=== PATIENT | male | born 1935 | race Caucasian/White ===

== ENCOUNTER → 2016-08-13 | Outpatient (CLI) | payer OTHER ==
[~2016-08-13] MED LIST: ADVIN25/60 INH; APIX1TAB PO; ASPCH81X PO; ATOR-22 PO; BENZ100C7 PO; FINA5TAB4 PO; GABA-113 PO; INSU1INJ23 SQ; IPRASOL4 INH; LEVO50TA PO; LISI5TAB PO; MAGN10TA PO; METO50TA16 PO; MRLP17 PO; OMEP20CA9 PO; TAMS0.4C38 PO
--- NOTE | 2016-08-21 09:53 | CODING QUERY MEDICAL NECESSITY ---
SUPPORTING DIAGNOSIS NEEDED Dr. Comer, A supporting diagnosis is required for the test/procedure performed on this patient in order for us to be reimbursed by the patient's insurance. Please provide a supporting diagnosis for the following test/procedure listed below next to the test name along with your signature. *If there is no additional diagnosis for this patient that would support the following test/procedure please document that below next to the test/procedure. Test(s)/Procedure(s) that require a supporting diagnosis: * ([id number]) DXA BONE DENSITY, AXIAL DIAGNOSIS: DATE OF SERVICE: 08/13/16 Provider Signature: Date: Thank you Geovanni Barkley [facility] Information Management Once completed, please kindly fax back to [phone] For questions please call [phone]
== END | disposition home or self-care (01) ==
LOC: C.MAMM 09:50
PROVIDERS: ATTEND Internal Medicine
DX: M85.80 Other specified disorders of bone density and structure, unspecified site (principal); R29.890 Loss of height

== ENCOUNTER → 2016-11-20 | Outpatient (CLI) | payer OTHER ==
[2016-11-20 17:34] LABS: MEAN CORPUSCULAR HGB CONC 31.4 g/dl (32-36)
[2016-11-20 17:45] LABS: URINE APPEARANCE CLEAR (CLEAR); URINE BILIRUBIN NEG (NEG); URINE COLOR YELLOW; URINE NITRITE NEG (NEG); URINE PH 5.5 (4.5-7.5); URINE SPECIFIC GRAVITY 1.022 (1.000-1.030); UROBILINOGEN NEG (NEG); ZZUR CULT IF INDIC CLEAN CATCH NO
[2016-11-20 17:46] LABS: MANUAL MICROSCOPIC REQUIRED? NO; REVIEW REQ? NO
[2016-11-20 18:00] LABS: BLOOD UREA NITROGEN 27 mg/dl (7-18); GLUCOSE 120 mg/dl (70-99)
[2016-11-20 18:01] LABS: CALCIUM 9.2 mg/dl (8.5-10.1); CARBON DIOXIDE 25 mmol/L (21-32); CHLORIDE 110 mmol/L (98-107); PHOSPHORUS 3.5 mg/dl (2.5-4.9); POTASSIUM 4.6 mmol/L (3.5-5.1); SODIUM 142 mmol/L (136-145); TOTAL IRON BINDING CAPACITY 382 mcg/dl (250-450)
[2016-11-20 18:07] LABS: HEMATOCRIT 40.7 % (42-52); MEAN CELL VOLUME 76.9 fL (80-100); MEAN CORPUSCULAR HEMOGLOBIN 24.2 pg (25-34); PLATELET COUNT 115 K/uL (130-400); RED BLOOD COUNT 5.29 M/uL (4.7-6.1); WHITE BLOOD COUNT 5.84 K/uL (4.8-10.8)
[2016-11-20 18:08] LABS: ACANTHOCYTES 1+; BASO % 0.3 %; BASO ABS # 0.02 K/uL (0-0.2); COMPLETE YES; EOS % 2.4 %; IG% 0.2 %; LYMPH % 34.4 %; LYMPH ABS # 2.01 K/uL (1.2-3.4); MONO % 8.2 %; NEUT % 54.5 %; PLT ESTIMATE DECREASED
[2016-11-20 18:14] LABS: FERRITIN 8.4 ng/ml (8.0-388.0)
[2016-11-20 18:14] LABS: RATIO 13.4 mcg/mg (0-30.0)
[2016-11-21 07:31] LABS: ESTIMATED AVERAGE GLUCOSE 169 mg/dl; HA1C FLAG Normal (Normal)
== END | disposition home or self-care (01) ==
LOC: C.LABBFT 14:44
PROVIDERS: ATTEND Internal Medicine
DX: N18.3 Chronic kidney disease, stage 3 (moderate) (principal); D64.9 Anemia, unspecified; E03.9 Hypothyroidism, unspecified; M85.80 Other specified disorders of bone density and structure, unspecified site; E11.40 Type 2 diabetes mellitus with diabetic neuropathy, unspecified

== ENCOUNTER → 2016-12-10 | Outpatient (CLI) | payer OTHER ==
--- NOTE | 2016-12-10 11:39 | DIAGNOSTIC IMAGING REPORT ---
RIGHT ANKLE 3 VIEWS CLINICAL HISTORY: Right ankle sprain. FINDINGS: 3 views the right ankle are obtained. No prior studies are available for comparison at the time of dictation. The skeletal structures are osteopenic. No fracture is seen. The ankle mortise is intact. Large dorsal and plantar calcaneal enthesophytes are observed. There is a small joint effusion. Soft tissue swelling is present around the ankle. Surgical clips are noted in the lower calf. There is advanced atherosclerotic calcification of the regional arteries. IMPRESSION: 1. Soft tissue swelling and joint effusion. No fracture is seen. 2. Osteopenia and large heel spurs. Electronically signed by: Crow Wells M.D. 12/10/2016 11:38 AM Dictated Date/Time: 12/10/2016 11:37 AM
== END | disposition home or self-care (01) ==
LOC: C.RAD 11:14
PROVIDERS: ATTEND Physician Assistant Medical
DX: S93.401A Sprain of unspecified ligament of right ankle, initial encounter (principal); X58.XXXA Exposure to other specified factors, initial encounter

== ENCOUNTER → 2016-12-24 | Outpatient (CLI) | payer OTHER ==
--- NOTE | 2016-12-24 13:14 | DIAGNOSTIC IMAGING REPORT ---
RIGHT ANKLE MIN 3 VIEWS CLINICAL HISTORY: Right ankle pain status post trauma COMPARISON: None. DISCUSSION: Surgical clips are present within the medial soft tissues. There are vascular calcifications present. No acute fractures or dislocations are visualized. The ankle mortise appears intact on these nonstress views. There is Achilles insertional and plantar calcaneal spurring. IMPRESSION: No fractures or dislocations identified. Electronically signed by: Bruce Olvera M.D. 12/24/2016 1:12 PM Dictated Date/Time: 12/24/2016 1:12 PM
--- NOTE | 2016-12-24 13:15 | DIAGNOSTIC IMAGING REPORT ---
RIGHT FOOT MIN 3 VIEWS CLINICAL HISTORY: Right foot pain TRAUMA COMPARISON: None. DISCUSSION: The bones are osteopenic. There are vascular calcifications present. There are no acute fractures or dislocations. There are no erosive or destructive changes. There is calcaneal spurring. IMPRESSION: No acute fractures identified. Electronically signed by: Bruce Olvera M.D. 12/24/2016 1:14 PM Dictated Date/Time: 12/24/2016 1:13 PM
== END | disposition home or self-care (01) ==
LOC: C.RDSM 12:50
PROVIDERS: ATTEND Family Medicine
DX: M79.671 Pain in right foot (principal); S93.401A Sprain of unspecified ligament of right ankle, initial encounter; X58.XXXA Exposure to other specified factors, initial encounter

== ENCOUNTER → 2017-05-21 | Outpatient (CLI) | payer OTHER ==
[2017-05-21 18:15] LABS: URINE APPEARANCE CLEAR (CLEAR); URINE BILIRUBIN NEG (NEG); URINE COLOR DK YELLOW; URINE NITRITE NEG (NEG); URINE PH 5.5 (4.5-7.5); URINE SPECIFIC GRAVITY 1.021 (1.000-1.030); UROBILINOGEN NEG (NEG)
[2017-05-21 18:29] LABS: MANUAL MICROSCOPIC REQUIRED? NO; REVIEW REQ? NO
== END | disposition home or self-care (01) ==
LOC: C.LABBFT 11:54
PROVIDERS: ATTEND Physician Assistant Medical
DX: M54.5 Low back pain (principal)

== ENCOUNTER → 2017-06-05 | Outpatient (CLI) | payer OTHER ==
[2017-06-05 17:58] LABS: CHOLESTEROL/HDL RATIO 4.7; THYROID STIMULATING HORMONE 0.882 uIu/ml (0.300-4.500)
[2017-06-05 18:45] LABS: BASO % 0.5 %; BASO ABS # 0.03 K/uL (0-0.2); COMPLETE YES; EOS % 4.8 %; HEMATOCRIT 48.9 % (42-52); IG% 0.2 %; LYMPH ABS # 2.27 K/uL (1.2-3.4); MEAN CELL VOLUME 86.9 fL (80-100); MEAN CORPUSCULAR HEMOGLOBIN 29.7 pg (25-34); MEAN PLATELET VOLUME 12.3 fL (7.4-10.4); MONO % 7.1 %; NEUT % 51.4 %; PLATELET COUNT 101 K/uL (130-400); PLT ESTIMATE DECREASED; RED BLOOD COUNT 5.63 M/uL (4.7-6.1); WHITE BLOOD COUNT 6.31 K/uL (4.8-10.8)
[2017-06-06 06:25] LABS: ESTIMATED AVERAGE GLUCOSE 140 mg/dl; HA1C FLAG Normal (Normal)
== END | disposition home or self-care (01) ==
LOC: C.LABBFT 15:23
PROVIDERS: ATTEND Internal Medicine
DX: E78.5 Hyperlipidemia, unspecified (principal); E55.9 Vitamin D deficiency, unspecified; E11.21 Type 2 diabetes mellitus with diabetic nephropathy; D69.6 Thrombocytopenia, unspecified; E03.9 Hypothyroidism, unspecified

== ENCOUNTER → 2017-07-15 | Outpatient (CLI) | payer OTHER ==
--- NOTE | 2017-07-15 12:06 | DIAGNOSTIC IMAGING REPORT ---
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 Coronal reformatted images were acquired. A dose lowering technique was utilized adhering to the principles of ALARA. COMPARISON STUDY: None. FINDINGS: Both mastoids are opacified. There is soft tissue opacification of the left middle ear cavity. There is ossicular erosion. The scutum is eroded. The findings are indicative of a cholesteatoma. On the right, there is a small amount of soft tissue within the middle ear cavity abutting the lateral aspect of the ossicles and tympanic membrane. The scutum is also eroded. A right-sided cholesteatoma is also suspected. There is tympanic membrane thickening. The internal auditory canals appear symmetric in appearance. No cochlear or semicircular canal abnormalities are visualized. IMPRESSION: 1. Opacification of both mastoids 2. Soft tissue opacification of the left middle ear cavity with a singular erosion and scutum erosion. The findings are consistent with a cholesteatoma 3. Small amount of soft tissue with the right middle ear cavity with scutum erosion. A small right-sided cholesteatoma is suspected Electronically signed by: Bruce Olvera M.D. 07/15/2017 12:05 PM Dictated Date/Time: 07/15/2017 11:58 AM
== END | disposition home or self-care (01) ==
LOC: C.CTS 11:41
PROVIDERS: ATTEND Physician Assistant
DX: H90.6 Mixed conductive and sensorineural hearing loss, bilateral (principal)

== ENCOUNTER → 2017-10-06 | Outpatient (CLI) | payer OTHER ==
[~2017-10-06] MED LIST changes: -ADVIN25/60 INH; -ATOR-22 PO; +ATOR-24 PO; -BENZ100C7 PO; +DULO60CA44 PO; +FLM4 PO; -GABA-113 PO; -IPRASOL4 INH; -MAGN10TA PO; +MAGN400T6 PO; -MRLP17 PO; -OMEP20CA9 PO; +PREG100C PO; +PRLSR20 PO; +RANI150T3 PO; -TAMS0.4C38 PO; +TRAM-10 PO; +TRMCR515 TOP
[2017-10-06 17:53] LABS: ALT/SGPT 33 U/L (12-78); AST/SGOT 16 U/L (15-37)
[2017-10-06 20:53] LABS: HEMATOCRIT 49.4 % (42-52); MEAN CELL VOLUME 88.5 fL (80-100); MEAN CORPUSCULAR HEMOGLOBIN 32.3 pg (25-34); MEAN CORPUSCULAR HGB CONC 36.4 g/dl (32-36); MEAN PLATELET VOLUME 12.4 fL (7.4-10.4); PLATELET COUNT 99 K/uL (130-400); RED CELL DISTRIBUTION WIDTH CV 14.4 % (11.5-14.5); RED CELL DISTRIBUTION WIDTH SD 46.4 fL (36.4-46.3); WHITE BLOOD COUNT 6.93 K/uL (4.8-10.8)
[2017-10-07 06:12] LABS: HEMOGLOBIN A1C 6.3 % (4.5-5.6)
== END | disposition home or self-care (01) ==
LOC: C.LABBFT 15:46
PROVIDERS: ATTEND Internal Medicine
DX: D69.6 Thrombocytopenia, unspecified (principal); E55.9 Vitamin D deficiency, unspecified; E78.5 Hyperlipidemia, unspecified; E11.9 Type 2 diabetes mellitus without complications; R52 Pain, unspecified

== ENCOUNTER → 2017-10-08 | Day surgery (SDC) | payer OTHER ==
[2017-09-24 11:20] VITALS: Ht 172.7 cm; Wt 96.4 kg
[~2017-10-08] VITALS: Ht 172.7 cm; Wt 96.4 kg
[~2017-10-08] MED LIST changes: +500ML BSS 0.3ML EPI 1:1000PF IRRIG ONE; +ACETAMINOPHEN 325 MG TAB PO PRN; +AMVISC PLUS 0.8ML SYRINGE INT OCU ONE; +ATROPINE SULFATE 0.1 MG/ML 5ML SYR IV PRN; +AcetaZOLAMIDE 250 MG TAB PO SCH; +BETAXOLOL HCL 0.25% OP SUSP PER DROP CHARGE OPL SCH; +BRIMONIDINE TART 0.2% OP SOLN PER DROP CHARGE ONE; +BSS FLUSH ONE; +ENDOCOAT 0.85ML SYRINGE INT OCU ONE; +EpHEDrine SULFATE INJ 50 MG/ML AMP IV PRN; +EpINEphrine INJ 1MG/ML AMP 1 MG/ML AMP ONE; +FENTANYL CITRATE INJ 50 MCG/1 ML 2 ML VIAL IV PRN; +FLUMAZENIL 0.1 MG/1 ML 10 ML VIAL IV PRN; +HYDROmorphone INJ 2 MG/ML SYR/VIAL IV PRN; +LABETALOL HCL IV 5 MG/ML 20ML IV PRN; +LACTATED RINGER'S 1000ML 500 ML IV SCH; +LIDOCAINE 4% OP SOLN DROP CHARGE ONE; +LIDOCAINE 4% OP SOLN DROP CHARGE OPL SCH; +LIDOCAINE HCL 1% MPF 2 ML VIAL ONE; +MEPERIDINE HCL 25 MG/ML CARP IV PRN; +MIDAZOLAM HCL 1 MG/ML 2ML VIAL ONE; +MIX: 4ML BSS 1ML EPI 1:1000 PF INSTIL ONE; +MOXIFLOXACIN OPH SOLN PER DROP CHARGE ONE; +NALOXONE HCL 0.4 MG/1 ML VIAL/CARP IV PRN; +ONDANSETRON INJ 2 MG/ML 2 ML VIAL IV PRN; +PHENYLEPHRINE 100MCG/ML 5ML SYR IV PRN; +POVIDONE-IODINE OP SOLN 30 ML BTL ONE; +PROPARACAINE 0.5% OP SOLN PER DROP CHARGE OPL SCH; +TOBRAMYCIN/DEXAMETHASONE OPH OINT PER APPLN CHARGE ONE
[2017-10-08] MEDS: PHENYLEPHRINE HCL 2.5% OP SOLN PER DROP CHARGE OPL SCH ×2 (07:43→07:48)
[2017-10-08] MEDS: TROPICAMIDE 1% OP SOLN PER DROP CHARGE OPL SCH ×2 (07:44→07:49)
[2017-10-08] MEDS: CYCLOPENTOLATE HCL 1% OP SOLN PER DROP CHARGE OPL SCH ×2 (07:45→07:50)
[2017-10-08] MEDS: MOXIFLOXACIN OPH SOLN PER DROP CHARGE OPL SCH ×2 (07:46→07:56)
--- NOTE | 2017-10-08 07:51 | History & Physical Bridge - SC ---
H&P Re-Evaluation Bridge Note: I have examined the patient, reviewed the History & Physical and in the interval since the performance of the History & Physical I have noted the following changes of clinical significance: No changes noted
--- NOTE | 2017-10-08 08:29 | [facility] Operative Report ---
Operative Report Date of Service Oct 08, 2017. Operative Report 1. PREOPERATIVE DIAGNOSIS: Senile nuclear cataract, left eye. 2. POSTOPERATIVE DIAGNOSIS: Senile nuclear cataract, left eye. 3. PROCEDURE: Phacoemulsification of left cataract with posterior chamber lens implant, type Bausch [employer] Lomb, model MX60, power +21.0 diopters. ANESTHESIA: Local standby. SURGEON: Dr. Cruz. COMPLICATIONS: None. OPERATING TIME: 10 minutes. 4. OPERATION AND FINDINGS: DESCRIPTION OF PROCEDURE: The left pupil was dilated. The anesthetic was administered using a topical technique. The left eye was prepped and draped. A speculum was placed. A clear corneal incision was formed. The chamber was filled with Amvisc Plus and Endocoat. Epinephrine solution was used. A paracentesis was placed. A capsulorrhexis was performed. The nucleus was hydrodissected. The lens was removed with phacoemulsification. The Iris was very floppy. Time was 2.16 seconds. The aspiration unit was used to remove the cortex. The capsule was filled with Amvisc Plus. The lens implant was folded and placed into the capsule. The incision was hydrated. The Amvisc was aspirated. The wound was secure. The chamber was deep. The pupil was round. Brimonidine, TobraDex ointment and Vigamox solution were placed. The speculum was removed. The patient was returned to the Recovery Room in stable condition. I attest to the content of the Intraoperative Record and any orders documented therein. Any exceptions are noted below. The scribe's documentation has been prepared in my presence, under my direction and personally reviewed by me in its entirety. I confirm that the note above accurately reflects all work, treatment, procedures, and medical decision making performed by me. I personally scribed for Gee Cruz M.D. ([email or web address]) on 10/08/17 at 08:29. Electronically submitted by Keri SLATER).
--- NOTE | 2017-10-08 08:31 | Discharge Instructions-SurgCtr ---
Discharge Instructions Date of Service Oct 08, 2017. Visit Reason for Visit: Cataract Left Eye Discharge Discharge Diagnosis / Problem: lens implant left eye Discharge Goals Goal(s): Improve function Activity Recommendations Activity Limitations: resume your previous activity Lifting Limitations: no more than 10 pounds Exercise/Sports Limitations: gradually increase as tolerated May Resume Sexual Activity: when tolerated Shower/Bathe: tomorrow Driving or Machine Use: resume 1 day after discharge Anesthesia . Post Anesthesia Instructions: If you have had General Anesthesia or IV Sedation: * Do not drive today. * Resume driving when surgeon permits. * Do not make important decisions or sign legal documents today. * Call surgeon for: 1. Temperature elevations greater than 101 degrees F. 2. Uncontrollable pain. 3. Excessive bleeding. 4. Persistent nausea and vomiting. 5. Medication intolerance (nausea, vomiting or rash). * For nausea and vomiting use only clear liquids such as: tea, soda, bouillon until nausea subsides, then gradually increase diet as tolerated. * If you have any concerns or questions, call your surgeon's office. If physician is unavailable and it is an emergency, call 911 or go to the nearest emergency room. . Instructions / Follow-Up Instructions / Follow-Up ACTIVITY RECOMMENDATIONS: * Light activities. * Mild irritation and blurred vision are common for the first few days. * You may walk outside, read, watch television. * Redness around the white part of the eye is common. MEDICATIONS: Resume previous medications unless instructed otherwise by your surgeon. * Take white Diamox (Acetazolamide) tablet at 1 pm today. Start all eye drops at 1 pm today: * Eye drops (today and tomorrow): Prednisone - one drop in operative eye every 3 hours while awake Ofloxacin - one drop in operative eye every 3 hours while awake SPECIAL CARE INSTRUCTIONS: * Tape plastic shield over eye to sleep at night. Call your doctor at with any concerns or problems. FOLLOW UP VISIT: Follow-up with Dr Cruz at [facility] as scheduled. Diet Recommendations Home Diet: no limitations Procedures Procedures Performed: Left Eye Cataract Phacoemulsification With Intraocular Lens Implant Pending Studies Studies pending at discharge: no Medical Emergencies . Who to Call and When: Medical Emergencies: If at any time you feel your situation is an emergency, please call 911 immediately. . Non-Emergent Contact Non-Emergency issues call your: Business Test Analyst Call Non-Emergent contact if: your pain is not controlled [phone] . . "Provider Documentation" section prepared by Gee Cruz. .
[2017-10-08 08:33] VITALS: TEMP 36.8
--- NOTE | 2017-10-08 09:01 | Anesthesia Progress Nt - [facility] ---
Anesthesia Post Op Note Date & Time Oct 08, 2017 at 09:01 Vital Signs Pain Intensity: 0 Vital Signs Past 12 Hours Date Time Temp Pulse Resp B/P (MAP) Pulse Ox O2 Delivery O2 Flow Rate FiO2 10/08/17 08:33 36.8 67 16 163/106 (125) 98 Room Air 10/08/17 07:32 36.5 72 20 141/104 (116) 98 Room Air Notes Mental Status: alert / awake / arousable, participated in evaluation Pt Amnestic to Procedure: Yes Nausea / Vomiting: adequately controlled Pain: adequately controlled Airway Patency, RR, SpO2: stable & adequate BP & HR: stable & adequate, see Notes Hydration State: stable & adequate Anesthetic Complications: no major complications apparent The patient was hypertensive in preop and postop. He was instructed to take his BP meds when he goes home.
[2017-10-08 09:15] VITALS: BP 115/80; PULSE 58; O2SAT 98
== END | disposition home or self-care (01) ==
LOC: X.SURG 07:21
PROVIDERS: ATTEND Specialist
DX: H25.12 Age-related nuclear cataract, left eye (principal); I51.9 Heart disease, unspecified; Z79.82 Long term (current) use of aspirin; Z79.899 Other long term (current) drug therapy; Z79.4 Long term (current) use of insulin; Z79.01 Long term (current) use of anticoagulants

== ENCOUNTER → 2017-10-14 | Outpatient (CLI) | payer OTHER ==
[~2017-10-14] MED LIST changes: -500ML BSS 0.3ML EPI 1:1000PF IRRIG ONE; -ACETAMINOPHEN 325 MG TAB PO PRN; -AMVISC PLUS 0.8ML SYRINGE INT OCU ONE; -ATROPINE SULFATE 0.1 MG/ML 5ML SYR IV PRN; -AcetaZOLAMIDE 250 MG TAB PO SCH; -BETAXOLOL HCL 0.25% OP SUSP PER DROP CHARGE OPL SCH; -BRIMONIDINE TART 0.2% OP SOLN PER DROP CHARGE ONE; -BSS FLUSH ONE; -ENDOCOAT 0.85ML SYRINGE INT OCU ONE; -EpHEDrine SULFATE INJ 50 MG/ML AMP IV PRN; -EpINEphrine INJ 1MG/ML AMP 1 MG/ML AMP ONE; -FENTANYL CITRATE INJ 50 MCG/1 ML 2 ML VIAL IV PRN; -FLUMAZENIL 0.1 MG/1 ML 10 ML VIAL IV PRN; -HYDROmorphone INJ 2 MG/ML SYR/VIAL IV PRN; -LABETALOL HCL IV 5 MG/ML 20ML IV PRN; -LACTATED RINGER'S 1000ML 500 ML IV SCH; -LIDOCAINE 4% OP SOLN DROP CHARGE ONE; -LIDOCAINE 4% OP SOLN DROP CHARGE OPL SCH; -LIDOCAINE HCL 1% MPF 2 ML VIAL ONE; -MEPERIDINE HCL 25 MG/ML CARP IV PRN; -MIDAZOLAM HCL 1 MG/ML 2ML VIAL ONE; -MIX: 4ML BSS 1ML EPI 1:1000 PF INSTIL ONE; -MOXIFLOXACIN OPH SOLN PER DROP CHARGE ONE; -NALOXONE HCL 0.4 MG/1 ML VIAL/CARP IV PRN; -ONDANSETRON INJ 2 MG/ML 2 ML VIAL IV PRN; -PHENYLEPHRINE 100MCG/ML 5ML SYR IV PRN; -POVIDONE-IODINE OP SOLN 30 ML BTL ONE; -PROPARACAINE 0.5% OP SOLN PER DROP CHARGE OPL SCH; -TOBRAMYCIN/DEXAMETHASONE OPH OINT PER APPLN CHARGE ONE
--- NOTE | 2017-10-14 09:55 | DIAGNOSTIC IMAGING REPORT ---
ABDOMEN LIMITED (US) HISTORY: 81 years-old Male R10.9 Abdominal painCan not do today or [id number] acute generalized abdominal pain COMPARISON: CT abdomen and pelvis 05/28/2017 TECHNIQUE: Multiple real-time sonographic images of the abdominal right upper quadrant were obtained assessing grayscale appearance and color flow FINDINGS: Study is limited secondary to patient body habitus. Pancreas is mostly obscured by bowel gas. Liver demonstrates no focal mass lesions or intrahepatic biliary ductal dilation. Pneumobilia is better seen on comparison CT. Common bile duct is normal, 6 mm. Prior cholecystectomy. 2.7 cm cyst of the superior pole right kidney redemonstrated. No right sided hydronephrosis. Mild cortical thinning of the right kidney is suggested. IMPRESSION: 1. 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 2. No biliary ductal dilation. 3. 2.7 cm right renal cyst. The above report was generated using voice recognition software. It may contain grammatical, syntax or spelling errors. Electronically signed by: Mason Cisneros M.D. 10/14/2017 9:54 AM Dictated Date/Time: 10/14/2017 9:50 AM
== END | disposition home or self-care (01) ==
LOC: C.ULTR 09:25
PROVIDERS: ATTEND Internal Medicine
DX: R10.9 Unspecified abdominal pain (principal); Z90.49 Acquired absence of other specified parts of digestive tract; N28.1 Cyst of kidney, acquired

== ENCOUNTER → 2017-10-22 | Day surgery (SDC) | payer OTHER ==
[2017-10-20 14:50] VITALS: Ht 172.7 cm; Wt 96.4 kg
[~2017-10-22] VITALS: Ht 172.7 cm; Wt 96.4 kg
[~2017-10-22] MED LIST changes: +500ML BSS 0.3ML EPI 1:1000PF IRRIG ONE; +ACETAMINOPHEN 325 MG TAB PO PRN; +AMVISC PLUS 0.8ML SYRINGE INT OCU ONE; +ATROPINE SULFATE 0.1 MG/ML 5ML SYR IV PRN; +AcetaZOLAMIDE 250 MG TAB PO SCH; +BETAXOLOL HCL 0.25% OP SUSP PER DROP CHARGE OPR SCH; +BRIMONIDINE TART 0.2% OP SOLN PER DROP CHARGE ONE; +BSS FLUSH ONE; +ENDOCOAT 0.85ML SYRINGE INT OCU ONE; +EpHEDrine SULFATE INJ 50 MG/ML AMP IV PRN; +EpINEphrine INJ 1MG/ML AMP 1 MG/ML AMP ONE; +HydrALAZINE HCL 20 MG/ML VIAL ONE; +LACTATED RINGER'S 1000ML 500 ML IV SCH; +LIDOCAINE 4% OP SOLN DROP CHARGE ONE; +LIDOCAINE 4% OP SOLN DROP CHARGE OPR SCH; +LIDOCAINE HCL 1% MPF 2 ML VIAL ONE; +MIDAZOLAM HCL 1 MG/ML 2ML VIAL ONE; +MIX: 4ML BSS 1ML EPI 1:1000 PF INSTIL ONE; +MOXIFLOXACIN OPH SOLN PER DROP CHARGE ONE; +POVIDONE-IODINE OP SOLN 30 ML BTL ONE; +PROPARACAINE 0.5% OP SOLN PER DROP CHARGE OPR SCH; +TOBRAMYCIN/DEXAMETHASONE OPH OINT PER APPLN CHARGE ONE
[2017-10-22] MEDS: PHENYLEPHRINE HCL 2.5% OP SOLN PER DROP CHARGE OPR SCH ×2 (08:28→08:33)
[2017-10-22] MEDS: TROPICAMIDE 1% OP SOLN PER DROP CHARGE OPR SCH ×2 (08:29→08:34)
[2017-10-22] MEDS: CYCLOPENTOLATE HCL 1% OP SOLN PER DROP CHARGE OPR SCH ×2 (08:30→08:35)
[2017-10-22] MEDS: MOXIFLOXACIN OPH SOLN PER DROP CHARGE OPR SCH ×2 (08:32→08:39)
--- NOTE | 2017-10-22 09:26 | [facility] Operative Report ---
Operative Report Date of Service Oct 22, 2017. Operative Report 1. PREOPERATIVE DIAGNOSIS: Senile nuclear cataract, right eye. 2. POSTOPERATIVE DIAGNOSIS: Senile nuclear cataract, right eye. 3. PROCEDURE: Phacoemulsification of right cataract with posterior chamber lens implant, type Bausch & Lomb, model MX60, power +21.0 diopters. ANESTHESIA: Local standby. SURGEON: Dr. Cruz. COMPLICATIONS: None. OPERATING TIME: 10 minutes. 4. OPERATION AND FINDINGS: DESCRIPTION OF PROCEDURE: The right pupil was dilated. The anesthetic was administered using a topical technique. The right eye was prepped and draped. A speculum was placed. A clear corneal incision was formed. The chamber was filled with Amvisc Plus and Endocoat. Epinephrine solution was used. A paracentesis was placed. A capsulorrhexis was performed. The nucleus was hydrodissected. The lens was removed with phacoemulsification. Time was 2.43 seconds. The aspiration unit was used to remove the cortex. The capsule was filled with Amvisc Plus. The lens implant was folded and placed into the capsule. The incision was hydrated. The Amvisc was aspirated. The wound was secure. The chamber was deep. The pupil was round. Brimonidine, TobraDex ointment and Vigamox solution were placed. The speculum was removed. The patient was returned to the Recovery Room in stable condition. I attest to the content of the Intraoperative Record and any orders documented therein. Any exceptions are noted below. The scribe's documentation has been prepared in my presence, under my direction and personally reviewed by me in its entirety. I confirm that the note above accurately reflects all work, treatment, procedures, and medical decision making performed by me. I personally scribed for Gee Cruz M.D. ([email or web address]) on 10/22/17 at 09:26. Electronically submitted by Keri Mortensen ([email or web address]).
--- NOTE | 2017-10-22 09:29 | Discharge Instructions-SurgCtr ---
Discharge Instructions Date of Service Oct 22, 2017. Visit Reason for Visit: Right Cataract Discharge Discharge Diagnosis / Problem: lens implant right eye Discharge Goals Goal(s): Improve function Activity Recommendations Activity Limitations: resume your previous activity Lifting Limitations: no more than 10 pounds Exercise/Sports Limitations: gradually increase as tolerated May Resume Sexual Activity: when tolerated Shower/Bathe: tomorrow Driving or Machine Use: resume 1 day after discharge Anesthesia . Post Anesthesia Instructions: If you have had General Anesthesia or IV Sedation: * Do not drive today. * Resume driving when surgeon permits. * Do not make important decisions or sign legal documents today. * Call surgeon for: 1. Temperature elevations greater than 101 degrees F. 2. Uncontrollable pain. 3. Excessive bleeding. 4. Persistent nausea and vomiting. 5. Medication intolerance (nausea, vomiting or rash). * For nausea and vomiting use only clear liquids such as: tea, soda, bouillon until nausea subsides, then gradually increase diet as tolerated. * If you have any concerns or questions, call your surgeon's office. If physician is unavailable and it is an emergency, call 911 or go to the nearest emergency room. . Instructions / Follow-Up Instructions / Follow-Up ACTIVITY RECOMMENDATIONS: * Light activities. * Mild irritation and blurred vision are common for the first few days. * You may walk outside, read, watch television. * Redness around the white part of the eye is common. MEDICATIONS: Resume previous medications unless instructed otherwise by your surgeon. * Take white Diamox (Acetazolamide) tablet at 1 pm today. Start all eye drops at 1 pm today: * Eye drops (today and tomorrow): Prednisone - one drop in operative eye every 3 hours while awake Ofloxacin - one drop in operative eye every 3 hours while awake SPECIAL CARE INSTRUCTIONS: * Tape plastic shield over eye to sleep at night. Call your doctor at with any concerns or problems. FOLLOW UP VISIT: Follow-up with Dr Curz at [place] office as scheduled. Diet Recommendations Home Diet: no limitations Procedures Procedures Performed: Right Cataract Phacoemulsification With Intraocular Lens Implant Pending Studies Studies pending at discharge: no Medical Emergencies . Who to Call and When: Medical Emergencies: If at any time you feel your situation is an emergency, please call 911 immediately. . Non-Emergent Contact Non-Emergency issues call your: Side Laster Tack Call Non-Emergent contact if: your pain is not controlled [phone] . . "Provider Documentation" section prepared by Gee Cruz. .
[2017-10-22 09:32] VITALS: TEMP 36.2
[2017-10-22 09:52] VITALS: O2SAT 96
[2017-10-22 10:01] VITALS: BP 136/87; PULSE 74
--- NOTE | 2017-10-22 11:04 | Anesthesia Progress Nt - [facility] ---
Anesthesia Post Op Note Date & Time Oct 22, 2017 at 10:18 Vital Signs Pain Intensity: 0 Vital Signs Past 12 Hours Date Time Temp Pulse Resp B/P (MAP) Pulse Ox O2 Delivery O2 Flow Rate FiO2 10/22/17 10:01 74 136/87 (103) 10/22/17 09:52 69 16 151/78 (102) 96 Room Air 10/22/17 09:32 36.2 71 18 160/101 (120) 97 Room Air 10/22/17 08:22 36.8 60 20 151/92 (111) 96 Room Air Notes Mental Status: alert / awake / arousable, participated in evaluation Pt Amnestic to Procedure: Yes Nausea / Vomiting: adequately controlled Pain: adequately controlled Airway Patency, RR, SpO2: stable & adequate BP & HR: stable & adequate Hydration State: stable & adequate Anesthetic Complications: no major complications apparent The patient is an 81 y/o with a h/o HTN, DLD, CAD, Afib, CVA, DM, CKD and hypothyroidism s/p R cataract surgery with Dr. Cruz. The patient's BP on arrival was 151/92 , however it became elevated to 190s/100s intraoperatively. The patient did not take any of his blood pressure medications this am. The patient was given Hydralazine 10mg IV intraoperatively with improved his BP to 136/85 prior to discharge. The patient felt well in recovery with no complaints. The patient's son was at bedside and he manages the patient's medications. He was instructed to check the patient's BP at home and if it is stable, not too low and the patient does not have any lightheaded or dizziness he can take his lisinopril. The patient can then take his afternoon dose of Toprol as scheduled. The patient was instructed to go to the ED with any chest pain, shortness of breath, lightheaded or dizziness or with any other complaints. The patient understands and agrees.
== END | disposition home or self-care (01) ==
LOC: X.SURG 07:52
PROVIDERS: ATTEND Specialist
DX: H25.11 Age-related nuclear cataract, right eye (principal); I25.10 Atherosclerotic heart disease of native coronary artery without angina pectoris; I12.9 Hypertensive chronic kidney disease with stage 1 through stage 4 chronic kidney disease, or unspecified chronic kidney disease; N18.9 Chronic kidney disease, unspecified; E11.9 Type 2 diabetes mellitus without complications; M06.9 Rheumatoid arthritis, unspecified; E03.9 Hypothyroidism, unspecified; Z79.82 Long term (current) use of aspirin; Z88.5 Allergy status to narcotic agent; Z86.73 Personal history of transient ischemic attack (TIA), and cerebral infarction without residual deficits

== ENCOUNTER 2017-10-26 11:55 | Inpatient (IN) | payer OTHER ==
[~2017-10-26] VITALS: Ht 172.7 cm; Wt 93.9 kg
[~2017-10-26 11:55] MED LIST changes: -500ML BSS 0.3ML EPI 1:1000PF IRRIG ONE; -ACETAMINOPHEN 325 MG TAB PO PRN; -AMVISC PLUS 0.8ML SYRINGE INT OCU ONE; -ATROPINE SULFATE 0.1 MG/ML 5ML SYR IV PRN; -AcetaZOLAMIDE 250 MG TAB PO SCH; -BETAXOLOL HCL 0.25% OP SUSP PER DROP CHARGE OPR SCH; -BRIMONIDINE TART 0.2% OP SOLN PER DROP CHARGE ONE; -BSS FLUSH ONE; -ENDOCOAT 0.85ML SYRINGE INT OCU ONE; -EpHEDrine SULFATE INJ 50 MG/ML AMP IV PRN; -EpINEphrine INJ 1MG/ML AMP 1 MG/ML AMP ONE; -HydrALAZINE HCL 20 MG/ML VIAL ONE; -LACTATED RINGER'S 1000ML 500 ML IV SCH; -LIDOCAINE 4% OP SOLN DROP CHARGE ONE; -LIDOCAINE 4% OP SOLN DROP CHARGE OPR SCH; -LIDOCAINE HCL 1% MPF 2 ML VIAL ONE; -MIDAZOLAM HCL 1 MG/ML 2ML VIAL ONE; -MIX: 4ML BSS 1ML EPI 1:1000 PF INSTIL ONE; -MOXIFLOXACIN OPH SOLN PER DROP CHARGE ONE; +OFLO0.3S4 OPR; -POVIDONE-IODINE OP SOLN 30 ML BTL ONE; -PROPARACAINE 0.5% OP SOLN PER DROP CHARGE OPR SCH; -TOBRAMYCIN/DEXAMETHASONE OPH OINT PER APPLN CHARGE ONE
[2017-10-26] MEDS ORDERED: ACETAMINOPHEN 325 MG TAB PO ONE (12:15)
[2017-10-26] MEDS ORDERED: METO50TA16 PO (12:23)
[2017-10-26 12:33] LABS: HEMATOCRIT 52.5 % (42-52); HEMOGLOBIN 18.6 g/dL (14.0-18.0); MEAN CELL VOLUME 89.1 fL (80-100); MEAN CORPUSCULAR HEMOGLOBIN 31.6 pg (25-34); MEAN CORPUSCULAR HGB CONC 35.4 g/dl (32-36); MEAN PLATELET VOLUME 12.3 fL (7.4-10.4); PLATELET COUNT 102 K/uL (130-400); RED CELL DISTRIBUTION WIDTH CV 14.9 % (11.5-14.5); RED CELL DISTRIBUTION WIDTH SD 48.6 fL (36.4-46.3); WHITE BLOOD COUNT 12.22 K/uL (4.8-10.8)
[2017-10-26 12:41] LABS: PTT PATIENT 29.2 SECONDS (21.0-31.0)
[2017-10-26 12:53] LABS: ALBUMIN 4.3 gm/dl (3.4-5.0); ALT/SGPT 35 U/L (12-78); AST/SGOT 25 U/L (15-37); BLOOD UREA NITROGEN 23 mg/dl (7-18); CALCIUM 9.3 mg/dl (8.5-10.1); CARBON DIOXIDE 24 mmol/L (21-32); CREATININE 1.61 mg/dl (0.60-1.40); GLUCOSE 189 mg/dl (70-99); POTASSIUM 4.1 mmol/L (3.5-5.1); SODIUM 137 mmol/L (136-145)
[2017-10-26 12:58] LABS: ALKALINE PHOSPHATASE 114 U/L (45-117); TOTAL PROTEIN 8.6 gm/dl (6.4-8.2)
[2017-10-26 13:02] LABS: BASO % 0.2 %; BASO ABS # 0.02 K/uL (0-0.2); EOS % 0.7 %; EOS ABS # 0.08 K/uL (0-0.5); IG# 0.03 K/uL (0.00-0.02); LYMPH % 12.5 %; LYMPH ABS # 1.53 K/uL (1.2-3.4); MONO % 6.2 %; MONO ABS # 0.76 K/uL (0.11-0.59); NEUT % 80.2 %
--- NOTE | 2017-10-26 13:05 | DIAGNOSTIC IMAGING REPORT ---
SINGLE VIEW CHEST CLINICAL HISTORY: Sepsis. FINDINGS: An AP, portable, upright chest radiograph is compared to study dated 02/16/2016. The examination is degraded by portable technique and patient rotation. The patient is status post midline sternotomy. The heart is enlarged and there is atherosclerotic calcification of the thoracic aorta. The pulmonary vasculature is noncongested. Epicardial pacing leads are noted. Chronic interstitial thickening is similar to previous. No airspace consolidation or large pleural effusion is identified. No pneumothorax is seen. The skeletal structures are osteopenic. The bony thorax is grossly intact. IMPRESSION: Cardiomegaly with no acute cardiopulmonary abnormality. Electronically signed by: Crow Wells M.D. 10/26/2017 1:03 PM Dictated Date/Time: 10/26/2017 1:03 PM
[2017-10-26 14:13] LABS: INFLUENZA A PCR Neg for Influ A (NEG); INFLUENZA B PCR Neg for Influ B (NEG)
[2017-10-26] MEDS ORDERED: SODIUM CHLORIDE 0.9% 500ML 500 ML IV STA (14:59)
--- NOTE | 2017-10-26 15:33 | DIAGNOSTIC IMAGING REPORT ---
CT SCAN OF THE CHEST WITHOUT IV CONTRAST CLINICAL HISTORY: Sepsis. COMPARISON STUDY: Chest x-ray dated 10/26/2017. TECHNIQUE: CT scan of the thorax was performed from the thoracic inlet to the upper abdomen. Images are reviewed in the axial, sagittal, and coronal planes. IV contrast was not administered for this examination. A dose lowering technique was utilized adhering to the principles of ALARA. The examination is degraded by motion artifact. CT DOSE: 599.61 mGy.cm FINDINGS: Thyroid: Imaged portions of the thyroid gland are normal in size and attenuation. Thoracic aorta: There is mild atherosclerotic calcification of the thoracic aorta, which is normal in caliber and demonstrates bovine variant arch anatomy. Heart: The patient is status post midline sternotomy. Pericardial pacing leads are noted. The heart is enlarged and without pericardial effusion. The coronary arteries and mitral annulus are densely calcified. The main pulmonary arteries are mildly dilated suggesting pulmonary artery hypertension. Lungs and pleural spaces: Evaluation of lung parenchyma is degraded by motion artifact. The trachea and central airways are clear. There is patchy groundglass consolidation identified in the right upper lobe, best seen on axial image #83. The lungs are otherwise clear noting dependent atelectasis. No pleural effusion is identified. A calcific granuloma is noted at the left apex. Mediastinum: Scattered subcentimeter mediastinal lymph nodes are not pathologically enlarged by size criteria. [place]: Not well assessed without IV contrast. Axillae: There is no axillary lymphadenopathy. Upper abdomen: A moderate hiatal hernia is identified. Cholecystectomy clips are noted. Pneumobilia suggests previous sphincterotomy. Skeletal structures: The skeletal structures are osteopenic. Degenerative change and hyperkyphosis are noted throughout the thoracic spine. No lytic or blastic bony lesions are seen. IMPRESSION: 1. There is patchy groundglass consolidation identified in the right upper lobe consistent with an infectious/inflammatory pneumonitis. 2. The lungs are otherwise clear. No pleural effusion is seen. 3. Cardiomegaly. 4. Moderate hiatal hernia. 5. Pneumobilia suggests previous sphincterotomy. Clinical correlation will be required. Electronically signed by: Crow Wells M.D. 10/26/2017 3:31 PM Dictated Date/Time: 10/26/2017 3:24 PM
[2017-10-26] MEDS ORDERED: LEVAQUIN 750MG / 150ML D5W IV STA (15:44)
--- NOTE | 2017-10-26 16:30 | EMERGENCY ROOM VISIT NOTE ---
History Report prepared by Ivanna: Nely Leblanc Under the Supervision of: Dr. Damian Delgadillo M.D. First contact with patient: 12:03 Chief Complaint: RESPIRATORY DISTRESS Stated Complaint: TROUBLE BREATHING,SHAKING STARTED 2 HRS AGO History of Present Illness The patient is an 82 year old male who presents to the Emergency Room with complaints of persistent chills starting this morning. He reports that he has been shaking with chills all morning. He also has some SOB. He has had a cough, sore throat, and rhinorrhea. He denies any fever or urinary symptoms. He has urinated a couple times this morning. He has not been outside in the cold. Source of History: patient Onset: this morning Position: other (whole body) Symptom Intensity: severe Quality: other (chills) Timing: other (persistent) Associated Symptoms: + sorethroat, + cough, + SOB, No fevers, No urinary symptoms Note: Pt reports shaking, rhinorrhea. Review of Systems See HPI for pertinent positives & negatives. A total of 10 systems reviewed and were otherwise negative. 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 Family History Diabetes mellitus Heart disease Kidney disease Kidney stones Social History Smoking Status: Never Smoker Alcohol Use: none Drug Use: none Marital Status: single Housing Status: lives with family Occupation Status: retired Current/Historical Medications Scheduled Apixaban (Eliquis), 2.5 MG PO BID Aspirin (Aspirin Chewable), 81 MG PO QAM Atorvastatin (Lipitor), 40 MG PO DAILY Duloxetine Hcl (Cymbalta), 60 MG PO DAILY Finasteride (Proscar), 5 MG PO QAM Insulin Isophane (Human) (Humulin N Kwikpen), 35 UNITS SQ BID Levothyroxine Sodium (Synthroid), 50 MCG PO QAM Lisinopril (Prinivil), 5 MG PO QAM Magnesium Oxide (Mag-Ox), 400 MG PO BID Metoprolol Tartrate (Lopressor) (Lopressor), 50 MG PO BID Ofloxacin (Oph) (Ocuflox Oph Soln), 1 DROP OPR QID Omeprazole (Prilosec), 20 MG PO QAM Pregabalin (Lyrica), 100 MG PO Q8H Ranitidine Hcl (Zantac), 150 MG PO BID Tamsulosin HCl (Tamsulosin HCl), 1 CAP PO DAILY Scheduled PRN Tramadol (Ultram), 50 MG PO BID PRN for Pain Triamcinolone Acet (Triamcinolone Acetonide), 1 APPLN TOP BID PRN for PRN Allergies Coded Allergies: Oxycodone (Verified Adverse Reaction, Mild, NAUSEA/VOMITING, 10/26/17) N/V Physical Exam Vital Signs Date Time Temp Pulse Resp B/P (MAP) Pulse Ox O2 Delivery O2 Flow Rate FiO2 10/26/17 16:28 86 10/26/17 15:40 79 16 102/61 96 Room Air 10/26/17 14:31 37.8 72 20 99/62 96 Room Air 10/26/17 13:23 76 18 127/74 96 Room Air 10/26/17 12:37 95 Room Air 10/26/17 12:37 38.5 10/26/17 12:37 95 Room Air 10/26/17 12:07 74 10/26/17 11:58 36.2 82 18 155/82 97 Room Air Physical Exam Constitutional: Vital signs reviewed. Rigors. Eyes: Pupils are equal round reactive to light. Conjunctiva are noninjected. ENT: Pharynx is clear without erythema or exudate. Mucous membranes are moist. Neck supple without meningeal signs. Respiratory: Clear to auscultation bilaterally. Breath sounds are equal bilaterally. Cardiovascular: Regular rate and rhythm. No rubs or gallops. GI: Soft, nondistended and nontender. Bowel sounds are present. Musculoskeletal: No peripheral edema. No lower extremity tenderness. Integumentary: No cyanosis. Neurological: The patient is awake and alert. No focal deficits. Psychiatric: Normal affect. Medical Decision & Procedures ER Provider Diagnostic Interpretation: X-ray results as stated below per interpretation by me and the radiologist. Radiology results as stated below per my review and the radiologist's interpretation: SINGLE VIEW CHEST CLINICAL HISTORY: Sepsis. FINDINGS: An AP, portable, upright chest radiograph is compared to study dated 02/16/2016. The examination is degraded by portable technique and patient rotation. The patient is status post midline sternotomy. The heart is enlarged and there is atherosclerotic calcification of the thoracic aorta. The pulmonary vasculature is noncongested. Epicardial pacing leads are noted. Chronic interstitial thickening is similar to previous. No airspace consolidation or large pleural effusion is identified. No pneumothorax is seen. The skeletal structures are osteopenic. The bony thorax is grossly intact. IMPRESSION: Cardiomegaly with no acute cardiopulmonary abnormality. Electronically signed by: Crow Wells M.D. 10/26/2017 1:03 PM Dictated Date/Time: 10/26/2017 1:[address] SCAN OF THE CHEST WITHOUT IV CONTRAST CLINICAL HISTORY: Sepsis. COMPARISON STUDY: Chest x-ray dated 10/26/2017. TECHNIQUE: CT scan of the thorax was performed from the thoracic inlet to the upper abdomen. Images are reviewed in the axial, sagittal, and coronal planes. IV contrast was not administered for this examination. A dose lowering technique was utilized adhering to the principles of ALARA. The examination is degraded by motion artifact. CT DOSE: 599.61 mGy.cm FINDINGS: Thyroid: Imaged portions of the thyroid gland are normal in size and attenuation. Thoracic aorta: There is mild atherosclerotic calcification of the thoracic aorta, which is normal in caliber and demonstrates bovine variant arch anatomy. Heart: The patient is status post midline sternotomy. Pericardial pacing leads are noted. The heart is enlarged and without pericardial effusion. The coronary arteries and mitral annulus are densely calcified. The main pulmonary arteries are mildly dilated suggesting pulmonary artery hypertension. Lungs and pleural spaces: Evaluation of lung parenchyma is degraded by motion artifact. The trachea and central airways are clear. There is patchy groundglass consolidation identified in the right upper lobe, best seen on axial image #83. The lungs are otherwise clear noting dependent atelectasis. No pleural effusion is identified. A calcific granuloma is noted at the left apex. Mediastinum: Scattered subcentimeter mediastinal lymph nodes are not pathologically enlarged by size criteria. [place]: Not well assessed without IV contrast. Axillae: There is no axillary lymphadenopathy. Upper abdomen: A moderate hiatal hernia is identified. Cholecystectomy clips are noted. Pneumobilia suggests previous sphincterotomy. Skeletal structures: The skeletal structures are osteopenic. Degenerative change and hyperkyphosis are noted throughout the thoracic spine. No lytic or blastic bony lesions are seen. IMPRESSION: 1. There is patchy groundglass consolidation identified in the right upper lobe consistent with an infectious/inflammatory pneumonitis. 2. The lungs are otherwise clear. No pleural effusion is seen. 3. Cardiomegaly. 4. Moderate hiatal hernia. 5. Pneumobilia suggests previous sphincterotomy. Clinical correlation will be required. Electronically signed by: Crow Wells M.D. 10/26/2017 3:31 PM Dictated Date/Time: 10/26/2017 3:24 PM Laboratory Results 10/26/17 12:05 Red Blood Count 5.89, Mean Corpuscular Volume 89.1, Mean Corpuscular Hemoglobin 31.6, Mean Corpuscular Hemoglobin Concent 35.4, Mean Platelet Volume 12.3, Neutrophils (%) (Auto) 80.2, Lymphocytes (%) (Auto) 12.5, Monocytes (%) (Auto) 6.2, Eosinophils (%) (Auto) 0.7, Basophils (%) (Auto) 0.2, Neutrophils # (Auto) 9.80, Lymphocytes # (Auto) 1.53, Monocytes # (Auto) 0.76, Eosinophils # (Auto) 0.08, Basophils # (Auto) 0.02 10/26/17 12:05 Test 10/26/17 12:05 10/26/17 12:13 10/26/17 12:15 White Blood Count 12.22 K/uL (4.8-10.8) Red Blood Count 5.89 M/uL (4.7-6.1) Hemoglobin 18.6 g/dL (14.0-18.0) Hematocrit 52.5 % (42-52) Mean Corpuscular Volume 89.1 fL (80-100) Mean Corpuscular Hemoglobin 31.6 pg (25-34) Mean Corpuscular Hemoglobin Concent 35.4 g/dl (32-36) Platelet Count 102 K/uL (130-400) Mean Platelet Volume 12.3 fL (7.4-10.4) Neutrophils (%) (Auto) 80.2 % Lymphocytes (%) (Auto) 12.5 % Monocytes (%) (Auto) 6.2 % Eosinophils (%) (Auto) 0.7 % Basophils (%) (Auto) 0.2 % Neutrophils # (Auto) 9.80 K/uL (1.4-6.5) Lymphocytes # (Auto) 1.53 K/uL (1.2-3.4) Monocytes # (Auto) 0.76 K/uL (0.11-0.59) Eosinophils # (Auto) 0.08 K/uL (0-0.5) Basophils # (Auto) 0.02 K/uL (0-0.2) RDW Standard Deviation 48.6 fL (36.4-46.3) RDW Coefficient of Variation 14.9 % (11.5-14.5) Immature Granulocyte % (Auto) 0.2 % Immature Granulocyte # (Auto) 0.03 K/uL (0.00-0.02) Giant Platelets 1+ Prothrombin Time 10.8 SECONDS (9.0-12.0) Prothromb Time International Ratio 1.0 (0.9-1.1) Activated Partial Thromboplast Time 29.2 SECONDS (21.0-31.0) Partial Thromboplastin Ratio 1.1 Anion Gap 8.0 mmol/L (3-11) Est Creatinine Clear Calc Drug Dose 39.4 ml/min Estimated GFR () 45.5 Estimated GFR (Non- 39.2 BUN/Creatinine Ratio 14.2 (10-20) Bedside Glucose 173 mg/dl (70-99) Calcium Level 9.3 mg/dl (8.5-10.1) Total Bilirubin 1.0 mg/dl (0.2-1) Aspartate Amino Transf (AST/SGOT) 25 U/L (15-37) Alanine Aminotransferase (ALT/SGPT) 35 U/L (12-78) Alkaline Phosphatase 114 U/L (45-117) Troponin I < 0.015 ng/ml (0-0.045) Total Protein 8.6 gm/dl (6.4-8.2) Albumin 4.3 gm/dl (3.4-5.0) Globulin 4.3 gm/dl (2.5-4.0) Albumin/Globulin Ratio 1.0 (0.9-2) Bedside Lactic Acid Venous 1.97 mmol/L (0.90-1.70) Influenza Type A (RT-PCR) Neg for Influ A (NEG) Influenza Type B (RT-PCR) Neg for Influ B (NEG) Laboratory results as reviewed by me. Medications Administered Medications (Trade) Dose Ordered Sig/Oscar Route Start Time Stop Time Status Last Admin Dose Admin Acetaminophen (Tylenol Tab) 650 mg ONE ONCE PO 10/26/17 12:15 10/26/17 12:16 DC 10/26/17 12:52 650 MG Sodium Chloride 500 ml @ 999 mls/hr Q31M STAT IV 10/26/17 14:59 10/26/17 15:29 DC 10/26/17 14:59 999 MLS/HR Levofloxacin (Levaquin / D5W) 750 mg NOW STAT IV 10/26/17 15:44 10/26/17 15:45 DC 10/26/17 15:52 750 MG ECG Per My Interpretation Indication: SOB/dyspnea Rate (beats per minute): 83 Rhythm: atrial fibrillation Findings: other (QRS 82 ms, no ST elevation, limited due to baseline artifact) ED Course 1209: The patient was evaluated in room A12B. A complete history and physical exam was performed. 1215: Acetaminophen 650 mg PO. 1237: Patient's rectal temperature is 38.5. 1421: I reevaluated the patient. He is feeling better. 1459: NSS 500 ml @ 999 mls/hr IV. 1544: Levofloxacin 750 mg IV. 1545: I reevaluated the patient. I discussed the results with him. He verbalized agreement of the treatment plan. He will be evaluated for further management. 1549: I spoke with Dr. Alvares of [facility] hospitalist service. We discussed the patient and his results. The patient will be further evaluated by her. Medical Decision This is an 82-year-old male who presents with rigors and shortness of breath with cough. I did perform a limited focused review of portions of the patient' s old chart on the electronic medical record. The patient has had no recent pertinent visits to this hospital. I did evaluate the patient as noted above. The patient is presenting with severe rigors with shortness of breath and cold symptoms. States his symptoms were sudden onset. IV access was established. The patient was placed on a continuous examination grader. He is febrile here. He was given Tylenol. I did order sepsis orders. I did order and personally review the patient's 12-lead EKG and chest x-ray as described above. Chest x-ray was concerning for right- sided infiltrate per my interpretation but the radiologist felt that there was no signs of infection. I did order and review the patient's blood work as noted in the electronic medical record. His white blood cell count is elevated. He also has an elevated lactic acid. His blood pressure did drop somewhat and he was given a bolus of normal saline which improved his blood pressure. I did order a CT of the chest. I did review the images myself as well as the radiology report as described above. He does have a right upper lobe pneumonia. I did treat it him with Levaquin IV. I did reassess the patient. He states he feels better. I was concerned about early sepsis and so I did recommend hospitalization. I did discuss the case with the hospitalist and director case management. Flu testing is negative. I did order urine analysis. Medication Reconcilliation Current Medication List: was personally reviewed by me Blood Pressure Screening Patient's blood pressure: Elevated blood pressure Blood pressure disposition: Referred to PCP Consults Time Called: [phone] Consulting Physician: Dr. Alvares [facility] hospitalist Returned Call: [phone] I spoke with her. We discussed the patient and his results. The patient will be further evaluated by her. Impression Primary Impression: Right upper lobe pneumonia Scribe Attestation The scribe's documentation has been prepared under my direct and personally reviewed by me in its entirety. I confirm that the note above accurately reflects all work, treatment, procedures, and medical decision making performed by me. Departure Information Dispostion Being Evaluated By Hospitalist Referrals Matt Comer M.D. (PCP) Patient Instructions Asthma - [facility], COPD - [facility], Croup - [facility], My [facility] Problem Qualifiers Primary Impression: Right upper lobe pneumonia Pneumonia type: due to unspecified organism Qualified Codes: J18.1 - Lobar pneumonia, unspecified organism
[2017-10-26] MEDS ORDERED: TRAMADOL HCL 50 MG TAB PO PRN (16:45)
[2017-10-26] MEDS ORDERED: TRIAMCINOLONE ACET 0.5% CR 15 GM TUBE EXT PRN (16:45)
[2017-10-26] MEDS ORDERED: MAGNESIUM HYDROXIDE SUSP 30 ML UDC PO PRN (16:45)
[2017-10-26] MEDS ORDERED: GLUCAGON FOR INJ 1 MG VIAL SQ PRN (16:45)
[2017-10-26] MEDS ORDERED: GLUCOSE 10 TABS/TUBE PO PRN (16:45)
[2017-10-26] MEDS ORDERED: ONDANSETRON INJ 2 MG/ML 2 ML VIAL IV PRN (16:45)
[2017-10-26] MEDS: PREGABALIN 100 MG CAP PO SCH ×2 (16:45→23:44)
[2017-10-26] MEDS ORDERED: DEXTROSE 50% 50 ML SYR IV PRN (16:45)
[2017-10-26] MEDS ORDERED: GLUCOSE 40% GEL 15 GM TUBE PO PRN (16:45)
[2017-10-26] MEDS ORDERED: ACETAMINOPHEN 325 MG TAB PO PRN (16:45)
--- NOTE | 2017-10-26 16:58 | History and Physical ---
History & Physical Date & Time of Service: Oct 26, 2017 at 16:47 Chief Complaint: Trouble Breathing,Shaking Started 2 Hrs Ago Primary Care Physician: Matt Comer M.D. History of Present Illness Source: patient, family 82 y/o M c/o shaking and chills. Pt states this started a bit yesterday, but "not really", however today it was much worse from the time he woke up. He has had some rhinorrhea and a mild cough as well. Denies SOB or chest pain. He has been eating well. He has only had a bowl of cereal today due to being in the ED and is now hungry. Pt has never had PNA prior. He was given Tylenol, IVF, and levaquin in the ED and states that the chills/shaking has stopped. He is now mostly just tired. Son is present and states that he (the son) has been "sick with something for about 2 weeks now". The pt's grandchildren have been as well. They were all told that they had "something viral" and definitely not PNA. Pt denies abd pain, n/v/c/d, LE pain or swelling. Past Medical/Surgical History Medical Problems: (1) Abnormal ECG (2) Ac Myocard Infarct Oth Anterior Wall,Subseq Episod (3) Afib (4) Atrial fibrillation with rapid ventricular response (5) Atrial fibrillation with rapid ventricular response (6) Atrial fibrillation with RVR (7) Atrial flutter (8) Atrial flutter with rapid ventricular response (9) Body aches (10) Bronchitis (11) Chest pain (12) Cholelithiasis Nos (13) Complaints of total body pain (14) Coronary Atherosclerosis Of [place] Coronary Vessel (15) Elevated erythrocyte sedimentation rate (16) Elevated troponin (17) Hyperlipidemia Nec/Nos (18) Hypertension (19) Hypertension Nos (20) Hypoxia (21) Joint pain (22) Paroxysmal atrial flutter (23) Percutaneous Translum Coron Angioplasty Status (24) Postlaminectomy Synd Nos (25) Productive cough (26) Renal insufficiency (27) Trans Cereb Ischemia Nec (28) Transient hypotension (29) UTI (urinary tract infection) (30) Vestibular Neuronitis GERD Hypothyroid DM Hx of CVA > 10yrs ago Stent in 2010 CKD III, baseline cr 1.5-1.8 ??BPH Family History Family history was reviewed; no changes noted. Social History Smoking Status: Never Smoker Alcohol Use: none Drug Use: none Marital Status: single Housing status: lives with family Occupational Status: retired Immunizations History of Influenza Vaccine: No Influenza Vaccine Date: May 07, 2010 History of Tetanus Vaccine?: Unknown Tetanus Immunization Date: Aug 03, 2005 History of Pneumococcal: Unknown History of Hepatitis B Vaccine: No Allergies Coded Allergies: Oxycodone (Verified Adverse Reaction, Mild, NAUSEA/VOMITING, 10/26/17) N/V Home Medications Scheduled Apixaban (Eliquis), 2.5 MG PO BID Aspirin (Aspirin Chewable), 81 MG PO QAM Atorvastatin (Lipitor), 40 MG PO DAILY Duloxetine Hcl (Cymbalta), 60 MG PO DAILY Finasteride (Proscar), 5 MG PO QAM Insulin Isophane (Human) (Humulin N Kwikpen), 35 UNITS SQ BID Levothyroxine Sodium (Synthroid), 50 MCG PO QAM Lisinopril (Prinivil), 5 MG PO QAM Magnesium Oxide (Mag-Ox), 400 MG PO BID Metoprolol Tartrate (Lopressor) (Lopressor), 50 MG PO BID Ofloxacin (Oph) (Ocuflox Oph Soln), 1 DROP OPR QID Omeprazole (Prilosec), 20 MG PO QAM Pregabalin (Lyrica), 100 MG PO Q8H Ranitidine Hcl (Zantac), 150 MG PO BID Tamsulosin HCl (Tamsulosin HCl), 1 CAP PO DAILY Scheduled PRN Tramadol (Ultram), 50 MG PO BID PRN for Pain Triamcinolone Acet (Triamcinolone Acetonide), 1 APPLN TOP BID PRN for PRN Review of Systems Pertinent positives and negatives reviewed in HPI--all others negative Physical Exam Vital Signs Date Time Temp Pulse Resp B/P (MAP) Pulse Ox O2 Delivery O2 Flow Rate FiO2 10/26/17 16:28 86 10/26/17 15:40 79 16 102/61 96 Room Air 10/26/17 14:31 37.8 72 20 99/62 96 Room Air 10/26/17 13:23 76 18 127/74 96 Room Air 10/26/17 12:37 95 Room Air 10/26/17 12:37 38.5 10/26/17 12:37 95 Room Air 10/26/17 12:07 74 10/26/17 11:58 36.2 82 18 155/82 97 Room Air General Appearance: WD/WN, no apparent distress Head: normocephalic, atraumatic Eyes: normal inspection, sclerae normal Respiratory/Chest: normal breath sounds, no respiratory distress Cardiovascular: regular rate, rhythm, no edema Abdomen/GI: non tender, soft Extremities/Musculoskelatal: no calf tenderness, no pedal edema Neurologic/Psych: alert, normal mood/affect, oriented x 3 Skin: normal color, warm/dry Diagnostics Laboratory Results Results Past 24 Hours Test 10/26/17 12:05 10/26/17 12:13 10/26/17 12:15 Range/Units White Blood Count 12.22 4.8-10.8 K/uL Red Blood Count 5.89 4.7-6.1 M/uL Hemoglobin 18.6 14.0-18.0 g/dL Hematocrit 52.5 42-52 % Mean Corpuscular Volume 89.1 80-100 fL Mean Corpuscular Hemoglobin 31.6 25-34 pg Mean Corpuscular Hemoglobin Concent 35.4 32-36 g/dl Platelet Count 102 130-400 K/uL Mean Platelet Volume 12.3 7.4-10.4 fL Neutrophils (%) (Auto) 80.2 % Lymphocytes (%) (Auto) 12.5 % Monocytes (%) (Auto) 6.2 % Eosinophils (%) (Auto) 0.7 % Basophils (%) (Auto) 0.2 % Neutrophils # (Auto) 9.80 1.4-6.5 K/uL Lymphocytes # (Auto) 1.53 1.2-3.4 K/uL Monocytes # (Auto) 0.76 0.11-0.59 K/uL Eosinophils # (Auto) 0.08 0-0.5 K/uL Basophils # (Auto) 0.02 0-0.2 K/uL RDW Standard Deviation 48.6 36.4-46.3 fL RDW Coefficient of Variation 14.9 11.5-14.5 % Immature Granulocyte % (Auto) 0.2 % Immature Granulocyte # (Auto) 0.03 0.00-0.02 K/uL Giant Platelets 1+ Prothrombin Time 10.8 9.0-12.0 SECONDS Prothromb Time International Ratio 1.0 0.9-1.1 Activated Partial Thromboplast Time 29.2 21.0-31.0 SECONDS Partial Thromboplastin Ratio 1.1 Sodium Level 137 136-145 mmol/L Potassium Level 4.1 3.5-5.1 mmol/L Chloride Level 105 98-107 mmol/L Carbon Dioxide Level 24 21-32 mmol/L Anion Gap 8.0 3-11 mmol/L Blood Urea Nitrogen 23 7-18 mg/dl Creatinine 1.61 0.60-1.40 mg/dl Est Creatinine Clear Calc Drug Dose 39.4 ml/min Estimated GFR () 45.5 Estimated GFR (Non- 39.2 BUN/Creatinine Ratio 14.2 10-20 Bedside Glucose 173 70-99 mg/dl Random Glucose 189 70-99 mg/dl Calcium Level 9.3 8.5-10.1 mg/dl Total Bilirubin 1.0 0.2-1 mg/dl Aspartate Amino Transf (AST/SGOT) 25 15-37 U/L Alanine Aminotransferase (ALT/SGPT) 35 12-78 U/L Alkaline Phosphatase 114 45-117 U/L Troponin I < 0.015 0-0.045 ng/ml Total Protein 8.6 6.4-8.2 gm/dl Albumin 4.3 3.4-5.0 gm/dl Globulin 4.3 2.5-4.0 gm/dl Albumin/Globulin Ratio 1.0 0.9-2 Bedside Lactic Acid Venous 1.97 0.90-1.70 mmol/L Influenza Type A (RT-PCR) Neg for Influ A NEG Influenza Type B (RT-PCR) Neg for Influ B NEG Microbiology Results 10/26/17 Blood Culture, Received Pending 10/26/17 Blood Culture, Received Pending Diagnostic Radiology CXR neg CT chest with RUL pneumonitis Impression Assessment and Plan 82 y/o M who was admitted on 10/26 with RUL pneumonitis RUL pneumonitis: CXR neg, noted on CT chest CURB 65 score is 2 with a BP just bordering on hypoTN Question of bacterial vs viral given other family members with current viral illness, however pt does have an elevated WBC and lactic acid, will tx as bacterial given these factors Started on levaquin the ED, will switch to azithromycin for shorter duration of tx as outpt Flu neg Blood cx pending UA pending ARF: hx of CKD with recent cr WNL, however hx of 1.5-1.8 Monitor on gentle IVF DM: home insulin as usual, SSI PRN A1c 6.3 on 10/06/17, will not repeat HTN/afib/CAD/hx of [place] s/p stent/hx of CVA: continue home meds with hold parameters given borderline BP Continue eliquis and aspirin 81mg Hypothyroid: continue home meds ??BPH: pt takes both proscar and tamulosin, however denies hx of BPH or urinary issues Will continue for now Other: Full code Eliquis, aspirin 81mg, and SCDs for DVT proph DM diet Resuscitation Status VTE Prophylaxis Will order VTE Prophylaxis: Yes
[2017-10-26 18:10] VITALS: BP 103/66; PULSE 85; TEMP 37.3; O2SAT 96; BMI 31.5
[2017-10-26] MEDS: SODIUM CHLORIDE 0.9% 1000ML 1,000 ML IV SCH (19:22)
[2017-10-26] MEDS: OFLOXACIN 0.3% OP SOLN 5 ML BTL OPR SCH (19:23)
[2017-10-26] MEDS: MAGNESIUM OXIDE 400 MG TAB PO SCH (19:25)
[2017-10-26] MEDS: METOPROLOL TARTRATE 50 MG TAB PO SCH (19:25)
[2017-10-26] MEDS: RANITIDINE HCL 150 MG TAB PO SCH (19:25)
[2017-10-26] MEDS: APIXABAN 2.5 MG TAB PO SCH (19:26)
[2017-10-26] MEDS: INSULIN HUMAN NPH SQ SCH (19:30)
[2017-10-26] MEDS ORDERED: AZITHROMYCIN IV 500 MG in DEXTROSE 5% 250ML 250 ML IV SCH (20:00)
[2017-10-26] MEDS: INSULIN ASPART 100 UNITS/ML 3 ML PEN SC SCH (20:19)
[2017-10-26 23:39] VITALS: BP 109/69; PULSE 68; TEMP 36.8; O2SAT 98
[2017-10-27] MEDS: LEVOTHYROXINE 50 MCG TAB PO SCH (06:23)
[2017-10-27] MEDS: ATORVASTATIN 40 MG TAB PO SCH (08:05)
[2017-10-27] MEDS: PANTOprazole SOD 40 MG TAB PO SCH (08:05)
[2017-10-27] MEDS: DULOXETINE HCL 60 MG CAP PO SCH (08:05)
[2017-10-27] MEDS: TAMSULOSIN HCL 0.4 MG CAP PO SCH (08:05)
[2017-10-27] MEDS: RANITIDINE HCL 150 MG TAB PO SCH ×2 (08:06→21:16)
[2017-10-27] MEDS: METOPROLOL TARTRATE 50 MG TAB PO SCH ×2 (08:06→21:17)
[2017-10-27] MEDS: FINASTERIDE 5 MG TAB PO SCH (08:06)
[2017-10-27] MEDS: LISINOPRIL 5 MG TAB PO SCH (08:06)
[2017-10-27] MEDS: MAGNESIUM OXIDE 400 MG TAB PO SCH ×2 (08:06→21:16)
[2017-10-27] MEDS: ASPIRIN 81 MG ECTAB PO SCH (08:06)
[2017-10-27] MEDS: APIXABAN 2.5 MG TAB PO SCH ×2 (08:07→21:16)
[2017-10-27] MEDS: OFLOXACIN 0.3% OP SOLN 5 ML BTL OPR SCH ×4 (08:07→21:17)
[2017-10-27 08:12] VITALS: BP 134/85; PULSE 79; TEMP 37.6; O2SAT 95
[2017-10-27] MEDS: SODIUM CHLORIDE 0.9% 1000ML 1,000 ML IV SCH ×2 (08:12→21:37)
[2017-10-27] MEDS: INSULIN ASPART 100 UNITS/ML 3 ML PEN SC SCH ×4 (08:12→21:20)
[2017-10-27] MEDS: INSULIN HUMAN NPH SQ SCH ×2 (08:15→18:28)
[2017-10-27] MEDS: PREGABALIN 100 MG CAP PO SCH ×2 (08:16→16:06)
--- NOTE | 2017-10-27 08:52 | Clinical Documentation Query ---
NILDA MartinezICA : CLINICAL DOCUMENTATION QUERY Patient is an 82 year old male admitted for treatment of RUL pneumonitis. H&P notes ARF on CKD, not otherwise specified. Estimated GFR range dating back to 10/10/14 of 32-52 ml/min. As appropriate, consider documentation as suggested below. Thank you. In your clinical opinion is this patient being managed for: (x ) Chronic kidney disease, stage 3 ( ) Not Agree ( ) Other explanation of clinical findings (Please Explain) ( ) Unable to determine (Please Define) ( ) Need to Discuss The medical record reflects the following clinical findings, treatment, and risk factors. Clinical Indicators: As above Treatment: Serial chemistries Risk Factors: Age, atrial fibrillation, hypertension Please clarify and document your clinical opinion in the progress notes and discharge summary. Terms such as "probable", "suspected", "likely", "questionable", "possible", or "still to be ruled out" are acceptable. IF IN AGREEMENT, YOU MUST DOCUMENT ABOVE DIAGNOSTIC STATEMENT IN DAILY PROGRESS NOTES AND DISCHARGE SUMMARY. This document is not part of the patient's record. Thank You, Mikal Martino, CHRISTOPHER [phone]
[2017-10-27 09:28] VITALS: O2SAT 96
[2017-10-27 09:29] LABS: HEMATOCRIT 44.5 % (42-52); HEMOGLOBIN 15.9 g/dL (14.0-18.0); MEAN CELL VOLUME 87.6 fL (80-100); MEAN CORPUSCULAR HEMOGLOBIN 31.3 pg (25-34); MEAN CORPUSCULAR HGB CONC 35.7 g/dl (32-36); RED CELL DISTRIBUTION WIDTH CV 14.9 % (11.5-14.5); RED CELL DISTRIBUTION WIDTH SD 47.7 fL (36.4-46.3); WHITE BLOOD COUNT 11.06 K/uL (4.8-10.8)
[2017-10-27 09:48] LABS: MEAN PLATELET VOLUME 11.8 fL (7.4-10.4); PLATELET COUNT 87 K/uL (130-400)
[2017-10-27 09:49] LABS: CALCIUM 8.7 mg/dl (8.5-10.1); CREATININE 1.51 mg/dl (0.60-1.40); POTASSIUM 3.8 mmol/L (3.5-5.1)
[2017-10-27] MEDS ORDERED: SENNA 8.6 MG TAB PO ONE (14:03)
--- NOTE | 2017-10-27 14:12 | Progress Note ---
Subjective Date of Service: Oct 27, 2017. Subjective Pt evaluation today including: conversation w/ patient Pt is feeling much improved today. He has had no return of his shaking and chills. No issues with PO intake, although he feels distended. He has issues with this at baseline. He frequently feels constipated and has frequent issues with hemorrhoids as well. He uses preparation H, but without much help. He did have a bowel movement this AM, but it was small and hard. He notes he has a sore throat today. Pt denies fever, SOB, chest pain, abd pain, n/v, LE pain or swelling. Problem List Medical Problems: (1) Abnormal ECG Status: Acute (2) Atrial fibrillation with RVR Status: Acute (3) Elevated troponin Status: Acute (4) Right upper lobe pneumonia Status: Acute Objective Vital Signs Date Time Temp Pulse Resp B/P (MAP) Pulse Ox O2 Delivery O2 Flow Rate FiO2 10/27/17 09:28 96 Room Air 10/27/17 08:12 37.6 79 20 134/85 (101) 95 Room Air 10/27/17 08:10 Room Air 10/27/17 00:00 Room Air 10/26/17 23:39 36.8 68 20 109/69 (82) 98 Room Air 10/26/17 18:10 37.3 85 16 103/66 96 Room Air 10/26/17 17:40 37.2 68 16 105/76 96 Room Air 10/26/17 16:40 72 16 103/72 96 Room Air 10/26/17 16:28 86 10/26/17 15:40 79 16 102/61 96 Room Air 10/26/17 14:31 37.8 72 20 99/62 96 Room Air Physical Exam General Appearance: WD/WN, no apparent distress Eyes: normal inspection, sclerae normal Respiratory/Chest: normal breath sounds, no respiratory distress Cardiovascular: regular rate, rhythm, no edema Abdomen: non tender, soft, + distended Extremities: non-tender, no pedal edema Neurologic/Psychiatric: alert, normal mood/affect, oriented x 3 Skin: normal color, warm/dry Laboratory Results Last 24 Hours Test 10/26/17 20:11 10/27/17 07:58 10/27/17 09:01 10/27/17 11:46 Bedside Glucose 235 mg/dl 97 mg/dl 144 mg/dl White Blood Count 11.06 K/uL Red Blood Count 5.08 M/uL Hemoglobin 15.9 g/dL Hematocrit 44.5 % Mean Corpuscular Volume 87.6 fL Mean Corpuscular Hemoglobin 31.3 pg Mean Corpuscular Hemoglobin Concent 35.7 g/dl RDW Standard Deviation 47.7 fL RDW Coefficient of Variation 14.9 % Platelet Count 87 K/uL Mean Platelet Volume 11.8 fL Platelet Estimate DECREASED Sodium Level 140 mmol/L Potassium Level 3.8 mmol/L Chloride Level 112 mmol/L Carbon Dioxide Level 18 mmol/L Anion Gap 10.0 mmol/L Blood Urea Nitrogen 22 mg/dl Creatinine 1.51 mg/dl Est Creatinine Clear Calc Drug Dose 41.9 ml/min Estimated GFR () 49.1 Estimated GFR (Non- 42.4 BUN/Creatinine Ratio 14.4 Random Glucose 168 mg/dl Calcium Level 8.7 mg/dl Assessment and Plan 82 y/o M who was admitted on 10/26 with RUL pneumonitis RUL pneumonitis: CXR neg, noted on CT chest CURB 65 score is 2 with a BP just bordering on hypoTN on admission Question of bacterial vs viral given other family members with current viral illness, however pt does have an elevated WBC and lactic acid, will tx as bacterial given these factors Started on levaquin the ED, will switch to azithromycin for shorter duration of tx as outpt, switch to PO Flu neg Blood cx pending UA neg ARF: hx of CKD with recent cr WNL, however hx of 1.5-1.8 but was 1.36 05/2017 Improving on gentle IVF DM: home insulin as usual, SSI PRN A1c 6.3 on 10/06/17, will not repeat HTN/afib/CAD/hx of [place] s/p stent/hx of CVA: continue home meds with hold parameters given borderline BP Continue eliquis and aspirin 81mg Hypothyroid: continue home meds ??BPH: pt takes both proscar and tamulosin, however denies hx of BPH or urinary issues Will continue for now Other: Full code Eliquis, aspirin 81mg, and SCDs for DVT proph DM diet
[2017-10-27] MEDS ORDERED: CHLORASEPTIC 1.4% SOLN 180 ML BTL MT PRN (14:15)
[2017-10-27] MEDS ORDERED: MAGNESIUM HYDROXIDE SUSP 30 ML UDC PO ONE (14:15)
[2017-10-27 15:05] VITALS: BP_SYST 161; BP_SYST 178; BP_DIAS 106; BP_DIAS 107; PULSE 82; TEMP 36.7; O2SAT 96
[2017-10-27 16:00] VITALS: O2SAT 96
[2017-10-27 16:19] VITALS: BP 152/97
[2017-10-27] MEDS ORDERED: AZITHROMYCIN 250 MG TAB PO SCH (21:00)
[2017-10-27 23:42] VITALS: BP 155/83; PULSE 75; TEMP 36.5; O2SAT 95
[2017-10-28] MEDS: PREGABALIN 100 MG CAP PO SCH ×2 (00:03→07:47)
[2017-10-28] MEDS: LEVOTHYROXINE 50 MCG TAB PO SCH (06:14)
[2017-10-28] MEDS: PANTOprazole SOD 40 MG TAB PO SCH (07:42)
[2017-10-28] MEDS: ATORVASTATIN 40 MG TAB PO SCH (07:42)
[2017-10-28] MEDS: MAGNESIUM OXIDE 400 MG TAB PO SCH (07:42)
[2017-10-28] MEDS: RANITIDINE HCL 150 MG TAB PO SCH (07:42)
[2017-10-28] MEDS: TAMSULOSIN HCL 0.4 MG CAP PO SCH (07:42)
[2017-10-28] MEDS: DULOXETINE HCL 60 MG CAP PO SCH (07:43)
[2017-10-28] MEDS: LISINOPRIL 5 MG TAB PO SCH (07:43)
[2017-10-28] MEDS: APIXABAN 2.5 MG TAB PO SCH (07:43)
[2017-10-28] MEDS: ASPIRIN 81 MG ECTAB PO SCH (07:43)
[2017-10-28] MEDS: FINASTERIDE 5 MG TAB PO SCH (07:43)
[2017-10-28] MEDS: METOPROLOL TARTRATE 50 MG TAB PO SCH (07:44)
[2017-10-28] MEDS: OFLOXACIN 0.3% OP SOLN 5 ML BTL OPR SCH ×2 (07:44→11:55)
[2017-10-28] MEDS: INSULIN ASPART 100 UNITS/ML 3 ML PEN SC SCH ×2 (07:53→11:54)
[2017-10-28 07:55] VITALS: BP 118/76; PULSE 75; TEMP 36.5; O2SAT 96
[2017-10-28] MEDS: INSULIN HUMAN NPH SQ SCH (08:00)
[2017-10-28] MEDS ORDERED: MAGNESIUM HYDROXIDE SUSP 30 ML UDC PO SCH (08:00)
[2017-10-28] MEDS ORDERED: SENNA 8.6 MG TAB PO SCH (08:00)
[2017-10-28 11:05] LABS: CALCIUM 8.7 mg/dl (8.5-10.1); CREATININE 1.33 mg/dl (0.60-1.40); POTASSIUM 4.2 mmol/L (3.5-5.1)
[2017-10-28] MEDS: SODIUM CHLORIDE 0.9% 1000ML 1,000 ML IV SCH (11:53)
[2017-10-28 12:00] VITALS: Ht 172.7 cm; Wt 93.9 kg
[2017-10-28 13:10] VITALS: BP 118/76; PULSE 75; TEMP 36.5; O2SAT 96
[2017-10-28] MEDS ORDERED: AZIT-57 PO (14:14)
--- NOTE | 2017-10-28 14:24 | Discharge Instructions ---
Discharge Instructions Date of Service Oct 28, 2017. Admission Reason for Admission: Right Upper Lobe Pneumonia Discharge Discharge Diagnosis / Problem: Pneumonia Discharge Goals Goal(s): Decrease discomfort, Improve function, Increase independence Activity Recommendations Activity Limitations: resume your previous activity . Instructions / Follow-Up Instructions / Follow-Up Dr. Comer in 3-5 days You were given Milk of Magnesia and Senna to help with your bowel movements. You should continue taking this daily unless you start having diarrhea and it will help decrease your constipation, which will help to decrease your hemorrhoids. These are over the counter medications. You are being discharged on an antibiotic. You should start taking a probiotic. This may also help with your constipation. The probiotic I recommend most if Jarrow EPS. It is sold online or at [employer]. You want a probiotic that has a mix of multiple bacteria, specifically Lactobacillus and Bifidobacter. Your blood sugars were a bit first thing in the mornings. It sounds like you are eating less here than you would at home, but you should check your blood sugar first thing in the morning for the next few days. If it continues to be low, you should follow up with your diabetic management physician. Current Hospital Diet Patient's current hospital diet: Diabetes Type 2 Diet Discharge Diet Recommended Diet: Diabetes Type 2 Diet Pending Studies Studies pending at discharge: no Laboratory Results Hemoglobin A1c Test 10/06/17 15:53 Range/Units Estimated Average Glucose 134 mg/dl Hemoglobin A1c 6.3 H 4.5-5.6 % Medical Emergencies . Who to Call and When: Medical Emergencies: If at any time you feel your situation is an emergency, please call 911 immediately. . Non-Emergent Contact Non-Emergency issues call your: Primary Care Provider . . "Provider Documentation" section prepared by Марина Gunter. .
--- NOTE | 2017-10-28 14:31 | Discharge Summary ---
Discharge Summary Date of Service Oct 28, 2017. Discharge Summary Admission Date: Oct 26, 2017 at 16:44 Discharge Date: Oct 28, 2017 Discharge Disposition: Home Principal Diagnosis: Pneumonia Problems/Secondary Diagnoses: Afib, eliquis Hx of NE s/p stent and CVA, on aspirin 81mg Hyperlipidemia HTN Aflutter DM Hypothyroid BPH GERD Vestibular neuronitis Immunizations: Have You Had Influenza Vaccine: No Influenza Vaccine Date: May 07, 2010 History of Tetanus Vaccine?: Unknown Tetanus Immunization Date: Aug 03, 2005 History of Pneumococcal: Unknown History of Hepatitis B Vaccine: No Medication Reconciliation New Medications: Azithromycin (Azithromycin) 250 Mg Tab 250 MG PO QPM for 3 Days, #3 TAB Continued Medications: Apixaban (Eliquis) 2.5 Mg Tab 2.5 MG PO BID Aspirin (Aspirin Chewable) 81 Mg Chew 81 MG PO QAM, TAB Atorvastatin (Lipitor) 40 Mg Tab 40 MG PO DAILY, TAB Duloxetine Hcl (Cymbalta) 60 Mg Cap 60 MG PO DAILY, CAP Finasteride (Proscar) 5 Mg Tab 5 MG PO QAM, TAB Insulin Isophane (Human) (Humulin N Kwikpen) 100 Unit/Ml Inj 35 UNITS SQ BID Levothyroxine Sodium (Synthroid) 50 Mcg Tab 50 MCG PO QAM, TAB Lisinopril (Prinivil) 5 Mg Tab 5 MG PO QAM, TAB Magnesium Oxide (Mag-Ox) 400 Mg Tab 400 MG PO BID, TAB Metoprolol Tartrate (Lopressor) (Lopressor) 50 Mg Tab 50 MG PO BID, TAB Ofloxacin (Oph) (Ocuflox Oph Soln) 0.3 % Kin 1 DROP OPR QID Omeprazole (Prilosec) 20 Mg Capcr 20 MG PO QAM, CAP Pregabalin (Lyrica) 100 Mg Cap 100 MG PO Q8H, CAP Ranitidine Hcl (Zantac) 150 Mg Tab 150 MG PO BID, TAB Tamsulosin HCl (Tamsulosin HCl) 0.4 Mg Cap 1 CAP PO DAILY Tramadol (Ultram) 50 Mg Tab 50 MG PO BID PRN for Pain, TAB Triamcinolone Acet (Triamcinolone Acetonide) 45 Appln/15 Gm Cr 1 APPLN TOP BID PRN for PRN, GM 1 Refill Discharge Exam Pt is feeling much improved. He has had no further shaking or chills since he was admitted. He has been eating well. The MOM/senna started yesterday has helped his bowels and he would like to continue this at home. Pt denies fever, SOB, chest pain, abd pain, n/v, LE pain or swelling. Physical Exam: General Appearance: WD/WN, no apparent distress Eyes: normal inspection, sclerae normal Respiratory/Chest: normal breath sounds, no respiratory distress Cardiovascular: regular rate, rhythm, no edema Abdomen / GI: non tender, soft Extremities: no calf tenderness, no pedal edema Neurologic/Psychiatric: alert, normal mood/affect, oriented x 3 Skin: normal color, warm/dry Hospital Course 82 y/o M who was admitted on 10/26 with RUL pneumonitis RUL pneumonitis: CXR neg, noted on CT chest CURB 65 score is 2 with a BP just bordering on hypoTN on admission Question of bacterial vs viral given other family members with current viral illness, however pt does have an elevated WBC and lactic acid, will tx as bacterial given these factors Started on levaquin the ED, and was switched to azithromycin for shorter duration of tx as outpt Flu neg Blood cx neg UA neg WBC improved Recommend add probiotic as well ARF: hx of CKD III with cr 1.5-1.8 but was 1.36 05/2017 Improved to 1.3 on gentle IVF DM: home insulin as usual, SSI PRN A1c 6.3 on 10/06/17, will not repeat BS lower in AM, however pt states he is eating less here than at home D/W son who has DM and has also managed his own son as a childhood Type I DM pt They will check in the AM for the next few days and f/u if ongoing lower BS HTN/afib/CAD/hx of NE s/p stent/hx of CVA: continue home meds with hold parameters given borderline BP Continue eliquis and aspirin 81mg Hypothyroid: continue home meds ??BPH: pt takes both proscar and tamulosin, however denies hx of BPH or urinary issues Will continue for now Constipation/hemorrhoids: MOM/senna Probiotics will likely help as well Total Time Spent: Greater than 30 minutes This includes examination of the patient, discharge planning, medication reconciliation, and communication with other providers. Discharge Instructions Please refer to the electronic Patient Visit Report (Discharge Instructions) for additional information. Follow-Up Dr. Comer in 3-5 days Additional Copies To Matt Comer M.D.
== END 2017-10-28 15:35 | disposition home or self-care (01) | DRG 194 ==
LOC: C.EDB 11:56 → C.4E 16:44 → ENRESERV 17:00
PROVIDERS: ADMIT Family Medicine; ATTEND Family Medicine
DX: J18.9 Pneumonia, unspecified organism (principal); N17.9 Acute kidney failure, unspecified; E11.22 Type 2 diabetes mellitus with diabetic chronic kidney disease; I12.9 Hypertensive chronic kidney disease with stage 1 through stage 4 chronic kidney disease, or unspecified chronic kidney disease; N18.3 Chronic kidney disease, stage 3 (moderate); E03.9 Hypothyroidism, unspecified; I48.91 Unspecified atrial fibrillation; I25.10 Atherosclerotic heart disease of native coronary artery without angina pectoris; E78.5 Hyperlipidemia, unspecified; I25.2 Old myocardial infarction; Z79.01 Long term (current) use of anticoagulants; Z79.4 Long term (current) use of insulin; Z79.82 Long term (current) use of aspirin; Z79.899 Other long term (current) drug therapy; Z88.5 Allergy status to narcotic agent; Z95.5 Presence of coronary angioplasty implant and graft; Z86.73 Personal history of transient ischemic attack (TIA), and cerebral infarction without residual deficits

== ENCOUNTER → 2017-11-03 | Outpatient (CLI) | payer OTHER ==
[~2017-11-03] MED LIST changes: +AZIT-57 PO
[2017-11-03 16:37] LABS: BASO % 0.5 %; BASO ABS # 0.03 K/uL (0-0.2); EOS % 2.2 %; EOS ABS # 0.13 K/uL (0-0.5); HEMATOCRIT 45.1 % (42-52); HEMOGLOBIN 15.8 g/dL (14.0-18.0); IG# 0.04 K/uL (0.00-0.02); LYMPH % 34.6 %; LYMPH ABS # 2.09 K/uL (1.2-3.4); MEAN CELL VOLUME 88.8 fL (80-100); MEAN CORPUSCULAR HEMOGLOBIN 31.1 pg (25-34); MEAN PLATELET VOLUME 11.2 fL (7.4-10.4); MONO % 8.3 %; NEUT % 53.7 %; NEUT ABS # 3.25 K/uL (1.4-6.5); PLATELET COUNT 149 K/uL (130-400); RED CELL DISTRIBUTION WIDTH CV 14.6 % (11.5-14.5); RED CELL DISTRIBUTION WIDTH SD 47.1 fL (36.4-46.3); WHITE BLOOD COUNT 6.04 K/uL (4.8-10.8)
[2017-11-03 16:46] LABS: ALBUMIN 3.6 gm/dl (3.4-5.0); BLOOD UREA NITROGEN 21 mg/dl (7-18); CALCIUM 9.3 mg/dl (8.5-10.1); CARBON DIOXIDE 27 mmol/L (21-32); CREATININE 1.31 mg/dl (0.60-1.40); GLUCOSE 131 mg/dl (70-99); POTASSIUM 4.4 mmol/L (3.5-5.1); SODIUM 139 mmol/L (136-145); URIC ACID 6.8 mg/dl (2.6-7.2)
== END | disposition home or self-care (01) ==
LOC: C.LABBFT 15:20
PROVIDERS: ATTEND Internal Medicine
DX: M19.90 Unspecified osteoarthritis, unspecified site (principal); D69.6 Thrombocytopenia, unspecified; N18.3 Chronic kidney disease, stage 3 (moderate)

== ENCOUNTER → 2017-11-11 | Outpatient (CLI) | payer OTHER ==
[~2017-11-11] MED LIST changes: +LEVO500T19 PO; +LSN10 PO; +MAGNSUS73 PO; +METH1TAB81 PO; +POLY335019 PO; +SENN-61 PO
--- NOTE | 2017-11-11 12:21 | DIAGNOSTIC IMAGING REPORT ---
(CHEST) THORAX WITHOUT CLINICAL HISTORY: 82 years-old Male presenting with J18.9 Pneumonia [id number]. TECHNIQUE: Multidetector CT imaging of the chest was performed without the use of intravenous contrast. IV contrast: None. A dose lowering technique was used consistent with the principles of ALARA (as low as reasonably achievable). COMPARISON: 10/26/2017. CT DOSE (mGy.cm): The estimated cumulative dose is 961.93 mGy.cm. FINDINGS: Emergency Medical Service Coordinator topogram: Median sternotomy wires. On soft tissue windows, normal thyroid and thoracic inlet. No axillary, supraclavicular, or mediastinal lymphadenopathy. Evaluation of the larry limited without intravenous contrast. Atherosclerosis of the aorta. Postsurgical changes of coronary artery bypass grafting. Coronary artery, aortic valve, and mitral annular calcification. Mild left atrial enlargement. No pericardial or pleural effusion. Chronic pneumobilia. Cholecystectomy clips noted. Moderate hiatal hernia. Partially visualized right renal cyst. On lung windows, groundglass centrilobular opacities in the posterior segment of the right upper lobe persist. These have not significantly changed since the prior exam allowing for significant respiratory motion artifact, which degrades evaluation of lung parenchyma. No new nodule or infiltrate. Medialization of the right vocal fold suggested. Central airways patent. On bone windows, degenerative changes of the spine. Well-healed sternotomy. IMPRESSION: 1. Persistent centrilobular groundglass nodular opacities in the posterior segment of the right upper lobe. These have not significantly changed and remain concerning for infectious bronchiolitis. 2. Medialization of the right vocal fold suggested. This is also unchanged. This could suggest paralysis. Consider ENT consult for direct visualization. 3. Postsurgical changes of coronary artery bypass. 4. Moderate hiatal hernia. Electronically signed by: Pancho Alvarez M.D. 11/11/2017 12:20 PM Dictated Date/Time: 11/11/2017 12:15 PM
== END | disposition home or self-care (01) ==
LOC: C.CTS 12:06
PROVIDERS: ATTEND Internal Medicine
DX: J18.9 Pneumonia, unspecified organism (principal)

== ENCOUNTER 2017-11-16 10:29 | Observation (INO) | payer OTHER ==
[~2017-11-16] VITALS: Ht 172.7 cm; Wt 93.5 kg
[~2017-11-16 10:29] MED LIST changes: -LEVO500T19 PO; -LSN10 PO; -MAGNSUS73 PO; -METH1TAB81 PO; -POLY335019 PO; -SENN-61 PO
[2017-11-16 10:39] VITALS: Ht 172.7 cm; Wt 93.5 kg
[2017-11-16] MEDS ORDERED: SODIUM CHLORIDE 0.9% 1000ML 1,000 ML IV ONE (11:00)
[2017-11-16] MEDS ORDERED: PIPERACILLIN/TAZOBACTAM 4.5 GM/100ML D5W IV STA (11:00)
[2017-11-16] MEDS ORDERED: SODIUM CHLORIDE 0.9% 500ML 500 ML IV STA (11:13)
[2017-11-16] MEDS ORDERED: SODIUM CHLORIDE 0.9% 1000ML 1,000 ML IV STA (11:13)
[2017-11-16 11:29] LABS: BASO % 0.3 %; BASO ABS # 0.02 K/uL (0-0.2); EOS % 2.4 %; EOS ABS # 0.16 K/uL (0-0.5); HEMATOCRIT 46.3 % (42-52); HEMOGLOBIN 15.8 g/dL (14.0-18.0); IG# 0.02 K/uL (0.00-0.02); LYMPH % 28.2 %; LYMPH ABS # 1.85 K/uL (1.2-3.4); MEAN CELL VOLUME 89.7 fL (80-100); MEAN CORPUSCULAR HEMOGLOBIN 30.6 pg (25-34); MEAN CORPUSCULAR HGB CONC 34.1 g/dl (32-36); MEAN PLATELET VOLUME 11.5 fL (7.4-10.4); MONO % 8.1 %; MONO ABS # 0.53 K/uL (0.11-0.59); NEUT % 60.7 %; NEUT ABS # 3.99 K/uL (1.4-6.5); PLATELET COUNT 110 K/uL (130-400); RED CELL DISTRIBUTION WIDTH CV 14.7 % (11.5-14.5); RED CELL DISTRIBUTION WIDTH SD 47.5 fL (36.4-46.3); WHITE BLOOD COUNT 6.57 K/uL (4.8-10.8)
--- NOTE | 2017-11-16 11:29 | DIAGNOSTIC IMAGING REPORT ---
CHEST ONE VIEW PORTABLE CLINICAL HISTORY: Sepsis dyspnea COMPARISON STUDY: 10/26/2017 FINDINGS: Mild stable cardiomegaly. Lungs are clear. Diaphragms are smooth. Prior median sternotomy. IMPRESSION: Mild stable cardiomegaly. No acute process. The above report was generated using voice recognition software. It may contain grammatical, syntax or spelling errors. Electronically signed by: Venancio Palma M.D. 11/16/2017 11:28 AM Dictated Date/Time: 11/16/2017 11:27 AM
[2017-11-16 11:39] LABS: INR 1.1 (0.9-1.1); PTT PATIENT 31.5 SECONDS (21.0-31.0)
[2017-11-16 11:46] LABS: ALBUMIN 3.4 gm/dl (3.4-5.0); ALT/SGPT 31 U/L (12-78); AST/SGOT 16 U/L (15-37); BLOOD UREA NITROGEN 28 mg/dl (7-18); CALCIUM 8.8 mg/dl (8.5-10.1); CARBON DIOXIDE 24 mmol/L (21-32); CREATININE 1.68 mg/dl (0.60-1.40); GLUCOSE 84 mg/dl (70-99); POTASSIUM 4.5 mmol/L (3.5-5.1); SODIUM 141 mmol/L (136-145)
[2017-11-16 11:50] LABS: ALKALINE PHOSPHATASE 88 U/L (45-117); TOTAL PROTEIN 6.9 gm/dl (6.4-8.2)
--- NOTE | 2017-11-16 12:10 | DIAGNOSTIC IMAGING REPORT ---
HEAD WITHOUT CONTRAST (CT) CT DOSE: 687.98 mGy.cm HISTORY: Mental status change dizzy, hypotension TECHNIQUE: Multiaxial CT images of the head were performed without the use of intravenous contrast. A dose lowering technique was utilized adhering to the principles of ALARA. Comparison: 07/15/2017 Findings: The paranasal sinuses and mastoid air cells are clear. The calvarium and skull base are intact. The ventricles and sulci are within normal limits. There is no mass, hematoma, midline shift, or acute infarct. Moderate age-related chronic small vessel change and atrophy. Impression: No acute intracranial abnormality. Age-related change. The above report was generated using voice recognition software. It may contain grammatical, syntax or spelling errors. Electronically signed by: Venancio Palma M.D. 11/16/2017 12:09 PM Dictated Date/Time: 11/16/2017 12:08 PM
--- NOTE | 2017-11-16 12:56 | EMERGENCY ROOM VISIT NOTE ---
History Report prepared by Ivanna: Ivy Duarte Under the Supervision of: Dr. Mireya Arthur M.D. First contact with patient: 10:58 Chief Complaint: DIZZY Stated Complaint: DIZZY SEEING DOUBLE, VERY WEAK TROUBLE BREATHING History of Present Illness The patient is an 82 year old male who presents to the Emergency Room with complaints of worsening dizziness starting 3 days ago. The patient states that he is having difficulty standing and walking today. The patient complains of weakness, neck stiffness, and headache The patient denies chest pain, urinary symptoms, abnormal eating/drinking, and shortness of breath. He notes that they started him on another round of antibiotics yesterday. He notes that he is on blood thinners. Source of History: patient Onset: 3 days ago Position: other (global) Quality: other (dizziness) Timing: worsening Modifying Factors (Worsening): other (standing, walking) Associated Symptoms: + headache, + neck pain (stiffness), + weakness, No chest pain, No SOB, No urinary symptoms Note: The patient denies abnormal eating/drinking. Review of Systems See HPI for pertinent positives & negatives. A total of 10 systems reviewed and were otherwise negative. 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 Family History Diabetes mellitus Heart disease Kidney disease Kidney stones Social History Smoking Status: Never Smoker Alcohol Use: none Drug Use: none Marital Status: single Housing Status: lives with family Occupation Status: retired Current/Historical Medications Scheduled Apixaban (Eliquis), 2.5 MG PO BID Aspirin (Aspirin Chewable), 81 MG PO QAM Atorvastatin (Lipitor), 40 MG PO HS Duloxetine Hcl (Cymbalta), 60 MG PO DAILY Finasteride (Proscar), 5 MG PO QAM Insulin Isophane (Human) (Humulin N Kwikpen), 35 UNITS SQ BID Levofloxacin (Levaquin), 1 TAB PO DAILY Levothyroxine Sodium (Synthroid), 50 MCG PO QAM Lisinopril (Prinivil), 5 MG PO QAM Magnesium Hydroxide (Milk of Magnesia 400 mg/5Ml), 400 MG PO DIRECTED Magnesium Oxide (Mag-Ox), 400 MG PO BID Methylprednisolone (Medrol), 4 MG PO DIRECTED Metoprolol Tartrate (Lopressor) (Lopressor), 50 MG PO BID Ofloxacin (Oph) (Ocuflox Oph Soln), 1 DROP OPR QID Omeprazole (Prilosec), 40 MG PO QAM Polyethylene Glycol 3350 (Miralax), 17 GM PO DIRECTED Pregabalin (Lyrica), 100 MG PO Q8H Ranitidine Hcl (Zantac), 150 MG PO BID Senna (Senokot), 8.6 MG PO DAILY Tamsulosin HCl (Tamsulosin HCl), 1 CAP PO DAILY Scheduled PRN Tramadol (Ultram), 50 MG PO BID PRN for Pain Triamcinolone Acet (Triamcinolone Acetonide), 1 APPLN TOP BID PRN for PRN Allergies Coded Allergies: Oxycodone (Verified Adverse Reaction, Mild, NAUSEA/VOMITING, 11/16/17) N/V Tramadol (Unverified Adverse Reaction, Unknown, confusion, 11/16/17) Physical Exam Vital Signs Date Time Temp Pulse Resp B/P (MAP) Pulse Ox O2 Delivery O2 Flow Rate FiO2 11/16/17 13:28 Room Air 11/16/17 13:22 66 11/16/17 13:11 65 20 99 11/16/17 13:01 121/83 11/16/17 12:41 57 18 11/16/17 12:39 59 110/71 68 92/54 11/16/17 12:36 92/54 11/16/17 12:35 110/71 11/16/17 12:34 69 17 11/16/17 11:34 53 12 98 11/16/17 11:29 53 11 11/16/17 11:08 95 Room Air 11/16/17 11:05 109/64 95 Room Air 11/16/17 11:04 111/64 Room Air 11/16/17 10:59 57 16 94 Room Air 11/16/17 10:48 56 20 95/65 98 Room Air 58 110/61 60 87/49 4/22/18 10:47 87/49 11/16/17 10:46 57 11/16/17 10:45 110/61 11/16/17 10:39 36.4 56 20 83/55 96 Room Air Physical Exam Vital signs reviewed. General: Chronically ill-appearing, elderly, in no significant distress. HEENT: No scleral icterus, PERRLA, neck supple. Atraumatic. Cardiovascular: Bradycardic rate and irregular rhythm, no extra sounds. Pulmonary: Crackles at the bases bilaterally, normal work of breathing. Abdomen: Soft, nontender, nondistended, positive bowel sounds. Musculoskeletal: Atraumatic, no peripheral edema. Neurologic: Patient awake alert and oriented x 3, full strength in all 4 extremities. Cranial nerves 2 through 12 grossly intact. Skin: Warm, dry, no rash Medical Decision & Procedures ER Provider Diagnostic Interpretation: Radiology results as stated below per my review and radiologist interpretation: CHEST ONE VIEW PORTABLE CLINICAL HISTORY: Sepsis dyspnea COMPARISON STUDY: 10/26/2017 FINDINGS: Mild stable cardiomegaly. Lungs are clear. Diaphragms are smooth. Prior median sternotomy. IMPRESSION: Mild stable cardiomegaly. No acute process. The above report was generated using voice recognition software. It may contain grammatical, syntax or spelling errors. Electronically signed by: Venancio Palma M.D. 11/16/2017 11:28 AM Dictated Date/Time: 11/16/2017 11:27 AM HEAD WITHOUT CONTRAST (CT) CT DOSE: 687.98 mGy.cm HISTORY: Mental status change dizzy, hypotension TECHNIQUE: Multiaxial CT images of the head were performed without the use of intravenous contrast. A dose lowering technique was utilized adhering to the principles of ALARA. Comparison: 07/15/2017 Findings: The paranasal sinuses and mastoid air cells are clear. The calvarium and skull base are intact. The ventricles and sulci are within normal limits. There is no mass, hematoma, midline shift, or acute infarct. Moderate age-related chronic small vessel change and atrophy. Impression: No acute intracranial abnormality. Age-related change. The above report was generated using voice recognition software. It may contain grammatical, syntax or spelling errors. Electronically signed by: Venancio Palma M.D. 11/16/2017 12:09 PM Dictated Date/Time: 11/16/2017 12:08 PM Laboratory Results 11/16/17 11:03 Red Blood Count 5.16, Mean Corpuscular Volume 89.7, Mean Corpuscular Hemoglobin 30.6, Mean Corpuscular Hemoglobin Concent 34.1, Mean Platelet Volume 11.5, Neutrophils (%) (Auto) 60.7, Lymphocytes (%) (Auto) 28.2, Monocytes (%) (Auto) 8.1, Eosinophils (%) (Auto) 2.4, Basophils (%) (Auto) 0.3, Neutrophils # (Auto) 3.99, Lymphocytes # (Auto) 1.85, Monocytes # (Auto) 0.53, Eosinophils # (Auto) 0.16, Basophils # (Auto) 0.02 11/16/17 11:03 Test 11/16/17 11:03 11/16/17 11:24 White Blood Count 6.57 K/uL (4.8-10.8) Red Blood Count 5.16 M/uL (4.7-6.1) Hemoglobin 15.8 g/dL (14.0-18.0) Hematocrit 46.3 % (42-52) Mean Corpuscular Volume 89.7 fL (80-100) Mean Corpuscular Hemoglobin 30.6 pg (25-34) Mean Corpuscular Hemoglobin Concent 34.1 g/dl (32-36) Platelet Count 110 K/uL (130-400) Mean Platelet Volume 11.5 fL (7.4-10.4) Neutrophils (%) (Auto) 60.7 % Lymphocytes (%) (Auto) 28.2 % Monocytes (%) (Auto) 8.1 % Eosinophils (%) (Auto) 2.4 % Basophils (%) (Auto) 0.3 % Neutrophils # (Auto) 3.99 K/uL (1.4-6.5) Lymphocytes # (Auto) 1.85 K/uL (1.2-3.4) Monocytes # (Auto) 0.53 K/uL (0.11-0.59) Eosinophils # (Auto) 0.16 K/uL (0-0.5) Basophils # (Auto) 0.02 K/uL (0-0.2) RDW Standard Deviation 47.5 fL (36.4-46.3) RDW Coefficient of Variation 14.7 % (11.5-14.5) Immature Granulocyte % (Auto) 0.3 % Immature Granulocyte # (Auto) 0.02 K/uL (0.00-0.02) Prothrombin Time 11.4 SECONDS (9.0-12.0) Prothromb Time International Ratio 1.1 (0.9-1.1) Activated Partial Thromboplast Time 31.5 SECONDS (21.0-31.0) Partial Thromboplastin Ratio 1.2 Anion Gap 7.0 mmol/L (3-11) Estimated GFR () 43.2 Estimated GFR (Non- 37.3 BUN/Creatinine Ratio 16.6 (10-20) Calcium Level 8.8 mg/dl (8.5-10.1) Total Bilirubin 0.7 mg/dl (0.2-1) Aspartate Amino Transf (AST/SGOT) 16 U/L (15-37) Alanine Aminotransferase (ALT/SGPT) 31 U/L (12-78) Alkaline Phosphatase 88 U/L (45-117) Troponin I < 0.015 ng/ml (0-0.045) Total Protein 6.9 gm/dl (6.4-8.2) Albumin 3.4 gm/dl (3.4-5.0) Globulin 3.5 gm/dl (2.5-4.0) Albumin/Globulin Ratio 1.0 (0.9-2) Procalcitonin 0.05 ng/ml (0-0.5) Thyroid Stimulating Hormone (TSH) 1.360 uIu/ml (0.300-4.500) Bedside Lactic Acid Venous 1.19 mmol/L (0.90-1.70) Laboratory results per my review. Medications Administered Medications (Trade) Dose Ordered Sig/Oscar Route Start Time Stop Time Status Last Admin Dose Admin Piperacillin Sod/ Tazobactam Sod (Zosyn Iv) 4.5 gm NOW STAT IV 11/16/17 11:00 11/16/17 11:04 DC 11/16/17 11:24 4.5 GM Sodium Chloride 500 ml @ 999 mls/hr Q31M STAT IV 11/16/17 11:13 11/16/17 11:43 DC 11/16/17 11:22 999 MLS/HR Sodium Chloride 1,000 ml @ 125 mls/hr Q8H STAT IV 11/16/17 11:13 11/16/17 19:12 11/16/17 11:13 125 MLS/HR ECG Per My Interpretation Indication: weakness Rate (beats per minute): 63 Rhythm: atrial fibrillation Findings: other (liekly previosu inferior infarct, no acute ST changes suggestive of ischemia, QT-c 437) ED Course 1100: Ordered Zosyn Iv 4.5 gm IV, NSS 1000 ml @ 999 mls/hr IV. 1104: Past medical records reviewed. The patient was evaluated in room A2. A complete history and physical examination was performed. 1113: Ordered NSS 1000 ml @ 125 mls/hr IV, NSS 500 ml @ 999 mls/hr IV. 1233: I reevaluated the patient and he is still orthostatic. 1252: I reviewed the patient's case with Dr. Nadeen SMITH Hospitalist. He will evaluate the patient for further management. Medical Decision Differential Diagnosis: Etiologies such as benign positional vertigo, dehydration, hypovolemia, anemia, tumor, infection, hypoglycemia, electrolyte abnormalities, cardiac sources, intracerebral event, toxicologic, neurologic, as well as others were entertained. This pt was evaluated and appeared to be in no distress. IV access was obtained and lab work was drawn. Patient was placed on the net washer. He is noted to be hypotensive at triage. Patient is also orthostatic. Initially the patient's records reveal a recent hospitalization for pneumonia. Given the hypotension blood cultures and lactate were obtained, the patient was given 1 dose of IV Zosyn. Patient is in a rate controlled atrial fib however he does drop to 30 bpm occasionally. He was given 500 mL's of IV normal saline solution which did improve his orthostasis however his systolic pressure does drop to 90. The patient is on rate controlling medications as well as anticoagulants. There is no evidence of sepsis or pneumonia on workup today. Given the patient's persistent orthostasis given IV hydration, he will be evaluated by the hospitalist service for medication management and gentle hydration. Patient and son are aware of the plan and agree. Medication Reconcilliation Current Medication List: was personally reviewed by me Blood Pressure Screening Patient's blood pressure: Low blood pressure Will be further monitored by the hospitalist. Consults Time Called: 1242 Consulting Physician: Dr. Nadeen SMITH Hospitalist Returned Call: 1250 I reviewed the patient's case with Dr. Nadeen SMITH Hospitalist. He will evaluate the patient for further management. Impression Primary Impression: Bradycardia Additional Impression: Orthostasis Scribe Attestation The scribe's documentation has been prepared under my direction and personally reviewed by me in its entirety. I confirm that the note above accurately reflects all work, treatment, procedures, and medical decision making performed by me. Departure Information Dispostion Being Evaluated By Hospitalist Referrals Matt Comer M.D. (PCP) Patient Instructions My [facility] Problem Qualifiers
[2017-11-16] MEDS ORDERED: METH1TAB81 PO (13:10)
[2017-11-16] MEDS ORDERED: LEVO500T19 PO (13:10)
[2017-11-16] MEDS ORDERED: POLY335019 PO (13:10)
[2017-11-16] MEDS ORDERED: MAGNSUS73 PO (13:10)
[2017-11-16] MEDS ORDERED: SENN-61 PO (13:10)
[2017-11-16] MEDS ORDERED: MAGNESIUM HYDROXIDE SUSP 30 ML UDC PO PRN (13:30)
[2017-11-16] MEDS ORDERED: ONDANSETRON INJ 2 MG/ML 2 ML VIAL IV PRN (13:30)
[2017-11-16] MEDS ORDERED: ACETAMINOPHEN 325 MG TAB PO PRN (13:30)
[2017-11-16] MEDS ORDERED: ZOLPIDEM TARTRATE 5 MG TAB PO PRN (13:30)
[2017-11-16] MEDS ORDERED: ALUMINUM/MAGNESIUM/SIMETH (MAALOX MAX) 30 ML UDC PO PRN (13:30)
[2017-11-16] MEDS ORDERED: POLYETHYLENE (MIRALAX) 17 GM PACK PO PRN (13:30)
[2017-11-16] MEDS ORDERED: ENOXAPARIN 40 MG/0.4 ML SYR SC SCH (13:30)
--- NOTE | 2017-11-16 13:58 | History and Physical ---
History & Physical Date of Service Nov 16, 2017. History & Physical bradycardia dizziness, [id number]
[2017-11-16] MEDS ORDERED: TRAMADOL HCL 50 MG TAB PO PRN (14:00)
[2017-11-16] MEDS ORDERED: TRIAMCINOLONE ACET 0.5% CR 15 GM TUBE EXT PRN (14:00)
[2017-11-16 14:16] VITALS: BP 122/82; PULSE 52; TEMP 36.5; O2SAT 97
[2017-11-16] MEDS ORDERED: GLUCOSE 10 TABS/TUBE PO PRN (14:30)
[2017-11-16] MEDS ORDERED: GLUCAGON FOR INJ 1 MG VIAL SQ PRN (14:30)
[2017-11-16] MEDS ORDERED: GLUCOSE 40% GEL 15 GM TUBE PO PRN (14:30)
[2017-11-16] MEDS ORDERED: DEXTROSE 50% 50 ML SYR IV PRN (14:30)
[2017-11-16] MEDS: PREGABALIN 100 MG CAP PO SCH ×2 (14:33→22:24)
[2017-11-16] MEDS: SODIUM CHLORIDE 0.9% 1000ML 1,000 ML IV SCH (14:33)
[2017-11-16] MEDS ORDERED: IV FLUIDS COMPLETED PRN (14:45)
--- NOTE | 2017-11-16 14:53 | HISTORY & PHYSICAL EXAMINATION ---
DATE OF ADMISSION: 11/16/2017 This is an observation H&P, 31 minutes. CHIEF COMPLAINT: Dizziness. HISTORY OF PRESENT ILLNESS: The patient is an 82-year-old white male with a significant past medical history of abnormal EKG, AFib with rapid ventricular response, on Eliquis blood thinner, history of CAD, dyslipidemia, hypertension, chronic renal insufficiency, chronic kidney disease stage III, diabetic, GERD, hypothyroidism, history of CVA, CAD and stent, comes to the hospital Emergency Department because of the above chief complaint. The patient was recently admitted to the hospital 3 weeks ago for the treatment of pneumonia. He was discharged on 10/28/2017 after the treatment for the pneumonia, which was right upper lung pneumonia. He has been followed up with PCP 4 days ago. Feel he has generalized weakness. PCP feels he still has pneumonia, gave him antibiotics. However, he reported the antibiotic doing no good to him. Therefore, the antibiotic was discontinued by himself after 2 days oral intake. He has been feeling worsening of dizziness for 3 days. Difficult standing and walking. Reports generalized weakness, neck stiffness, and headache. The patient lives with son, Aubrey who brought him to the Emergency Room. In the Emergency Room, he was found as hypotensive and bradycardic. Blood pressure was at 83/55, heart rate was down to 30s per report from the ED physician. He got IV fluid. BP improved. When I interviewed with the patient, he is awake, alert, and orientated, conversational, follows all commands. Confirmed me the above information. Denied cough, sputum, or chest pain. Denied nausea, vomiting, abdominal pain, diarrhea, or constipation. Denied dysuria, urgency and frequencies. Denied wheezing, shortness of breath. Denied facial droop, slurry speech or local weakness. He did report dizziness getting worse when change positions and feel unstable. Denied any skipped heart beating, palpitation, or lower extremity swelling. PAST MEDICAL HISTORY: Like I mentioned in the above. ALLERGIES: ALLERGIC TO OXYCODONE, TRAMADOL. FAMILY HISTORY: Unremarkable. SOCIAL HISTORY: Never smoked. Denied alcohol abuse disorder, denied illicit drug abuse. The patient lives with family. HOME MEDICATIONS: Include Eliquis 2.5 mg p.o. b.i.d., aspirin 81 mg p.o. q.a.m., Lipitor 40 mg p.o. daily, Cymbalta 60 mg p.o. daily, Proscar 5 mg p.o. q.a.m., insulin, Humulin N 35 units subQ b.i.d., levothyroxine 50 mcg p.o. q.a.m., lisinopril 5 mg p.o. q.a.m., mag oxide 400 mg p.o. b.i.d., metoprolol 50 mg p.o. b.i.d., omeprazole 20 mg p.o. q.a.m., Lyrica 100 mg p.o. q. 8 hour, Zantac 150 mg p.o. b.i.d., tamsulosin 1 tab p.o. b.i.d., Tramadol 50 mg p.o. b.i.d. p.r.n. for the pain, triamcinolone 1 topical application p.r.n. for the itching. REVIEW OF SYSTEMS: Please see HPI, otherwise 14 points organ system review were negative. PHYSICAL EXAMINATION: VITAL SIGNS: Temperature 36.4, heart rate currently 59. Now it was 30s per ER physician report, respiratory rate was 20, blood pressure currently is 110/71, pulse ox was 96% on room air. GENERAL: The patient is a white male, ill appearing, elderly, in no significant distress, conversational, follows all commands, awake, alert and orientated. HEAD: Normocephalic. EYES: Pupils equal, round, responds to light. EARS: Normal. NOSE: Normal. NECK: Supple. Thyroid no enlargement. Trachea midline. HEART: Irregularly irregular, S1, S2, mild bradycardia. No murmurs, no gallop. LUNGS: Decreased breathing sounds, no obvious crackles. No wheezing or rhonchi. ABDOMEN: Soft, nontender. Bowel sound was positive. GENITOURINARY AND RECTAL: Deferred. Bilateral CVA was nontender. MUSCULOSKELETAL: Atraumatic. There was no obvious edema. NEUROLOGIC: Cranial nerves II-XII was intact. There were no local deficits. SKIN: Has no rashes. HEAD CT STUDIES: There was no acute intracranial abnormalities. LABORATORY STUDIES: WBC 6.5, hemoglobin 15, platelet 110. BUN 28, creatinine 1.68, which is higher than his baseline. The highest was at 1.5. Sodium 140, potassium 4.5. Blood glucose 84. MEDICATIONS: Initially, the patient got dosing which was discontinued. He got IV fluid in the Emergency Room. PT/INR was 11.1. Blood culture sent and is pending. EKG was done in the Emergency Room which was AFib with a competing junctional pacemaker with premature ventricular aberrantly conducted. Old inferior infarction. ASSESSMENT AND PLAN: An 82-year-old white male who comes to the hospital with the problems below: 1. Dizziness likely secondary to hypotensive and bradycardia. 2. Hypotensive and bradycardia, possible from medicine effects such as beta blockers he is on now. 3. Bradycardia with history of atrial fibrillation associated with dizziness. Differential diagnosis include tachybrady syndrome. 4. Hypotensive and bradycardia could also from dehydration. 5. Possible orthostatic hypotension, which could be from dehydration or medicine effects. Patient is on several medicines which could cause orthostatic hypotension. 6. Acute on chronic kidney failure stage III with BUN 28, creatinine 1.68. 7. History of coronary artery disease, stent, myocardial infarction. 8. History of atrial fibrillation, on Eliquis. 9. Dyslipidemia. 10. Hypertension. 11. Hypothyroidism. 12. Transient ischemic attack. For the above conditions, obviously, the patient's bradycardia and hypotensive, like I mentioned could be medicine effects or from dehydration, I will stop beta baldemar for now. Watch blood pressure and heart rate. Observe him in telemetry. Check cardiac enzyme troponin x2 sets more. A gentle IV fluid because obvious acute on chronic kidney failure stage III. Check EKG daily. Continue Eliquis. Cardiology consult. For other medical conditions, history of AFib with rapid ventricular response, we will continue Eliquis. For dyslipidemia, continue atorvastatin. For BPH, continue Proscar and tamsulosin. For diabetic, we will continue home dose of insulin. Check HbA1c if not recently checked and add sliding scale, continue home medicine, Request social work manager PT, OT evaluation and treatment. Discussed with the patient and son about the care plan and answered all the questions, the patient is DNR. MTDD
[2017-11-16 16:00] VITALS: O2SAT 97
--- NOTE | 2017-11-16 16:46 | ECHOCARDIOGRAM REPORT ---
*NOTICE TO RECEIVING [employer] This information is strictly Confidential and protected under [place] law. [place] law prohibits you from making any further disclosure of this information unless further disclosure is expressly permitted by the written consent of the person to whom it pertains or is authorized by law. A general authorization for the release of medical or other information is not sufficient for this purpose. Hospital accepts no responsibility if the information is made available to any other person, INCLUDING THE PATIENT. Interpretation Summary * Name: LUIS ALBERTO DIAZ Study Date: 11/16/2017 03:08 PM BP: 92/54 mmHg * Patient Location: C.2T\S\S238\S\2 HR: 66 * : 1935 (M/d/yy) Gender: Male Height: 68 in * Age: 82 yrs Ethnicity: [place] Weight: 207 lb * Ordering Physician: Keith Senior * Referring Physician: Self, Referred * Performed By: Alexa Garcia RDCS * * Reason For Study: bradycardia dizziness * BSA: 2.1 m2 * -- Conclusions -- * 1. Normal left ventricular size and systolic function. EF 60-65%. No visualized wall motion abnormalities; cannot exclude wall motion abnormalities given image quality. Severe concentric left ventricular hypertrophy. * 2. The left atrium is severely dilated. * 3. Sclerotic aortic valve without significant stenosis. * 4. Technically difficult study, somewhat enhanced with IV Definity. * 5. Compared to prior study on 09/27/2014, rhythm is now atrial fibrillation. Procedure Details * A complete two-dimensional transthoracic echocardiogram was performed (2D, M-mode, Doppler and color flow Doppler). * A contrast injection of Definity was performed to improve assessment of LV function. * Contrast was injected into an intravenous site in the right arm. * One vial of Definity ultrasound contrast was diluted in normal saline to a total volume of 10 ml. A total of '1' ml of solution was administered during imaging. * Lot # [id number] of Definity utilized for procedure. * Expiration date NOV 13. * The attending nurse who injected the contrast agent was Blas Reynoso RN. Left Ventricle * Normal left ventricular size and systolic function. EF 60-65%. No visualized wall motion abnormalities; cannot exclude wall motion abnormalities given image quality. Severe concentric left ventricular hypertrophy. Right Ventricle * The right ventricle is not well visualized. * The right ventricular systolic function is reduced as assessed by tricuspid annular plane systolic excursion (TAPSE) (TAPSE <1.6 cm). Atria * The left atrium is severely dilated. * Right atrium not well visualized. Mitral Valve * There is mild mitral annular calcification. * There is no mitral valve stenosis. * There is trace mitral regurgitation. Tricuspid Valve * The tricuspid valve is not well visualized, but is grossly normal. * There is no tricuspid stenosis. * There is trace tricuspid regurgitation. Aortic Valve * The aortic valve is trileaflet. * Sclerotic aortic valve without significant stenosis. * There is no significant aortic regurgitation. Pulmonic Valve * The pulmonary valve is inadequately visualized, but the Doppler data is adequate for interpretation. * There is no pulmonic valvular stenosis. * There is no significant pulmonary regurgitation. Great Vessels * The aortic root is normal size. * Ascending aorta of normal dimension Pericardium/Pleural * There is no pericardial effusion. Great Vessels * IVC not well visualized. MMode 2D Measurements and Calculations IVSd 1.7 cm LVIDd 3.3 cm LVIDs 2.3 cm LVPWd 1.5 cm IVS/LVPW 1.1 FS 31.1 % EDV(Teich) 43.9 ml ESV(Teich) 17.5 ml EF(Teich) 60.2 % EDV(cubed) 35.7 ml ESV(cubed) 11.7 ml EF(cubed) 67.3 % LV mass(C)d 196.5 grams LV mass(C)dI 94.7 grams/m\S\2 SV(Teich) 26.4 ml SI(Teich) 12.7 ml/m\S\2 SV(cubed) 24.0 ml SI(cubed) 11.6 ml/m\S\2 Ao root diam 3.6 cm Ao root area 9.9 cm\S\2 ACS 1.1 cm LA dimension 4.3 cm asc Aorta Diam 2.7 cm LA/Ao 1.2 LVOT diam 2.0 cm LVOT area 3.2 cm\S\2 Doppler Measurements and Calculations MV E max ngozi 116.5 cm/sec MV dec time 0.22 sec Ao V2 max 102.7 cm/sec Ao max PG 4.2 mmHg Ao max PG (full) 2.1 mmHg YON(V,A) 2.2 cm\S\2 YON(V,D) 2.2 cm\S\2 LV V1 max PG 2.1 mmHg LV V1 max 72.0 cm/sec PA V2 max 67.3 cm/sec PA max PG 1.8 mmHg PA acc slope 239.2 cm/sec\S\2 PA acc time 0.17 sec PA pr(Accel) 1.9 mmHg
[2017-11-16] MEDS ORDERED: OFLOXACIN 0.3% OP SOLN 5 ML BTL OPR SCH (17:00)
[2017-11-16] MEDS: INSULIN ASPART 100 UNITS/ML 3 ML PEN SC SCH ×2 (17:44→20:17)
[2017-11-16 19:19] VITALS: BP_SYST 119; BP_SYST 130; BP_SYST 165; BP_DIAS 72; BP_DIAS 81; BP_DIAS 91; PULSE 53; PULSE 73; TEMP 36.5; O2SAT 98
[2017-11-16 19:49] LABS: CKMB 2.5 ng/ml (0.5-3.6)
[2017-11-16 20:00] VITALS: O2SAT 98
[2017-11-16] MEDS: RANITIDINE HCL 150 MG TAB PO SCH (20:12)
[2017-11-16] MEDS: ATORVASTATIN 40 MG TAB PO SCH (20:12)
[2017-11-16] MEDS: APIXABAN 2.5 MG TAB PO SCH (20:13)
[2017-11-16] MEDS: INSULIN HUMAN NPH SQ SCH (20:23)
[2017-11-16] MEDS: MAGNESIUM OXIDE 400 MG TAB PO SCH (22:24)
[2017-11-17] VITALS (10 sets, daily range): BP systolic 132–171; BP diastolic 82–95; PULSE 56–77; TEMP 36.3–36.9; O2SAT 96–100
[2017-11-17 02:09] LABS: CKMB 2.3 ng/ml (0.5-3.6)
[2017-11-17] MEDS: SODIUM CHLORIDE 0.9% 1000ML 1,000 ML IV SCH (02:39)
[2017-11-17] MEDS: LEVOTHYROXINE 50 MCG TAB PO SCH (05:35)
[2017-11-17] MEDS: PREGABALIN 100 MG CAP PO SCH ×3 (05:35→21:05)
[2017-11-17] MEDS: INSULIN ASPART 100 UNITS/ML 3 ML PEN SC SCH ×4 (07:00→21:00)
[2017-11-17 07:39] LABS: BLOOD UREA NITROGEN 21 mg/dl (7-18); CALCIUM 8.9 mg/dl (8.5-10.1); CARBON DIOXIDE 26 mmol/L (21-32); CREATININE 1.41 mg/dl (0.60-1.40); GLUCOSE 58 mg/dl (70-99); POTASSIUM 4.3 mmol/L (3.5-5.1); SODIUM 143 mmol/L (136-145)
[2017-11-17 07:44] LABS: PHOSPHORUS 3.2 mg/dl (2.5-4.9)
[2017-11-17] MEDS: ASPIRIN 81 MG CHEW PO SCH (08:41)
[2017-11-17] MEDS: PANTOprazole SOD 40 MG TAB PO SCH (08:41)
[2017-11-17] MEDS: FINASTERIDE 5 MG TAB PO SCH (08:41)
[2017-11-17] MEDS: APIXABAN 2.5 MG TAB PO SCH ×2 (08:41→21:00)
[2017-11-17] MEDS: SENNA 8.6 MG TAB PO SCH (08:41)
[2017-11-17] MEDS: MAGNESIUM OXIDE 400 MG TAB PO SCH ×2 (08:41→21:00)
[2017-11-17] MEDS: DULOXETINE HCL 60 MG CAP PO SCH (08:42)
[2017-11-17] MEDS: INSULIN HUMAN NPH SQ SCH ×2 (08:42→21:02)
[2017-11-17] MEDS: TAMSULOSIN HCL 0.4 MG CAP PO SCH (08:42)
[2017-11-17] MEDS: RANITIDINE HCL 150 MG TAB PO SCH ×2 (08:42→21:00)
[2017-11-17] MEDS ORDERED: LISINOPRIL 5 MG TAB PO SCH (09:00)
[2017-11-17 09:30] LABS: HEMATOCRIT 43.7 % (42-52); MEAN CELL VOLUME 90.5 fL (80-100); MEAN CORPUSCULAR HEMOGLOBIN 31.1 pg (25-34); MEAN CORPUSCULAR HGB CONC 34.3 g/dl (32-36); RED CELL DISTRIBUTION WIDTH CV 14.7 % (11.5-14.5); WHITE BLOOD COUNT 6.23 K/uL (4.8-10.8)
[2017-11-17 09:51] LABS: MEAN PLATELET VOLUME 11.7 fL (7.4-10.4); PLATELET COUNT 95 K/uL (130-400)
--- NOTE | 2017-11-17 15:27 | Cardiology Consultation ---
Cardiology Consultation Date of Consultation: Nov 17, 2017. Requesting Physician: Dr. Celestin Reason for Consultation: Atrial fibrillation, Dizziness, question bradycardia History of Present Illness Mr. 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 Cardiology consult for evaluation atrial fibrillation, questionable bradycardia. Patient was previously followed by Dr. Borrego for his cardiovascular care and was last seen by me as an outpatient 5 months ago. His cardiac history is remarkable for an NSTEMI in May of 2011 where was found to have multivessel disease for which he was transferred to [facility] for bypass surgery. Since that time his cardiac care has been complicated by episodes of paroxysmal atrial fibrillation with rapid ventricular response. He has had 2 admissions for AFib with RVR both of which he converted to normal sinus rhythm spontaneously and was associated with minimal troponin elevation thought secondary to demand ischemia. More recent health remarkable for hospitalization at the beginning of this month for suspected right upper lobe pneumonia. Treated with p.o. antibiotics with improvement. Approximately 4 days ago noted new worsening dizziness, unsteadiness on his feet. Denies any recurrent fevers or chills, productive cough. Denies any chest pain. Denies any palpitations. Reports no change to his p.o. intake and denies any diarrhea, change in urinary symptoms. Due to symptoms presented to ED yesterday where was initially noted to be hypotensive to the 80s in reportedly had brief episodes on telemetry to 30s. Initial EKGs showed atrial fibrillation with heart rates in the 60s. Since admission has been treated with IV fluids initially with IV antibiotics. Repeat echocardiogram showed preserved LV function with no significant valvular dysfunction. Cardiac enzymes negative. Telemetry has shown primarily atrial fibrillation in the 60s to 70s. Had a 3.1 second pause overnight while sleeping , asymptomatic. This morning states feeling better, up walking the halls with physical therapy no other new complaints. 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 Family History Diabetes mellitus Heart disease Kidney disease Kidney stones Social History Smoking Status: Never Smoker History of Alcohol Use: No Lives with his son Aubrey Review of Systems Respiratory: + cough, + sputum, + wheezing 10 point review of systems was completed and was otherwise negative unless stated in HPI Allergies Coded Allergies: Oxycodone (Verified Adverse Reaction, Mild, NAUSEA/VOMITING, 11/16/17) N/V Tramadol (Unverified Adverse Reaction, Unknown, confusion, 11/16/17) Medications Current Inpatient Medications Medications (Trade) Dose Ordered Sig/Oscar Route Start Time Stop Time Status Last Admin Dose Admin Acetaminophen (Tylenol Tab) 650 mg Q4H PRN PO 11/16/17 13:30 12/16/17 13:29 Al Hydrox/Mg Hydrox/Simethicone (Maalox Max Susp) 15 ml Q4H PRN PO 11/16/17 13:30 12/16/17 13:29 Magnesium Hydroxide (Milk Of Magnesia Susp) 30 ml Q12H PRN PO 11/16/17 13:30 12/16/17 13:29 Zolpidem Tartrate (Ambien Tab) 5 mg HSZ PRN PO 11/16/17 13:30 12/16/17 13:29 Ondansetron HCl (Zofran Inj) 4 mg Q6H PRN IV 11/16/17 13:30 12/16/17 13:29 Polyethylene (Miralax Powder Packet) 17 gm DAILY PRN PO 11/16/17 13:30 12/16/17 13:29 Apixaban (Eliquis Tab) 2.5 mg BID PO 11/16/17 21:00 12/16/17 20:59 11/17/17 08:41 2.5 MG Aspirin (Aspirin Chew) 81 mg QAM PO 11/17/17 09:00 12/17/17 08:59 11/17/17 08:41 81 MG Atorvastatin Calcium (Lipitor Tab) 40 mg HS PO 11/16/17 21:00 12/16/17 20:59 11/16/17 20:12 40 MG Duloxetine HCl (Cymbalta Cap) 60 mg DAILY PO 11/17/17 09:00 12/17/17 08:59 11/17/17 08:42 60 MG Finasteride (Proscar Tab) 5 mg QAM PO 11/17/17 09:00 12/17/17 08:59 11/17/17 08:41 5 MG Insulin Human NPH (novoLIN-N NPH) 35 units BID SQ 11/16/17 21:00 12/16/17 20:59 11/17/17 08:42 35 UNITS Levothyroxine Sodium (Synthroid Tab) 50 mcg DAILYBB PO 11/17/17 06:00 12/17/17 05:59 11/17/17 05:35 50 MCG Magnesium Oxide (Mag-Ox Tab) 400 mg BID PO 11/16/17 21:00 12/16/17 20:59 11/17/17 08:41 400 MG Ofloxacin (Ocuflox 0.3% Oph Soln) 2 drops QID OPR 11/16/17 17:00 11/26/17 16:59 Future Hold Pregabalin (Lyrica Cap) 100 mg Q8H PO 11/16/17 14:00 12/16/17 13:59 11/17/17 14:27 100 MG Ranitidine HCl (zANTac TAB) 150 mg BID PO 11/16/17 21:00 12/16/17 20:59 11/17/17 08:42 150 MG Senna (Senokot Tab) 8.6 mg DAILY PO 11/17/17 09:00 12/17/17 08:59 11/17/17 08:41 8.6 MG Tamsulosin HCl (Flomax Cap) 0.4 mg DAILY PO 11/17/17 09:00 12/17/17 08:59 11/17/17 08:42 0.4 MG Tramadol HCl (Ultram Tab) 50 mg BID PRN PO 11/16/17 14:00 12/16/17 13:59 Triamcinolone Acetonide (Kenalog 0.5% Crm) 1 appln BID PRN EXT 11/16/17 14:00 12/16/17 13:59 Insulin Aspart (novoLOG ASPART) SLIDING SCALE G... ACHS SC 11/16/17 16:00 12/16/17 15:59 11/17/17 13:11 1 UNITS Pantoprazole Sodium (Protonix Tab) 40 mg QAM PO 11/17/17 09:00 11/20/17 09:01 11/17/17 08:41 40 MG Glucose (Glucose 40% Gel) 15-30 GRAMS 15 GRAMS... UD PRN PO 11/16/17 14:30 12/16/17 14:29 Glucose (Glucose Chew Tab) 4-8 Tablets 4 Tabl... UD PRN PO 11/16/17 14:30 12/16/17 14:29 Dextrose (Dextrose 50% 50ML Syringe) 25-50ML OF 50% DW IV FOR... UD PRN IV 11/16/17 14:30 12/16/17 14:29 Glucagon (Glucagon Inj) 1 mg UD PRN SQ 11/16/17 14:30 12/16/17 14:29 Miscellaneous (Iv Fluids Completed) 1 ea PRN PRN N/A 11/16/17 14:45 11/16/18 14:44 Lisinopril (Zestril Tab) 10 mg QAM PO 11/18/17 09:00 12/17/17 08:59 Physical Exam Vital Signs Past 12 Hours Date Time Temp Pulse Resp B/P (MAP) Pulse Ox O2 Delivery O2 Flow Rate FiO2 11/17/17 12:00 97 Room Air 11/17/17 10:55 36.5 77 20 157/89 (111) 100 Room Air 11/17/17 08:00 97 Room Air 11/17/17 07:14 36.3 61 18 142/94 (110) 98 Room Air 11/17/17 04:00 97 Room Air 11/17/17 03:58 36.9 56 18 151/91 (111) 97 2.0 65 141/82 (101) 67 132/82 (99) General: Comfortable, no acute distress Eyes: Sclerae anicteric, extraocular movements intact HENT: Oropharynx clear mucous membranes moist Neck: Normal carotid upstrokes, no bruits. No JVD. Lungs: Clear to auscultation bilaterally, no rhonchi or wheezes Cardiac: Irregularly irregular, no murmurs, rubs or gallops. Vascular: 2+ radial, distal lower extremities cool, diminished pulses. No varicosities. Abdomen: Soft, nontender, nondistended, positive bowel sounds. Extremities: Well perfused, no peripheral edema Skin: No rashes or lesions. Neuro: Decrease in station in left lower extremity Psych: Alert, normal affect and mood Data Laboratory Results: Last 24 Hours Test 11/16/17 16:14 11/16/17 18:00 11/16/17 19:17 11/16/17 20:09 Bedside Glucose 103 mg/dl 104 mg/dl Urine Color YELLOW Urine Appearance CLEAR Urine pH 5.5 Urine Specific [place] 1.017 Urine Protein NEG Urine Glucose (UA) NEG Urine Ketones NEG Urine Occult Blood NEG Urine Nitrite NEG Urine Bilirubin NEG Urine Urobilinogen NEG Urine Leukocyte Esterase NEG Urine WBC (Auto) 0 /hpf Urine RBC (Auto) 0-4 /hpf Urine Hyaline Casts (Auto) 0 /lpf Urine Epithelial Cells (Auto) 0-5 /lpf Urine Bacteria (Auto) NEG Creatine Kinase MB 2.5 ng/ml Creatine Kinase MB Ratio Troponin I < 0.015 ng/ml Test 11/17/17 01:27 11/17/17 06:43 11/17/17 08:06 11/17/17 11:06 Creatine Kinase MB 2.3 ng/ml 2.0 ng/ml Creatine Kinase MB Ratio Troponin I < 0.015 ng/ml < 0.015 ng/ml White Blood Count 6.23 K/uL Red Blood Count 4.83 M/uL Hemoglobin 15.0 g/dL Hematocrit 43.7 % Mean Corpuscular Volume 90.5 fL Mean Corpuscular Hemoglobin 31.1 pg Mean Corpuscular Hemoglobin Concent 34.3 g/dl RDW Standard Deviation 49.0 fL RDW Coefficient of Variation 14.7 % Platelet Count 95 K/uL Mean Platelet Volume 11.7 fL Platelet Estimate DECREASED Sodium Level 143 mmol/L Potassium Level 4.3 mmol/L Chloride Level 112 mmol/L Carbon Dioxide Level 26 mmol/L Anion Gap 6.0 mmol/L Blood Urea Nitrogen 21 mg/dl Creatinine 1.41 mg/dl Estimated GFR () 53.4 Estimated GFR (Non- 46.1 BUN/Creatinine Ratio 14.7 Random Glucose 58 mg/dl Calcium Level 8.9 mg/dl Phosphorus Level 3.2 mg/dl Magnesium Level 2.1 mg/dl Bedside Glucose 111 mg/dl 127 mg/dl Imaging: Chest x-ray--no acute cardiopulmonary process Head CT--no acute intracranial process EKG: Atrial fibrillation, heart rate in the 60s, questionable old inferior infarct. No dynamic ST changes. Telemetry reviewed: Heart rate in the 60s to 80s, atrial fibrillation, 1 pause of 3.1 seconds at 0042 last night ECHO: Preserved LV function, severe LVH, aortic valve sclerosis Assessment & Plan 1. Dizziness 2. Orthostasis/dehydration 3. Paroxysmal atrial fibrillation 4. Asymptomatic bradycardia, pause to 3.1 seconds, 5. Coronary artery disease status post three-vessel CABG in 2011 6. Hypertension 7. Acute on chronic kidney disease 8. Thrombocytopenia Mr. Martinez is here with 4 days of dizziness in the setting relative hypotension on presentation in the setting of orthostasis/NAVEED. Reportedly noted to have heart rates to the 30s on initial presentation although no telemetry strips available for review. Telemetry on floor reviewed and has shown atrial fibrillation with well controlled rates and only 1 brief pause while sleeping. At this point do not feel that bradycardia is a significant component to his presenting symptoms. In addition no evidence of new cardiac dysfunction or cardiac ischemia on workup thus far. Has received IV fluids with improvement in symptoms and renal function. Going forward agree with continuing to hold his current metoprolol, monitoring on telemetry. Assuming telemetry unremarkable overnight could likely be discharged tomorrow off beta-baldemar. Otherwise would continue on current outpatient cardiac regimen including apixaban, aspirin, statin. No other cardiac testing indicated at this time. Will continue to follow up. Thank you for consultation. Please contact with questions.
--- NOTE | 2017-11-17 15:38 | Hospitalist Progress Note ---
Hospitalist Progress Note Date of Service Nov 17, 2017. Subjective Pt evaluation today including: conversation w/ patient, conversation w/ family (son on phone), physical exam, chart review, lab review, review of inpatient medication list Pain: None PO Intake: Tolerating PO diet Voiding: no voiding problems Patient reports feeling well. He denies any dizziness today. He was up with physical therapy without any dizziness. He is no longer hypotensive. He denies any complaints currently. The patient denies fevers, chills, sweats, chest pain, palpitations, claudication, cough, wheezing, shortness of breath, nausea, vomiting, abdominal pain, dysuria, hematuria, urinary retention, paralysis, weakness, numbness and tingling. Additional Comments: See HPI for pertinent positives and negatives. All other systems reviewed and negative. Objective Vital Signs Date Time Temp Pulse Resp B/P (MAP) Pulse Ox O2 Delivery O2 Flow Rate FiO2 11/17/17 12:00 97 Room Air 11/17/17 10:55 36.5 77 20 157/89 (111) 100 Room Air 11/17/17 08:00 97 Room Air 11/17/17 07:14 36.3 61 18 142/94 (110) 98 Room Air 11/17/17 04:00 97 Room Air 11/17/17 03:58 36.9 56 18 151/91 (111) 97 2.0 65 141/82 (101) 67 132/82 (99) 11/17/17 00:03 36.4 60 16 145/85 (105) 96 11/17/17 00:01 96 Room Air 11/16/17 20:00 98 Room Air 11/16/17 19:19 36.5 53 18 165/91 (115) 98 Room Air 53 130/72 (91) 73 119/81 (94) 11/16/17 16:00 97 Room Air Physical Exam Notes: General appearance: Well-developed, well-nourished, no apparent distress Head: Normocephalic, atraumatic Eyes: Normal inspection, PERRL, EOMI ENT: Normal ENT inspection, hearing grossly normal, pharynx normal Neck: Supple, no JVD, trachea midline Respiratory/Chest: +Decreased breath sounds. Lungs clear to auscultation, no respiratory distress Cardiovascular: +Irregularly irregular, rate controlled. No gallop, no murmur Abdomen/GI: Normal bowel sounds, non-tender, soft Extremities/Musculoskeletal: Normal inspection, no calf tenderness, no pedal edema Neurological/Psych: Alert, normal mood/affect, oriented x 3 Skin: Normal color, warm/dry, no rash Laboratory Results Last 24 Hours Test 11/16/17 16:14 11/16/17 18:00 11/16/17 19:17 11/16/17 20:09 Bedside Glucose 103 mg/dl 104 mg/dl Urine Color YELLOW Urine Appearance CLEAR Urine pH 5.5 Urine Specific [place] 1.017 Urine Protein NEG Urine Glucose (UA) NEG Urine Ketones NEG Urine Occult Blood NEG Urine Nitrite NEG Urine Bilirubin NEG Urine Urobilinogen NEG Urine Leukocyte Esterase NEG Urine WBC (Auto) 0 /hpf Urine RBC (Auto) 0-4 /hpf Urine Hyaline Casts (Auto) 0 /lpf Urine Epithelial Cells (Auto) 0-5 /lpf Urine Bacteria (Auto) NEG Creatine Kinase MB 2.5 ng/ml Creatine Kinase MB Ratio Troponin I < 0.015 ng/ml Test 11/17/17 01:27 11/17/17 06:43 11/17/17 08:06 11/17/17 11:06 Creatine Kinase MB 2.3 ng/ml 2.0 ng/ml Creatine Kinase MB Ratio Troponin I < 0.015 ng/ml < 0.015 ng/ml White Blood Count 6.23 K/uL Red Blood Count 4.83 M/uL Hemoglobin 15.0 g/dL Hematocrit 43.7 % Mean Corpuscular Volume 90.5 fL Mean Corpuscular Hemoglobin 31.1 pg Mean Corpuscular Hemoglobin Concent 34.3 g/dl RDW Standard Deviation 49.0 fL RDW Coefficient of Variation 14.7 % Platelet Count 95 K/uL Mean Platelet Volume 11.7 fL Platelet Estimate DECREASED Sodium Level 143 mmol/L Potassium Level 4.3 mmol/L Chloride Level 112 mmol/L Carbon Dioxide Level 26 mmol/L Anion Gap 6.0 mmol/L Blood Urea Nitrogen 21 mg/dl Creatinine 1.41 mg/dl Estimated GFR () 53.4 Estimated GFR (Non- 46.1 BUN/Creatinine Ratio 14.7 Random Glucose 58 mg/dl Calcium Level 8.9 mg/dl Phosphorus Level 3.2 mg/dl Magnesium Level 2.1 mg/dl Bedside Glucose 111 mg/dl 127 mg/dl Assessment and Plan 82 y/o male with a history o f CAD, h/o AR s/p stent and CABG, h/o CVA, HTN, HLD , a-fib, DM II w/neuropathy, hypothyroidism, CKD stage III, thrombocytopenia, BPH, and GERD who presents with dizziness, bradycardia and hypotension Dizziness, hypotension, bradycardia--improving -Admit to telemetry for observation. No acute events overnight. Pt in a-fib with HR in 50s-60s. -Troponin negative x 3 -EKG no ischemic changes -TSH WNL -Dizziness and hypotension resolved today -May be due to dehydration given recent PNA? BUN and creatinine elevated on admission, improved now after IVF -Flomax, metoprolol could also contribute. -Metoprolol held -Orthostatic but not hypotensive -Cardiology consulted, appreciate recs: Will continue to monitor on tele one more night, if no events could likely discharge tomorrow. NAVEED on CKD stage III--improving -Baseline creatinine around 1.3 -Creatinine 1.41 on 11/17, down from 1.68 s/p IVF CAD, h/o AR s/p stent and CABG, h/o CVA, HTN, HLD--stable -Hypotension resolved, now hypertensive -Lisinopril increased to 10 mg PO qd as metoprolol held -Continue ASA, lisinopril as above, Lipitor 40 mg PO qd A-fib--stable, rate controlled -Continue Eliquis 2.5 mg PO BID DM II w/neuropathy--HgbA1c 6.3 on 10/06/17 -NPH 35 units SC BID -Insulin sliding scale -Check BSGs q ac and qhs -Continue Cymbalta 60 mg PO qd Hypothyroidism -TSH WNL this admission -Continue Synthroid 50 mcg PO qd Thrombocytopenia--stable -Sees Dr. Rouse BPH -Continue Proscar 5 mg PO and Flomax 0.4 mg PO qd DVT prophylaxis -Eliquis Code Status -Level V, DO NOT RESUSCITATE
[2017-11-17] MEDS: ATORVASTATIN 40 MG TAB PO SCH (21:00)
[2017-11-18] VITALS (9 sets, daily range): BP systolic 112–174; BP diastolic 68–96; PULSE 56–73; TEMP 36.3–36.9; O2SAT 95–98
[2017-11-18] MEDS: PREGABALIN 100 MG CAP PO SCH ×2 (05:38→12:57)
[2017-11-18] MEDS: LEVOTHYROXINE 50 MCG TAB PO SCH (05:38)
[2017-11-18] MEDS: INSULIN ASPART 100 UNITS/ML 3 ML PEN SC SCH ×2 (07:00→13:00)
[2017-11-18 07:22] LABS: HEMATOCRIT 44.5 % (42-52); HEMOGLOBIN 15.3 g/dL (14.0-18.0); MEAN CORPUSCULAR HEMOGLOBIN 30.6 pg (25-34); MEAN CORPUSCULAR HGB CONC 34.4 g/dl (32-36); RED CELL DISTRIBUTION WIDTH CV 14.4 % (11.5-14.5); RED CELL DISTRIBUTION WIDTH SD 46.9 fL (36.4-46.3); WHITE BLOOD COUNT 5.82 K/uL (4.8-10.8)
[2017-11-18 07:33] LABS: MEAN PLATELET VOLUME 11.5 fL (7.4-10.4); PLATELET COUNT 89 K/uL (130-400)
[2017-11-18 07:57] LABS: CALCIUM 8.7 mg/dl (8.5-10.1); CREATININE 1.31 mg/dl (0.60-1.40); POTASSIUM 4.2 mmol/L (3.5-5.1)
[2017-11-18] MEDS: FINASTERIDE 5 MG TAB PO SCH (08:22)
[2017-11-18] MEDS: SENNA 8.6 MG TAB PO SCH (08:22)
[2017-11-18] MEDS: ASPIRIN 81 MG CHEW PO SCH (08:23)
[2017-11-18] MEDS: MAGNESIUM OXIDE 400 MG TAB PO SCH (08:23)
[2017-11-18] MEDS: TAMSULOSIN HCL 0.4 MG CAP PO SCH (08:23)
[2017-11-18] MEDS: RANITIDINE HCL 150 MG TAB PO SCH (08:23)
[2017-11-18] MEDS: DULOXETINE HCL 60 MG CAP PO SCH (08:23)
[2017-11-18] MEDS: PANTOprazole SOD 40 MG TAB PO SCH (08:23)
[2017-11-18] MEDS: APIXABAN 2.5 MG TAB PO SCH (08:24)
[2017-11-18] MEDS: INSULIN HUMAN NPH SQ SCH (08:31)
[2017-11-18] MEDS ORDERED: LISINOPRIL 10 MG TAB PO SCH (09:00)
[2017-11-18] MEDS ORDERED: LSN10 PO (12:44)
--- NOTE | 2017-11-18 12:44 | Discharge Instructions ---
Discharge Instructions Date of Service Nov 18, 2017. Admission Reason for Admission: Bradycardia Dizziness Discharge Discharge Diagnosis / Problem: dizziness, bradycardia and hypotension Discharge Goals Goal(s): Decrease discomfort, Improve function, Increase independence, Improve disease control, Improve nutritional status, Learn about illness, Diagnostic testing, Therapeutic intervention, Prevent Disease Progression, Specific goals Activity Recommendations Activity Limitations: as noted below . Instructions / Follow-Up Instructions / Follow-Up you was having Dizziness, hypotension, bradycardia, which are resolved you have NAVEED on CKD stage III which is better your Metoprolol is stopped I increased you lisinopril from 5 mg to 10 mg oral daily, you need to check Blood pressure twice daily, bring the number to be checked by PCP in 1 week, PCP may adjust your blood pressure medicine you have Thrombocytopenia, please continue to see Dr. Rouse - you need to follow up with your primary care physician in 1 week, need to check about renal function with pcp and adjust Blood pressure medicine - take medication as instructed, never overdose or any misuse, or take with alcohol, because misuse of medicine may cause organ damage or , call your primary care physician if have questions of medicaitons. - call your primary care physician OR go to local emergency room if has any fever/chill, chest pain, shortness of breathing, nausea/vomiting/abdominal pain , facial droop/slurry speech/local weakness, or if has any questions. - fall precaution - diet as instructed - you need to follow up with your subspecialist, such as mental telepathist , which is scheduled - you should understand that it is important to follow up the above instruction , and "not following the above instruction" may cause delayed or missed care of your medical conditions which may cause permanent organ damage and even . Current Hospital Diet Patient's current hospital diet: Diabetes Type 2 Diet Discharge Diet Recommended Diet: Diabetes Type 2 Diet Procedures Procedures Performed: no Pending Studies Studies pending at discharge: no Laboratory Results Hemoglobin A1c Test 10/06/17 15:53 Range/Units Estimated Average Glucose 134 mg/dl Hemoglobin A1c 6.3 H 4.5-5.6 % Medical Emergencies . Who to Call and When: Medical Emergencies: If at any time you feel your situation is an emergency, please call 911 immediately. . Non-Emergent Contact Non-Emergency issues call your: Primary Care Provider, Transformation Consultant . . "Provider Documentation" section prepared by Keith Senior. .
--- NOTE | 2017-11-18 15:17 | Discharge Summary ---
Discharge Summary Date of Service Nov 18, 2017. Discharge Summary Admission Date: Nov 16, 2017 at 13:32 Discharge Date: Nov 18, 2017 Discharge Disposition: Home Principal Diagnosis: Dizziness, hypotension, bradycardia Problems/Secondary Diagnoses: 82 y/o male admitted to hospital because of with dizziness, bradycardia and hypotension Past medical history o f CAD, h/o TX s/p stent and CABG, h/o CVA, HTN, HLD, a- fib, DM II w/neuropathy, hypothyroidism, CKD stage III, thrombocytopenia, BPH, and GERD Dizziness, hypotension, bradycardia- NAVEED on CKD stage III--improving A-fib--stable, rate controlled CAD, h/o TX s/p stent and CABG, h/o CVA, HTN, HLD--stable Bowel condition improving a stable, continue telemetry , appreciate cardiology input, continue to have metoprolol held, Orthostatic but not hypotensive continue to monitor on tele one more night, if no events could likely discharge tomorrow. Continue Eliquis 2.5 mg PO BID Controlled DM II w/neuropathy, HgbA1c 6.3 on 10/06/17, continue NPH 35 units SC BID, with insulin sliding scale Hypothyroidism, TSH WNL this admission, Continue Synthroid 50 mcg PO qd Thrombocytopenia, stable, Sees Dr. Rouse BPH, -Continue Proscar 5 mg PO and Flomax 0.4 mg PO qd DVT prophylaxis, Eliquis DO NOT RESUSCITATE Immunizations: Have You Had Influenza Vaccine: No Influenza Vaccine Date: May 07, 2010 History of Tetanus Vaccine?: Unknown Tetanus Immunization Date: Aug 03, 2005 History of Pneumococcal: Unknown History of Hepatitis B Vaccine: No Procedures: No Consultations: Parks Recreation Coordinator Medication Reconciliation New Medications: Lisinopril (Zestril) 10 Mg Tab 10 MG PO QAM for 30 Days, #30 TAB Continued Medications: Apixaban (Eliquis) 2.5 Mg Tab 2.5 MG PO BID Aspirin (Aspirin Chewable) 81 Mg Chew 81 MG PO QAM, TAB Atorvastatin (Lipitor) 40 Mg Tab 40 MG PO HS, TAB Duloxetine Hcl (Cymbalta) 60 Mg Cap 60 MG PO DAILY, CAP Finasteride (Proscar) 5 Mg Tab 5 MG PO QAM, TAB Insulin Isophane (Human) (Humulin N Kwikpen) 100 Unit/Ml Inj 35 UNITS SQ BID Levothyroxine Sodium (Synthroid) 50 Mcg Tab 50 MCG PO QAM, TAB Lisinopril (Prinivil) 5 Mg Tab 5 MG PO QAM, TAB Magnesium Hydroxide (Milk of Magnesia 400 mg/5Ml) 1 Arlin Arlin 400 MG PO DIRECTED Magnesium Oxide (Mag-Ox) 400 Mg Tab 400 MG PO BID, TAB Ofloxacin (Oph) (Ocuflox Oph Soln) 0.3 % Kin 1 DROP OPR QID Omeprazole (Prilosec) 20 Mg Capcr 40 MG PO QAM, CAP Polyethylene Glycol 3350 (Miralax) 1 Pow Pow 17 GM PO DIRECTED Pregabalin (Lyrica) 100 Mg Cap 100 MG PO Q8H, CAP Ranitidine Hcl (Zantac) 150 Mg Tab 150 MG PO BID, TAB Senna (Senokot) 8.6 Mg Tab 8.6 MG PO DAILY Tamsulosin HCl (Tamsulosin HCl) 0.4 Mg Cap 1 CAP PO DAILY Tramadol (Ultram) 50 Mg Tab 50 MG PO BID PRN for Pain, TAB Triamcinolone Acet (Triamcinolone Acetonide) 45 Appln/15 Gm Cr 1 APPLN TOP BID PRN for PRN, GM 1 Refill Discontinued Medications: Levofloxacin (Levaquin) 500 Mg Tab 1 TAB PO DAILY for 10 Days, #10 TAB Methylprednisolone (Medrol) 4 Mg Tab 4 MG PO DIRECTED Metoprolol Tartrate (Lopressor) (Lopressor) 50 Mg Tab 50 MG PO BID, TAB Discharge Exam Sitting in chair, conversational, denied dizziness, has no problem in a walking, Review of Systems: Constitutional: No fever, No chills, No sweats, No weight loss, No weakness , No fatigue, No problem reported Eyes: No worsening of vision, No eye pain, No redness, No discharge, No diplopia, No problem reported ENT: No hearing loss, No unusual epistaxis, No nasal symptoms, No sore throat, No tinnitus, No dental problems, No trouble swallowing, No problem reported Respiratory: No cough, No sputum, No wheezing, No shortness of breath, No dyspnea on exertion, No dyspnea at rest, No hemoptysis, No problem reported Abdomen: No pain, No nausea, No vomiting, No diarrhea, No constipation, No GI bleeding, No problem reported Musculoskeletal: No joint pain, No muscle pain, No swelling, No calf pain, No problem reported Genitourinary - Male: No hematuria, No dysuria, No urinary frequency, No urinary urgency, No urinary hesitancy, No urinary retention, No urinary incontinence, No penile discharge, No lesions, No impotence, No problem reported Neurologic: No memory loss, No paralysis, No weakness, No numbness/tingling , No vertigo, No balance problems, No problem reported Psychiatric: No depression symptoms, No anhedonism, No anxiety, No insomnia , No substance abuse, No problem reported Endocrine: No fatigue, No excessive thirst, No excessive urination, No problem reported Hematologic / Lymphatic: No abnormal bleeding/bruising, No clotting problems , No swollen lymph nodes, No night sweats, No problem reported Integumentary: No rash, No itch, No new/changing skin lesions, No color change, No bleeding, No problem reported Physical Exam: General Appearance: WD/WN, no apparent distress Eyes: EOMI ENT: normal ENT inspection Neck: supple, no adenopathy, thyroid normal Respiratory/Chest: chest non-tender, no respiratory distress, no accessory muscle use, + decreased breath sounds Cardiovascular: regular rate, rhythm, no edema, no gallop, no JVD Abdomen / GI: normal bowel sounds, non tender, soft, no organomegaly Extremities: normal inspection, no calf tenderness, normal capillary refill , no pedal edema Neurologic/Psychiatric: 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 as tested, no motor/sensory deficits , alert, normal mood/affect, normal reflexes Skin: normal color, warm/dry Hospital Course 82 y/o male admitted to hospital because of with dizziness, bradycardia and hypotension Past medical history o f CAD, h/o TX s/p stent and CABG, h/o CVA, HTN, HLD, a- fib, DM II w/neuropathy, hypothyroidism, CKD stage III, thrombocytopenia, BPH, and GERD Dizziness, hypotension, totally resolved, bradycardia better NAVEED on CKD stage III--improving A-fib--stable, rate controlled CAD, h/o TX s/p stent and CABG, h/o CVA, HTN, HLD--stable the above condition improving a stable, check together with standing staff, there was no any events in the ekg monitor tech, appreciate cardiology input, continue to have metoprolol held, Continue Eliquis 2.5 mg PO BID Controlled DM II w/neuropathy, HgbA1c 6.3 on 10/06/17, continue NPH 35 units SC BID, with insulin sliding scale Accelerated hypertension, blood pressure elevated after stop of the beta-baldemar , has increased lisinopril from 5-10, recommend continue to induce higher dose, adjust with PCP if needed Hypothyroidism, TSH WNL this admission, Continue Synthroid 50 mcg PO qd Thrombocytopenia, stable, Sees Dr. Rouse, will continue for BPH, -Continue Proscar 5 mg PO and Flomax 0.4 mg PO qd DVT prophylaxis, Eliquis DO NOT RESUSCITATE Instructions / Follow-Up you was having Dizziness, hypotension, bradycardia, which are resolved you have NAVEED on CKD stage III which is better your Metoprolol is stopped I increased you lisinopril from 5 mg to 10 mg oral daily, you need to check Blood pressure twice daily, bring the number to be checked by PCP in 1 week, PCP may adjust your blood pressure medicine you have Thrombocytopenia, please continue to see Dr. Rouse - you need to follow up with your primary care physician in 1 week, need to check about renal function with pcp and adjust Blood pressure medicine - take medication as instructed, never overdose or any misuse, or take with alcohol, because misuse of medicine may cause organ damage or , call your primary care physician if have questions of medicaitons. - call your primary care physician OR go to local emergency room if has any fever/chill, chest pain, shortness of breathing, nausea/vomiting/abdominal pain , facial droop/slurry speech/local weakness, or if has any questions. - fall precaution - diet as instructed - you need to follow up with your subspecialist, such as alligator hunter , which is scheduled - you should understand that it is important to follow up the above instruction , and "not following the above instruction" may cause delayed or missed care of your medical conditions which may cause permanent organ damage and even . Total Time Spent: Greater than 30 minutes This includes examination of the patient, discharge planning, medication reconciliation, and communication with other providers. Discharge Instructions Please refer to the electronic Patient Visit Report (Discharge Instructions) for additional information. Additional Copies To Matt Comer M.D.; Matt Montana MD; Price Rouse MD
== END 2017-11-18 14:33 | disposition home health service (06) ==
LOC: C.EDB 10:30 → C.2T 13:32 → ENRESERV 13:43
PROVIDERS: ADMIT Hospitalist; ATTEND Hospitalist
DX: R42 Dizziness and giddiness (principal); I95.9 Hypotension, unspecified; R00.1 Bradycardia, unspecified; I25.10 Atherosclerotic heart disease of native coronary artery without angina pectoris; I25.2 Old myocardial infarction; Z95.1 Presence of aortocoronary bypass graft; I12.9 Hypertensive chronic kidney disease with stage 1 through stage 4 chronic kidney disease, or unspecified chronic kidney disease; Z86.73 Personal history of transient ischemic attack (TIA), and cerebral infarction without residual deficits; E78.5 Hyperlipidemia, unspecified; I48.91 Unspecified atrial fibrillation; E11.22 Type 2 diabetes mellitus with diabetic chronic kidney disease; E03.9 Hypothyroidism, unspecified; N18.3 Chronic kidney disease, stage 3 (moderate); N40.0 Benign prostatic hyperplasia without lower urinary tract symptoms; K21.9 Gastro-esophageal reflux disease without esophagitis; Z88.5 Allergy status to narcotic agent; Z79.01 Long term (current) use of anticoagulants; Z79.82 Long term (current) use of aspirin; Z79.899 Other long term (current) drug therapy; Z79.4 Long term (current) use of insulin; Z83.3 Family history of diabetes mellitus; Z82.49 Family history of ischemic heart disease and other diseases of the circulatory system; Z84.1 Family history of disorders of kidney and ureter

== ENCOUNTER 2017-11-21 10:30 | Emergency (ER) | payer OTHER ==
[~2017-11-21] VITALS: Ht 172.7 cm; Wt 92.8 kg
[~2017-11-21 10:30] MED LIST changes: -AZIT-57 PO; +LSN10 PO; +MAGNSUS73 PO; -METO50TA16 PO; +POLY335019 PO; +SENN-61 PO
[2017-11-21 10:34] VITALS: TEMP 36.4; Ht 172.7 cm; Wt 92.8 kg
[2017-11-21] MEDS ORDERED: SODIUM CHLORIDE 0.9% 250ML 250 ML IV STA (10:56)
--- NOTE | 2017-11-21 11:26 | DIAGNOSTIC IMAGING REPORT ---
CHEST ONE VIEW PORTABLE HISTORY: 82 years-old Male ABDOMINAL PAIN/GI acute generalized abdominal pain with atypical chest pain COMPARISON: Chest radiograph 11/16/2017, chest CT 11/11/2017 TECHNIQUE: Portable AP view of the chest FINDINGS: Cardiac silhouette is enlarged, unchanged. Prior median sternotomy. Atherosclerosis of the aorta. No pneumothorax, pleural effusion, or overt pulmonary edema. Reticular nodular opacities of the right lung base persist. No lobar airspace consolidation. Bones of the chest appear grossly intact. Degenerative changes are noted within the shoulders and spine. Prior cholecystectomy. IMPRESSION: 1. Persistent subsegmental reticular nodular opacities of the right lung base suggest infectious or inflammatory pneumonitis. 2. Cardiomegaly without overt pulmonary edema. The above report was generated using voice recognition software. It may contain grammatical, syntax or spelling errors. Electronically signed by: Mason Cisneros M.D. 11/21/2017 11:25 AM Dictated Date/Time: 11/21/2017 11:23 AM
[2017-11-21 11:45] LABS: ALBUMIN 3.9 gm/dl (3.4-5.0); ALT/SGPT 35 U/L (12-78); AST/SGOT 20 U/L (15-37); BLOOD UREA NITROGEN 17 mg/dl (7-18); CALCIUM 9.5 mg/dl (8.5-10.1); CARBON DIOXIDE 26 mmol/L (21-32); GLUCOSE 97 mg/dl (70-99); LIPASE 83 U/L (73-393); POTASSIUM 4.3 mmol/L (3.5-5.1); SODIUM 140 mmol/L (136-145)
[2017-11-21 11:51] LABS: ALKALINE PHOSPHATASE 90 U/L (45-117); HEMATOCRIT 48.3 % (42-52); HEMOGLOBIN 17.1 g/dL (14.0-18.0); MEAN CELL VOLUME 89.1 fL (80-100); MEAN CORPUSCULAR HEMOGLOBIN 31.5 pg (25-34); MEAN CORPUSCULAR HGB CONC 35.4 g/dl (32-36); MEAN PLATELET VOLUME 12.5 fL (7.4-10.4); PLATELET COUNT 86 K/uL (130-400); RED CELL DISTRIBUTION WIDTH CV 14.6 % (11.5-14.5); RED CELL DISTRIBUTION WIDTH SD 47.1 fL (36.4-46.3); TOTAL PROTEIN 7.7 gm/dl (6.4-8.2); WHITE BLOOD COUNT 7.41 K/uL (4.8-10.8)
[2017-11-21 11:52] LABS: BASO % 0.3 %; BASO ABS # 0.02 K/uL (0-0.2); EOS % 1.1 %; EOS ABS # 0.08 K/uL (0-0.5); IG# 0.03 K/uL (0.00-0.02); LYMPH % 19.6 %; LYMPH ABS # 1.45 K/uL (1.2-3.4); MONO % 6.6 %; MONO ABS # 0.49 K/uL (0.11-0.59); NEUT ABS # 5.34 K/uL (1.4-6.5)
[2017-11-21] MEDS ORDERED: SODIUM CHLORIDE 0.9% 1000ML 1,000 ML IV STA (12:06)
--- NOTE | 2017-11-21 12:09 | DIAGNOSTIC IMAGING REPORT ---
ABDOMEN AND PELVIS CT WITHOUT CONTRAST CT DOSE: 612.15 mGy.cm HISTORY: Acute generalized abdominal pain acute abdominal pain TECHNIQUE: Multiaxial CT images of the abdomen and pelvis were performed without contrast. A dose lowering technique was utilized adhering to the principles of ALARA. COMPARISON STUDY: CT chest 11/11/2017, CT abdomen and pelvis 05/28/2017. FINDINGS: Evaluation of the lung bases is limited secondary to respiratory motion. Mild subsegmental dependent bibasilar atelectasis. There is no pneumatosis or pneumoperitoneum. The imaged inferior cardiac chambers are enlarged. Coronary arterial calcifications are noted. Prior median sternotomy. Mitral and aortic annular calcifications are noted. Prior cholecystectomy. Evaluation of the solid abdominal organs is limited without the use of IV contrast. Spleen and adrenal glands are within normal limits. Moderate generalized pancreatic atrophy. Mild nonspecific bilateral perinephric stranding. Multifocal cortical thinning and prequel scarring is noted throughout the right kidney. Bilateral nonobstructing nephrolithiasis measures up to 4 mm on the left. Low attenuating lesions of the kidneys bilaterally measuring up to 3.5 cm within the inferior pole left kidney suggests renal cysts, not completely evaluated on this noncontrast study. No ureteral calculi or obstructive uropathy. There is mild circumferential wall thickening of the urinary bladder with partial distention. Prostate appears mildly enlarged. Small fat filled bilateral inguinal hernias. Moderate calcification of the aorta without aneurysm. No bulky adenopathy. Moderate sized hiatal hernia. Small duodenal diverticulum. No bowel obstruction or focal bowel wall thickening. Colonic diverticulosis without CT evidence of acute diverticulitis. No ascites. The appendix appears noninflamed. Small fat filled periumbilical hernia, diastases 1.5 cm. Small subxiphoid ventral abdominal hernia is also noted, diastases 2.1 cm. The bones appear intact. IMPRESSION: 1. No acute intra-abdominal or intrapelvic abnormality identified. 2. Colonic diverticulosis without evidence of acute diverticulitis. 3. Bilateral nonobstructing renal calculi. 4. Moderate sized hiatal hernia. 5. Additional findings as above. Electronically signed by: Mason Cisneros M.D. 11/21/2017 12:08 PM Dictated Date/Time: 11/21/2017 11:58 AM
[2017-11-21 13:07] LABS: INFLUENZA A PCR Neg for Influ A (NEG); INFLUENZA B PCR Neg for Influ B (NEG)
[2017-11-21] MEDS ORDERED: GI COCKTAIL PO STA (13:55)
[2017-11-21] MEDS ORDERED: ONDANSETRON 2MG ODT PO STA (13:55)
[2017-11-21] MEDS ORDERED: LIDOCAINE HCL 2% VISC SOLN 20 ML UDC ONE (13:58)
[2017-11-21] MEDS ORDERED: ALUMINUM/MAGNESIUM SUSP 30 ML UDC ONE (13:58)
[2017-11-21] MEDS ORDERED: ONDA4TAB10 SL (14:00)
[2017-11-21] MEDS ORDERED: FAMOTIDINE 20 MG TAB PO ONE (14:00)
--- NOTE | 2017-11-21 14:02 | EMERGENCY ROOM VISIT NOTE ---
History Report prepared by Ivanna: Robert Hamlin Under the Supervision of: Dr. Bharath Man M.D. First contact with patient: 10:48 Chief Complaint: ABDOMINAL PAIN Stated Complaint: CHILLS,STOMACH PAIN,CHEST PRESSURE Nursing Triage Summary: abdominal pain and chills since yesterday. seen at PCP this am and sent here for evaluation. pt reports he is eating and drinking without difficulty and voiding and moving bowels without difficulty. pt denies V/D. +nausea. History of Present Illness The patient is an 82 year old male who presents to the Emergency Room after referral from his primary care office with complaints of persistent nausea that began last night. There is no abdominal pain with the nasuea. He has not had any diarrhea, but he did feel "chills" last night. The patient was recently admitted to the hospital 5 days ago for bradycardia and orthostasis. His follow- up appointment with his PCP was supposed to be tomorrow, but the patient's son brought him today for his symptoms. The PCP did an EKG which showed a subtle change form his previous, and referred the patient to the ED. The patient is not currently on any antibiotics. Source of History: patient, family Onset: Last night Position: abdomen Quality: other (Nausea) Timing: other (persistent) Associated Symptoms: + chills, No abdominal pain Review of Systems See HPI for pertinent positives and negatives. A total of ten systems were reviewed and were otherwise negative. 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 Family History Diabetes mellitus Heart disease Kidney disease Kidney stones Social History Smoking Status: Never Smoker Alcohol Use: none Drug Use: none Marital Status: single Housing Status: lives with family Occupation Status: retired Current/Historical Medications Scheduled Apixaban (Eliquis), 2.5 MG PO BID Aspirin (Aspirin Chewable), 81 MG PO QAM Atorvastatin (Lipitor), 40 MG PO HS Duloxetine Hcl (Cymbalta), 60 MG PO DAILY Finasteride (Proscar), 5 MG PO QAM Insulin Isophane (Human) (Humulin N Kwikpen), 33 UNITS SQ BID Levothyroxine Sodium (Synthroid), 50 MCG PO QAM Lisinopril (Zestril), 10 MG PO QAM Magnesium Hydroxide (Milk of Magnesia 400 mg/5Ml), 400 MG PO DIRECTED Magnesium Oxide (Mag-Ox), 400 MG PO BID Omeprazole (Prilosec), 40 MG PO QAM Ondasetron Odt (Zofran Odt), 4 MG SL Q6H Polyethylene Glycol 3350 (Miralax), 17 GM PO DIRECTED Pregabalin (Lyrica), 100 MG PO Q8H Ranitidine Hcl (Zantac), 150 MG PO BID Ranitidine Hcl (Zantac), 150 MG PO BID Senna (Senokot), 8.6 MG PO DAILY Tamsulosin HCl (Tamsulosin HCl), 1 CAP PO DAILY Scheduled PRN Tramadol (Ultram), 50 MG PO BID PRN for Pain Triamcinolone Acet (Triamcinolone Acetonide), 1 APPLN TOP BID PRN for PRN Allergies Coded Allergies: Oxycodone (Verified Adverse Reaction, Mild, NAUSEA/VOMITING, 11/16/17) N/V Tramadol (Unverified Adverse Reaction, Unknown, confusion, 11/16/17) Physical Exam Vital Signs Date Time Temp Pulse Resp B/P (MAP) Pulse Ox O2 Delivery O2 Flow Rate FiO2 11/21/17 14:11 80 18 155/85 97 11/21/17 13:13 65 18 153/84 97 Room Air 11/21/17 13:02 70 11/21/17 12:01 74 20 133/97 97 Room Air 11/21/17 10:49 76 11/21/17 10:34 36.4 81 18 105/70 97 Room Air Physical Exam GENERAL: Awake, alert, fatigued, chronically ill-appearing, in no distress HENT: Normocephalic, atraumatic. Mucous Membranes are dry. EYES: Normal conjunctiva. Sclera non-icteric. NECK: Supple. No nuchal rigidity. FROM. No JVD. RESPIRATORY: Clear to auscultation. CARDIAC: Regular rate, normal rhythm. Extremities warm and well perfused. Pulses equal. ABDOMEN: Soft, non-distended. Three is generalized abdominal discomfort with no discrete tenderness to palpation. No rebound or guarding. No masses. RECTAL: Deferred. MUSCULOSKELETAL: Chest examination reveals no tenderness. The back is symmetrical on inspection without obvious abnormality. There is no CVA tenderness to palpation. No joint edema. LOWER EXTREMITIES: Calves are equal size bilaterally and non-tender. No edema. No discoloration. NEURO: Normal sensorium. No sensory or motor deficits noted. SKIN: No rash or jaundice noted. Medical Decision & Procedures ER Provider Diagnostic Interpretation: Radiology results as stated below per my review and radiologist interpretation: ABDOMEN AND PELVIS CT WITHOUT CONTRAST CT DOSE: 612.15 mGy.cm HISTORY: Acute generalized abdominal pain acute abdominal pain TECHNIQUE: Multiaxial CT images of the abdomen and pelvis were performed without contrast. A dose lowering technique was utilized adhering to the principles of ALARA. COMPARISON STUDY: CT chest 11/11/2017, CT abdomen and pelvis 05/28/2017. FINDINGS: Evaluation of the lung bases is limited secondary to respiratory motion. Mild subsegmental dependent bibasilar atelectasis. There is no pneumatosis or pneumoperitoneum. The imaged inferior cardiac chambers are enlarged. Coronary arterial calcifications are noted. Prior median sternotomy. Mitral and aortic annular calcifications are noted. Prior cholecystectomy. Evaluation of the solid abdominal organs is limited without the use of IV contrast. Spleen and adrenal glands are within normal limits. Moderate generalized pancreatic atrophy. Mild nonspecific bilateral perinephric stranding. Multifocal cortical thinning and prequel scarring is noted throughout the right kidney. Bilateral nonobstructing nephrolithiasis measures up to 4 mm on the left. Low attenuating lesions of the kidneys bilaterally measuring up to 3.5 cm within the inferior pole left kidney suggests renal cysts, not completely evaluated on this noncontrast study. No ureteral calculi or obstructive uropathy. There is mild circumferential wall thickening of the urinary bladder with partial distention. Prostate appears mildly enlarged. Small fat filled bilateral inguinal hernias. Moderate calcification of the aorta without aneurysm. No bulky adenopathy. Moderate sized hiatal hernia. Small duodenal diverticulum. No bowel obstruction or focal bowel wall thickening. Colonic diverticulosis without CT evidence of acute diverticulitis. No ascites. The appendix appears noninflamed. Small fat filled periumbilical hernia, diastases 1.5 cm. Small subxiphoid ventral abdominal hernia is also noted, diastases 2.1 cm. The bones appear intact. IMPRESSION: 1. No acute intra-abdominal or intrapelvic abnormality identified. 2. Colonic diverticulosis without evidence of acute diverticulitis. 3. Bilateral nonobstructing renal calculi. 4. Moderate sized hiatal hernia. 5. Additional findings as above. Electronically signed by: Mason Cisneros M.D. 11/21/2017 12:08 PM Dictated Date/Time: 11/21/2017 11:58 AM CHEST ONE VIEW PORTABLE HISTORY: 82 years-old Male ABDOMINAL PAIN/GI acute generalized abdominal pain with atypical chest pain COMPARISON: Chest radiograph 11/16/2017, chest CT 11/11/2017 TECHNIQUE: Portable AP view of the chest FINDINGS: Cardiac silhouette is enlarged, unchanged. Prior median sternotomy. Atherosclerosis of the aorta. No pneumothorax, pleural effusion, or overt pulmonary edema. Reticular nodular opacities of the right lung base persist. No lobar airspace consolidation. Bones of the chest appear grossly intact. Degenerative changes are noted within the shoulders and spine. Prior cholecystectomy. IMPRESSION: 1. Persistent subsegmental reticular nodular opacities of the right lung base suggest infectious or inflammatory pneumonitis. 2. Cardiomegaly without overt pulmonary edema. The above report was generated using voice recognition software. It may contain grammatical, syntax or spelling errors. Electronically signed by: Mason Cisneros M.D. 11/21/2017 11:25 AM Dictated Date/Time: 11/21/2017 11:23 AM Laboratory Results 11/21/17 10:55 Red Blood Count 5.42, Mean Corpuscular Volume 89.1, Mean Corpuscular Hemoglobin 31.5, Mean Corpuscular Hemoglobin Concent 35.4, Mean Platelet Volume 12.5, Neutrophils (%) (Auto) 72.0, Lymphocytes (%) (Auto) 19.6, Monocytes (%) (Auto) 6.6, Eosinophils (%) (Auto) 1.1, Basophils (%) (Auto) 0.3, Neutrophils # (Auto) 5.34, Lymphocytes # (Auto) 1.45, Monocytes # (Auto) 0.49, Eosinophils # (Auto) 0.08, Basophils # (Auto) 0.02 11/21/17 10:55 Test 11/21/17 10:55 11/21/17 12:10 11/21/17 12:17 White Blood Count 7.41 K/uL (4.8-10.8) Red Blood Count 5.42 M/uL (4.7-6.1) Hemoglobin 17.1 g/dL (14.0-18.0) Hematocrit 48.3 % (42-52) Mean Corpuscular Volume 89.1 fL (80-100) Mean Corpuscular Hemoglobin 31.5 pg (25-34) Mean Corpuscular Hemoglobin Concent 35.4 g/dl (32-36) Platelet Count 86 K/uL (130-400) Mean Platelet Volume 12.5 fL (7.4-10.4) Neutrophils (%) (Auto) 72.0 % Lymphocytes (%) (Auto) 19.6 % Monocytes (%) (Auto) 6.6 % Eosinophils (%) (Auto) 1.1 % Basophils (%) (Auto) 0.3 % Neutrophils # (Auto) 5.34 K/uL (1.4-6.5) Lymphocytes # (Auto) 1.45 K/uL (1.2-3.4) Monocytes # (Auto) 0.49 K/uL (0.11-0.59) Eosinophils # (Auto) 0.08 K/uL (0-0.5) Basophils # (Auto) 0.02 K/uL (0-0.2) RDW Standard Deviation 47.1 fL (36.4-46.3) RDW Coefficient of Variation 14.6 % (11.5-14.5) Immature Granulocyte % (Auto) 0.4 % Immature Granulocyte # (Auto) 0.03 K/uL (0.00-0.02) Anion Gap 5.0 mmol/L (3-11) Est Creatinine Clear Calc Drug Dose 45.0 ml/min Estimated GFR () 53.8 Estimated GFR (Non- 46.5 BUN/Creatinine Ratio 12.5 (10-20) Lactic Acid Level 1.4 mmol/L (0.4-2.0) Calcium Level 9.5 mg/dl (8.5-10.1) Magnesium Level 2.3 mg/dl (1.8-2.4) Total Bilirubin 0.9 mg/dl (0.2-1) Direct Bilirubin 0.2 mg/dl (0-0.2) Aspartate Amino Transf (AST/SGOT) 20 U/L (15-37) Alanine Aminotransferase (ALT/SGPT) 35 U/L (12-78) Alkaline Phosphatase 90 U/L (45-117) Troponin I < 0.015 ng/ml (0-0.045) Pro-B-Type Natriuretic Peptide 1132 pg/ml (0-1800) Total Protein 7.7 gm/dl (6.4-8.2) Albumin 3.9 gm/dl (3.4-5.0) Lipase 83 U/L (73-393) Urine Color YELLOW Urine Appearance CLEAR (CLEAR) Urine pH 6.5 (4.5-7.5) Urine Specific [place] 1.020 (1.000-1.030) Urine Protein NEG (NEG) Urine Glucose (UA) NEG (NEG) Urine Ketones TRACE (NEG) Urine Occult Blood NEG (NEG) Urine Nitrite NEG (NEG) Urine Bilirubin NEG (NEG) Urine Urobilinogen NEG (NEG) Urine Leukocyte Esterase NEG (NEG) Influenza Type A (RT-PCR) Neg for Influ A (NEG) Influenza Type B (RT-PCR) Neg for Influ B (NEG) Laboratory results reviewed by me Medications Administered Medications (Trade) Dose Ordered Sig/Oscar Route Start Time Stop Time Status Last Admin Dose Admin Sodium Chloride 250 ml @ 999 mls/hr Q16M STAT IV 11/21/17 10:56 11/21/17 11:11 DC 11/21/17 11:58 999 MLS/HR Ondansetron HCl (Zofran Odt) 4 mg NOW STAT PO 11/21/17 13:55 11/21/17 13:57 DC 11/21/17 14:01 4 MG Famotidine (Pepcid Tab) 20 mg NOW ONCE PO 11/21/17 14:00 11/21/17 14:01 DC 11/21/17 14:01 20 MG Al Hydroxide/Mg Hydroxide (Maalox Susp) 30 ml STK-MED ONCE .ROUTE 11/21/17 13:58 11/21/17 13:59 DC 11/21/17 14:01 30 ML Lidocaine HCl (Viscous Lidocaine 2% Soln) 20 ml STK-MED ONCE .ROUTE 11/21/17 13:58 11/21/17 13:59 DC 11/21/17 14:01 20 ML ECG Per My Interpretation Indication: nausea Rate (beats per minute): 71 Rhythm: atrial fibrillation Findings: other (Normal [place], no acute ischemia) ED Course 1050: The patient was evaluated in room B3B. A complete history and physical exam was performed. 1404: I reevaluated the patient. Discussed results and discharge instructions: He verbalized understanding and agreement. The patient is ready for discharge. Medical Decision I reviewed the patient's past medical history, medications, and the nursing notes as described above. Differential diagnosis: Etiologies such as metabolic, infection, hypo/hyperglycemia, electrolyte abnormalities, cardiac sources, intracerebral event, toxicologic, neurologic, as well as others were entertained. The patient is an 82-year-old gentleman with a past medical history of CAD status post [place] and stent and CABG, history of CVA, hypertension, hyperlipidemia , A. fib on Eliquis, CKD stage III who presents to the emergency department with generalized weakness and chills last night seen by PCP today and was referred to the ED for evaluation in the setting of recently being admitted for dizziness, bradycardia, hypotension and discharged yesterday per hpi. On arrival the patient is fatigued appearing but no acute distress, afebrile stable vital signs. EKG demonstrates his known A. fib. Labs unremarkable including WBC, troponin, and lactate within normal limits per. Chest x-ray unchanged from prior. CT abdomen pelvis negative for acute findings. Given the patient's symptoms of upper generalized abdominal discomfort symptoms likely related to reflux/gastritis. Will try treating empirically for gastritis with H2 baldemar and GI cocktail. He is already on omeprazole and will we will reinitiate his Zantac. Patient will follow up with his PCP on Friday for reevaluation. Findings and plan for follow-up reviewed with patient and his son at the bedside. Patient and son agreeable and d/c'd per discharge instructions. Medication Reconcilliation Current Medication List: was personally reviewed by me Blood Pressure Screening Patient's blood pressure: Normal blood pressure Impression Primary Impression: Gastritis Additional Impression: Dehydration Scribe Attestation The scribe's documentation has been prepared under my direction and personally reviewed by me in its entirety. I confirm that the note above accurately reflects all work, treatment, procedures, and medical decision making performed by me. Departure Information Dispostion Home / Self-Care Prescriptions Ranitidine Hcl (ZANTAC) 150 Mg Tab 150 MG PO BID for 14 Days, #28 TAB Prov: Bharath Man M.D. 11/21/17 Ondasetron Odt (ZOFRAN ODT) 4 Mg Tab 4 MG SL Q6H for Nausea, #10 TAB Prov: Bharath Man M.D. 11/21/17 Referrals Matt Comer M.D. (PCP) Patient Instructions ED Gastritis, ED PUD Vs Gastritis, [facility] Additional Instructions Please follow up with your primary care physician in the next 1-3 days for re- evaluation. The cause of your symptoms is not clear at this time but may be due to mild dehydration and possible gastritis. Otherwise, your exam, EKG, chest xray, and lab results did not show signs of an emergent condition at this time. Continue your omeprazole and zantac as prescribed. Tums as needed for GI upset. Zofran as needed for nausea. Drink plenty of fluids to ensure hydration. Return to the emergency department for worsening symptoms as described in the accompanying instructions. Problem Qualifiers
[2017-11-21] MEDS ORDERED: RANI150T3 PO (14:06)
[2017-11-21 14:11] VITALS: BP 155/85; PULSE 80; O2SAT 97
== END 2017-11-21 14:15 | disposition home or self-care (01) ==
LOC: C.EDB 10:31
DX: K29.70 Gastritis, unspecified, without bleeding (principal); E86.0 Dehydration; I25.2 Old myocardial infarction; I48.91 Unspecified atrial fibrillation; Z95.1 Presence of aortocoronary bypass graft; I25.10 Atherosclerotic heart disease of native coronary artery without angina pectoris; E78.5 Hyperlipidemia, unspecified; Z86.73 Personal history of transient ischemic attack (TIA), and cerebral infarction without residual deficits; I10 Essential (primary) hypertension; Z79.82 Long term (current) use of aspirin; Z79.4 Long term (current) use of insulin; Z79.899 Other long term (current) drug therapy; Z88.5 Allergy status to narcotic agent

== ENCOUNTER 2019-01-09 14:45 | Inpatient (IN) ==
[2019-01-09] MEDS ORDERED: PATIENT'S HEIGHT AND/OR WEIGHT NEEDED SCH (15:15)
--- NOTE | 2019-01-09 15:15 | CT Scan Report ---
CT head/brain wo con CLINICAL HISTORY: 83 years-old Male presenting with stroke symptoms. TECHNIQUE: Multidetector CT imaging of the head was performed without the use of intravenous contrast . IV contrast: None. One or more dose lowering techniques were used consistent with the principles of ALARA (as low as reasonably achievable), including automatic exposure control, mA or kV adjustment t o individual patient size, and/or use of iterative reconstruction. COMPARISON: 11/16/2017. CT DOSE (mGy.cm): The estimated cumulative dose is 614.27 mGy.cm. FINDINGS: Chinese Language Professor topogram: Unremarkable. Proportional ventricular and sulcal prominence, likely age-related parenchymal volume loss. No hemorr martha. Periventricular and subcortical white matter hypoattenuation, nonspecific but likely indicative of chronic small vessel ischemic change. 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 O ld cortical infarct in the anterolateral right temporal lobe unchanged. No acute territorial infarct. No mass effect or midline shift. No extra-axial fluid collection. Trace mucosal thickening in machine hoop maker helper ior ethmoid air cells on the left. Calvarium intact. IMPRESSION: 1. No significant change compared to the prior study. No acute intracranial abnormality. No hemorrha ge. These findings were discussed with Dr. Delgadillo by Dr. Alvarez on 01/09/2019 3:11 PM. Electronically signed by: Pancho Alvarez M.D. 01/09/2019 3:13 PM
[2019-01-09] MEDS ORDERED: SODIUM CHLORIDE 0.9% 1000ML 250 ML IV ONE (15:19)
[2019-01-09 15:39] LABS: Basophils # (auto) 0.02 K/uL (0-0.2); Basophils % (auto) 0.3 %; Eosinophils # (auto) 0.14 K/uL (0-0.5); Hematocrit (blood only) 48.8 % (42-52); Hemoglobin 17.5 g/dL (14.0-18.0); Immature Granulocytes # (auto) 0.01 K/uL (0.00-0.02); Immature Granulocytes % (auto) 0.1 %; Lymphocytes # (auto) 1.53 K/uL (1.2-3.4); Lymphocytes % (auto) 22.3 %; Mean Corpuscular Hemoglobin 30.4 pg (25-34); Mean Corpuscular Hgb Conc 35.9 g/dL (32-36); Mean Corpuscular Volume 84.7 fL (80-100); Mean Platelet Volume 11.7 fL (7.4-10.4); Monocytes # (auto) 0.59 K/uL (0.11-0.59); Monocytes % (auto) 8.6 %; Neutrophils # (auto) 4.56 K/uL (1.4-6.5); Neutrophils % (auto) 66.7 %; Platelet Count 100 K/uL (130-400); RDW Coefficient of Variation 14.7 % (11.5-14.5); Red Blood Count 5.76 M/uL (4.7-6.1); White Blood Count 6.85 K/uL (4.8-10.8)
[2019-01-09 15:43] LABS: iSTAT Creatinine 1.9 mg/dl (0.6-1.3); iSTAT Hemoglobin 17.3 g/dl (14.0-18.0); iSTAT Ionized Calcium 1.21 mmol/l (1.12-1.32); iSTAT Potassium 4.8 mEq/L (3.3-5.0)
[2019-01-09 15:49] LABS: INR 1.1 (0.9-1.1); Partial Thromboplastin Ratio 1.1; Prothrombin Time 11.4 Seconds (9.0-12.0)
[2019-01-09 15:56] LABS: Alanine Aminotransferase 33 U/L (12-78); Albumin Level 3.6 gm/dl (3.4-5.0); Aspartate Aminotransferase 22 U/L (15-37); BUN Creatinine Ratio 10.9 (10-20); Blood Urea Nitrogen 21 mg/dl (7-18); Calcium 9.5 mg/dl (8.5-10.1); Carbon Dioxide 23 mmol/L (21-32); Est GFR (African American) 35.8; Est GFR (Non-African American) 30.9; Glucose 213 mg/dl (70-99); Magnesium 2.3 mg/dl (1.8-2.4)
[2019-01-09 16:57] LABS: Alkaline Phosphatase 100 U/L (45-117); Bilirubin,Total 0.8 mg/dl (0.2-1); Chloride 104 mmol/L (98-107); Globulin 3.8 gm/dl (2.5-4.0); Potassium 4.7 mmol/L (3.5-5.1); Sodium 139 mmol/L (136-145); Total Protein 7.4 gm/dl (6.4-8.2); Troponin I < 0.015 ng/ml (0-0.045)
--- NOTE | 2019-01-09 17:51 | History & Physical Report ---
Date of Service January 09, 2019 Assessment & Plan (1) Stroke-like symptoms: Recurrent stroke like sx, hx of prior CVA 10-[address] head neg for acute CBC, PRP WNL EKG noted Recent TSH 11/11/18 WNL, will not repeat MRI/MRA pending ECHO pending Neuro c/s pending PT/OT/speech evals pending (2) Chest pain: Trop neg x1, serials pending EKG neg for acute Tele monitor ECHO pending Hx of CABG (3) ARF (acute renal failure): Cr 1.9 on admission Last was 1.3 Monitor (4) Hypertension: continue home meds (5) Afib: continue home meds, on eliquis (6) Neuropathy: continue home meds Feels current lyrica, cymbalta, tramadol is not very effective Tried gabapentin in the past and did not work Advised that we should not alter these medications at present due to his neuro sx, but can be addressed once this is resolved (7) Hypothyroid: continue home meds Recent TSH WNL (8) Hyperlipidemia: continue home meds (9) HTN (hypertension): continue home meds (10) GERD (gastroesophageal reflux disease): continue home meds (11) DM type 2 (diabetes mellitus, type 2): SSI PRN Recent A1c 6.2 on 11/11, will not recheck (12) DVT prophylaxis: Eliquis History of Present Illness Primary Care Provider: Matt Comer MD 83 y/o M c/o recurrent stroke-like sx. Pt states he has not felt his usual for the last few days. He has had intermittent lightheadedness that comes and goes without reason. After his grandson's baseball game today, pt had recurrent of lightheadedness, however he then progressed to staring and AMS with some slurred speech and not following commands. This lasted about 45 minutes and then resolved, however it returned a bit later and last for an hour. Pt states that he feels at his usual at present. Pt states he had chest pain with this. He states he has also been having intermittent chest pain over the last month. Substernal and nonradiating. This happens with activity, but not all activity and lasts for about 10-15 minutes and then resolves. No SOB. Pt denies fever, abd pain, n/v/c/d, LE swelling. Pt always has LE pain due to neuropathy. All hx is per pt. Family has left the ED. Allergies Allergy/AdvReac Type Severity Reaction Status Date / Time oxycodone AdvReac Mild NAUSEA/VOMI Verified 01/09/19 17:07 TING tramadol AdvReac Unknown confusion Unverified 01/09/19 17:07 Home Medications Home Medications Medication Instructions Recorded Confirmed Type apixaban [Eliquis] 2.5 mg PO BID 01/09/19 01/09/19 History aspirin [Aspir-81] 81 mg PO DAILY 01/09/19 01/09/19 History atorvastatin 80 mg PO HS 01/09/19 01/09/19 History duloxetine 60 mg PO DAILY 01/09/19 01/09/19 History finasteride 5 mg PO DAILY 01/09/19 01/09/19 History insulin NPH isoph U-100 human 27 - 28 unit SUBCUT BID 01/09/19 01/09/19 History [Novolin N NPH U-100 Insulin] levothyroxine 50 mcg PO DAILY 01/09/19 01/09/19 History lisinopril 5 mg PO DAILY 01/09/19 01/09/19 History magnesium oxide 400 mg PO BID 01/09/19 01/09/19 History omeprazole 40 mg PO QAM 01/09/19 01/09/19 History polyethylene glycol 3350 [Miralax] 17 g PO DAILY 01/09/19 01/09/19 History pregabalin [Lyrica] 50 mg PO TID 01/09/19 01/09/19 History ranitidine HCl 150 mg PO BID 01/09/19 01/09/19 History sennosides [senna] 8.6 mg PO DAILY PRN 01/09/19 01/09/19 History tamsulosin 0.4 mg PO DAILY 01/09/19 01/09/19 History Past Med/Surg History Social History Feels Safe at Home: Yes Smoking Status: Never smoker Hx Alcohol Use: Yes (hx of heavy use, none x25 yrs) Hx Substance Use: No Review of Systems Review of Systems: Pertinent positives and negatives reviewed in HPI--all others negative Physical Exam Constitutional: WD/WN, vitals as above Eyes: normal visual lange by confrontation and + anicteric sclerae Neck: normal visual inspection and trachea midline Respiratory: normal respiratory effort, lungs clear to auscultation Cardiovascular: Rate/Rhythm: regular rate and regular rhythm Gastrointestinal (Abdomen): Inspection/Auscultation: abdomen not distended Percussion/Palpation: abdomen soft; abdomen nontender Musculoskeletal: Head/Neck/Chest: normocephalic and head atraumatic negati ve for edema, peripheral pulses intact Skin: no rashes, warm and dry Neurologic: CN's II-XI intact bilaterally and awake; not confused Speech / Cognition: normal speech 5/5 health lead strength b/l LE 5/5 strength against resistance in all planes Psychiatric: A+Ox3, euthymic affect Eye Contact: good eye contact Speech: normal rate/rhythm/volume of speech Thought Process: clear/coherent thought process Results & Data Vital Signs (Past 12 Hours) Vital Signs Temp Pulse Pulse Resp BP BP Pulse Ox 01/09/19 17:30 76 17 151/96 H 98 01/09/19 16:48 79 17 124/96 92 01/09/19 16:31 70 125/77 94 01/09/19 16:12 73 18 124/85 97 01/09/19 15:40 94 01/09/19 14:46 36.8 C 74 20 126/[address] head: neg for acute ECG Rhythm: atrial fibrillation Code Status & VTE Plan Code Status Full cardiac code, does not want intubated VTE Prophylaxis Plan VTE Prophylaxis will be ordered: Yes PG Care Time/CCT Total # of Minutes Spent Total Time Spent with Patient: Total time spent is greater than 50% in coordination of care (as documented) at patient's floor/unit and/or counseling patient:
--- NOTE | 2019-01-09 18:22 | Emergency Department Note ---
Entered by Sabine Tomlinson acting as a scribe for Damian Delgadillo MD History of Present Illness General Chief complaint: Confusion Stated complaint: [id number] WALKING-LOW BLOOD PRESSURE Source: patient and family Mode of arrival: wheelchair History of Present Illness Provider complaint: Altered mental status Onset (ago): minute(s) 45 Location: head Radiation: non-radiation Relieved By: + none Exacerbated By: + none Associated symptoms: + headaches, + shortness of breath, + weakness and + other (+slurred speech, +dizziness, +urination); no chest pain, no fever/chills and no nausea/vomiting Treatments prior to arrival: none The patient is a 83 year old male who presents to the ED with altered mental status. Per his grandson, the patient and he were at a baseball game about an hour ago. The temperature outside was 74 degrees and they were sitting in the sun. The patient ate a hot dog and was acting normal when about 1:45 PM he started acting lethargic. 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 When the grandson parked the car and got him out, he could not find where to put his left foot to get out of the truck. He did not fall out of the truck and was sat down onto a chair inside. He could not speak and his tongue was out. The grandson reports that he tested his sugars and they were 178. He also tested the blood pressure which was around 98/68. He reports he took his medications , Friday, and this morning. He also reports that the patient was drooling a small amount and it appeared to have some difficulty breathing. After he took the patients BP he was able to talk again. The patient is oriented x3 but his speech is slurred. He states that he has a headache. He denies having a chest pain, shortness of breath, fever, vomiting, and can urinate normally. Home Medications Home Medications Medication Instructions Recorded Confirmed Type apixaban [Eliquis] 2.5 mg PO BID 01/09/19 01/09/19 History aspirin [Aspir-81] 81 mg PO DAILY 01/09/19 01/09/19 History atorvastatin 80 mg PO HS 01/09/19 01/09/19 History duloxetine 60 mg PO DAILY 01/09/19 01/09/19 History finasteride 5 mg PO DAILY 01/09/19 01/09/19 History insulin NPH isoph U-100 human 27 - 28 unit SUBCUT BID 01/09/19 01/09/19 History [Novolin N NPH U-100 Insulin] levothyroxine 50 mcg PO DAILY 01/09/19 01/09/19 History lisinopril 5 mg PO DAILY 01/09/19 01/09/19 History magnesium oxide 400 mg PO BID 01/09/19 01/09/19 History omeprazole 40 mg PO QAM 01/09/19 01/09/19 History polyethylene glycol 3350 [Miralax] 17 g PO DAILY 01/09/19 01/09/19 History pregabalin [Lyrica] 50 mg PO TID 01/09/19 01/09/19 History ranitidine HCl 150 mg PO BID 01/09/19 01/09/19 History sennosides [senna] 8.6 mg PO DAILY PRN 01/09/19 01/09/19 History tamsulosin 0.4 mg PO DAILY 01/09/19 01/09/19 History Allergies Allergy/AdvReac Type Severity Reaction Status Date / Time oxycodone AdvReac Mild NAUSEA/VOMI Verified 01/09/19 17:07 TING tramadol AdvReac Unknown confusion Unverified 01/09/19 17:07 Past Med/Surg History Medical History DM type 2 (diabetes mellitus, type 2) GERD (gastroesophageal reflux disease) HTN (hypertension) Hyperlipidemia Hypothyroid Neuropathy Social History Feels Safe at Home: Yes Smoking Status: Never smoker Hx Alcohol Use: Yes (hx of heavy use, none x25 yrs) Hx Substance Use: No Review of Systems See HPI for pertinent positives & negatives. and A total of 10 systems reviewed and were otherwise negative Physical Exam Vital Signs Vital Signs - 24 hr 01/09/19 14:46 01/09/19 15:40 01/09/19 16:12 Temperature 36.8 C Temperature Source Oral Sepsis Recent Fever Within 48 Hours No Sepsis New/Unexplained Change in Mental Status No Sepsis Action Taken by Nursing No Action Required Pulse Rate 74 Pulse Rate [Apical] 73 Pulse Rate from SpO2 Sensor Respiratory Rate 20 18 Blood Pressure 126/78 Blood Pressure [Right Arm] 124/85 Blood Pressure Mean 94 Blood Pressure Mean [Right Arm] 98 Pulse Oximetry 94 94 97 Oxygen Delivery Method Room Air Room Air Room Air 01/09/19 16:31 01/09/19 16:48 01/09/19 17:30 Temperature Temperature Source Sepsis Recent Fever Within 48 Hours Sepsis New/Unexplained Change in Mental Status Sepsis Action Taken by Nursing Pulse Rate 70 79 76 Pulse Rate [Apical] Pulse Rate from SpO2 Sensor 74 75 77 Respiratory Rate 17 17 Blood Pressure 125/77 124/96 151/96 H Blood Pressure [Right Arm] Blood Pressure Mean 93 105 114 Blood Pressure Mean [Right Arm] Pulse Oximetry 94 92 98 Oxygen Delivery Method Constitutional: Vital signs reviewed. Eyes: Pupils are equal round reactive to light. Conjunctiva are noninjected. ENT: Pharynx is clear without erythema or exudate. Mucous membranes are moist. Neck supple without meningeal signs. Respiratory: Clear to auscultation bilaterally. Breath sounds are equal bilaterally. Cardiovascular: Regular rate and rhythm. No rubs or gallops. GI: Soft, nondistended and nontender. Bowel sounds are present. Musculoskeletal: No peripheral edema. No lower extremity tenderness. Integumentary: No cyanosis. Neurological: The patient is awake and alert. Cranial nerves II-XII are intact. Motor is 5 out of 5 all extremities. Sensation is intact to light touch all extremities. Slurred speech. No pronator drift. Psychiatric: Normal affect. Course 1507: The patient was evaluated in room B1 and a complete history and physical were performed. 1511: The radiologist said the CT results were negative. 1514: I discussed the patients case with Dr. Ibrahim, [facility]. He recommends a CTA and to call me back with the findings. 1550: I reevaluated the patient. He states he just has a headache because he needs to be positioned higher on the bed. I discussed his test results with him. 1641: The patient states that his headache is much better and has no complaints. 1704: [facility] the patient will be further evaluated. Consultations Consultation #1: [facility], the patient will be further evaluated. Time: 17:04 Administered Medications Discontinued Medications Sodium Chloride (Nss 1000ml) 250 mls @ 999 mls/hr IV .Q16M ONE Stop: 01/09/19 15:34 Last Infusion: 01/09/19 16:04 Dose: 0 mls/hr Documented by: [id number] Admin: 01/09/19 15:43 Dose: 999 mls/hr Documented by: [id number] Medical Decision Making Differential Diagnosis Differential diagnosis includes: stroke, TIA, ICH, infection, cardiac, amongst others Medical Records Attestation: I reviewed the patient's medical records. I did perform a limited focused review of portions of the patient's old chart on the electronic medical record. The patient was here in October for dizziness, HTN, and bradycardia. Home Medications Current Medication List: was personally reviewed by me Laboratory Data Attestation: I reviewed the patient's lab results. Result diagrams: 01/09/19 15:26 01/09/19 15:26 Lab Results 01/09/19 01/09/19 01/09/19 Range/Units 15:24 15:26 15:26 WBC 6.85 (4.8-10.8) K/uL RBC 5.76 (4.7-6.1) M/uL Hgb 17.5 (14.0-18.0) g/dL POC Hgb (14.0-18.0) g/dl Hct 48.8 (42-52) % POC Hct (42-52) % MCV 84.7 (80-100) fL MCH 30.4 (25-34) pg MCHC 35.9 (32-36) g/dL RDW Std Deviation 45.0 (36.4-46.3) fL RDW Coeff of Eben 14.7 H (11.5-14.5) % Plt Count 100 L (130-400) K/uL MPV 11.7 H (7.4-10.4) fL Immature Gran % (Auto) 0.1 % Neut % (Auto) 66.7 % Lymph % (Auto) 22.3 % Wise % (Auto) 8.6 % Eos % (Auto) 2.0 % Baso % (Auto) 0.3 % Immature Gran # (Auto) 0.01 (0.00-0.02) K/uL Neut # (Auto) 4.56 (1.4-6.5) K/uL Lymph # (Auto) 1.53 (1.2-3.4) K/uL Wise # (Auto) 0.59 (0.11-0.59) K/uL Eos # (Auto) 0.14 (0-0.5) K/uL Baso # (Auto) 0.02 (0-0.2) K/uL PT 11.4 (9.0-12.0) Seconds INR 1.1 (0.9-1.1) APTT 31.0 (21.0-31.0) Seconds PTT Ratio 1.1 POC Sodium (135-144) mEq/L Sodium (136-145) mmol/L POC Potassium (3.3-5.0) mEq/L Potassium (3.5-5.1) mmol/L POC Chloride (101-112) mEq/L Chloride (98-107) mmol/L Carbon Dioxide (21-32) mmol/L POC Total CO2 (24-31) mEq/l Anion Gap (3-11) POC Anion Gap (16-25) mmol/L POC BUN (7-18) mg/dl BUN (7-18) mg/dl Creatinine (0.6-1.4) mg/dl POC Creatinine (0.6-1.3) mg/dl Est Cr Clr Drug Dosing ml/min Est GFR ( Amer) Est GFR (Non-Af Amer) BUN/Creatinine Ratio (10-20) Glucose (70-99) mg/dl POC Glucose 217 H (70-99) POC Glucose (other) (70-99) mg/dl Calcium (8.5-10.1) mg/dl POC Ioniz Calcium Estevan (1.12-1.32) mmol/l Magnesium (1.8-2.4) mg/dl Total Bilirubin (0.2-1) mg/dl AST (15-37) U/L ALT (12-78) U/L Alkaline Phosphatase (45-117) U/L Troponin I (0-0.045) ng/ml Total Protein (6.4-8.2) gm/dl Albumin (3.4-5.0) gm/dl Globulin (2.5-4.0) gm/dl Albumin/Globulin Ratio (0.9-2) 01/09/19 01/09/19 Range/Units 15:26 15:29 WBC (4.8-10.8) K/uL RBC (4.7-6.1) M/uL Hgb (14.0-18.0) g/dL POC Hgb 17.3 (14.0-18.0) g/dl Hct (42-52) % POC Hct 51 (42-52) % MCV (80-100) fL MCH (25-34) pg MCHC (32-36) g/dL RDW Std Deviation (36.4-46.3) fL RDW Coeff of Eben (11.5-14.5) % Plt Count (130-400) K/uL MPV (7.4-10.4) fL Immature Gran % (Auto) % Neut % (Auto) % Lymph % (Auto) % Wise % (Auto) % Eos % (Auto) % Baso % (Auto) % Immature Gran # (Auto) (0.00-0.02) K/uL Neut # (Auto) (1.4-6.5) K/uL Lymph # (Auto) (1.2-3.4) K/uL Wise # (Auto) (0.11-0.59) K/uL Eos # (Auto) (0-0.5) K/uL Baso # (Auto) (0-0.2) K/uL PT (9.0-12.0) Seconds INR (0.9-1.1) APTT (21.0-31.0) Seconds PTT Ratio POC Sodium 138 (135-144) mEq/L Sodium 139 (136-145) mmol/L POC Potassium 4.8 (3.3-5.0) mEq/L Potassium 4.7 (3.5-5.1) mmol/L POC Chloride 104 (101-112) mEq/L Chloride 104 (98-107) mmol/L Carbon Dioxide 23 (21-32) mmol/L POC Total CO2 21 L (24-31) mEq/l Anion Gap 11.0 (3-11) POC Anion Gap 20.0 (16-25) mmol/L POC BUN 23 H (7-18) mg/dl BUN 21 H (7-18) mg/dl Creatinine 1.95 H (0.6-1.4) mg/dl POC Creatinine 1.9 H (0.6-1.3) mg/dl Est Cr Clr Drug Dosing 33.0 ml/min Est GFR ( Amer) 35.8 Est GFR (Non-Af Amer) 30.9 BUN/Creatinine Ratio 10.9 (10-20) Glucose 213 H (70-99) mg/dl POC Glucose (70-99) POC Glucose (other) 227 H (70-99) mg/dl Calcium 9.5 (8.5-10.1) mg/dl POC Ioniz Calcium [place] 1.21 (1.12-1.32) mmol/l Magnesium 2.3 (1.8-2.4) mg/dl Total Bilirubin 0.8 (0.2-1) mg/dl AST 22 (15-37) U/L ALT 33 (12-78) U/L Alkaline Phosphatase 100 (45-117) U/L Troponin I < 0.015 (0-0.045) ng/ml Total Protein 7.4 (6.4-8.2) gm/dl Albumin 3.6 (3.4-5.0) gm/dl Globulin 3.8 (2.5-4.0) gm/dl Albumin/Globulin Ratio 1.0 (0.9-2) Imaging Data Radiologist's Impression: Radiology results as stated below per my review and the radiologist's interpretation: CT head/brain wo con CLINICAL HISTORY: 83 years-old Male presenting with stroke symptoms. TECHNIQUE: Multidetector CT imaging of the head was performed without the use of intravenous contrast. IV contrast: None. One or more dose lowering techniques were used consistent with the principles of ALARA (as low as reasonably achievable), including automatic exposure control, mA or kV adjustment to individual patient size, and/or use of iterative reconstruction. COMPARISON: 11/16/2017. CT DOSE (mGy.cm): The estimated cumulative dose is 614.27 mGy.cm. FINDINGS: Marine Animal Trainer topogram: Unremarkable. Proportional ventricular and sulcal prominence, likely age-related parenchymal volume loss. No hemorrhage. Periventricular and subcortical white matter hypoattenuation, nonspecific but likely indicative of chronic small vessel ischemic change. 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 Old cortical infarct in the anterolateral right temporal lobe unchanged. No acute territorial infarct. No mass effect or midline shift. No extra-axial fluid colle ction. Trace mucosal thickening in posterior ethmoid air cells on the left. Calvarium intact. IMPRESSION: 1. No significant change compared to the prior study. No acute intracranial abnormality. No hemorrhage. These findings were discussed with Dr. Delgadillo by Dr. Alvarez on 01/09/2019 3:11 PM. Electronically signed by: Pancho Alvarez M.D. 01/09/2019 3:13 PM ECG Data Attestation: I personally reviewed and interpreted this ECG as follows: Indication: weakness Rate (beats per minute): 75 Rhythm: atrial fibrillation Findings: + peaked T-waves (v2-v5); no ST elevation Comparison ECG Date: from (11/21/2017) Change: no significant change Blood Pressure Blood Pressure Findings: Elevated blood pressure Blood Pressure Disposition: further management by hospitalist MDM Narrative A stroke alert was called by the nurse. A stat CT of the head was ordered. I did review the images myself as well as the radiology report as described above. There is no evidence of acute intracranial process. I did evaluate the patient as noted above. He is neurologically intact although he has some slurring of his speech. I did speak to the [facility] neurologist who agreed that TPA was not indicated. The patient is on Eliquis. Also his symptoms are mostly resolved. IV access was established. The patient was placed on a continuous wing scorer. I did order and personally review the patient's 12-lead EKG as described above. He has A. fib with peaked T waves. No significant change from his prior EKG. I did order and review the patient's blood work as noted in the electronic medical record. His creatinine is elevated at 1.95. His white count is not elevated. He is not anemic. His INR is 1.1. He was given IV fluids. I did discuss the test results with the patient. He has no complaints at this time. Initially complained of a headache but once he sat upright he stated his headache was improved. I did recommend hospitalization for further evaluation of his symptoms. I did discuss case with the hospitalist and piano case maker. Impression & Plan Altered mental status, Hypotension, NAVEED (acute kidney injury), Anticoagulated Discharge Plan Visit Data Chief Complaint: Confusion Stated Complaint: [id number] WALKING-LOW BLOOD PRESSURE ED Provider: Damian Delgadillo Discharge Problem: Altered mental status, Hypotension, NAVEED (acute kidney injury), Anticoagulated Patient Disposition: Being Evaluated by Hospitalist Discharge Instructions Interventions: ED Discharge Assessment Last Done: 01/09/19 17:58 Discharge Problem: Altered mental status Qualifiers: Altered mental status type: unspecified Qualified Code(s): R41.82 - Altered men aby status, unspecified Hypotension Qualifiers: Hypotension type: unspecified hypotension type Qualified Code(s): I95.9 - Hypotension, unspecified The scribe's documentation has been prepared under my direction and personally reviewed by me in its entirety. I confirm that the note above accurately r eflects all work, treatment, procedures, and medical decision making performed by me.
[2019-01-09] MEDS ORDERED: PHARMACIST DISCHARGE MED REC CONSULT PRN (18:28)
[2019-01-09] MEDS ORDERED: GLUCAGON FOR INJ 1 MG VIAL SQ PRN (18:28)
[2019-01-09] MEDS ORDERED: GLUCOSE 40% GEL 15 GM TUBE PO PRN (18:28)
[2019-01-09] MEDS ORDERED: DEXTROSE 50% 50 ML SYRINGE IV PRN (18:28)
[2019-01-09] MEDS ORDERED: GLUCOSE 10 TABS/TUBE PO PRN (18:28)
[2019-01-09] MEDS ORDERED: ACETAMINOPHEN 325 MG TAB PO PRN (18:28)
[2019-01-09] MEDS ORDERED: CARBOHYDRATES FOR HYPOGLYCEMIA PO PRN (18:28)
[2019-01-09] MEDS ORDERED: MAGNESIUM HYDROXIDE SUSP 30 ML UDC PO PRN (18:28)
[2019-01-09] MEDS ORDERED: SENNA 8.6 MG TAB PO PRN (18:28)
[2019-01-09] MEDS ORDERED: ONDANSETRON INJ 2 MG/ML 2 ML VIAL IV PRN (18:28)
[2019-01-09] MEDS: APIXABAN 2.5 MG TAB PO SCH (20:13)
[2019-01-09] MEDS: MAGNESIUM OXIDE 400 MG TAB PO SCH (20:14)
[2019-01-09] MEDS: ATORVASTATIN 40 MG TAB PO SCH (20:15)
[2019-01-09] MEDS: INSULIN ASPART 100 UNITS/ML 3 ML PEN SC SCH (21:01)
[2019-01-09] MEDS: PREGABALIN 50 MG CAP PO SCH (21:13)
[2019-01-10 02:40] LABS: BUN Creatinine Ratio 11.4 (10-20); Calcium 8.9 mg/dl (8.5-10.1); Creatinine Clr Calc Pharmacy 36.6 ml/min; Est GFR (African American) 41.1; Est GFR (Non-African American) 35.5; Potassium 4.4 mmol/L (3.5-5.1)
[2019-01-10] MEDS: LEVOTHYROXINE SODIUM 50 MCG TABLET PO SCH (06:03)
[2019-01-10 06:11] LABS: Appearance Urine Clear (Clear); Bilirubin Urine Negative (Negative); Blood Urine Negative (Negative); Color Urine Yellow; Glucose Urine UA Negative (Negative); Ketones Urine Negative (Negative); Leukocyte Esterase Urine Negative (Negative); Nitrite Urine Negative (Negative); Protein Urine Negative (Negative); Specific Gravity Urine 1.013 (1.000-1.030); Urobilinogen Urine Negative (Negative); pH Urine 6.5 (4.5-7.5)
[2019-01-10] MEDS: FINASTERIDE 5 MG TAB PO SCH (09:00)
[2019-01-10] MEDS: PANTOprazole 40 MG TAB PO SCH (09:00)
[2019-01-10] MEDS: MAGNESIUM OXIDE 400 MG TAB PO SCH ×2 (09:00→20:02)
[2019-01-10] MEDS: TAMSULOSIN HCL 0.4 MG CAP PO SCH (09:00)
[2019-01-10] MEDS: LISINOPRIL 5 MG TAB PO SCH (09:00)
[2019-01-10] MEDS: APIXABAN 2.5 MG TAB PO SCH ×2 (09:00→20:01)
[2019-01-10] MEDS: POLYETHYLENE (MIRALAX) 17 GM PACK PO SCH (09:00)
[2019-01-10] MEDS: DULOXETINE HCL 60 MG CAP PO SCH (09:00)
[2019-01-10] MEDS: ASPIRIN 81 MG ECTAB PO SCH (09:00)
[2019-01-10] MEDS: INSULIN ASPART 100 UNITS/ML 3 ML PEN SC SCH ×4 (09:11→20:02)
--- NOTE | 2019-01-10 09:20 | Neurology Consultation ---
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 He has some other findings on examination that could be related including some gaze evoked nystagmus to the r ight as well as some potentially crossed sensorimotor findings affecting the right face and left lower limb. He has an underlying diabetic peripheral neuropathy as well. Unfortunately, it looks like a brain MRI may not be able to be completed given some concerns about a metallic foreign body about 1 of the orbits. I would recommend a CT angiogram of the head and neck including a repeat CT of the head for further assessment. Would also consider obtaining an up-to-date echocardiogram. Patient should continue with Eliquis and daily low- dose aspirin. Would also continue with atorvastatin. Systolic blood pressure goal 140 to 160 mmHg at this time. Consultations with PT/OT/speech therapy. Patient will likely need inpatient rehabilitation. Please contact me if I may be of further assistance. History of Present Illness Reason for Consultation: Strokelike symptoms Requesting Physician: Марина Gunter DO Attending Physician: Doc Salgado DO History of Present Illness The patient is an 83-year-old male with a chief complaint of dizziness and slurred speech that began acutely yesterday afternoon while driving home from a baseball game with his son. He had some associated weakness of the legs, left greater than right and some drooling as well. He denies associated diplopia or headache. He does complain of a numb, heavy feeling affecting the left leg as well which seems to be new. His slurred speech and feeling of left leg weakness have persisted this morning although the dizziness has resolved. Past medical history notable for atrial fibrillation, anticoagulation, hypertension, and type 2 diabetes mellitus complicated by a diabetic peripheral neuropathy. He also takes a daily low-dose aspirin. Patient denies a family history of stroke in ei ther parent. Allergies Allergy/AdvReac Type Severity Reaction Status Date / Time oxycodone AdvReac Mild NAUSEA/VOMI Verified 01/09/19 17:07 TING tramadol AdvReac Unknown confusion Unverified 01/09/19 17:07 Home Medications Home Medications Medication Instructions Recorded Confirmed Type apixaban [Eliquis] 2.5 mg PO BID 01/09/19 01/09/19 History aspirin [Aspir-81] 81 mg PO DAILY 01/09/19 01/09/19 History atorvastatin 80 mg PO HS 01/09/19 01/09/19 History duloxetine 60 mg PO DAILY 01/09/19 01/09/19 History finasteride 5 mg PO DAILY 01/09/19 01/09/19 History insulin NPH isoph U-100 human 27 - 28 unit SUBCUT BID 01/09/19 01/09/19 History [Novolin N NPH U-100 Insulin] levothyroxine 50 mcg PO DAILY 01/09/19 01/09/19 History lisinopril 5 mg PO DAILY 01/09/19 01/09/19 History magnesium oxide 400 mg PO BID 01/09/19 01/09/19 History omeprazole 40 mg PO QAM 01/09/19 01/09/19 History polyethylene glycol 3350 [Miralax] 17 g PO DAILY 01/09/19 01/09/19 History pregabalin [Lyrica] 50 mg PO TID 01/09/19 01/09/19 History ranitidine HCl 150 mg PO BID 01/09/19 01/09/19 History sennosides [senna] 8.6 mg PO DAILY PRN 01/09/19 01/09/19 History tamsulosin 0.4 mg PO DAILY 01/09/19 01/09/19 History Patient History Medical History DM type 2 (diabetes mellitus, type 2) GERD (gastroesophageal reflux disease) HTN (hypertension) Hyperlipidemia Hypothyroid Neuropathy Social History Preferred Language: Kiswahili Communication Ability: Effective Beliefs That Will Affect Care: None Current Living Situation: Family Current Living Situation Comment: son sherie milan and daughter in law Feels Safe at Home: Yes Smoking Status: Never smoker Hx Alcohol Use: No Hx Substance Use: No Review of Systems Constitutional: no fever and no chills Eyes: no blind spots and no diplopia Ear, Nose, Mouth, Throat: Chronic hearing loss Respiratory: no cough and no dyspnea Cardiovascular: no chest pain and no palpitations Gastrointestinal: no nausea and no vomiting Genitourinary: no dysuria Musculoskeletal: no myalgia Integumentary: no rash and no lesions Neurologic: as per Subjective / HPI Psychiatric: no depression and no anxiety Hematologic / Lymphatic: + easy bleeding Physical Exam Physical Exam: The patient is a well-developed, well-nourished elderly male. He is alert and fully oriented. Recent and remote memory intact. Attention and concentration normal. Patient is able to name objects and repeat phrases. Speech is moderately dysarthric, however, primarily glottal dysarthria. Patient exhibits an age-appropriate fund of knowledge and normal comprehension of vocabulary. Visual lange full to confrontation. Visual acuity normal. Pupils equal round react to light and accommodation. Eye movements normal. There are a few beats of gaze evoked nystagmus to the right. No ophthalmoplegia. Facial sensation intact bilaterally. There is perhaps slight flattening of the left nasolabial fold. Hearing diminished to finger rub bilaterally. Palate elevates to midline. Shoulder shrug intact. Tongue protrudes to midline. However, the patient tends to keep his tongue slightly protuberant from the mouth. The tongue does not appear swollen. There are no lacerations. There is a length dependent sensory loss in all 4 limbs with a superimposed greater deficit affecting the left lower extremity to vibration and temperature. There is slight dysmetria [id number] on the right as well as some associated impairment of fine finger movements for the right hand. There is no pronator drift with either upper limb. There is subtle dysmetria with [id number] on the left. [id number]-[id number] on the left normal, [id number] on the right normal. Ophthalmoscopic examination reveals normal-appearing optic disks and posterior segments. No papilledema or hemorrhages. The sclera of the right eye appears injected. Carotid pulses normal bilaterally, no bruits to auscultation. Gait and station not tested due to safety concerns. Patient exhibits intact muscle strength for all 4 limbs proximally and distally. No obvious hemiparesis, paraparesis, or monoparesis. Muscle tone normal throughout. No atrophy. No abnormal movements observed. Results & Data Vital Signs (Past 12 Hours) Vital Signs Temp Pulse Pulse Resp BP Pulse Ox 01/10/19 07:05 36.7 C 72 19 159/98 H 92 01/10/19 04:04 36.8 C 65 18 170/100 H 98 01/09/19 23:37 36.5 C 69 20 171/93 H 95 01/09/19 21:57 71 Laboratory Results Recent labs reviewed. WBC 6.85, hemoglobin 17.5, platelet count 100, sodium 139, potassium 4.4, BUN 20, creatinine 1.74, glucose 99, calcium 8.9, troponin less than 0.015, lipid panel reveals elevation of triglycerides at 195. Diagnostic Findings A CT of the head revealed an old lacunar infarct in the right basal ganglia and an old cortical infarct in the anterolateral right temporal lobe. There is chronic small vessel ischemic disease. No hemorrhage. No obvious acute abnormality. No significant change compared with the previous CT done in October 2017. I reviewed the images and radiology interpretation of this test and agree. An MRI of the brain was attempted although the study was aborted as there was concern for a potential metallic fragment around one of the globes. An electrocardiogram reveals atrial fibrillation, 75 bpm.
[2019-01-10] MEDS ORDERED: OPTIRAY 320 125ml IV PRN (10:47)
--- NOTE | 2019-01-10 11:14 | CT Scan Report ---
CT ANGIOGRAPHY OF THE NECK WITH CONTRAST CLINICAL HISTORY: Brainstem stroke. COMPARISON STUDY: Carotid ultrasound May 04, 2014. Technique: CT angiography of the carotid and vertebral arteries was obtained using OptiraGevo 320 IV and 3D reconstruction on an independent workstation. NASCET criteria was utilized. Automated exposure c ontrol was utilized for the study. A dose lowering technique was utilized adhering to the principles of ALARA. Findings: Please note that the CTA of the head will be reported separately. There is mild plaque with in the bilateral proximal internal carotid arteries without significant stenosis. There is no dissect ion within the major vessels of the neck. The right vertebral artery is dominant. There is moderate p laque within the right vertebral artery without significant stenosis. The left vertebral artery is di minutive. There is apparent short segment severe stenosis versus occlusion of the proximal intracrani al portion of the left vertebral artery. Alternatively, this could be due to branching of this small vessel. In addition, there is apparent cutoff of the left posterior inferior cerebellar artery. No ce rvical spine fracture is present. Lung apices are clear. There is medialization the right vocal cord. IMPRESSION: 1. Mild atherosclerotic plaque within the proximal bilateral internal carotid arteries without signif icant stenosis. 2. Moderate plaque within the right vertebral artery without significant stenosis. Dominant, patent r ight vertebral artery. 3. Diminutive left vertebral artery. Apparent short segment severe stenosis versus occlusion of the p roximal intracranial portion of the left vertebral artery. Alternatively, this finding could be due t o branching of this small vessel. In addition, suspected abrupt cut off of the left posterior inferio r cerebellar artery. Electronically signed by: Daniel Boyer M.D. 01/10/2019 11:12 AM
--- NOTE | 2019-01-10 11:20 | CT Scan Report ---
CTA ANGIOGRAPHY OF THE HEAD CLINICAL HISTORY: Brainstem stroke. COMPARISON STUDY: Head CT January 09, 2019 TECHNIQUE: Helical axial images of the head were obtained following uneventful intravenous administr ation of 75 cc of Optiray 320. Automated exposure control was utilized for the study. A dose loweri ng technique was utilized adhering to the principles of ALARA. CT DOSE: 607.60 mGy.cm FINDINGS: Encephalomalacia within the right temporal lobe is noted. Bilateral mastoid air cells are p artially opacified. This is unchanged. There is mild ethmoid sinus mucosal thickening. No acute intra cranial hemorrhage, midline shift or mass effect is present. The bilateral M1, M2, A1 and A2 segments are patent. There is moderate stenosis of the proximal left A2 segments. Noted made of a diminutive left vertebral artery. Apparent short segment severe stenosis versus occlusion of the proximal intra cranial portion of the left vertebral artery. Alternatively, this finding could be due to branching o f this small vessel. In addition, there is suspected abrupt cut off of the left posterior inferior ce rebellar artery. Otherwise, the posterior circulation is intact. There is moderate stenosis of the ri ght P1 segment. No intracranial aneurysm is identified. IMPRESSION: 1. Diminutive left vertebral artery. Apparent short segment severe stenosis versus occlusion of the p roximal intracranial portion of the left vertebral artery. Alternatively, this finding could be due t o branching of this small vessel. In addition, suspected abrupt cut off of the left posterior inferio r cerebellar artery. 2. Multiple intracranial stenoses, including moderate stenosis of the right P1 and left A2 segments. Electronically signed by: Daniel Boyer M.D. 01/10/2019 11:18 AM
[2019-01-10] MEDS: PREGABALIN 50 MG CAP PO SCH ×3 (11:53→20:12)
--- NOTE | 2019-01-10 13:49 | Hospitalist Progress Note ---
Date of Service January 10, 2019 Assessment & Plan (1) Stroke-like symptoms: - Suspect possible brain stem infarct - unable to complete MRI due to possible metal object - Head CT with age-related volume loss, chronic small vessel ischemic change, old lacunar infarct of R basal ganglia and old cortical infarct in anterolateral R temporal lobe unchanged; no acute process - Head/Neck CTA - mild plaque within b/l proximal internal carotid arteries without significant stenosis, no dissection within neck vessels, moderate plaque within R vertebral artery without significant stenosis, L vertebral artery is diminuitive with possible short segment severe stenosis vs occlusion of prox. intracranial portion of L vertebral artery vs branching, apparent cutoff of L posterior inferior cerebellar artery; encephalomalacia within R temporal lobe, multiple intracranial stenoses - moderate stenosis of R P1 and L A2 segments - Will plan to repeat Head CT at 24 hour skyler from initial given inability to perform MRI - likely ischemic given plaques but does have A Fib - Echo - unchanged from previous - EF 55-60%, mild LVH, aortic valve sclerosis moderate w/o aortic valvular stenosis - PT/OT/Speech; Stroke protocol - Lipid panel completed - elevated triglycerides; LDL > 100 - can trial Zetia 10 mg daily to reduce LDL to below 100 given recurrent CVA - ASA 81 mg daily, Atorvastatin 80 mg daily - Neuro following - appreciate input Present on Admission?: Yes (2) Chest pain: - RESOLVED - H/O CAD S/P CABG - Troponins negative; no ischemic changes on EKG; echo is unchanged Present on Admission?: Yes (3) ARF (acute renal failure): - Cr elevated at 1.9 on admission and trending down - currently at 1.75; appears baseline is around 1.3-1.5 Present on Admission?: Yes (4) Hypertension: - Some HTN initially - goal BP around 140-160 systolic per neuro - Given improvement with renal function will continue home Lisinopril 5 mg daily - if renal function worsens will hold Present on Admission?: Yes (5) Afib: - Rate controlled - Continue Eliquis 2.5 mg BID; currently not on a rate controlling medication Present on Admission?: Yes (6) Neuropathy: - Continues to have neuropathic issues - should be addressed pending stabilization of acute neurological symptoms - Continue Cymbalta 60 mg daily and Pregabalin 50 mg TID Present on Admission?: Yes (7) Hypothyroid: - STABLE - Levothyroxine 50 mcg daily Present on Admission?: Yes (8) Hyperlipidemia: - Continue Atorvastatin Present on Admission?: Yes (9) GERD (gastroesophageal reflux disease): - STABLE - Ranitidine 150 mg BID and Protonix 40 mg daily Present on Admission?: Yes (10) DM type 2 (diabetes mellitus, type 2): - A1c 6.2 (October 2018) and a repeat is pending - Will cover with SSI - given age and normal A1c may benefit from loosening of home coverage to prevent hypoglycemia Present on Admission?: Yes (11) DVT prophylaxis: Eliquis Disposition: Plan for rehab to [facility] - like D/C tomorrow to rehab Subjective Mr. Martinez states he feels well today. Continues to have intermittent slurred speech and some delayed responses/word finding but minimal. States his LLE feels heavy and states his neuropathy is acting up as well. There is concern about a brainstem stroke as unsteadiness is ongoing. Unable to complete MRI and CTAs and repeat head CT ordered Review of Systems Constitutional: no fever and no chills Eyes: no worsening vision Ear, Nose, Mouth, Throat: no dysphagia Respiratory: no cough and no dyspnea Cardiovascular: no chest pain, no palpitations, no lightheadedness and no edema Gastrointestinal: no abdominal pain, no nausea, no vomiting, no constipation and no diarrhea/loose stools Genitourinary: no dysuria Musculoskeletal: no stiffness and no body aches Integumentary: no rash Neurologic: + gait abnormality, + unsteadiness, + tingling and + numbness; no headache(s) Physical Exam Constitutional: WD/WN, vitals as above Eyes: + anicteric sclerae ENMT: Ears: + hearing impairment Neck: trachea midline Respiratory: normal respiratory effort, lungs clear to auscultation Cardiovascular: Rate/Rhythm: + irregularly irregular Gastrointestinal (Abdomen): Inspection/Auscultation: normal bowel sounds Percussion/Palpation: abdomen soft; abdomen nontender Musculoskeletal: Head/Neck/Chest: normocephalic, head atraumatic and neck supple Skin: no rashes, warm and dry Neurologic: moves all extremities Speech / Cognition: + abnormal speech Motor/Sensory: no tremor Psychiatric: A+Ox3, euthymic affect Results & Data Vital Signs (Past 12 Hours) Vital Signs Temp Pulse Resp BP Pulse Ox Pulse Ox 01/10/19 10:43 36.4 C L 71 19 140/91 94 01/10/19 10:06 92 01/10/19 09:58 92 01/10/19 07:05 36.7 C 72 19 159/98 H 92 01/10/19 04:04 36.8 C 65 18 170/100 H 98 PG Care Time/CCT Total # of Minutes Spent Total Time Spent with Patient: Total time spent is greater than 50% in coordination of care (as documented) at patient's floor/unit and/or counseling patient:
--- NOTE | 2019-01-10 18:26 | CT Scan Report ---
CT OF THE HEAD WITHOUT CONTRAST CLINICAL HISTORY: CVA Symptoms; unable to perform MRI; brain stem? COMPARISON STUDY: Head CT January 09, 2019. CTA of the head performed earlier today. CT DOSE: 614.27 mGy.cm TECHNIQUE: Helical axial images of the head were obtained without IV contrast. Automated exposure con trol was utilized for the study. A dose lowering technique was utilized adhering to the principles o f ALARA. FINDINGS: Intravascular contrast is from recent CTA. No acute intracranial hemorrhage, midline shift or mass effect is present. Ventricular system is normal. Basilar cisterns are patent. White matter hy podensity suggests small vessel disease. There are no findings to suggest acute dural sinus thrombosi s or acute territorial infarct. The appearance of the brain is unchanged. Encephalomalacia within the anterior right temporal lobe is chronic. There are no significant calvarial abnormalities. Bilateral mastoid air cells are partially opacified. This is likely chronic. Ethmoid sinus mucosal thickening is noted. IMPRESSION: No acute intracranial findings. No change in appearance of the brain. Electronically signed by: Daniel Boyer M.D. 01/10/2019 6:24 PM
[2019-01-10] MEDS: ATORVASTATIN 40 MG TAB PO SCH (20:01)
[2019-01-11] MEDS: LISINOPRIL 5 MG TAB PO SCH (04:20)
[2019-01-11 06:16] LABS: Estimated Average Glucose 140 mg/dl; Hemoglobin A1C 6.5 % (4.5-5.6)
[2019-01-11] MEDS: LEVOTHYROXINE SODIUM 50 MCG TABLET PO SCH (07:09)
[2019-01-11] MEDS: APIXABAN 2.5 MG TAB PO SCH ×2 (08:04→20:29)
[2019-01-11] MEDS: FINASTERIDE 5 MG TAB PO SCH (08:04)
[2019-01-11] MEDS: MAGNESIUM OXIDE 400 MG TAB PO SCH ×2 (08:04→20:29)
[2019-01-11] MEDS: ASPIRIN 81 MG ECTAB PO SCH (08:04)
[2019-01-11] MEDS: DULOXETINE HCL 60 MG CAP PO SCH (08:04)
[2019-01-11] MEDS: PANTOprazole 40 MG TAB PO SCH (08:04)
[2019-01-11] MEDS: EZETIMIBE 10 MG TABLET PO SCH (08:04)
[2019-01-11] MEDS: TAMSULOSIN HCL 0.4 MG CAP PO SCH (08:04)
[2019-01-11] MEDS: POLYETHYLENE (MIRALAX) 17 GM PACK PO SCH (08:05)
[2019-01-11] MEDS: INSULIN ASPART 100 UNITS/ML 3 ML PEN SC SCH ×4 (08:06→20:30)
[2019-01-11] MEDS: PREGABALIN 50 MG CAP PO SCH ×3 (08:10→20:28)
--- NOTE | 2019-01-11 09:36 | Neurology Progress Note ---
Date of Service January 11, 2019 Assessment & Plan (1) Brainstem stroke: I continue to suspect this patient has had a recent brainstem stroke. He continues to exhibit at least a moderate degree of dysarthria. There appears to be evidence of some paralysis of the right vocal cord as well on imaging. However, I am uncertain if this finding would be directly related to a brainstem stroke or not. He does have some subtle weakness of the right lower facial musculature and subtle weakness of the right upper limb which may or may not be acute issues. This patient has been taking Eliquis, daily low-dose aspirin, and atorvastatin. No indication to change this therapy. It looks like he has a metallic foreign body affecting the right globe or orbit. The right eye is rather injected and is causing the patient some irritation. He should probably have an ophthalmologic assessment or at least have the eye appropriately examined while in the hospital. Subjective Follow-up for suspected brainstem stroke The patient is an 83-year-old male with a history of dizziness, dysarthria, and weakness of the legs that began acutely on January 09. His dizziness has resolved although he continues to complain of slurred speech and a feeling of weakness in his legs. He has been able to ambulate with assistance in his room, however. He denies experiencing any diplopia or difficulty swallowing. He does have some persistent redness and irritation of the right eye. A brain MRI could not be completed as there was some concern for a metallic foreign body around the right eye. He did complete the requested follow-up CT angiography of the head and neck which revealed a severe stenosis versus occlusion of the left vertebral artery. There are also some findings suggestive of right vocal cord paralysis. Review of Systems Constitutional: no fever Eyes: as per Subjective / HPI and + eye pain; no blind spots and no diplopia Neurologic: as per Subjective / HPI and + unsteadiness Physical Exam Physical Exam: The patient is alert and fully oriented. Recent and remote memory intact. Attention and concentration normal. Patient continues to exhibit moderately dysarthric speech. He is able to name objects and repeat phrases. Patient exhibits an age-appropriate fund of knowledge and normal vocab ulary. Visual lange full to confrontation. Visual acuity normal. Pupils equal round react to light and accommodation. Eye movements normal. The right eye is injected. There is no nystagmus. Facial sensation intact. There is mild flattening of the right nasolabial fold. Hearing intact. Palate elevates to midline. Shoulder shrug intact. Tongue protrudes to midline. Sensation intact in all 4 limbs. There is mild dysmetria [id number] on the right. Patient orbits around the right arm with arm roll maneuver. Gait and station normal. Patient exhibits normal muscle strength and tone in all 4 limbs. No atrophy. No abnormal movements observed. Results & Data Vital Signs (Past 12 Hours) Vital Signs Temp Pulse Resp BP Pulse Ox 01/11/19 07:10 36.5 C 73 18 131/85 96 01/11/19 03:59 36.6 C 64 18 175/101 H 91 01/10/19 23:56 150/92 H 01/10/19 23:06 37.0 C 75 20 176/90 H 96 Diagnostic Findings A CTA of the head completed yesterday revealed a diminutive left vertebral artery with apparent short segment severe stenosis versus occlusion of the proximal intracranial portion of the left vertebral artery. There are multiple intracranial stenoses noted as well. A CTA of the neck revealed mild atherosclerotic plaque involving the proximal bilateral internal carotid arteries, moderate plaque within the right vertebral artery and a diminutive left vertebral artery as described above. There is also notation of medialization of the right vocal cord potentially consistent with right vocal cord paralysis. An echocardiogram completed yesterday reveals mild asymmetric left ventricular hypertrophy, a mildly dilated left atrium, and moderate aortic valve sclerosis. No significant change compared with the previous echocardiogram done in October 2017.
--- NOTE | 2019-01-11 11:44 | Hospitalist Progress Note ---
Date of Service January 11, 2019 Assessment & Plan (1) Brainstem stroke: suspected -- based on clinical course and exam findings. unfortunately cannot obtain confirmatory MRI brain due to metal fragment near his eye. symptoms/signs - mild dysarthria, RLE weakness. neurology consult appreciated; recommendations - high intensity statin, asa/eliquis for secondary prevention. appreciate PT,OT, speech evals. inpatient rehab recommended. Of note - CTA head/neck with multiple stenoses - continue statin, asa, etc. Present on Admission?: Yes (2) Chest pain: No further symptoms. Work-up - Troponins, EKG, and echo normal and without suggestion of ischemia. Present on Admission?: Yes (3) ARF (acute renal failure): Peak Cr 1.9 repeat BMP in am for stability Present on Admission?: Yes (4) Hypertension: Controlled at this time continue current meds (5) Afib: Continue Eliquis 2.5 mg BID; currently not on a rate controlling medications (6) Neuropathy: Continue Cymbalta 60 mg daily and Pregabalin 50 mg TID (7) Hypothyroid: TSH 10/2018 wnl. Cont Levothyroxine 50 mcg daily (8) Hyperlipidemia: Continue Atorvastatin high-intensity (9) GERD (gastroesophageal reflux disease): Cont Ranitidine 150 mg BID and Protonix 40 mg daily (10) DM type 2 (diabetes mellitus, type 2): Control acceptable at this time with SSI A1C 6.5% (11) DVT prophylaxis: Eliquis BID awaiting auth for inpatient rehab Subjective tele - rate controlled a fib overnight. patient reports mild right leg weakness and staff confirm imbalance w/ walking. patient denies any right arm weakness. mild dysarthria still present. denies dysphagia. no recurrent chest pain. Review of Systems Constitutional: no fever, no chills and no anorexia Respiratory: no cough and no dyspnea Cardiovascular: no chest pain Gastrointestinal: no abdominal pain Physical Exam Constitutional: well developed and well nourished; no acute distress mild dysarthria present; no obvious facial droop ENMT: external ear and nose normal, oropharynx normal Respiratory: normal respiratory effort, lungs clear to auscultation Cardiovascular: Rate/Rhythm: regular rate and + irregularly irregular Heart Sounds: normal S1 and normal S2; no murmur Vessels: posterior tibial pulses present and dorsalis pedis pulses present; no JVD Extremities: no edema Gastrointestinal (Abdomen): normal bowel sounds, soft, nontender, no hepatosplenomegaly Neurologic: + focal motor deficit (minimal, RLE; RUE/LUE with symmetric strength; no facial droop) Speech / Cognition: + abnormal speech (mild dysarthria) Results & Data Vital Signs (Past 12 Hours) Vital Signs Temp Pulse Resp BP Pulse Ox 01/11/19 07:10 36.5 C 73 18 131/85 96 01/11/19 03:59 36.6 C 64 18 175/101 H 91 01/10/19 23:56 150/92 H Laboratory Results Laboratory Results - last 24 hr 01/09/19 01/10/19 01/10/19 15:26 16:19 19:57 POC Glucose 121 H 207 H Estimat Average Glucose 140 Hemoglobin A1c 6.5 H 01/11/19 01/11/19 07:43 11:29 POC Glucose 115 H 159 H Estimat Average Glucose Hemoglobin A1c PG Care Time/CCT Total # of Minutes Spent Total Time Spent with Patient: Total time spent is greater than 50% in coordination of care (as documented) at patient's floor/unit and/or counseling patient: (1) Chest pain Chest pain type: unspecified Qualified Code(s): R07.9 - Chest pain, unspecified (2) ARF (acute renal failure) Acute renal failure type: unspecified Qualified Code(s): N17.9 - Acute kidney failure, unspecified (3) Hypertension Hypertension type: essential hypertension Qualified Code(s): I10 - Essential (primary) hypertension (4) Afib Atrial fibrillation type: chronic Qualified Code(s): I48.2 - Chronic atrial fibrillation (5) Hypothyroid Hypothyroidism type: acquired Qualified Code(s): E03.9 - Hypothyroidism, unspecified (6) Hyperlipidemia Hyperlipidemia type: mixed hyperlipidemia Qualified Code(s): E78.2 - Mixed hyperlipidemia (7) GERD (gastroesophageal reflux disease) Esophagitis presence: esophagitis presence not specified Qualified Code(s): K21.9 - Gastro-esophageal reflux disease without esophagitis (8) DM type 2 (diabetes mellitus, type 2) Diabetes mellitus long term care pharmacist insulin use: with long term care pharmacist use Diabetes mellitus complication status: without complication Qualified Code(s): E11.9 - Type 2 diabetes mellitus without complications; Z79.4 - intermission coordinator (current) use of insulin
[2019-01-11] MEDS: ATORVASTATIN 40 MG TAB PO SCH (20:29)
[2019-01-12] MEDS: LEVOTHYROXINE SODIUM 50 MCG TABLET PO SCH (05:56)
[2019-01-12 07:22] LABS: Hematocrit (blood only) 47.2 % (42-52); Hemoglobin 16.6 g/dL (14.0-18.0); Mean Corpuscular Hemoglobin 29.8 pg (25-34); Mean Corpuscular Hgb Conc 35.2 g/dL (32-36); Mean Corpuscular Volume 84.7 fL (80-100); RDW Coefficient of Variation 14.1 % (11.5-14.5); RDW Standard Deviation 43.4 fL (36.4-46.3); Red Blood Count 5.57 M/uL (4.7-6.1); White Blood Count 6.29 K/uL (4.8-10.8)
[2019-01-12 07:25] LABS: Mean Platelet Volume 11.8 fL (7.4-10.4); Platelet Count 87 K/uL (130-400)
[2019-01-12 07:52] LABS: BUN Creatinine Ratio 16.3 (10-20); Calcium 9.2 mg/dl (8.5-10.1); Creatinine Clr Calc Pharmacy 41.4 ml/min; Est GFR (Non-African American) 41.4; Potassium 4.5 mmol/L (3.5-5.1)
[2019-01-12 08:02] LABS: Folate (Folic Acid) 7.72 ng/ml (>5.38)
[2019-01-12 08:12] LABS: Basophils # (auto) 0.02 K/uL (0-0.2); Basophils % (auto) 0.3 %; Eosinophils # (auto) 0.23 K/uL (0-0.5); Eosinophils % (auto) 3.7 %; Immature Granulocytes # (auto) 0.02 K/uL (0.00-0.02); Immature Granulocytes % (auto) 0.3 %; Lymphocytes # (auto) 1.94 K/uL (1.2-3.4); Lymphocytes % (auto) 30.8 %; Monocytes # (auto) 0.58 K/uL (0.11-0.59); Monocytes % (auto) 9.2 %; Neutrophils % (auto) 55.7 %
[2019-01-12] MEDS: PANTOprazole 40 MG TAB PO SCH (08:16)
[2019-01-12] MEDS: POLYETHYLENE (MIRALAX) 17 GM PACK PO SCH (08:17)
[2019-01-12] MEDS: LISINOPRIL 5 MG TAB PO SCH (08:17)
[2019-01-12] MEDS: FINASTERIDE 5 MG TAB PO SCH (08:17)
[2019-01-12] MEDS: APIXABAN 2.5 MG TAB PO SCH ×2 (08:17→20:35)
[2019-01-12] MEDS: DULOXETINE HCL 60 MG CAP PO SCH (08:17)
[2019-01-12] MEDS: ASPIRIN 81 MG ECTAB PO SCH (08:17)
[2019-01-12] MEDS: TAMSULOSIN HCL 0.4 MG CAP PO SCH (08:17)
[2019-01-12] MEDS: MAGNESIUM OXIDE 400 MG TAB PO SCH ×2 (08:17→20:34)
[2019-01-12] MEDS: EZETIMIBE 10 MG TABLET PO SCH (08:17)
[2019-01-12] MEDS: PREGABALIN 50 MG CAP PO SCH ×3 (08:20→20:40)
[2019-01-12] MEDS: INSULIN ASPART 100 UNITS/ML 3 ML PEN SC SCH ×4 (08:22→20:33)
--- NOTE | 2019-01-12 13:55 | XRay Report ---
XR knee LT 2V routine CLINICAL HISTORY: pain, locking, eval for OA COMPARISON: Left knee radiographs July 09, 2016. FINDINGS: Alignment of the left knee is anatomic. There is no fracture or joint effusion. Surgical c lips are again noted medial to the proximal left tibia. There is extensive vascular calcification. Sp urring of the superior pole of the patella is noted. Joint spaces are preserved. There is mild osteop hytosis of the left knee. IMPRESSION: 1. No acute fracture or joint effusion. 2. Mild left knee osteoarthritis. Electronically signed by: Daniel Boyer M.D. 01/12/2019 1:53 PM
--- NOTE | 2019-01-12 13:55 | XRay Report ---
XR orbits for MRI HISTORY: Pre-MRI pre-MRI screening. COMPARISON: None. FINDINGS: There are no radiopaque foreign bodies identified within the orbits. And metallic sutures i dentified lateral aspect right orbital margin. There is a small subcutaneous foreign body anterior to the inferior lip IMPRESSION: 1. No evidence for radiopaque foreign body within the orbits. 2. Metallic suture occupying the right lateral orbital margin. 3. Subcutaneous metallic foreign body anterior aspect right inferior lip The above report was generated using voice recognition software. It may contain grammatical, syntax or spelling errors. Electronically signed by: Venancio Palma M.D. 01/12/2019 1:53 PM
--- NOTE | 2019-01-12 13:58 | XRay Report ---
XR lumbar spine 2-3V CLINICAL HISTORY: 83 years-old Male presenting with leg weakness; eval for DJD of l-spine. TECHNIQUE: Frontal, lateral, and coned-down lateral views of the lumbar spine were obtained. COMPARISON: 01/09/2016. FINDINGS: Straightening of normal lumbar lordosis. No scoliosis. Flowing anterior osteophytosis in the lower th oracic spine likely indicates diffuse idiopathic skeletal hyperostosis. Vertebral bodies maintain nor mal height and alignment. Intervertebral disc heights preserved. Osseous neural foraminal narrowing p resent to varying degrees from L2-3 through L5-S1. No compression deformity or subluxation. Atherosclerotic calcifications. Nonobstructive bowel gas pattern with mild stool burden throughout th e colon. IMPRESSION: 1. Multilevel degenerative change with suspected diffuse idiopathic skeletal hyperostosis in the low er thoracic spine. 2. No radiographic evidence of acute osseous injury of the lumbar spine. 3. Suspected multilevel osseous neural foraminal narrowing. Electronically signed by: Pancho Alvarez M.D. 01/12/2019 1:56 PM
--- NOTE | 2019-01-12 14:00 | XRay Report ---
XR knee RT 2V routine CLINICAL HISTORY: pain, locking, eval OA pain COMPARISON: 07/09/2016 DISCUSSION: Mild degenerative change all major joint compartments. Minimal chondrocalcinosis. Moderat e osteophytic formation superior patella. There is no evidence for soft tissue swelling. IMPRESSION: Mild degenerative change all major joint compartments. Mild chondrocalcinosis. The above report was generated using voice recognition software. It may contain grammatical, syntax or spelling errors. Electronically signed by: Venancio Palma M.D. 01/12/2019 1:59 PM
[2019-01-12] MEDS: DICLOFENAC SOD 1% GEL 100 GM TUBE EXT SCH ×3 (14:20→20:34)
[2019-01-12] MEDS ORDERED: SODIUM CHLORIDE 0.9% 1000ML 1,000 ML IV SCH (16:00)
--- NOTE | 2019-01-12 16:26 | CT Scan Report ---
CT head/brain wo con CT DOSE: 614.27 mGy.cm HISTORY: Mental status change suspected L CVA (RLE weakness) TECHNIQUE: Multiaxial CT images of the head were performed without the use of intravenous contrast. A dose lowering technique was utilized adhering to the principles of ALARA. Comparison: 01/10/2019 Findings: The paranasal sinuses and mastoid air cells are clear. No significant change compared to th e prior study. Unchanged findings of age-related atrophy and chronic small vessel change. No evidence for acute intracranial hemorrhage. No midline shift. Findings of focal old right occipita l encephalomalacia. Impression: Chronic and age-related change. No acute intracranial abnormality. The above report was generated using voice recognition software. It may contain grammatical, syntax or spelling errors. Electronically signed by: Venancio Palma M.D. 01/12/2019 4:24 PM
--- NOTE | 2019-01-12 16:31 | CT Scan Report ---
CT lumbar spine wo con CT DOSE: 748.66 mGy.cm HISTORY: Pain. Neuropathy. b/l lower ext weakness TECHNIQUE: Multiaxial CT images of the lumbar spine were performed and reformatted in the sagittal an d coronal plane without the use of contrast. A dose lowering technique was utilized adhering to the principles of ALARA. COMPARISON: None. FINDINGS: No fractures. No subluxation. Paraspinal soft tissues are unremarkable. Mild degenerative d isc change throughout. Generalized osteopenia. No evidence for compression deformity. Anterior osteophyte changes are noted throughout. No major compromise of the spinal canal. No significant subluxation. IMPRESSION: Mild to moderate degenerative disc change throughout. Osteopenia. No major compromise of the spinal c anal is appreciated. The above report was generated using voice recognition software. It may contain grammatical, syntax or spelling errors. Electronically signed by: Venancio Palma M.D. 01/12/2019 4:29 PM
[2019-01-12] MEDS: ATORVASTATIN 40 MG TAB PO SCH (20:35)
--- NOTE | 2019-01-12 20:51 | Hospitalist Progress Note ---
Date of Service January 12, 2019 Assessment & Plan (1) Orthostatic hypotension: Likely cause of dizziness at home as well as here. Acute kidney injury likely was volume depletion. Will hydrate again with NS and recheck orthostatics in am. HOLD low-dose ELIAZAR and HOLD alpha baldemar. (2) Altered mental status: Suspect encephalopathy from acute stroke. Should improve with time. Supportive care. No evidence of any infectious process. 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 unfortunately cannot obtain confirmatory MRI brain due to metal fragment in face, etc. symptoms/signs - mild dysarthria, RLE weakness, right-facial droop. neurology consult appreciated; recommendations - high intensity statin, asa/eliquis for secondary prevention. appreciate PT,OT, speech evals. inpatient rehab recommended. Of note - CTA head/neck with multiple stenoses - continue statin, asa, etc. Repeat head CT today stable. L-spine CT with moderate DJD but open spinal canal; DJD unlikely contributing to RLE weakness. Current, suspected stroke is in the setting of prior strokes as seen on imaging. Present on Admission?: Yes (4) Chest pain: No further symptoms. Work-up - Troponins, EKG, and echo normal and without suggestion of ischemia. (5) ARF (acute renal failure): Peak Cr 1.9 repeat BMP shows improving Cr Hydrating again overnight, repeat BMP am HOLD ELIAZAR (6) Hypertension: Controlled but in fact has orthostasis HOLD ELIAZAR HOLD alpha baldemar (7) Afib: Continue Eliquis 2.5 mg BID; currently not on a rate controlling medications Controlled (8) Neuropathy: Continue Cymbalta 60 mg daily and Pregabalin 50 mg TID Diabetic polyneuropathy? (9) Hypothyroid: TSH 10/2018 wnl. Cont Levothyroxine 50 mcg daily (10) Hyperlipidemia: Continue Atorvastatin high-intensity (11) GERD (gastroesophageal reflux disease): Cont Ranitidine 150 mg BID and Protonix 40 mg daily (12) DM type 2 (diabetes mellitus, type 2): Control acceptable at this time with SSI A1C 6.5% (13) DVT prophylaxis: Eliquis BID (14) Subconjunctival hemorrhage of right eye: cause? trauma pre-hospital? coughing fit leading to broken blood vessel? other? no Rx needed will resolve with time (15) Foreign body in lip: as noted on orbit x-rays chronicity? 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 no Rx needed was a linda - could have been from occupational exposure does have metal suture in right eye - patient recalls some sort of injury to right eye years ago requiring some form of surgical intervention (16) Osteoarthritis of both knees: voltaren gel 4gm qid to RIGHT knee patient reports locking of right knee - this is likely from OA his stroke coupled with OA of knee leading to gait disturbance (17) DJD (degenerative joint disease), lumbar: spinal canal w/o significant stenosis based on CT l-spine today has no l-spine pain I do not suspect RLE weakness is from L-spine issue B12 level noted to be normal (18) Discharge planning issues: spoke with son twice today -- in AM, then PM answered all questions addressed his concerns as best as possible reviewed all test results he asked about his father's complaint of yellow line across the TV I explained his father was seeing the reflection of the wall light from behind the bed being reflected onto the TV I do not think he is actually having visual distortion or diplopia reassurance given re: subconjunctival hemorrhage total time today over several visits to bedside, multiple phone calls, reviewing all imaging studies, ordering fluids, etc -- 75 minutes Subjective patient with dizziness/lightheadedness upon standing. he also c/o right leg weakness with trying to walking as well as his right knee locking up with ambulation. he has noted a "yellow line" when watching TV; when he turns the light off it goes away. his vision is otherwise clear. denies any right eye pain. staff note intermittent confusion. tele stable overnight with rate controlled a. fib. denies chest pain. eating well. son updated by phone twice today (AM, and PM). Review of Systems Constitutional: no fever Respiratory: no cough and no dyspnea Cardiovascular: no chest pain Gastrointestinal: no abdominal pain Musculoskeletal: + joint pain Neurologic: as per Subjective / HPI and + localized weakness Physical Exam Constitutional: well developed and well nourished; no acute distress speech more clear today Eyes: PERRL subconjunctival hemorrhage, right eye - lateral aspect of sclera; mild conjunctival injection right eye; no foreign body appreciated; left eye sclera and conjunctiva normal ENMT: external ear and nose normal, oropharynx normal Respiratory: normal respiratory effort, lungs clear to auscultation Cardiovascular: Rate/Rhythm: regular rate and + irregularly irregular Heart Sounds: normal S1 and normal S2; no murmur Vessels: posterior tibial pulses present and dorsalis pedis pulses present; no JVD Extremities: no edema Gastrointestinal (Abdomen): normal bowel sounds, soft, nontender, no hepatosplenomegaly Musculoskeletal: crepitus b/l knees with passive ROM with mild OA changes noted Neurologic: + focal motor deficit (right leg distal; particularly noticeable with walking) Speech / Cognition: + abnormal speech (mild dysarthria but improved today) Motor/Sensory: no pronator drift minimal facial droop on right Results & Data Vital Signs (Past 12 Hours) Vital Signs Temp Pulse Resp BP Pulse Ox Pulse Ox 01/12/19 19:32 36.5 C 66 20 113/69 98 01/12/19 15:32 36.5 C 66 18 119/71 94 01/12/19 09:00 96 Laboratory Results Laboratory Results - last 24 hr 01/12/19 01/12/19 01/12/19 06:43 06:43 06:43 WBC 6.29 RBC 5.57 Hgb 16.6 Hct 47.2 MCV 84.7 MCH 29.8 MCHC 35.2 RDW Std Deviation 43.4 RDW Coeff of Eben 14.1 Plt Count 87 L MPV 11.8 H Immature Gran % (Auto) 0.3 Neut % (Auto) 55.7 Lymph % (Auto) 30.8 [place] % (Auto) 9.2 Eos % (Auto) 3.7 Baso % (Auto) 0.3 Immature Gran # (Auto) 0.02 Neut # (Auto) 3.50 Lymph # (Auto) 1.94 [place] # (Auto) 0.58 Eos # (Auto) 0.23 Baso # (Auto) 0.02 Sodium 138 Potassium 4.5 Chloride 104 Carbon Dioxide 28 Anion Gap 6.0 BUN 25 H Creatinine 1.53 H Est Cr Clr Drug Dosing 41.4 Est GFR ( Amer) 48.0 Est GFR (Non-Af Amer) 41.4 BUN/Creatinine Ratio 16.3 Glucose 91 POC Glucose Calcium 9.2 Vitamin B12 445 Folate 7.72 01/12/19 01/12/19 01/12/19 07:07 10:54 16:37 WBC RBC Hgb Hct MCV MCH MCHC RDW Std Deviation RDW Coeff of Eben Plt Count MPV Immature Gran % (Auto) Neut % (Auto) Lymph % (Auto) [place] % (Auto) Eos % (Auto) Baso % (Auto) Immature Gran # (Auto) Neut # (Auto) Lymph # (Auto) [place] # (Auto) Eos # (Auto) Baso # (Auto) Sodium Potassium Chloride Carbon Dioxide Anion Gap BUN Creatinine Est Cr Clr Drug Dosing Est GFR ( Amer) Est GFR (Non-Af Amer) BUN/Creatinine Ratio Glucose POC Glucose 97 198 H 173 H Calcium Vitamin B12 Folate 01/12/19 20:30 WBC RBC Hgb Hct MCV MCH MCHC RDW Std Deviation RDW Coeff of Eben Plt Count MPV Immature Gran % (Auto) Neut % (Auto) Lymph % (Auto) [place] % (Auto) Eos % (Auto) Baso % (Auto) Immature Gran # (Auto) Neut # (Auto) Lymph # (Auto) [place] # (Auto) Eos # (Auto) Baso # (Auto) Sodium Potassium Chloride Carbon Dioxide Anion Gap BUN Creatinine Est Cr Clr Drug Dosing Est GFR ( Amer) Est GFR (Non-Af Amer) BUN/Creatinine Ratio Glucose POC Glucose 207 H Calcium Vitamin B12 Folate Diagnostic Findings CT and x-rays l=spine, b/l knee x-rays, CT head, orbit x-rays --- reviewed in detail PG Care Time/CCT Total # of Minutes Spent Total Time Spent with Patient: Total time spent is greater than 50% in coordination of care (as documented) at patient's floor/unit and/or counseling patient: Prolonged Care Time Prolonged Care Time: Yes Total Prolonged Care Time: 75 (1) ARF (acute renal failure) Acute renal failure type: unspecified Qualified Code(s): N17.9 - Acute kidney failure, unspecified (2) DM type 2 (diabetes mellitus, type 2) Diabetes mellitus complication status: without complication Diabetes mellitus custodial insulin use: with custodial use Qualified Code(s): E11.9 - Type 2 diabetes mellitus without complications; 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.4 - 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 of insulin (3) Afib Atrial fibrillation type: chronic Qualified Code(s): I48.2 - Chronic atrial fibrillation (4) Hyperlipidemia Hyperlipidemia type: mixed hyperlipidemia Qualified Code(s): E78.2 - Mixed h yperlipidemia (5) Hypothyroid Hypothyroidism type: acquired Qualified Code(s): E03.9 - Hypothyroidism, unspecified (6) GERD (gastroesophageal reflux disease) Esophagitis presence: esophagitis presence not specified Qualified Code(s): K21.9 - Gastro-esophageal reflux disease without esophagitis (7) Chest pain Chest pain type: unspecified Qualified Code(s): R07.9 - Chest pain, unspecified (8) Hypertension Hypertension type: essential hypertension Qualified Code(s): I10 - Essential (primary) hypertension (9) Foreign body in lip Encounter type: sequela Qualified Code(s): S00.551S - Superficial foreign body of lip, sequela (10) Osteoarthritis of both knees Osteoarthritis type: unspecified Qualified Code(s): M17.0 - Bilateral primary osteoarthritis of knee (11) DJD (degenerative joint disease), lumbar Spinal osteoarthritis complication: unspecified spinal osteoarthritis Qualified Code(s): M47.816 - Spondylosis without myelopathy or radiculopathy, lumbar region (12) Altered mental status Altered mental status type: unspecified Qualified Code(s): R41.82 - Altered mental status, unspecified
[2019-01-13] MEDS: LEVOTHYROXINE SODIUM 50 MCG TABLET PO SCH (06:04)
[2019-01-13 06:49] LABS: BUN Creatinine Ratio 15.6 (10-20); Calcium 8.6 mg/dl (8.5-10.1); Est GFR (African American) 48.4; Est GFR (Non-African American) 41.8; Potassium 4.4 mmol/L (3.5-5.1)
[2019-01-13] MEDS: EZETIMIBE 10 MG TABLET PO SCH (08:05)
[2019-01-13] MEDS: MAGNESIUM OXIDE 400 MG TAB PO SCH ×2 (08:05→20:22)
[2019-01-13] MEDS: APIXABAN 2.5 MG TAB PO SCH ×2 (08:05→20:25)
[2019-01-13] MEDS: ASPIRIN 81 MG ECTAB PO SCH (08:05)
[2019-01-13] MEDS: DULOXETINE HCL 60 MG CAP PO SCH (08:05)
[2019-01-13] MEDS: PANTOprazole 40 MG TAB PO SCH (08:05)
[2019-01-13] MEDS: FINASTERIDE 5 MG TAB PO SCH (08:06)
[2019-01-13] MEDS: DICLOFENAC SOD 1% GEL 100 GM TUBE EXT SCH ×4 (08:07→20:21)
[2019-01-13] MEDS: POLYETHYLENE (MIRALAX) 17 GM PACK PO SCH (08:08)
[2019-01-13] MEDS: PREGABALIN 50 MG CAP PO SCH ×3 (08:08→20:24)
[2019-01-13] MEDS: INSULIN ASPART 100 UNITS/ML 3 ML PEN SC SCH ×4 (08:09→20:23)
--- NOTE | 2019-01-13 12:58 | Hospitalist Progress Note ---
Date of Service January 13, 2019 Assessment & Plan (1) Fall: Patient had urinary urgency, did not ring for the staff, got out of bed, and went to the commode. He voided, and after trying to stand up, his right leg locked, right leg buckled, and he fell to the ground. He did not lose consciousness. He did not have syncope. He thinks he may have hit his head. He denies any pain in any extremity especially the hips, arms, or feet. He does have ongoing right knee pain but this is not new. Tele review- no pauses; a.fib only. Still with orthostasis on orthostatic BP checks. CT head obtained - no ICH. Patient reminded to ring for assistance when he needs to get up. Consider low bed position. Order fall precautions. Present on Admission?: No (2) Right knee pain: had OA on exam and his knee x-rays. there is also suggestion of CPPD on x-rays (pseudogout). today his knee is a bit more swollen and painful. suspect he may have some low-grade pseudogout. poor candidate for NSAIDs by mouth. start prednisone 15mg daily. may continue his voltaren gel. Present on Admission?: No (3) Orthostatic hypotension: Likely cause of dizziness at home as well as here. Acute kidney injury likely was volume depletion. HOLDing low-dose ELIAZAR and alpha baldemar. Despite fluids overnight and holding the above 2 meds he continues with mild orthostasis. Prednisone may help with this. If it persists despite holding BP meds consider midodrine but hopefully will not have to do such. (4) Altered mental status: Suspect encephalopathy from acute stroke. Should improve with time. Supportive care. No evidence of any infectious process. MS seemed better today. 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 unfortunately cannot obtain confirmatory MRI brain due to metal fragment in face, etc. symptoms/signs - mild dysarthria, RLE weakness, right-facial droop. neurology consult appreciated; recommendations - high intensity statin, asa/eliquis for secondary prevention. appreciate PT,OT, speech evals. inpatient rehab recommended. Of note - CTA head/neck with multiple stenoses - continue statin, asa, etc. Repeat head CT yesterday and today stable/unchanged. L-spine CT with moderate DJD but open spinal canal; DJD unlikely contributing to RLE weakness. Current, suspected stroke is in the setting of prior strokes as seen on imaging. (6) Chest pain: No further symptoms. Work-up - Troponins, EKG, and echo normal and without suggestion of ischemia. (7) ARF (acute renal failure): Peak Cr 1.9 hold ELIAZAR Cr stable today (8) Hypertension: Controlled but in fact has orthostasis HOLD ELIAZAR HOLD alpha baldemar (9) Afib: Continue Eliquis 2.5 mg BID; currently not on a rate controlling medications Controlled (10) Neuropathy: Continue Cymbalta 60 mg daily and Pregabalin 50 mg TID Diabetic polyneuropathy? this will contribute to gait issues and fall risk (11) Hypothyroid: TSH 10/2018 wnl. Cont Levothyroxine 50 mcg daily (12) Hyperlipidemia: Continue Atorvastatin high-intensity (13) GERD (gastroesophageal reflux disease): Cont Ranitidine 150 mg BID and Protonix 40 mg daily (14) DM type 2 (diabetes mellitus, type 2): Control acceptable at this time with SSI A1C 6.5% anticipate some increase in BSGs with prednisone (15) DVT prophylaxis: Eliquis BID (16) Subconjunctival hemorrhage of right eye: cause? trauma pre-hospital? coughing fit leading to broken blood vessel? other? regardless no Rx needed; appears to be improving (17) Foreign body in lip: as noted on orbit x-rays chronicity? 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 no Rx needed was a linda - could have been from occupational exposure does have metal suture in right eye - patient recalls some sort of injury to right eye years ago requiring some form of surgical intervention (18) Osteoarthritis of both knees: voltaren gel 4gm qid to RIGHT knee patient reports locking of right knee - this is likely from OA; cannot rule out pseudogout (19) DJD (degenerative joint disease), lumbar: spinal canal w/o significant stenosis based on CT l-spine today has no l-spine pain I do not suspect RLE weakness is from L-spine issue B12 level noted to be normal (20) Discharge planning issues: spoke with son twice on 01/12 left message on his voicemail on 01/13 - did state during that message that his father had fallen but NO injuries were found [facility] Subjective 2 visits to pt's room today. first visit was this am. he denied any dizziness at that time. main complaint was that of RLE weakness and mild right knee pain. voltaren gel IS helping. staff reported good appetite, good energy, and better gait today. several hours later I received a page from his nurse that the patient had fallen while attempting to get up from the commode. apparently he had urinary urgency and did not ring for the nursing staff. he decided to get up from the bed and walk to the commode. he voided, and while attempting to stand, his RLE gave way because of knee pain/locking and the RLE weakness. he fell to the ground. he thinks he hit his head. no syncope or presyncope. tele did not show any pauses or other dysrhythmia (a. fib only). during my 2nd visit he denied any hip pain, foot/ankle pain, or arm pain. denied any dyspnea, cp, or headache. again complained of mild right knee pain. Review of Systems Constitutional: no anorexia Ear, Nose, Mouth, Throat: no dysphagia Respiratory: no cough, no dyspnea and no dyspnea on exertion Cardiovascular: + lightheadedness; no chest pain and no orthopnea Gastrointestinal: no abdominal pain, no nausea and no vomiting Genitourinary: no dysuria Musculoskeletal: as per Subjective / HPI and + joint pain Neurologic: + dizziness; no numbness Physical Exam Constitutional: well developed and well nourished; no acute distress Eyes: + conjunctival abnormality (resolving subconjunctival hemorrhage, lateral aspect right eye) and PERRL ENMT: external ear and nose normal, oropharynx normal Respiratory: normal respiratory effort, lungs clear to auscultation Cardiovascular: Rate/Rhythm: regular rate and + irregularly irregular Heart Sounds: normal S1 and normal S2; no murmur Vessels: posterior tibial pulses present and dorsalis pedis pulses present; no JVD Extremities: no edema Gastrointestinal (Abdomen): normal bowel sounds, soft, nontender, no hepatosplenomegaly Musculoskeletal: right knee with minimal amount of swelling; tender to palpation and with passive ROM; b/l hips without pain with passive ROM; no ankle or foot deformities b/l; no deformities or pain of both arms Neurologic: + focal motor deficit (right leg distal with weak ankle dorsiflexion) Speech / Cognition: + abnormal speech (essentially resolved dysarthria) Motor/Sensory: no pronator drift scant right facial droop Results & Data Vital Signs (Past 12 Hours) Vital Signs Temp Pulse Pulse Resp BP Pulse Ox 01/13/19 12:35 36.8 C 99 01/13/19 07:16 36.5 C 78 19 151/98 H 95 01/13/19 03:58 36.6 C 68 17 132/80 97 Laboratory Results Laboratory Results - last 24 hr 01/13/19 01/13/19 01/13/19 06:01 07:14 11:24 Sodium 137 Potassium 4.4 Chloride 106 Carbon Dioxide 27 Anion Gap 4.0 BUN 24 H Creatinine 1.52 H Est Cr Clr Drug Dosing 42.0 Est GFR ( Amer) 48.4 Est GFR (Non-Af Amer) 41.8 BUN/Creatinine Ratio 15.6 Glucose 123 H POC Glucose 120 H 173 H Calcium 8.6 01/13/19 01/13/19 17:08 20:03 Sodium Potassium Chloride Carbon Dioxide Anion Gap BUN Creatinine Est Cr Clr Drug Dosing Est GFR ( Amer) Est GFR (Non-Af Amer) BUN/Creatinine Ratio Glucose POC Glucose 110 H 99 Calcium Diagnostic Findings repeat CT head negative for ICH or interval change PG Care Time/CCT Total # of Minutes Spent Total Time Spent with Patient: Total time spent is greater than 50% in coordination of care (as documented) at patient's floor/unit and/or counseling patient: (1) Osteoarthritis of both knees Osteoarthritis type: unspecified Qualified Code(s): M17.0 - Bilateral primary osteoarthritis of knee (2) ARF (acute renal failure) Acute renal failure type: unspecified Qualified Code(s): N17.9 - Acute kidney failure, unspecified (3) DJD (degenerative joint disease), lumbar Spinal osteoarthritis complication: unspecified spinal osteoarthritis Qualified Code(s): M47.816 - Spondylosis without myelopathy or radiculopathy, lumbar region (4) DM type 2 (diabetes mellitus, type 2) Diabetes mellitus complication status: without complication Diabetes mellitus ad terminal makeup operator insulin use: with ad terminal makeup operator use Qualified Code(s): E11.9 - Type 2 diabetes mellitus without complications; Z79.4 - FPC (current) use of insulin (5) Afib Atrial fibrillation type: chronic Qualified Code(s): I48.2 - Chronic atrial fibrillation (6) Hyperlipidemia Hyperlipidemia type: mixed hyperlipidemia Qualified Code(s): E78.2 - Mixed hyperlipidemia (7) Hypothyroid Hypothyroidism type: acquired Qualified Code(s): E03.9 - Hypothyroidism, unspecified (8) Foreign body in lip Encounter type: sequela Qualified Code(s): S00.551S - Superficial foreign body of lip, sequela (9) Altered mental status Altered mental status type: unspecified Qualified Code(s): R41.82 - Altered mental status, unspecified (10) GERD (gastroesophageal reflux disease) Esophagitis presence: esophagitis presence not specified Qualified Code(s): K21.9 - Gastro-esophageal reflux disease without esophagitis (11) Chest pain Chest pain type: unspecified Qualified Code(s): R07.9 - Chest pain, unspecified (12) Hypertension Hypertension type: essential hypertension Qualified Code(s): I10 - Essential (primary) hypertension (13) Fall Encounter type: initial encounter Qualified Code(s): W19.XXXA - Unspecified fall, initial encounter (14) Right knee pain Chronicity: acute Qualified Code(s): M25.561 - Pain in right knee
--- NOTE | 2019-01-13 16:23 | CT Scan Report ---
CT head/brain wo con CLINICAL HISTORY: 83 years-old Male with fall, s/p head trauma, eval ICH. Acute head injury status p ost fall TECHNIQUE: Multiple axial CT images of the head were obtained without contrast. A dose lowering tech nique was utilized adhering to the principles of ALARA. CT DOSE: 729.78 mGycm COMPARISON: CT head 01/12/2019. FINDINGS: No acute intracranial hemorrhage, midline shift, intracranial mass, hydrocephalus, territorial ischem ia or abnormal extra-axial collection. Age-related involutional changes. Patchy white matter hypodens ities suggest chronic microvascular ischemic disease. 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 Cerebral vascular calcifications are noted. Encephalomalacia from remote infarction note d about the right temporal lobe. The calvarium is intact. Bilateral mastoid effusions. 3.4 cm area of polypoid mucosal thickening abo ut the left posterior nasal aperture. Moderate mucosal thickening about the posterior left ethmoid ai r cells. Soft tissues and orbits are unremarkable. IMPRESSION: No acute intracranial abnormality or calvarial fracture. The above report was generated using voice recognition software. It may contain grammatical, syntax o r spelling errors. Electronically signed by: Mason Cisneros M.D. 01/13/2019 4:22 PM
[2019-01-13] MEDS ORDERED: predniSONE 5 MG TAB PO ONE (16:43)
[2019-01-13] MEDS: ATORVASTATIN 40 MG TAB PO SCH (20:20)
[2019-01-14] MEDS: LEVOTHYROXINE SODIUM 50 MCG TABLET PO SCH (05:55)
[2019-01-14 07:10] LABS: Hematocrit (blood only) 46.8 % (42-52); Hemoglobin 16.9 g/dL (14.0-18.0); Mean Corpuscular Hemoglobin 30.2 pg (25-34); Mean Corpuscular Hgb Conc 36.1 g/dL (32-36); Mean Corpuscular Volume 83.7 fL (80-100); RDW Coefficient of Variation 13.8 % (11.5-14.5); Red Blood Count 5.59 M/uL (4.7-6.1); White Blood Count 9.08 K/uL (4.8-10.8)
[2019-01-14 07:29] LABS: Mean Platelet Volume 11.7 fL (7.4-10.4); Platelet Count 93 K/uL (130-400)
[2019-01-14] MEDS: PANTOprazole 40 MG TAB PO SCH (07:40)
[2019-01-14] MEDS: DICLOFENAC SOD 1% GEL 100 GM TUBE EXT SCH ×2 (07:41→12:22)
[2019-01-14] MEDS: DULOXETINE HCL 60 MG CAP PO SCH (07:41)
[2019-01-14] MEDS: PREGABALIN 50 MG CAP PO SCH ×2 (07:41→12:27)
[2019-01-14] MEDS: ASPIRIN 81 MG ECTAB PO SCH (07:41)
[2019-01-14] MEDS: EZETIMIBE 10 MG TABLET PO SCH (07:41)
[2019-01-14] MEDS: MAGNESIUM OXIDE 400 MG TAB PO SCH (07:41)
[2019-01-14] MEDS: INSULIN ASPART 100 UNITS/ML 3 ML PEN SC SCH ×2 (07:42→12:21)
[2019-01-14] MEDS: APIXABAN 2.5 MG TAB PO SCH (07:42)
[2019-01-14] MEDS: POLYETHYLENE (MIRALAX) 17 GM PACK PO SCH (07:42)
[2019-01-14] MEDS: FINASTERIDE 5 MG TAB PO SCH (07:42)
[2019-01-14 07:51] LABS: BUN Creatinine Ratio 15.9 (10-20); Calcium 8.8 mg/dl (8.5-10.1); Creatinine Clr Calc Pharmacy 43.7 ml/min; Est GFR (African American) 51.2; Est GFR (Non-African American) 44.2
[2019-01-14 08:38] LABS: Potassium 4.6 mmol/L (3.5-5.1)
[2019-01-14 08:46] LABS: Magnesium 2.2 mg/dl (1.8-2.4)
[2019-01-14] MEDS ORDERED: predniSONE 10 MG TABLET PO SCH (09:00)
[2019-01-14] MEDS ORDERED: STROKE PATIENT DISCHARGE STA (12:41)
[2019-01-14 12:51] VITALS: BP 160/93; PULSE 78; TEMP 97.3; O2SAT 93
--- NOTE | 2019-01-24 07:22 | Discharge Summary ---
Date of Service date of admission - January 09, 2019 date of discharge - January 14, 2019 Admission HPI Per Admitting Provider 83 y/o M c/o recurrent stroke-like sx. Pt states he has not felt his usual for the last few days. He has had intermittent lightheadedness that comes and goes without reason. After his grandson's baseball game today, pt had recurrent of lightheadedness, however he then progressed to staring and AMS with some slurred speech and not following commands. This lasted about 45 minutes and then resolved, however it returned a bit later and last for an hour. Pt states that he feels at his usual at present. Pt states he had chest pain with this. He states he has also been having intermittent chest pain over the last month. Substernal and nonradiating. This happens with activity, but not all activity and lasts for about 10-15 minutes and then resolves. No SOB. Pt denies fever, abd pain, n/v/c/d, LE swelling. Pt always has LE pain due to neuropathy. Principal Diagnosis suspected left-sided stroke with resulting right-sided weakness Discharge Exam Constitutional well developed and well nourished; no acute distress Eyes + conjunctival abnormality (resolving subconjunctival hemorrhage, lateral aspect right eye) and PERRL ENMT external ear and nose normal, oropharynx normal Respiratory normal respiratory effort, lungs clear to auscultation Cardiovascular Rate/Rhythm: regular rate and + irregularly irregular Heart Sounds: normal S1 and normal S2; no murmur Vessels: posterior tibial pulses present and dorsalis pedis pulses present; no JVD Extremities: no edema Gastrointestinal (Abdomen) normal bowel sounds, soft, nontender, no hepatosplenomegaly Musculoskeletal right knee - resolved tenderness, resolved minimal effusion. Neurologic + focal motor deficit (right leg distal with weak ankle dorsiflexion) Speech / Cognition: + abnormal speech (essentially resolved dysarthria) Motor/Sensory: no pronator drift Discharge Data Allergies Allergy/AdvReac Type Severity Reaction Status Date / Time oxycodone AdvReac Mild NAUSEA/VOMI Verified 01/18/19 16:31 TING tramadol AdvReac Unknown confusion Unverified 01/18/19 16:31 Consultations neurology - Jovani Rizo MD PT, OT, speech Ordered Studies 01/09/19 15:01 CT head/brain wo con Stat Proportional ventricular and sulcal prominence, likely age-related parenchymal volume loss. No hemorrhage. Periventricular and subcortical white matter hypoattenuation, nonspecific but likely indicative of chronic small vessel ischemic change. 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 Old cortical infarct in the anterolateral right temporal lobe unchanged. No acute territorial infarct. No mass effect or midline shift. No extra-axial fluid collection. Trace mucosal thickening in posterior ethmoid air cells on the left. Calvarium intact. 01/10/19 09:21 CT angio head w con Routine CT angio neck with con Routine 01/10/19 17:17 CT head/brain wo con Routine 01/12/19 15:52 CT head/brain wo con Routine CT lumbar spine wo con Routine 01/13/19 16:05 CT head/brain wo con Stat echocardiogram - * EF 55-60% * normal valvular function * no wall motion abnormalities * focal thickening of the basal septum but no LV outflow tract obstruction right knee x-rays - IMPRESSION: Mild degenerative change all major joint compartments. Mild c hondrocalcinosis. orbit x-rays - IMPRESSION: 1. No evidence for radiopaque foreign body within the orbits. 2. Metallic suture occupying the right lateral orbital margin. 3. Subcutaneous metallic foreign body anterior aspect right inferior lip Hospital Course (1) Brainstem stroke: Suspected -- based on clinical course and exam findings of mild dysarthria, distal right leg weakness, right facial droop. Unfortunately could not obtain confirmatory MRI brain due to metal fragment in face. Neurology consult completed; recommendations - high intensity statin, asa/eliquis for secondary prevention. Seen by PT,OT, speech; inpatient rehab recommended. Of note - CTA head/neck with multiple stenoses - continue high-intensity statin, asa, etc. Had MULTIPLE head CTs this admission all without acute findings or ICH. L-spine CT with moderate DJD but open spinal canal; DJD unlikely contributing to RLE weakness. (2) Fall: Later on during his hospitalization the patient had urinary urgency, did not ring for the staff, got out of bed, and went to the commode. He voided, and after trying to stand up, his right leg locked, right leg buckled, and he fell to the ground. He did not lose consciousness. He did not have syncope. He thinks he may have hit his head. CT head was repeated after that event - no ICH or other acute pathology. Telemetry did NOT reveal pauses or bradycardia during the fall. Rate- controlled a.fib only. The fall was felt to be a combination of right leg weakness from the stroke, right knee pain (from suspected pseudogout), and orthostasis contributing to the fall. He remains a VERY HIGH FALL RISK outside the hospital. (3) Right knee pain: Had OA on exam and his knee x-rays. There was also suggestion of CPPD on x-rays (pseudogout). He had a very small joint effusion with tenderness; thus, he may have had some low-grade pseudogout. Received low-dose prednisone with rapid improvement in right knee pain/swelling. He will complete a short course of low-dose prednisone post-discharge and he can also use voltaren gel prn. (4) Orthostatic hypotension: Likely cause of dizziness at home as well as during the stay. Acute kidney injury likely was volume depletion. low-dose ELIAZAR and alpha baldemar were held because of the orthostasis. The orthostasis gradually improved over time. Can attempt to resume his flomax if it doesn't worsen his orthostasis. (5) Altered mental status: Suspected metabolic encephalopathy from acute stroke. No evidence of any infectious process while here. Mental status improved over the course of the stay. (6) Chest pain: The patient did not have any chest pain symptoms during the hospitalization. Work-up - Troponins, EKG, and echo normal and without suggestion of ischemia. (7) ARF (acute renal failure): Peak Cr 1.9 ELIAZAR inhibitor was held discharge Cr was 1.4 (8) Hypertension: Controlled but in fact had orthostasis ELIAZAR inhibitor and alpha baldemar were held for several days At discharge the ELIAZAR was held; can attempt to resume the flomax but low threshold to stop it if any recurrent orthostasis (9) Afib: Controlled during the stay. Continue Eliquis 2.5 mg BID; currently not on a rate controlling medications. (10) Neuropathy: Continue Cymbalta 60 mg daily and Pregabalin 50 mg TID Due to Diabetic polyneuropathy? this will contribute to gait issues and fall risk (11) Hypothyroid: TSH 10/2018 wnl. Cont Levothyroxine 50 mcg daily (12) Hyperlipidemia: Continue Atorvastatin high-intensity Zetia 10mg daily also added due to LDL not being at goal in light of recurrent strokes (13) GERD (gastroesophageal reflux disease): Cont Ranitidine 150 mg BID and Protonix 40 mg daily (14) DM type 2 (diabetes mellitus, type 2): Control acceptable during the stay A1C 6.5% (15) Subconjunctival hemorrhage of right eye: cause? trauma pre-hospital? coughing fit leading to broken blood vessel? other? regardless no Rx needed; appeared to be improving through the stay (16) Foreign body in lip: as noted on orbit x-rays chronicity? on exam I didn't appreciate any lip trauma; thus, suspect metal fragment in lip is chronic no Rx needed was a linda - could have been from occupational exposure does have metal suture in right eye - patient recalls some sort of injury to right eye years ago requiring some form of surgical intervention (17) Osteoarthritis of both knees: voltaren gel 4gm qid to RIGHT knee patient reports locking of right knee - this is likely from OA; cannot rule out pseudogout (18) DJD (degenerative joint disease), lumbar: spinal canal w/o significant stenosis based on CT l-spine did not have l-spine pain during the stay I did not suspect RLE weakness is from L-spine issue B12 level noted to be normal Total Time Total Time Spent Total Time Spent (In Minutes): 50 Total Time Includes: Examination of the Patient, Discharge Planning and Medication Reconciliation Discharge Plan Discharge Items Patient Disposition: Transfer Inpatient Rehab Fac Reason For Visit: RECURRENT STROKE-LIKE Symptoms Discharge Diagnosis: suspected left-sided stroke with resulting right leg weakness; probable pseudogout and osteoarthritis of right knee; orthostatic hypotension - improved. Discharge Goals: Diagnostic testing and Therapeutic intervention Activity: Resume your previous activity Non-emergency contact: Primary Care Provider Call non-emergency contact if: you have any medication questions, your symptoms worsen, your pain is not controlled and your temperature is above 100.5 Follow-up/Referrals: Alexx Comer MD [Primary Care Provider] - (see Dr Comer within 1 week of rehab discharge) Mikal Yates MD [Physician] - (see Dr Yates, neurology, in 1 month for stroke follow-up.) Diet: Carb Consistent or DM2 Addtl Provider Instructions: From Demetrius Kat Hospitalist - The following were treated during this stay - 1. suspected stroke. Stroke location - left side of brain leading to mildly slurry speech, right facial droop (mild), and right leg weakness (especially distal near the foot/ankle). 2. right knee pain - likely combination of osteoarthritis and pseudogout. 3. orthostatic hypotension - improved with IV fluids and holding lisinopril. 4. fall which occurred as a result of right leg weakness and right knee pain/locking - NO INJURY as a result of this fall. 5. acute kidney injury - resolved with IV fluids. Recommendations - 1. prednisone 10mg daily x 3 days for right knee; start 01/15/19. 2. HOLD lisinopril for now; may be able to resume later on if orthostatic BPs stay normal. 3. HOLD NPH insulin; use lantus with novolog for now (see medication list). 4. voltaren gel TO RIGHT KNEE as needed/desired for pain. 5. CONTINUE aspirin and twice daily eliquis for prevention of future stroke. 6. FALL PRECAUTIONS. 7. START zetia 10mg once daily for cholesterol; take this in ADDITION TO lipitor. 8. Check fingerstick blood sugars before meals and at bedtime. Follow-up - 1. see Dr Yates, neurology, [address] Comer within 1 week of discharge from [facility]. Stroke instructions - Risk Factors for Stroke: You can reduce your chances of stroke by working with your medical provider to adopt a healthy lifestyle. Some specific ways to lower your chance of stroke are: * If you are a smoker, now is the time to stop smoking cigarettes * If you are diabetic, improve the control of your blood sugars * Avoid excessive amounts of alcohol * Control high blood pressure * Lose weight if you are overweight * Be sure to lead an active lifestyle * Eat a healthy diet low in salt, cholesterol and fat You should know about other risk factors for stroke that you are unable to control. These include: * Age 55 years or older * Male gender * Certain racial groups: , or / * Family History of Stroke, Mini stroke or Heart Attack * Sickle Cell Disease Follow Up: It is important for you to keep your follow up appointments with your medical provider. Who to Call and When: Medical Emergencies: Call 911 immediately if you experience any of the following warning signs and symptoms of Stroke: * Sudden numbness or weakness of the face, arm or leg, especially on one side of the body * Sudden confusion, trouble speaking or understanding * Sudden trouble seeing in one or both eyes * Sudden trouble walking, dizziness, loss of balance or coordination * Sudden severe headache with no cause Do not delay calling 911 if you experience any warning signs or symptoms of a stroke. Delay in seeking medical attention may affect what treatments can be given to you. . Prescriptions: New ezetimibe [Zetia] 10 mg Tablet 10 mg PO QAM Qty: 30 RF: 5 Lantus Solostar U-100 Insulin 100 unit/mL (3 mL) insulin pen 10 units SQ HS Qty: 15 RF: 0 Novolog PenFill U-100 Insulin 100 unit/mL cartridge 1 sliding scale dose SQ USEASDIRECTD Qty: 15 RF: 0 diclofenac sodium [Voltaren] 1 % Gel 1 applic EXT QID PRN (Reason: Pain) Qty: 1 RF: 0 Continued Eliquis 2.5 mg tablet 2.5 mg PO BID RF: 0 aspirin [Aspir-81] 81 mg Tablet,Delayed Release (Dr/Ec) 81 mg PO QAM RF: 0 atorvastatin 80 mg Tablet 80 mg PO HS RF: 0 duloxetine 60 mg Capsule,Delayed Release(Dr/Ec) 60 mg PO QAM RF: 0 finasteride 5 mg Tablet 5 mg PO QAM RF: 0 levothyroxine 50 mcg Tablet 50 mcg PO QAM RF: 0 Lyrica 50 mg Capsule 50 mg PO TID RF: 0 magnesium oxide 400 mg magnesium Tablet 400 mg PO BID RF: 0 omeprazole 20 mg capsule,delayed release(DR/EC) 40 mg PO QAM RF: 0 polyethylene glycol 3350 [Miralax] 17 gram/dose Powder 17 g PO DAILY RF: 0 ranitidine HCl 150 mg Tablet 150 mg PO BID RF: 0 tamsulosin 0.4 mg capsule 0.4 mg PO QAM RF: 0 sennosides [senna] 8.6 mg Tablet 8.6 mg PO DAILY PRN (Reason: Constipation) RF: 0 Discontinued lisinopril 5 mg Tablet 5 mg PO DAILY RF: 0 Novolin N NPH U-100 Insulin 100 unit/mL suspension 27 - 28 unit subcut BID RF: 0 No Action acetaminophen [Tylenol Extra Strength] 500 mg Tablet 500 mg PO Q6H PRN (Reason: Pain) RF: 0 famotidine 20 mg Tablet 20 mg PO QAM RF: 0 pantoprazole 40 mg Tablet,Delayed Release (Dr/Ec) 40 mg PO QAM RF: 0 metoprolol tartrate 50 mg Tablet 50 mg PO BID RF: 0 docusate sodium 100 mg Tablet 100 mg PO BID RF: 0 Stand-Alone Forms: [facility] Discharge Orders: Discharge Order (Routine); Ordered 01/14/19 Ordered By: Demetrius Kat Skilled Items Patient informed of condition?: Yes DNR: No Discharge Level of Care: Acute rehab Communicable Disease: No Discharge Prognosis: Improving Admission Data Admit Date/Time: 01/10/19 13:45 Attending Provider: Demetrius Kat Admit Provider: Марина Gunter Primary Care Provider: Alexx Comer Other Providers: Mikal Yates Service: Telemetry Other Interventions: Discharge Summary Assessment (RN) Last Done: 01/14/19 13:13 Pending Studies at Discharge: No DC Date/Time DO NOT enter until pt leaves facility: 01/14/19 15:09
== END 2019-01-14 15:09 | DRG 65 ==
LOC: ED 14:45 → 2E 14:45 → SUATTDRO 17:44 → 2E 17:58 → SUATTDRO 01-10 13:45

== ENCOUNTER 2020-03-07 20:36 | Observation (INO) ==
[2020-03-07] MEDS ORDERED: LIDOCAINE 2% JELLY 5 ML TUBE EXT ONE (21:42)
[2020-03-07] MEDS ORDERED: SODIUM CHLORIDE 0.9% 1000ML 1,000 ML IV SCH (21:45)
[2020-03-07 22:01] LABS: Hematocrit (blood only) 44.9 % (42-52); Hemoglobin 15.4 g/dL (14.0-18.0); Mean Corpuscular Hemoglobin 30.3 pg (25-34); Mean Corpuscular Hgb Conc 34.3 g/dL (32-36); Mean Corpuscular Volume 88.4 fL (80-100); Mean Platelet Volume 11.7 fL (7.4-10.4); Platelet Count 97 K/uL (130-400); RDW Coefficient of Variation 14.9 % (11.5-14.5); RDW Standard Deviation 48.1 fL (36.4-46.3); Red Blood Count 5.08 M/uL (4.7-6.1); White Blood Count 7.26 K/uL (4.8-10.8)
[2020-03-07 22:18] LABS: Basophils # (auto) 0.01 K/uL (0-0.2); Basophils % (auto) 0.1 %; Echinocytes 1+; Eosinophils # (auto) 0.11 K/uL (0-0.5); Eosinophils % (auto) 1.5 %; Immature Granulocytes # (auto) 0.03 K/uL (0.00-0.02); Immature Granulocytes % (auto) 0.4 %; Lymphocytes # (auto) 1.35 K/uL (1.2-3.4); Lymphocytes % (auto) 18.6 %; Monocytes # (auto) 0.53 K/uL (0.11-0.59); Monocytes % (auto) 7.3 %; Neutrophils # (auto) 5.23 K/uL (1.4-6.5); Neutrophils % (auto) 72.1 %
[2020-03-07 22:20] LABS: Albumin Level 3.4 gm/dl (3.4-5.0); BUN Creatinine Ratio 17.6 (10-20); Calcium 9.4 mg/dl (8.5-10.1); Creatinine Clr Calc Pharmacy 38.4 ml/min; Est GFR (African American) 44.8; Est GFR (Non-African American) 38.7; Potassium 4.6 mmol/L (3.5-5.1)
[2020-03-07 22:23] LABS: Albumin Globulin Ratio 0.9 (0.9-2); Bilirubin,Total 0.6 mg/dl (0.2-1); Globulin 3.6 gm/dl (2.5-4.0)
[2020-03-07] MEDS ORDERED: IOVERSOL 100ml IV ONE (22:43)
[2020-03-07 23:05] LABS: Appearance Urine Clear (Clear); Bacteria Urine Automated Negative (Negative); Bilirubin Urine Negative (Negative); Blood Urine Negative (Negative); Color Urine Yellow; Epithelial Cell Urine Auto 0-5 /lpf (0-5); Glucose Urine UA Negative (Negative); Ketones Urine Negative (Negative); Leukocyte Esterase Urine Negative (Negative); Nitrite Urine Negative (Negative); Protein Urine Trace (Negative); RBC Urine Automated 0-4 /hpf (0-4); Specific Gravity Urine 1.034 (1.000-1.030); Urobilinogen Urine Negative (Negative); WBC Urine Automated 0 /hpf (0-5); pH Urine 6.5 (4.5-7.5)
[2020-03-08] MEDS ORDERED: SODIUM CHLORIDE 0.9% 1000ML 500 ML IV ONE (00:31)
--- NOTE | 2020-03-08 00:36 | History & Physical Report ---
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 fib on anticoagulation, DJD, and GERD who presents with 1 day of rectal pain and difficulty voiding. Rectal pain 2/[address]: Mild rectal thickening and perirectal stranding suspicious for proctitis, scattered colonic diverticuli. 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 fib with history of stroke Continue apixaban 2.5 mg p.o. twice daily Adequately rate controlled without beta blockers/calcium channel blockers Type 2 diabetes mellitus with neuropathy On 70/30 insulin prior to admission Converted to weight-based basal bolus, glargine 8 units twice daily with ISS goal 1100, CF 45, ratio 16 Glucose checks AC/at bedtime BMP daily A1c pending Continue pregabalin 100 mg 3 times daily, duloxetine 60 mg daily History of urinary retention Continue finasteride 5 mg daily Continue tamsulosin 0.4 mg daily History of GERD Continue omeprazole 40 mg daily FEN GI: TELEPHONE SOLICITOR SUPERVISOR pending for recommended texture, then type II diabetic diet/heart healthy Disposition: MedSurg CODE STATUS: DNR/DNI, discussed with patient DVT prophylaxis, on apixaban as above (2) Diabetes mellitus: (3) Gait disturbance: (4) Ischemic optic neuropathy: (5) Mental status change resolved: (6) Myalgia and myositis: (7) Gout: (8) Diabetic neuropathy: (9) Anemia: (10) Memory impairment: (11) Acute renal insufficiency: (12) Proctitis: History of Present Illness Chief Complaint: Proctitis, rectal pain Primary Care Provider: Matt Comer MD Sahil is a 84-year-old male with a past medical history of multiple strokes with chronic ischemic vertebrobasilar brainstem stroke, CKD, diabetes mellitus, anemia, diabetic neuropathy, A. fib on anticoagulation, DJD, and GERD who presents with 1 day of rectal pain and difficulty voiding. History limited by memory deficits and cognitive status 2/2 prior strokes. Patient reports that he was in his otherwise normal state of health until this m orning when he had to go to the bathroom, but could not and experienced urinary retention. He also had experienced rectal discomfort and pain for 1 day, unsure if this has been affected by any bowel movements. He has not experienced these symptoms previously. He denies shortness of breath, chest pain, and other symptoms. He has 2 strokes and lives at home, with his son next door. He denies fever, chills, sweats denies chest pain, chest pressure, palpitations, syncope, presyncope. Denies acute change in strength, weakness, or any new neurologic deficits. He endorses some discomfort when urinating, with a pressure-like quality. Medical history: Reviewed Surgical history: Reviewed Family history: Noncontributory Medications: Reviewed, last taken morning prior to admission Allergies: Reviewed CODE STATUS: DNR/DNI, discussed with patient Allergies Allergy/AdvReac Type Severity Reaction Status Date / Time hydrocodone AdvReac Mild Dizziness, Verified 03/07/20 23:21 [From Panlor Nausea (hydrocodone-acetamin)] oxycodone AdvReac Mild NAUSEA/VOMI Verified 03/07/20 23:21 TING tramadol AdvReac Mild confusion Verified 03/07/20 23:21 Home Medications Home Medications Medication Instructions Recorded Confirmed Type aspirin [Aspir-81] 81 mg PO QAM 01/09/19 03/07/20 History omeprazole 40 mg PO QAM 01/09/19 03/07/20 History acetaminophen [Tylenol Extra 500 mg PO Q6H PRN 01/18/19 03/07/20 History Strength] blood sugar diagnostic #100 ea 03/04/19 02/16/20 Rx apixaban 2.5 mg tablet 2.5 mg PO BID #180 tab 08/25/19 03/07/20 Rx atorvastatin 80 mg tablet 80 mg PO HS #90 tab 08/25/19 03/07/20 Rx carbidopa 25 mg-levodopa 100 mg 0.5 tab PO TID #45 tab 08/25/19 03/07/20 Rx tablet finasteride 5 mg tablet 5 mg PO QAM #90 tab 08/25/19 03/07/20 Rx levothyroxine 50 mcg tablet 50 mcg PO QAM #90 tab 08/25/19 03/07/20 Rx tamsulosin 0.4 mg capsule 0.4 mg PO QAM #90 cap 08/25/19 03/07/20 Rx insulin NPH-regular 70-30 U-100 20 units SQ BID #15 ml MDD 48 units 09/02/19 03/07/20 Rx insulin 100 unit/mL subcutaneous pen duloxetine 60 mg capsule,delayed 60 mg PO DAILY cap 10/21/19 03/07/20 History release lisinopril 5 mg tablet 5 mg PO DAILY tab 10/21/19 03/07/20 History pen needle, diabetic 32 gauge x #100 ea 01/03/20 02/16/20 Rx " diclofenac sodium 1 % topical gel 4 gm TOP QID #100 gm 02/16/20 03/07/20 Rx pregabalin 100 mg capsule 100 mg PO TID #90 cap 02/16/20 03/07/20 Rx magnesium oxide 400 mg PO BID #60 tab 02/22/20 03/07/20 Rx Past Med/Surg History Medical History Abnormal tympanic membrane Left and Right BPH (benign prostatic hyperplasia) 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 Yates--per son pt does not have any deficits Depression Difficulty swallowing DM type 2 (diabetes mellitus, type 2) (Chronic) GERD (gastroesophageal reflux disease) (Chronic) Hearing deficit History of atrial fibrillation History of cellulitis HTN (hypertension) Hyperlipidemia (Chronic) Hypothyroid (Chronic) Jaw disease Kidney stones Memory impairment Myocardial Infarction 2003--follows with Dr. [place] Neuropathy (Chronic) On anticoagulant therapy eliquis daily Osteoarthritis Stroke x3 total---follows with Dr. Yates Upper respiratory infection Surgical History History of bilateral cataract extraction History of esophagogastroduodenoscopy (EGD) History of kidney surgery History of lithotripsy x2 History of lumbar laminectomy History of tooth extraction Hx of CABG 2003 @ [facility] [place] Family History Father Diabetes Coronary heart disease Mother Diabetes Coronary heart disease Sister Breast cancer Brother Coronary heart disease Son Family history of diabetes mellitus Family/Other Family history of diabetes mellitus grandson Other No family history of adverse response to anesthesia Social History Smoking Status: Never smoker Second Hand Exposure: No; Hx Alcohol Use: No Hx Substance Use: No Preferred Language: Lao Communication Ability: Effective Hearing Ability: Use of Hearing Aid Cafeteria Director Required: No Beliefs That Will Affect Care: None marital status: Unknown Current Living Situation: Family Current Living Situation Comment: son sherie milan and daughter in law current occupational status: retired Feels Safe at Home: Yes Seatbelt Use: always Sunscreen Use: No Review of Systems Review of Systems: Constitutional: Denies fever, chills, malaise, weight change Eyes: Denies double vision, vision change ENT: Denies ear pain, sore throat, sinus pain Cardiovascular: Denies Chest pain, chest pressure, palpitations, extremity swelling Respiratory: Denies shortness of breath, cough, sputum production, difficulty breathing Gastrointestinal: Endorses abdominal pain/discomfort Genitourinary: Endorses urinary hesitancy Musculoskeletal: Denies acute weakness, muscle aches/pain, joint aches/pain Integumentary:Denies acute rash, lesions, bruising Neurological: Denies acute headache, numbness, tingling, focal weakness. Endorses chronic bilateral lower extremity neuropathy at baseline. Physical Exam Physical Exam: General: A&Ox3. NAD. Cooperative. HEENT: Atraumatic, normocephalic. Pulm: CTAB A&P. -wheezes, -rales, -rhonchi. Symmetrical chest rise. No increase work of breathing. No respiratory distress. Cardiac: irregularly irregular. Radial pulses intact and symmetrical. Abdominal: Tender in midline pelvis/periumbilical. No rebound tenderness. No rigidity. Bowel sounds intact. CN II: Visual lange are full to confrontation. Pupils are equal and react to light and accomidation. Visual acuity grossly intact. CN III, IV, : At primary gaze, there is no eye deviation. EoM intact without nystagmus. No visual field cuts. CN V: Facial sensation is intact to soft touch in all 3 divisions bilaterally. CN VII: Left-sided facial asymmetry appreciated. CN VII: Hard of hearing CN IX, X: Phonation with mild dysarthria. CN XI: Head turning intact CN XII: Tongue protrudes midline. Sensory: Light touch, pinprick intact in upper and lower extremity Results & Data Results & Data ([facility]) Vital Signs (Past 12 Hours) Vital Signs Temp Pulse Pulse Resp BP BP Pulse Ox 03/07/20 22:56 73 14 188/114 H 97 03/07/20 22:00 68 22 178/108 H 96 03/07/20 21:56 88 24 97 03/07/20 21:39 77 21 176/108 H 97 03/07/20 21:09 37.3 C 78 18 166/114 H 97 Supervising Physician Co-Signing Physician Notes Attending addendum: I have physically seen this patient, have supervised the medical residents activities, and agree with the H&P unless as otherwise noted. Assessment and Plan: Proctitis/stercoral colitis- NPO except essential medications NSS at 80 mils per hour Cipro 400 mg IV twice daily. Flagyl 500 mg IV every 8 hours Zofran 4 mg IV every 6 hours PRN Famotidine 20 mg IV every 12 hours Chronic ischemic vertebrobasilar stroke/Parkinson's/atrial fibrillation- Continue aspirin 81 mg daily and carbidopa/levodopa. Continue apixaban 2.5 mg p.o. twice daily Speech consult. NAVEED on CKD- Creatinine upon admission 1.6, with baseline 1.4-1.5. Received 500 cc normal saline in ED, and continue at 80 mils per hour. Repeat laboratories in a.m. Remaining orders and notations as noted. Resident Activity Tracking Resident Involvement: Resident Care Provided Care Provided: Adult [facility] Medicine
[2020-03-08] MEDS ORDERED: GLUCAGON FOR INJ 1 MG VIAL SQ PRN (01:17)
[2020-03-08] MEDS ORDERED: GLUCOSE 10 TABS/TUBE PO PRN (01:17)
[2020-03-08] MEDS ORDERED: DEXTROSE 50% 50 ML SYRINGE IV PRN (01:17)
[2020-03-08] MEDS ORDERED: CARBOHYDRATES FOR HYPOGLYCEMIA PO PRN (01:17)
[2020-03-08] MEDS ORDERED: GLUCOSE 40% GEL 15 GM TUBE PO PRN (01:17)
[2020-03-08] MEDS ORDERED: ACETAMINOPHEN 500 MG TAB PO PRN (01:17)
--- NOTE | 2020-03-08 01:47 | Emergency Department Note ---
History of Present Illness General Chief complaint: Abdominal Pain Stated complaint: ABD PAIN Source: patient and RN notes reviewed Mode of arrival: ambulatory Limitations: no limitations History of Present Illness Provider complaint: Abdominal pain, diarrhea Maximum Pain Intensity: 10 This patient is an 84-year-old male who presents to the emergency department with complaints of abdominal cramping, rectal pain "hemorrhoids" and diarrhea. Patient states he was constipated earlier in the day and took something [id number]. He is unclear what that was. He states ever since then he has been having diarrhea and his rectum is now very sore. He denies ever having history of hemorrhoids, but states he could not even sit in the chair in the waiting room. He denies any fevers, chills, chest pain, shortness of breath, vomiting, blood in the stool. Home Medications Home Medications Medication Instructions Recorded Confirmed Type aspirin [Aspir-81] 81 mg PO QAM 01/09/19 03/07/20 History omeprazole 40 mg PO QAM 01/09/19 03/07/20 History acetaminophen [Tylenol Extra 500 mg PO Q6H PRN 01/18/19 03/07/20 History Strength] blood sugar diagnostic #100 ea 03/04/19 02/16/20 Rx apixaban 2.5 mg tablet 2.5 mg PO BID #180 tab 08/25/19 03/07/20 Rx atorvastatin 80 mg tablet 80 mg PO HS #90 tab 08/25/19 03/07/20 Rx carbidopa 25 mg-levodopa 100 mg 0.5 tab PO TID #45 tab 08/25/19 03/07/20 Rx tablet finasteride 5 mg tablet 5 mg PO QAM #90 tab 08/25/19 03/07/20 Rx levothyroxine 50 mcg tablet 50 mcg PO QAM #90 tab 08/25/19 03/07/20 Rx tamsulosin 0.4 mg capsule 0.4 mg PO QAM #90 cap 08/25/19 03/07/20 Rx insulin NPH-regular 70-30 U-100 20 units SQ BID #15 ml MDD 48 units 09/02/19 03/07/20 Rx insulin 100 unit/mL subcutaneous pen duloxetine 60 mg capsule,delayed 60 mg PO DAILY cap 10/21/19 03/07/20 History release lisinopril 5 mg tablet 5 mg PO DAILY tab 10/21/19 03/07/20 History pen needle, diabetic 32 gauge x #100 ea 01/03/20 02/16/20 Rx 5/32" diclofenac sodium 1 % topical gel 4 gm TOP QID #100 gm 02/16/20 03/07/20 Rx pregabalin 100 mg capsule 100 mg PO TID #90 cap 02/16/20 03/07/20 Rx magnesium oxide 400 mg PO BID #60 tab 02/22/20 03/07/20 Rx Allergies Allergy/AdvReac Type Severity Reaction Status Date / Time hydrocodone AdvReac Mild Dizziness, Verified 03/07/20 23:21 [From Panlor Nausea (hydrocodone-acetamin)] oxycodone AdvReac Mild NAUSEA/VOMI Verified 03/07/20 23:21 TING tramadol AdvReac Mild confusion Verified 03/07/20 23:21 Past Med/Surg History Medical History Abnormal tympanic membrane Left and Right BPH (benign prostatic hyperplasia) 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 Yates--per son pt does not have any deficits Depression Difficulty swallowing DM type 2 (diabetes mellitus, type 2) (Chronic) GERD (gastroesophageal reflux disease) (Chronic) Hearing deficit History of atrial fibrillation History of cellulitis HTN (hypertension) Hyperlipidemia (Chronic) Hypothyroid (Chronic) Jaw disease Kidney stones Memory impairment Myocardial Infarction 2003--follows with Dr. [place] Neuropathy (Chronic) On anticoagulant therapy eliquis daily Osteoarthritis Stroke x3 total---follows with Dr. Yates Upper respiratory infection Surgical History History of bilateral cataract extraction History of esophagogastroduodenoscopy (EGD) History of kidney surgery History of lithotripsy x2 History of lumbar laminectomy History of tooth extraction Hx of CABG 2003 @ [facility] [place] Family History Father Diabetes Coronary heart disease Mother Diabetes Coronary heart disease Sister Breast cancer Brother Coronary heart disease Son Family history of diabetes mellitus Family/Other Family history of diabetes mellitus grandson Other No family history of adverse response to anesthesia Social History Smoking Status: Never smoker Second Hand Exposure: No; Hx Alcohol Use: No Hx Substance Use: No Preferred Language: Maldivian Communication Ability: Effective Hearing Ability: Use of Hearing Aid Roving Marker Required: No Beliefs That Will Affect Care: None marital status: Unknown Current Living Situation: Family Current Living Situation Comment: son sherie milan and daughter in law current occupational status: retired Feels Safe at Home: Yes Seatbelt Use: always Sunscreen Use: No Review of Systems See HPI for pertinent positives & negatives. and A total of 10 systems reviewed and were otherwise negative Physical Exam Vital Signs Vital Signs - 24 hr 03/07/20 21:09 03/07/20 21:39 03/07/20 21:56 Temperature 37.3 C Temperature Source Oral Pulse Rate 78 77 88 Pulse Rate [Right Finger] Pulse Rate from SpO2 Sensor 72 76 Respiratory Rate 18 21 24 Respiratory Effort / Characteristics Non-Labored Respiratory Depth Normal Respiratory Pattern Regular Blood Pressure 166/114 H 176/108 H Blood Pressure [Right Arm] Blood Pressure Mean 131 142 Blood Pressure Mean [Right Arm] Pulse Oximetry 97 97 97 Oxygen Delivery Method Room Air Sepsis Recent Fever Within 48 Hours No Sepsis New/Unexplained Change in Mental Status No Sepsis Action Taken by Nursing No Action Required 03/07/20 22:00 03/07/20 22:56 03/08/20 00:34 Temperature Temperature Source Pulse Rate 68 Pulse Rate [Right Finger] 73 59 L Pulse Rate from SpO2 Sensor 72 Respiratory Rate 22 14 19 Respiratory Effort / Characteristics Respiratory Depth Respiratory Pattern Blood Pressure 178/108 H Blood Pressure [Right Arm] 188/114 H 181/124 H Blood Pressure Mean 131 Blood Pressure Mean [Right Arm] 138 143 Pulse Oximetry 96 97 93 Oxygen Delivery Method Sepsis Recent Fever Within 48 Hours Sepsis New/Unexplained Change in Mental Status Sepsis Action Taken by Nursing Vital signs reviewed. General: Elderly but generally well appearing 84 yo male, in no significant distress. HEENT: No scleral icterus, PERRLA, neck supple. Atraumatic. Cardiovascular: Regular rate and rhythm, no extra sounds. Pulmonary: Clear to auscultation bilaterally, normal work of breathing. Abdomen: Soft, mild lower abdominal tenderness midline, nondistended, positive bowel sounds. Rectal: Multiple external hemorrhoids that are inflamed. Minimal gross blood on rectal exam with dark brown stools. Musculoskeletal: Atraumatic, no peripheral edema. Neurologic: Patient awake alert and oriented x 3 Skin: Warm, dry, no rash Course Administered Medications Sodium Chloride (Nss 1000ml) 1,000 mls @ 125 mls/hr IV .Q8H STEPH Stop: 03/08/20 05:44 Last Admin: 03/07/20 21:57 Dose: 125 mls/hr Documented by: [id number] Discontinued Medications Sodium Chloride (Nss 1000ml) 500 mls @ 999 mls/hr IV .Q31M ONE Stop: 03/08/20 01:01 Last Infusion: 03/08/20 01:07 Dose: 0 mls/hr Documented by: [id number] Admin: 03/08/20 00:49 Dose: 999 mls/hr Documented by: [id number] Ioversol (Optiray 320 100ml) 100 ml IV ONCE ONE Stop: 03/07/20 22:44 Last Admin: 03/07/20 22:44 Dose: 93 ml Documented by: [id number] Lidocaine HCl (Xylocaine 2% Jelly) 10 ml EXT NOW ONE Stop: 03/07/20 21:43 Last Admin: 03/07/20 21:57 Dose: 10 ml Documented by: [id number] Medical Decision Making Differential Diagnosis Differential diagnosis: Etiologies such as biliary colic, cholecystitis, hepatitis, perihepatitis, pancreatitis, cardiac disease, pancreatitis, gastritis, peptic ulcer disease, appendicitis, ovarian cyst, ovarian torsion, ectopic , pelvic infl ammatory disease, cystitis, diverticulitis, mesenteric ischemia, inflammatory bowel disease, ileus, bowel obstruction, aortic pathology, shingles, as well as others were considered. Medical Records Attestation: I reviewed the patient's medical records. Home Medications Current Medication List: was personally reviewed by me Laboratory Data Attestation: I reviewed the patient's lab results. Result diagrams: 03/07/20 21:28 03/07/20 21:28 Lab Results 03/07/20 03/07/20 03/07/20 Range/Units 21:28 21:28 22:54 WBC 7.26 (4.8-10.8) K/uL RBC 5.08 (4.7-6.1) M/uL Hgb 15.4 (14.0-18.0) g/dL Hct 44.9 (42-52) % MCV 88.4 (80-100) fL MCH 30.3 (25-34) pg MCHC 34.3 (32-36) g/dL RDW Std Deviation 48.1 H (36.4-46.3) fL RDW Coeff of Eben 14.9 H (11.5-14.5) % Plt Count 97 L (130-400) K/uL MPV 11.7 H (7.4-10.4) fL Immature Gran % (Auto) 0.4 % Neut % (Auto) 72.1 % Lymph % (Auto) 18.6 % Morris % (Auto) 7.3 % Eos % (Auto) 1.5 % Baso % (Auto) 0.1 % Neut # (Auto) 5.23 (1.4-6.5) K/uL Lymph # (Auto) 1.35 (1.2-3.4) K/uL Morris # (Auto) 0.53 (0.11-0.59) K/uL Eos # (Auto) 0.11 (0-0.5) K/uL Baso # (Auto) 0.01 (0-0.2) K/uL Immature Gran # (Auto) 0.03 H (0.00-0.02) K/uL Echinocytes 1+ Sodium 141 (136-145) mmol/L Potassium 4.6 (3.5-5.1) mmol/L Chloride 112 H (98-107) mmol/L Carbon Dioxide 24 (21-32) mmol/L Anion Gap 5.0 (3-11) BUN 28 H (7-18) mg/dl Creatinine 1.61 H (0.6-1.4) mg/dl Est Cr Clr Drug Dosing 38.4 ml/min Est GFR ( Amer) 44.8 Est GFR (Non-Af Amer) 38.7 BUN/Creatinine Ratio 17.6 (10-20) Glucose 189 H (70-99) mg/dl Calcium 9.4 (8.5-10.1) mg/dl Total Bilirubin 0.6 (0.2-1) mg/dl AST 33 (15-37) U/L ALT 45 (12-78) U/L Alkaline Phosphatase 89 (45-117) U/L Total Protein 7.0 (6.4-8.2) gm/dl Albumin 3.4 (3.4-5.0) gm/dl Globulin 3.6 (2.5-4.0) gm/dl Albumin/Globulin Ratio 0.9 (0.9-2) Lipase 250 (73-393) U/L Urine Color Yellow Urine Appearance Clear (Clear) Urine pH 6.5 (4.5-7.5) Ur Specific [place] 1.034 H (1.000-1.030) Urine Protein Trace H (Negative) Urine Glucose (UA) Negative (Negative) Urine Ketones Negative (Negative) Urine Blood Negative (Negative) Urine Nitrite Negative (Negative) Urine Bilirubin Negative (Negative) Urine Urobilinogen Negative (Negative) Ur Leukocyte Esterase Negative (Negative) Urine WBC (Auto) 0 (0-5) /hpf Urine RBC (Auto) 0-4 (0-4) /hpf U Hyaline Cast (Auto) 1-5 (0-5) /lpf U Epithel Cells (Auto) 0-5 (0-5) /lpf Urine Bacteria (Auto) Negative (Negative) Stl C. diff Tox B Gene (Neg) 03/07/20 Range/Units 22:54 WBC (4.8-10.8) K/uL RBC (4.7-6.1) M/uL Hgb (14.0-18.0) g/dL Hct (42-52) % MCV (80-100) fL MCH (25-34) pg MCHC (32-36) g/dL RDW Std Deviation (36.4-46.3) fL RDW Coeff of Eben (11.5-14.5) % Plt Count (130-400) K/uL MPV (7.4-10.4) fL Immature Gran % (Auto) % Neut % (Auto) % Lymph % (Auto) % Morris % (Auto) % Eos % (Auto) % Baso % (Auto) % Neut # (Auto) (1.4-6.5) K/uL Lymph # (Auto) (1.2-3.4) K/uL Morris # (Auto) (0.11-0.59) K/uL Eos # (Auto) (0-0.5) K/uL Baso # (Auto) (0-0.2) K/uL Immature Gran # (Auto) (0.00-0.02) K/uL Echinocytes Sodium (136-145) mmol/L Potassium (3.5-5.1) mmol/L Chloride (98-107) mmol/L Carbon Dioxide (21-32) mmol/L Anion Gap (3-11) BUN (7-18) mg/dl Creatinine (0.6-1.4) mg/dl Est Cr Clr Drug Dosing ml/min Est GFR ( Amer) Est GFR (Non-Af Amer) BUN/Creatinine Ratio (10-20) Glucose (70-99) mg/dl Calcium (8.5-10.1) mg/dl Total Bilirubin (0.2-1) mg/dl AST (15-37) U/L ALT (12-78) U/L Alkaline Phosphatase (45-117) U/L Total Protein (6.4-8.2) gm/dl Albumin (3.4-5.0) gm/dl Globulin (2.5-4.0) gm/dl Albumin/Globulin Ratio (0.9-2) Lipase (73-393) U/L Urine Color Urine Appearance (Clear) Urine pH (4.5-7.5) Ur Specific [place] (1.000-1.030) Urine Protein (Negative) Urine Glucose (UA) (Negative) Urine Ketones (Negative) Urine Blood (Negative) Urine Nitrite (Negative) Urine Bilirubin (Negative) Urine Urobilinogen (Negative) Ur Leukocyte Esterase (Negative) Urine WBC (Auto) (0-5) /hpf Urine RBC (Auto) (0-4) /hpf U Hyaline Cast (Auto) (0-5) /lpf U Epithel Cells (Auto) (0-5) /lpf Urine Bacteria (Auto) (Negative) Stl C. diff Tox B Gene Negative Cdiff Gene (Neg) Imaging Data Radiologist's Impression: CT abdomen and pelvis with contrast: Compared to CT 05/28/2017 Moderate stool in the rectum with mild rectal thickening and perirectal stranding, raising the possibility of proctitis. Scattered colonic diverticuli. Areas of mild small and large wall thickening or under distention. Normal caliber appendix Slight bladder wall thickening. Nephrolithiasis. Slight prominence of the bilateral renal collecting systems without evidence of ureteral stone. Bilateral renal hypodensities. Low-density lesion at the hepatic dome. Moderate hiatal hernia. Bibasilar atelectasis/pneumonitis. Cholecystectomy with pneumobilia. Additional incidental findings. Radiologist Kim Restrepo MD Blood Pressure Blood Pressure Findings: Elevated blood pressure Blood Pressure Disposition: further management by hospitalist MDM Narrative This patient was evaluated and appeared to be somewhat uncomfortable on my exam. Rectal exam revealed very large and inflamed hemorrhoids. Patient does have some slight to mild blood on rectal exam. He needed to have a bowel movement immediately. He stood up and left a liquid BM trail to the toilet. He is somewhat unsteady on his feet. A stool sample was obtained and sent to the lab for testing. Stool was negative for C. difficile and cultures are pending. Laboratory work reveals a mildly elevated creatinine at 1.61. White blood cell count is normal at 7.26. I did speak with the patient's son who arrived in the emergency department. He prefers that the patient stay in the hospital overnight due to the diarrhea, blood in the stools and multiple trips to the bathroom. I did also explain my concern for the patient's marked hypertension. He states the patient has been taken off of his hypertensive meds x1 year due to a previous stroke. Nonetheless patient's blood pressure will need to be monitored and likely addressed. Patient seems happy with the plan and agrees. He will be evaluated the hospitalist for further management. Impression & Plan Diarrhea, Bright red blood per rectum, Inflamed external hemorrhoid Discharge Plan Visit Data *Final* Discharge Date/Time: 03/08/20 01:03 Chief Complaint: Abdominal Pain Stated Complaint: ABD PAIN ED Provider: Mireya Arthur Discharge Problem: Diarrhea, Bright red blood per rectum, Inflamed external hemorrhoid Patient Disposition: Admitted As Inpatient Discharge Instructions Interventions: ED Discharge Assessment Last Done: 03/08/20 01:03 Discharge Problem: Diarrhea Qualifiers: Diarrhea type: unspecified type Qualified Code(s): R19.7 - Diarrhea, unspecified
[2020-03-08] MEDS ORDERED: HydrALAZINE HCL 20 MG/ML VIAL IV ONE ×2 (01:48→04:15)
[2020-03-08] MEDS ORDERED: HydrALAZINE HCL 20 MG/ML VIAL ONE ×2 (01:57→04:24)
[2020-03-08] MEDS: ACETAMINOPHEN 325 MG TAB PO PRN ×3 (01:58→23:28)
[2020-03-08] MEDS: CIPROFLOXACIN / D5W 400 MG/200 ML BAG IV SCH ×2 (02:30→13:23)
[2020-03-08] MEDS ORDERED: INSULIN ASPART 100 UNITS/ML 3 ML PEN SC SCH (06:00)
[2020-03-08] MEDS: LEVOTHYROXINE SODIUM 50 MCG TABLET PO SCH (06:08)
--- NOTE | 2020-03-08 06:24 | CT Scan Report ---
CT abd pelvis IV con only CT DOSE: 682.38 mGy.cm HISTORY: Pain abd pain, hemorrhoids, diarrhea TECHNIQUE: Multiaxial CT images of the abdomen and pelvis were performed following the use of intrave nous contrast. A dose lowering technique was utilized adhering to the principles of ALARA. COMPARISON STUDY: 11/21/2017 FINDINGS: Lung bases are clear. Small hiatal hernia. Mild biliary ductal prominence post cholecystectomy. This is unchanged. Several bilateral renal cysts also unchanged from the prior study. Nonobstructive bowel pattern. Normal appendix. Nonobstructive bowel pattern. Bladder is midline. Moderate perirectal infiltrative change suggesting proctitis. No evidence for nydia inable abscess or collection. IMPRESSION: 1. Moderate rectal proctitis. 2. Moderate perirectal infiltrative change. 3. No evidence for abscess or collection. 4. Additional findings of no acute significance. ACT 112: Negative or not required by law. The above report was generated using voice recognition software. It may contain grammatical, syntax or spelling errors. Electronically signed by: Venancio Palma M.D. 03/08/2020 6:23 AM
[2020-03-08 06:46] LABS: Hematocrit (blood only) 45.8 % (42-52); Hemoglobin 15.3 g/dL (14.0-18.0); Mean Corpuscular Hemoglobin 29.5 pg (25-34); Mean Corpuscular Hgb Conc 33.4 g/dL (32-36); Mean Corpuscular Volume 88.2 fL (80-100); RDW Standard Deviation 48.3 fL (36.4-46.3); Red Blood Count 5.19 M/uL (4.7-6.1)
[2020-03-08 06:53] LABS: Mean Platelet Volume 11.8 fL (7.4-10.4); Platelet Count 94 K/uL (130-400)
[2020-03-08 07:16] LABS: Basophils # (auto) 0.02 K/uL (0-0.2); Basophils % (auto) 0.2 %; Eosinophils # (auto) 0.09 K/uL (0-0.5); Immature Granulocytes # (auto) 0.01 K/uL (0.00-0.02); Immature Granulocytes % (auto) 0.1 %; Lymphocytes # (auto) 1.87 K/uL (1.2-3.4); Lymphocytes % (auto) 21.7 %; Monocytes # (auto) 0.68 K/uL (0.11-0.59); Monocytes % (auto) 7.9 %; Neutrophils # (auto) 5.93 K/uL (1.4-6.5); Neutrophils % (auto) 69.1 %
[2020-03-08 07:22] LABS: BUN Creatinine Ratio 20.4 (10-20); Calcium 8.6 mg/dl (8.5-10.1); Creatinine Clr Calc Pharmacy 52.9 ml/min; Est GFR (African American) 67.4; Est GFR (Non-African American) 58.1; Potassium 3.8 mmol/L (3.5-5.1)
[2020-03-08] MEDS: CARBIDOPA/LEVODOPA 25/100MG TAB PO SCH ×3 (08:10→20:33)
[2020-03-08] MEDS: lisinopriL 5 MG TAB PO SCH (08:10)
[2020-03-08] MEDS: FINASTERIDE 5 MG TAB PO SCH (08:11)
[2020-03-08] MEDS: MAGNESIUM OXIDE 400 MG TAB PO SCH ×2 (08:11→20:35)
[2020-03-08] MEDS: PANTOprazole 40 MG TAB PO SCH (08:11)
[2020-03-08] MEDS: INSULIN GLARGINE SOLOSTAR 100 UNITS/ML 3 ML PEN SC SCH ×2 (08:12→20:43)
[2020-03-08] MEDS: ASPIRIN 81 MG ECTAB PO SCH (08:12)
[2020-03-08] MEDS: TAMSULOSIN HCL 0.4 MG CAP PO SCH (08:12)
[2020-03-08] MEDS: APIXABAN 2.5 MG TAB PO SCH ×2 (08:12→20:35)
[2020-03-08] MEDS: PREGABALIN 100 MG CAP PO SCH ×3 (08:19→20:41)
[2020-03-08] MEDS ORDERED: DULOXETINE HCL 60 MG CAP PO SCH (09:00)
[2020-03-08 09:31] LABS: Estimated Average Glucose 146 mg/dl; Hemoglobin A1C 6.7 % (4.5-5.6)
--- NOTE | 2020-03-08 10:48 | Hospitalist Progress Note ---
Date of Service March 08, 2020 Assessment & Plan Admission and Anticipated Discharge Date Admission Date: March 08, 2020 Subjective Patient is feeling better. Had a bowel movement today. no hemorrhoid noted. Results & Data Results & Data ([facility]) Vital Signs (Past 12 Hours) Vital Signs Temp Pulse Pulse Resp BP BP Pulse Ox 03/08/20 07:23 36.3 C L 80 18 134/78 98 03/08/20 04:00 168/106 H 03/08/20 01:46 64 183/119 H 03/08/20 01:15 36.3 C L 71 16 206/94 H 197/108 H 98 03/08/20 00:34 59 L 19 181/124 H 93 03/07/20 22:56 73 14 188/114 H 97 PG Care Time/CCT Total # of Minutes Spent Total Time Spent with Patient: Total time spent is greater than 50% in coordination of care (as documented) at patient's floor/unit and/or counseling patient: Coding
[2020-03-08] MEDS ORDERED: Nursing to Pharmacy Communication SCH (11:45)
[2020-03-08] MEDS: INSULIN ASPART 100 UNITS/ML 3 ML PEN SC SCH ×3 (11:50→20:44)
--- NOTE | 2020-03-08 12:57 | Gastrointestinal Consultation ---
Date of Consultation March 08, 2020 Assessment & Plan (1) Proctitis: -Will treat hemorrhoids with a bowel regimen/anusol, however discussed with patient that CT findings are new since his old colonoscopy and he could consider a colonoscopy for further evaluation. He would like to think about this and will provide an answer for Dr. Fan when he rounds this afternoon. Of note, stercoral proctitis is a concern given his history of severe neurologic complications from CVAs, however patient is denying constipation. Supervising Physician Co-Signing Physician Notes Agree with SARA Blackman Abd: Soft, NT, ND, No appreciable HSM Continue current therapy with stool regimen No plans for Colonoscopy at this time History of Present Illness Reason for Consultation: Proctitis Attending Physician: Pramod Burris History of Present Illness Patient is an 84 yo male with rectal pain for which GI has been consulted. He reports that he developed rectal pain abruptly last night. In the past, he has dealt with hemorrhoids but he notes that the pain suddenly became unbearable and did not feel like his hemorrhoids had previously felt. He denies diarrhea, constipation, abdominal pain. He reports occasional rectal bleeding. His last colonoscopy was in 2015 and did not indicate any acute issues. He denies family history of colorectal cancer. He is unsure if he wishes to proceed with invasive testing at this time, but notes he does want his symptoms to improve. He denies unintentional weight loss. He has a history of multiple strokes, CKD3, DM2, ischemic optic neuropathy, memory loss. He has a history of chronic diarrhea listed in his chart, but he denies diarrhea to me today. H/H is within normal limits. A CT scan indicated infiltrative changes and thickening concerning for proctitis. Allergies Allergy/AdvReac Type Severity Reaction Status Date / Time hydrocodone AdvReac Mild Dizziness, Verified 03/07/20 23:21 [From Panlor Nausea (hydrocodone-acetamin)] oxycodone AdvReac Mild NAUSEA/VOMI Verified 03/07/20 23:21 TING tramadol AdvReac Mild confusion Verified 03/07/20 23:21 Home Medications Home Medications Medication Instructions Recorded Confirmed Type aspirin [Aspir-81] 81 mg PO QAM 01/09/19 03/07/20 History omeprazole 40 mg PO QAM 01/09/19 03/07/20 History acetaminophen [Tylenol Extra 500 mg PO Q6H PRN 01/18/19 03/07/20 History Strength] blood sugar diagnostic #100 ea 03/04/19 02/16/20 Rx apixaban 2.5 mg tablet 2.5 mg PO BID #180 tab 08/25/19 03/07/20 Rx atorvastatin 80 mg tablet 80 mg PO HS #90 tab 08/25/19 03/07/20 Rx carbidopa 25 mg-levodopa 100 mg 0.5 tab PO TID #45 tab 08/25/19 03/07/20 Rx tablet finasteride 5 mg tablet 5 mg PO QAM #90 tab 08/25/19 03/07/20 Rx levothyroxine 50 mcg tablet 50 mcg PO QAM #90 tab 08/25/19 03/07/20 Rx tamsulosin 0.4 mg capsule 0.4 mg PO QAM #90 cap 08/25/19 03/07/20 Rx insulin NPH-regular 70-30 U-100 20 units SQ BID #15 ml MDD 48 units 09/02/19 03/07/20 Rx insulin 100 unit/mL subcutaneous pen duloxetine 60 mg capsule,delayed 60 mg PO DAILY cap 10/21/19 03/07/20 History release lisinopril 5 mg tablet 5 mg PO DAILY tab 10/21/19 03/07/20 History pen needle, diabetic 32 gauge x #100 ea 01/03/20 02/16/20 Rx 5/32" diclofenac sodium 1 % topical gel 4 gm TOP QID #100 gm 02/16/20 03/07/20 Rx pregabalin 100 mg capsule 100 mg PO TID #90 cap 02/16/20 03/07/20 Rx magnesium oxide 400 mg PO BID #60 tab 02/22/20 03/07/20 Rx Patient History Medical History Abnormal tympanic membrane Left and Right BPH (benign prostatic hyperplasia) 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 Yates--per son pt does not have any deficits Depression Difficulty swallowing DM type 2 (diabetes mellitus, type 2) (Chronic) GERD (gastroesophageal reflux disease) (Chronic) Hearing deficit History of atrial fibrillation History of cellulitis HTN (hypertension) Hyperlipidemia (Chronic) Hypothyroid (Chronic) Jaw disease Kidney stones Memory impairment Myocardial Infarction 2003--follows with Dr. [place] Neuropathy (Chronic) On anticoagulant therapy eliquis daily Osteoarthritis Stroke x3 total---follows with Dr. Yates Upper respiratory infection Surgical History History of bilateral cataract extraction History of esophagogastroduodenoscopy (EGD) History of kidney surgery History of lithotripsy x2 History of lumbar laminectomy History of tooth extraction [place] [address] [facility] [place] History Father Diabetes Coronary heart disease Mother Diabetes Coronary heart disease Sister Breast cancer Brother Coronary heart disease Son Family history of diabetes mellitus Family/Other Family history of diabetes mellitus grandson Other No family history of adverse response to anesthesia Social History Smoking Status: Never smoker Second Hand Exposure: No; Hx Alcohol Use: No Hx Substance Use: No Preferred Language: Icelandic Communication Ability: Effective Hearing Ability: Use of Hearing Aid Nursing Director Required: No Beliefs That Will Affect Care: None marital status: Unknown Current Living Situation: Family Current Living Situation Comment: son sherie milan and daughter in law current occupational status: retired Feels Safe at Home: Yes Seatbelt Use: always Sunscreen Use: No Review of Systems Constitutional: no fever and no chills Eyes: no problem reported Ear, Nose, Mouth, Throat: no problem reported Respiratory: no cough and no dyspnea Cardiovascular: no chest pain Gastrointestinal: + blood in stools; no abdominal pain, no vomiting, no change in bowel habits, no constipation and no diarrhea/loose stools rectal pain Musculoskeletal: + joint pain Integumentary: no rash Neurologic: + abnormal speech and + memory loss Hematologic / Lymphatic: no unexplained weight loss Physical Exam Constitutional: WD/WN, vitals as above Eyes: PERRL, conjunctivae normal, anicteric sclerae ENMT: Ears: + hearing impairment Neck: normal visual inspection Respiratory: normal respiratory effort, lungs clear to auscultation Cardiovascular: RRR, no murmur, no edema Gastrointestinal (Abdomen): normal bowel sounds, soft, nontender, no hepatosplenomegaly Musculoskeletal: Head/Neck/Chest: normocephalic Skin: no rashes, warm and dry Neurologic: Speech / Cognition: + abnormal speech Psychiatric: Orientation: alert and oriented x 3 Results & Data ([facility]) Vital Signs (Past 12 Hours) Vital Signs Temp Pulse Pulse Resp BP BP Pulse Ox 03/08/20 07:23 36.3 C L 80 18 134/78 98 03/08/20 04:00 168/106 H 03/08/20 01:46 64 183/119 H 03/08/20 01:15 36.3 C L 71 16 206/94 H 197/108 H 98 PG Care Time/CCT Total # of Minutes Spent Total Time Spent with Patient: Total time spent is greater than 50% in coordination of care (as documented) at patient's floor/unit and/or counseling patient: Coding Level of Care Code 83444 Initial Inpt Care Lvl 3 Diagnoses Proctitis K62.89
[2020-03-08] MEDS: METHYLCELLULOSE POWDER 454 GM JAR PO SCH ×2 (13:24→20:35)
[2020-03-08] MEDS: POLYETHYLENE (MIRALAX) 17 GM PACK PO SCH (13:24)
[2020-03-08] MEDS ORDERED: HYDROCORTISONE ACETATE 25 MG SUPP PR PRN (13:30)
[2020-03-08] MEDS: PSYLLIUM 58.6% POWDER PACKET PO SCH (14:07)
[2020-03-08] MEDS: ATORVASTATIN 40 MG TAB PO SCH (20:34)
[2020-03-09] MEDS: CIPROFLOXACIN / D5W 400 MG/200 ML BAG IV SCH ×2 (01:43→13:46)
--- NOTE | 2020-03-09 02:38 | Billing Data ---
Date of Service March 09, 2020 Coding Level of Care Code 25671 Initial Inpt Care Lvl 3
[2020-03-09] MEDS: LEVOTHYROXINE SODIUM 50 MCG TABLET PO SCH (06:24)
[2020-03-09] MEDS: ACETAMINOPHEN 325 MG TAB PO PRN (07:27)
[2020-03-09] MEDS: INSULIN ASPART 100 UNITS/ML 3 ML PEN SC SCH ×4 (08:44→21:16)
[2020-03-09] MEDS: INSULIN GLARGINE SOLOSTAR 100 UNITS/ML 3 ML PEN SC SCH ×2 (08:45→21:56)
[2020-03-09] MEDS: METHYLCELLULOSE POWDER 454 GM JAR PO SCH ×3 (08:47→21:55)
[2020-03-09] MEDS: CARBIDOPA/LEVODOPA 25/100MG TAB PO SCH ×3 (08:47→21:48)
[2020-03-09] MEDS: lisinopriL 5 MG TAB PO SCH (08:47)
[2020-03-09] MEDS: POLYETHYLENE (MIRALAX) 17 GM PACK PO SCH ×2 (08:48→21:55)
[2020-03-09] MEDS: PANTOprazole 40 MG TAB PO SCH (08:48)
[2020-03-09] MEDS: FINASTERIDE 5 MG TAB PO SCH (08:48)
[2020-03-09] MEDS: ASPIRIN 81 MG ECTAB PO SCH (08:49)
[2020-03-09] MEDS: MAGNESIUM OXIDE 400 MG TAB PO SCH ×2 (08:49→21:49)
[2020-03-09] MEDS: PSYLLIUM 58.6% POWDER PACKET PO SCH (08:49)
[2020-03-09] MEDS: TAMSULOSIN HCL 0.4 MG CAP PO SCH (08:49)
[2020-03-09] MEDS: APIXABAN 2.5 MG TAB PO SCH ×2 (08:49→21:48)
[2020-03-09] MEDS: PREGABALIN 100 MG CAP PO SCH ×3 (08:59→21:54)
[2020-03-09] MEDS ORDERED: MAGNESIUM CITRATE 296 ML/BTL PO STA (10:16)
--- NOTE | 2020-03-09 10:22 | Gastroenterology Progress Note ---
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 -Continue to treat hemorrhoids with Anusol BID x 14 days -Continue Miralax but increase to 17 gm BID -Add Colace 100 mg BID & Dulcolax -1 time dose of Magnesium Citrate (1 bottle) -Metamucil 1 tablespoon daily in 8 oz noncarbonated beverage. Admission and Anticipated Discharge Date Admission Date: March 08, 2020 Supervising Physician Co-Signing Physician Notes Agree with SARA Blackman Abd: Soft, NT, ND, +BS Continue bowel regimen No plans for endoscopic workup Subjective Patient is an 84 yo male with rectal pain, rectal bleeding, & CT findings of proctitis. He reports constipation today but denies bleeding. H/H is stable at 15.3/45.8. He has taken Miralax and Metamucil without improvement of his constipation. Review of Systems Constitutional: no fever Gastrointestinal: + abdominal pain and + constipation; no blood in stools rectal pain Physical Exam ENMT: Ears: + hearing impairment Neck: normal visual inspection Respiratory: normal respiratory effort, lungs clear to auscultation Cardiovascular: RRR, no murmur, no edema Gastrointestinal (Abdomen): normal bowel sounds, soft, nontender, no hepatosplenomegaly Psychiatric: Orientation: alert Results & Data Results & Data ([facility]) Vital Signs (Past 12 Hours) Vital Signs Temp Pulse Resp BP Pulse Ox 03/09/20 07:55 73 150/88 H 03/09/20 07:30 36.4 C L 69 16 160/83 H 96 03/08/20 22:55 36.3 C L 65 16 106/64 97 PG Care Time/CCT Total # of Minutes Spent Total Time Spent with Patient: Total time spent is greater than 50% in coordination of care (as documented) at patient's floor/unit and/or counseling patient: Coding Level of Care Code 17936 Subseq Hosp Care Lvl 2 Diagnoses Proctitis K62.89
[2020-03-09] MEDS: DOCUSATE SODIUM/SENNA 50/8.6MG TAB PO SCH (10:36)
--- NOTE | 2020-03-09 21:44 | Hospitalist Progress Note ---
Date of Service March 09, 2020 Assessment & Plan (1) Chronic ischemic vertebrobasilar artery brainstem stroke: (1) Chronic ischemic vertebrobasilar artery brainstem stroke: Sahil is a 84-year-old male with a past medical history of multiple strokes with chronic ischemic vertebrobasilar brainstem stroke, CKD, diabetes mellitus, anemia, diabetic neuropathy, A. fib on anticoagulation, DJD, and GERD who presents with 1 day of rectal pain and difficulty voiding. Rectal pain 2/[address]: Mild rectal thickening and perirectal stranding suspicious for proctitis, scattered colonic diverticuli. Afebrile, hemodynamically stable Cipro dose reduced IV 400 mg twice daily Bladder scan as needed, follow clinically CBC every morning -Patient tolerating fiber and miralax. Patient continuing to have distended abdomen depsit BM. Will continue with the laxatives. Appreciate input from GI. NAVEED on CKD Creatinine elevated to 1.6, baseline approximately 1.4-1.5 500 cc NSS bolus prior to transfer from ED Fluids below Avoid nephrotoxins BMP daily History of chronic ischemic vertebrobasilar stroke, with 2 additional CVAs and residual cognitive and speech deficits Continue aspirin 81 mg daily Continue carbidopa/levodopa [employer]ACH consult pending No acute exacerbation of symptoms Continue atorvastatin 80 mg nightly Follow clinically A. fib with history of stroke Continue apixaban 2.5 mg p.o. 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 He has had a bowel movement this AM. D/W nurse, hiw abdomen still appears to be distended. Review of Systems Review of Systems: All systems reviewed & are unremarkable except as noted in HPI & below Physical Exam Constitutional: WD/WN, vitals as above well developed Eyes: PERRL, conjunctivae normal, anicteric sclerae ENMT: external ear and nose normal, oropharynx normal Neck: trachea midline, no thyromegaly Respiratory: normal respiratory effort, lungs clear to auscultation Cardiovascular: Rate/Rhythm: + irregularly irregular Gastrointestinal (Abdomen): Inspection/Auscultation: + abdomen distended Percussion/Palpation: + abdomen firm Musculoskeletal: no cyanosis or clubbing, extremities motor strength 5/5 Neurologic: PERRL, EOMI, accommodation nl, no face palsy, no dysarthria Psychiatric: Orientation: alert, oriented to person and oriented to place Results & Data Results & Data ([facility]) Vital Signs (Past 12 Hours) Vital Signs Temp Pulse Resp BP Pulse Ox 03/09/20 15:07 36.4 C L 78 18 116/71 97 PG Care Time/CCT Total # of Minutes Spent Total Time Spent with Patient: Total time spent is greater than 50% in coordination of care (as documented) at patient's floor/unit and/or counseling patient: Coding Level of Care Code 40504 Subseq Hosp Care Lvl 2 Diagnoses Chronic ischemic vertebrobasilar artery brainstem stroke I69.30 Diabetes mellitus E11.9 Gait disturbance R26.9 Ischemic optic neuropathy H47.019 Mental status change resolved Z86.59 Myalgia and myositis Gout M10.9 Diabetic neuropathy E11.40 Anemia D64.9 Memory impairment R41.3 Acute renal insufficiency N28.9 Proctitis K62.89 Time Spent (min) 25
[2020-03-09] MEDS: ATORVASTATIN 40 MG TAB PO SCH (21:49)
[2020-03-09] MEDS: DOCUSATE SODIUM 100 MG CAP PO SCH (21:54)
[2020-03-10] MEDS: CIPROFLOXACIN / D5W 400 MG/200 ML BAG IV SCH ×2 (02:14→14:08)
[2020-03-10] MEDS: LEVOTHYROXINE SODIUM 50 MCG TABLET PO SCH (05:52)
[2020-03-10] MEDS: PANTOprazole 40 MG TAB PO SCH (08:50)
[2020-03-10] MEDS: FINASTERIDE 5 MG TAB PO SCH (08:51)
[2020-03-10] MEDS: APIXABAN 2.5 MG TAB PO SCH ×2 (08:51→20:49)
[2020-03-10] MEDS: lisinopriL 5 MG TAB PO SCH (08:51)
[2020-03-10] MEDS: ASPIRIN 81 MG ECTAB PO SCH (08:51)
[2020-03-10] MEDS: CARBIDOPA/LEVODOPA 25/100MG TAB PO SCH ×3 (08:52→20:50)
[2020-03-10] MEDS: TAMSULOSIN HCL 0.4 MG CAP PO SCH (08:52)
[2020-03-10] MEDS: MAGNESIUM OXIDE 400 MG TAB PO SCH ×2 (08:53→20:49)
[2020-03-10] MEDS: INSULIN GLARGINE SOLOSTAR 100 UNITS/ML 3 ML PEN SC SCH ×2 (08:55→20:58)
[2020-03-10] MEDS: INSULIN ASPART 100 UNITS/ML 3 ML PEN SC SCH ×4 (08:55→20:59)
[2020-03-10] MEDS: DOCUSATE SODIUM 100 MG CAP PO SCH ×2 (08:59→20:54)
[2020-03-10] MEDS: PREGABALIN 100 MG CAP PO SCH ×3 (09:00→20:54)
[2020-03-10] MEDS: PSYLLIUM 58.6% POWDER PACKET PO SCH (09:02)
[2020-03-10] MEDS: METHYLCELLULOSE POWDER 454 GM JAR PO SCH ×3 (09:02→20:58)
[2020-03-10] MEDS: POLYETHYLENE (MIRALAX) 17 GM PACK PO SCH ×3 (09:06→21:01)
--- NOTE | 2020-03-10 10:06 | Gastroenterology Progress Note ---
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 -Continue to treat hemorrhoids with Anusol BID x 14 days. -Continue Miralax but increase to 17 gm BID. This should be continued on discharge. -Continue Metamucil 1 tablespoon daily on discharge. -Continue Colace 100 mg BID on discharge. -Ok to use prn Dulcolax as an outpatient. -Encourage po hydration. Thank you for allowing us to participate in the care of this patient. If you should have any further questions or concerns, do not hesitate to contact us at [employer] [id number] or [phone]. Admission and Anticipated Discharge Date Admission Date: March 08, 2020 Subjective Patient is an 84 yo male with proctitis likely related to constipation. He reports that he is now moving his bowels quite well after a bottle of Magnesium Citrate. He notes that he has had 7 bowel movements and feels like he has to go more. He denies further bleeding. He reports his hemorrhoids are sore from the frequent bowel movements, but the rectal pain he was experiencing previously has improved. Review of Systems Constitutional: no fever and no chills Gastrointestinal: no abdominal pain and no blood in stools Physical Exam Constitutional: WD/WN, vitals as above ENMT: Ears: + hearing impairment Respiratory: normal respiratory effort Gastrointestinal (Abdomen): normal bowel sounds, soft, nontender, no hepatosplenomegaly Neurologic: Speech / Cognition: + abnormal speech Psychiatric: Orientation: alert Results & Data Results & Data ([facility]) Vital Signs (Past 12 Hours) Vital Signs Temp Pulse Resp BP Pulse Ox 03/10/20 07:32 36.6 C 61 18 167/98 H 96 03/09/20 23:58 36.5 C 68 16 153/89 H 97 PG Care Time/CCT Total # of Minutes Spent Total Time Spent with Patient: Total time spent is greater than 50% in coordination of care (as documented) at patient's floor/unit and/or counseling patient: Coding Level of Care Code 79582 Subseq Hosp Care Lvl 2 Diagnoses Proctitis K62.89
--- NOTE | 2020-03-10 12:08 | XRay Report ---
KUB HISTORY: abdominal distention COMPARISON: Abdomen and pelvis CT 03/07/2020. FINDINGS: The bowel gas pattern is unremarkable. There are no dilated loops of small bowel to suggest an obstruction. There are 2 small stones within the left kidney with the largest in the lower pole measuring 4 mm. No ureteral calculi. Poststernotomy changes and prior cholecystectomy are again noted . Heart well-formed stool seen within the proximal colon. No pneumoperitoneum or pneumatosis. IMPRESSION: 1. No evidence for bowel obstruction. 2. Moderate well-formed stool within the proximal colon. 3. Left-sided nephrolithiasis. ACT 112: Negative or not required by law. Electronically signed by: Guy Burdick M.D. 03/10/2020 12:06 PM
[2020-03-10] MEDS: DOCUSATE SODIUM/SENNA 50/8.6MG TAB PO SCH (12:59)
[2020-03-10] MEDS: ATORVASTATIN 40 MG TAB PO SCH (20:49)
--- NOTE | 2020-03-10 22:40 | Hospitalist Progress Note ---
Date of Service March 10, 2020 Assessment & Plan (1) Chronic ischemic vertebrobasilar artery brainstem stroke: (1) Chronic ischemic vertebrobasilar artery brainstem stroke: Sahil is a 84-year-old male with a past medical history of multiple strokes with chronic ischemic vertebrobasilar brainstem stroke, CKD, diabetes mellitus, anemia, diabetic neuropathy, A. fib on anticoagulation, DJD, and GERD who presents with 1 day of rectal pain and difficulty voiding. Rectal pain 2/[address]: Mild rectal thickening and perirectal stranding suspicious for proctitis, scattered colonic diverticuli. Afebrile, hemodynamically stable Cipro dose reduced IV 400 mg twice daily Bladder scan as needed, follow clinically CBC every morning -Patient tolerating fiber and miralax. -Abdomen appears to be softer today. Will continue with the laxatives. Appreciate input from GI: possible colonoscopy as per GI. NAVEED on CKD Creatinine normalized, was initally elevated at 1.6;, baseline approximately 1.4-1.5 Avoid nephrotoxins History of chronic ischemic vertebrobasilar stroke, with 2 additional CVAs and residual cognitive and speech deficits Continue aspirin 81 mg daily Continue carbidopa/levodopa [employer]NAGER consult completed No acute exacerbation of symptoms Continue atorvastatin 80 mg nightly Follow clinically A. fib with history of stroke Continue apixaban 2.5 mg p.o. twice daily Adequately rate controlled without beta blockers/calcium channel blockers Type 2 diabetes mellitus with neuropathy On 70/30 insulin prior to admission Converted to weight-based basal bolus, glargine 8 units twice daily with ISS goal 1100, CF 45, ratio 16 Glucose checks AC/at bedtime BMP daily A1c 6.7 Continue pregabalin 100 mg 3 times daily, duloxetine 60 mg daily History of urinary retention Continue finasteride 5 mg daily Continue tamsulosin 0.4 mg daily History of GERD Continue omeprazole 40 mg daily Disposition: MedSur CODE STATUS: DNR/DNI, discussed with patient DVT prophylaxis, on apixaban as above (2) Diabetes mellitus: (3) Gait disturbance: (4) Ischemic optic neuropathy: (5) Mental status change resolved: (6) Myalgia and myositis: (7) Gout: (8) Diabetic neuropathy: (9) Anemia: (10) Memory impairment: (11) Acute renal insufficiency: (12) Proctitis: Admission and Anticipated Discharge Date Admission Date: March 08, 2020 Subjective Patient reports having 7 firm stool yesterday evening. Today they are more loose. He is feeling better. Review of Systems Review of Systems: All systems reviewed & are unremarkable except as noted in HPI & below Physical Exam Physical Exam: Constitutional: WD/WN, vitals as above well developed Eyes: PERRL, conjunctivae normal, anicteric sclerae ENMT: external ear and nose normal, oropharynx normal Neck: trachea midline, no thyromegaly Respiratory: normal respiratory effort, lungs clear to auscultation Cardiovascular: Rate/Rhythm: + irregularly irregular Gastrointestinal (Abdomen): Inspection/Auscultation: + abdomen distended Percussion/Palpation: + abdomen softer Musculoskeletal: no cyanosis or clubbing, extremities motor strength 5/5 Neurologic: PERRL, EOMI, accommodation nl, no face palsy, no dysarthria Psychiatric: Orientation: alert, oriented to person and oriented to place Results & Data Results & Data ([facility]) Vital Signs (Past 12 Hours) Vital Signs Temp Pulse Resp BP Pulse Ox 03/10/20 15:08 36.5 C 67 17 132/78 96 PG Care Time/CCT Total # of Minutes Spent Total Time Spent with Patient: Total time spent is greater than 50% in coordination of care (as documented) at patient's floor/unit and/or counseling patient: Coding Level of Care Code 17651 Subseq Hosp Care Lvl 2 Diagnoses Chronic ischemic vertebrobasilar artery brainstem stroke I69.30 Diabetes mellitus E11.9 Gait disturbance R26.9 Ischemic optic neuropathy H47.019 Mental status change resolved Z86.59 Myalgia and myositis Gout M10.9 Diabetic neuropathy E11.40 Anemia D64.9 Memory impairment R41.3 Acute renal insufficiency N28.9 Proctitis K62.89 Time Spent (min) 25
[2020-03-11] MEDS: CIPROFLOXACIN / D5W 400 MG/200 ML BAG IV SCH ×2 (02:24→14:18)
[2020-03-11] MEDS: LEVOTHYROXINE SODIUM 50 MCG TABLET PO SCH (05:55)
[2020-03-11 07:27] LABS: Creatinine Clr Calc Pharmacy 46.1 ml/min; Est GFR (Non-African American) 49.2
[2020-03-11] MEDS: INSULIN GLARGINE SOLOSTAR 100 UNITS/ML 3 ML PEN SC SCH ×2 (08:53→21:24)
[2020-03-11] MEDS: INSULIN ASPART 100 UNITS/ML 3 ML PEN SC SCH ×4 (08:54→21:25)
[2020-03-11] MEDS: DOCUSATE SODIUM/SENNA 50/8.6MG TAB PO SCH (09:19)
[2020-03-11] MEDS: PREGABALIN 100 MG CAP PO SCH ×3 (09:19→21:24)
[2020-03-11] MEDS: DOCUSATE SODIUM 100 MG CAP PO SCH (09:19)
[2020-03-11] MEDS: POLYETHYLENE (MIRALAX) 17 GM PACK PO SCH (09:20)
[2020-03-11] MEDS: PSYLLIUM 58.6% POWDER PACKET PO SCH (09:21)
[2020-03-11] MEDS: CARBIDOPA/LEVODOPA 25/100MG TAB PO SCH ×3 (09:21→21:22)
[2020-03-11] MEDS: FINASTERIDE 5 MG TAB PO SCH (09:22)
[2020-03-11] MEDS: APIXABAN 2.5 MG TAB PO SCH ×2 (09:22→21:24)
[2020-03-11] MEDS: TAMSULOSIN HCL 0.4 MG CAP PO SCH (09:22)
[2020-03-11] MEDS: MAGNESIUM OXIDE 400 MG TAB PO SCH (09:22)
[2020-03-11] MEDS: PANTOprazole 40 MG TAB PO SCH (09:23)
[2020-03-11] MEDS: ASPIRIN 81 MG ECTAB PO SCH (09:23)
[2020-03-11] MEDS: lisinopriL 5 MG TAB PO SCH (09:23)
[2020-03-11] MEDS: METHYLCELLULOSE POWDER 454 GM JAR PO SCH ×3 (09:23→21:26)
[2020-03-11] MEDS ORDERED: HYDROCORTISONE HC 2.5% CRM 30GM TUBE EXT ONE (10:14)
--- NOTE | 2020-03-11 15:13 | Hospitalist Progress Note ---
Date of Service March 11, 2020 Assessment & Plan (1) Proctitis: Rectal pain 2/[address] a/p on 03/07 mild rectal thickening and perirectal stranding suspicious for proctitis, scattered colonic diverticuli. Cipro dose reduced IV 400 mg twice daily - Now having multiple, loose BMs from Mg citrate. - Continue hemorrhoid treatment per GI. - GI consulted - Appreciate recs - Continue Cipro for now (2) Chronic ischemic vertebrobasilar artery brainstem stroke: History of chronic ischemic vertebrobasilar stroke, with 2 additional CVAs and residual cognitive and speech deficits. Continue aspirin 81 mg daily Continue carbidopa/levodopa [employer] consult completed on 03/08 -> Easy to chew diet with standard aspiration precautions. Continue atorvastatin 80 mg nightly (3) Atrial fibrillation: Continue apixaban 2.5 mg p.o. twice daily Adequately rate controlled without beta blockers/calcium channel blockers (4) Diabetes mellitus: On 70/30 insulin prior to admission. A1c was 6.7% this admission. Converted to weight-based basal bolus, glargine 8 units twice daily with ISS goal 1100, CF 45, ratio 16 Glucose checks AC/at bedtime Continue pregabalin 100 mg 3 times daily, duloxetine 60 mg daily (5) Gout: No active flare at this time. - Monitor (6) Hypertension: BP presently 180/90. - Continue lisinopril; titrate as needed (7) BPH (benign prostatic hyperplasia): No LUTS reported. - Continue tamsulosin & finasteride (8) Hypothyroid: TSH was 3.5 in 2019. No signs/symptoms of hypo-/hyperthyroidism. - Continue home Synthroid 50 mcg - Retest TSH in AM (9) DVT prophylaxis: On apixaban for afib Admission and Anticipated Discharge Date Admission Date: March 08, 2020 Subjective Has considerable rectal pain this morning. Reports it is as bad as presentation. Reports no fevers/chills, chest pain, shortness of breath, abdominal pain, nausea, or vomiting. Physical Exam Constitutional: WD/WN, vitals as above Eyes: EOM intact bilaterally; no conjunctival abnormality ENMT: external ear and nose normal, oropharynx normal Neck: trachea midline, no thyromegaly normal visual inspection Respiratory: normal respiratory effort, lungs clear to auscultation no respiratory distress Cardiovascular: RRR, no murmur, no edema Gastrointestinal (Abdomen): Inspection/Auscultation: abdomen normal to inspection and normal bowel sounds; abdomen not distended Rectal Exam: + hemorrhoids (No bleeding noted. Some skin tags as well.) Musculoskeletal: no cyanosis or clubbing, extremities motor strength 5/5 Skin: no rashes, warm and dry Neurologic: moves all extremities and awake Psychiatric: Orientation: alert, oriented to person and cooperative Results & Data Results & Data ([facility]) Vital Signs (Past 12 Hours) Vital Signs Temp Pulse Resp BP Pulse Ox 03/11/20 07:24 36.7 C 68 15 178/92 H 97 PG Care Time/CCT Total # of Minutes Spent Total Time Spent with Patient: Total time spent is greater than 50% in coordination of care (as documented) at patient's floor/unit and/or counseling patient: Coding Level of Care Code 36228 Subseq Hosp Care Lvl 3 Diagnoses Proctitis K62.89 Chronic ischemic vertebrobasilar artery brainstem stroke I69.30 Atrial fibrillation I48.91 Diabetes mellitus E11.9 Gout M10.9 Hypertension I10 Hypertension type: essential hypertension BPH (benign prostatic hyperplasia) N40.0 Hypothyroid E03.9 Hypothyroidism type: acquired DVT prophylaxis Z29.9 (1) Hypothyroid Hypothyroidism type: acquired Qualified Code(s): E03.9 - Hypothyroidism, unspecified (2) Hypertension Hypertension type: essential hypertension Qualified Code(s): I10 - Essential (primary) hypertension
[2020-03-11] MEDS: ATORVASTATIN 40 MG TAB PO SCH (21:24)
[2020-03-11] MEDS: HYDROCORTISONE HC 2.5% CRM 30GM TUBE EXT SCH (21:26)
[2020-03-12] MEDS: LEVOTHYROXINE SODIUM 50 MCG TABLET PO SCH (06:26)
[2020-03-12 06:53] LABS: Hematocrit (blood only) 42.4 % (42-52); Hemoglobin 15.2 g/dL (14.0-18.0); Mean Corpuscular Hemoglobin 31.5 pg (25-34); Mean Corpuscular Hgb Conc 35.8 g/dL (32-36); Mean Corpuscular Volume 87.8 fL (80-100); RDW Coefficient of Variation 14.8 % (11.5-14.5); RDW Standard Deviation 47.7 fL (36.4-46.3); Red Blood Count 4.83 M/uL (4.7-6.1); White Blood Count 6.95 K/uL (4.8-10.8)
[2020-03-12 06:59] LABS: Appearance Urine Clear (Clear); Bilirubin Urine Negative (Negative); Blood Urine Negative (Negative); Color Urine Yellow; Glucose Urine UA Negative (Negative); Ketones Urine Negative (Negative); Leukocyte Esterase Urine Negative (Negative); Nitrite Urine Negative (Negative); Protein Urine Negative (Negative); Urobilinogen Urine Negative (Negative)
[2020-03-12 07:05] LABS: Mean Platelet Volume 11.8 fL (7.4-10.4); Platelet Count 79 K/uL (130-400)
[2020-03-12 07:23] LABS: BUN Creatinine Ratio 16.1 (10-20); Calcium 8.3 mg/dl (8.5-10.1); Creatinine Clr Calc Pharmacy 46.1 ml/min; Est GFR (Non-African American) 49.2; Magnesium 2.2 mg/dl (1.8-2.4); Potassium 4.1 mmol/L (3.5-5.1)
[2020-03-12 07:35] LABS: Thyroid Stimulating Hormone 1.24 uIu/ml (0.300-4.500)
--- NOTE | 2020-03-12 08:22 | XRay Report ---
XR chest 1V portable CLINICAL HISTORY: Confusion COMPARISON STUDY: December 2018 FINDINGS: The heart is mildly enlarged. There are postsurgical changes of a midline sternotomy. There is mild vascular prominence without evidence of overt failure. There is no focal pulmonary consolida tion. There are no pleural effusions.[ IMPRESSION: Mild cardiomegaly. No evidence of focal pulmonary consolidation ACT 112: Negative or not required by law. Electronically signed by: Bruce Olvera M.D. 03/12/2020 8:21 AM
[2020-03-12] MEDS ORDERED: HYDROCORTISONE ACETATE 25 MG SUPP PR SCH (09:00)
[2020-03-12] MEDS: lisinopriL 5 MG TAB PO SCH (09:10)
[2020-03-12] MEDS: METHYLCELLULOSE POWDER 454 GM JAR PO SCH ×2 (09:10→12:58)
[2020-03-12] MEDS: HYDROCORTISONE HC 2.5% CRM 30GM TUBE EXT SCH (09:10)
[2020-03-12] MEDS: APIXABAN 2.5 MG TAB PO SCH (09:10)
[2020-03-12] MEDS: CARBIDOPA/LEVODOPA 25/100MG TAB PO SCH ×2 (09:11→12:57)
[2020-03-12] MEDS: TAMSULOSIN HCL 0.4 MG CAP PO SCH (09:11)
[2020-03-12] MEDS: ASPIRIN 81 MG ECTAB PO SCH (09:11)
[2020-03-12] MEDS: PANTOprazole 40 MG TAB PO SCH (09:11)
[2020-03-12] MEDS: FINASTERIDE 5 MG TAB PO SCH (09:11)
[2020-03-12] MEDS: INSULIN ASPART 100 UNITS/ML 3 ML PEN SC SCH ×2 (09:12→13:02)
[2020-03-12] MEDS: INSULIN GLARGINE SOLOSTAR 100 UNITS/ML 3 ML PEN SC SCH (09:14)
[2020-03-12] MEDS: DOCUSATE SODIUM/SENNA 50/8.6MG TAB PO SCH (09:30)
[2020-03-12] MEDS: PREGABALIN 100 MG CAP PO SCH ×2 (09:30→12:56)
--- NOTE | 2020-03-12 16:08 | Discharge Summary ---
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 fib on anticoagulation, DJD, and GERD who presents with 1 day of rectal pain and difficulty voiding. History limited by memory deficits and cognitive status 2/2 prior strokes. Patient reports that he was in his otherwise normal state of health until this morning when he had to go to the bathroom, but could not and experienced urinary retention. He also had experienced rectal discomfort and pain for 1 day, unsure if this has been affected by any bowel movements. He has not experienced these symptoms previously. He denies shortness of breath, chest pain, and other symptoms. He has 2 strokes and lives at home, with his son next door. He denies fever, chills, sweats denies chest pain, chest pressure, palpitations, syncope, presyncope. Denies acute change in strength, weakness, or any new neurologic deficits. He endorses some discomfort when urinating, with a pressure-like quality. Medical history: Reviewed Surgical history: Reviewed Family history: Noncontributory Medications: Reviewed, last taken morning prior to admission Allergies: Reviewed CODE STATUS: DNR/DNI, discussed with patient Principal Diagnosis Hemorrhoids Stercoral colitis of the rectum Discharge Exam Constitutional WD/WN, vitals as above Eyes EOM intact bilaterally; no conjunctival abnormality ENMT external ear and nose normal, oropharynx normal Neck trachea midline, no thyromegaly normal visual inspection Respiratory normal respiratory effort, lungs clear to auscultation no respiratory distress Cardiovascular RRR, no murmur, no edema Gastrointestinal (Abdomen) Inspection/Auscultation: abdomen normal to inspection and normal bowel sounds; abdomen not distended Rectal Exam: + hemorrhoids (No bleeding noted. Some skin tags as well.) Musculoskeletal no cyanosis or clubbing, extremities motor strength 5/5 Skin no rashes, warm and dry Neurologic moves all extremities and awake Psychiatric Orientation: alert, oriented to person and cooperative Discharge Data Allergies Allergy/AdvReac Type Severity Reaction Status Date / Time hydrocodone AdvReac Mild Dizziness, Verified 03/07/20 23:21 [From Panlor Nausea (hydrocodone-acetamin)] oxycodone AdvReac Mild NAUSEA/VOMI Verified 03/07/20 23:21 TING tramadol AdvReac Mild confusion Verified 03/07/20 23:21 Consultations 03/08/20 00:14 ED Decision to Admit Stat 03/08/20 08:26 Consult Gastroenterology Routine Ordered Studies 03/07/20 21:42 CT abd pelvis IV con only Urgent Hospital Course (1) Proctitis: Rectal pain 2/[address] a/p on 03/07 mild rectal thickening and perirectal stranding suspicious for proctitis, scattered colonic diverticuli. With overflow diarrhea that resolved. Initially on Cipro; stopped on 03/11 for presumed non-infectious cause. - Seen by GI who felt this was hemorrhoids and stercoral proctitis from feces. He was started on a generous bowel regimen and standing Lynda-jim (hydrocortisone 2.5%). By 03/12, he was having formed, but soft BMs and no rectal pain. - Discharged with bowel regimen to keep BMs soft and non-impacted as well as hemorrhoid cream for future flares. (2) Thrombocytopenia: Platelets appear chronically low ~100 (back to 2017) but ranging as low as 85. At baseline on admission. - Down to 79 on discharge without any indication of bleeding. (3) Chronic ischemic vertebrobasilar artery brainstem stroke: History of chronic ischemic vertebrobasilar stroke, with 2 additional CVAs and residual cognitive and speech deficits. Continue aspirin 81 mg daily Continue carbidopa/levodopa [employer] consult completed on 03/08 -> Easy to chew diet with standard aspiration precautions. Continue atorvastatin 80 mg nightly (4) Atrial fibrillation: Continue apixaban 2.5 mg p.o. twice daily Adequately rate controlled without beta blockers/calcium channel blockers (5) Diabetes mellitus: On 70/30 insulin prior to admission. A1c was 6.7% this admission. Converted to weight-based basal bolus, glargine 8 units twice daily with ISS goal 1100, CF 45, ratio 16 Glucose checks AC/at bedtime Continue pregabalin 100 mg 3 times daily, duloxetine 60 mg daily (6) Gout: No active flare at this time. - Monitor (7) Hypertension: BP presently 180/90. - Continue lisinopril; titrate as needed (8) BPH (benign prostatic hyperplasia): No LUTS reported. - Continue tamsulosin & finasteride (9) Hypothyroid: TSH was 3.5 in 2019. No signs/symptoms of hypo-/hyperthyroidism. - Continue home Synthroid 50 mcg - Retested TSH this admission at 1.2. (10) DVT prophylaxis: On apixaban for afib Total Time Total Time Spent Total Time Spent (In Minutes): 45 Discharge Plan Discharge Items Patient Disposition: Home - Home Health Services Reason For Visit: PROCTITIS, URINARY RETENTION Discharge Diagnosis: Rectal irritation from constipation Activity: Resume your previous activity Non-emergency contact: Primary Care Provider Call non-emergency contact if: your symptoms worsen Follow-up/Referrals: Alexx Comer MD [Primary Care Provider] - Diet: Carb Consistent or DM2 and Heart Healthy Addtl Attending Provider Instructions: You were admitted with rectal pain. This was likely caused by two issues: 1) You had hemorrhoids that were quite painful and flared up. This was treated effectively with lotion and suppositories, and we can send you home with both. 2) You had some irritation of your rectum which we think was caused by constipation. We have given you some stool softeners, and these seem to be working because you had a good, normal BM today without any pain. The physical therapists worked with you, and you did very well! We did give you a script for a walker which you could use at home to stay steady. For your constipation, please use Metamucil daily to help keep fiber up. Also, you can use Miralax (usually a purple top bottle) once or twice a day. The goal would be to have 1 soft, [id number] BM per day. For the hemorrhoids, we have send both a cream and suppository to the pharmacy. These are both [id number]-[id number] as well and can be used as needed in the future. Pending Studies at Discharge: No Stand-Alone Forms: My [employer], Smoking Cessation Medications and DC Order Prescriptions: New Fiber Therapy (m-cell/sugar) 2 gram/19 gram Powder 2 g PO DAILY Qty: 454 RF: 0 hydrocortisone [Proctosol HC] 2.5 % Cream With Perineal Applicator 1 applic EXT BID 5 Days Qty: 30 RF: 0 hydrocortisone acetate [Anucort-HC] 25 mg Suppository 25 mg [place] DAILY Qty: 24 RF: 0 polyethylene glycol 3350 [Miralax] 17 gram/dose powder 17 g PO DAILY Qty: 238 RF: 0 Continued (DME) Accu-Chek Tsering Plus test strp strip See Dose Instructions .ROUTE .MEDSUPPLY Qty: 100 RF: 3 Eliquis 2.5 mg tablet 2.5 mg PO BID Qty: 180 RF: 3 atorvastatin 80 mg tablet 80 mg PO HS Qty: 90 RF: 3 carbidopa-levodopa [Sinemet] 25-100 mg tablet 0.5 tab PO TID Qty: 45 RF: 1 finasteride 5 mg tablet 5 mg PO QAM Qty: 90 RF: 3 levothyroxine 50 mcg tablet 50 mcg PO QAM Qty: 90 RF: 3 tamsulosin 0.4 mg capsule 0.4 mg PO QAM Qty: 90 RF: 3 (DME) pen needle, diabetic [BD Ultra-Fine Mary Carmen Pen Needle] 32 gauge x 5/32" needle See Dose Instructions .ROUTE .MEDSUPPLY Qty: 100 RF: 3 magnesium oxide 400 mg magnesium tablet 400 mg PO BID Qty: 60 RF: 5 pregabalin 100 mg capsule 100 mg PO TID Qty: 90 RF: 3 diclofenac sodium [Voltaren] 1 % gel 4 gm TOP QID Qty: 100 RF: 3 Novolin 70-30 FlexPen U-100 100 unit/mL (70-30) insulin pen 20 units SQ BID MDD 48 units Qty: 15 RF: 5 duloxetine 60 mg capsule,delayed release(DR/EC) 60 mg PO DAILY RF: 0 lisinopril 5 mg tablet 5 mg PO DAILY RF: 0 aspirin [Aspir-81] 81 mg Tablet,Delayed Release (Dr/Ec) 81 mg PO QAM RF: 0 omeprazole 20 mg capsule,delayed release(DR/EC) 40 mg PO QAM RF: 0 acetaminophen [Tylenol Extra Strength] 500 mg Tablet 500 mg PO Q6H PRN (Reason: Pain) RF: 0 Discharge Orders: Discharge Order (Routine); Ordered 03/12/20 Ordered By: Bull Paniagua/Other Patient Handouts: High Blood Sugar (Hyperglycemia), Hypoglycemia (Low Blood Sugar), Managing Type 2 Diabetes Admission Data Admit Date/Time: 03/08/20 00:51 Attending Provider: Bull Barnes Admit Provider: Pancho Feliciano Primary Care Provider: Alexx Comer Other Providers: Jesse Suarez ; Fran Tellez ; Paulina,Home Health Other Interventions: Discharge Summary Assessment (RN) Last Done: 03/12/20 11:43 Coding Level of Care Code D/C Day Management >30 mins Diagnoses Proctitis K62.89 Thrombocytopenia D69.6 Chronic ischemic vertebrobasilar artery brainstem stroke I69.30 Atrial fibrillation I48.91 Diabetes mellitus E11.9 Gout M10.9 Hypertension I10 Hypertension type: essential hypertension BPH (benign prostatic hyperplasia) N40.0 Hypothyroid E03.9 Hypothyroidism type: acquired DVT prophylaxis Z29.9
== END 2020-03-12 14:36 | disposition home health service (06) ==
LOC: ED 20:36 → SUATTDRO 03-08 00:51 → INTOOBSV 03-08 00:51 → 3N 03-08 00:51

== ENCOUNTER 2020-09-14 17:09 | Inpatient (IN) ==
[2020-09-14] MEDS ORDERED: OPTIRAY 320 125ml IV ONE (17:22)
--- NOTE | 2020-09-14 17:30 | CT Scan Report ---
CT OF THE HEAD WITHOUT CONTRAST CLINICAL HISTORY: Stroke Alert COMPARISON STUDY: Head CT January 18, 2019. CT DOSE: 614.27 mGy.cm TECHNIQUE: Helical axial images of the head were obtained without IV contrast. Automated exposure con trol was utilized for the study. A dose lowering technique was utilized adhering to the principles o f ALARA. FINDINGS: No acute intracranial hemorrhage, midline shift or mass effect is present. Ventricular syst em is stable. Basilar cisterns are patent. Encephalomalacia within the right temporal lobe is unchang ed. White matter hypodensities are similar to prior exam and suggest follow vessel disease. There are no findings to suggest acute dural sinus thrombosis or acute territorial infarct. A possible polyp w ithin the left nasal cavity is again noted. Bilateral mastoid air cells are partially opacified. This is unchanged. IMPRESSION: No acute intracranial findings. No change in appearance of the brain. ACT 112: Negative or not required by law. Electronically signed by: Daniel Boyer M.D. 09/14/2020 5:28 PM
--- NOTE | 2020-09-14 17:44 | CT Scan Report ---
CT ANGIOGRAPHY OF THE NECK WITH CONTRAST CLINICAL HISTORY: CVA COMPARISON STUDY: CTA of the neck January 10, 2019. Technique: CT angiography of the carotid and vertebral arteries was obtained using OptiraKarmarama 320 IV and 3D reconstruction on an independent workstation. NASCET criteria was utilized. Automated exposure c ontrol was utilized for the study. A dose lowering technique was utilized adhering to the principles of ALARA. Findings: Medialization of the right vocal cord was shown on CT of January 10, 2019. Lung apices are zoraida ar. There is no cervical lymphadenopathy. No cervical spine fracture is noted. There is no significan t stenosis within the bilateral common carotid or cervical internal carotid arteries. There is mild p laque within these vessels. This exam is mildly compromised by motion artifact. 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 This is unchanged. This is congenital. The right vertebral artery is dominant. Mo derate stenosis of the proximal right vertebral artery is noted. There is no dissection within the ma samantha vessels of the neck. The CTA of the head will be reported separately. IMPRESSION: 1. No stenosis within the bilateral common carotid or cervical internal carotid arteries. 2. Dominant right vertebral artery. Moderate stenosis of the proximal right vertebral artery. Diminut miguel left vertebral artery which is unchanged. 3. No dissection within the major vessels of the neck. 4. Medialization of the right vocal cord which is unchanged since prior exam. This suggests right voc al cord paralysis. ACT 112: Negative or not required by law. Electronically signed by: Daniel Boyer M.D. 09/14/2020 5:43 PM
--- NOTE | 2020-09-14 17:45 | Emergency Department Note ---
Impression & Plan Altered mental status ED Provider Note NAME: LUIS ALBERTO DIAZ AGE: 84 SEX: M ARRIVES VIA: Walk-In INFORMANT: Patient's son at the bedside ED PROVIDER(S): Mireya Arthur MD CHIEF COMPLAINT: AMS, unable to speak PLAN: Disposition: Inpatient Condition: Guarded Referral: Telestroke, hospitalist MEDICAL DECISION MAKING: This patient was evaluated and appeared to be in no significant distress. IV access was obtained and laboratory work was drawn. The patient was placed on hall monitor and noted to be in a rate controlled atrial fibrillation. Stroke alert was called from triage. Pt was sent for CT/CTA of head and neck. Consultation with the telestroke attending Dr. Nam at [facility] was placed. Pt was evaluated and noted to be anticoagulated with apixaban, out of TPA window and noted to have no large vessel occlusion. There was no indication for transfer. Pt was given labetalol 10 mg IV and started on a cardene gtt for BP management. Pt seemed to have improvement of symptoms. Pt case was d/w the hispitalist service for further management. Triage Nursing notes reviewed. Additional history obtained from Prior medical records reviewed Vital Signs: reviewed and remarkable for no significant abnormalities Differential diagnosis: Infection, dehydration, metabolic abnormality, hypo/hyperglycemia, electrolyte disturbance, anemia, hypoxia, cardiac sources, intracerebral event, toxicologic, neurologic, as well as other pathologies. ER treatment provided: stroke alert- telestroke evaluation Diagnostics interpreted by me: ECG: atrial fibrillation at 84 bpm, nonspecific ST changes, no PVC, no PAC, Q waves inferiorly, QTC 458-normal. Cardiac Monitoring:an order for cardiac monitoring was placed and pt was noted to be in a rate controlled atrial fib at 88 bpm Laboratory studies: See below Imaging studies: XR chest 1V portable CLINICAL HISTORY: stroke alert COMPARISON STUDY: Chest CT November 11, 2017. Chest radiograph March 11, 2020. FINDINGS: Lung volumes are at the lower limits of normal. This is unchanged. No pneumothorax or pleural effusion is noted. There is no consolidation or evidence for pulmonary edema. Median sternotomy wires are noted. Cardiomegaly is unchanged. The appearance of the chest is unchanged. There is a small hiatal hernia. IMPRESSION: No acute cardiopulmonary findings. No change in appearance of the chest. ACT 112: Negative or not required by law. Electronically signed by: Daniel Boyer M.D. 09/14/2020 6:01 PM Dictated: 09/14/20 1759Transcribed: 09/14/[address] OF THE HEAD WITHOUT CONTRAST CLINICAL HISTORY: Stroke Alert COMPARISON STUDY: Head CT January 18, 2019. CT DOSE: 614.27 mGy.cm TECHNIQUE: Helical axial images of the head were obtained without IV contrast. Automated exposure control was utilized for the study. A dose lowering technique was utilized adhering to the principles of ALARA. FINDINGS: No acute intracranial hemorrhage, midline shift or mass effect is present. Ventricular system is stable. Basilar cisterns are patent. Encephalomalacia within the right temporal lobe is unchanged. White matter hypodensities are similar to prior exam and suggest follow vessel disease. There are no findings to suggest acute dural sinus thrombosis or acute territorial infarct. A possible polyp within the left nasal cavity is again noted. Bilateral mastoid air cells are partially opacified. This is unchanged. IMPRESSION: No acute intracranial findings. No change in appearance of the brain. ACT 112: Negative or not required by law. Electronically signed by: Daniel Boyer M.D. 09/14/2020 5:28 PM Dictated: 09/14/20 1725Transcribed: 09/14/20 172 CTA ANGIOGRAPHY OF THE HEAD CLINICAL HISTORY: CVA COMPARISON STUDY: Head CT January 18, 2019. CTA of the head January 10, 2019. TECHNIQUE: Helical axial images of the head were obtained following uneventful intravenous administration of 118 cc of Optiray 320. Sagittal and coronal reconstructions were viewed as well as maximal intensity projections on an independent 3-D workstation. Automated exposure control was utilized for the study. A dose lowering technique was utilized adhering to the principles of ALARA. CT DOSE: 600.81 mGy.cm FINDINGS: No acute intracranial hemorrhage, midline shift or mass effect is present. Both mastoid air cells are largely opacified. This is unchanged. A suspected polyp within the left nasal cavity is again noted. Severe multifocal stenoses within the intracranial vessels are noted. These are similar to CTA of January 10, 2019. These are most pronounced within the bilateral posterior cerebral arteries as well as the intracranial portion of the left vertebral artery which is diminutive with suspected multifocal occlusion. These occlusions appear unchanged since prior examination. No new sites of vessel occlusion are noted. No intraluminal thrombus is noted. There is moderate plaque within the intracranial vessels. There is no intracranial aneurysm. IMPRESSION: 1. No significant change since CTA of January 10, 2019. Multifocal severe stenoses within the intracranial vessels due to atherosclerosis, as described above. 2. No new sites of vessel occlusion. No intraluminal thrombus or intracranial aneurysm. ACT 112: Negative or not required by law. Electronically signed by: Daniel Boyer M.D. 09/14/2020 5:48 PM Dictated: 09/14/20 1743Transcribed: 09/14/201742 CT ANGIOGRAPHY OF THE NECK WITH CONTRAST CLINICAL HISTORY: CVA COMPARISON STUDY: CTA of the neck January 10, 2019. Technique: CT angiography of the carotid and vertebral arteries was obtained using CertainraRdio 320 IV and 3D reconstruction on an independent workstation. NASCET criteria was utilized. Automated exposure control was utilized for the study. A dose lowering technique was utilized adhering to the principles of ALARA. Findings: Medialization of the right vocal cord was shown on CT of January 10, 2019. Lung apices are clear. There is no cervical lymphadenopathy. No cervical spine fracture is noted. There is no significant stenosis within the bilateral common carotid or cervical internal carotid arteries. There is mild plaque within these vessels. This exam is mildly compromised by motion artifact. 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 The right vertebral artery is dominant. Moderate stenosis of the proximal right v ertebral artery is noted. There is no dissection within the major vessels of the neck. The CTA of the head will be reported separately. IMPRESSION: 1. No stenosis within the bilateral common carotid or cervical internal carotid arteries. 2. Dominant right vertebral artery. Moderate stenosis of the proximal right vertebral artery. Diminutive left vertebral artery which is unchanged. 3. No dissection within the major vessels of the neck. 4. Medialization of the right vocal cord which is unchanged since prior exam. This suggests right vocal cord paralysis. ACT 112: Negative or not required by law. Electronically signed by: Daniel Boyer M.D. 09/14/2020 5:43 PM Dictated: 09/14/201733Transcribed: 09/14/201733 Consultation(s): Telestroke consult Hospitalist HPI: 84/M arrives for evaluation of altered mental status, difficulty speaking. Per patient's son the patient was well at 1230 when he last saw his father. At 415 when he arrived home, his father was sitting on the couch and did not recognize his son. He was unable to speak and seemed very confused. He has had a stroke in the past so his son "scooped him up" and brought him to the hospital. Patient has been in his usual state of health but does have chronic medical condition is atrial fibrillation for which he is anticoagulated with apixaban. Currently patient is unable to follow commands or give any comprehensible verbal response. ROS: See above HPI for pertinent positives & negatives. A total of 10 systems reviewed and were otherwise negative. PAST MEDICAL HISTORY:See Below PAST SURGICAL HISTORY:See Below FAMILY HISTORY:See Below SOCIAL HISTORY:See Below HOME MEDICATIONS:See Below ALLERGIES:See Below VITALS:See Below PHYSICAL EXAMINATION: Vital signs reviewed. General: Chronically ill-appearing 84-year-old male, in no significant distress. HEENT: No scleral icterus, PERRLA, neck supple. Atraumatic. Cardiovascular: Irregular but rate controlled, no extra sounds. Pulmonary: Clear to auscultation bilaterally, normal work of breathing. Abdomen: Soft, nontender, nondistended, positive bowel sounds. Musculoskeletal: Atraumatic, no peripheral edema. Neurologic: Patient awake alert and unable to follow commands. Moves all extrem ities equally although seemingly has a right sided neglect. Per son he has a profound right-sided hearing loss however. Cranial nerves II through XII are grossly intact by my limited exam. Skin: Warm, dry, no rash I have personally spent greater than 45 minutes of critical care time in the direct management of this patient. This includes bedside care, interpretation of diagnostic studies, and testing, discussion with consultants, patient, and family members, and other required patient management activities. This 45 minutes is in excess of all separately billable procedures. 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 Yates--per son pt does not have any deficits Depression Difficulty swallowing DM type 2 (diabetes mellitus, type 2) Encounter for pre-operative examination Foreign body in lip GERD (gastroesophageal reflux disease) Hearing deficit History of cellulitis HTN (hypertension) Hyperlipidemia Hypothyroid Jaw disease Kidney stones Memory impairment Myocardial Infarction 2003--follows with Dr. [place] Neuropathy On anticoagulant therapy eliquis daily Osteoarthritis Paroxysmal atrial flutter Productive cough Stroke x3 total---follows with Dr. Yates Transient hypotension Upper respiratory infection UTI (urinary tract infection) Surgical History History of bilateral cataract extraction History of esophagogastroduodenoscopy (EGD) History of kidney surgery History of lithotripsy x2 History of lumbar laminectomy History of tooth extraction Hx of CABG 2003 @ [facility] [place] Family History Father Diabetes Coronary heart disease Mother Diabetes Coronary heart disease Sister Breast cancer Brother Coronary heart disease Son Family history of diabetes mellitus Family/Other Family history of diabetes mellitus grandson Other No family history of adverse response to anesthesia Social History Smoking Status: Unknown if ever smoked Second Hand Exposure: No; Do You Dip or Chew Tobacco: No; Tobacco Cessation Education Requested by Patient: No Hx Alcohol Use: No Hx Substance Use: No Preferred Language: Urdu Communication Ability: Effective Communication Ability Comment: unable to assess Hearing Ability: Use of Hearing Aid 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 Beliefs That Will Affect Care: None marital status: Unknown Current Living Situation: Family Current Living Situation Comment: son sherie diaz and daughter in law current occupational status: retired Feels Safe at Home: Yes Seatbelt Use: always Sunscreen Use: No Assistive Devices: None Allergies Allergies Allergy/AdvReac Type Severity Reaction Status Date / Time hydrocodone AdvReac Mild Dizziness, Verified 09/14/20 19:19 [From Panlor Nausea (hydrocodone-acetamin)] oxycodone AdvReac Mild NAUSEA/VOMI Verified 09/14/20 19:19 TING tramadol AdvReac Mild confusion Verified 09/14/20 19:19 Home Meds Home Medications Medication Instructions Recorded Confirmed aspirin [Aspir-81] 81 mg PO QAM 01/09/19 09/14/20 omeprazole 40 mg PO QAM 01/09/19 09/14/20 acetaminophen [Tylenol Extra 500 mg PO Q6H PRN 01/18/19 09/14/20 Strength] duloxetine 60 mg capsule,delayed 60 mg PO DAILY cap 10/21/19 09/14/20 release lisinopril 5 mg tablet 5 mg PO DAILY tab 10/21/19 09/14/20 hydrocortisone acetate [Anucort-HC] 25 mg NE DAILY PRN 09/14/20 09/14/20 magnesium oxide 400 mg PO DAILY 09/14/20 09/14/20 polyethylene glycol 3350 [Miralax] 17 g PO DAILY PRN 09/14/20 09/14/20 Previous Rx's Medication Instructions Recorded carbidopa 25 mg-levodopa 100 mg 0.5 tab PO TID #45 tab 08/25/19 tablet pregabalin 100 mg capsule 100 mg PO TID #90 cap 02/16/20 methylcellulose (with sugar) 2 g PO DAILY #454 g 03/12/20 [Fiber Therapy (m-cell/sugar)] insulin NPH-regular 70-30 U-100 20 unit SQ BID #15 ml 05/09/20 insulin 100 unit/mL subcutaneous pen diclofenac sodium 1 % topical gel See Rx Instructions TOP QID #100 gm 08/14/20 apixaban 2.5 mg tablet 2.5 mg PO BID #180 tab 08/21/20 atorvastatin 80 mg tablet 80 mg PO HS #90 tab 08/21/20 finasteride 5 mg tablet 5 mg PO QAM #90 tab 08/21/20 levothyroxine 50 mcg tablet 50 mcg PO QAM #90 tab 08/21/20 tamsulosin 0.4 mg capsule 0.4 mg PO QAM #90 cap 08/21/20 Results & Data (ED) Vital Signs Vital Signs - 24 hr 09/14/20 23:00 09/14/20 23:46 Pulse Rate 89 Pulse Rate from SpO2 Sensor 92 H Respiratory Rate 14 Blood Pressure 174/120 H Blood Pressure Mean 138 Pulse Oximetry 94 88 L Oxygen Delivery Method Room Air Room Air Oxygen Flow Rate - Titration 2 Pulse Oximetry Post Tiitration 96 Home Medications Current Medication List: was personally reviewed by me Laboratory Data Attestation: I reviewed the patient's lab results. Result diagrams: 09/15/20 06:34 09/15/20 06:34 Lab Results 09/14/20 09/14/20 09/14/20 Range/Units 17:40 17:41 17:41 WBC 7.09 (4.8-10.8) K/uL RBC 4.93 (4.7-6.1) M/uL Hgb 15.1 (14.0-18.0) g/dL POC Hgb (14.0-18.0) g/dl Hct 43.2 (42-52) % POC Hct (42-52) % MCV 87.6 (80-100) fL MCH 30.6 (25-34) pg MCHC 35.0 (32-36) g/dL RDW Std Deviation 46.2 (36.4-46.3) fL RDW Coeff of Eben 14.4 (11.5-14.5) % Plt Count 96 L (130-400) K/uL MPV 11.9 H (7.4-10.4) fL Platelet Estimate Decreased L (Normal) PT 12.4 H (9.0-12.0) Seconds INR 1.2 H (0.9-1.1) APTT 29.1 (21.0-31.0) Seconds PTT Ratio 1.1 POC Sodium (135-144) mmol/L Sodium (136-145) mmol/L POC Potassium (3.3-5.0) mmol/L Potassium (3.5-5.1) mmol/L POC Chloride (101-112) mmol/L Chloride (98-107) mmol/L Carbon Dioxide (21-32) mmol/L POC Total CO2 (24-31) mmol/L Anion Gap (3-11) POC Anion Gap (16-25) mmol/L POC BUN (7-18) mg/dl BUN (7-18) mg/dl Creatinine (0.6-1.4) mg/dl POC Creatinine (0.6-1.3) mg/dl Est Cr Clr Drug Dosing ml/min Est GFR ( Amer) Est GFR (Non-Af Amer) BUN/Creatinine Ratio (10-20) Glucose (70-99) mg/dl POC Glucose 180 H (70-99) mg/dl POC Glucose (other) (70-99) mg/dl Calcium (8.5-10.1) mg/dl POC Ioniz Calcium Estevan (1.12-1.32) mmol/l Magnesium (1.8-2.4) mg/dl Total Bilirubin (0.2-1) mg/dl AST (15-37) U/L ALT (12-78) U/L Alkaline Phosphatase (45-117) U/L Total Protein (6.4-8.2) gm/dl Albumin (3.4-5.0) gm/dl Globulin (2.5-4.0) gm/dl Albumin/Globulin Ratio (0.9-2) Specimen Hemolysis COVID-19 Eval Order SARS-CoV-2, RNA, NAAT (NEGATIVE) 09/14/20 09/14/20 09/14/20 Range/Units 17:41 17:48 20:45 WBC (4.8-10.8) K/uL RBC (4.7-6.1) M/uL Hgb (14.0-18.0) g/dL POC Hgb 14.3 (14.0-18.0) g/dl Hct (42-52) % POC Hct 42 (42-52) % MCV (80-100) fL MCH (25-34) pg MCHC (32-36) g/dL RDW Std Deviation (36.4-46.3) fL RDW Coeff of Eben (11.5-14.5) % Plt Count (130-400) K/uL MPV (7.4-10.4) fL Platelet Estimate (Normal) PT (9.0-12.0) Seconds INR (0.9-1.1) APTT (21.0-31.0) Seconds PTT Ratio POC Sodium 136 (135-144) mmol/L Sodium 136 (136-145) mmol/L POC Potassium 4.2 (3.3-5.0) mmol/L Potassium 4.4 (3.5-5.1) mmol/L POC Chloride 101 (101-112) mmol/L Chloride 104 (98-107) mmol/L Carbon Dioxide 26 (21-32) mmol/L POC Total CO2 25 (24-31) mmol/L Anion Gap 8.0 (3-11) POC Anion Gap 14.0 L (16-25) mmol/L POC BUN 18 (7-18) mg/dl BUN 15 (7-18) mg/dl Creatinine 1.21 (0.6-1.4) mg/dl POC Creatinine 1.0 (0.6-1.3) mg/dl Est Cr Clr Drug Dosing 48.4 ml/min Est GFR ( Amer) 63.3 Est GFR (Non-Af Amer) 54.6 BUN/Creatinine Ratio 12.3 (10-20) Glucose 165 H (70-99) mg/dl POC Glucose (70-99) mg/dl POC Glucose (other) 156 H (70-99) mg/dl Calcium 8.8 (8.5-10.1) mg/dl POC Ioniz Calcium Estevan 1.11 L (1.12-1.32) mmol/l Magnesium 1.9 (1.8-2.4) mg/dl Total Bilirubin 1.1 H (0.2-1) mg/dl AST 27 (15-37) U/L ALT 46 (12-78) U/L Alkaline Phosphatase 92 (45-117) U/L Total Protein 6.5 (6.4-8.2) gm/dl Albumin 3.2 L (3.4-5.0) gm/dl Globulin 3.3 (2.5-4.0) gm/dl Albumin/Globulin Ratio 1.0 (0.9-2) Specimen Hemolysis COVID-19 Eval [facility] SARS-CoV-2, RNA, NAAT (NEGATIVE) 09/14/20 Range/Units 20:45 WBC (4.8-10.8) K/uL RBC (4.7-6.1) M/uL Hgb (14.0-18.0) g/dL POC Hgb (14.0-18.0) g/dl Hct (42-52) % POC Hct (42-52) % MCV (80-100) fL MCH (25-34) pg MCHC (32-36) g/dL RDW Std Deviation (36.4-46.3) fL RDW Coeff of Eben (11.5-14.5) % Plt Count (130-400) K/uL MPV (7.4-10.4) fL Platelet Estimate (Normal) PT (9.0-12.0) Seconds INR (0.9-1.1) APTT (21.0-31.0) Seconds PTT Ratio POC Sodium (135-144) mmol/L Sodium (136-145) mmol/L POC Potassium (3.3-5.0) mmol/L Potassium (3.5-5.1) mmol/L POC Chloride (101-112) mmol/L Chloride (98-107) mmol/L Carbon Dioxide (21-32) mmol/L POC Total CO2 (24-31) mmol/L Anion Gap (3-11) POC Anion Gap (16-25) mmol/L POC BUN (7-18) mg/dl BUN (7-18) mg/dl Creatinine (0.6-1.4) mg/dl POC Creatinine (0.6-1.3) mg/dl Est Cr Clr Drug Dosing ml/min Est GFR ( Amer) Est GFR (Non-Af Amer) BUN/Creatinine Ratio (10-20) Glucose (70-99) mg/dl POC Glucose (70-99) mg/dl POC Glucose (other) (70-99) mg/dl Calcium (8.5-10.1) mg/dl POC Ioniz Calcium Estevan (1.12-1.32) mmol/l Magnesium (1.8-2.4) mg/dl Total Bilirubin (0.2-1) mg/dl AST (15-37) U/L ALT (12-78) U/L Alkaline Phosphatase (45-117) U/L Total Protein (6.4-8.2) gm/dl Albumin (3.4-5.0) gm/dl Globulin (2.5-4.0) gm/dl Albumin/Globulin Ratio (0.9-2) Specimen Hemolysis COVID-19 Eval Order SARS-CoV-2, RNA, NAAT NEGATIVE (NEGATIVE) Administered Medications Apixaban (Apixaban 2.5 Mg Tab) 2.5 mg PO BID STEPH Stop: 10/15/20 20:59 Last Admin: 09/15/20 21:02 Dose: 2.5 mg Documented by: [id number] Aspirin (Aspirin 81 Mg Ectab) 81 mg PO QAM STEPH Stop: 10/15/20 16:29 Last Admin: 09/15/20 18:11 Dose: 81 mg Documented by: [id number] Atorvastatin Calcium (Atorvastatin 40 Mg Tab) 80 mg PO HS [facility] Stop: 10/15/20 20:59 Last Admin: 09/15/20 21:03 Dose: 80 mg Documented by: [id number] Carbidopa/Levodopa (Carbidopa/Levodopa 25/100mg Tab) 0.5 tab PO TID STEPH Stop: 10/15/20 08:59 Last Admin: 09/15/20 21:03 Dose: 0.5 tab Documented by: [id number] Admin: 09/15/20 13:51 Dose: 0.5 tab Documented by: [id number] Admin: 09/15/20 09:17 Dose: Not Given Documented by: [id number] Diclofenac Sodium (Diclofenac Sod 1% Gel 100 Gm Tube) 4 gm EXT QID STEPH Stop: 10/15/20 08:59 Last Admin: 09/15/20 21:04 Dose: 4 gm Documented by: [id number] Admin: 09/15/20 18:14 Dose: 4 gm Documented by: [id number] Admin: 09/15/20 09:18 Dose: 4 gm Documented by: [id number] Admin: 09/15/20 09:17 Dose: Not Given Documented by: [id number] Duloxetine HCl (Duloxetine Hcl 60 Mg Cap) 60 mg PO DAILY STEPH Stop: 10/15/20 16:29 Last Admin: 09/15/20 18:10 Dose: 60 mg Documented by: [id number] Finasteride (Finasteride 5 Mg Tab) 5 mg PO QAM STEPH Stop: 10/15/20 16:29 Last Admin: 09/15/20 18:12 Dose: 5 mg Documented by: [id number] Insulin Aspart (Insulin Aspart 100 Units/Ml 3 Ml Pen) 0 units SC ACHS [facility] Stop: 10/15/20 07:29 Last Admin: 09/15/20 21:05 Dose: Not Given Documented by: [id number] Cosigned by: [id number] Admin: 09/15/20 18:25 Dose: 7 units Documented by: [id number] Cosigned by: [id number] Admin: 09/15/20 12:39 Dose: 1 units Documented by: [id number] Cosigned by: [id number] Admin: 09/15/20 12:37 Dose: Not Given Documented by: [id number] Insulin Glargine (Insulin Glargine Solostar 100 Units/Ml 3 Ml Pen) 10 units SC BID [facility] Stop: 10/15/20 08:59 Last Admin: 09/15/20 21:05 Dose: 10 units Documented by: [id number] Cosigned by: [id number] Admin: 09/15/20 10:07 Dose: 10 units Documented by: [id number] Cosigned by: [id number] Levothyroxine Sodium (Levothyroxine Sodium 50 Mcg Tablet) 50 mcg PO DAILYBB STEPH Stop: 10/15/20 16:29 Last Admin: 09/15/20 18:12 Dose: 50 mcg Documented by: [id number] Methylcellulose (Methylcellulose Powder 454 Gm Jar) 2 gm PO DAILY STEPH Stop: 10/15/20 16:44 Last Admin: 09/15/20 18:13 Dose: 2 gm Documented by: [id number] Pregabalin (Pregabalin 100 Mg Cap) 100 mg PO TID STEPH Stop: 10/15/20 20:59 Last Admin: 09/15/20 21:03 Dose: 100 mg Documented by: [id number] Tamsulosin HCl (Tamsulosin Hcl 0.4 Mg Cap) 0.4 mg PO QAM [facility] Stop: 10/15/20 16:44 Last Admin: 09/15/20 18:14 Dose: 0.4 mg Documented by: [id number] Discontinued Medications Haloperidol Lactate (Haloperidol Lactate 5 Mg/Ml 1 Ml Vial) 2.5 mg IV NOW STA Stop: 09/14/20 21:02 Last Admin: 09/14/20 21:03 Dose: 2.5 mg Documented by: [id number] Haloperidol Lactate (Haloperidol Lactate 5 Mg/Ml 1 Ml Vial) Confirm Administered Dose 5 mg .ROUTE .STK-MED ONE Stop: 09/14/20 21:04 Last Admin: 09/14/20 21:20 Dose: Not Given Documented by: [id number] Nicardipine HCl 25 mg/ Sodium (Chloride) 250 mls @ 75 mls/hr IV .Q3H20M STEPH; Pr otocol Stop: 10/14/20 18:44 Last Titration: 09/15/20 00:51 Dose: 0 mg/hr, 0 mls/hr Documented by: [id number] Titration: 09/14/20 20:23 Dose: 0 mg/hr, 0 mls/hr Documented by: [id number] Titration: 09/14/20 20:00 Dose: 5 mg/hr, 50 mls/hr Documented by: [id number] Titration: 09/14/20 19:30 Dose: 7.5 mg/hr, 75 mls/hr Documented by: [id number] Titration: 09/14/20 19:15 Dose: 10 mg/hr, 100 mls/hr Documented by: [id number] Titration: 09/14/20 18:58 Dose: 7.5 mg/hr, 75 mls/hr Documented by: [id number] Admin: 09/14/20 18:46 Dose: 5 mg/hr, 50 mls/hr Documented by: [id number] Cosigned by: [id number] Lorazepam (Ativan) 0.5 mg in 1 mls @ 1 mls/min IV NOW STA Stop: 09/14/20 21:24 Last Admin: 09/14/20 21:29 Dose: 1 mls/min Documented by: [id number] Lorazepam (Ativan) 0.5 mg in 1 mls @ 1 mls/min IV NOW STA Stop: 09/14/20 22:05 Last Admin: 09/14/20 22:16 Dose: 1 mls/min Documented by: [id number] Lorazepam (Ativan) 1 mg in 2 mls @ 2 mls/min IV NOW STA Stop: 09/14/20 22:52 Last Admin: 09/14/20 22:58 Dose: 2 mls/min Documented by: [id number] Heparin Sodium/Dextrose (Heparin Sodium/Dextrose) 25,000 units in 500 mls @ 28 mls/hr IV .[id number] [facility]; Protocol Stop: 09/15/20 19:00 Last Titration: 09/15/20 19:26 Dose: 0 units/hr, 0 mls/hr Documented by: [id number] Cosigned by: [id number] Titration: 09/15/20 07:25 Dose: 1,400 units/hr, 28 mls/hr Documented by: [id number] Cosigned by: [id number] Admin: 09/15/20 04:32 Dose: 1,400 units/hr, 28 mls/hr Documented by: [id number] Cosigned by: [id number] Ioversol (Optiray 320 125ml) 118 ml IV ONCE ONE Stop: 09/14/20 17:23 Last Admin: 09/14/20 17:22 Dose: 118 ml Documented by: [id number] Labetalol HCl (Labetalol Hcl Iv 5 Mg/Ml 20ml) 10 mg IV NOW STA Stop: 09/14/20 18:31 Last Admin: 09/14/20 18:41 Dose: 10 mg Documented by: [id number] Cosigned by: [id number] Lorazepam (Lorazepam 2 Mg/4 Ml Vial) Confirm Administered Dose 2 mg .ROUTE .STK- MED ONE Stop: 09/14/20 21:27 Last Admin: 09/14/20 21:29 Dose: Not Given Documented by: [id number] Miscellaneous (Heparin Drip Stop Order) 1 ea N/A TODAY@1900 ONE Stop: 09/15/20 19:01 Last Admin: 09/15/20 21:02 Dose: 1 ea Documented by: [id number] Discharge Plan Visit Data Chief Complaint: Stroke/CVA Symptoms Stated Complaint: SOB, CHEST MIKE, UNABLE TO TALK ED Provider: Mireya Arthur Discharge Problem: Altered mental status Patient Disposition: Admitted As Inpatient Discharge Instructions Interventions: ED Discharge Assessment Last Done: 09/15/20 00:52
--- NOTE | 2020-09-14 17:50 | CT Scan Report ---
CTA ANGIOGRAPHY OF THE HEAD CLINICAL HISTORY: CVA COMPARISON STUDY: Head CT January 18, 2019. CTA of the head January 10, 2019. TECHNIQUE: Helical axial images of the head were obtained following uneventful intravenous administr ation of 118 cc of Optiray 320. Sagittal and coronal reconstructions were viewed as well as maximal i ntensity projections on an independent 3-D workstation. Automated exposure control was utilized for the study. A dose lowering technique was utilized adhering to the principles of ALARA. CT DOSE: 600.81 mGy.cm FINDINGS: No acute intracranial hemorrhage, midline shift or mass effect is present. Both mastoid air cells are largely opacified. This is unchanged. A suspected polyp within the left nasal cavity is ag ain noted. Severe multifocal stenoses within the intracranial vessels are noted. These are similar to CTA of January 10, 2019. These are most pronounced within the bilateral posterior cerebral arteries as well as the intracranial portion of the left vertebral artery which is diminutive with suspected mult ifocal occlusion. These occlusions appear unchanged since prior examination. No new sites of vessel o cclusion are noted. No intraluminal thrombus is noted. There is moderate plaque within the intracrani al vessels. There is no intracranial aneurysm. IMPRESSION: 1. No significant change since CTA of January 10, 2019. Multifocal severe stenoses within the intracrani al vessels due to atherosclerosis, as described above. 2. No new sites of vessel occlusion. No intraluminal thrombus or intracranial aneurysm. ACT 112: Negative or not required by law. Electronically signed by: Daniel Boyer M.D. 09/14/2020 5:48 PM
--- NOTE | 2020-09-14 18:02 | XRay Report ---
XR chest 1V portable CLINICAL HISTORY: stroke alert COMPARISON STUDY: Chest CT November 11, 2017. Chest radiograph March 11, 2020. FINDINGS: Lung volumes are at the lower limits of normal. This is unchanged. No pneumothorax or pleur al effusion is noted. There is no consolidation or evidence for pulmonary edema. Median sternotomy wi res are noted. Cardiomegaly is unchanged. The appearance of the chest is unchanged. There is a small hiatal hernia. IMPRESSION: No acute cardiopulmonary findings. No change in appearance of the chest. ACT 112: Negative or not required by law. Electronically signed by: Daniel Boyer M.D. 09/14/2020 6:01 PM
[2020-09-14 18:06] LABS: INR 1.2 (0.9-1.1); Partial Thromboplastin Ratio 1.1; Partial Thromboplastin Time 29.1 Seconds (21.0-31.0); Prothrombin Time 12.4 Seconds (9.0-12.0)
[2020-09-14 18:11] LABS: Hematocrit (blood only) 43.2 % (42-52); Hemoglobin 15.1 g/dL (14.0-18.0); Mean Corpuscular Hemoglobin 30.6 pg (25-34); Mean Corpuscular Volume 87.6 fL (80-100); RDW Coefficient of Variation 14.4 % (11.5-14.5); RDW Standard Deviation 46.2 fL (36.4-46.3); Red Blood Count 4.93 M/uL (4.7-6.1); White Blood Count 7.09 K/uL (4.8-10.8)
[2020-09-14 18:21] LABS: Albumin Level 3.2 gm/dl (3.4-5.0); BUN Creatinine Ratio 12.3 (10-20); Bilirubin,Total 1.1 mg/dl (0.2-1); Calcium 8.8 mg/dl (8.5-10.1); Creatinine Clr Calc Pharmacy 48.4 ml/min; Est GFR (African American) 63.3; Est GFR (Non-African American) 54.6; Globulin 3.3 gm/dl (2.5-4.0); Total Protein 6.5 gm/dl (6.4-8.2)
[2020-09-14 18:28] LABS: Potassium 4.4 mmol/L (3.5-5.1)
[2020-09-14] MEDS ORDERED: LABETALOL HCL IV 5 MG/ML 20ML IV STA (18:30)
[2020-09-14] MEDS ORDERED: STAT IV Infusion **Titration per Protocol STA (18:31)
[2020-09-14 18:34] LABS: Magnesium 1.9 mg/dl (1.8-2.4)
[2020-09-14] MEDS ORDERED: niCARdipine 25 MG in SODIUM CHLORIDE 0.9% 240 ML IV SCH (18:45)
[2020-09-14 18:58] LABS: Mean Platelet Volume 11.9 fL (7.4-10.4); Platelet Count 96 K/uL (130-400); Platelet Estimate Decreased (Normal)
[2020-09-14 19:58] LABS: iSTAT Hemoglobin 14.3 g/dl (14.0-18.0); iSTAT Ionized Calcium 1.11 mmol/l (1.12-1.32); iSTAT Potassium 4.2 mmol/L (3.3-5.0)
--- NOTE | 2020-09-14 20:35 | History & Physical Report ---
Date of Service September 14, 2020 Assessment & Plan (1) Altered mental status: 84 yo M vasculopath with hx CVA, CAD, HTN, HLD, DM2, Afib on eliquis, gout admitted for Hypertensive Emergency concerning for stroke, after presenting with confusion and strokelike symptoms. Altered Mental Status/Acute Encephalopathy - secondary to TIA vs hypertensive emergency - CT Head negative for acute hemorrhage, midline shift - CTA head and neck no change from prior studies - hx of encephalomalacia, corroborated on imaging. 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 currently ordered to help prevent motor spasms, can crush pill Present on Admission?: Yes (9) Dyslipidemia: repeat lipid panel in AM as above (10) Gout: (11) Coronary artery disease: holding statin while NPO holding ASA, plavix while NPO. restart after speech consult (12) Diabetic neuropathy: holding duloxetine and lyrica while npo, resume when able to swallow (13) Hypothyroid: holding levothyroxine while npo, resume when able to swallow (14) Proctitis: holding finasteride while npo DVT ppx: lovenox sq. Heparin drip if MRI negative for hemorrhage. FEN/GI: NPO until speech consult, can attempt bedside swallow evaluations Code Status: conditional code. OK for compressions, no intubation. 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 Son says last known well was at 12:30 pm today. He returned home at 4:30 pm and his father was having trouble speaking, didn't recognize his son, and wasn't following commands so he brought him to the ER. ED course significant for stroke alert called on arrival, initial BPs of 220s/118. received 10 mg iv labetalol, started on nicardipine drip with telestroke consult. did not receive tpa. HPI/ROS limited due to ongoing patient confusion. Primary Care Provider: Matt Comer MD Allergies Allergy/AdvReac Type Severity Reaction Status Date / Time hydrocodone AdvReac Mild Dizziness, Verified 09/14/20 19:19 [From Panlor Nausea (hydrocodone-acetamin)] oxycodone AdvReac Mild NAUSEA/VOMI Verified 09/14/20 19:19 TING tramadol AdvReac Mild confusion Verified 09/14/20 19:19 Home Medications Medication Instructions Recorded Confirmed Type aspirin [Aspir-81] 81 mg PO QAM 01/09/19 09/14/20 History omeprazole 40 mg PO QAM 01/09/19 09/14/20 History acetaminophen [Tylenol Extra 500 mg PO Q6H PRN 01/18/19 09/14/20 History Strength] carbidopa 25 mg-levodopa 100 mg 0.5 tab PO TID #45 tab 08/25/19 09/14/20 Rx tablet duloxetine 60 mg capsule,delayed 60 mg PO DAILY cap 10/21/19 09/14/20 History release lisinopril 5 mg tablet 5 mg PO DAILY tab 10/21/19 09/14/20 History pregabalin 100 mg capsule 100 mg PO TID #90 cap 02/16/20 09/14/20 Rx methylcellulose (with sugar) 2 g PO DAILY #454 g 03/12/20 09/14/20 Rx [Fiber Therapy (m-cell/sugar)] insulin NPH-regular 70-30 U-100 20 unit SQ BID #15 ml 05/09/20 09/14/20 Rx insulin 100 unit/mL subcutaneous pen diclofenac sodium 1 % topical gel See Rx Instructions TOP QID #100 gm 08/14/20 09/14/20 Rx apixaban 2.5 mg tablet 2.5 mg PO BID #180 tab 08/21/20 09/14/20 Rx atorvastatin 80 mg tablet 80 mg PO HS #90 tab 08/21/20 09/14/20 Rx finasteride 5 mg tablet 5 mg PO QAM #90 tab 08/21/20 09/14/20 Rx levothyroxine 50 mcg tablet 50 mcg PO QAM #90 tab 08/21/20 09/14/20 Rx tamsulosin 0.4 mg capsule 0.4 mg PO QAM #90 cap 08/21/20 09/14/20 Rx hydrocortisone acetate [Anucort-HC] 25 mg [place] DAILY PRN 09/14/20 09/14/20 History magnesium oxide 400 mg PO DAILY 09/14/20 09/14/20 History polyethylene glycol 3350 [Miralax] 17 g PO DAILY PRN 09/14/20 09/14/20 History Past Med/Surg History Medical History Abnormal tympanic membrane Left and Right Atrial fibrillation with rapid ventricular response Atrial flutter with rapid ventricular response Bilateral otitis externa BPH (benign prostatic hyperplasia) 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 Yates--per son pt does not have any deficits Depression Difficulty swallowing DM type 2 (diabetes mellitus, type 2) Encounter for pre-operative examination Foreign body in lip GERD (gastroesophageal reflux disease) Hearing deficit History of cellulitis HTN (hypertension) Hyperlipidemia Hypothyroid Jaw disease Kidney stones Memory impairment Myocardial Infarction 2003--follows with Dr. [place] Neuropathy On anticoagulant therapy eliquis daily Osteoarthritis Paroxysmal atrial flutter Productive cough Stroke x3 total---follows with Dr. Yates Transient hypotension Upper respiratory infection UTI (urinary tract infection) Surgical History History of bilateral cataract extraction History of esophagogastroduodenoscopy (EGD) History of kidney surgery History of lithotripsy x2 History of lumbar laminectomy History of tooth extraction Hx of CABG 2003 @ [facility] [place] Family History Father Diabetes Coronary heart disease Mother Diabetes Coronary heart disease Sister Breast cancer Brother Coronary heart disease Son Family history of diabetes mellitus Family/Other Family history of diabetes mellitus grandson Other No family history of adverse response to anesthesia Social History Smoking Status: Unknown if ever smoked Second Hand Exposure: No; Do You Dip or Chew Tobacco: No; Tobacco Cessation Education Requested by Patient: No Hx Alcohol Use: No Hx Substance Use: No Preferred Language: Serbian Communication Ability: Effective Communication Ability Comment: unable to assess Hearing Ability: Use of Hearing Aid Steel Roller Required: No Beliefs That Will Affect Care: None marital status: Unknown Current Living Situation: Family Current Living Situation Comment: son sherie milan and daughter in law current occupational status: retired Feels Safe at Home: Yes Seatbelt Use: always Sunscreen Use: No Assistive Devices: None Review of Systems Review of Systems: Unobtainable due to cognitive status Physical Exam Constitutional: + ill appearing and + language barrier Respiratory: + labored breathing; no respiratory distress, does not use accessory muscles, no cough and + not able to speak in complete sentence Auscultation: lungs clear to auscultation bilaterally; no crackles and no rhonchi Cardiovascular: Rate/Rhythm: regular rate and + irregularly irregular Heart Sounds: no murmur Gastrointestinal (Abdomen): Inspection/Auscultation: abdomen normal to inspection, + abdomen distended and normal bowel sounds Percussion/Palpation: abdomen soft; abdomen nontender and no guarding Musculoskeletal: Able to lift and hold both arms in the air, squeeze both hands on command with equal strength Neurologic: moves all extremities, awake and + confused; no focal motor deficits Speech / Cognition: + abnormal speech able to keep eyelids closed against resistance, did not follow instructions to raise eyebrows, CN 12 intact Results & Data Results & Data ([facility]) Vital Signs (Past 12 Hours) Vital Signs Temp Pulse Resp BP Pulse Ox 09/14/20 20:16 92 H 170/89 H 95 09/14/20 19:45 106 H 170/91 H 92 09/14/20 19:31 91 H 148/128 H 95 09/14/20 19:30 96 H 94 09/14/20 19:15 85 189/109 H 95 09/14/20 19:00 81 189/109 H 94 09/14/20 18:50 95 H 25 H 203/126 H 95 09/14/20 18:30 87 24 247/122 H 95 09/14/20 18:21 23 212/119 H 96 09/14/20 18:15 84 22 232/142 H 97 09/14/20 18:11 20 212/134 H 97 09/14/20 18:06 21 204/103 H 93 09/14/20 18:01 89 22 224/120 H 97 09/14/20 17:57 86 20 228/136 H 97 09/14/20 17:36 88 20 226/118 H 98 09/14/20 17:12 36.5 C 96 H 20 95 Laboratory Results WBC 7.09 K/uL (4.8-10.8) 09/14/20 17:41 RBC 4.93 M/uL (4.7-6.1) 09/14/20 17:41 Hgb 15.1 g/dL (14.0-18.0) 09/14/20 17:41 POC Hgb 14.3 g/dl (14.0-18.0) 09/14/20 17:48 Hct 43.2 % (42-52) 09/14/20 17:41 POC Hct 42 % (42-52) 09/14/20 17:48 MCV 87.6 fL (80-100) 09/14/20 17:41 MCH 30.6 pg (25-34) 09/14/20 17:41 MCHC 35.0 g/dL (32-36) 09/14/20 17:41 RDW Std Deviation 46.2 fL (36.4-46.3) 09/14/20 17:41 RDW Coeff of Eben 14.4 % (11.5-14.5) 09/14/20 17:41 Plt Count 96 K/uL (130-400) L 09/14/20 17:41 MPV 11.9 fL (7.4-10.4) H 09/14/20 17:41 Platelet Estimate Decreased (Normal) L 09/14/20 17:41 PT 12.4 Seconds (9.0-12.0) H 09/14/20 17:41 INR 1.2 (0.9-1.1) H 09/14/20 17:41 APTT 29.1 Seconds (21.0-31.0) 09/14/20 17:41 PTT Ratio 1.1 09/14/20 17:41 POC Sodium 136 mmol/L (135-144) 09/14/20 17:48 Sodium 136 mmol/L (136-145) 09/14/20 17:41 POC Potassium 4.2 mmol/L (3.3-5.0) 09/14/20 17:48 Potassium 4.4 mmol/L (3.5-5.1) 09/14/20 17:41 POC Chloride 101 mmol/L (101-112) 09/14/20 17:48 Chloride 104 mmol/L (98-107) 09/14/20 17:41 Carbon Dioxide 26 mmol/L (21-32) 09/14/20 17:41 POC Total CO2 25 mmol/L (24-31) 09/14/20 17:48 Anion Gap 8.0 (3-11) 09/14/20 17:41 POC Anion Gap 14.0 mmol/L (16-25) L 09/14/20 17:48 POC BUN 18 mg/dl (7-18) 09/14/20 17:48 BUN 15 mg/dl (7-18) 09/14/20 17:41 Creatinine 1.21 mg/dl (0.6-1.4) 09/14/20 17:41 POC Creatinine 1.0 mg/dl (0.6-1.3) 09/14/20 17:48 Est Cr Clr Drug Dosing 48.4 ml/min 09/14/20 17:41 Est GFR ( Amer) 63.3 09/14/20 17:41 Est GFR (Non-Af Amer) 54.6 09/14/20 17:41 BUN/Creatinine Ratio 12.3 (10-20) 09/14/20 17:41 Glucose 165 mg/dl (70-99) H 09/14/20 17:41 POC Glucose 180 mg/dl (70-99) H 09/14/20 17:40 POC Glucose (other) 156 mg/dl (70-99) H 09/14/20 17:48 Calcium 8.8 mg/dl (8.5-10.1) 09/14/20 17:41 POC Ioniz Calcium Estevan 1.11 mmol/l (1.12-1.32) L 09/14/20 17:48 Magnesium 1.9 mg/dl (1.8-2.4) 09/14/20 17:41 Total Bilirubin 1.1 mg/dl (0.2-1) H 09/14/20 17:41 AST 27 U/L (15-37) 09/14/20 17:41 ALT 46 U/L (12-78) 09/14/20 17:41 Alkaline Phosphatase 92 U/L (45-117) 09/14/20 17:41 Total Protein 6.5 gm/dl (6.4-8.2) 09/14/20 17:41 Albumin 3.2 gm/dl (3.4-5.0) L 09/14/20 17:41 Globulin 3.3 gm/dl (2.5-4.0) 09/14/20 17:41 Albumin/Globulin Ratio 1.0 (0.9-2) 09/14/20 17:41 Specimen Hemolysis 09/14/20 17:41 COVID-19 Eval Order Covid19 IDNow [facility] 09/14/20 20:45 Head CTA: 1. No significant change since CTA of January 10, 2019. Multifocal severe stenoses within the intracranial vessels due to atherosclerosis, as described above. 2. No new sites of vessel occlusion. No intraluminal thrombus or intracranial aneurysm. Head CT wo Con: IMPRESSION: No acute intracranial findings. No change in appearance of the brain. Neck CTA: 1. No stenosis within the bilateral common carotid or cervical internal carotid arteries. 2. Dominant right vertebral artery. Moderate stenosis of the proximal right vertebral artery. Diminutive left vertebral artery which is unchanged. 3. No dissection within the major vessels of the neck. 4. Medialization of the right vocal cord which is unchanged since prior exam. This suggests right vocal cord paralysis. Supervising Physician Co-Signing Physician Notes Attending addendum: I have physically seen this patient, have supervised the medical residents activities, and agree with the H&P unless as otherwise noted. Assessment and Plan: Altered mental status/TIA versus CVA versus encephalopathy- CT head without contrast negative for acute event, does show stable encephalomalacia CTA head and neck negative, but do show extensive cerebrovascular disease with multiple moderate to severe stenoses that are stable MRI brain without contrast Discontinue nicardipine drip. Permissive hypertension with systolic blood pressure up to 180 for the first 12 hours, unless MRI suggest otherwise Stroke without TPA order set Consult PT/OT/speech/neurology Atrial fibrillation/hypertension- Hold apixaban due to current mental state Heparin drip, standard concentration without bolus per protocol Remaining orders and notations as noted Resident Activity Tracking Resident Involvement: Resident Care Provided Care Provided: Adult Hospital Medicine (1) Hypothyroid Hypothyroidism type: acquired Qualified Code(s): E03.9 - Hypothyroidism, unspecified (2) Hypertension Hypertension type: essential hypertension Qualified Code(s): I10 - Essential (primary) hypertension
[2020-09-14] MEDS ORDERED: HALOPERIDOL LACTATE 5 MG/ML 1 ML VIAL IV STA (21:01)
[2020-09-14] MEDS ORDERED: HALOPERIDOL LACTATE 5 MG/ML 1 ML VIAL ONE (21:03)
[2020-09-14] MEDS ORDERED: LORazepam 0.5 MG/1 ML VIAL IV STA ×2 (21:23→22:04)
[2020-09-14] MEDS ORDERED: LORazepam 2 MG/4 ML VIAL ONE (21:26)
[2020-09-14] MEDS ORDERED: LORazepam 1 MG/2 ML VIAL IV STA (22:51)
[2020-09-14] MEDS ORDERED: MAGNESIUM HYDROXIDE SUSP 30 ML UDC PO PRN (23:52)
[2020-09-14] MEDS ORDERED: NITROGLYCERIN SL 0.4 MG/TAB TAB SL PRN (23:52)
[2020-09-15] MEDS ORDERED: CARBOHYDRATES FOR HYPOGLYCEMIA PO PRN (01:09)
[2020-09-15] MEDS ORDERED: GLUCOSE 10 TABS/TUBE PO PRN (01:09)
[2020-09-15] MEDS ORDERED: PHARMACIST DISCHARGE MED REC CONSULT PRN (01:09)
[2020-09-15] MEDS ORDERED: HYDROCORTISONE ACETATE 25 MG SUPP PR PRN (01:09)
[2020-09-15] MEDS ORDERED: GLUCOSE 40% GEL 15 GM TUBE PO PRN (01:09)
[2020-09-15] MEDS ORDERED: GLUCAGON FOR INJ 1 MG VIAL SQ PRN (01:09)
[2020-09-15] MEDS ORDERED: METOPROLOL TARTRATE 1 MG/ML VIAL IV PRN (01:09)
[2020-09-15] MEDS ORDERED: DEXTROSE 50% 50 ML SYRINGE IV PRN (01:09)
[2020-09-15] MEDS ORDERED: HEPARIN SODIUM/DEXTROSE 25,000 UNITS/500 ML BAG IV SCH (01:45)
--- NOTE | 2020-09-15 07:01 | Magnetic Resonance Report ---
MRI OF THE BRAIN WITHOUT CONTRAST CLINICAL HISTORY: Stroke/TIA CARPAL SPEECH AND RIGHT-SIDED WEAKNESS. INABILITY TO WALK. RIGHT-SIDED F ACIAL DROOP COMPARISON STUDY: CT scan dated 09/14/2020 FINDINGS: Sagittal T1, axial diffusion, proton density and T2 weighted axial, coronal FLAIR, and axial T1-weigh sherron images were acquired. No intra or extra-axial mass lesions are visualized Axial diffusion-weighted images reveal no evidence of acute or subacute infarction. There is no evidence of ventricular dilatation. Proton density T2-weighted and FLAIR images reveal moderate foci of increased T2 signal within the wh ite matter, likely on a small vessel basis. There is right temporal encephalomalacia. There is an old left thalamic lacunar infarct. There are no abnormal flow voids. IMPRESSION: 1. No acute intracranial findings 2. No evidence of acute or subacute infarction 3. No evidence of intracranial mass on this noncontrast study 4. Right temporal encephalomalacia. Moderate white matter disease likely small vessel ischemic basis ACT 112: Negative or not required by law. Electronically signed by: Bruce Olvera M.D. 09/15/2020 7:00 AM
[2020-09-15 07:03] LABS: Hemoglobin 15.8 g/dL (14.0-18.0); Mean Corpuscular Hemoglobin 30.3 pg (25-34); Mean Corpuscular Hgb Conc 35.1 g/dL (32-36); Mean Corpuscular Volume 86.2 fL (80-100); RDW Coefficient of Variation 14.4 % (11.5-14.5); Red Blood Count 5.22 M/uL (4.7-6.1); White Blood Count 7.72 K/uL (4.8-10.8)
[2020-09-15 07:09] LABS: Mean Platelet Volume 11.5 fL (7.4-10.4); Platelet Count 94 K/uL (130-400)
[2020-09-15 07:18] LABS: Estimated Average Glucose 160 mg/dl; Hemoglobin A1C 7.2 % (4.5-5.6)
[2020-09-15 07:23] LABS: Basophils # (auto) 0.02 K/uL (0-0.2); Basophils % (auto) 0.3 %; Eosinophils # (auto) 0.06 K/uL (0-0.5); Eosinophils % (auto) 0.8 %; Immature Granulocytes # (auto) 0.01 K/uL (0.00-0.02); Immature Granulocytes % (auto) 0.1 %; Lymphocytes % (auto) 28.5 %; Monocytes # (auto) 0.95 K/uL (0.11-0.59); Monocytes % (auto) 12.3 %; Neutrophils # (auto) 4.48 K/uL (1.4-6.5)
[2020-09-15 07:25] LABS: INR 1.2 (0.9-1.1); Partial Thromboplastin Ratio 1.8; Prothrombin Time 12.1 Seconds (9.0-12.0)
[2020-09-15 07:37] LABS: Albumin Level 3.4 gm/dl (3.4-5.0); BUN Creatinine Ratio 14.9 (10-20); Calcium 8.8 mg/dl (8.5-10.1); Creatinine Clr Calc Pharmacy 57.4 ml/min; Est GFR (African American) 80.7; Est GFR (Non-African American) 69.6; Potassium 4.1 mmol/L (3.5-5.1)
[2020-09-15 07:40] LABS: Bilirubin,Total 1.5 mg/dl (0.2-1); Globulin 3.3 gm/dl (2.5-4.0); Total Protein 6.7 gm/dl (6.4-8.2)
[2020-09-15 07:43] LABS: Partial Thromboplastin Time 48.4 Seconds (21.0-31.0)
--- NOTE | 2020-09-15 08:24 | Neurology Consultation ---
Date of Consultation September 15, 2020 Assessment & Plan (1) Stroke-like episode: (2) Hypertensive encephalopathy: (3) Chronic ischemic vertebrobasilar artery brainstem stroke: Strokelike episode characterized by trouble speaking/aphasia, confusion, and inability to recognize his son/prosopagnosia, occurring in the context of hypertensive emergency/encephalopathy. Currently seems improved. Patient has significant dysarthria at baseline due to vocal cord paralysis. He has a mild right hemiparesis as well which I suspect is also chronic. He has extensive chronic cerebrovascular disease throughout the cerebral hemispheres and within the brainstem. He has a chronic left thalamic lacunar infarct, chronic encephalomalacia involving the right temporal lobe and a chronic right medullary infarct. Stroke risk factors for this patient include atrial fibrillation, type 2 diabetes mellitus, hypertension, and dyslipidemia. Continue management of hypertension. Patient will need to perform adequately with a swallowing evaluation prior to resuming his oral medication regimen below. Would continue with apixaban and aspirin 81 mg/day. Continue atorvastatin. 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 Continue duloxetine and Lyrica for diabetic peripheral neuropathy. PT OT evaluations. History of Present Illness Reason for Consultation: TIA Requesting Physician: Mary Clifford MD Attending Physician: Jesse Suaerz MD History of Present Illness The patient is an 84-year-old male who presented to the emergency department yesterday for further evaluation and management of altered mental status characterized by inability to speak that was noted yesterday afternoon. He did not recognize his son. He was confused and could not follow commands. His blood pressure was 204/103 at the time of presentation. His mental status seems a bit improved this morning. However, his speech remains dysarthric and he has mild associated right-sided weakness. I had previously evaluated this patient in December 2018 during a hospitalization at that time, for further assessment of dysarthria and weakness potentially consistent with a brainstem stroke. He was last seen in neurology clinic by our [employer] just over 1 ye ar ago for ongoing evaluation and management of weakness, gait disturbance, mild memory disturbance, and slurred speech. 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 Allergies Allergy/AdvReac Type Severity Reaction Status Date / Time hydrocodone AdvReac Mild Dizziness, Verified 09/14/20 19:19 [From Panlor Nausea (hydrocodone-acetamin)] oxycodone AdvReac Mild NAUSEA/VOMI Verified 09/14/20 19:19 TING tramadol AdvReac Mild confusion Verified 09/14/20 19:19 Home Medications Medication Instructions Recorded Confirmed Type aspirin [Aspir-81] 81 mg PO QAM 01/09/19 09/14/20 History omeprazole 40 mg PO QAM 01/09/19 09/14/20 History acetaminophen [Tylenol Extra 500 mg PO Q6H PRN 01/18/19 09/14/20 History Strength] carbidopa 25 mg-levodopa 100 mg 0.5 tab PO TID #45 tab 08/25/19 09/14/20 Rx tablet duloxetine 60 mg capsule,delayed 60 mg PO DAILY cap 10/21/19 09/14/20 History release lisinopril 5 mg tablet 5 mg PO DAILY tab 10/21/19 09/14/20 History pregabalin 100 mg capsule 100 mg PO TID #90 cap 02/16/20 09/14/20 Rx methylcellulose (with sugar) 2 g PO DAILY #454 g 03/12/20 09/14/20 Rx [Fiber Therapy (m-cell/sugar)] insulin NPH-regular 70-30 U-100 20 unit SQ BID #15 ml 05/09/20 09/14/20 Rx insulin 100 unit/mL subcutaneous pen diclofenac sodium 1 % topical gel See Rx Instructions TOP QID #100 gm 08/14/20 09/14/20 Rx apixaban 2.5 mg tablet 2.5 mg PO BID #180 tab 08/21/20 09/14/20 Rx atorvastatin 80 mg tablet 80 mg PO HS #90 tab 08/21/20 09/14/20 Rx finasteride 5 mg tablet 5 mg PO QAM #90 tab 08/21/20 09/14/20 Rx levothyroxine 50 mcg tablet 50 mcg PO QAM #90 tab 08/21/20 09/14/20 Rx tamsulosin 0.4 mg capsule 0.4 mg PO QAM #90 cap 08/21/20 09/14/20 Rx hydrocortisone acetate [Anucort-HC] 25 mg HI DAILY PRN 09/14/20 09/14/20 History magnesium oxide 400 mg PO DAILY 09/14/20 09/14/20 History polyethylene glycol 3350 [Miralax] 17 g PO DAILY PRN 09/14/20 09/14/20 History Patient History Medical History Abnormal tympanic membrane Left and Right Atrial fibrillation with rapid ventricular response Atrial flutter with rapid ventricular response Bilateral otitis externa BPH (benign prostatic hyperplasia) 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 Yates--per son pt does not have any deficits Depression Difficulty swallowing DM type 2 (diabetes mellitus, type 2) Encounter for pre-operative examination Foreign body in lip GERD (gastroesophageal reflux disease) Hearing deficit History of cellulitis HTN (hypertension) Hyperlipidemia Hypothyroid Jaw disease Kidney stones Memory impairment Myocardial Infarction 2003--follows with Dr. [place] Neuropathy On anticoagulant therapy eliquis daily Osteoarthritis Paroxysmal atrial flutter Productive cough Stroke x3 total---follows with Dr. Yates Transient hypotension Upper respiratory infection UTI (urinary tract infection) Surgical History History of bilateral cataract extraction History of esophagogastroduodenoscopy (EGD) History of kidney surgery History of lithotripsy x2 History of lumbar laminectomy History of tooth extraction Hx of CABG 2003 @ [facility] Family History Father Diabetes Coronary heart disease Mother Diabetes Coronary heart disease Sister Breast cancer Brother Coronary heart disease Son Family history of diabetes mellitus Family/Other Family history of diabetes mellitus grandson Other No family history of adverse response to anesthesia Social History Smoking Status: Unknown if ever smoked Second Hand Exposure: No; Do You Dip or Chew Tobacco: No; Tobacco Cessation Education Requested by Patient: No Hx Alcohol Use: No Hx Substance Use: No Preferred Language: Iraqi Communication Ability: Effective Communication Ability Comment: unable to assess Hearing Ability: Use of Hearing Aid Installment Dealer Required: No Beliefs That Will Affect Care: None marital status: Unknown Current Living Situation: Family Current Living Situation Comment: son sherie milan and daughter in law current occupational status: retired Feels Safe at Home: Yes Seatbelt Use: always Sunscreen Use: No Assistive Devices: None Review of Systems Review of Systems: Unobtainable due to cognitive status Exam (Neuro) Constitutional: well developed and well nourished; no acute distress Eyes: normal visual lange by confrontation, PERRL, normal accommodation and EOM intact bilaterally; no fundoscopic abnormality, no nystagmus and no papilledema Cardiovascular: Vessels: normal carotid upstroke; no carotid bruit Neurologic: Oriented to:: Person and Place; negative Time Memory: Remote Intact; negative Short Term Intact Attention: Span Intact; negative Concentration Intact Language: negative Naming Objects and Repeating Phrases Speech Fluency: Dysarthria Speech Aphasia: Aphasia (Mild to moderate difficulty with object naming noted. Difficulty repeating phrases as well.) Fund of Knowledge: Vocabulary; negative Current Events and Past History Cranial Nerves: Normal II (Visual lange full to confrontation, visual acuity normal), III, IV, (Pupils equal round reactive to light and accommodation, eye movements normal), V (Facial sensation intact), VIII (Hearing intact), IX, X (Palate elevates to midline), XI (Shoulder shrug intact) and XII (Tongue protrudes to midline); Abnorm VII (There is flattening of the right nasolabial fold.) Motor Strength: Hemiparesis (There is a mild right hemiparesis.) Laterality: Right; negative Normal Lower Extremities, Normal Upper Extremities and Pronator Drift Motor Tone: Normal Lower Extremities and Normal Upper Extremities Muscle Bulk/Involuntary Movements: No Involuntary Movements; negative Muscle Atrophy Sensation: Light Touch Intact, Pain/Temperature Intact, Vibration Intact and Proprioception Intact Coordination: Finger-Nose Abnormal Laterality: Right and Heel-Regalado Abnormal Laterality: Right; negative Dysdiadochokinesia Deep Tendon Reflexes: Rt Triceps: 2+, Lt Triceps: 2+, Rt Biceps: 2+, Lt Biceps: 2+, Rt Brachioradialis: 2+, Lt Brachioradialis: 2+, Rt Patellar: 3+, Lt Patellar: 2+, Rt Ankle: 2+ and Lt Ankle: 2+ Special Tests: Babinski Present (Plantar responses withdrawal bilaterally.) Details: Gait could not be tested in the context of patient's current neurological/medical status. Results & Data ([facility]) Vital Signs (Past 12 Hours) Vital Signs Temp Pulse Pulse Resp BP BP Pulse Ox 09/15/20 07:46 36.8 C 65 20 179/79 H 93 09/15/20 04:00 37 C 82 20 158/88 H 98 09/15/20 01:09 37.8 C H 87 20 150/85 H 97 09/15/20 00:30 93 H 20 157/106 H 96 09/15/20 00:17 92 H 21 166/94 H 98 09/14/20 23:46 88 L 09/14/20 23:00 89 14 174/120 H 94 09/14/20 22:32 100 H 22 179/100 H 93 09/14/20 22:16 95 H 22 169/101 H 96 09/14/20 22:13 105 H 18 195/97 H 97 09/14/20 22:01 90 190/97 H 95 09/14/20 21:47 95 H 192/107 H 96 09/14/20 21:31 95 H 176/90 H 99 09/14/20 21:16 112 H 132/83 09/14/20 21:15 100 H 09/14/20 20:45 93 H 157/104 H 93 09/14/20 20:16 92 H 170/89 H 95 Laboratory Results WBC 7.72, hemoglobin 15.8, hematocrit 45.0, platelet count 94, sodium 140, potassium 4.1, BUN 15, creatinine 0.99, glucose 148, hemoglobin A1c 7.2, triglycerides 37, cholesterol 86, LDL 39, VLDL 7, HDL [address] of the head reveals encephalomalacia within the right temporal lobe and chronic small vessel disease. CT of the head reveals severe multifocal stenoses within the intracranial vessels, similar to CTA done in 2019. There is multifocal occlusion of the left vertebral artery, also unchanged. CTA of the neck without significant stenosis within the bilateral common carotid or cervical internal carotid arteries. The right vertebral artery is dominant. There is moderate stenosis of the proximal right vertebral artery. The left vertebral artery is diminutive. There is evidence of right vocal cord paralysis. MRI of the brain negative for acute or subacute stroke. No hemorrhage. There is right temporal encephalomalacia and moderate chronic small vessel ischemic disease. There is an old left thalamic lacunar infarct. There is a chronic right medullary infarct per my review of the images as well. This finding was identified previously. An electrocardiogram reveals atrial fibrillation, 84 bpm. Coding Level of Care Code 32130 Initial Inpt Care Lvl 3 Diagnoses Stroke-like episode R29.90 Hypertensive encephalopathy I67.4 Chronic ischemic vertebrobasilar artery brainstem stroke I69.30
--- NOTE | 2020-09-15 08:36 | Hospitalist Progress Note ---
Date of Service September 15, 2020 Assessment & Plan (1) Altered mental status: 84 yo M vasculopath with hx CVA, CAD, HTN, HLD, DM2, Afib on eliquis, gout admitted for Hypertensive Emergency concerning for stroke, after presenting with confusion and strokelike symptoms. #Altered Mental Status/Acute Encephalopathy 2/2 hypertensive emergency Prior to admission Patient was noted to be normal was 12:00 on 09/14 was given stroke work-up which was negative. Likely symptoms are related to hypertension, blood pressure was lowered slowly over the first 24 hours goal was >180 systolic. Blood pressure was lowered to less than 165/93 over the next 24 hours.Neurology was consulted recommending management of the hypertension. After correcting the patient's hypertension his symptoms have largely resolved. - secondary to TIA vs hypertensive emergency - hx of encephalomalacia, corroborated on imaging. - Neuro consult -Recommending treatment of hypertension and optimizing risk factors - persistent agitation requiring ativan #Acute hypertensive crisis in the setting of chronic hypertension Resume lisinopril #Atrial fibrillation - currently rate controlled -Eliquis resumed #Thrombocytopenia - chronic, 96 on admission - no signs of bleeding currently #Chronic ischemic vertebrobasilar artery brainstem stroke hx of, imaging workup for new stroke negative #Diabetes type 2 A1c 6.7 in 02/2020, repeat 7.2 on insulin 70/30 20u BID at home converted to 10u BID lantus BID with glargine SSI #Hearing loss chronic, hears better out of left ear #Vocal cord paralysis Unclear reason for being on cinemet -- possibly paralysis + hx of vertebasilar stroke? currently ordered to help prevent motor spasms, can crush pill #Dyslipidemia repeat lipid panel in AM as above #Gout #Coronary artery disease Restarted statin and Plavix #Diabetic neuropathy Resume duloxetine and Lyrica #Hypothyroid Levothyroxine daily #Proctitis resumed finasteride FENa: Heart healthy diabetic type II minced moist Code Status: Conditional code, no artificial ventilation DVT PPX: Heparin while n.p.o. plan to transition back to Eliquis PT/OT: Ordered Dispo: Telemetry Kwaku Link MD PGY 2, FCM This chart was completed utilizing [employer] voice recognition software. Grammatical errors, random word insertions, pronoun errors, and in complete sentences are an occasional consequence of the system. Any questions or concerns about the content, text, or information contained within the body of this dictation should be addressed directly to the physician for clarification. (2) Hypertension: (3) Atrial fibrillation: (4) Thrombocytopenia: (5) Chronic ischemic vertebrobasilar artery brainstem stroke: (6) Diabetes mellitus: (7) Hearing loss: (8) Vocal cord paralysis: (9) Dyslipidemia: (10) Gout: (11) Coronary artery disease: (12) Diabetic neuropathy: (13) Hypothyroid: (14) Proctitis: Admission and Anticipated Discharge Date Admission Date: September 14, 2020 Supervising Physician Co-Signing Physician Notes I personally examined the patient and verified all yung points of history and exam, discussed case, and agree with decision making with Dr Link. Feeling better. Notes that he is feeling more or less at his baseline. No new complaints otherwise. Vitals noted, in general he is awake and alert pleasant no distress. HEENT normocephalic atraumatic mucous membranes moist. Voice is thick and somewhat slurred, but he notes this is his baseline. No focal neuro deficits noted otherwise. Hypertensive emergencygiven his blood pressure and is more delirium/global symptoms I suspect this was more hypertension driven than cerebrovascular ischemia. Blood pressure has improved, allow for permissive hypertension and b ring down slowly. Likely can resume lisinopril tomorrow morning. Continue to follow. PT/OT. Otherwise as above Subjective Patient sleeping comfortably in bed this morning in no acute distress. After initial stabilization in the emergency department there were no acute events overnight. Patient reports he is back to his baseline status. He does have some vocal cord paralysis making it difficult to talk. He states he no longer has blurry vision nor headache. Failed dysphagia screen the prior night, speech and swallow to evaluate patient today, voiding, stooling, sleeping well. All questions answered no acute concerns Physical Exam Physical Exam: General: Sitting in bed in no acute distress HEENT: Normocephalic atraumatic Neck: Normal to visual inspection Cardiac: Regular rate and rhythm I did not appreciate any grade II/ murmur present rubs or gallops, normal S1-2, negative pedal edema, negative calf tenderness Respiratory: Clear to auscultation bilaterally with symmetrical chest expansion I did not appreciate significant wheezes, rales, rhonchi GI: Soft, nontender, nondistended, bowel sounds present Neuro: Limited evaluation due to Somnolence. We will reevaluate tomorrow Results & Data Results & Data ([facility]) Vital Signs (Past 12 Hours) Vital Signs Temp Pulse Pulse Resp BP BP Pulse Ox 09/15/20 07:46 36.8 C 65 20 179/79 H 93 09/15/20 04:00 37 C 82 20 158/88 H 98 09/15/20 01:09 37.8 C H 87 20 150/85 H 97 09/15/20 00:30 93 H 20 157/106 H 96 09/15/20 00:17 92 H 21 166/94 H 98 09/14/20 23:46 88 L 09/14/20 23:00 89 14 174/120 H 94 09/14/20 22:32 100 H 22 179/100 H 93 09/14/20 22:16 95 H 22 169/101 H 96 09/14/20 22:13 105 H 18 195/97 H 97 09/14/20 22:01 90 190/97 H 95 09/14/20 21:47 95 H 192/107 H 96 09/14/20 21:31 95 H 176/90 H 99 09/14/20 21:16 112 H 132/83 09/14/20 21:15 100 H 09/14/20 20:45 93 H 157/104 H 93 Resident Activity Tracking Resident Involvement: Resident Care Provided Care Provided: Adult Hospital Medicine (1) Hypothyroid Hypothyroidism type: acquired Qualified Code(s): E03.9 - Hypothyroidism, unspecified (2) Hypertension Hypertension type: essential hypertension Qualified Code(s): I10 - Essential (primary) hypertension
[2020-09-15] MEDS: DICLOFENAC SOD 1% GEL 100 GM TUBE EXT SCH ×4 (09:17→21:04)
[2020-09-15] MEDS: CARBIDOPA/LEVODOPA 25/100MG TAB PO SCH ×3 (09:17→21:03)
[2020-09-15] MEDS: INSULIN GLARGINE SOLOSTAR 100 UNITS/ML 3 ML PEN SC SCH ×2 (10:07→21:05)
[2020-09-15 11:27] LABS: Partial Thromboplastin Ratio 2.7
[2020-09-15 11:34] LABS: Partial Thromboplastin Time 71.7 Seconds (21.0-31.0)
[2020-09-15] MEDS: INSULIN ASPART 100 UNITS/ML 3 ML PEN SC SCH ×5 (12:26→21:05)
--- NOTE | 2020-09-15 16:15 | Billing Data ---
Date of Service September 15, 2020 Coding Level of Care Code 27688 Subseq Obs Care Lvl 3
[2020-09-15] MEDS ORDERED: POLYETHYLENE (MIRALAX) 17 GM PACK PO PRN (16:30)
[2020-09-15] MEDS ORDERED: ACETAMINOPHEN 500 MG TAB PO PRN (16:41)
[2020-09-15] MEDS ORDERED: lisinopril 5 MG TAB PO SCH (16:45)
[2020-09-15] MEDS: DULoxetine HCL 60 MG CAP PO SCH (18:10)
[2020-09-15 18:11] LABS: Partial Thromboplastin Ratio 2.5
[2020-09-15] MEDS: ASPIRIN 81 MG ECTAB PO SCH (18:11)
[2020-09-15] MEDS: LEVOTHYROXINE SODIUM 50 MCG TABLET PO SCH (18:12)
[2020-09-15] MEDS: FINASTERIDE 5 MG TAB PO SCH (18:12)
[2020-09-15] MEDS: METHYLCELLULOSE POWDER 454 GM JAR PO SCH (18:13)
[2020-09-15 18:14] LABS: Partial Thromboplastin Time 64.9 Seconds (21.0-31.0)
[2020-09-15] MEDS: TAMSULOSIN HCL 0.4 MG CAP PO SCH (18:14)
[2020-09-15] MEDS: APIXABAN 2.5 MG TAB PO SCH (21:02)
[2020-09-15] MEDS: PREGABALIN 100 MG CAP PO SCH (21:03)
[2020-09-15] MEDS: ATORVASTATIN 40 MG TAB PO SCH (21:03)
--- NOTE | 2020-09-15 22:18 | Electrocardiogram Report ---
Test Reason : Blood Pressure : / mmHG Vent. Rate : 084 BPM Atrial Rate : 078 BPM P-R Int : 000 ms QRS Dur : 086 ms QT Int : 388 ms P-R-T Axes : 000 -16 052 degrees QTc Int : 458 ms Poor data quality, interpretation may be adversely affected Atrial fibrillation Nonspecific ST abnormality Possible Inferior infarct Abnormal ECG When compared with ECG of 18-JAN-2019 14:58, Vent. rate has increased BY 28 BPM Confirmed by Merlin Munguia ([id number]) on 09/15/2020 10:17:58 PM Referred By: REFERRED SELF Confirmed By:Merlin Munguia
--- NOTE | 2020-09-15 23:52 | Billing Data ---
Date of Service September 15, 2020 Coding Level of Care Code 07919 OBS Care - Level 3
[2020-09-16] MEDS: LEVOTHYROXINE SODIUM 50 MCG TABLET PO SCH (05:44)
[2020-09-16 06:36] LABS: Hematocrit (blood only) 44.2 % (42-52); Hemoglobin 15.5 g/dL (14.0-18.0); Mean Corpuscular Hemoglobin 30.3 pg (25-34); Mean Corpuscular Hgb Conc 35.1 g/dL (32-36); Mean Corpuscular Volume 86.3 fL (80-100); RDW Coefficient of Variation 14.3 % (11.5-14.5); RDW Standard Deviation 44.8 fL (36.4-46.3); Red Blood Count 5.12 M/uL (4.7-6.1)
[2020-09-16 07:06] LABS: Basophils # (auto) 0.01 K/uL (0-0.2); Basophils % (auto) 0.1 %; Eosinophils # (auto) 0.19 K/uL (0-0.5); Eosinophils % (auto) 2.5 %; Immature Granulocytes # (auto) 0.02 K/uL (0.00-0.02); Immature Granulocytes % (auto) 0.3 %; Lymphocytes # (auto) 1.86 K/uL (1.2-3.4); Lymphocytes % (auto) 24.5 %; Mean Platelet Volume 11.2 fL (7.4-10.4); Monocytes # (auto) 0.86 K/uL (0.11-0.59); Monocytes % (auto) 11.3 %; Neutrophils # (auto) 4.66 K/uL (1.4-6.5); Neutrophils % (auto) 61.3 %; Platelet Count 85 K/uL (130-400)
[2020-09-16 07:10] LABS: BUN Creatinine Ratio 17.5 (10-20); Calcium 9.1 mg/dl (8.5-10.1); Creatinine Clr Calc Pharmacy 52.4 ml/min; Est GFR (African American) 69.5; Potassium 3.8 mmol/L (3.5-5.1)
[2020-09-16] MEDS: FINASTERIDE 5 MG TAB PO SCH (08:06)
[2020-09-16] MEDS: TAMSULOSIN HCL 0.4 MG CAP PO SCH (08:06)
[2020-09-16] MEDS: MAGNESIUM OXIDE 400 MG TAB PO SCH (08:06)
[2020-09-16] MEDS: PANTOprazole 40 MG TAB PO SCH (08:06)
[2020-09-16] MEDS: INSULIN ASPART 100 UNITS/ML 3 ML PEN SC SCH ×4 (08:07→21:32)
[2020-09-16] MEDS: DULoxetine HCL 60 MG CAP PO SCH (08:07)
[2020-09-16] MEDS: CARBIDOPA/LEVODOPA 25/100MG TAB PO SCH ×3 (08:07→20:24)
[2020-09-16] MEDS: APIXABAN 2.5 MG TAB PO SCH ×2 (08:07→20:23)
[2020-09-16] MEDS: ASPIRIN 81 MG ECTAB PO SCH (08:07)
[2020-09-16] MEDS: METHYLCELLULOSE POWDER 454 GM JAR PO SCH (08:09)
[2020-09-16] MEDS: DICLOFENAC SOD 1% GEL 100 GM TUBE EXT SCH ×4 (08:09→20:24)
[2020-09-16] MEDS: INSULIN GLARGINE SOLOSTAR 100 UNITS/ML 3 ML PEN SC SCH ×2 (08:09→21:31)
[2020-09-16] MEDS: PREGABALIN 100 MG CAP PO SCH ×3 (08:14→20:23)
[2020-09-16] MEDS: lisinopril 10 MG TAB PO SCH (08:16)
[2020-09-16] MEDS: Heparin IV Standard *NO* Bolus IV SCH (08:17)
[2020-09-16] MEDS ORDERED: amLODIPine BESYLATE 5 MG TAB PO SCH (09:00)
[2020-09-16] MEDS ORDERED: SODIUM CHLORIDE 0.9% 1000ML 1,000 ML IV ONE (13:47)
--- NOTE | 2020-09-16 13:54 | Hospitalist Progress Note ---
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 #Altered Mental Status/Acute Encephalopathy / hypertensive emergency Prior to admission Patient was noted to be normal was 12:00 on 09/14 was given stroke work-up which was negative. Likely symptoms are related to hypertension, blood pressure was lowered slowly over the first 24 hours goal was >180 systolic. Blood pressure was lowered to less than 165/93 over the next 24 hours.Neurology was consulted recommending management of the hypertension. After correcting the patient's hypertension his symptoms have largely resolved. - secondary to TIA vs hypertensive emergency - hx of encephalomalacia, corroborated on imaging. - Neuro consult -Recommending treatment of hypertension and optimizing risk factors - persistent agitation requiring ativan #Normotensive altered mental status Overnight 09/15 patient had significantly elevated pressures, on 09/17 arrived to the room the systolic was 170, he was endorsing blurry vision and headaches. Never triggered better blood pressure control added amlodipine 5 mg nightly. See subjective for history I was paged the room at approximately 1130 secondary to increasing slurred speech and altered mental status. Performed at bedside neuro exam without focal defects noted global picture was most consistent with watershed/hypotension. Advised the patient with a 1 L Bolus of normal saline with significant improvement in his symptoms -Monitor closely for any development of symptoms -Cautious adjustment of blood pressure medications -Decrease amlodipine to 2.5 mg nightly -Use caution when adding or removing antihypertensive agents. #Acute hypertensive crisis in the setting of chronic hypertension -Resumed lisinopril -Added amlodipine 5 mg every morning patient was extremely responsible decreased #Atrial fibrillation -currently rate controlled -Eliquis resumed #Thrombocytopenia - chronic, 96 on admission - no signs of bleeding currently #Chronic ischemic vertebrobasilar artery brainstem stroke hx of, imaging workup for new stroke negative #Diabetes type 2 A1c 6.7 in 02/2020, repeat 7.2 on insulin 70/30 20u BID at home converted to 10u BID lantus BID with glargine SSI -BSG acceptable #Hearing loss chronic, hears better out of left ear #Vocal cord paralysis Unclear reason for being on cinemet possibly paralysis + hx of vertebasilar stroke versus 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 Grammatical errors, random word insertions, pronoun errors, and in complete sentences are an occasional consequence of the system. Any questions or concerns about the content, text, or information contained within the body of this dictation should be addressed directly to the physician for clarification. (2) Hypertension: (3) Atrial fibrillation: (4) Thrombocytopenia: (5) Chronic ischemic vertebrobasilar artery brainstem stroke: (6) Diabetes mellitus: (7) Hearing loss: (8) Vocal cord paralysis: (9) Dyslipidemia: (10) Gout: (11) Coronary artery disease: (12) Diabetic neuropathy: (13) Hypothyroid: (14) Proctitis: Admission and Anticipated Discharge Date Admission Date: September 16, 2020 Supervising Physician Co-Signing Physician Notes I personally examined the patient and verified all yung points of history and exam, discussed case, and agree with decision making with Dr Link. Patient seen several times today. We were called late morning as he was slurring his speech more and had a little bit of a new facial droop. During this time he was a little bit restless and agitated mostly because he was not sure exactly why this started so quickly, but he did also have a little bit of difficulty following commands. He noted his prior stroke left him with left sided weakness not right side. At this time his blood pressure was about 124/75. Revisiting may be half hour 45 minutes later after fluids had been partially bolused and, his facial droop had essentially resolved his speech was back to normal and he was feeling like himself again. No other new complaints. Vitals noted, initially showed right-sided facial droop, no other focal weakness, no sensory deficits. His arm strength seem to be 4+ to 5 out of 5 equal bilaterally although he did have a little bit of difficulty following commands, likewise leg strength seem to be equal 4+ to 5 out of 5 but again with a little bit of difficulty following commands. Nowhere including cranial nerves, arms, torso, and legs did he show any sensory deficits to confrontational light touch. And again later whenever I revisit him his facial droop appears to have resolved. Hypertensive emergencyfor his initial presentation, given his blood pressure being so elevated, and symptoms showing more delirium/global symptoms I suspect this was more hypertension driven than cerebrovascular ischemia. Right-sided facial droop todaywhile we were targeting a degree of permissive hypertension and slowly bring his blood pressure down, briefly today he got to a normotensive range. At this point time I strongly suspected a watershed effect, and while the bulk of the stroke that he knows was right-sided leaving him with left-sided deficits, his MRI does also show a small left-sided stroke, and the watershed effect could easily have been unmasking of that. At any rate his deficits were small enough and transient enough that thrombolytics would have been more risk of bleed than potential benefit, and his symptoms yet again to clarify appeared mostly related to watershed effect of his relative hypotension having gone from very elevated blood pressures to normotensive pressures. He responded beautifully to a fluid bolus and his new deficits resolved. Continue secondary risk reduction as far as stroke, and we scaled back on his antihypertensive regimen to allow permissive hypertension to continue. Of note when the time comes for tight control, he did respond quite well to medium dosing of amlodipine. DispositionPT/OT eval and treat, anticipate the need for rehab. Otherwise as above. Subjective When I initially rounded on the patient this morning he was sitting up in bed having just finished getting ready for the morning in no acute distress. Patient was extremely pleasant reporting that the majority of his symptoms had been ameliorated however he was still experiencing intermittent dizziness and blurry vision is correlated with his blood pressure of 170 systolic. I provided the patient with 5 mg of amlodipine in addition to his routine antihypertensives. At approximately 1130 I was paged the room as the patient was exhibiting new neurological symptoms. A thorough evaluation of the patient was done and it was deemed that the symptoms are likely secondary to relative hypotension. 1 L fluid bolus was administered with improvement in the patient's symptoms. Otherwise patient continues to do well, all questions were answered, acute concerns relate to discharge planning. Physical Exam Physical Exam: General: No acute distress HEENT: Normocephalic atraumatic Neck: Normal to visual inspection Cardiac: Irregularly irregular rhythm, normal rate, I did not appreciate significant murmurs rubs or gallops Respiratory: Clear to auscultation bilaterally with symmetrical chest expansion did not appreciate significant wheezes, rales, rhonchi GI: Distended abdomen, positive for bowel sounds, nontender Neuro: Alert and oriented to person, previous deficits from prior extremities however for the most part CN II through XII grossly intact, strength is baseline, sensory function is baseline Psych:[] Results & Data Results & Data ([facility]) Vital Signs (Past 12 Hours) Vital Signs Temp Pulse Resp BP BP Pulse Ox 09/16/20 13:42 161/101 H 09/16/20 12:15 131/76 09/16/20 11:40 124/75 09/16/20 10:56 36.7 C 67 18 125/79 97 09/16/20 07:01 36.4 C L 80 20 172/101 H 96 09/16/20 03:00 36.6 C 72 20 164/91 H 95 Laboratory Results 09/16/20 09/16/20 09/16/20 Range/Units 11:25 07:15 06:16 WBC (4.8-10.8) K/uL RBC (4.7-6.1) M/uL Hgb (14.0-18.0) g/dL Hct (42-52) % MCV (80-100) fL MCH (25-34) pg MCHC (32-36) g/dL RDW Std Deviation (36.4-46.3) fL RDW Coeff of Eben (11.5-14.5) % Plt Count (130-400) K/uL MPV (7.4-10.4) fL Immature Gran % (Auto) % Neut % (Auto) % Lymph % (Auto) % White % (Auto) % Eos % (Auto) % Baso % (Auto) % Neut # (Auto) (1.4-6.5) K/uL Lymph # (Auto) (1.2-3.4) K/uL White # (Auto) (0.11-0.59) K/uL Eos # (Auto) (0-0.5) K/uL Baso # (Auto) (0-0.2) K/uL Immature Gran # (Auto) (0.00-0.02) K/uL APTT (21.0-31.0) Seconds PTT Ratio Sodium 139 (136-145) mmol/L Potassium 3.8 (3.5-5.1) mmol/L Chloride 108 H (98-107) mmol/L Carbon Dioxide 26 (21-32) mmol/L Anion Gap 5.0 (3-11) BUN 20 H (7-18) mg/dl Creatinine 1.12 (0.6-1.4) mg/dl Est Cr Clr Drug Dosing 52.4 ml/min Est GFR ( Amer) 69.5 Est GFR (Non-Af Amer) 60.0 BUN/Creatinine Ratio 17.5 (10-20) Glucose 127 H (70-99) mg/dl POC Glucose 161 H 120 H (70-99) mg/dl Calcium 9.1 (8.5-10.1) mg/dl 09/16/20 09/15/20 09/15/20 Range/Units 06:16 20:28 17:36 WBC 7.60 (4.8-10.8) K/uL RBC 5.12 (4.7-6.1) M/uL Hgb 15.5 (14.0-18.0) g/dL Hct 44.2 (42-52) % MCV 86.3 (80-100) fL MCH 30.3 (25-34) pg MCHC 35.1 (32-36) g/dL RDW Std Deviation 44.8 (36.4-46.3) fL RDW Coeff of Eben 14.3 (11.5-14.5) % Plt Count 85 L (130-400) K/uL MPV 11.2 H (7.4-10.4) fL Immature Gran % (Auto) 0.3 % Neut % (Auto) 61.3 % Lymph % (Auto) 24.5 % White % (Auto) 11.3 % Eos % (Auto) 2.5 % Baso % (Auto) 0.1 % Neut # (Auto) 4.66 (1.4-6.5) K/uL Lymph # (Auto) 1.86 (1.2-3.4) K/uL White # (Auto) 0.86 H (0.11-0.59) K/uL Eos # (Auto) 0.19 (0-0.5) K/uL Baso # (Auto) 0.01 (0-0.2) K/uL Immature Gran # (Auto) 0.02 (0.00-0.02) K/uL APTT 64.9 H* (21.0-31.0) Seconds PTT Ratio 2.5 Sodium (136-145) mmol/L Potassium (3.5-5.1) mmol/L Chloride (98-107) mmol/L Carbon Dioxide (21-32) mmol/L Anion Gap (3-11) BUN (7-18) mg/dl Creatinine (0.6-1.4) mg/dl Est Cr Clr Drug Dosing ml/min Est GFR ( Amer) Est GFR (Non-Af Amer) BUN/Creatinine Ratio (10-20) Glucose (70-99) mg/dl POC Glucose 150 H (70-99) mg/dl Calcium (8.5-10.1) mg/dl 09/15/20 Range/Units 16:11 WBC (4.8-10.8) K/uL RBC (4.7-6.1) M/uL Hgb (14.0-18.0) g/dL Hct (42-52) % MCV (80-100) fL MCH (25-34) pg MCHC (32-36) g/dL RDW Std Deviation (36.4-46.3) fL RDW Coeff of Eben (11.5-14.5) % Plt Count (130-400) K/uL MPV (7.4-10.4) fL Immature Gran % (Auto) % Neut % (Auto) % Lymph % (Auto) % White % (Auto) % Eos % (Auto) % Baso % (Auto) % Neut # (Auto) (1.4-6.5) K/uL Lymph # (Auto) (1.2-3.4) K/uL White # (Auto) (0.11-0.59) K/uL Eos # (Auto) (0-0.5) K/uL Baso # (Auto) (0-0.2) K/uL Immature Gran # (Auto) (0.00-0.02) K/uL APTT (21.0-31.0) Seconds PTT Ratio Sodium (136-145) mmol/L Potassium (3.5-5.1) mmol/L Chloride (98-107) mmol/L Carbon Dioxide (21-32) mmol/L Anion Gap (3-11) BUN (7-18) mg/dl Creatinine (0.6-1.4) mg/dl Est Cr Clr Drug Dosing ml/min Est GFR ( Amer) Est GFR (Non-Af Amer) BUN/Creatinine Ratio (10-20) Glucose (70-99) mg/dl POC Glucose 184 H (70-99) mg/dl Calcium (8.5-10.1) mg/dl Medications Administered Current Inpatient Medications Acetaminophen (Acetaminophen 500 Mg Tab) 500 mg PO Q6H PRN PRN Reason: Pain Stop: 10/15/20 16:40 Amlodipine Besylate (Amlodipine Besylate 5 Mg Tab) 5 mg PO QAM [facility] Stop: 10/16/20 08:59 Last Admin: 09/16/20 09:38 Dose: 5 mg Documented by: Apixaban (Apixaban 2.5 Mg Tab) 2.5 mg PO BID [facility] Stop: 10/15/20 20:59 Last Admin: 09/16/20 08:07 Dose: 2.5 mg Documented by: Aspirin (Aspirin 81 Mg Ectab) 81 mg PO QAM [facility] Stop: 10/15/20 16:29 Last Admin: 09/16/20 08:07 Dose: 81 mg Documented by: Atorvastatin Calcium (Atorvastatin 40 Mg Tab) 80 mg PO HS [facility] Stop: 10/15/20 20:59 Last Admin: 09/15/20 21:03 Dose: 80 mg Documented by: Carbidopa/Levodopa (Carbidopa/Levodopa 25/100mg Tab) 0.5 tab PO TID [facility] Stop: 10/15/20 08:59 Last Admin: 09/16/20 13:03 Dose: 0.5 tab Documented by: Dextrose (Dextrose 50% 50 Ml Syringe) 25 - 50 ml IV UD PRN; Protocol PRN Reason: Hypoglycemia Protocol Stop: 10/15/20 01:08 Diclofenac Sodium (Diclofenac Sod 1% Gel 100 Gm Tube) 4 gm EXT QID [facility] Stop: 10/15/20 08:59 Last Admin: 09/16/20 13:03 Dose: 4 gm Documented by: Duloxetine HCl (Duloxetine Hcl 60 Mg Cap) 60 mg PO DAILY [facility] Stop: 10/15/20 16:29 Last Admin: 09/16/20 08:07 Dose: 60 mg Documented by: Finasteride (Finasteride 5 Mg Tab) 5 mg PO QAM [facility] Stop: 10/15/20 16:29 Last Admin: 09/16/20 08:06 Dose: 5 mg Documented by: Glucagon (Glucagon For Inj 1 Mg Vial) 1 mg SQ UD PRN; Protocol PRN Reason: Hypoglycemia Protocol Stop: 10/15/20 01:08 Glucose (Glucose 10 Tabs/Tube) 4 - 8 tabs PO UD PRN; Protocol PRN Reason: Hypoglycemia Protocol Stop: 10/15/20 01:08 Glucose (Glucose 40% Gel 15 Gm Tube) 15 - 30 gm PO UD PRN; Protocol PRN Reason: Hypoglycemia Protocol Stop: 10/15/20 01:08 Hydrocortisone (Hydrocortisone Acetate 25 Mg Supp) 25 mg [place] DAILY PRN PRN Reason: hemmoriods Stop: 10/15/20 01:08 Sodium Chloride (Nss 1000ml) 1,000 mls @ 999 mls/hr IV .Q1H1M ONE Stop: 09/16/20 14:47 Last Admin: 09/16/20 13:55 Dose: 999 mls/hr Documented by: Insulin Aspart (Insulin Aspart 100 Units/Ml 3 Ml Pen) 0 units SC ACHS [facility] Stop: 10/15/20 07:29 Last Admin: 09/16/20 13:01 Dose: Not Given Documented by: Insulin Glargine (Insulin Glargine Solostar 100 Units/Ml 3 Ml Pen) 10 units SC BID [facility] Stop: 10/15/20 08:59 Last Admin: 09/16/20 08:09 Dose: 10 units Documented by: Levothyroxine Sodium (Levothyroxine Sodium 50 Mcg Tablet) 50 mcg PO DAILYBB [facility] Stop: 10/15/20 16:29 Last Admin: 09/16/20 05:44 Dose: 50 mcg Documented by: Lisinopril (Lisinopril 10 Mg Tab) 10 mg PO QAM [facility] Stop: 10/16/20 08:59 Last Admin: 09/16/20 08:16 Dose: 10 mg Documented by: Magnesium Hydroxide (Magnesium Hydroxide Susp 30 Ml Udc) 30 ml PO Q12H PRN PRN Reason: Constipation Stop: 10/14/20 23:51 Magnesium Oxide (Magnesium Oxide 400 Mg Tab) 400 mg PO DAILY [facility] Stop: 10/16/20 08:59 Last Admin: 09/16/20 08:06 Dose: 400 mg Documented by: Methylcellulose (Methylcellulose Powder 454 Gm Jar) 2 gm PO DAILY [facility] Stop: 10/15/20 16:44 Last Admin: 09/16/20 08:09 Dose: 2 gm Documented by: Metoprolol Tartrate (Metoprolol Tartrate 1 Mg/Ml Vial) 5 mg IV Q10M PRN PRN Reason: BP> 190 Stop: 10/15/20 01:08 Miscellaneous (Carbohydrates For Hypoglycemia ) 15 - 30 gm PO UD PRN PRN Reason: Hypoglycemia Protocol Stop: 10/15/20 01:08 Miscellaneous Information (Pharmacist Discharge Med Rec Consult) 1 ea N/A UD PRN PRN Reason: Consult Stop: 10/15/20 01:08 Nitroglycerin (Nitroglycerin Sl 0.4 Mg/Tab Tab) 0.4 mg SL UD PRN PRN Reason: Chest Pain Stop: 10/14/20 23:51 Pantoprazole Sodium (Pantoprazole 40 Mg Tab) 40 mg PO QAM [facility]; Protocol Stop: 10/16/20 08:59 Last Admin: 09/16/20 08:06 Dose: 40 mg Documented by: Polyethylene Glycol (Polyethylene (Miralax) 17 Gm Pack) 17 gm PO DAILY PRN PRN Reason: Constipation Stop: 10/15/20 16:29 Pregabalin (Pregabalin 100 Mg Cap) 100 mg PO TID [facility] Stop: 10/15/20 20:59 Last Admin: 09/16/20 13:05 Dose: 100 mg Documented by: Tamsulosin HCl (Tamsulosin Hcl 0.4 Mg Cap) 0.4 mg PO QAM [facility] Stop: 10/15/20 16:44 Last Admin: 09/16/20 08:06 Dose: 0.4 mg Documented by: Resident Activity Tracking Resident Involvement: Resident Care Provided Care Provided: Adult [facility] Medicine (1) Hypothyroid Hypothyroidism type: acquired Qualified Code(s): E03.9 - Hypothyroidism, unspecified (2) Hypertension Hypertension type: essential hypertension Qualified Code(s): I10 - Essential (primary) hypertension
[2020-09-16] MEDS ORDERED: LACTATED RINGER'S 1,000 ML IV SCH (16:45)
--- NOTE | 2020-09-16 17:10 | Billing Data ---
Date of Service September 16, 2020 Coding Level of Care Code 93233 Subseq Hosp Care Lvl 3
[2020-09-16] MEDS: ATORVASTATIN 40 MG TAB PO SCH (20:23)
[2020-09-17] MEDS: LEVOTHYROXINE SODIUM 50 MCG TABLET PO SCH (05:36)
[2020-09-17 06:10] LABS: Hematocrit (blood only) 41.9 % (42-52); Hemoglobin 14.6 g/dL (14.0-18.0); Mean Corpuscular Hemoglobin 30.2 pg (25-34); Mean Corpuscular Hgb Conc 34.8 g/dL (32-36); Mean Corpuscular Volume 86.6 fL (80-100); RDW Coefficient of Variation 14.1 % (11.5-14.5); RDW Standard Deviation 44.2 fL (36.4-46.3); Red Blood Count 4.84 M/uL (4.7-6.1); White Blood Count 5.99 K/uL (4.8-10.8)
[2020-09-17 06:13] LABS: Mean Platelet Volume 11.5 fL (7.4-10.4); Platelet Count 90 K/uL (130-400)
[2020-09-17 06:14] LABS: Basophils # (auto) 0.01 K/uL (0-0.2); Basophils % (auto) 0.2 %; Eosinophils # (auto) 0.22 K/uL (0-0.5); Eosinophils % (auto) 3.7 %; Immature Granulocytes # (auto) 0.01 K/uL (0.00-0.02); Immature Granulocytes % (auto) 0.2 %; Lymphocytes # (auto) 1.79 K/uL (1.2-3.4); Lymphocytes % (auto) 29.9 %; Monocytes # (auto) 0.57 K/uL (0.11-0.59); Monocytes % (auto) 9.5 %; Neutrophils # (auto) 3.39 K/uL (1.4-6.5); Neutrophils % (auto) 56.5 %
[2020-09-17 06:51] LABS: BUN Creatinine Ratio 16.3 (10-20); Calcium 8.6 mg/dl (8.5-10.1); Creatinine Clr Calc Pharmacy 52.8 ml/min; Est GFR (African American) 70.3; Est GFR (Non-African American) 60.7; Potassium 3.9 mmol/L (3.5-5.1)
--- NOTE | 2020-09-17 07:30 | Hospitalist Progress Note ---
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 #Altered Mental Status/Acute Encephalopathy 08/29 hypertensive emergency (resolved) Prior to admission Patient was noted to be normal was 12:00 on 09/14 was given stroke work-up which was negative. Likely symptoms are related to hypertension, blood pressure was lowered slowly over the first 24 hours goal was >180 systolic. Blood pressure was lowered to less than 165/93 over the next 24 hours.Neurology was consulted recommending management of the hypertension. After correcting the patient's hypertension his symptoms have largely resolved. - secondary to TIA vs hypertensive emergency - hx of encephalomalacia, corroborated on imaging. - Neuro consult -Recommending treatment of hypertension and optimizing risk factors - persistent agitation requiring ativan #Normotensive altered mental status Overnight 09/15 patient had significantly elevated pressures, on 09/17 arrived to the room the systolic was 170, he was endorsing blurry vision and headaches. Never triggered better blood pressure control added amlodipine 5 mg nightly. See subjective for history I was paged the room at approximately 1130 secondary to increasing slurred speech and altered mental status. Performed at bedside neuro exam without focal defects noted global picture was most consistent with watershed/hypotension. Provided the patient with a 1 L Bolus of normal saline with significant improvement in his symptoms. No further symptoms throughout the rest of the day on 09/16. On the morning of 09/17 provided 2.5 mg of amlodipine and the patient did not experience any symptoms. Continue to provide milligrams amlodipine daily -Monitor closely for any development of symptoms -Use caution when adding or removing antihypertensive agents. -2.5 mg amlodipine daily #Acute hypertensive crisis in the setting of chronic hypertension -Resumed lisinopril -Amlodipine 2.5 mg daily #Atrial fibrillation -currently rate controlled -Eliquis resumed #Thrombocytopenia - chronic, 96 on admission - no signs of bleeding currently #Chronic ischemic vertebrobasilar artery brainstem stroke hx of, imaging workup for new stroke negative #Diabetes type 2 A1c 6.7 in 02/2020, repeat 7.2 on insulin 70/30 20u BID at home converted to 10u BID lantus BID with glargine SSI -BSG acceptable #Hearing loss chronic, hears better out of left ear #Vocal cord paralysis Unclear reason for being on cinemet possibly paralysis + hx of vertebasilar stroke versus 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 Grammatical errors, random word insertions, pronoun errors, and in complete sentences are an occasional consequence of the system. Any questions or concerns about the content, text, or information contained within the body of this dictation should be addressed directly to the physician for clarification. (2) Hypertension: (3) Atrial fibrillation: (4) Thrombocytopenia: (5) Chronic ischemic vertebrobasilar artery brainstem stroke: (6) Diabetes mellitus: (7) Hearing loss: (8) Vocal cord paralysis: (9) Dyslipidemia: (10) Gout: (11) Coronary artery disease: (12) Diabetic neuropathy: (13) Hypothyroid: (14) Proctitis: Admission and Anticipated Discharge Date Admission Date: September 16, 2020 Supervising Physician Co-Signing Physician Notes I personally examined the patient and verified all yung points of history and exam, discussed case, and agree with decision making with Dr Link. Feels good just waiting for rehab now. No recurrence of his previous symptoms. Vitals noted, awake and alert pleasant no distress. HEENT normocephalic atraumatic mucous membranes moist. Breathing unlabored no accessory muscle use good effort. Slurred speech but back to baseline, no real facial droop, may be very very slightly on the right but definitely corrects Hypertensive emergency BP now normal He is asymptomatic Keep current med plan Right-sided facial droop 09/16while we were targeting a degree of permissive hypertension and slowly bring his blood pressure down, 09/16 he was briefly mid range normotensive. At this point time I strongly suspected a watershed effect, and while the bulk of the stroke that he knows was right-sided leaving him with left-sided deficits, his MRI does also show a small left-sided stroke, and the watershed effect could easily have been unmasking of that. At any rate his deficits were small enough and transient enough that thrombolytics would have been more risk of bleed than potential benefit, and his symptoms yet again to clarify appeared mostly related to watershed effect of his relative hypotension having gone from very elevated blood pressures to normotensive pressures. He responded beautifully to a fluid bolus and his new deficits resolved. Continue secondary risk reduction as far as stroke, and we scaled back on his antihypertensive regimen to allow permissive hypertension to continue - however, today his pressures have normalized with less medications and no symptoms. DispositionPT/OT eval and treat, anticipate the need for rehab. Otherwise as above. Subjective Patient sleeping comfortably in bed this morning upon waking up reporting no acute distress. Reports he is feeling better and not experiencing any other symptoms which are presented. We discussed that the patient's symptoms are mainly due to his hypertension and the patient verbalized understanding. Patient is tolerating his diet, voiding, stooling, sleeping well. All questions were answered no acute concerns concerns Physical Exam Physical Exam: General: No acute distress HEENT: Normocephalic atraumatic Neck: Normal to visual inspection Cardiac: Irregularly irregular rhythm, normal rate, I did not appreciate significant murmurs rubs or gallops Respiratory: Clear to auscultation bilaterally with symmetrical chest expansion did not appreciate significant wheezes, rales, rhonchi GI: Distended abdomen, positive for bowel sounds, nontender Neuro: Alert and oriented to person, previous deficits from prior extremities however for the most part CN II through XII grossly intact, strength is baseline , sensory function is baseline Psych: Calm and cooperative with the interview Results & Data Results & Data ([facility]) Vital Signs (Past 12 Hours) Vital Signs Temp Pulse Pulse Resp BP Pulse Ox 09/17/20 06:56 36.4 C L 61 20 118/74 97 09/17/20 03:00 36.7 C 75 20 135/75 95 09/17/20 00:23 73 09/16/20 22:48 36.7 C 75 20 149/88 H 96 Laboratory Results 09/17/20 09/17/20 09/16/20 Range/Units 05:54 05:54 20:37 WBC 5.99 (4.8-10.8) K/uL RBC 4.84 (4.7-6.1) M/uL Hgb 14.6 (14.0-18.0) g/dL Hct 41.9 L (42-52) % MCV 86.6 (80-100) fL MCH 30.2 (25-34) pg MCHC 34.8 (32-36) g/dL RDW Std Deviation 44.2 (36.4-46.3) fL RDW Coeff of Eben 14.1 (11.5-14.5) % Plt Count 90 L (130-400) K/uL MPV 11.5 H (7.4-10.4) fL Immature Gran % (Auto) 0.2 % Neut % (Auto) 56.5 % Lymph % (Auto) 29.9 % Pacific % (Auto) 9.5 % Eos % (Auto) 3.7 % Baso % (Auto) 0.2 % Neut # (Auto) 3.39 (1.4-6.5) K/uL Lymph # (Auto) 1.79 (1.2-3.4) K/uL Pacific # (Auto) 0.57 (0.11-0.59) K/uL Eos # (Auto) 0.22 (0-0.5) K/uL Baso # (Auto) 0.01 (0-0.2) K/uL Immature Gran # (Auto) 0.01 (0.00-0.02) K/uL Sodium 142 (136-145) mmol/L Potassium 3.9 (3.5-5.1) mmol/L Chloride 110 H (98-107) mmol/L Carbon Dioxide 26 (21-32) mmol/L Anion Gap 6.0 (3-11) BUN 18 (7-18) mg/dl Creatinine 1.11 (0.6-1.4) mg/dl Est Cr Clr Drug Dosing 52.8 ml/min Est GFR ( Amer) 70.3 Est GFR (Non-Af Amer) 60.7 BUN/Creatinine Ratio 16.3 (10-20) Glucose 104 H (70-99) mg/dl POC Glucose 221 H (70-99) mg/dl Calcium 8.6 (8.5-10.1) mg/dl 0209/16/20 09/16/20 Range/Units 16:07 11:25 07:15 WBC (4.8-10.8) K/uL RBC (4.7-6.1) M/uL Hgb (14.0-18.0) g/dL Hct (42-52) % MCV (80-100) fL MCH (25-34) pg MCHC (32-36) g/dL RDW Std Deviation (36.4-46.3) fL RDW Coeff of Eben (11.5-14.5) % Plt Count (130-400) K/uL MPV (7.4-10.4) fL Immature Gran % (Auto) % Neut % (Auto) % Lymph % (Auto) % Pacific % (Auto) % Eos % (Auto) % Baso % (Auto) % Neut # (Auto) (1.4-6.5) K/uL Lymph # (Auto) (1.2-3.4) K/uL Pacific # (Auto) (0.11-0.59) K/uL Eos # (Auto) (0-0.5) K/uL Baso # (Auto) (0-0.2) K/uL Immature Gran # (Auto) (0.00-0.02) K/uL Sodium (136-145) mmol/L Potassium (3.5-5.1) mmol/L Chloride (98-107) mmol/L Carbon Dioxide (21-32) mmol/L Anion Gap (3-11) BUN (7-18) mg/dl Creatinine (0.6-1.4) mg/dl Est Cr Clr Drug Dosing ml/min Est GFR ( Amer) Est GFR (Non-Af Amer) BUN/Creatinine Ratio (10-20) Glucose (70-99) mg/dl POC Glucose 151 H 161 H 120 H (70-99) mg/dl Calcium (8.5-10.1) mg/dl Resident Activity Tracking Resident Involvement: Resident Care Provided Care Provided: Adult Hospital Medicine (1) Hypothyroid Hypothyroidism type: acquired Qualified Code(s): E03.9 - Hypothyroidism, unspecified (2) Hypertension Hypertension type: essential hypertension Qualified Code(s): I10 - Essential (primary) hypertension
[2020-09-17] MEDS ORDERED: amLODIPine BESYLATE 5 MG TAB PO SCH (09:00)
[2020-09-17] MEDS: ASPIRIN 81 MG ECTAB PO SCH (09:02)
[2020-09-17] MEDS: lisinopril 10 MG TAB PO SCH (09:02)
[2020-09-17] MEDS: FINASTERIDE 5 MG TAB PO SCH (09:02)
[2020-09-17] MEDS: TAMSULOSIN HCL 0.4 MG CAP PO SCH (09:03)
[2020-09-17] MEDS: CARBIDOPA/LEVODOPA 25/100MG TAB PO SCH ×3 (09:03→20:51)
[2020-09-17] MEDS: DULoxetine HCL 60 MG CAP PO SCH (09:03)
[2020-09-17] MEDS: MAGNESIUM OXIDE 400 MG TAB PO SCH (09:03)
[2020-09-17] MEDS: APIXABAN 2.5 MG TAB PO SCH ×2 (09:04→20:51)
[2020-09-17] MEDS: PANTOprazole 40 MG TAB PO SCH (09:04)
[2020-09-17] MEDS: INSULIN GLARGINE SOLOSTAR 100 UNITS/ML 3 ML PEN SC SCH ×2 (09:04→20:52)
[2020-09-17] MEDS: INSULIN ASPART 100 UNITS/ML 3 ML PEN SC SCH ×4 (09:05→20:52)
[2020-09-17] MEDS: DICLOFENAC SOD 1% GEL 100 GM TUBE EXT SCH ×4 (09:05→20:52)
[2020-09-17] MEDS: PREGABALIN 100 MG CAP PO SCH ×3 (09:08→20:54)
[2020-09-17] MEDS: METHYLCELLULOSE POWDER 454 GM JAR PO SCH (09:09)
--- NOTE | 2020-09-17 16:00 | Billing Data ---
Date of Service September 17, 2020 Coding Level of Care Code 66446 Subseq Hosp Care Lvl 2
[2020-09-17] MEDS: ATORVASTATIN 40 MG TAB PO SCH (20:51)
[2020-09-18] MEDS: LEVOTHYROXINE SODIUM 50 MCG TABLET PO SCH (05:26)
[2020-09-18] MEDS: DULoxetine HCL 60 MG CAP PO SCH (08:10)
[2020-09-18] MEDS: CARBIDOPA/LEVODOPA 25/100MG TAB PO SCH ×3 (08:11→20:11)
[2020-09-18] MEDS: ASPIRIN 81 MG ECTAB PO SCH (08:12)
[2020-09-18] MEDS: APIXABAN 2.5 MG TAB PO SCH ×2 (08:12→20:13)
[2020-09-18] MEDS: PANTOprazole 40 MG TAB PO SCH (08:12)
[2020-09-18] MEDS: TAMSULOSIN HCL 0.4 MG CAP PO SCH (08:12)
[2020-09-18] MEDS: FINASTERIDE 5 MG TAB PO SCH (08:13)
[2020-09-18] MEDS: MAGNESIUM OXIDE 400 MG TAB PO SCH (08:13)
[2020-09-18] MEDS: lisinopril 10 MG TAB PO SCH (08:13)
[2020-09-18] MEDS: INSULIN GLARGINE SOLOSTAR 100 UNITS/ML 3 ML PEN SC SCH ×2 (08:14→20:34)
[2020-09-18] MEDS: DICLOFENAC SOD 1% GEL 100 GM TUBE EXT SCH ×4 (08:14→20:12)
[2020-09-18] MEDS: METHYLCELLULOSE POWDER 454 GM JAR PO SCH (08:15)
[2020-09-18] MEDS: INSULIN ASPART 100 UNITS/ML 3 ML PEN SC SCH ×4 (08:16→20:33)
[2020-09-18] MEDS: PREGABALIN 100 MG CAP PO SCH ×3 (08:20→20:11)
--- NOTE | 2020-09-18 17:08 | Hospitalist Progress Note ---
Date of Service September 18, 2020 Assessment & Plan (1) Altered mental status: 84 yo M with PMHx of prior CVA who presented with new onset neurologic symptoms. Blood pressure at the time of admission was 226/118. Altered Mental Status - Stroke work-up on admission negative for acute ischemia/hemorrhage. Cannot rule out TIA, although suspect symptoms are secondary to hypertensive emergency - symptoms resolved when BP was lowered - neurology was consulted, recommending optimizing risk factors. Acute hypertensive crisis in the setting of chronic hypertension - home medication regimen was Lisinopril 5mg, daily. Increase to 10mg, daily. - with regards to complaints of orthostatic hypotension, recommend adequate hydration and standing up slowly Atrial fibrillation - currently rate controlled - Eliquis resumed Thrombocytopenia - chronic, 96 on admission - no signs of bleeding currently Chronic ischemic vertebrobasilar artery brainstem stroke hx of, imaging workup for new stroke negative Diabetes type 2 - A1c 7.2 - on insulin 70/30 20u BID at home converted to 10u BID lantus BID with glargine SSI Hearing loss chronic, hears better out of left ear Dyslipidemia -Continue statin Coronary artery disease Restarted statin and Plavix Diabetic neuropathy continue duloxetine and Lyrica Hypothyroid continue Levothyroxine daily Proctitis - continue finasteride DVT ppx: lovenox sq. FEN/GI: Heart healthy, Carb consistent 2 Code Status: conditional code. OK for compressions, no intubation. Dispo: Med/surg with tele Admission and Anticipated Discharge Date Admission Date: September 16, 2020 Supervising Physician Co-Signing Physician Notes Patient seen and examined with PGY-2 Dr. Galvez. Agree with history, exam findings, assessment and plan of care as outlined. In brief, Mr. Martinez is a 84 year old M vasculopath with hx CVA, CAD, HTN, HLD, DM2, Afib on eliquis, gout with hypertensive emergency. Reports that he feels woozy with position changes. These resolve spontaneously and rather quickly. VS and nursing notes reviewed. Intermittently slurred speech. Difficulty with hearing as well, but both seem to be lately. Negative pronator drift. Upper and lower extremity strength intact. CN II-XII in tact. 1. Acute hypertensive encephalopathy. Resolved. 2. AMS, slurred speech due to watershed/hypotension. Discontinued amlodipine and increased home Lisinopril. Will need to watch BPs carefully as he tends to get a bit orthostatic. Would target BPs to standing or seated BPs rather than supine readings to try mitigate this. 3. Afib. Rate controlled. Anticoagulated with Eliquis. 4. Chronic thrombocytopenia. Stable. No bleeding. 5. DM with neuropathy. A1C on admission 7.2. Home regimen is 70/30 20U BID. Here, on 10U lantus BID with ssi. Continue home duloxetine and Lyrica. On discharge, can resume home 70/30 insulin regiment. 6. Hx of ischemic vertebrobasilar artery brainstem stroke and CAD. Continue home statin and Plavix. 7. Hypothyroid. Continue home levothyroxine. Dispo: pending placement/insurance authorization and repeat OT evaluation. Subjective no acute events overnight. Eating well. Reports symptoms of lightheadedness when going from sitting to standing position that occurs chronically Review of Systems Review of Systems: All systems reviewed & are unremarkable except as noted in HPI & below Physical Exam Constitutional: WD/WN, vitals as above cooperative; no acute distress Eyes: + anicteric sclerae ENMT: external ear and nose normal, oropharynx normal Neck: normal visual inspection and trachea midline Respiratory: normal respiratory effort, lungs clear to auscultation Cardiovascular: RRR, no murmur, no edema Heart Sounds: normal S1 and normal S2 Gastrointestinal (Abdomen): normal bowel sounds, soft, nontender, no hepatosplenomegaly Skin: no rashes, warm and dry Neurologic: Speech / Cognition: + abnormal speech Results & Data Results & Data ([facility]) Vital Signs (Past 12 Hours) Vital Signs Temp Pulse Pulse Resp BP Pulse Ox 09/18/20 15:32 36.6 C 68 18 150/80 H 97 09/18/20 13:18 95 09/18/20 11:05 36.3 C L 58 L 18 117/70 95 09/18/20 10:46 49 L 136/82 09/18/20 10:37 58 L 95/65 L 09/18/20 09:29 59 L 09/18/20 07:58 36.4 C L 67 18 144/89 H 97 Resident Activity Tracking Resident Involvement: Resident Care Provided Care Provided: Adult [facility] Medicine
[2020-09-18] MEDS: ATORVASTATIN 40 MG TAB PO SCH (20:12)
[2020-09-18] MEDS ORDERED: MELATONIN 3 MG TAB PO PRN (21:26)
[2020-09-19] MEDS: LEVOTHYROXINE SODIUM 50 MCG TABLET PO SCH (05:47)
[2020-09-19] MEDS: CARBIDOPA/LEVODOPA 25/100MG TAB PO SCH ×3 (08:10→21:43)
[2020-09-19] MEDS: PANTOprazole 40 MG TAB PO SCH (08:10)
[2020-09-19] MEDS: TAMSULOSIN HCL 0.4 MG CAP PO SCH (08:11)
[2020-09-19] MEDS: lisinopril 10 MG TAB PO SCH (08:11)
[2020-09-19] MEDS: FINASTERIDE 5 MG TAB PO SCH (08:11)
[2020-09-19] MEDS: DULoxetine HCL 60 MG CAP PO SCH (08:11)
[2020-09-19] MEDS: APIXABAN 2.5 MG TAB PO SCH ×2 (08:12→21:45)
[2020-09-19] MEDS: MAGNESIUM OXIDE 400 MG TAB PO SCH (08:12)
[2020-09-19] MEDS: INSULIN ASPART 100 UNITS/ML 3 ML PEN SC SCH ×4 (08:13→21:47)
[2020-09-19] MEDS: INSULIN GLARGINE SOLOSTAR 100 UNITS/ML 3 ML PEN SC SCH ×2 (08:14→21:46)
[2020-09-19] MEDS: DICLOFENAC SOD 1% GEL 100 GM TUBE EXT SCH ×4 (08:14→21:44)
[2020-09-19] MEDS: METHYLCELLULOSE POWDER 454 GM JAR PO SCH (08:14)
[2020-09-19] MEDS: ASPIRIN 81 MG ECTAB PO SCH (08:14)
[2020-09-19] MEDS: PREGABALIN 100 MG CAP PO SCH ×3 (08:18→21:56)
--- NOTE | 2020-09-19 18:10 | Hospitalist Progress Note ---
Date of Service September 19, 2020 Assessment & Plan (1) Altered mental status: 84 yo M with PMHx of prior CVA who presented with new onset neurologic symptoms. Blood pressure at the time of admission was 226/118. Altered Mental Status - Stroke work-up on admission negative for acute ischemia/hemorrhage. Cannot rule out TIA, although suspect symptoms are secondary to hypertensive emergency - symptoms resolved when BP was lowered - neurology was consulted, recommending optimizing CVD risk factors. Acute hypertensive crisis in the setting of chronic hypertension - home medication regimen was Lisinopril 5mg, daily. Increase to 10mg, daily. - with regards to complaints of orthostatic hypotension, recommend adequate hydration and standing up slowly - BP now at goal at 145/81 Atrial fibrillation - currently rate controlled - continue Eliquis Thrombocytopenia - chronic, 96 on admission - no signs of bleeding currently Chronic ischemic vertebrobasilar artery brainstem stroke hx of, imaging workup for new stroke negative Diabetes type 2 - A1c 7.2 - on insulin 70/30 20u BID at home converted to 10u BID lantus BID with glargine SSI Hearing loss chronic, hears better out of left ear Dyslipidemia -Continue high intensity statin Coronary artery disease - continue high intensity statin and Plavix Diabetic neuropathy continue duloxetine and Lyrica Hypothyroid continue Levothyroxine daily Proctitis - continue finasteride DVT ppx: lovenox sq. FEN/GI: Heart healthy, Carb consistent 2 Code Status: conditional code. OK for compressions, no intubation. Dispo: Med/surg. Authorization to [facility] denied - consider peer to peer vs. SNF Admission and Anticipated Discharge Date Admission Date: September 16, 2020 Supervising Physician Co-Signing Physician Notes Patient seen and examined with PGY-2 Dr. Galvez. Agree with history, exam findings, assessment and plan of care as outlined. In brief, Mr. Martinez is a 84 year old M vasculopath with hx CVA, CAD, HTN, HLD, DM2, Afib on eliquis, gout with hypertensive emergency. Feeling well. No complaints this morning. VS and nursing notes reviewed. Intermittently slurred speech. Difficulty with hearing as well, but both seem to be chronic and not worsening. 1. Acute hypertensive encephalopathy. Resolved. 2. AMS, slurred speech due to watershed/hypotension. Increased home lisinopril to 10mg. Will need to watch BPs carefully as he tends to get a bit orthostatic. Would target BPs to standing or seated BPs rather than supine readings to try mitigate this. 3. Afib. Rate controlled. Anticoagulated with Eliquis. 4. Chronic thrombocytopenia. Stable. No bleeding. 5. DM with neuropathy. A1C on admission 7.2. Home regimen is 70/30 20U BID. Here, on 10U lantus BID with ssi. Continue home duloxetine and Lyrica. On discharge, can resume home 70/30 insulin regiment. 6. Hx of ischemic vertebrobasilar artery brainstem stroke and CAD. Continue home statin and Plavix. 7. Hypothyroid. Continue home levothyroxine. Dispo: [facility] declined so will try for SNF. Subjective no acute events overnight. Patient reports feeling well. Eager to leave hospital. Review of Systems Review of Systems: All systems reviewed & are unremarkable except as noted in HPI & below Physical Exam Constitutional: WD/WN, vitals as above cooperative; no acute distress Eyes: + anicteric sclerae ENMT: external ear and nose normal, oropharynx normal Neck: normal visual inspection and trachea midline Respiratory: normal respiratory effort, lungs clear to auscultation Cardiovascular: RRR, no murmur, no edema Heart Sounds: normal S1 and normal S2 Gastrointestinal (Abdomen): normal bowel sounds, soft, nontender, no hepatosplenomegaly Skin: no rashes, warm and dry Neurologic: Speech / Cognition: + abnormal speech Results & Data Results & Data ([facility]) Vital Signs (Past 12 Hours) Vital Signs Temp Pulse Pulse Resp BP Pulse Ox 09/19/20 14:58 36.3 C L 64 18 145/78 H 98 09/19/20 11:19 36.9 C 55 L 20 117/65 98 09/19/20 10:07 52 L 09/19/20 07:16 36.5 C 50 L 20 116/67 95 Resident Activity Tracking Resident Involvement: Resident Care Provided Care Provided: Adult Hospital Medicine
[2020-09-19] MEDS: ATORVASTATIN 40 MG TAB PO SCH (21:44)
[2020-09-20] MEDS: LEVOTHYROXINE SODIUM 50 MCG TABLET PO SCH (06:18)
[2020-09-20] MEDS: INSULIN GLARGINE SOLOSTAR 100 UNITS/ML 3 ML PEN SC SCH (08:33)
[2020-09-20] MEDS: INSULIN ASPART 100 UNITS/ML 3 ML PEN SC SCH ×2 (08:36→12:04)
[2020-09-20] MEDS: ASPIRIN 81 MG ECTAB PO SCH (08:40)
[2020-09-20] MEDS: TAMSULOSIN HCL 0.4 MG CAP PO SCH (08:40)
[2020-09-20] MEDS: MAGNESIUM OXIDE 400 MG TAB PO SCH (08:40)
[2020-09-20] MEDS: APIXABAN 2.5 MG TAB PO SCH (08:40)
[2020-09-20] MEDS: lisinopril 10 MG TAB PO SCH (08:40)
[2020-09-20] MEDS: FINASTERIDE 5 MG TAB PO SCH (08:40)
[2020-09-20] MEDS: CARBIDOPA/LEVODOPA 25/100MG TAB PO SCH (08:41)
[2020-09-20] MEDS: PANTOprazole 40 MG TAB PO SCH (08:41)
[2020-09-20] MEDS: DULoxetine HCL 60 MG CAP PO SCH (08:42)
[2020-09-20] MEDS: PREGABALIN 100 MG CAP PO SCH (08:56)
--- NOTE | 2020-09-20 10:50 | Discharge Summary ---
Date of Service September 20, 2020 Admission HPI Per Admitting Provider 84 yo M hx multiple CVAs, Afib on eliquis, CKD3, vocal cord paralysis, hearing loss, gout, HLD, CAD s/p [employer] brought to ED by ambulance for concerns of stroke. Son says last known well was at 12:30 pm today. He returned home at 4:30 pm and his father was having trouble speaking, didn't recognize his son, and wasn't following commands so he brought him to the ER. ED course significant for stroke alert called on arrival, initial BPs of 220s/118. received 10 mg iv labetalol, started on nicardipine drip with telestroke consult. did not receive tpa. HPI/ROS limited due to ongoing patient confusion. Admission Exam Per Admitting Provider Constitutional: + ill appearing and + language barrier Respiratory: + labored breathing; no respiratory distress, does not use accessory muscles, no cough and + not able to speak in complete sentence Auscultation: lungs clear to auscultation bilaterally; no crackles and no rhonchi Cardiovascular: Rate/Rhythm: regular rate and + irregularly irregular Heart Sounds: no murmur Gastrointestinal (Abdomen): Inspection/Auscultation: abdomen normal to inspection, + abdomen distended and normal bowel sounds Percussion/Palpation: abdomen soft; abdomen nontender and no guarding Musculoskeletal: Able to lift and hold both arms in the air, squeeze both hands on command with equal strength Neurologic: moves all extremities, awake and + confused; no focal motor deficits Speech / Cognition: + abnormal speech able to keep eyelids closed against resistance, did not follow instructions to raise eyebrows, CN 12 intact Principal Diagnosis Hypertensive Emergency Discharge Exam Constitutional WD/WN, vitals as above cooperative; no acute distress Eyes + anicteric sclerae ENMT external ear and nose normal, oropharynx normal Neck normal visual inspection and trachea midline Respiratory normal respiratory effort, lungs clear to auscultation Cardiovascular RRR, no murmur, no edema Heart Sounds: normal S1 and normal S2 Gastrointestinal (Abdomen) normal bowel sounds, soft, nontender, no hepatosplenomegaly Skin no rashes, warm and dry Neurologic Speech / Cognition: + abnormal speech Discharge Data Allergies Allergy/AdvReac Type Severity Reaction Status Date / Time hydrocodone AdvReac Mild Dizziness, Verified 09/14/20 19:19 [From Panlor Nausea (hydrocodone-acetamin)] oxycodone AdvReac Mild NAUSEA/VOMI Verified 09/14/20 19:19 TING tramadol AdvReac Mild confusion Verified 09/14/20 19:19 Consultations 09/14/20 19:11 ED Decision to Admit Stat 09/15/20 01:09 Consult Case Management - Discharge Planning Routine Consult Neurology Routine Ordered Studies 09/14/20 17:15 CT head/brain wo con Stat 09/14/20 17:18 CT angio head w con Stat CT angio neck with con Stat 09/14/20 20:18 MR brain wo con Urgent Hospital Course (1) Altered mental status: 84 yo M with PMHx of prior CVA who presented with new onset neurologic symptoms. Blood pressure at the time of admission was 226/118. Altered Mental Status - Stroke work-up on admission negative for acute ischemia/hemorrhage. Cannot rule out TIA, although suspect symptoms are secondary to hypertensive emergency - symptoms resolved when BP was lowered - neurology was consulted, recommending optimizing CVD risk factors. Acute hypertensive crisis in the setting of chronic hypertension - home medication regimen was Lisinopril 5mg, daily. Recommend increasing to 10mg, daily. - with regards to complaints of orthostatic hypotension, recommend adequate hydration and standing up slowly - BP now at goal at 118/76 Atrial fibrillation - currently rate controlled - continue Eliquis Thrombocytopenia - chronic, 96 on admission - no signs of bleeding currently Chronic ischemic vertebrobasilar artery brainstem stroke - hx of, imaging workup for new stroke negative - continue ASA, statin Diabetes type 2 - A1c 7.2, age goal for age - on insulin 70/30 20u BID - diabetic diet Hearing loss chronic, hears better out of left ear Dyslipidemia -Continue high intensity statin Coronary artery disease - continue high intensity statin and Plavix Diabetic neuropathy continue duloxetine and Lyrica Hypothyroid continue Levothyroxine daily Proctitis - continue finasteride Total Time Total Time Spent Total Time Spent (In Minutes): see attending attestation Discharge Plan Discharge Items Patient Disposition: Transfer Halfway Fac Reason For Visit: STROKE LIKE SYMPTOMS Discharge Diagnosis: Hypertensive Emergency Activity: Resume your previous activity Non-emergency contact: Primary Care Provider Call non-emergency contact if: your symptoms worsen Follow-up/Referrals: Alexx Comer MD [Primary Care Provider] - Diet: Heart Healthy Addtl Attending Provider Instructions: 84 yo M with PMHx of prior CVA who presented with new onset neurologic symptoms. Blood pressure at the time of admission was 226/118. Altered Mental Status - Stroke work-up on admission negative for acute ischemia/hemorrhage. Cannot rule out TIA, although suspect symptoms are secondary to hypertensive emergency - symptoms resolved when BP was lowered - neurology was consulted, recommending optimizing CVD risk factors. Acute hypertensive crisis in the setting of chronic hypertension - home medication regimen was Lisinopril 5mg, daily. Recommend increasing to 10mg, daily. - with regards to complaints of orthostatic hypotension, recommend adequate hydration and standing up slowly - BP now at goal at 118/76 Atrial fibrillation - currently rate controlled - continue Eliquis Thrombocytopenia - chronic, 96 on admission - no signs of bleeding currently Chronic ischemic vertebrobasilar artery brainstem stroke - hx of, imaging workup for new stroke negative - continue ASA, statin Diabetes type 2 - A1c 7.2 - on home insulin 70/30 20u BID - diabetic diet Hearing loss chronic, hears better out of left ear Dyslipidemia -Continue high intensity statin Coronary artery disease - continue high intensity statin and Plavix Diabetic neuropathy continue duloxetine and Lyrica Hypothyroid continue Levothyroxine daily Proctitis - continue finasteride Pending Studies at Discharge: No Stand-Alone Forms: My [facility] Skilled Items Patient informed of condition?: Yes DNR: No Discharge Level of Care: Acute rehab Communicable Disease: No Discharge Prognosis: Improving Lines: None Urinary Catheter: No Medications and DC Order Prescriptions: New lisinopril 10 mg Tablet 10 mg PO QAM 30 Days Qty: 30 RF: 0 Continued carbidopa-levodopa [Sinemet] 25-100 mg tablet 0.5 tab PO TID Qty: 45 RF: 1 Novolin 70-30 FlexPen U-100 100 unit/mL (70-30) insulin pen 20 unit SQ BID Qty: 15 RF: 5 diclofenac sodium [Voltaren] 1 % gel See Rx Instructions TOP QID Qty: 100 RF: 3 atorvastatin 80 mg tablet 80 mg PO HS Qty: 90 RF: 3 finasteride 5 mg tablet 5 mg PO QAM Qty: 90 RF: 3 levothyroxine 50 mcg tablet 50 mcg PO QAM Qty: 90 RF: 3 tamsulosin 0.4 mg capsule 0.4 mg PO QAM Qty: 90 RF: 3 Eliquis 2.5 mg tablet 2.5 mg PO BID Qty: 180 RF: 3 pregabalin 100 mg capsule 100 mg PO TID Qty: 90 RF: 3 duloxetine 60 mg capsule,delayed release(DR/EC) 60 mg PO DAILY RF: 0 aspirin [Aspir-81] 81 mg Tablet,Delayed Release (Dr/Ec) 81 mg PO QAM RF: 0 omeprazole 20 mg capsule,delayed release(DR/EC) 40 mg PO QAM RF: 0 Fiber Therapy (m-cell/sugar) 2 gram/19 gram Powder 2 g PO DAILY Qty: 454 RF: 0 hydrocortisone acetate [Anucort-HC] 25 mg suppository 25 mg SD DAILY PRN (Reason: hemmoriods) RF: 0 polyethylene glycol 3350 [Miralax] 17 gram/dose powder 17 g PO DAILY PRN (Reason: Constipation) RF: 0 magnesium oxide 400 mg magnesium tablet 400 mg PO DAILY RF: 0 acetaminophen [Tylenol Extra Strength] 500 mg Tablet 500 mg PO Q6H PRN (Reason: Pain) RF: 0 Discontinued lisinopril 5 mg tablet 5 mg PO DAILY RF: 0 Discharge Orders: Discharge Order (Routine); Ordered 09/20/20 Ordered By: Maria Luz Paniagua/Other Patient Handouts: High Blood Sugar (Hyperglycemia), Hypoglycemia (Low Blood Sugar), Managing Type 2 Diabetes Admission Data Admit Date/Time: 09/16/20 08:52 Attending Provider: Rodrigo Ahuja Admit Provider: Mary Clifford Primary Care Provider: Alexx Comer [facility] ; [facility] ; [facility], ; Jesse Suarez ; Mikal Yates Other Interventions: Discharge Summary Assessment (RN) Last Done: 09/20/20 12:09 Supervising Physician Co-Signing Physician Notes Patient seen and examined with PGY-2 Dr. Galvez. Agree with history, exam findings, assessment and plan of care as outlined. In brief, Mr. Martinez is a 84 year old M vasculopath with hx CVA, CAD, HTN, HLD, DM2, Afib on eliquis, gout with hypertensive emergency. Feeling well. No complaints this morning. Eager to be discharged from the hospital. VS and nursing notes reviewed. Well appearing, no choking or coughing with eating his egg salad sandwich during lunch. 1. Acute hypertensive encephalopathy. Resolved. 2. AMS, slurred speech due to watershed/hypotension. Increased home lisinopril to 10mg. Will need to watch BPs carefully as he tends to get a bit orthostatic. Would target BPs to standing or seated BPs rather than supine readings to try mitigate this. 3. Afib. Rate controlled. Anticoagulated with Eliquis. 4. Chronic thrombocytopenia. Stable. No bleeding. 5. DM with neuropathy. A1C on admission 7.2. Home regimen is 70/30 20U BID. Here, on 10U lantus BID with ssi. Continue home duloxetine and Lyrica. On discharge, can resume home 70/30 insulin regiment. 6. Hx of ischemic vertebrobasilar artery brainstem stroke and CAD. Continue home statin and Plavix. 7. Hypothyroid. Continue home levothyroxine. Dispo: Discharge to [facility]. I personally spent 35 minutes discharge planning for this patient. Resident Activity Tracking Resident Involvement: Resident Care Provided Care Provided: Adult Hospital Medicine
[2020-09-20] MEDS: METHYLCELLULOSE POWDER 454 GM JAR PO SCH (12:01)
[2020-09-20] MEDS: DICLOFENAC SOD 1% GEL 100 GM TUBE EXT SCH (12:02)
== END 2020-09-20 13:13 | DRG 78 ==
LOC: ED 17:09 → 2S 17:09 → SUATTDRO 23:52 → 2S 09-15 00:52 → SUATTDRO 09-16 08:52 → 2W 09-19 17:53

== ENCOUNTER 2021-05-04 11:37 | Inpatient (IN) ==
[2021-05-04 12:23] LABS: Hematocrit (blood only) 43.4 % (42-52); Hemoglobin 15.2 g/dL (14.0-18.0); Mean Corpuscular Hemoglobin 30.8 pg (25-34); Mean Corpuscular Volume 87.9 fL (80-100); Mean Platelet Volume 12.3 fL (7.4-10.4); Platelet Count 97 K/uL (130-400); RDW Coefficient of Variation 13.9 % (11.5-14.5); RDW Standard Deviation 44.8 fL (36.4-46.3); Red Blood Count 4.94 M/uL (4.7-6.1); White Blood Count 5.63 K/uL (4.8-10.8)
[2021-05-04 12:27] LABS: INR 1.1 (0.9-1.1); Partial Thromboplastin Ratio 1.1; Partial Thromboplastin Time 29.1 Seconds (21.0-31.0); Prothrombin Time 11.2 Seconds (9.0-12.0)
[2021-05-04 12:35] LABS: Albumin Level 3.3 gm/dl (3.4-5.0); BUN Creatinine Ratio 12.2 (10-20); Calcium 9.1 mg/dl (8.5-10.1); Creatinine Clr Calc Pharmacy 42.4 ml/min; Est GFR (African American) 50.5 ml/min; Est GFR (Non-African American) 43.6 ml/min; Magnesium 2.3 mg/dl (1.8-2.4)
--- NOTE | 2021-05-04 12:35 | CT Scan Report ---
CT head/brain wo con CLINICAL HISTORY: 85 years-old Male with Stroke Alert. Acutely altered mental status with strokelike symptoms TECHNIQUE: Multiple axial CT images of the head were obtained without contrast. A dose lowering tech nique was utilized adhering to the principles of ALARA. CT DOSE: 1219.50 mGycm COMPARISON: Head CT 09/14/2019 FINDINGS: No acute intracranial hemorrhage, midline shift, intracranial mass, hydrocephalus, territorial ischem ia or abnormal extra-axial collection. Age-related involutional changes. White matter hypodensities s uggestive of chronic microvascular ischemic disease. Chronic lacunar infarcts of the basal ganglia an d left thalamus. Vascular calcifications. Encephalomalacia of the right temporal lobe is suggestive o f a chronic infarct. The calvarium is intact. Moderate bilateral mastoid effusions. 3.8 cm polypoid mucosal thickening ab out the posterior left nasal turbinates and nasal aperture. Unremarkable soft tissues. Prior bilatera l lens repair. IMPRESSION: Chronic findings as above without acute intracranial abnormality. ACT 112: Negative or not required by law. The above report was generated using voice recognition software. It may contain grammatical, syntax o r spelling errors. Electronically signed by: Ranjeet Cisneros M.D. 05/04/2021 12:34 PM
[2021-05-04 12:38] LABS: Albumin Globulin Ratio 0.9 (0.9-2); Bilirubin,Total 0.7 mg/dl (0.2-1); Globulin 3.7 gm/dl (2.5-4.0)
--- NOTE | 2021-05-04 12:56 | Emergency Department Note ---
History of Present Illness General Chief complaint: Stroke/CVA Symptoms Stated complaint: BELIVES TO HAVE STROKE Time Seen by Provider: 05/04/21 12:40 Source: family Mode of arrival: EMS Limitations: altered mental status History of Present Illness Provider complaint: Confusion Associated symptoms: + denies other symptoms Treatments prior to arrival: none This is an 85-year-old male brought in by EMS due to confusion noted by family today. Patient lives with family. Son at bedside states he last saw him when they helped him get into bed last night between 8 and 8:15 PM. Son states this morning he got up and went to work, his left for work around 730 and they had not noticed that he was out of bed at that time. He states he lives downstairs in their house. Son states he typically calls him around 11 and when he could not get a hold of him he drove home and found him disoriented and confused. Son states he had pushed all the furniture in his room towards the center, and could not find his way to the bathroom. Son states no recent illness or medication changes. He has had a normal appetite recently. States he seemed normal last night and had no complaints. No prior similar events. Son states since arrival here he seems slightly less agitated but is also states that "the TV is spinning around". Patient has no history of vertigo to the son's knowledge. Son states he has had 2 prior mini strokes, but did not have these type of symptoms with those. Pt seen during a time of high acuity and national emergency pandemic while wearing PPE. Home Medications Medication Instructions Recorded Confirmed Type apixaban 2.5 mg tablet (Eliquis) 2.5 mg PO BID #180 tab 08/21/20 05/04/21 Rx atorvastatin 80 mg tablet 80 mg PO HS #90 tab 08/21/20 05/04/21 Rx finasteride 5 mg tablet 5 mg PO QAM #90 tab 08/21/20 05/04/21 Rx levothyroxine 50 mcg tablet 50 mcg PO QAM #90 tab 08/21/20 05/04/21 Rx tamsulosin 0.4 mg capsule 0.4 mg PO QAM #90 cap 08/21/20 05/04/21 Rx polyethylene glycol 3350 17 17 g PO DAILY PRN 09/14/20 05/04/21 History gram/dose oral powder (Miralax) triamcinolone acetonide 0.1 % 1 applic TOPICAL BID #30 g 10/02/20 05/04/21 Rx topical cream glycerin 2 drp OPHTHALMIC (EYE) BID 10/17/20 05/04/21 History blood sugar diagnostic (OneTouch #100 ea 10/18/20 03/28/21 Rx Ultra Blue Test Strip) lancets 33 gauge (OneTouch Delica #100 ea 10/18/20 03/28/21 Rx Plus Lancet) duloxetine 60 mg capsule,delayed 60 mg PO DAILY #90 cap 10/30/20 05/04/21 Rx release lisinopril 10 mg tablet 10 mg PO QAM 90 Days #90 tab 10/30/20 05/04/21 Rx omeprazole 20 mg capsule,delayed 40 mg PO QAM #180 cap 10/30/20 05/04/21 Rx release blood-glucose meter (OneTouch #1 ea 10/31/20 03/28/21 Rx Ultra2 Meter) magnesium oxide 400 mg PO BID #60 tab 11/20/20 05/04/21 Rx methylcellulose (with sugar) 2 2 g PO DAILY #454 g 01/19/21 05/04/21 Rx gram/19 gram oral powder (Fiber Therapy (methylcellulose-sugar)) insulin NPH-regular 70-30 U-100 20 unit SQ BID #15 ml 02/05/21 05/04/21 Rx insulin 100 unit/mL subcutaneous pen (Novolin 70-30 FlexPen U-100 Insulin) carbidopa 25 mg-levodopa 100 mg 0.5 tab PO TID #45 tab 02/06/21 05/04/21 Rx tablet (Sinemet) pen needle, diabetic 32 gauge x #100 ea 02/15/21 03/28/21 Rx 5/32" (BD Ultra-Fine Mary Carmen Pen Needle) famotidine 20 mg tablet 20 mg PO BID #60 tab 03/28/21 05/04/21 Rx docusate sodium 100 mg capsule 100 mg PO BID #60 cap 04/03/21 05/04/21 Rx hydrocortisone 2.5 % topical cream 1 applic [place] DAILY PRN #30 g 04/09/21 05/04/21 Rx with perineal applicator pregabalin 100 mg capsule 100 mg PO TID #90 cap 04/19/21 05/04/21 Rx aspirin 81 mg tablet,delayed 81 mg PO DAILY 05/04/21 05/04/21 History release diclofenac sodium 1 % topical gel See Rx Instructions TOP QID PRN 05/04/21 05/04/21 History Allergies Allergy/AdvReac Type Severity Reaction Status Date / Time hydrocodone AdvReac Mild Dizziness, Verified 05/04/21 15:17 [From Panlor Nausea (hydrocodone-acetamin)] oxycodone AdvReac Mild NAUSEA/VOMI Verified 05/04/21 15:17 TING tramadol AdvReac Mild confusion Verified 05/04/21 15:17 Past Med/Surg History Medical History (Updated 05/06/21 @ 15:04 by Tawnya Florez DO) Abnormal tympanic membrane Left and Right Atrial fibrillation with rapid ventricular response Atrial flutter with rapid ventricular response Bilateral otitis externa BPH (benign prostatic hyperplasia) 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 Yates--per son pt does not have any deficits Coronary artery disease Depression Difficulty swallowing DM type 2 (diabetes mellitus, type 2) Encounter for pre-operative examination Foreign body in lip GERD (gastroesophageal reflux disease) Hearing deficit History of cellulitis HTN (hypertension) Hyperlipidemia Hypothyroid Jaw disease Kidney stones Memory impairment Myocardial Infarction 2003--follows with Dr. [place] Neuropathy On anticoagulant therapy eliquis daily Osteoarthritis Paroxysmal atrial flutter Productive cough Stage III chronic kidney disease Stroke x3 total---follows with Dr. Yates Thrombocytopenia Transient hypotension Upper respiratory infection UTI (urinary tract infection) Surgical History History of bilateral cataract extraction History of esophagogastroduodenoscopy (EGD) History of kidney surgery History of lithotripsy x2 History of lumbar laminectomy History of tooth extraction Hx of CABG 2003 @ [facility] [place] [facility] [place] Family History Father Diabetes Coronary heart disease Mother Diabetes Coronary heart disease Myocardial infarction Sister Breast cancer Brother Coronary heart disease Son Family history of diabetes mellitus Family/Other Family history of diabetes mellitus grandson Other No family history of adverse response to anesthesia Denies family history of Ovarian cancer Prostate cancer Colorectal cancer Social History Smoking Status: Never smoker Second Hand Exposure: No; Do You Dip or Chew Tobacco: No; Tobacco Cessation Education Requested by Patient: No Hx Alcohol Use: No Hx Substance Use: No Preferred Language: Slovak Communication Ability: Effective Communication Ability Comment: BISHOP PAIUTE- please keep hearing aids in!!! Visual Impairment: No Limitations Hearing Ability: Use of Hearing Aid Net C Developer Required: No Beliefs That Will Affect Care: None marital status: Current Living Situation: Spouse and Family Current Living Situation Comment: lives with son and in independent living per pt. current occupational status: retired current occupation: used to work in [employer] Other Information That Helps Us Care for You: No Feels Safe at Home: Yes Safety Concerns: Feels Safe At This Time Childhood Exposure to Second-Hand Smoke: Yes Dental Care, Regularly: No Physical Activity Frequency: Does not Exercise Seatbelt Use: always Sunscreen Use: No Assistive Devices: None Assistive Devices Comment: pt has hearing aid R in, but glasses and dentures, walker/cane at home. Review of Systems A total of 10 systems reviewed and were otherwise negative All systems reviewed & are unremarkable except as noted in HPI & below Physical Exam Vital Signs Vital Signs - 24 hr 05/04/21 11:45 05/04/21 12:19 05/04/21 13:58 Temperature 36.6 C Temperature Source Temporal Artery Scan Pulse Rate 80 Pulse Rate [Finger] 70 Respiratory Rate 18 16 Blood Pressure 166/110 H Blood Pressure [Right Arm] 202/110 H Blood Pressure Mean 128 Blood Pressure Mean [Right Arm] 140 Pulse Oximetry 97 96 98 Oxygen Delivery Method Room Air Room Air Sepsis Recent Fever Within 48 Hours No Sepsis New/Unexplained Change in Mental Status No Sepsis Action Taken by Nursing No Action Required GENERAL: alert, well appearing, well nourished, no distress, non-toxic EYE EXAM: normal conjunctiva, PERRL and EOM's grossly intact OROPHARYNX: no exudate, no erythema, lips, buccal mucosa, and tongue normal and mucous membranes are moist NECK: supple, no nuchal rigidity, no adenopathy, non-tender LUNGS: Clear to auscultation. Normal chest wall mechanics, no w/r/r HEART: no murmurs, S1 normal and S2 normal ABDOMEN: abdomen soft, non-tender, normo-active bowel sounds, no masses, no rebound or guarding. BACK: Back is symmetrical on inspection and there is no deformity, no midline tenderness, no CVA tenderness. SKIN: no rashes and no bruising UPPER EXTREMITIES: upper extremities are grossly normal. FROM, nml pulses b/l. LOWER EXTREMITIES: No pitting edema. FROM, nml pulses b/l. NEURO EXAM: Normal sensorium, cranial nerves II-XII grossly intact, normal speech, no gross weakness of arms, no gross weakness of legs. Negative pronator drift, no limb ataxia noted. Gross sensation intact. Course Course 1436: Updated son at bedside. Blood pressure still elevated but improved. Still awaiting urine specimen. 1445: Discussed with Dr. Saravia, managing hospitalist service. Administered Medications Apixaban (Apixaban 2.5 Mg Tab) 2.5 mg PO BID STEPH Stop: 06/03/21 20:59 Last Admin: 05/06/21 08:13 Dose: 2.5 mg Documented by: [id number] Admin: 05/05/21 21:35 Dose: 2.5 mg Documented by: [id number] Admin: 05/05/21 11:32 Dose: 2.5 mg Documented by: [id number] Admin: 05/04/21 21:32 Dose: Not Given Documented by: [id number] Aspirin (Aspirin 81 Mg Ectab) 81 mg PO DAILY STEPH Stop: 06/04/21 08:59 Last Admin: 05/06/21 08:15 Dose: 81 mg Documented by: [id number] Admin: 05/05/21 11:31 Dose: 81 mg Documented by: [id number] Atorvastatin Calcium (Atorvastatin 40 Mg Tab) 80 mg PO HS STEPH Stop: 06/03/21 20:59 Last Admin: 05/05/21 11:32 Dose: 80 mg Documented by: [id number] Admin: 05/04/21 21:32 Dose: Not Given Documented by: [id number] Calcium Polycarbophil (Calcium Polycarbophil 625mg Tab) 1,250 mg PO DAILY STEPH Stop: 06/04/21 08:59 Last Admin: 05/06/21 08:14 Dose: 1,250 mg Documented by: [id number] Admin: 05/05/21 11:34 Dose: 1,250 mg Documented by: [id number] Carbidopa/Levodopa (Carbidopa/Levodopa 25/100mg Tab) 0.5 tab PO TID STEPH Stop: 06/03/21 20:59 Last Admin: 05/06/21 14:25 Dose: 0.5 tab Documented by: [id number] Admin: 05/06/21 08:14 Dose: 0.5 tab Documented by: [id number] Admin: 05/05/21 21:35 Dose: 0.5 tab Documented by: [id number] Admin: 05/05/21 12:35 Dose: Not Given Documented by: [id number] Admin: 05/05/21 11:31 Dose: 0.5 tab Documented by: [id number] Admin: 05/04/21 21:32 Dose: Not Given Documented by: [id number] Docusate Sodium (Docusate Sodium 100 Mg Cap) 100 mg PO BID STEPH Stop: 06/03/21 20:59 Last Admin: 05/06/21 08:16 Dose: 100 mg Documented by: [id number] Admin: 05/05/21 21:34 Dose: 100 mg Documented by: [id number] Admin: 05/05/21 11:31 Dose: 100 mg Documented by: [id number] Admin: 05/04/21 21:32 Dose: Not Given Documented by: [id number] Duloxetine HCl (Duloxetine Hcl 60 Mg Cap) 60 mg PO DAILY STEPH Stop: 06/04/21 08:59 Last Admin: 05/06/21 08:13 Dose: 60 mg Documented by: [id number] Admin: 05/05/21 11:33 Dose: 60 mg Documented by: [id number] Famotidine (Famotidine 20 Mg Tab) 20 mg PO BID STEPH Stop: 06/03/21 20:59 Last Admin: 05/06/21 08:14 Dose: 20 mg Documented by: [id number] Admin: 05/05/21 21:36 Dose: 20 mg Documented by: [id number] Admin: 05/05/21 11:34 Dose: 20 mg Documented by: [id number] Admin: 05/04/21 21:32 Dose: Not Given Documented by: [id number] Finasteride (Finasteride 5 Mg Tab) 5 mg PO QAM STEPH Stop: 06/04/21 08:59 Last Admin: 05/06/21 08:16 Dose: 5 mg Documented by: [id number] Admin: 05/05/21 11:33 Dose: 5 mg Documented by: [id number] Hydralazine HCl (Hydralazine Hcl 20 Mg/Ml Vial) 10 mg IV Q8 PRN PRN Reason: SBP>180 Stop: 06/03/21 20:07 Last Admin: 05/05/21 12:10 Dose: 10 mg Documented by: [id number] Insulin Aspart (Insulin Aspart 100 Units/Ml 3 Ml Pen) 0 units SC ACHS [facility] Stop: 06/03/21 20:59 Last Admin: 05/06/21 12:25 Dose: 5 units Documented by: [id number] Cosigned by: [id number] Admin: 05/06/21 08:18 Dose: 3 units Documented by: [id number] Cosigned by: [id number] Admin: 05/05/21 21:36 Dose: Not Given Documented by: [id number] Admin: 05/05/21 17:48 Dose: 4 units Documented by: [id number] Cosigned by: [id number] Admin: 05/05/21 12:10 Dose: Not Given Documented by: [id number] Admin: 05/05/21 08:53 Dose: Not Given Documented by: [id number] Admin: 05/04/21 21:32 Dose: Not Given Documented by: [id number] Insulin Human NPH (Insulin Human Nph) 10 units SC BIDM [facility] Stop: 06/03/21 20:59 Last Admin: 05/06/21 08:18 Dose: 10 units Documented by: [id number] Cosigned by: [id number] Admin: 05/05/21 17:23 Dose: 10 units Documented by: [id number] Cosigned by: [id number] Admin: 05/05/21 08:55 Dose: 10 units Documented by: [id number] Cosigned by: [id number] Admin: 05/04/21 21:40 Dose: Not Given Documented by: [id number] Levothyroxine Sodium (Levothyroxine Sodium 50 Mcg Tablet) [facility] 06/04/21 06:29 Last Admin: 05/06/21 05:58 Dose: 50 mcg Documented by: [id number] Admin: 05/05/21 05:03 Dose: Not Given Documented by: [id number] Lisinopril (Lisinopril 20 Mg Tab) 20 mg PO [facility] Stop: 06/04/21 08:59 Last Admin: 05/06/21 08:16 Dose: 20 mg Documented by: [id number] Admin: 05/05/21 11:32 Dose: 20 mg Documented by: [id number] Lisinopril (Lisinopril 5 Mg Tab) 5 mg PO [facility] Stop: 06/04/21 08:59 Last Admin: 05/06/21 08:15 Dose: 5 mg Documented by: [id number] Admin: 05/05/21 11:32 Dose: 5 mg Documented by: [id number] Magnesium Oxide (Magnesium Oxide 400 Mg Tab) 400 mg PO BID [facility] Stop: 06/03/21 20:59 Last Admin: 05/06/21 12:25 Dose: 400 mg Documented by: [id number] Admin: 05/05/21 21:35 Dose: 400 mg Documented by: [id number] Admin: 05/05/21 11:34 Dose: 400 mg Documented by: [id number] Admin: 05/04/21 21:33 Dose: Not Given Documented by: [id number] Ondansetron HCl (Ondansetron Inj 2 Mg/Ml 2 Ml Vial) 4 mg IV Q6H PRN PRN Reason: Nausea Stop: 06/03/21 20:07 Last Admin: 05/04/21 22:14 Dose: 4 mg Documented by: [id number] Pantoprazole Sodium (Pantoprazole 40 Mg Tab) [facility] [place] Stop: 06/04/21 08:59 Last Admin: 05/06/21 08:16 Dose: 40 mg Documented by: [id number] Admin: 05/05/21 11:33 Dose: 40 mg Documented by: [id number] Pregabalin (Pregabalin 100 Mg Cap) 100 mg PO TID [facility] Stop: 06/03/21 20:59 Last Admin: 05/06/21 14:26 Dose: 100 mg Documented by: [id number] Admin: 05/06/21 08:20 Dose: 100 mg Documented by: [id number] Admin: 05/05/21 21:34 Dose: 100 mg Documented by: [id number] Admin: 05/05/21 12:35 Dose: Not Given Documented by: [id number] Admin: 05/05/21 11:37 Dose: 100 mg Documented by: [id number] Admin: 05/04/21 21:33 Dose: Not Given Documented by: [id number] Tamsulosin HCl (Tamsulosin Hcl 0.4 Mg Cap) 0.4 mg PO QAM [facility] Stop: 06/04/21 08:59 Last Admin: 05/06/21 08:15 Dose: 0.4 mg Documented by: [id number] Admin: 05/05/21 11:33 Dose: 0.4 mg Documented by: [id number] Discontinued Medications Amlodipine Besylate (Amlodipine Besylate 5 Mg Tab) 2.5 mg PO NOW ONE Stop: 05/04/21 15:53 Last Admin: 05/04/21 16:33 Dose: 2.5 mg Documented by: [id number] Hydralazine HCl (Hydralazine Hcl 20 Mg/Ml Vial) 5 mg IV NOW ONE Stop: 05/04/21 18:17 Last Admin: 05/04/21 18:52 Dose: 5 mg Documented by: [id number] Hydralazine HCl (Hydralazine Hcl 20 Mg/Ml Vial) 5 mg IV Q8 PRN PRN Reason: SBP>180 Stop: 06/03/21 20:07 Last Admin: 05/04/21 22:11 Dose: 5 mg Documented by: [id number] Sodium Chloride (Nss 1000ml) 1,000 mls @ 125 mls/hr IV .Q8H STEPH Stop: 06/03/21 12:59 Last Infusion: 05/04/21 21:35 Dose: 0 mls/hr Documented by: [id number] Admin: 05/04/21 13:56 Dose: 125 mls/hr Documented by: [id number] Ioversol (Optiray 320 125ml) 120 ml IV ONCE ONE Stop: 05/04/21 13:37 Last Admin: 05/04/21 13:37 Dose: 120 ml Documented by: [id number] Ioversol (Optiray 320 100ml) 91 ml IV ONCE ONE Stop: 05/05/21 14:31 Last Admin: 05/05/21 14:31 Dose: 91 ml Documented by: [id number] Medical Decision Making Differential Diagnosis Differential diagnoses includes but is not limited to toxic, metabolic, infectious, traumatic, cardiac, neurologic, hematologic, psychiatric and inflammatory etiologies. Medical Records Attestation: I reviewed the patient's medical records. Home Medications Current Medication List: was personally reviewed by me Laboratory Data Attestation: I reviewed the patient's lab results. Result diagrams: 05/05/21 07:27 05/05/21 07:27 Lab Results 05/04/21 05/04/21 05/04/21 Range/Units 12:03 12:03 12:03 WBC 5.63 (4.8-10.8) K/uL RBC 4.94 (4.7-6.1) M/uL Hgb 15.2 (14.0-18.0) g/dL Hct 43.4 (42-52) % MCV 87.9 (80-100) fL MCH 30.8 (25-34) pg MCHC 35.0 (32-36) g/dL RDW Std Deviation 44.8 (36.4-46.3) fL RDW Coeff of Eben 13.9 (11.5-14.5) % Plt Count 97 L (130-400) K/uL MPV 12.3 H (7.4-10.4) fL PT 11.2 (9.0-12.0) Seconds INR 1.1 (0.9-1.1) APTT 29.1 (21.0-31.0) Seconds PTT Ratio 1.1 Sodium 138 (136-145) mmol/L Potassium 4.0 (3.5-5.1) mmol/L Chloride 107 (98-107) mmol/L Carbon Dioxide 27 (21-32) mmol/L Anion Gap 4.0 (3-11) BUN 18 (7-18) mg/dl Creatinine 1.45 H (0.6-1.4) mg/dl Est Cr Clr Drug Dosing 42.4 ml/min Est GFR ( Amer) 50.5 ml/min Est GFR (Non-Af Amer) 43.6 ml/min BUN/Creatinine Ratio 12.2 (10-20) Glucose 202 H (70-99) mg/dl POC Glucose (70-99) mg/dl Calcium 9.1 (8.5-10.1) mg/dl Magnesium 2.3 (1.8-2.4) mg/dl Total Bilirubin 0.7 (0.2-1) mg/dl AST 14 L (15-37) U/L ALT 26 (12-78) U/L Alkaline Phosphatase 87 (45-117) U/L Troponin I (0-0.045) ng/ml Total Protein 7.0 (6.4-8.2) gm/dl Albumin 3.3 L (3.4-5.0) gm/dl Globulin 3.7 (2.5-4.0) gm/dl Albumin/Globulin Ratio 0.9 (0.9-2) TSH (0.300-4.500) uIu/ml Urine Color Urine Appearance (Clear) Urine pH (4.5-7.5) Ur Specific [place] (1.000-1.030) Urine Protein (Negative) Urine Glucose (UA) (Negative) Urine Ketones (Negative) Urine Blood (Negative) Urine Nitrite (Negative) Urine Bilirubin (Negative) Urine Urobilinogen (Negative) Ur Leukocyte Esterase (Negative) Anaplasma Smear Lyme Disease IgG Ab (Negative) Lyme Disease IgM Ab (Negative) COVID-19 Eval Order SARS-CoV-2 (PCR) (Negative) 05/04/21 05/04/21 05/04/21 Range/Units 12:03 12:03 12:03 WBC (4.8-10.8) K/uL RBC (4.7-6.1) M/uL Hgb (14.0-18.0) g/dL Hct (42-52) % MCV (80-100) fL MCH (25-34) pg MCHC (32-36) g/dL RDW Std Deviation (36.4-46.3) fL RDW Coeff of Eben (11.5-14.5) % Plt Count (130-400) K/uL MPV (7.4-10.4) fL PT (9.0-12.0) Seconds INR (0.9-1.1) APTT (21.0-31.0) Seconds PTT Ratio Sodium (136-145) mmol/L Potassium (3.5-5.1) mmol/L Chloride (98-107) mmol/L Carbon Dioxide (21-32) mmol/L Anion Gap (3-11) BUN (7-18) mg/dl Creatinine (0.6-1.4) mg/dl Est Cr Clr Drug Dosing ml/min Est GFR ( Amer) ml/min Est GFR (Non-Af Amer) ml/min BUN/Creatinine Ratio (10-20) Glucose (70-99) mg/dl POC Glucose (70-99) mg/dl Calcium (8.5-10.1) mg/dl Magnesium (1.8-2.4) mg/dl Total Bilirubin (0.2-1) mg/dl AST (15-37) U/L ALT (12-78) U/L Alkaline Phosphatase (45-117) U/L Troponin I < 0.015 (0-0.045) ng/ml Total Protein (6.4-8.2) gm/dl Albumin (3.4-5.0) gm/dl Globulin (2.5-4.0) gm/dl Albumin/Globulin Ratio (0.9-2) TSH 2.990 (0.300-4.500) uIu/ml Urine Color Urine Appearance (Clear) Urine pH (4.5-7.5) Ur Specific [place] (1.000-1.030) Urine Protein (Negative) Urine Glucose (UA) (Negative) Urine Ketones (Negative) Urine Blood (Negative) Urine Nitrite (Negative) Urine Bilirubin (Negative) Urine Urobilinogen (Negative) Ur Leukocyte Esterase (Negative) Anaplasma Smear See Comment Lyme Disease IgG Ab (Negative) Lyme Disease IgM Ab (Negative) COVID-19 Eval Order SARS-CoV-2 (PCR) (Negative) 05/04/21 05/04/21 05/04/21 Range/Units 12:03 12:16 14:35 WBC (4.8-10.8) K/uL RBC (4.7-6.1) M/uL Hgb (14.0-18.0) g/dL Hct (42-52) % MCV (80-100) fL MCH (25-34) pg MCHC (32-36) g/dL RDW Std Deviation (36.4-46.3) fL RDW Coeff of Eben (11.5-14.5) % Plt Count (130-400) K/uL MPV (7.4-10.4) fL PT (9.0-12.0) Seconds INR (0.9-1.1) APTT (21.0-31.0) Seconds PTT Ratio Sodium (136-145) mmol/L Potassium (3.5-5.1) mmol/L Chloride (98-107) mmol/L Carbon Dioxide (21-32) mmol/L Anion Gap (3-11) BUN (7-18) mg/dl Creatinine (0.6-1.4) mg/dl Est Cr Clr Drug Dosing ml/min Est GFR ( Amer) ml/min Est GFR (Non-Af Amer) ml/min BUN/Creatinine Ratio (10-20) Glucose (70-99) mg/dl POC Glucose 189 H (70-99) mg/dl Calcium (8.5-10.1) mg/dl Magnesium (1.8-2.4) mg/dl Total Bilirubin (0.2-1) mg/dl AST (15-37) U/L ALT (12-78) U/L Alkaline Phosphatase (45-117) U/L Troponin I (0-0.045) ng/ml Total Protein (6.4-8.2) gm/dl Albumin (3.4-5.0) gm/dl Globulin (2.5-4.0) gm/dl Albumin/Globulin Ratio (0.9-2) TSH (0.300-4.500) uIu/ml Urine Color Yellow Urine Appearance Clear (Clear) Urine pH 7.5 (4.5-7.5) Ur Specific [place] 1.035 H (1.000-1.030) Urine Protein Negative (Negative) Urine Glucose (UA) Trace H (Negative) Urine Ketones Negative (Negative) Urine Blood Negative (Negative) Urine Nitrite Negative (Negative) Urine Bilirubin Negative (Negative) Urine Urobilinogen Negative (Negative) Ur Leukocyte Esterase Negative (Negative) Anaplasma Smear Lyme Disease IgG Ab Negative (Negative) Lyme Disease IgM Ab Negative (Negative) COVID-19 Eval Order SARS-CoV-2 (PCR) (Negative) 05/04/21 05/04/21 Range/Units 15:05 15:05 WBC (4.8-10.8) K/uL RBC (4.7-6.1) M/uL Hgb (14.0-18.0) g/dL Hct (42-52) % MCV (80-100) fL MCH (25-34) pg MCHC (32-36) g/dL RDW Std Deviation (36.4-46.3) fL RDW Coeff of Eben (11.5-14.5) % Plt Count (130-400) K/uL MPV (7.4-10.4) fL PT (9.0-12.0) Seconds INR (0.9-1.1) APTT (21.0-31.0) Seconds PTT Ratio Sodium (136-145) mmol/L Potassium (3.5-5.1) mmol/L Chloride (98-107) mmol/L Carbon Dioxide (21-32) mmol/L Anion Gap (3-11) BUN (7-18) mg/dl Creatinine (0.6-1.4) mg/dl Est Cr Clr Drug Dosing ml/min Est GFR ( Amer) ml/min Est GFR (Non-Af Amer) ml/min BUN/Creatinine Ratio (10-20) Glucose (70-99) mg/dl POC Glucose (70-99) mg/dl Calcium (8.5-10.1) mg/dl Magnesium (1.8-2.4) mg/dl Total Bilirubin (0.2-1) mg/dl AST (15-37) U/L ALT (12-78) U/L Alkaline Phosphatase (45-117) U/L Troponin I (0-0.045) ng/ml Total Protein (6.4-8.2) gm/dl Albumin (3.4-5.0) gm/dl Globulin (2.5-4.0) gm/dl Albumin/Globulin Ratio (0.9-2) TSH (0.300-4.500) uIu/ml Urine Color Urine Appearance (Clear) Urine pH (4.5-7.5) Ur Specific [place] (1.000-1.030) Urine Protein (Negative) Urine Glucose (UA) (Negative) Urine Ketones (Negative) Urine Blood (Negative) Urine Nitrite (Negative) Urine Bilirubin (Negative) Urine Urobilinogen (Negative) Ur Leukocyte Esterase (Negative) Anaplasma Smear Lyme Disease IgG Ab (Negative) Lyme Disease IgM Ab (Negative) COVID-19 Eval Order Covid19 at [facility] SARS-CoV-2 (PCR) NEGATIVE (Negative) Imaging Data Radiologist's Impression: Chest X-Ray 05/04/21 12:10 XR chest 1V portable HISTORY: Stroke symptoms. COMPARISON: Chest 10/17/2020. FINDINGS: No pneumothorax. No pleural fusions. There are low lung volumes and poststernotomy changes. The heart remains enlarged. There is mild central pulmonary basilar congestion without overt edema. This has slightly improved in the interval. No new focal lung consolidations to suggest pneumonia. IMPRESSION: Cardiomegaly with mild central pulmonary vascular congestion without overt edema. This has improved in the interval. ACT 112: Negative or not required by law. Electronically signed by: Guy Burdick M.D. 05/04/2021 12:[address] 05/04/21 12:10 CT head/brain wo con CLINICAL HISTORY: 85 years-old Male with Stroke Alert. Acutely altered mental status with strokelike symptoms TECHNIQUE: Multiple axial CT images of the head were obtained without contrast. A dose lowering technique was utilized adhering to the principles of ALARA. CT DOSE: 1219.50 mGycm COMPARISON: Head CT 09/14/2019 FINDINGS: No acute intracranial hemorrhage, midline shift, intracranial mass, hydrocephalus, territorial ischemia or abnormal extra-axial collection. Age- related involutional changes. White matter hypodensities suggestive of chronic microvascular ischemic disease. Chronic lacunar infarcts of the basal ganglia and left thalamus. Vascular calcifications. Encephalomalacia of the right temporal lobe is suggestive of a chronic infarct. The calvarium is intact. Moderate bilateral mastoid effusions. 3.8 cm polypoid mucosal thickening about the posterior left nasal turbinates and nasal aperture. Unremarkable soft tissues. Prior bilateral lens repair. IMPRESSION: Chronic findings as above without acute intracranial abnormality. ACT 112: Negative or not required by law. The above report was generated using voice recognition software. It may contain grammatical, syntax or spelling errors. Electronically signed by: Ranjeet Cisneros M.D. 05/04/2021 12:34 PM Head [facility]A 05/04/21 12:52 CT angio neck with con, CT angio head w con CLINICAL HISTORY: 85 years-old Male with ams. Acutely altered mental status with strokelike symptoms COMPARISON STUDY: Head CT of same day, CTA head and neck 09/14/2020 TECHNIQUE: Following the IV administration of 120 mL of Optiray, CT angiogram of the head and neck was performed from the aortic arch to the skull apex. Images are reviewed in the axial, sagittal, and coronal planes. 3-D MIPS images are cre ated and assessed. IV contrast was administered without complication. All measurements were calculated based on NASCET criteria. A dose lowering technique was utilized adhering to the principles of ALARA. CT DOSE: 562.60 mGy.cm FINDINGS: Motion degraded exam. Moderate atherosclerosis of the thoracic aortic arch. Patency of the innominate and imaged subclavian arteries. The common carotid arteries are widely patent. The visualized internal carotid arteries are patent. Mild to moderate multifocal luminal narrowing of the middle and anterior cerebral arteries redemonstrated. Unchanged focal area of high-grade stenosis involves the A2 segment of the left anterior cerebral artery with focal area of high-grade stenosis involving the A2 segment of the right anterior cerebral artery on image 159 with additional area of high-grade stenosis on image 203. Dominant right vertebral artery with unchanged moderate narrowing of the right proximal V1 segment. Developmentally diminutive left vertebral artery which terminates into the PICA. The bilateral vertebral arteries are patent. Patent basilar artery. Unchanged multifocal areas of high-grade stenosis are noted throughout the P1 and P2 segments of the posterior cerebral arteries (please see bookmarks). Cerebral venous sinuses are patent. There is no abnormal intracranial enhancement. Degenerative changes of the spine. Sternotomy changes. Right paratracheal adenopathy with lymph nodes measuring up to 11 mm, similar to comparison. Lung apices are clear. Unremarkable soft tissues. IMPRESSION: 1. Motion degraded exam. 2. 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 3. Moderate atherosclerosis of the carotid bulbs without significant stenosis. 4. Moderate stenosis of the proximal V1 segment of the right vertebral artery is unchanged. ACT 112: Negative or not required by law. The above report was generated using voice recognition software. It may contain grammatical, syntax or spelling errors. Electronically signed by: Ranjeet Cisneros M.D. 05/04/2021 2:01 PM Neck CTA 05/04/21 12:52 CT angio neck with con, CT angio head w con CLINICAL HISTORY: 85 years-old Male with ams. Acutely altered mental status with strokelike symptoms COMPARISON STUDY: Head CT of same day, CTA head and neck 09/14/2020 TECHNIQUE: Following the IV administration of 120 mL of Optiray, CT angiogram of the head and neck was performed from the aortic arch to the skull apex. Images are reviewed in the axial, sagittal, and coronal planes. 3-D MIPS images are created and assessed. IV contrast was administered without complication. All measurements were calculated based on NASCET criteria. A dose lowering technique was utilized adhering to the principles of ALARA. CT DOSE: 562.60 mGy.cm FINDINGS: Motion degraded exam. Moderate atherosclerosis of the thoracic aortic arch. Patency of the innominate and imaged subclavian arteries. The common carotid arteries are widely patent. The visualized internal carotid arteries are patent. Mild to moderate multifocal luminal narrowing of the middle and anterior cerebral arteries redemonstrated. Unchanged focal area of high-grade stenosis involves the A2 segment of the left anterior cerebral artery with focal area of high-grade stenosis involving the A2 segment of the right anterior cerebral artery on image 159 with additional area of high-grade stenosis on image 203. Dominant right vertebral artery with unchanged moderate narrowing of the right proximal V1 segment. Developmentally diminutive left vertebral artery which terminates into the PICA. The bilateral vertebral arteries are patent. Patent basilar artery. Unchanged multifocal areas of high-grade stenosis are noted throughout the P1 and P2 segments of the posterior cerebral arteries (please see bookmarks). Cerebral venous sinuses are patent. There is no abnormal intracranial enhancement. Degenerative changes of the spine. Sternotomy changes. Right paratracheal adenopathy with lymph nodes measuring up to 11 mm, similar to comparison. Lung apices are clear. Unremarkable soft tissues. IMPRESSION: 1. Motion degraded exam. 2. 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 3. Moderate atherosclerosis of the carotid bulbs without significant stenosis. 4. Moderate stenosis of the proximal V1 segment of the right vertebral artery is unchanged. ACT 112: Negative or not required by law. The above report was generated using voice recognition software. It may contain grammatical, syntax or spelling errors. Electronically signed by: Ranjeet Cisneros M.D. 05/04/2021 2:01 PM ECG Data Attestation: I personally reviewed and interpreted this ECG as follows: Indication: + altered mental status Rate (beats per minute): 6 Rhythm: + atrial fibrillation ECG Intervals/blocks: + Normal QRS and + Normal QT ECG [place]: + Normal ECG ST segments: + Nonspecific ST abnormalities MDM Narrative This is an 85-year-old male brought in by his son due to concern for abrupt onset of confusion. No other obvious findings to suggest CVA however son states patient did have a prior TIA. Patient is anticoagulated due to history of atrial fibrillation. Patient was afebrile and hemodynamically stable. Labs stable in appearance including his platelets as well as creatinine given his history of CKD. Patient sent for CT and CT angiography due to concern for possible occult ICH or CVA. These were reassuring also. Chronic appearing stenosis was noted however given patient's age and comorbidities I suspect this is unchanged. Patient was hypertensive here, although this did slowly begin to improve so additional antihypertensive medications were withheld. At time of discussion with the hospitalist for additional evaluation and management UA was still pending, however this did result without any evidence of infection or hematuria. Patient and son made aware of all results, son verbalized understanding and was in agreement with plan. No evidence of obvious infectious etiology, electrolyte abnormality, or dehydration. Is unclear if patient's hypertension could be contributing to this. No recent change in medications or other illness. Covid swab negative. Mild hyperglycemia was also noted. Stable H&H. An order was placed for continuous cardiac monitoring. The monitor shows a rate of _82_ with _ Atrial fibrillation_ rhythm. Impression & Plan Altered mental status, Thrombocytopenia, Hypertension, Chronic kidney disease (CKD) Discharge Plan Visit Data Chief Complaint: Stroke/CVA Symptoms Stated Complaint: BELIVES TO HAVE STROKE ED Provider: Tawnya Florez Discharge Problem: Altered mental status, Thrombocytopenia, Hypertension, Chronic kidney disease (CKD) Patient Disposition: Admitted As Inpatient Discharge Instructions Interventions: ED Discharge Assessment Last Done: 05/04/21 18:53 Discharge Problem: Altered mental status Qualifiers: Altered mental status type: unspecified Qualified Code(s): R41.82 - Altered mental status, unspecified Hypertension Qualifiers: Hypertension type: unspecified Qualified Code(s): I10 - Essential (primary) hypertension Chronic kidney disease (CKD) Qualifiers: Chronic kidney disease stage: unspecified stage Qualified Code(s): N18.9 - Chronic kidney disease, unspecified
[2021-05-04] MEDS ORDERED: SODIUM CHLORIDE 0.9% 1000ML 1,000 ML IV SCH (13:00)
[2021-05-04] MEDS ORDERED: OPTIRAY 320 125ml IV ONE (13:36)
--- NOTE | 2021-05-04 14:02 | CT Scan Report ---
CT angio neck with con, CT angio head w con CLINICAL HISTORY: 85 years-old Male with ams. Acutely altered mental status with strokelike sympto ms COMPARISON STUDY: Head CT of same day, CTA head and neck 09/14/2020 TECHNIQUE: Following the IV administration of 120 mL of Optiray, CT angiogram of the head and neck wa s performed from the aortic arch to the skull apex. Images are reviewed in the axial, sagittal, and c oronal planes. 3-D MIPS images are created and assessed. IV contrast was administered without complic ation. All measurements were calculated based on NASCET criteria. A dose lowering technique was util ized adhering to the principles of ALARA. CT DOSE: 562.60 mGy.cm FINDINGS: Motion degraded exam. Moderate atherosclerosis of the thoracic aortic arch. Patency of the innominate and imaged subclavian arteries. The common carotid arteries are widely patent. The visualized international flight attendant al carotid arteries are patent. Mild to moderate multifocal luminal narrowing of the middle and anter ior cerebral arteries redemonstrated. Unchanged focal area of high-grade stenosis involves the A2 seg ment of the left anterior cerebral artery with focal area of high-grade stenosis involving the A2 seg ment of the right anterior cerebral artery on image 159 with additional area of high-grade stenosis o n image 203. Dominant right vertebral artery with unchanged moderate narrowing of the right proximal V1 segment. D evelopmentally diminutive left vertebral artery which terminates into the PICA. The bilateral vertebr al arteries are patent. Patent basilar artery. Unchanged multifocal areas of high-grade stenosis are noted throughout the P1 and P2 segments of the posterior cerebral arteries (please see bookmarks). Ce rebral venous sinuses are patent. There is no abnormal intracranial enhancement. Degenerative changes of the spine. Sternotomy changes. Right paratracheal adenopathy with lymph nodes measuring up to 11 mm, similar to comparison. Lung apices are clear. Unremarkable soft tissues. IMPRESSION: 1. Motion degraded exam. 2. 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 3. Moderate atherosclerosis of the carotid bulbs without significant stenosis. 4. Moderate stenosis of the proximal V1 segment of the right vertebral artery is unchanged. ACT 112: Negative or not required by law. The above report was generated using voice recognition software. It may contain grammatical, syntax o r spelling errors. Electronically signed by: Ranjeet Cisneros M.D. 05/04/2021 2:01 PM
[2021-05-04 14:42] LABS: Appearance Urine Clear (Clear); Bilirubin Urine Negative (Negative); Blood Urine Negative (Negative); Color Urine Yellow; Glucose Urine UA Trace (Negative); Ketones Urine Negative (Negative); Leukocyte Esterase Urine Negative (Negative); Nitrite Urine Negative (Negative); Protein Urine Negative (Negative); Specific Gravity Urine 1.035 (1.000-1.030); Urobilinogen Urine Negative (Negative); pH Urine 7.5 (4.5-7.5)
--- NOTE | 2021-05-04 15:16 | History & Physical Report ---
Date of Service May 04, 2021 Assessment & Plan (1) Acute encephalopathy: Plan: Patient presents with acute onset of confusion. There is no evidence of infection although Covid is pending at the time of admission No evidence of metabolic derangements-he has chronic kidney disease and his creatinine is at baseline. No constipation. No acute changes on CT of head or CT angiogram of head and neck A TSH is pending Lyme is pending His nutritional status is fairly good He does have significant cerebrovascular disease as evidenced by multiple recurrent strokes and encephalomalacia as well as high-grade stenoses in the cerebral vasculature on CT. He also has a previous history earlier this year with an admission for a similar presentation which resolved with treatment of his hypertension Most likely secondary to hypertensive encephalopathy -Bring in on observation -No need for further brain imaging at this point unless there is no improvement- is highly unlikely that he had a new stroke while on apixaban -Treat hypertension as below -Check TSH, Lyme, anaplasmosis given low platelets although this is chronic -Follow-up on Covid test result -Continue other home medications as as before (2) HTN (hypertension): Plan: With significant elevated blood pressures on arrival in the 200s over 110s-with likely hypertensive encephalopathy as above Increase lisinopril to 20 mg daily for tomorrow Start amlodipine 2.5 mg p.o. once daily with first dose now Do not want to bring blood pressure down quickly in the setting of history of stroke and severe cerebrovascular disease Follow blood pressures closely (3) Atrial fibrillation: Plan: Permanent atrial fibrillation Rate controlled Continue apixaban for anticoagulation He is not on any AV chris blockade (4) BPH (benign prostatic hyperplasia): Plan: No acute issues Continue home finasteride, tamsulosin (5) Brainstem stroke: Plan: History of multiple previous strokes seen on CT Continue apixaban, aspirin, high intensity atorvastatin Blood pressure control (6) Coronary artery disease: Plan: Status post CABG No acute issues, troponin is negative, no chest pain, no ischemic changes on ECG Continue aspirin, statin He is not on a abul-[id number] reason (7) Diabetic neuropathy: Plan: Continue home pregabalin (8) DM type 2 (diabetes mellitus, type 2): Plan: Hemoglobin A1c 7.2% in 08/2020-very well controlled for age and comorbidities Reduce home NPH dose in case of poor p.o. intake in the setting of encephalopathy-we will give 10 units twice daily of NPH NovoLog with correction factor 1-30 and carb ratio 1:15 Check hemoglobin A1c in the morning Resume home NPH 7030 on discharge (9) GERD (gastroesophageal reflux disease): Plan: No acute issues Continue home famotidine (10) Hyperlipidemia: Plan: Continue high intensity statin (11) Hypothyroid: Plan: Check TSH-last TSH was normal 1 year ago Continue home levothyroxine (12) Stage III chronic kidney disease: Plan: Creatinine at baseline at 1.45 -Avoid nephrotoxins -renally dose meds when appropriate -follow BMP (13) Memory impairment: Plan: Mild Is on Sinemet low-dose as per neurology for parkinsonism-like cognitive impairment? (14) Thrombocytopenia: Plan: chronic no evidence of hepatosplenomegaly on abdominal imaging in the last several years B12 level was normal 2019 Monitor CBC occasionally (15) Depression: Plan: Continue home Cymbalta (16) DVT prophylaxis: Plan: Apixaban Disposition-bring in on observation, PT/OT consultations, expect discharge likely to home tomorrow if mental status has improved with improvement in blood pressure DNR/DNI as per discussion with patient and his son at the bedside History of Present Illness Chief Complaint: Confusion Primary Care Provider: Matt Comer MD This patient is an 85-year-old male with a history of atrial fibrillation on Eliquis, CAD status post CABG, DM 2, HTN, hypothyroidism, brainstem CVA, depression/anxiety, GERD, MCI, hyperlipidemia, CKD stage III, thrombocytopenia, and kidney stones, who presents to the ER after being found to be quite confused at home around lunchtime today. He lives with his son and [id number] who last saw him well last evening around 8 PM when he went to bed. The son and [id number] both left for work early this morning and when the son called home to check on his dad at 11 AM, the patient did not answer the phone. The son went home and found him quite confused standing in the hallway after he had moved all the furniture to the center of the room and could not find the bathroom which is right next to him. In the ER, the patient remained confused but did complain of some vertigo-like symptoms. He denied headache or chest pain, no shortness of breath, no nausea or abdominal pain. No difficulties with constipation or urination. His son did not notice slurred speech or weakness. The patient was able to ambulate around the house into the car. The son does note a slight facial droop on the right but I believe this was noted previously during hospital admission. A CT of the head was performed as part of a stroke alert-it did show chronic lacunar infarcts in the basal ganglia and left thalamus as well as encephalomalacia of the right temporal lobe suggestive of chronic infarct, moderate bilateral mastoid effusions, but no acute intracranial abnormality. A CTA of the head and neck was also performed which showed unchanged high-grade stenosis of left ALPHONSO and right ALPHONSO as well as moderate stenosis of the right vertebral artery and engine tester, but nothing acute. A chest x-ray was without evidence of infection. Laboratory work-up was fairly unremarkable except for chronic thrombocytopenia and creatinine 1.45 which is his baseline. A UA was negative for infection. He was afebrile, and hypertensive. A Covid-19 test was pending at the time of admission. He will be brought in on observation for acute confusion/encephalopathy, likely hypertensive encephalopathy, for further evaluation Allergies Allergy/AdvReac Type Severity Reaction Status Date / Time hydrocodone AdvReac Mild Dizziness, Verified 05/04/21 15:17 [From Panlor Nausea (hydrocodone-acetamin)] oxycodone AdvReac Mild NAUSEA/VOMI Verified 05/04/21 15:17 TING tramadol AdvReac Mild confusion Verified 05/04/21 15:17 Home Medications Medication Instructions Recorded Confirmed Type apixaban 2.5 mg tablet (Eliquis) 2.5 mg PO BID #180 tab 08/21/20 05/04/21 Rx atorvastatin 80 mg tablet 80 mg PO HS #90 tab 08/21/20 05/04/21 Rx finasteride 5 mg tablet 5 mg PO QAM #90 tab 08/21/20 05/04/21 Rx levothyroxine 50 mcg tablet 50 mcg PO QAM #90 tab 08/21/20 05/04/21 Rx tamsulosin 0.4 mg capsule 0.4 mg PO QAM #90 cap 08/21/20 05/04/21 Rx polyethylene glycol 3350 17 17 g PO DAILY PRN 09/14/20 05/04/21 History gram/dose oral powder (Miralax) triamcinolone acetonide 0.1 % 1 applic TOPICAL BID #30 g 10/02/20 05/04/21 Rx topical cream glycerin 2 drp OPHTHALMIC (EYE) BID 10/17/20 05/04/21 History blood sugar diagnostic (OneTouch #100 ea 10/18/20 03/28/21 Rx Ultra Blue Test Strip) lancets 33 gauge (OneTouch Delica #100 ea 10/18/20 03/28/21 Rx Plus Lancet) duloxetine 60 mg capsule,delayed 60 mg PO DAILY #90 cap 10/30/20 05/04/21 Rx release lisinopril 10 mg tablet 10 mg PO QAM 90 Days #90 tab 10/30/20 05/04/21 Rx omeprazole 20 mg capsule,delayed 40 mg PO QAM #180 cap 10/30/20 05/04/21 Rx release blood-glucose meter (OneTouch #1 ea 10/31/20 03/28/21 Rx Ultra2 Meter) magnesium oxide 400 mg PO BID #60 tab 11/20/20 05/04/21 Rx methylcellulose (with sugar) 2 2 g PO DAILY #454 g 01/19/21 05/04/21 Rx gram/19 gram oral powder (Fiber Therapy (methylcellulose-sugar)) insulin NPH-regular 70-30 U-100 20 unit SQ BID #15 ml 02/05/21 05/04/21 Rx insulin 100 unit/mL subcutaneous pen (Novolin 70-30 FlexPen U-100 Insulin) carbidopa 25 mg-levodopa 100 mg 0.5 tab PO TID #45 tab 02/06/21 05/04/21 Rx tablet (Sinemet) pen needle, diabetic 32 gauge x #100 ea 02/15/21 03/28/21 Rx 5/32" (BD Ultra-Fine Mary Carmen Pen Needle) famotidine 20 mg tablet 20 mg PO BID #60 tab 03/28/21 05/04/21 Rx docusate sodium 100 mg capsule 100 mg PO BID #60 cap 04/03/21 05/04/21 Rx hydrocortisone 2.5 % topical cream 1 applic [place] DAILY PRN #30 g 04/09/21 05/04/21 Rx with perineal applicator pregabalin 100 mg capsule 100 mg PO TID #90 cap 04/19/21 05/04/21 Rx aspirin 81 mg tablet,delayed 81 mg PO DAILY 05/04/21 05/04/21 History release diclofenac sodium 1 % topical gel See Rx Instructions TOP QID PRN 05/04/21 05/04/21 History Past Med/Surg History Medical History (Updated 05/04/21 @ 15:36 by Hazel Saravia MD) Abnormal tympanic membrane Left and Right Atrial fibrillation with rapid ventricular response Atrial flutter with rapid ventricular response Bilateral otitis externa BPH (benign prostatic hyperplasia) 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 Yates--per son pt does not have any deficits Coronary artery disease Depression Difficulty swallowing DM type 2 (diabetes mellitus, type 2) Encounter for pre-operative examination Foreign body in lip GERD (gastroesophageal reflux disease) Hearing deficit History of cellulitis HTN (hypertension) Hyperlipidemia Hypothyroid Jaw disease Kidney stones Memory impairment Myocardial Infarction 2003--follows with Dr. [place] Neuropathy On anticoagulant therapy eliquis daily Osteoarthritis Paroxysmal atrial flutter Productive cough Stage III chronic kidney disease Stroke x3 total---follows with Dr. Yates Thrombocytopenia Transient hypotension Upper respiratory infection UTI (urinary tract infection) Surgical History History of bilateral cataract extraction History of esophagogastroduodenoscopy (EGD) History of kidney surgery History of lithotripsy x2 History of lumbar laminectomy History of tooth extraction Hx of CABG 2003 @ [facility] [place] Family History Father Diabetes Coronary heart disease Mother Diabetes Coronary heart disease Myocardial infarction Sister Breast cancer Brother Coronary heart disease Son Family history of diabetes mellitus Family/Other Family history of diabetes mellitus grandson Other No family history of adverse response to anesthesia Denies family history of Ovarian cancer Prostate cancer Colorectal cancer Social History Smoking Status: Never smoker Second Hand Exposure: No; Hx Alcohol Use: No Hx Substance Use: No Preferred Language: Latvian Communication Ability: Effective Visual Impairment: No Limitations Hearing Ability: Use of Hearing Aid Associate Attorney Required: No Beliefs That Will Affect Care: None marital status: Current Living Situation: Family Current Living Situation Comment: son sherie milan and daughter in law current occupational status: retired current occupation: used to work in [employer] Feels Safe at Home: Yes Childhood Exposure to Second-Hand Smoke: Yes Dental Care, Regularly: No Physical Activity Frequency: Does not Exercise Seatbelt Use: always Sunscreen Use: No Assistive Devices: Denture - Upper Review of Systems Review of Systems: All systems reviewed & are unremarkable except as noted in HPI & below Physical Exam Constitutional: WD/WN, vitals as above Eyes: PERRL, conjunctivae normal, anicteric sclerae EOM intact bilaterally; no anisocoria and no nystagmus ENMT: external ear and nose normal, oropharynx normal Ears: + hearing impairment (Severe) Neck: trachea midline, no thyromegaly Respiratory: normal respiratory effort, lungs clear to auscultation Cardiovascular: Rate/Rhythm: regular rate and + irregularly irregular Vessels: dorsalis pedis pulses present Extremities: no calf tenderness and no edema Chest (Breasts): Chest: + abnormal inspection of chest (Midline sternotomy scar present) Gastrointestinal (Abdomen): normal bowel sounds, soft, nontender, no hepatosplenomegaly Musculoskeletal: Extremities: extremities normal to inspection; no cyanosis and no clubbing Skin: no rashes, warm and dry Neurologic: CN's II-XI intact bilaterally (Except very slight flattening of right nasolabial fold), moves all extremities and awake; no focal motor deficits Speech / Cognition: normal speech and no expressive aphasia Motor/Sensory: no tremor, no pronator drift and no sensory deficit (Decreased sensation to light touch in feet bilaterally) Psychiatric: Orientation: alert, oriented to person, oriented to place ("Hospital", but does not know the name) and cooperative Lymphatic: no lymphedema Results & Data Results & Data ([facility]) Vital Signs (Past 12 Hours) Vital Signs Temp Pulse Pulse Resp BP BP Pulse Ox 05/04/21 15:04 72 16 191/103 H 97 05/04/21 13:58 70 16 202/110 H 98 05/04/21 12:19 96 05/04/21 11:45 36.6 C 80 18 166/110 H 97 Laboratory Results 05/04/21 05/04/21 05/04/21 Range/Units 14:35 12:16 12:03 WBC (4.8-10.8) K/uL RBC (4.7-6.1) M/uL Hgb (14.0-18.0) g/dL Hct (42-52) % MCV (80-100) fL MCH (25-34) pg MCHC (32-36) g/dL RDW Std Deviation (36.4-46.3) fL RDW Coeff of Eben (11.5-14.5) % Plt Count (130-400) K/uL MPV (7.4-10.4) fL PT (9.0-12.0) Seconds INR (0.9-1.1) APTT (21.0-31.0) Seconds PTT Ratio Sodium (136-145) mmol/L Potassium (3.5-5.1) mmol/L Chloride (98-107) mmol/L Carbon Dioxide (21-32) mmol/L Anion Gap (3-11) BUN (7-18) mg/dl Creatinine (0.6-1.4) mg/dl Est Cr Clr Drug Dosing ml/min Est GFR ( Amer) ml/min Est GFR (Non-Af Amer) ml/min BUN/Creatinine Ratio (10-20) Glucose (70-99) mg/dl POC Glucose 189 H (70-99) mg/dl Calcium (8.5-10.1) mg/dl Magnesium (1.8-2.4) mg/dl Total Bilirubin (0.2-1) mg/dl AST (15-37) U/L ALT (12-78) U/L Alkaline Phosphatase (45-117) U/L Troponin I (0-0.045) ng/ml Total Protein (6.4-8.2) gm/dl Albumin (3.4-5.0) gm/dl Globulin (2.5-4.0) gm/dl Albumin/Globulin Ratio (0.9-2) Urine Color Yellow Urine Appearance Clear (Clear) Urine pH 7.5 (4.5-7.5) Ur Specific [place] 1.035 H (1.000-1.030) Urine Protein Negative (Negative) Urine Glucose (UA) Trace H (Negative) Urine Ketones Negative (Negative) Urine Blood Negative (Negative) Urine Nitrite Negative (Negative) Urine Bilirubin Negative (Negative) Urine Urobilinogen Negative (Negative) Ur Leukocyte Esterase Negative (Negative) Anaplasma Smear A. phagocytophilum DNA Lyme Disease IgG Ab Pending Lyme Disease IgM Ab Pending 05/04/21 05/04/21 05/04/21 Range/Units 12:03 12:03 12:03 WBC (4.8-10.8) K/uL RBC (4.7-6.1) M/uL Hgb (14.0-18.0) g/dL Hct (42-52) % MCV (80-100) fL MCH (25-34) pg MCHC (32-36) g/dL RDW Std Deviation (36.4-46.3) fL RDW Coeff of Eben (11.5-14.5) % Plt Count (130-400) K/uL MPV (7.4-10.4) fL PT (9.0-12.0) Seconds INR (0.9-1.1) APTT (21.0-31.0) Seconds PTT Ratio Sodium (136-145) mmol/L Potassium (3.5-5.1) mmol/L Chloride (98-107) mmol/L Carbon Dioxide (21-32) mmol/L Anion Gap (3-11) BUN (7-18) mg/dl Creatinine (0.6-1.4) mg/dl Est Cr Clr Drug Dosing ml/min Est GFR ( Amer) ml/min Est GFR (Non-Af Amer) ml/min BUN/Creatinine Ratio (10-20) Glucose (70-99) mg/dl POC Glucose (70-99) mg/dl Calcium (8.5-10.1) mg/dl Magnesium (1.8-2.4) mg/dl Total Bilirubin (0.2-1) mg/dl AST (15-37) U/L ALT (12-78) U/L Alkaline Phosphatase (45-117) U/L Troponin I < 0.015 (0-0.045) ng/ml Total Protein (6.4-8.2) gm/dl Albumin (3.4-5.0) gm/dl Globulin (2.5-4.0) gm/dl Albumin/Globulin Ratio (0.9-2) Urine Color Urine Appearance (Clear) Urine pH (4.5-7.5) Ur Specific [place] (1.000-1.030) Urine Protein (Negative) Urine Glucose (UA) (Negative) Urine Ketones (Negative) Urine Blood (Negative) Urine Nitrite (Negative) Urine Bilirubin (Negative) Urine Urobilinogen (Negative) Ur Leukocyte Esterase (Negative) Anaplasma Smear Pending A. phagocytophilum DNA Pending Lyme Disease IgG Ab Lyme Disease IgM Ab 05/04/21 05/04/21 05/04/21 Range/Units 12:03 12:03 12:03 WBC 5.63 (4.8-10.8) K/uL RBC 4.94 (4.7-6.1) M/uL Hgb 15.2 (14.0-18.0) g/dL Hct 43.4 (42-52) % MCV 87.9 (80-100) fL MCH 30.8 (25-34) pg MCHC 35.0 (32-36) g/dL RDW Std Deviation 44.8 (36.4-46.3) fL RDW Coeff of Eben 13.9 (11.5-14.5) % Plt Count 97 L (130-400) K/uL MPV 12.3 H (7.4-10.4) fL PT 11.2 (9.0-12.0) Seconds INR 1.1 (0.9-1.1) APTT 29.1 (21.0-31.0) Seconds PTT Ratio 1.1 Sodium 138 (136-145) mmol/L Potassium 4.0 (3.5-5.1) mmol/L Chloride 107 (98-107) mmol/L Carbon Dioxide 27 (21-32) mmol/L Anion Gap 4.0 (3-11) BUN 18 (7-18) mg/dl Creatinine 1.45 H (0.6-1.4) mg/dl Est Cr Clr Drug Dosing 42.4 ml/min Est GFR ( Amer) 50.5 ml/min Est GFR (Non-Af Amer) 43.6 ml/min BUN/Creatinine Ratio 12.2 (10-20) Glucose 202 H (70-99) mg/dl POC Glucose (70-99) mg/dl Calcium 9.1 (8.5-10.1) mg/dl Magnesium 2.3 (1.8-2.4) mg/dl Total Bilirubin 0.7 (0.2-1) mg/dl AST 14 L (15-37) U/L ALT 26 (12-78) U/L Alkaline Phosphatase 87 (45-117) U/L Troponin I (0-0.045) ng/ml Total Protein 7.0 (6.4-8.2) gm/dl Albumin 3.3 L (3.4-5.0) gm/dl Globulin 3.7 (2.5-4.0) gm/dl Albumin/Globulin Ratio 0.9 (0.9-2) Urine Color Urine Appearance (Clear) Urine pH (4.5-7.5) Ur Specific [place] (1.000-1.030) Urine Protein (Negative) Urine Glucose (UA) (Negative) Urine Ketones (Negative) Urine Blood (Negative) Urine Nitrite (Negative) Urine Bilirubin (Negative) Urine Urobilinogen (Negative) Ur Leukocyte Esterase (Negative) Anaplasma Smear A. phagocytophilum DNA Lyme Disease IgG Ab Lyme Disease IgM Ab Diagnostic Findings Chest X-Ray 05/04/21 12:10 XR chest 1V portable HISTORY: Stroke symptoms. COMPARISON: Chest 10/17/2020. FINDINGS: No pneumothorax. No pleural fusions. There are low lung volumes and poststernotomy changes. The heart remains enlarged. There is mild central pulmonary basilar congestion without overt edema. This has slightly improved in the interval. No new focal lung consolidations to suggest pneumonia. IMPRESSION: Cardiomegaly with mild central pulmonary vascular congestion without overt edema. This has improved in the interval. ACT 112: Negative or not required by law. Electronically signed by: Guy Burdick M.D. 05/04/2021 12:[address] 05/04/21 12:10 CT head/brain wo con CLINICAL HISTORY: 85 years-old Male with Stroke Alert. Acutely altered mental status with strokelike symptoms TECHNIQUE: Multiple axial CT images of the head were obtained without contrast. A dose lowering technique was utilized adhering to the principles of ALARA. CT DOSE: 1219.50 mGycm COMPARISON: Head CT 09/14/2019 FINDINGS: No acute intracranial hemorrhage, midline shift, intracranial mass, hydrocephalus, territorial ischemia or abnormal extra-axial collection. Age- related involutional changes. White matter hypodensities suggestive of chronic microvascular ischemic disease. Chronic lacunar infarcts of the basal ganglia and left thalamus. Vascular calcifications. Encephalomalacia of the right temporal lobe is suggestive of a chronic infarct. The calvarium is intact. Moderate bilateral mastoid effusions. 3.8 cm polypoid mucosal thickening about the posterior left nasal turbinates and nasal aperture. Unremarkable soft tissues. Prior bilateral lens repair. IMPRESSION: Chronic findings as above without acute intracranial abnormality. ACT 112: Negative or not required by law. The above report was generated using voice recognition software. It may contain grammatical, syntax or spelling errors. Electronically signed by: Ranjeet Cisneros M.D. 05/04/2021 12:34 PM Head CTA 05/04/21 12:52 CT angio neck with con, CT angio head w con CLINICAL HISTORY: 85 years-old Male with ams. Acutely altered mental status with strokelike symptoms COMPARISON STUDY: Head CT of same day, CTA head and neck 09/14/2020 TECHNIQUE: Following the IV administration of 120 mL of Optiray, CT angiogram of the head and neck was performed from the aortic arch to the skull apex. Images are reviewed in the axial, sagittal, and coronal planes. 3-D MIPS images are created and assessed. IV contrast was administered without complication. All measurements were calculated based on NASCET criteria. A dose lowering technique was utilized adhering to the principles of ALARA. CT DOSE: 562.60 mGy.cm FINDINGS: Motion degraded exam. Moderate atherosclerosis of the thoracic aortic arch. Patency of the innominate and imaged subclavian arteries. The common carotid arteries are widely patent. The visualized internal carotid arteries are patent. Mild to moderate multifocal luminal narrowing of the middle and anterior cerebral arteries redemonstrated. Unchanged focal area of high-grade stenosis involves the A2 segment of the left anterior cerebral artery with focal area of high-grade stenosis involving the A2 segment of the right anterior cerebral artery on image 159 with additional area of high-grade stenosis on image 203. Dominant right vertebral artery with unchanged moderate narrowing of the right proximal V1 segment. Developmentally diminutive left vertebral artery which terminates into the PICA. The bilateral vertebral arteries are patent. Patent basilar artery. Unchanged multifocal areas of high-grade stenosis are noted throughout the P1 and P2 segments of the posterior cerebral arteries (please see bookmarks). Cerebral venous sinuses are patent. There is no abnormal intracranial enhancement. Degenerative changes of the spine. Sternotomy changes. Right paratracheal adenopathy with lymph nodes measuring up to 11 mm, similar to comparison. Lung apices are clear. Unremarkable soft tissues. IMPRESSION: 1. Motion degraded exam. 2. 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 3. Moderate atherosclerosis of the carotid bulbs without significant stenosis. 4. Moderate stenosis of the proximal V1 segment of the right vertebral artery is unchanged. ACT 112: Negative or not required by law. The above report was generated using voice recognition software. It may contain grammatical, syntax or spelling errors. Electronically signed by: Ranjeet Cisneros M.D. 05/04/2021 2:01 PM Neck CTA 05/04/21 12:52 CT angio neck with con, CT angio head w con CLINICAL HISTORY: 85 years-old Male with ams. Acutely altered mental status with strokelike symptoms COMPARISON STUDY: Head CT of same day, CTA head and neck 09/14/2020 TECHNIQUE: Following the IV administration of 120 mL of Optiray, CT angiogram of the head and neck was performed from the aortic arch to the skull apex. Images are reviewed in the axial, sagittal, and coronal planes. 3-D MIPS images are created and assessed. IV contrast was administered without complication. All measurements were calculated based on NASCET criteria. A dose lowering technique was utilized adhering to the principles of ALARA. CT DOSE: 562.60 mGy.cm FINDINGS: Motion degraded exam. Moderate atherosclerosis of the thoracic aortic arch. Patency of the innominate and imaged subclavian arteries. The common carotid arteries are widely patent. The visualized internal carotid arteries are patent. Mild to moderate multifocal luminal narrowing of the middle and anterior cerebral arteries redemonstrated. Unchanged focal area of high-grade stenosis involves the A2 segment of the left anterior cerebral artery with focal area of high-grade stenosis involving the A2 segment of the right anterior cerebral artery on image 159 with additional area of high-grade stenosis on image 203. Dominant right vertebral artery with unchanged moderate narrowing of the right proximal V1 segment. Developmentally diminutive left vertebral artery which terminates into the PICA. The bilateral vertebral arteries are patent. Patent basilar artery. Unchanged multifocal areas of high-grade stenosis are noted throughout the P1 and P2 segments of the posterior cerebral arteries (please see bookmarks). Cerebral venous sinuses are patent. There is no abnormal intracranial enhancement. Degenerative changes of the spine. Sternotomy changes. Right paratracheal adenopathy with lymph nodes measuring up to 11 mm, similar to comparison. Lung apices are clear. Unremarkable soft tissues. IMPRESSION: 1. Motion degraded exam. 2. 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 3. Moderate atherosclerosis of the carotid bulbs without significant stenosis. 4. Moderate stenosis of the proximal V1 segment of the right vertebral artery is unchanged. ACT 112: Negative or not required by law. The above report was generated using voice recognition software. It may contain grammatical, syntax or spelling errors. Electronically signed by: Ranjeet Cisneros M.D. 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 Coronary artery disease I25.10 Diabetic neuropathy E11.40 DM type 2 (diabetes mellitus, type 2) E11.9; Z79.4 Diabetes mellitus complication status: without complication 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 use DVT prophylaxis Z29.9 GERD (gastroesophageal reflux disease) K21.9 Esophagitis presence: esophagitis presence not specified HTN (hypertension) I10 Hyperlipidemia E78.2 Hyperlipidemia type: mixed hyperlipidemia Hypothyroid E03.9 Hypothyroidism type: acquired Stage III chronic kidney disease N18.3 Memory impairment R41.3 Acute encephalopathy G93.40 Thrombocytopenia D69.6 (1) DM type 2 (diabetes mellitus, type 2) Diabetes mellitus complication status: without complication 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
[2021-05-04] MEDS ORDERED: amLODIPine BESYLATE 5 MG TAB PO ONE (15:52)
[2021-05-04 15:57] LABS: Lyme Ab IgG w/WB Rflx Negative (Negative); Lyme Ab IgM w/WB Rflx Negative (Negative)
[2021-05-04] MEDS ORDERED: hydrALAZINE HCL 20 MG/ML VIAL IV ONE (18:16)
[2021-05-04] MEDS ORDERED: GLUCOSE 40% GEL 15 GM TUBE PO PRN (20:08)
[2021-05-04] MEDS ORDERED: DEXTROSE 50% 50 ML SYRINGE IV PRN (20:08)
[2021-05-04] MEDS ORDERED: CARBOHYDRATES FOR HYPOGLYCEMIA PO PRN (20:08)
[2021-05-04] MEDS ORDERED: hydrALAZINE HCL 20 MG/ML VIAL IV PRN (20:08)
[2021-05-04] MEDS ORDERED: GLUCOSE 10 TABS/TUBE PO PRN (20:08)
[2021-05-04] MEDS ORDERED: POLYETHYLENE (MIRALAX) 17 GM PACK PO PRN (20:08)
[2021-05-04] MEDS ORDERED: GLUCAGON FOR INJ 1 MG VIAL SQ PRN (20:08)
[2021-05-04] MEDS ORDERED: ONDANSETRON INJ 2 MG/ML 2 ML VIAL IV PRN (20:08)
[2021-05-04] MEDS ORDERED: GLYCERIN OP SCH (21:00)
[2021-05-04] MEDS ORDERED: DICLOFENAC SOD 1% GEL 100 GM TUBE EXT PRN (21:00)
[2021-05-04] MEDS: ATORVASTATIN 40 MG TAB PO SCH (21:32)
[2021-05-04] MEDS: APIXABAN 2.5 MG TAB PO SCH (21:32)
[2021-05-04] MEDS: CARBIDOPA/LEVODOPA 25/100MG TAB PO SCH (21:32)
[2021-05-04] MEDS: DOCUSATE SODIUM 100 MG CAP PO SCH (21:32)
[2021-05-04] MEDS: FAMOTIDINE 20 MG TAB PO SCH (21:32)
[2021-05-04] MEDS: INSULIN ASPART 100 UNITS/ML 3 ML PEN SC SCH (21:32)
[2021-05-04] MEDS: PREGABALIN 100 MG CAP PO SCH (21:33)
[2021-05-04] MEDS: MAGNESIUM OXIDE 400 MG TAB PO SCH (21:33)
[2021-05-04] MEDS: INSULIN HUMAN NPH SC SCH (21:40)
[2021-05-05] MEDS: LEVOTHYROXINE SODIUM 50 MCG TABLET PO SCH (05:03)
--- NOTE | 2021-05-05 07:03 | Electrocardiogram Report ---
Test Reason : Blood Pressure : / mmHG Vent. Rate : 066 BPM Atrial Rate : 094 BPM P-R Int : 000 ms QRS Dur : 084 ms QT Int : 382 ms P-R-T Axes : 000 -10 065 degrees QTc Int : 400 ms Atrial fibrillation Abnormal ECG Confirmed by Matt Haq ([id number]) on 05/05/2021 7:03:08 AM Referred By: SELF Confirmed By:Favian Haq
[2021-05-05 07:52] LABS: Hematocrit (blood only) 44.8 % (42-52); Hemoglobin 15.9 g/dL (14.0-18.0); Mean Corpuscular Hemoglobin 30.7 pg (25-34); Mean Corpuscular Hgb Conc 35.5 g/dL (32-36); Mean Corpuscular Volume 86.5 fL (80-100); Mean Platelet Volume 12.6 fL (7.4-10.4); Platelet Count 99 K/uL (130-400); RDW Coefficient of Variation 13.7 % (11.5-14.5); RDW Standard Deviation 43.5 fL (36.4-46.3); Red Blood Count 5.18 M/uL (4.7-6.1)
[2021-05-05 07:58] LABS: BUN Creatinine Ratio 12.4 (10-20); Calcium 9.4 mg/dl (8.5-10.1); Est GFR (African American) 62.3 ml/min; Est GFR (Non-African American) 53.7 ml/min; Potassium 4.1 mmol/L (3.5-5.1)
[2021-05-05] MEDS ORDERED: Influenza Vaccine-High Dose (Fluzone-HD) PF 65+ 0.7 ML SYR IM ONE (08:00)
[2021-05-05] MEDS ORDERED: PNEUMOCOCCAL Polysaccharide Vaccine 25mcg/0.5mL vial/Syr IM ONE (08:00)
[2021-05-05 08:05] LABS: Estimated Average Glucose 174 mg/dl; Hemoglobin A1C 7.7 % (4.5-5.6)
[2021-05-05 08:16] LABS: Basophils # (auto) 0.02 K/uL (0-0.2); Basophils % (auto) 0.3 %; Eosinophils # (auto) 0.16 K/uL (0-0.5); Eosinophils % (auto) 2.3 %; Immature Granulocytes # (auto) 0.01 K/uL (0.00-0.02); Immature Granulocytes % (auto) 0.1 %; Lymphocytes # (auto) 1.55 K/uL (1.2-3.4); Lymphocytes % (auto) 22.1 %; Monocytes # (auto) 0.67 K/uL (0.11-0.59); Monocytes % (auto) 9.6 %; Neutrophils # (auto) 4.59 K/uL (1.4-6.5); Neutrophils % (auto) 65.6 %
--- NOTE | 2021-05-05 08:38 | Hospitalist Progress Note ---
Date of Service May 05, 2021 Assessment & Plan (1) Acute encephalopathy: Plan: Patient presents with acute onset of confusion. No acute changes on CT of head or CT angiogram of head and neck covid negative Lyme and anaplasmosis negative His nutritional status is fairly good He does have significant cerebrovascular disease as evidenced by multiple recurrent strokes and encephalomalacia as well as high-grade stenoses in the cerebral vasculature on CT. He also has a previous history earlier this year with an admission for a similar presentation which resolved with treatment of his hypertension Most likely secondary to hypertensive encephalopathy CT abd/pelvis, pending awaiting for eval for appendicitis with pain in RLQ -Treat hypertension as below -Continue other home medications as as before (2) HTN (hypertension): Plan: With significant elevated blood pressures on arrival in the 200s over 110s-with likely hypertensive encephalopathy as above Increased lisinopril to 20 mg daily for tomorrow Start amlodipine 5 mg p.o. once daily with first dose now Do not want to bring blood pressure down quickly in the setting of history of stroke and severe cerebrovascular disease Follow blood pressures closely (3) Atrial fibrillation: Plan: Permanent atrial fibrillation Rate controlled Continue apixaban for anticoagulation He is not on any AV chris blockade (4) BPH (benign prostatic hyperplasia): Plan: No acute issues Continue home finasteride, tamsulosin (5) Brainstem stroke: Plan: History of multiple previous strokes seen on CT Continue apixaban, aspirin, high intensity atorvastatin Blood pressure control (6) Coronary artery disease: Plan: Status post CABG No acute issues, troponin is negative, no chest pain, no ischemic changes on ECG Continue aspirin, statin He is not on a pegi-idpfbrc-ygcvasa reason (7) Diabetic neuropathy: Plan: Continue home pregabalin (8) DM type 2 (diabetes mellitus, type 2): Plan: Hemoglobin A1c 7.2% in 08/2020-very well controlled for age and comorbidities Reduce home NPH dose in case of poor p.o. intake in the setting of encephalopathy-we will give 10 units twice daily of NPH NovoLog with correction factor 1-30 and carb ratio 1:15 hemoglobin A1c 7.7 Resume home NPH 70/30 on discharge (9) GERD (gastroesophageal reflux disease): Plan: No acute issues Continue home famotidine (10) Hyperlipidemia: Plan: Continue high intensity statin (11) Hypothyroid: Plan: Check TSH-last TSH was normal 1 year ago Continue home levothyroxine (12) Stage III chronic kidney disease: Plan: Creatinine at baseline at 1.45 -Avoid nephrotoxins -renally dose meds when appropriate -follow BMP (13) Memory impairment: Plan: Mild Is on Sinemet low-dose as per neurology for parkinsonism-like cognitive impairment? (14) Thrombocytopenia: Plan: chronic no evidence of hepatosplenomegaly on abdominal imaging in the last several years B12 level was normal 2019 Monitor CBC occasionally (15) Depression: Plan: Continue home Cymbalta (16) DVT prophylaxis: Plan: Apixaban Disposition-bring in on observation, PT/OT consultations, expect discharge likely to home tomorrow if mental status has improved with improvement in blood pressure DNR/DNI as per discussion with patient and his son at the bedside Admission and Anticipated Discharge Date Admission Date: May 04, 2021 Subjective pt is angrily confused, tells me a different name then states he is just joking, does have some rlq reproducible pain on exam, but previously did not have source for encephalpathy Review of Systems Review of Systems: moderate distress and fatigue no headache, no visual changes no speech or swallowing issues no chest pain, pressure or palpitations no shortness of breath, cough or wheezes right sided abdominal pain, nausea or vomiting, diarrhea or constipation no dysuria, hematuria or frequency no focal joint pain or swelling no back pain, CVA tenderness or radicular pain no bruising, bleeding or rashes no focal signs of weakness or numbness or altered sensation pt is confused. Physical Exam Physical Exam: The patient appeared well nourished and normally developed. Vital signs as documented. Head exam is normocephalic atraumatic Neck is without JVD, thyromegaly, or carotid bruits. Lungs are clear to auscultation, no focal loss of breath sounds Cardiac exam, Rhythm is regular.. No murmurs, rubs or gallops. Abdominal exam reveals normal bowel sounds,tender reproducibly in right lower quadrant Extremities are nonedematous and both pedal pulses are present Neurologic exam is alert and oriented x2, no focal loss of strength or sensation Skin is without bruises or rashes, mar complexion to face Psychologically is without concerns for anxiety or depression Results & Data Results & Data ([facility]) Vital Signs (Past 12 Hours) Vital Signs Temp Pulse Pulse Resp BP BP Pulse Ox 10/09/21 07:49 98.2 F 77 20 167/102 H 95 05/05/21 03:06 97.7 F 84 17 167/98 H 96 05/04/21 23:22 79 18 165/81 H 97 05/04/21 22:20 61 05/04/21 22:15 74 16 165/81 H 97 PG Care Time/CCT Total # of Minutes Spent Total Time Spent with Patient: Total time spent is greater than 50% in coordination of care (as documented) at patient's floor/unit and/or counseling patient: Coding Level of Care Code 36141 Subseq Hosp Care Lvl 3 Diagnoses Acute encephalopathy G93.40 HTN (hypertension) I10 Atrial fibrillation I48.91 BPH (benign prostatic hyperplasia) N40.0 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9 (1) DM type 2 (diabetes mellitus, type 2) Diabetes mellitus complication status: without complication Diabetes mellitus halfway insulin use: with terminal computer operator use Qualified Code(s): E11.9 - Type 2 diabetes mellitus without complications; Z79.4 - halfway (current) use of insulin (2) Hyperlipidemia Hyperlipidemia type: mixed hyperlipidemia Qualified Code(s): E78.2 - Mixed hyperlipidemia (3) Hypothyroid Hypothyroidism type: acquired Qualified Code(s): E03.9 - Hypothyroidism, unsp ecified (4) GERD (gastroesophageal reflux disease) Esophagitis presence: esophagitis presence not specified Qualified Code(s): K21.9 - Gastro-esophageal reflux disease without esophagitis
[2021-05-05] MEDS: INSULIN ASPART 100 UNITS/ML 3 ML PEN SC SCH ×4 (08:53→21:36)
[2021-05-05] MEDS: INSULIN HUMAN NPH SC SCH ×2 (08:55→17:23)
[2021-05-05] MEDS ORDERED: amLODIPine BESYLATE 5 MG TAB PO SCH (09:00)
[2021-05-05] MEDS ORDERED: METHYLCELLULOSE POWDER 454 GM JAR PO SCH (09:00)
[2021-05-05] MEDS: CARBIDOPA/LEVODOPA 25/100MG TAB PO SCH ×3 (11:31→21:35)
[2021-05-05] MEDS: ASPIRIN 81 MG ECTAB PO SCH (11:31)
[2021-05-05] MEDS: DOCUSATE SODIUM 100 MG CAP PO SCH ×2 (11:31→21:34)
[2021-05-05] MEDS: ATORVASTATIN 40 MG TAB PO SCH (11:32)
[2021-05-05] MEDS: lisinopril 20 MG TAB PO SCH (11:32)
[2021-05-05] MEDS: lisinopril 5 MG TAB PO SCH (11:32)
[2021-05-05] MEDS: APIXABAN 2.5 MG TAB PO SCH ×2 (11:32→21:35)
[2021-05-05] MEDS: FINASTERIDE 5 MG TAB PO SCH (11:33)
[2021-05-05] MEDS: PANTOprazole 40 MG TAB PO SCH (11:33)
[2021-05-05] MEDS: TAMSULOSIN HCL 0.4 MG CAP PO SCH (11:33)
[2021-05-05] MEDS: DULoxetine HCL 60 MG CAP PO SCH (11:33)
[2021-05-05] MEDS: FAMOTIDINE 20 MG TAB PO SCH ×2 (11:34→21:36)
[2021-05-05] MEDS: CALCIUM POLYCARBOPHIL 625MG TAB PO SCH (11:34)
[2021-05-05] MEDS: MAGNESIUM OXIDE 400 MG TAB PO SCH ×2 (11:34→21:35)
[2021-05-05] MEDS: PREGABALIN 100 MG CAP PO SCH ×3 (11:37→21:34)
[2021-05-05] MEDS: hydrALAZINE HCL 20 MG/ML VIAL IV PRN (12:10)
[2021-05-05] MEDS ORDERED: OPTIRAY 320 100ml IV ONE (14:30)
--- NOTE | 2021-05-05 18:04 | CT Scan Report ---
ABDOMEN AND PELVIS CT WITH IV AND ORAL CONTRAST CT DOSE: 1199.87 mGycm HISTORY: Acute right lower quadrant abdominal pain right lower quadant pain, confusion without cause TECHNIQUE: Multiaxial CT images of the abdomen and pelvis were performed following the IV administrat ion of 91 cc of Optiray and oral contrast. A dose lowering technique was utilized adhering to the pr inciples of THEO. COMPARISON STUDY: CT abdomen and pelvis 03/07/2020 FINDINGS: Cardiomegaly with coronary artery and mitral annular calcifications. Mild subsegmental biba silar atelectasis. Study is degraded by respiratory motion artifact and upper extremity positioning. Unremarkable spleen and adrenal glands. Moderately atrophic pancreas. Cholecystectomy. Patent portal vein. Multifocal cortical scarring of the right kidney. Bilateral renal cysts measure up to 4.0 cm on the l eft. There are least 3 nonobstructing calculi of the left kidney measuring up to 4-5 mm. No ureteral calculi or hydronephrosis. Prostamegaly. Moderate bladder distention with wall thickening and trabecu lation. Small inguinal hernias. Atherosclerosis of the abdominal aorta without aneurysm. No adenopath y. Small to moderate hiatal hernia. Mild rectal fecal retention. Colonic diverticulosis. Normal appendix . No ascites or mesenteric inflammation. Tiny fat filled periumbilical hernia. Unremarkable soft tiss ues. Degenerative changes of the spine, pelvis and hips. No suspicious bone lesion. IMPRESSION: 1. No bowel obstruction or bowel wall thickening. Normal appendix. 2. Colonic diverticulosis. 3. Nonobstructing left nephrolithiasis. 4. Small to moderate hiatal hernia. 5. Prostamegaly with evidence of chronic bladder outlet obstruction. 6. Additional findings as above. ACT 112: Negative or not required by law. The above report was generated using voice recognition software. It may contain grammatical, syntax o r spelling errors. Electronically signed by: Ranjeet Cisneros M.D. 05/05/2021 6:03 PM
[2021-05-06] MEDS: LEVOTHYROXINE SODIUM 50 MCG TABLET PO SCH (05:58)
[2021-05-06] MEDS: APIXABAN 2.5 MG TAB PO SCH ×2 (08:13→21:40)
[2021-05-06] MEDS: DULoxetine HCL 60 MG CAP PO SCH (08:13)
[2021-05-06] MEDS: CALCIUM POLYCARBOPHIL 625MG TAB PO SCH (08:14)
[2021-05-06] MEDS: CARBIDOPA/LEVODOPA 25/100MG TAB PO SCH ×3 (08:14→21:40)
[2021-05-06] MEDS: FAMOTIDINE 20 MG TAB PO SCH ×2 (08:14→21:38)
[2021-05-06] MEDS: TAMSULOSIN HCL 0.4 MG CAP PO SCH (08:15)
[2021-05-06] MEDS: ASPIRIN 81 MG ECTAB PO SCH (08:15)
[2021-05-06] MEDS: lisinopril 5 MG TAB PO SCH (08:15)
[2021-05-06] MEDS: lisinopril 20 MG TAB PO SCH (08:16)
[2021-05-06] MEDS: DOCUSATE SODIUM 100 MG CAP PO SCH ×2 (08:16→21:40)
[2021-05-06] MEDS: PANTOprazole 40 MG TAB PO SCH (08:16)
[2021-05-06] MEDS: FINASTERIDE 5 MG TAB PO SCH (08:16)
[2021-05-06] MEDS: INSULIN HUMAN NPH SC SCH ×2 (08:18→17:17)
[2021-05-06] MEDS: INSULIN ASPART 100 UNITS/ML 3 ML PEN SC SCH ×4 (08:18→21:41)
[2021-05-06] MEDS: PREGABALIN 100 MG CAP PO SCH ×3 (08:20→21:43)
[2021-05-06] MEDS: MAGNESIUM OXIDE 400 MG TAB PO SCH ×2 (12:25→21:38)
--- NOTE | 2021-05-06 15:40 | Hospitalist Progress Note ---
Date of Service May 06, 2021 Assessment & Plan (1) Acute encephalopathy: Plan: Patient presents with acute onset of confusion. No acute changes on CT of head or CT angiogram of head and neck covid negative Lyme and anaplasmosis negative CT abd/pelvis, negative for intra-abdominal pathology specifically negative for appendicitis He does have significant cerebrovascular disease as evidenced by multiple recurrent strokes and encephalomalacia as well as high-grade stenoses in the cerebral vasculature on CT. He also has a previous history earlier this year with an admission for a similar presentation which resolved with treatment of his hypertension Most likely secondary to hypertensive encephalopathy/possible TIA We will change aspirin to clopidogrel continue atorvastatin 80 can consider the diagnosis is encephalopathy from hypertension with possible TIA (2) HTN (hypertension): Plan: With significant elevated blood pressures on arrival in the 200s over 110s-with likely hypertensive encephalopathy Increased lisinopril to 20 mg daily with good blood pressure response (3) Atrial fibrillation: Plan: Permanent atrial fibrillation Rate controlled Continue apixaban for anticoagulation He is not on any AV chris blockade (4) BPH (benign prostatic hyperplasia): Plan: No acute issues Continue home finasteride, tamsulosin (5) 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 intake in the setting of encephalopat hy-we will give 10 units twice daily of NPH NovoLog with correction factor 1-30 and carb ratio 1:15 hemoglobin A1c 7.7 Resume home NPH 70/30 on discharge (9) GERD (gastroesophageal reflux disease): Plan: No acute issues Continue home famotidine (10) Hyperlipidemia: Plan: Continue high intensity statin (11) Hypothyroid: Plan: Check TSH-last TSH was normal 1 year ago Continue home levothyroxine (12) Stage III chronic kidney disease: Plan: Creatinine at baseline at 1.45 -Avoid nephrotoxins -renally dose meds when appropriate -follow BMP (13) Memory impairment: Plan: Mild Is on Sinemet low-dose 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 Made full admission continue to evaluate for need for rehab. Son updated DNR/DNI as per discussion with patient and his son at the bedside Admission and Anticipated Discharge Date Admission Date: May 04, 2021 Subjective Patient seems to be much more improved. Infectious etiologies ruled out in the abdomen by CT scan. Uncertain with the be this could be a TIA subsequently we will change his antiplatelets from baby aspirin to clopidogrel is already on max dose of statins. His family was updated. He did do poorly with physical therapy on the ninth with a 6 clicks score of 15 with 50% decrement of function Review of Systems Review of Systems: Mild distress and fatigue seemingly having some memory issues no headache, no visual changes no speech or swallowing issues no chest pain, pressure or palpitations no shortness of breath, cough or wheezes right sided abdominal pain, nausea or vomiting, diarrhea or constipation no dysuria, hematuria or frequency no focal joint pain or swelling no back pain, CVA tenderness or radicular pain no bruising, bleeding or rashes no focal signs of weakness or numbness or altered sensation pt is much less confused. Physical Exam Physical Exam: The patient appeared well nourished and normally developed. Vital signs as documented. Head exam is normocephalic atraumatic Neck is without JVD, thyromegaly, or carotid bruits. Lungs are clear to auscultation, no focal loss of breath sounds Cardiac exam, Rhythm is regular.. No murmurs, rubs or gallops. Abdominal exam reveals normal bowel sounds,tender reproducibly in right lower quadrant Extremities are nonedematous and both pedal pulses are present Neurologic exam is alert and remains oriented x2, no focal loss of strength or sensation Skin is without bruises or rashes, mar complexion to face Psychologically is without concerns for anxiety or depression Results & Data Results & Data ([facility]) Vital Signs (Past 12 Hours) Vital Signs Temp Pulse Resp BP Pulse Ox 05/06/21 11:46 97.5 F L 73 18 103/67 95 05/06/21 08:00 97.9 F 69 18 145/81 H 98 PG Care Time/CCT Total # of Minutes Spent Total Time Spent with Patient: Total time spent is greater than 50% in coordination of care (as documented) at patient's floor/unit and/or counseling patient: Coding Level of Care Code 67822 Subseq Hosp Care Lvl 2 Diagnoses Acute encephalopathy G93.40 HTN (hypertension) I10 Atrial fibrillation I48.91 BPH (benign prostatic hyperplasia) N40.0 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 Coronary artery disease I25.10 Diabetic neuropathy E11.40 DM type 2 (diabetes mellitus, type 2) E11.9; Z79.4 Diabetes mellitus custodial insulin use: with custodial use Diabetes mellitus complication status: without complication GERD (gastroesophageal reflux disease) K21.9 Esophagitis presence: esophagitis presence not specified Hyperlipidemia E78.2 Hyperlipidemia type: mixed hyperlipidemia Hypothyroid E03.9 Hypothyroidism type: acquired Stage III chronic kidney disease N18.3 Memory impairment R41.3 Thrombocytopenia D69.6 Depression F32.9 DVT prophylaxis Z29.9 (1) DM type 2 (diabetes mellitus, type 2) Diabetes mellitus custodial insulin use: with custodial use Diabetes mellitus complication status: without complication Qualified Code(s): E11.9 - Type 2 diabetes mellitus without complications; Z79.4 - alf (current) use of insulin (2) GERD (gastroesophageal reflux disease) Esophagitis presence: esophagitis presence not specified Qualified Code(s): K21.9 - Gastro-esophageal reflux disease without esophagitis (3) Hyperlipidemia Hyperlipidemia type: mixed hyperlipidemia Qualified Code(s): E78.2 - Mixed hyperlipidemia (4) Hypothyroid Hypothyroidism type: acquired Qualified Code(s): E03.9 - Hypothyroidism, unspecified
[2021-05-06] MEDS: ATORVASTATIN 40 MG TAB PO SCH (21:40)
[2021-05-07] MEDS: LEVOTHYROXINE SODIUM 50 MCG TABLET PO SCH (06:00)
[2021-05-07] MEDS: DOCUSATE SODIUM 100 MG CAP PO SCH ×2 (09:14→21:42)
[2021-05-07] MEDS: PANTOprazole 40 MG TAB PO SCH (09:14)
[2021-05-07] MEDS: CARBIDOPA/LEVODOPA 25/100MG TAB PO SCH ×3 (09:14→21:43)
[2021-05-07] MEDS: APIXABAN 2.5 MG TAB PO SCH ×2 (09:15→21:42)
[2021-05-07] MEDS: DULoxetine HCL 60 MG CAP PO SCH (09:15)
[2021-05-07] MEDS: lisinopril 20 MG TAB PO SCH (09:15)
[2021-05-07] MEDS: lisinopril 5 MG TAB PO SCH (09:15)
[2021-05-07] MEDS: FAMOTIDINE 20 MG TAB PO SCH ×2 (09:15→21:42)
[2021-05-07] MEDS: MAGNESIUM OXIDE 400 MG TAB PO SCH ×2 (09:15→21:41)
[2021-05-07] MEDS: FINASTERIDE 5 MG TAB PO SCH (09:15)
[2021-05-07] MEDS: CLOPIDOGREL BISULFATE 75 MG TAB PO SCH (09:16)
[2021-05-07] MEDS: CALCIUM POLYCARBOPHIL 625MG TAB PO SCH (09:16)
[2021-05-07] MEDS: TAMSULOSIN HCL 0.4 MG CAP PO SCH (09:16)
[2021-05-07] MEDS: INSULIN ASPART 100 UNITS/ML 3 ML PEN SC SCH ×4 (09:21→21:44)
[2021-05-07] MEDS: INSULIN HUMAN NPH SC SCH ×2 (09:22→17:20)
[2021-05-07] MEDS: PREGABALIN 100 MG CAP PO SCH ×3 (09:53→21:42)
[2021-05-07] MEDS: ACETAMINOPHEN 325 MG TAB PO PRN (14:30)
--- NOTE | 2021-05-07 14:58 | Hospitalist Progress Note ---
Date of Service May 07, 2021 Assessment & Plan (1) Acute encephalopathy: Plan: - Patient presents with acute onset of confusion. No acute changes on CT of head or CT angiogram of head and neck - Covid negative - Lyme and anaplasmosis negative - CT abd/pelvis, negative for intra-abdominal pathology specifically negative for appendicitis - He does have significant cerebrovascular disease as evidenced by multiple recurrent strokes and encephalomalacia as well as high-grade stenoses in the cerebral vasculature on CT. - He also has a previous history earlier this year with an admission for a similar presentation which resolved with treatment of his hypertension - Most likely secondary to hypertensive encephalopathy/possible TIA? Patient was driving up to a weak ago and talking with family states he doesn't yet sound his normal self - ASA was changed to clopidogrel; continue atorvastatin 80 can consider the diagnosis is encephalopathy from hypertension with possible TIA (2) HTN (hypertension): Plan: - With significant elevated blood pressures on arrival in the 200s over 110s- with likely hypertensive encephalopathy - Increased lisinopril to 20 mg daily with good blood pressure response but having some soft pressures - also stated some dizziness with standing - Can check orthostatics in AM and monitor (3) Atrial fibrillation: Plan: - Permanent atrial fibrillation; Rate controlled - Continue apixaban for anticoagulation - He is not on any AV chris blockade (4) BPH (benign prostatic hyperplasia): Plan: - No acute issues - Continue home finasteride, tamsulosin (5) Brainstem stroke: Plan: - History of multiple previous strokes seen on CT - Continue apixaban, adding clopidogrel in place of aspirin, high intensity atorvastatin - Blood pressure control (6) Coronary artery disease: Plan: - Status post CABG - No acute issues, troponin is negative, no chest pain, no ischemic changes on ECG - Continue Plavix and statin - He is not on a esvi-owhslbc-gfwmvuh reason (7) Diabetic neuropathy: Plan: - Continue home pregabalin (8) DM type 2 (diabetes mellitus, type 2): Plan: - Hemoglobin A1c 7.2% in 08/2020-very well controlled for age and comorbidities (9) GERD (gastroesophageal reflux disease): Plan: - No acute issues - Continue home famotidine (10) Hyperlipidemia: Plan: - Continue high intensity statin (11) Hypothyroid: Plan: - TSH is WNL - Continue home levothyroxine (12) Stage III chronic kidney disease: Plan: - Creatinine at baseline at 1.45 -Avoid nephrotoxins; renally dose meds when appropriate - Follow BMP (13) Memory impairment: Plan: - Mild - 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 Said he had some dizziness this AM but that resolved. Feels that he is a bit weak but overall feels his normal self. Had a softer BP this afternoon and will reduce from Lisinopril 25 mg to 20 and monitor. He is interested in rehab. Review of Systems Review of Systems: REVIEW OF SYSTEMS General/Constitutional: +fatigue; Denies fever/chills Cardiovascular: Denies chest pain, palpitations, edema Respiratory: Denies cough, sputum, SOB, wheezing, orthopnea GI: Denies nausea, vomiting, abdominal pain : Denies dysuria Musculoskeletal: Denies joint/muscle aches Neurologic: + Dizziness this AM with standing up Physical Exam Physical Exam: PHYSICAL EXAM General Appearance: WDWN in NAD HEENT: Head is normocephalic/atraumatic; Hearing grossly intact Neck: Supple; Trachea midline; Neg JVD Heart: RRR Lungs: CTA in all lung lange bilaterally; Respirations unlabored; Neg accessory muscle use Abdomen: Soft, non-tender, non-distended; Positive BS x 4 quadrants Extremities: Neg cyanosis or edema Neurological: Speech clear but does sound like he is talking "through his teeth"; Gross motor/sensory function intact; Neg focal neurologic deficits Psychiatric: Appropriate mood/affect Skin: Normal Color; Warm/Dry Results & Data Results & Data ([facility]) Vital Signs (Past 12 Hours) Vital Signs Temp Pulse Pulse Resp BP BP Pulse Ox 05/07/21 11:44 36.3 C L 93 H 18 97/59 L 95 05/07/21 07:38 36.4 C L 73 18 147/88 H 93 05/07/21 07:11 65 05/07/21 05:16 73 16 101/68 94 05/07/21 05:00 36.6 C 72 20 145/101 H 94 PG Care Time/CCT Total # of Minutes Spent Total Time Spent with Patient: Total time spent is greater than 50% in coordination of care (as documented) at patient's floor/unit and/or counseling patient: Coding Level of Care Code 70248 Subseq Hosp Care Lvl 3 Diagnoses Acute encephalopathy G93.40 HTN (hypertension) I10 Atrial fibrillation I48.91 BPH (benign prostatic hyperplasia) N40.0 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 Coronary artery disease I25.10 Diabetic neuropathy E11.40 DM type 2 (diabetes mellitus, type 2) E11.9; Z79.4 Diabetes mellitus complication status: without complication Diabetes mellitus 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 insulin use: with 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 use GERD (gastroesophageal reflux disease) K21.9 Esophagitis presence: esophagitis presence not specified Hyperlipidemia E78.2 Hyperlipidemia type: mixed hyperlipidemia Hypothyroid E03.9 Hypothyroidism type: acquired Stage III chronic kidney disease N18.3 Memory impairment R41.3 Thrombocytopenia D69.6 Depression F32.9 DVT prophylaxis Z29.9 (1) DM type 2 (diabetes mellitus, type 2) Diabetes mellitus complication status: without complication Diabetes mellitus 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 insulin use: with intermediate manager use Qualified Code(s): E11.9 - Type 2 diabetes mellitus without complications; Z79.4 - intermediate manager (current) use of insulin (2) Hyperlipidemia Hyperlipidemia type: mixed hyperlipidemia Qualified Code(s): E78.2 - Mixed hyperlipidemia (3) Hypothyroid Hypothyroidism type: acquired Qualified Code(s): E03.9 - Hypothyroidism, unspecified (4) GERD (gastroesophageal reflux disease) Esophagitis presence: esophagitis presence not specified Qualified Code(s): K21.9 - Gastro-esophageal reflux disease without esophagitis
[2021-05-07] MEDS ORDERED: KETOROLAC TROMETHAMINE 15 MG/ML VIAL IV ONE (16:26)
[2021-05-07] MEDS: ATORVASTATIN 40 MG TAB PO SCH (21:43)
[2021-05-08] MEDS: LEVOTHYROXINE SODIUM 50 MCG TABLET PO SCH (06:18)
[2021-05-08 06:41] LABS: BUN Creatinine Ratio 15.7 (10-20); Blood Urea Nitrogen 29 mg/dl (7-18); C Reactive Protein < 0.29 mg/dl (0-0.29); Carbon Dioxide 28 mmol/L (21-32); Chloride 106 mmol/L (98-107); Creatinine Clr Calc Pharmacy 33.8 ml/min; Est GFR (African American) 38.1 ml/min; Est GFR (Non-African American) 32.9 ml/min; Glucose 89 mg/dl (70-99); Hematocrit (blood only) 44.8 % (42-52); Hemoglobin 15.4 g/dL (14.0-18.0); Mean Corpuscular Hemoglobin 30.4 pg (25-34); Mean Corpuscular Hgb Conc 34.4 g/dL (32-36); Mean Corpuscular Volume 88.4 fL (80-100); Mean Platelet Volume 12.8 fL (7.4-10.4); Platelet Count 87 K/uL (130-400); Potassium 4.4 mmol/L (3.5-5.1); RDW Coefficient of Variation 13.6 % (11.5-14.5); Red Blood Count 5.07 M/uL (4.7-6.1); Sodium 139 mmol/L (136-145); White Blood Count 6.07 K/uL (4.8-10.8)
[2021-05-08] MEDS ORDERED: SODIUM CHLORIDE 0.9% 1000ML 1,000 ML IV SCH (08:00)
[2021-05-08] MEDS: CARBIDOPA/LEVODOPA 25/100MG TAB PO SCH ×3 (08:21→21:10)
[2021-05-08] MEDS: APIXABAN 2.5 MG TAB PO SCH ×2 (08:22→21:09)
[2021-05-08] MEDS: FAMOTIDINE 20 MG TAB PO SCH ×2 (08:22→21:07)
[2021-05-08] MEDS: DULoxetine HCL 60 MG CAP PO SCH (08:23)
[2021-05-08] MEDS: MAGNESIUM OXIDE 400 MG TAB PO SCH ×2 (08:23→21:09)
[2021-05-08] MEDS: PANTOprazole 40 MG TAB PO SCH (08:24)
[2021-05-08] MEDS: CALCIUM POLYCARBOPHIL 625MG TAB PO SCH (08:24)
[2021-05-08] MEDS: FINASTERIDE 5 MG TAB PO SCH (08:24)
[2021-05-08] MEDS: CLOPIDOGREL BISULFATE 75 MG TAB PO SCH (08:24)
[2021-05-08] MEDS: TAMSULOSIN HCL 0.4 MG CAP PO SCH (08:25)
[2021-05-08] MEDS: lisinopril 20 MG TAB PO SCH (08:25)
[2021-05-08] MEDS: INSULIN HUMAN NPH SC SCH ×2 (08:27→17:31)
[2021-05-08] MEDS: INSULIN ASPART 100 UNITS/ML 3 ML PEN SC SCH ×4 (08:27→21:11)
[2021-05-08] MEDS: PREGABALIN 100 MG CAP PO SCH ×3 (08:28→21:09)
[2021-05-08] MEDS: DOCUSATE SODIUM 100 MG CAP PO SCH ×2 (08:29→21:09)
--- NOTE | 2021-05-08 09:57 | Hospitalist Progress Note ---
Date of Service May 08, 2021 Assessment & Plan (1) Acute encephalopathy: Plan: - Patient presents with acute onset of confusion. No acute changes on CT of head or CT angiogram of head and neck - Covid negative - Lyme and anaplasmosis negative - CT abd/pelvis, negative for intra-abdominal pathology specifically negative for appendicitis - RLQ is completely resolved at this point - He does have significant cerebrovascular disease as evidenced by multiple recu rrent strokes and encephalomalacia as well as high-grade stenoses in the cerebral vasculature on CT. - He also has a previous history earlier this year with an admission for a similar presentation which resolved with treatment of his hypertension - Most likely secondary to hypertensive encephalopathy/possible TIA? Patient was driving up to a weak ago and talking with family states he doesn't yet sound his normal self as of yesterday - his speech does sound better and he admits he was having issues with his dentures and it did sound like the was talking through his teeth - speech is clear and no focal deficits - ASA was changed to clopidogrel; continue atorvastatin 80 can consider the diagnosis is encephalopathy from hypertension with possible TIA (2) HTN (hypertension): Plan: - With significant elevated blood pressures on arrival in the 200s over 110s- with likely hypertensive encephalopathy - Increased lisinopril to 20 mg daily with good blood pressure response but having some soft pressures - also stated some dizziness with standing/orthostasis - review of outpatient records shows his BP has been good so will reduce to 15 mg daily and add CHAUNCEY hose to help with vascular return - Can check orthostatics and monitor (3) Atrial fibrillation: Plan: - Permanent atrial fibrillation; Rate controlled - Continue apixaban for anticoagulation - He is not on any AV chris blockade (4) BPH (benign prostatic hyperplasia): Plan: - No acute issues - Continue home finasteride, tamsulosin (5) Brainstem stroke: Plan: - History of multiple previous strokes seen on CT - Continue apixaban, adding clopidogrel in place of aspirin, high intensity atorvastatin - Blood pressure control (6) Coronary artery disease: Plan: - Status post CABG - No acute issues, troponin is negative, no chest pain, no ischemic changes on ECG - Continue Plavix and statin - He is not on a mzmx-msndaek-eyyksev reason (7) Diabetic neuropathy: Plan: - Continue home pregabalin (8) DM type 2 (diabetes mellitus, type 2): Plan: - Hemoglobin A1c 7.2% in 08/2020-very well controlled for age and comorbidities (9) GERD (gastroesophageal reflux disease): Plan: - No acute issues - Continue home famotidine (10) Hyperlipidemia: Plan: - Continue high intensity statin (11) Hypothyroid: Plan: - TSH is WNL - Continue home levothyroxine (12) Stage III chronic kidney disease: Plan: - Creatinine baseline around 1.45 - mild elevation today may be from increased Lisinopril/Toradol - will had gentle hydration today -Avoid nephrotoxins; renally dose meds when appropriate - Follow BMP (13) Memory impairment: Plan: - Mild - Is on 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 Did have some dizziness with walking but said it was brief and less than yesterday. He reports his RLQ pain is completely resolved. His speech sounds better today and states he was having issues with his dentures yesterday as it does sound like he was talking through his teeth. Review of Systems Review of Systems: REVIEW OF SYSTEMS General/Constitutional: Denies fever/chills Cardiovascular: Denies chest pain, palpitations, edema Respiratory: Denies cough, sputum, SOB, wheezing, orthopnea GI: Denies nausea, vomiting, abdominal pain : Denies dysuria Musculoskeletal: Denies joint/muscle aches Neurologic: + Dizziness this AM with walking but less than yesterday Physical Exam Physical Exam: PHYSICAL EXAM General Appearance: WDWN in NAD HEENT: Head is normocephalic/atraumatic; Hearing grossly intact Neck: Supple; Trachea midline; Neg JVD Heart: RRR Lungs: CTA in all lung lange bilaterally; Respirations unlabored; Neg accessory muscle use Abdomen: Soft, non-tender, non-distended; Positive BS x 4 quadrants Extremities: Neg cyanosis or edema Neurological: Speech clear; Gross motor/sensory function intact; Neg focal neurologic deficits Psychiatric: Appropriate mood/affect Skin: Normal Color; Warm/Dry Results & Data Results & Data ([facility]) Vital Signs (Past 12 Hours) Vital Signs Temp Pulse Pulse Resp BP BP Pulse Ox 05/08/21 08:08 64 05/08/21 08:00 36.4 C L 79 20 135/89 92 05/08/21 03:04 36.7 C 74 18 152/93 H 97 05/07/21 23:00 37 C 67 19 138/88 98 PG Care Time/CCT Total # of Minutes Spent Total Time Spent with Patient: Total time spent is greater than 50% in coordination of care (as documented) at patient's floor/unit and/or counseling patient: Coding Level of Care Code 55612 Subseq Hosp Care Lvl 3 Diagnoses Acute encephalopathy G93.40 HTN (hypertension) I10 Atrial fibrillation I48.91 BPH (benign prostatic hyperplasia) N40.0 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 Coronary artery disease I25.10 Diabetic neuropathy E11.40 DM type 2 (diabetes mellitus, type 2) E11.9; Z79.4 Diabetes mellitus terminal makeup operator insulin use: with terminal makeup operator use Diabetes mellitus complication status: without complication GERD (gastroesophageal reflux disease) K21.9 Esophagitis presence: esophagitis presence not specified Hyperlipidemia E78.2 Hyperlipidemia type: mixed hyperlipidemia Hypothyroid E03.9 Hypothyroidism type: acquired Stage III chronic kidney disease N18.3 Memory impairment R41.3 Thrombocytopenia D69.6 Depression F32.9 DVT prophylaxis Z29.9 (1) DM type 2 (diabetes mellitus, type 2) Diabetes mellitus terminal makeup operator insulin use: with nursing home use Diabetes mellitus complication status: without complication Qualified Code(s): E11.9 - Type 2 diabetes mellitus without complications; Z79.4 - roasterman (current) use of insulin (2) GERD (gastroesophageal reflux disease) Esophagitis presence: esophagitis presence not specified Qualified Code(s): K21.9 - Gastro-esophageal reflux disease without esophagitis (3) Hyperlipidemia Hyperlipidemia type: mixed hyperlipidemia Qualified Code(s): E78.2 - Mixed hyperlipidemia (4) Hypothyroid Hypothyroidism type: acquired Qualified Code(s): E03.9 - Hypothyroidism, unspecified
[2021-05-08] MEDS: ACETAMINOPHEN 325 MG TAB PO PRN (10:49)
[2021-05-08] MEDS: ATORVASTATIN 40 MG TAB PO SCH (21:08)
[2021-05-08] MEDS: hydrALAZINE HCL 20 MG/ML VIAL IV PRN (23:04)
[2021-05-09] MEDS: LEVOTHYROXINE SODIUM 50 MCG TABLET PO SCH (05:55)
[2021-05-09] MEDS: CALCIUM POLYCARBOPHIL 625MG TAB PO SCH (08:53)
[2021-05-09] MEDS: APIXABAN 2.5 MG TAB PO SCH ×2 (08:53→20:34)
[2021-05-09] MEDS: DOCUSATE SODIUM 100 MG CAP PO SCH ×2 (08:54→20:34)
[2021-05-09] MEDS: FINASTERIDE 5 MG TAB PO SCH (08:54)
[2021-05-09] MEDS: DULoxetine HCL 60 MG CAP PO SCH (08:54)
[2021-05-09] MEDS: PREGABALIN 100 MG CAP PO SCH ×3 (08:54→20:33)
[2021-05-09] MEDS: CLOPIDOGREL BISULFATE 75 MG TAB PO SCH (08:54)
[2021-05-09] MEDS: FAMOTIDINE 20 MG TAB PO SCH ×2 (08:54→20:36)
[2021-05-09] MEDS: lisinopril 5 MG TAB PO SCH (08:54)
[2021-05-09] MEDS: PANTOprazole 40 MG TAB PO SCH (08:54)
[2021-05-09] MEDS: CARBIDOPA/LEVODOPA 25/100MG TAB PO SCH ×3 (08:54→20:34)
[2021-05-09] MEDS: MAGNESIUM OXIDE 400 MG TAB PO SCH ×2 (08:54→20:33)
[2021-05-09] MEDS: INSULIN HUMAN NPH SC SCH ×2 (08:54→17:23)
[2021-05-09] MEDS: TAMSULOSIN HCL 0.4 MG CAP PO SCH (08:54)
[2021-05-09] MEDS: INSULIN ASPART 100 UNITS/ML 3 ML PEN SC SCH ×4 (08:54→20:38)
[2021-05-09 09:11] LABS: BUN Creatinine Ratio 15.4 (10-20); Calcium 9.2 mg/dl (8.5-10.1); Creatinine Clr Calc Pharmacy 40.5 ml/min; Est GFR (African American) 47.4 ml/min; Est GFR (Non-African American) 40.9 ml/min; Potassium 4.3 mmol/L (3.5-5.1)
--- NOTE | 2021-05-09 15:35 | Hospitalist Progress Note ---
Date of Service May 09, 2021 Assessment & Plan (1) Acute encephalopathy: Plan: - Patient presents with acute onset of confusion. No acute changes on CT of head or CT angiogram of head and neck - Covid negative - Lyme and anaplasmosis negative - CT abd/pelvis, negative for intra-abdominal pathology specifically negative for appendicitis - RLQ is completely resolved at this point - He does have significant cerebrovascular disease as evidenced by multiple recu rrent strokes and encephalomalacia as well as high-grade stenoses in the cerebral vasculature on CT. - He also has a previous history earlier this year with an admission for a similar presentation which resolved with treatment of his hypertension - Most likely secondary to hypertensive encephalopathy/possible TIA? Patient was driving up to a weak ago prior to admission - Patient is more confused today - is alert to person/place but not time - more impulsive - did have higher BPs overnight?? - ASA was changed to clopidogrel; continue atorvastatin 80 can consider the di agnosis is encephalopathy from hypertension with possible TIA (2) HTN (hypertension): Plan: - With significant elevated blood pressures on arrival in the 200s over 110s- with likely hypertensive encephalopathy - Increased lisinopril to 20 mg daily with good blood pressure response but having some soft pressures - also stated some dizziness with standing/orthostasis - review of outpatient records shows his BP has been good so will reduce to 15 mg daily and add CHAUNCEY hose to help with vascular return - Monitor orthostatics and monitor; would rather let his BP run slightly higher 140-150 given the orthostasis (3) Atrial fibrillation: Plan: - Permanent atrial fibrillation; Rate controlled - Continue apixaban for anticoagulation - He is not on any AV chris blockade (4) BPH (benign prostatic hyperplasia): Plan: - No acute issues - Continue home finasteride, tamsulosin (5) Brainstem stroke: Plan: - History of multiple previous strokes seen on CT - Continue apixaban, adding clopidogrel in place of aspirin, high intensity atorvastatin - Blood pressure control (6) Coronary artery disease: Plan: - Status post CABG - No acute issues, troponin is negative, no chest pain, no ischemic changes on ECG - Continue Plavix and statin - He is not on a omfd-xyfrbtv-jgvtcsx reason (7) Diabetic neuropathy: Plan: - Continue home pregabalin (8) DM type 2 (diabetes mellitus, type 2): Plan: - Hemoglobin A1c 7.2% in 08/2020-very well controlled for age and comorbidities (9) GERD (gastroesophageal reflux disease): Plan: - No acute issues - Continue home famotidine (10) Hyperlipidemia: Plan: - Continue high intensity statin (11) Hypothyroid: Plan: - TSH is WNL - Continue home levothyroxine (12) Stage III chronic kidney disease: Plan: - Creatinine baseline around 1.45 - mild elevation today may be from increased Lisinopril/Toradol - will monitor -Avoid nephrotoxins; renally dose meds when appropriate - Follow BMP (13) Memory impairment: Plan: - Mild - 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 (14) Thrombocytopenia: Plan: - chronic no evidence of hepatosplenomegaly on abdominal imaging in the last several years - B12 level was normal 2018 - Monitor CBC occasionally (15) Depression: Plan: - Continue home Cymbalta (16) DVT prophylaxis: Plan: Apixaban Disposition- more confused today, check UA but no obvious signs of infection - possibly some hospital delirium?; Patient and family agreeable to rehab but would like the confusion to subside as he was better for the past 1-2 days Admission and Anticipated Discharge Date Admission Date: May 06, 2021 Subjective Patient is more confused today. Visited patient while working with PT. He was alert and with prompting knew his name, age, and he was in the hospital. He did not have a sense of time and felt he was only in the hospital a few hours. He reports he is not dizzy today however it was hard to keep him focused on task. No focal deficits appreciated. Was able to ambulate but more impulsive with walking. His BP was a bit elevated overnight compared to previous days. Does not verbalizes any complaints. Review of Systems Review of Systems: REVIEW OF SYSTEMS General/Constitutional: Denies fever/chills Cardiovascular: Denies chest pain, palpitations, edema Respiratory: Denies cough, sputum, SOB, wheezing, orthopnea GI: Denies nausea, vomiting, abdominal pain : Denies dysuria Musculoskeletal: Denies joint/muscle aches Neurologic: Denies dizziness Physical Exam Physical Exam: PHYSICAL EXAM General Appearance: WDWN in NAD who is alert and oriented to self and place but limited on time HEENT: Head is normocephalic/atraumatic; heard of hearing Neck: Supple; Trachea midline; Neg JVD Heart: RRR Lungs: CTA in all lung lange bilaterally; Respirations unlabored; Neg accessory muscle use Abdomen: Soft, non-tender, non-distended; Positive BS x 4 quadrants Extremities: Neg cyanosis or edema Neurological: Speech clear; Gross motor/sensory function intact; Neg focal neurologic deficits Psychiatric: Confused, very talkative and impulsive with trying to get up and walk Skin: Normal Color; Warm/Dry Results & Data Results & Data ([facility]) Vital Signs (Past 12 Hours) Vital Signs Temp Pulse Pulse Resp BP Pulse Ox 05/09/21 15:29 80 05/09/21 15:00 36.3 C L 73 16 126/78 97 05/09/21 07:13 78 05/09/21 04:17 36.5 C 73 20 173/94 H 94 PG Care Time/CCT Total # of Minutes Spent Total Time Spent with Patient: Total time spent is greater than 50% in coordination of care (as documented) at patient's floor/unit and/or counseling patient: Coding Level of Care Code 94365 Subseq Hosp Care Lvl 3 Diagnoses Acute encephalopathy G93.40 HTN (hypertension) I10 Atrial fibrillation I48.91 BPH (benign prostatic hyperplasia) N40.0 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 Coronary artery disease I25.10 Diabetic neuropathy E11.40 DM type 2 (diabetes mellitus, type 2) E11.9; Z79.4 Diabetes mellitus complication status: without complication Diabetes mellitus penitentiary insulin use: with penitentiary use GERD (gastroesophageal reflux disease) K21.9 Esophagitis presence: esophagitis presence not specified Hyperlipidemia E78.2 Hyperlipidemia type: mixed hyperlipidemia Hypothyroid E03.9 Hypothyroidism type: acquired Stage III chronic kidney disease N18.3 Memory impairment R41.3 Thrombocytopenia D69.6 Depression F32.9 DVT prophylaxis Z29.9 (1) DM type 2 (diabetes mellitus, type 2) Diabetes mellitus complication status: without complication Diabetes mellitus terminal carman insulin use: with terminal carman use Qualified Code(s): E11.9 - Type 2 diabetes mellitus without complications; Z79.4 - group home (current) use of insulin (2) Hyperlipidemia Hyperlipidemia type: mixed hyperlipidemia Qualified Code(s): E78.2 - Mixed hyperlipidemia (3) Hypothyroid Hypothyroidism type: acquired Qualified Code(s): E03.9 - Hypothyroidism, unspecified (4) GERD (gastroesophageal reflux disease) Esophagitis presence: esophagitis presence not specified Qualified Code(s): K21.9 - Gastro-esophageal reflux disease without esophagitis
[2021-05-09 16:41] LABS: Appearance Urine Clear (Clear); Bilirubin Urine Negative (Negative); Blood Urine Negative (Negative); Color Urine Yellow; Glucose Urine UA Negative (Negative); Ketones Urine Negative (Negative); Leukocyte Esterase Urine Negative (Negative); Nitrite Urine Negative (Negative); Protein Urine Negative (Negative); Urobilinogen Urine Negative (Negative); pH Urine 6.5 (4.5-7.5)
[2021-05-09 18:19] LABS: Base Excess VBG -0.6 mEq/L; HCO3 VBG 25 mmol/L; PCO2 VBG 46 mmHg (38-50); PO2 VBG 24 mmHg; pH VBG 7.36 (7.36-7.41)
[2021-05-09 18:22] LABS: Oxygen Saturation VBG < 60.0 %
--- NOTE | 2021-05-09 19:01 | XRay Report ---
SINGLE VIEW CHEST CLINICAL HISTORY: Change in mental status. Dyspnea. FINDINGS: An AP, portable, upright chest radiograph is compared to study dated 05/04/2021. The patient is status post midline sternotomy. The heart is enlarged noting atherosclerotic calcification of the thoracic aorta. The pulmonary vasculature is noncongested. Chronic interstitial thickening is simila r to previous. There is mild bibasilar atelectasis. The lungs and pleural spaces are otherwise clear. No pneumothorax is seen. The skeletal structures are osteopenic. The bony thorax is grossly intact. Residual enteric contrast is noted in the left upper quadrant. IMPRESSION: Cardiomegaly with no active disease in the chest. Pulmonary vascular congestion has resol cristina from previous. ACT 112: Negative or not required by law. Electronically signed by: Crow Wells M.D. 05/09/2021 7:00 PM
[2021-05-09] MEDS: ATORVASTATIN 40 MG TAB PO SCH (20:36)
[2021-05-09] MEDS: hydrALAZINE HCL 20 MG/ML VIAL IV PRN (23:06)
[2021-05-10] MEDS: LEVOTHYROXINE SODIUM 50 MCG TABLET PO SCH (05:31)
[2021-05-10 06:45] LABS: Hematocrit (blood only) 43.4 % (42-52); Hemoglobin 15.4 g/dL (14.0-18.0); Mean Corpuscular Hemoglobin 30.9 pg (25-34); Mean Corpuscular Hgb Conc 35.5 g/dL (32-36); Mean Platelet Volume 12.5 fL (7.4-10.4); Platelet Count 90 K/uL (130-400); RDW Coefficient of Variation 14.2 % (11.5-14.5); RDW Standard Deviation 45.4 fL (36.4-46.3); Red Blood Count 4.99 M/uL (4.7-6.1); White Blood Count 5.84 K/uL (4.8-10.8)
[2021-05-10 07:16] LABS: BUN Creatinine Ratio 16.5 (10-20); Calcium 9.1 mg/dl (8.5-10.1); Creatinine Clr Calc Pharmacy 47.7 ml/min; Est GFR (African American) 57.7 ml/min; Est GFR (Non-African American) 49.8 ml/min
[2021-05-10] MEDS: PANTOprazole 40 MG TAB PO SCH (08:26)
[2021-05-10] MEDS: DULoxetine HCL 60 MG CAP PO SCH (08:26)
[2021-05-10] MEDS: lisinopril 5 MG TAB PO SCH (08:26)
[2021-05-10] MEDS: CLOPIDOGREL BISULFATE 75 MG TAB PO SCH (08:27)
[2021-05-10] MEDS: CALCIUM POLYCARBOPHIL 625MG TAB PO SCH (08:27)
[2021-05-10] MEDS: FINASTERIDE 5 MG TAB PO SCH (08:27)
[2021-05-10] MEDS: FAMOTIDINE 20 MG TAB PO SCH ×2 (08:27→20:41)
[2021-05-10] MEDS: TAMSULOSIN HCL 0.4 MG CAP PO SCH (08:27)
[2021-05-10] MEDS: DOCUSATE SODIUM 100 MG CAP PO SCH ×2 (08:27→20:40)
[2021-05-10] MEDS: APIXABAN 2.5 MG TAB PO SCH ×2 (08:27→20:39)
[2021-05-10] MEDS: MAGNESIUM OXIDE 400 MG TAB PO SCH ×2 (08:28→20:41)
[2021-05-10] MEDS: CARBIDOPA/LEVODOPA 25/100MG TAB PO SCH ×3 (08:28→20:40)
[2021-05-10] MEDS: INSULIN ASPART 100 UNITS/ML 3 ML PEN SC SCH ×4 (08:29→20:59)
[2021-05-10] MEDS: INSULIN HUMAN NPH SC SCH ×2 (08:29→17:25)
[2021-05-10] MEDS: PREGABALIN 100 MG CAP PO SCH ×3 (08:32→20:41)
[2021-05-10] MEDS: AMOXICILLIN/CLAVULANATE 875 MG TAB PO SCH ×2 (13:56→17:26)
--- NOTE | 2021-05-10 14:04 | CT Scan Report ---
HEAD CT NONCONTRAST CT DOSE: 1219.50 mGycm HISTORY: Increased Confusion/Headache on Anticoagulation TECHNIQUE: Multiaxial CT images of the head were performed without the use of intravenous contrast. A utomated exposure control was utilized for this study. A dose lowering technique was utilized adheri ng to the principles of ALARA. Comparison: Head CT 05/04/2021. Findings: Chronic opacification of the bilateral mastoid air cells. There is again noted a 3.8 cm sinan yp within the left nasal cavity. The calvarium and skull base are intact. There is no mass, hematoma, midline shift, acute infarct. White matter hypodensity is nonspecific but suggestive of microvascula r ischemic change. The ventricles and sulci demonstrate mild age-related involutional changes. Old la cunar infarct seen within the bilateral basal ganglia and left thalamus. Old right temporal lobe infa rct again noted. Impression: No significant change compared to the prior study. No acute intracranial abnormality. ACT 112: Negative or not required by law. Electronically signed by: Guy Burdick M.D. 05/10/2021 2:02 PM
[2021-05-10] MEDS ORDERED: SODIUM CHLORIDE 0.9% 500 ML IV ONE (15:28)
--- NOTE | 2021-05-10 19:09 | Hospitalist Progress Note ---
Date of Service May 10, 2021 Assessment & Plan (1) Acute encephalopathy: Plan: - Patient presents with acute onset of confusion. No acute changes on CT of head or CT angiogram of head and neck or any new findings of repeat CT - Covid negative - Lyme and anaplasmosis negative - CT abd/pelvis, negative for intra-abdominal pathology specifically negative for appendicitis - RLQ is completely resolved at this point - Ammonia negative; VBG WNL - Does have sinus congestion and some tenderness when palp of the maxillary sinuses however no other findings to suggest infection - He does have significant cerebrovascular disease as evidenced by multiple recurrent strokes and encephalomalacia as well as high-grade stenoses in the cerebral vasculature on CT. - He also has a previous history earlier this year with an admission for a similar presentation which resolved with treatment of his hypertension - Most likely secondary to hypertensive encephalopathy/possible TIA? Patient was driving up to a weak ago prior to admission - Patient had some confusion this AM but seemed to improve throughout the day and was able to recall my conversation from my first visit in the day - did review his mini-cog eval done in March with a score of 3/5 which was borderline to consider underlying dementia. No specific findings were found to explain confusion other than he did have higher BPs the night prior to the confusion. Could be hospital delirium. However is also have wide swings with blood pressures. Recommend to not over correct for blood pressure as he gets orthostatic with standing and the Hydralazine seems to last longer on him - ASA was changed to clopidogrel; continue atorvastatin 80 can consider the diagnosis is encephalopathy from hypertension with possible TIA (2) HTN (hypertension): Plan: - With significant elevated blood pressures on arrival in the 200s over 110s- with likely hypertensive encephalopathy - Increased lisinopril to 20 mg daily with good blood pressure response but having some soft pressures and orthostasis - review of outpatient records shows his BP has been good so will reduce to 15 mg daily and add CHAUNCEY hose to help with vascular return - Monitor orthostatics and monitor; would rather let his BP run slightly higher 140-150 given the orthostasis (3) Atrial fibrillation: Plan: - Permanent atrial fibrillation; Rate controlled - Continue apixaban for anticoagulation - He is not on any AV chris blockade (4) BPH (benign prostatic hyperplasia): Plan: - No acute issues - Continue home finasteride, tamsulosin (5) Brainstem stroke: Plan: - History of multiple previous strokes seen on CT - Continue apixaban, adding clopidogrel in place of aspirin, high intensity atorvastatin - Blood pressure control (6) Coronary artery disease: Plan: - Status post CABG - No acute issues, troponin is negative, no chest pain, no ischemic changes on ECG - Continue Plavix and statin - He is not on a [id number] reason - but BP and orthostasis likely would not allow for this (7) Diabetic neuropathy: Plan: - Continue home pregabalin (8) DM type 2 (diabetes mellitus, type 2): Plan: - Hemoglobin A1c 7.2% in 08/2020-very well controlled for age and comorbidities (9) GERD (gastroesophageal reflux disease): Plan: - No acute issues - Continue home famotidine (10) Hyperlipidemia: Plan: - Continue high intensity statin (11) Hypothyroid: Plan: - TSH is WNL - Continue home levothyroxine (12) Stage III chronic kidney disease: Plan: - Creatinine baseline around 1.45 - currently at baseline -Avoid nephrotoxins; renally dose meds when appropriate - Follow BMP (13) Memory impairment: Plan: - 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 Seemed to improve as the afternoon went on. Suspect the drastic swing in his BPs could be affecting him and would recommend avoiding Hydralazine. If still confused tomorrow with discuss with Neurology for any recommendations or additional testing - Awaiting to here for approval for rehab Admission and Anticipated Discharge Date Admission Date: May 06, 2021 Subjective Patient with confusion this AM but it seemed to improve through the afternoon. Only complaint today is of some stuffiness in his nose and a headache. Head CT without acute findings. Review of Systems Review of Systems: REVIEW OF SYSTEMS General/Constitutional: Denies fever/chills ENT: + nasal congestion Cardiovascular: Denies chest pain, palpitations, edema Respiratory: Denies cough, sputum, SOB, wheezing, orthopnea GI: Denies nausea, vomiting, abdominal pain : Denies dysuria Musculoskeletal: Denies joint/muscle aches Neurologic: Denies dizziness Physical Exam Physical Exam: PHYSICAL EXAM General Appearance: WDWN in NAD who is alert and oriented x 3 but thought he was at the bank yesterday but realizes now he was in the hospital HEENT: Head is normocephalic/atraumatic; heard of hearing Neck: Supple; Trachea midline; Neg JVD Heart: RRR Lungs: CTA in all lung lange bilaterally; Respirations unlabored; Neg accessory muscle use Abdomen: Soft, non-tender, non-distended; Positive BS x 4 quadrants Extremities: Neg cyanosis or edema Neurological: Speech clear; Gross motor/sensory function intact; Neg focal neurologic deficits Psychiatric: Normal Mood and Affect - was more confused this AM but improved this afternoon Skin: Normal Color; Warm/Dry Results & Data Results & Data ([facility]) Vital Signs (Past 12 Hours) Vital Signs Temp Pulse Pulse Resp BP BP Pulse Ox 05/10/21 15:15 76 05/10/21 15:12 36.6 C 75 18 92/58 L 90/48 L 98 05/10/21 11:22 36.6 C 60 18 105/63 98 05/10/21 10:43 61 05/10/21 07:44 36.7 C 71 16 119/77 92 PG Care Time/CCT Total # of Minutes Spent Total Time Spent with Patient: Total time spent is greater than 50% in coordination of care (as documented) at patient's floor/unit and/or counseling patient: Coding Level of Care Code 22224 Subseq Hosp Care Lvl 3 Diagnoses Acute encephalopathy G93.40 HTN (hypertension) I10 Atrial fibrillation I48.91 BPH (benign prostatic hyperplasia) N40.0 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 Coronary artery disease I25.10 Diabetic neuropathy E11.40 DM type 2 (diabetes mellitus, type 2) E11.9; Z79.4 Diabetes mellitus 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 insulin use: with 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 use Diabetes mellitus complication status: without complication GERD (gastroesophageal reflux disease) K21.9 Esophagitis presence: esophagitis presence not specified Hyperlipidemia E78.2 Hyperlipidemia type: mixed hyperlipidemia Hypothyroid E03.9 Hypothyroidism type: acquired Stage III chronic kidney disease N18.3 Memory impairment R41.3 Thrombocytopenia D69.6 Depression F32.9 DVT prophylaxis Z29.9 (1) DM type 2 (diabetes mellitus, type 2) Diabetes mellitus 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 insulin use: with intermediate manager use Diabetes mellitus complication status: without complication Qualified Code(s): E11.9 - Type 2 diabetes mellitus without complications; Z79.4 - retirement (current) use of insulin (2) GERD (gastroesophageal reflux disease) Esophagitis presence: esophagitis presence not specified Qualified Code(s): K21.9 - Gastro-esophageal reflux disease without esophagitis (3) Hyperlipidemia Hyperlipidemia type: mixed hyperlipidemia Qualified Code(s): E78.2 - Mixed hyperlipidemia (4) Hypothyroid Hypothyroidism type: acquired Qualified Code(s): E03.9 - Hypothyroidism, unspecified
[2021-05-10] MEDS: ATORVASTATIN 40 MG TAB PO SCH (20:09)
[2021-05-11] MEDS: LEVOTHYROXINE SODIUM 50 MCG TABLET PO SCH (05:37)
[2021-05-11] MEDS: INSULIN ASPART 100 UNITS/ML 3 ML PEN SC SCH ×4 (08:50→20:12)
[2021-05-11] MEDS: INSULIN HUMAN NPH SC SCH ×2 (08:51→17:14)
[2021-05-11] MEDS: CARBIDOPA/LEVODOPA 25/100MG TAB PO SCH ×3 (08:52→20:17)
[2021-05-11] MEDS: PREGABALIN 100 MG CAP PO SCH ×3 (08:52→20:31)
[2021-05-11] MEDS: APIXABAN 2.5 MG TAB PO SCH ×2 (08:52→20:16)
[2021-05-11] MEDS: AMOXICILLIN/CLAVULANATE 875 MG TAB PO SCH ×2 (08:53→17:14)
[2021-05-11] MEDS: TAMSULOSIN HCL 0.4 MG CAP PO SCH (08:53)
[2021-05-11] MEDS: DULoxetine HCL 60 MG CAP PO SCH (08:53)
[2021-05-11] MEDS: DOCUSATE SODIUM 100 MG CAP PO SCH ×2 (08:53→20:16)
[2021-05-11] MEDS: MAGNESIUM OXIDE 400 MG TAB PO SCH ×2 (08:53→20:18)
[2021-05-11] MEDS: CLOPIDOGREL BISULFATE 75 MG TAB PO SCH (08:53)
[2021-05-11] MEDS: FINASTERIDE 5 MG TAB PO SCH (08:53)
[2021-05-11] MEDS: FAMOTIDINE 20 MG TAB PO SCH ×2 (08:53→20:14)
[2021-05-11] MEDS: lisinopril 5 MG TAB PO SCH (08:53)
[2021-05-11] MEDS: PANTOprazole 40 MG TAB PO SCH (08:53)
[2021-05-11] MEDS: CALCIUM POLYCARBOPHIL 625MG TAB PO SCH (08:54)
--- NOTE | 2021-05-11 11:28 | Hospitalist Progress Note ---
Date of Service May 11, 2021 Assessment & Plan (1) Acute encephalopathy: Plan: - Patient presented with acute onset of confusion. No acute changes on CT of head or CT angiogram of head and neck or any new findings of repeat CT - Covid negative - Lyme and anaplasmosis negative - CT abd/pelvis, negative for intra-abdominal pathology specifically negative for appendicitis - RLQ is completely resolved at this point - Ammonia negative; VBG WNL - Does have sinus congestion and some tenderness when palp of the maxillary sinuses however no other findings to suggest infection - He does have significant cerebrovascular disease as evidenced by multiple recurrent strokes and encephalomalacia as well as high-grade stenoses in the cerebral vasculature on CT. - He also has a previous history earlier this year with an admission for a similar presentation which resolved with treatment of his hypertension - Most likely secondary to hypertensive encephalopathy/possible TIA? Patient was driving up to a weak ago prior to admission - Mentation seems to be at baseline currently, did not see signs of confusion during my visit - did review his mini-cog eval done in March with a score of 3/5 which was borderline to consider underlying dementia. No specific findings were found to explain confusion other than he did have higher BPs the night prior to the confusion. Could be hospital delirium. However is also have wide swings with blood pressures. Recommend to not over correct for blood pressure as he gets orthostatic with standing and the Hydralazine seems to last longer on him - ASA was changed to clopidogrel; continue atorvastatin 80 can consider the diagnosis is encephalopathy from hypertension with possible TIA (2) HTN (hypertension): Plan: - With significant elevated blood pressures on arrival in the 200s over 110s- with likely hypertensive encephalopathy - Increased lisinopril to 20 mg daily with good blood pressure response but having some soft pressures and orthostasis - review of outpatient records shows his BP has been good so will reduce to 15 mg daily and add CHAUNCEY hose to help with vascular return - Monitor orthostatics and monitor; would rather let his BP run slightly higher 140-150 given the orthostasis (3) Atrial fibrillation: Plan: - Permanent atrial fibrillation; Rate controlled - Continue apixaban for anticoagulation - He is not on any AV chris blockade (4) BPH (benign prostatic hyperplasia): Plan: - No acute issues - Continue home finasteride, tamsulosin (5) Brainstem stroke: Plan: - History of multiple previous strokes seen on CT - Continue apixaban, adding clopidogrel in place of aspirin, high intensity atorvastatin - Blood pressure control (6) Coronary artery disease: Plan: - Status post CABG - No acute issues, troponin is negative, no chest pain, no ischemic changes on ECG - Continue Plavix and statin - He is not on a [id number]-nfhjeua reason - but BP and orthostasis likely would not allow for this (7) Diabetic neuropathy: Plan: - Continue home pregabalin (8) DM type 2 (diabetes mellitus, type 2): Plan: - Hemoglobin A1c 7.2% in 08/2020-very well controlled for age and comorbidities (9) GERD (gastroesophageal reflux disease): Plan: - No acute issues - Continue home famotidine (10) Hyperlipidemia: Plan: - Continue high intensity statin (11) Hypothyroid: Plan: - TSH is WNL - Continue home levothyroxine (12) Stage III chronic kidney disease: Plan: - Creatinine baseline around 1.45 - currently at baseline -Avoid nephrotoxins; renally dose meds when appropriate - Follow BMP (13) Memory impairment: Plan: - 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 Did have higher BPs the night prior so maybe the cause? Suspect the drastic swing in his BPs could be affecting him and would recommend avoiding Hydralazine. If remains baseline mentation would be suitable for D/C to rehab - Have updated son daily and will call later today - Awaiting to here for approval for rehab Admission and Anticipated Discharge Date Admission Date: May 06, 2021 Subjective Pt reports feeling well today. No dizziness. Some sinus congestion but feels well. Mentation is a lot better today. Is alert and oriented x 3. Even reports his son is out of town this week (which is true). Having some difficulty with his hearing aids today. BP has been more stabilized. Is still interested in rehab Review of Systems Review of Systems: REVIEW OF SYSTEMS General/Constitutional: Denies fever/chills ENT: + nasal congestion Cardiovascular: Denies chest pain, palpitations, edema Respiratory: Denies cough, sputum, SOB, wheezing, orthopnea GI: Denies nausea, vomiting, abdominal pain : Denies dysuria Musculoskeletal: Denies joint/muscle aches Neurologic: Denies dizziness Physical Exam Physical Exam: PHYSICAL EXAM General Appearance: WDWN in NAD who is alert and oriented x 3, no signs of confusion currently HEENT: Head is normocephalic/atraumatic; heard of hearing Neck: Supple; Trachea midline; Neg JVD Heart: RRR Lungs: CTA in all lung lange bilaterally; Respirations unlabored; Neg accessory muscle use Abdomen: Soft, non-tender, non-distended; Positive BS x 4 quadrants Extremities: Neg cyanosis or edema Neurological: Speech clear; Gross motor/sensory function intact; Neg focal neurologic deficits Psychiatric: Normal Mood and Affect Skin: Normal Color; Warm/Dry Results & Data Results & Data ([facility]) Vital Signs (Past 12 Hours) Vital Signs Temp Pulse Pulse Resp BP Pulse Ox 05/11/21 09:59 69 05/11/21 08:07 36.6 C 59 L 18 134/79 97 05/11/21 04:19 36.8 C 77 20 164/42 H 98 05/10/21 23:53 36.4 C L 71 18 175/73 H 97 PG Care Time/CCT Total # of Minutes Spent Total Time Spent with Patient: Total time spent is greater than 50% in coordination of care (as documented) at patient's floor/unit and/or counseling patient: Coding Level of Care Code 11189 Subseq Hosp Care Lvl 2 Diagnoses Acute encephalopathy G93.40 HTN (hypertension) I10 Atrial fibrillation I48.91 BPH (benign prostatic hyperplasia) N40.0 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 Coronary artery disease I25.10 Diabetic neuropathy E11.40 DM type 2 (diabetes mellitus, type 2) E11.9; Z79.4 Diabetes mellitus outside sales representative insulin use: with custodial use Diabetes mellitus complication status: without complication GERD (gastroesophageal reflux disease) K21.9 Esophagitis presence: esophagitis presence not specified Hyperlipidemia E78.2 Hyperlipidemia type: mixed hyperlipidemia Hypothyroid E03.9 Hypothyroidism type: acquired Stage III chronic kidney disease N18.3 Memory impairment R41.3 Thrombocytopenia D69.6 Depression F32.9 DVT prophylaxis Z29.9 (1) DM type 2 (diabetes mellitus, type 2) Diabetes mellitus custodial insulin use: with custodial use Diabetes mellitus complication status: without complication Qualified Code(s): E11.9 - Type 2 diabetes mellitus without complications; Z79.4 - assisted (current) use of insulin (2) GERD (gastroesophageal reflux disease) Esophagitis presence: esophagitis presence not specified Qualified Code(s): K21.9 - Gastro-esophageal reflux disease without esophagitis (3) Hyperlipidemia Hyperlipidemia type: mixed hyperlipidemia Qualified Code(s): E78.2 - Mixed hyperlipidemia (4) Hypothyroid Hypothyroidism type: acquired Qualified Code(s): E03.9 - Hypothyroidism, unspecified
[2021-05-11] MEDS: FLUTICASONE PROPIONATE NA SPR 16 GM BTL SCH (20:12)
[2021-05-11] MEDS: ATORVASTATIN 40 MG TAB PO SCH (20:15)
[2021-05-12] MEDS: LEVOTHYROXINE SODIUM 50 MCG TABLET PO SCH (05:37)
[2021-05-12] MEDS: AMOXICILLIN/CLAVULANATE 875 MG TAB PO SCH ×2 (08:44→17:14)
[2021-05-12] MEDS: FAMOTIDINE 20 MG TAB PO SCH ×2 (08:45→21:38)
[2021-05-12] MEDS: PANTOprazole 40 MG TAB PO SCH (08:45)
[2021-05-12] MEDS: MAGNESIUM OXIDE 400 MG TAB PO SCH ×2 (08:45→21:36)
[2021-05-12] MEDS: CARBIDOPA/LEVODOPA 25/100MG TAB PO SCH ×3 (08:45→21:37)
[2021-05-12] MEDS: DOCUSATE SODIUM 100 MG CAP PO SCH ×2 (08:45→21:39)
[2021-05-12] MEDS: CALCIUM POLYCARBOPHIL 625MG TAB PO SCH (08:46)
[2021-05-12] MEDS: TAMSULOSIN HCL 0.4 MG CAP PO SCH (08:46)
[2021-05-12] MEDS: lisinopril 5 MG TAB PO SCH (08:47)
[2021-05-12] MEDS: CLOPIDOGREL BISULFATE 75 MG TAB PO SCH (08:47)
[2021-05-12] MEDS: FINASTERIDE 5 MG TAB PO SCH (08:47)
[2021-05-12] MEDS: DULoxetine HCL 60 MG CAP PO SCH (08:47)
[2021-05-12] MEDS: FLUTICASONE PROPIONATE NA SPR 16 GM BTL SCH (08:48)
[2021-05-12] MEDS: INSULIN ASPART 100 UNITS/ML 3 ML PEN SC SCH ×4 (08:49→21:36)
[2021-05-12] MEDS: INSULIN HUMAN NPH SC SCH ×2 (08:49→17:14)
[2021-05-12] MEDS: PREGABALIN 100 MG CAP PO SCH ×3 (08:52→21:42)
[2021-05-12] MEDS: APIXABAN 2.5 MG TAB PO SCH ×2 (08:53→21:39)
[2021-05-12 09:13] LABS: Hematocrit (blood only) 45.2 % (42-52); Hemoglobin 15.5 g/dL (14.0-18.0); Mean Corpuscular Hemoglobin 30.6 pg (25-34); Mean Corpuscular Hgb Conc 34.3 g/dL (32-36); Mean Corpuscular Volume 89.3 fL (80-100); Mean Platelet Volume 12.9 fL (7.4-10.4); Platelet Count 89 K/uL (130-400); RDW Coefficient of Variation 14.1 % (11.5-14.5); RDW Standard Deviation 45.9 fL (36.4-46.3); Red Blood Count 5.06 M/uL (4.7-6.1); White Blood Count 5.84 K/uL (4.8-10.8)
[2021-05-12 09:30] LABS: BUN Creatinine Ratio 16.1 (10-20); Calcium 8.7 mg/dl (8.5-10.1); Creatinine Clr Calc Pharmacy 47.2 ml/min; Est GFR (African American) 56.6 ml/min; Est GFR (Non-African American) 48.8 ml/min; Potassium 4.3 mmol/L (3.5-5.1)
[2021-05-12] MEDS: ATORVASTATIN 40 MG TAB PO SCH (21:35)
--- NOTE | 2021-05-12 23:29 | Hospitalist Progress Note ---
Date of Service May 12, 2021 Assessment & Plan (1) Acute encephalopathy: Plan: - Patient presented with acute onset of confusion. No acute changes on CT of head or CT angiogram of head and neck or any new findings of repeat CT - Covid negative - Lyme and anaplasmosis negative - CT abd/pelvis, negative for intra-abdominal pathology specifically negative for appendicitis - RLQ is completely resolved at this point - Ammonia negative; VBG WNL - Does have sinus congestion and some tenderness when palp of the maxillary sinuses however no other findings to suggest infection - He does have significant cerebrovascular disease as evidenced by multiple recurrent strokes and encephalomalacia as well as high-grade stenoses in the cerebral vasculature on CT. - He also has a previous history earlier this year with an admission for a similar presentation which resolved with treatment of his hypertension - Most likely secondary to hypertensive encephalopathy/possible TIA? Patient was driving up to a weak ago prior to admission - Mentation seems to be at baseline currently, did review his mini-cog eval done in March with a score of 3/5 which was borderline to consider underlying dementia. No specific findings were found to explain confusion other than he did have higher BPs the night prior to the confusion. Could be hospital delirium. However is also have wide swings with blood pressures. Recommend to not over correct for blood pressure as he gets orthostatic with standing and the Hydralazine seems to last longer on him - ASA was changed to clopidogrel; continue atorvastatin 80 can consider the diagnosis is encephalopathy from hypertension with possible TIA awaiting rehab placement (2) HTN (hypertension): Plan: - With significant elevated blood pressures on arrival in the 200s over 110s- with likely hypertensive encephalopathy - Increased lisinopril to 15 mg daily with good blood pressure response CHAUNCEY hose to help with vascular return - Monitor orthostatics and monitor; would rather let his BP run slightly higher 140-150 given the orthostasis some high BP today but mental status stable (3) Atrial fibrillation: Plan: - Permanent atrial fibrillation; Rate controlled - Continue apixaban for anticoagulation - He is not on any AV chris blockade (4) BPH (benign prostatic hyperplasia): Plan: - No acute issues - Continue home finasteride, tamsulosin (5) Brainstem stroke: Plan: - History of multiple previous strokes seen on CT - Continue apixaban, adding clopidogrel in place of aspirin, high intensity atorvastatin - Blood pressure control (6) Coronary artery disease: Plan: - Status post CABG - No acute issues, troponin is negative, no chest pain, no ischemic changes on ECG - Continue Plavix and statin - He is not on a [id number] reason - but BP and orthostasis likely would not allow for this (7) Diabetic neuropathy: Plan: - Continue home pregabalin (8) DM type 2 (diabetes mellitus, type 2): Plan: - Hemoglobin A1c 7.2% in 08/2020-very well controlled for age and comorbidities (9) GERD (gastroesophageal reflux disease): Plan: - No acute issues - Continue home famotidine (10) Hyperlipidemia: Plan: - Continue high intensity statin (11) Hypothyroid: Plan: - TSH is WNL - Continue home levothyroxine (12) Stage III chronic kidney disease: Plan: - Creatinine baseline around 1.45 - currently at baseline -Avoid nephrotoxins; renally dose meds when appropriate - Follow BMP (13) Memory impairment: Plan: - 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 Did have higher BPs the night prior so maybe the cause? Suspect the drastic swing in his BPs could be affecting him and would recommend avoiding Hydralazine. If remains baseline mentation would be suitable for D/C to rehab - Have updated son daily and will call later today - Awaiting to here for approval for rehab Admission and Anticipated Discharge Date Admission Date: May 06, 2021 Subjective no major issues today, eating fairly well able to get up with assistance waiting the weekend for SNF rehab authorization no chest pain, no dyspnea, no fever, he is hard of hearing Review of Systems Review of Systems: All systems reviewed & are unremarkable except as noted in Subjective Physical Exam Physical Exam: General: well developed, well nourished, elderly male, no acute distress, comfortable EENT: hard of hearing Neck: supple, trachea midline, normal thyroid Lungs: clear to auscultation bilaterally, normal respiratory effort, no accessory muscle use, no distress Heart: regular S1 and S2, no murmur, peripheral pulses normal, capillary refill normal, no edema Abdomen: soft, NT, ND, + BS, no hepatomegaly, normal to percussion Extremities: normal in appearance, no cyanosis, no petechiae, strength is dimini shed in general, cannot stand/transfer without assistance Neuro: awake, cooperative, moves all extremities, no focal motor deficits, CN II-XII intact, sensation in extremities intact, normal speech Skin: warm, dry, no rash, normal turgor Psych: Awake, alert oriented to person and place Results & Data Results & Data ([facility]) Vital Signs (Past 12 Hours) Vital Signs Temp Pulse Pulse Resp BP BP Pulse Ox 05/12/21 20:04 36.5 C 59 L 18 156/77 H 98 05/12/21 16:00 36.8 C 66 20 147/89 H 97 05/12/21 15:00 77 05/12/21 11:35 37 C 62 19 164/89 H 98 Laboratory Results Laboratory Results - last 24 hr 05/12/21 05/12/21 05/12/21 07:34 08:59 08:59 WBC 5.84 RBC 5.06 Hgb 15.5 Hct 45.2 MCV 89.3 MCH 30.6 MCHC 34.3 RDW Std Deviation 45.9 RDW Coeff of Eben 14.1 Plt Count 89 L MPV 12.9 H Sodium 140 Potassium 4.3 Chloride 112 H Carbon Dioxide 23 Anion Gap 5.0 BUN 21 H Creatinine 1.32 Est Cr Clr Drug Dosing 47.2 Est GFR ( Amer) 56.6 Est GFR (Non-Af Amer) 48.8 BUN/Creatinine Ratio 16.1 Glucose 158 H POC Glucose 126 H Calcium 8.7 05/12/21 05/12/21 05/12/21 11:31 16:38 19:57 WBC RBC Hgb Hct MCV MCH MCHC RDW Std Deviation RDW Coeff of Eben Plt Count MPV Sodium Potassium Chloride Carbon Dioxide Anion Gap BUN Creatinine Est Cr Clr Drug Dosing Est GFR ( Amer) Est GFR (Non-Af Amer) BUN/Creatinine Ratio Glucose POC Glucose 192 H 95 127 H Calcium Medications Administered Current Inpatient Medications Acetaminophen (Acetaminophen 325 Mg Tab) 650 mg PO Q4H PRN PRN Reason: Pain or Fever Stop: 06/03/21 20:07 Last Admin: 05/08/21 10:49 Dose: 650 mg Documented by: Amoxicillin/Clavulanate Potassium (Amoxicillin/Clavulanate 875 Mg Tab) 1 tab PO BIDM [facility] Stop: 05/20/21 13:14 Last Admin: 05/12/21 17:14 Dose: 1 tab Documented by: Apixaban (Apixaban 2.5 Mg Tab) 2.5 mg PO BID [facility] Stop: 06/03/21 20:59 Last Admin: 05/12/21 21:39 Dose: 2.5 mg Documented by: Atorvastatin Calcium (Atorvastatin 40 Mg Tab) 80 mg PO HS [facility] Stop: 06/03/21 20:59 Last Admin: 05/12/21 21:35 Dose: 80 mg Documented by: Calcium Polycarbophil (Calcium Polycarbophil 625mg Tab) 1,250 mg PO DAILY [facility] Stop: 06/04/21 08:59 Last Admin: 05/12/21 08:46 Dose: 1,250 mg Documented by: Carbidopa/Levodopa (Carbidopa/Levodopa 25/100mg Tab) 0.5 tab PO TID [facility] Stop: 06/03/21 20:59 Last Admin: 05/12/21 21:37 Dose: 0.5 tab Documented by: Clopidogrel Bisulfate (Clopidogrel Bisulfate 75 Mg Tab) 75 mg PO QAM [facility] Stop: 06/06/21 08:59 Last Admin: 05/12/21 08:47 Dose: 75 mg Documented by: Dextrose (Dextrose 50% 50 Ml Syringe) 25 - 50 ml IV UD PRN; Protocol PRN Reason: Hypoglycemia Protocol Stop: 06/03/21 20:07 Diclofenac Sodium (Diclofenac Sod 1% Gel 100 Gm Tube) 4 gm EXT QID PRN PRN Reason: Pain Stop: 06/03/21 20:59 Docusate Sodium (Docusate Sodium 100 Mg Cap) 100 mg PO BID [facility] Stop: 06/03/21 20:59 Last Admin: 05/12/21 21:39 Dose: 100 mg Documented by: Duloxetine HCl (Duloxetine Hcl 60 Mg Cap) 60 mg PO DAILY [facility] Stop: 06/04/21 08:59 Last Admin: 05/12/21 08:47 Dose: 60 mg Documented by: Famotidine (Famotidine 20 Mg Tab) 20 mg PO BID [facility] Stop: 06/03/21 20:59 Last Admin: 05/12/21 21:38 Dose: 20 mg Documented by: Finasteride (Finasteride 5 Mg Tab) 5 mg PO QAM [facility] Stop: 06/04/21 08:59 Last Admin: 05/12/21 08:47 Dose: 5 mg Documented by: Fluticasone Propionate (Fluticasone Propionate Na Spr 16 Gm Btl) 2 sprays NA DAILY [facility] Stop: 06/10/21 18:44 Last Admin: 05/12/21 08:48 Dose: 2 sprays Documented by: Glucagon (Glucagon For Inj 1 Mg Vial) 1 mg SQ UD PRN; Protocol PRN Reason: Hypoglycemia Protocol Stop: 06/03/21 20:07 Glucose (Glucose 10 Tabs/Tube) 4 - 8 tabs PO UD PRN; Protocol PRN Reason: Hypoglycemia Protocol Stop: 06/03/21 20:07 Glucose (Glucose 40% Gel 15 Gm Tube) 15 - 30 gm PO UD PRN; Protocol PRN Reason: Hypoglycemia Protocol Stop: 06/03/21 20:07 Insulin Aspart (Insulin Aspart 100 Units/Ml 3 Ml Pen) 0 units SC ACHS [facility] Stop: 06/03/21 20:59 Last Admin: 05/12/21 21:36 Dose: Not Given Documented by: Insulin Human NPH (Insulin Human Nph) 10 units SC BIDM [facility] Stop: 06/03/21 20:59 Last Admin: 05/12/21 17:14 Dose: 10 units Documented by: Levothyroxine Sodium (Levothyroxine Sodium 50 Mcg Tablet) 50 mcg PO DAILYBB [facility] Stop: 06/04/21 06:29 Last Admin: 05/12/21 05:37 Dose: 50 mcg Documented by: Lisinopril (Lisinopril 5 Mg Tab) 5 mg PO QAM [facility] Stop: 06/04/21 08:59 Last Admin: 05/07/21 09:15 Dose: 5 mg Documented by: Lisinopril (Lisinopril 5 Mg Tab) 15 mg PO QAM [facility] Stop: 06/08/21 08:59 Last Admin: 05/12/21 08:47 Dose: 15 mg Documented by: Magnesium Oxide (Magnesium Oxide 400 Mg Tab) 400 mg PO BID [facility] Stop: 06/03/21 20:59 Last Admin: 05/12/21 21:36 Dose: 400 mg Documented by: Miscellaneous (Carbohydrates For Hypoglycemia ) 15 - 30 gm PO UD PRN PRN Reason: Hypoglycemia Protocol Stop: 06/03/21 20:07 Ondansetron HCl (Ondansetron Inj 2 Mg/Ml 2 Ml Vial) 4 mg IV Q6H PRN PRN Reason: Nausea Stop: 06/03/21 20:07 Last Admin: 05/04/21 22:14 Dose: 4 mg Documented by: Pantoprazole Sodium (Pantoprazole 40 Mg Tab) 40 mg PO QAM [facility] Stop: 06/04/21 08:59 Last Admin: 05/12/21 08:45 Dose: 40 mg Documented by: Polyethylene Glycol (Polyethylene (Miralax) 17 Gm Pack) 17 gm PO DAILY PRN PRN Reason: Constipation Stop: 06/03/21 20:07 Pregabalin (Pregabalin 100 Mg Cap) 100 mg PO TID [facility] Stop: 06/03/21 20:59 Last Admin: 05/12/21 21:42 Dose: 100 mg Documented by: Tamsulosin HCl (Tamsulosin Hcl 0.4 Mg Cap) 0.4 mg PO QAM [facility] Stop: 06/04/21 08:59 Last Admin: 05/12/21 08:46 Dose: 0.4 mg Documented by: PG Care Time/CCT Total # of Minutes Spent Total Time Spent with Patient: Total time spent is greater than 50% in coordination of care (as documented) at patient's floor/unit and/or counseling patient: Coding Level of Care Code 22827 Subseq Hosp Care Lvl 2 Diagnoses Acute encephalopathy G93.40 HTN (hypertension) I10 Atrial fibrillation I48.91 BPH (benign prostatic hyperplasia) N40.0 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 Coronary artery disease I25.10 Diabetic neuropathy E11.40 DM type 2 (diabetes mellitus, type 2) E11.9; Z79.4 Diabetes mellitus complication status: without complication Diabetes mellitus hand stitcher insulin use: with senior living use GERD (gastroesophageal reflux disease) K21.9 Esophagitis presence: esophagitis presence not specified Hyperlipidemia E78.2 Hyperlipidemia type: mixed hyperlipidemia Hypothyroid E03.9 Hypothyroidism type: acquired Stage III chronic kidney disease N18.3 Memory impairment R41.3 Thrombocytopenia D69.6 Depression F32.9 DVT prophylaxis Z29.9 (1) DM type 2 (diabetes mellitus, type 2) Diabetes mellitus complication status: without complication Diabetes mellitus hand stitcher insulin use: with senior living use Qualified Code(s): E11.9 - Type 2 diabetes mellitus without complications; Z79.4 - nursing home (current) use of insulin (2) Hyperlipidemia Hyperlipidemia type: mixed hyperlipidemia Qualified Code(s): E78.2 - Mixed hyperlipidemia (3) Hypothyroid Hypothyroidism type: acquired Qualified Code(s): E03.9 - Hypothyroidism, unspecified (4) GERD (gastroesophageal reflux disease) Esophagitis presence: esophagitis presence not specified Qualified Code(s): K21.9 - Gastro-esophageal reflux disease without esophagitis
[2021-05-13] MEDS: LEVOTHYROXINE SODIUM 50 MCG TABLET PO SCH (07:06)
[2021-05-13] MEDS: INSULIN ASPART 100 UNITS/ML 3 ML PEN SC SCH ×4 (08:31→20:20)
[2021-05-13] MEDS: INSULIN HUMAN NPH SC SCH ×2 (08:32→17:21)
[2021-05-13] MEDS: MAGNESIUM OXIDE 400 MG TAB PO SCH ×2 (08:33→20:24)
[2021-05-13] MEDS: TAMSULOSIN HCL 0.4 MG CAP PO SCH (08:33)
[2021-05-13] MEDS: AMOXICILLIN/CLAVULANATE 875 MG TAB PO SCH ×2 (08:33→17:21)
[2021-05-13] MEDS: DOCUSATE SODIUM 100 MG CAP PO SCH ×2 (08:33→20:25)
[2021-05-13] MEDS: PANTOprazole 40 MG TAB PO SCH (08:34)
[2021-05-13] MEDS: lisinopril 5 MG TAB PO SCH (08:34)
[2021-05-13] MEDS: FINASTERIDE 5 MG TAB PO SCH (08:34)
[2021-05-13] MEDS: CLOPIDOGREL BISULFATE 75 MG TAB PO SCH (08:34)
[2021-05-13] MEDS: PREGABALIN 100 MG CAP PO SCH ×3 (08:34→20:24)
[2021-05-13] MEDS: CARBIDOPA/LEVODOPA 25/100MG TAB PO SCH ×3 (08:34→20:25)
[2021-05-13] MEDS: APIXABAN 2.5 MG TAB PO SCH ×2 (08:34→20:26)
[2021-05-13] MEDS: DULoxetine HCL 60 MG CAP PO SCH (08:34)
[2021-05-13] MEDS: FAMOTIDINE 20 MG TAB PO SCH ×2 (08:37→20:24)
[2021-05-13] MEDS: FLUTICASONE PROPIONATE NA SPR 16 GM BTL SCH (08:38)
[2021-05-13] MEDS: CALCIUM POLYCARBOPHIL 625MG TAB PO SCH (08:38)
[2021-05-13] MEDS: ATORVASTATIN 40 MG TAB PO SCH (20:25)
--- NOTE | 2021-05-13 21:48 | Hospitalist Progress Note ---
Date of Service May 13, 2021 Assessment & Plan (1) Acute encephalopathy: Plan: - Patient presented with acute onset of confusion. No acute changes on CT of head or CT angiogram of head and neck or any new findings of repeat CT - Covid negative - Lyme and anaplasmosis negative - CT abd/pelvis, negative for intra-abdominal pathology specifically negative for appendicitis - RLQ is completely resolved at this point - Ammonia negative; VBG WNL - Does have sinus congestion and some tenderness when palp of the maxillary sinuses however no other findings to suggest infection - He does have significant cerebrovascular disease as evidenced by multiple recurrent strokes and encephalomalacia as well as high-grade stenoses in the cerebral vasculature on CT. - He also has a previous history earlier this year with an admission for a similar presentation which resolved with treatment of his hypertension - Most likely secondary to hypertensive encephalopathy/possible TIA? Patient was driving up to a weak ago prior to admission - Mentation seems to be at baseline currently, did review his mini-cog eval done in March with a score of 3/5 which was borderline to consider underlying dementia. No specific findings were found to explain confusion other than he did have higher BPs the night prior to the confusion. Could be hospital delirium. However is also have wide swings with blood pressures. Recommend to not over correct for blood pressure as he gets orthostatic with standing and the Hydralazine seems to last longer on him - ASA was changed to clopidogrel; continue atorvastatin 80 can consider the diagnosis is encephalopathy from hypertension with possible TIA awaiting rehab placement BP well controlled today, mental status clear (2) HTN (hypertension): Plan: - With significant elevated blood pressures on arrival in the 200s over 110s- with likely hypertensive encephalopathy - Increased lisinopril to 15 mg daily with good blood pressure response CHAUNCEY hose to help with vascular return - Monitor orthostatics and monitor; would rather let his BP run slightly higher 140-150 given the orthostasis BP well controlled today, SBP 120-160 (3) Atrial fibrillation: Plan: - Permanent atrial fibrillation; Rate controlled - Continue apixaban for anticoagulation - He is not on any AV chris blockade (4) BPH (benign prostatic hyperplasia): Plan: - No acute issues - Continue home finasteride, tamsulosin (5) Brainstem stroke: Plan: - History of multiple previous strokes seen on CT - Continue apixaban, adding clopidogrel in place of aspirin, high intensity atorvastatin - Blood pressure control (6) Coronary artery disease: Plan: - Status post CABG - No acute issues, troponin is negative, no chest pain, no ischemic changes on ECG - Continue Plavix and statin - He is not on a [id number] reason - but BP and orthostasis likely would not allow for this (7) Diabetic neuropathy: Plan: - Continue home pregabalin (8) DM type 2 (diabetes mellitus, type 2): Plan: - Hemoglobin A1c 7.2% in 08/2020-very well controlled for age and comorbidities (9) GERD (gastroesophageal reflux disease): Plan: - No acute issues - Continue home famotidine (10) Hyperlipidemia: Plan: - Continue high intensity statin (11) Hypothyroid: Plan: - TSH is WNL - Continue home levothyroxine (12) Stage III chronic kidney disease: Plan: - Creatinine baseline around 1.45 - currently at baseline -Avoid nephrotoxins; renally dose meds when appropriate - Follow BMP (13) Memory impairment: Plan: - 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 (14) Thrombocytopenia: Plan: - chronic no evidence of hepatosplenomegaly on abdominal imaging in the last several years - B12 level was normal 2019 - Monitor CBC occasionally (15) Depression: Plan: - Continue home Cymbalta (16) DVT prophylaxis: Plan: Apixaban Disposition- - Awaiting to here for approval for rehab Admission and Anticipated Discharge Date Admission Date: May 06, 2021 Subjective patient doing well, no major issues says he has wax in left ear, no wax on my exam he says he will need his hearing aide from his son he is eating well, no chest pain, no fever, no dyspnea awaiting SNF placement BP reasonably well controlled today, 120-160s systolic, no low BP Review of Systems Review of Systems: All systems reviewed & are unremarkable except as noted in Subjective Physical Exam Physical Exam: General: well developed, well nourished, elderly male, no acute distress, comfortable EENT: hard of hearing Neck: supple, trachea midline, normal thyroid Lungs: clear to auscultation bilaterally, normal respiratory effort, no accessory muscle use, no distress Heart: regular S1 and S2, no murmur, peripheral pulses normal, capillary refill normal, no edema Abdomen: soft, NT, ND, + BS, no hepatomegaly, normal to percussion Extremities: normal in appearance, no cyanosis, no petechiae, strength is diminished in general, cannot stand/transfer without assistance Neuro: awake, cooperative, moves all extremities, no focal motor deficits, CN II-XII intact, sensation in extremities intact, normal speech Skin: warm, dry, no rash, normal turgor Psych: Awake, alert oriented to person and place Results & Data Results & Data ([facility]) Vital Signs (Past 12 Hours) Vital Signs Temp Pulse Pulse Resp BP BP Pulse Ox 05/13/21 19:17 36.9 C 61 19 123/84 95 05/13/21 15:48 36.4 C L 69 20 159/94 H 96 05/13/21 15:00 61 Laboratory Results Laboratory Results - last 24 hr 05/13/21 05/13/21 05/13/21 07:22 11:11 16:45 POC Glucose 94 220 H 133 H 05/13/21 19:58 POC Glucose 172 H Medications Administered Current Inpatient Medications Acetaminophen (Acetaminophen 325 Mg Tab) 650 mg PO Q4H PRN PRN Reason: Pain or Fever Stop: 06/03/21 20:07 Last Admin: 05/08/21 10:49 Dose: 650 mg Documented by: Amoxicillin/Clavulanate Potassium (Amoxicillin/Clavulanate 875 Mg Tab) 1 tab PO BIDM [facility] Stop: 05/20/21 13:14 Last Admin: 05/13/21 17:21 Dose: 1 tab Documented by: Apixaban (Apixaban 2.5 Mg Tab) 2.5 mg PO BID [facility] Stop: 06/03/21 20:59 Last Admin: 05/13/21 20:26 Dose: 2.5 mg Documented by: Atorvastatin Calcium (Atorvastatin 40 Mg Tab) 80 mg PO HS [facility] Stop: 06/03/21 20:59 Last Admin: 05/13/21 20:25 Dose: 80 mg Documented by: Calcium Polycarbophil (Calcium Polycarbophil 625mg Tab) 1,250 mg PO DAILY [facility] Stop: 06/04/21 08:59 Last Admin: 05/13/21 08:38 Dose: 1,250 mg Documented by: Carbidopa/Levodopa (Carbidopa/Levodopa 25/100mg Tab) 0.5 tab PO TID [facility] Stop: 06/03/21 20:59 Last Admin: 05/13/21 20:25 Dose: 0.5 tab Documented by: Clopidogrel Bisulfate (Clopidogrel Bisulfate 75 Mg Tab) 75 mg PO QAM [facility] Stop: 06/06/21 08:59 Last Admin: 05/13/21 08:34 Dose: 75 mg Documented by: Dextrose (Dextrose 50% 50 Ml Syringe) 25 - 50 ml IV UD PRN; Protocol PRN Reason: Hypoglycemia Protocol Stop: 06/03/21 20:07 Diclofenac Sodium (Diclofenac Sod 1% Gel 100 Gm Tube) 4 gm EXT QID PRN PRN Reason: Pain Stop: 06/03/21 20:59 Docusate Sodium (Docusate Sodium 100 Mg Cap) 100 mg PO BID [facility] Stop: 06/03/21 20:59 Last Admin: 05/13/21 20:25 Dose: 100 mg Documented by: Duloxetine HCl (Duloxetine Hcl 60 Mg Cap) 60 mg PO DAILY [facility] Stop: 06/04/21 08:59 Last Admin: 05/13/21 08:34 Dose: 60 mg Documented by: Famotidine (Famotidine 20 Mg Tab) 20 mg PO BID [facility] Stop: 06/03/21 20:59 Last Admin: 05/13/21 20:24 Dose: 20 mg Documented by: Finasteride (Finasteride 5 Mg Tab) 5 mg PO QAM [facility] Stop: 06/04/21 08:59 Last Admin: 05/13/21 08:34 Dose: 5 mg Documented by: Fluticasone Propionate (Fluticasone Propionate Na Spr 16 Gm Btl) 2 sprays NA DAILY [facility] Stop: 06/10/21 18:44 Last Admin: 05/13/21 08:38 Dose: 2 sprays Documented by: Glucagon (Glucagon For Inj 1 Mg Vial) 1 mg SQ UD PRN; Protocol PRN Reason: Hypoglycemia Protocol Stop: 06/03/21 20:07 Glucose (Glucose 10 Tabs/Tube) 4 - 8 tabs PO UD PRN; Protocol PRN Reason: Hypoglycemia Protocol Stop: 06/03/21 20:07 Glucose (Glucose 40% Gel 15 Gm Tube) 15 - 30 gm PO UD PRN; Protocol PRN Reason: Hypoglycemia Protocol Stop: 06/03/21 20:07 Insulin Aspart (Insulin Aspart 100 Units/Ml 3 Ml Pen) 0 units SC ACHS [facility] Stop: 06/03/21 20:59 Last Admin: 05/13/21 20:20 Dose: 2 units Documented by: Insulin Human NPH (Insulin Human Nph) 10 units SC BIDM [facility] Stop: 06/03/21 20:59 Last Admin: 05/13/21 17:21 Dose: 10 units Documented by: Levothyroxine Sodium (Levothyroxine Sodium 50 Mcg Tablet) 50 mcg PO DAILYBB [facility] Stop: 06/04/21 06:29 Last Admin: 05/13/21 07:06 Dose: 50 mcg Documented by: Lisinopril (Lisinopril 5 Mg Tab) 15 mg PO QAM [facility] Stop: 06/08/21 08:59 Last Admin: 05/13/21 08:34 Dose: 15 mg Documented by: Magnesium Oxide (Magnesium Oxide 400 Mg Tab) 400 mg PO BID [facility] Stop: 06/03/21 20:59 Last Admin: 05/13/21 20:24 Dose: 400 mg Documented by: Miscellaneous (Carbohydrates For Hypoglycemia ) 15 - 30 gm PO UD PRN PRN Reason: Hypoglycemia Protocol Stop: 06/03/21 20:07 Ondansetron HCl (Ondansetron Inj 2 Mg/Ml 2 Ml Vial) 4 mg IV Q6H PRN PRN Reason: Nausea Stop: 06/03/21 20:07 Last Admin: 05/04/21 22:14 Dose: 4 mg Documented by: Pantoprazole Sodium (Pantoprazole 40 Mg Tab) 40 mg PO QAM [facility] Stop: 06/04/21 08:59 Last Admin: 05/13/21 08:34 Dose: 40 mg Documented by: Polyethylene Glycol (Polyethylene (Miralax) 17 Gm Pack) 17 gm PO DAILY PRN PRN Reason: Constipation Stop: 06/03/21 20:07 Pregabalin (Pregabalin 100 Mg Cap) 100 mg PO TID [facility] Stop: 06/03/21 20:59 Last Admin: 05/13/21 20:24 Dose: 100 mg Documented by: Tamsulosin HCl (Tamsulosin Hcl 0.4 Mg Cap) 0.4 mg PO QAM [facility] Stop: 06/04/21 08:59 Last Admin: 05/13/21 08:33 Dose: 0.4 mg Documented by: PG Care Time/CCT Total # of Minutes Spent Total Time Spent with Patient: Total time spent is greater than 50% in coordination of care (as documented) at patient's floor/unit and/or counseling patient: Coding Level of Care Code 91462 Subseq Hosp Care Lvl 2 Diagnoses Acute encephalopathy G93.40 HTN (hypertension) I10 Atrial fibrillation I48.91 BPH (benign prostatic hyperplasia) N40.0 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 Coronary artery disease I25.10 Diabetic neuropathy E11.40 DM type 2 (diabetes mellitus, type 2) E11.9; Z79.4 Diabetes mellitus termite treater insulin use: with termite treater use Diabetes mellitus complication status: without complication GERD (gastroesophageal reflux disease) K21.9 Esophagitis presence: esophagitis presence not specified Hyperlipidemia E78.2 Hyperlipidemia type: mixed hyperlipidemia Hypothyroid E03.9 Hypothyroidism type: acquired Stage III chronic kidney disease N18.3 Memory impairment R41.3 Thrombocytopenia D69.6 Depression F32.9 DVT prophylaxis Z29.9 (1) DM type 2 (diabetes mellitus, type 2) Diabetes mellitus shelter insulin use: with termite treater use Diabetes mellitus complication status: without complication Qualified Code(s): E11.9 - Type 2 diabetes mellitus without complications; Z79.4 - snf (current) use of insulin (2) GERD (gastroesophageal reflux disease) Esophagitis presence: esophagitis presence not specified Qualified Code(s): K21.9 - Gastro-esophageal reflux disease without esophagitis (3) Hyperlipidemia Hyperlipidemia type: mixed hyperlipidemia Qualified Code(s): E78.2 - Mixed hyperlipidemia (4) Hypothyroid Hypothyroidism type: acquired Qualified Code(s): E03.9 - Hypothyroidism, unspecified
[2021-05-14] MEDS: LEVOTHYROXINE SODIUM 50 MCG TABLET PO SCH (06:29)
[2021-05-14] MEDS: CALCIUM POLYCARBOPHIL 625MG TAB PO SCH (08:37)
[2021-05-14] MEDS: APIXABAN 2.5 MG TAB PO SCH ×2 (08:37→20:43)
[2021-05-14] MEDS: AMOXICILLIN/CLAVULANATE 875 MG TAB PO SCH ×2 (08:37→17:12)
[2021-05-14] MEDS: DULoxetine HCL 60 MG CAP PO SCH (08:38)
[2021-05-14] MEDS: CLOPIDOGREL BISULFATE 75 MG TAB PO SCH (08:38)
[2021-05-14] MEDS: CARBIDOPA/LEVODOPA 25/100MG TAB PO SCH ×3 (08:38→20:44)
[2021-05-14] MEDS: DOCUSATE SODIUM 100 MG CAP PO SCH ×2 (08:38→20:44)
[2021-05-14] MEDS: FINASTERIDE 5 MG TAB PO SCH (08:39)
[2021-05-14] MEDS: MAGNESIUM OXIDE 400 MG TAB PO SCH ×2 (08:39→20:42)
[2021-05-14] MEDS: FLUTICASONE PROPIONATE NA SPR 16 GM BTL SCH (08:39)
[2021-05-14] MEDS: PANTOprazole 40 MG TAB PO SCH (08:39)
[2021-05-14] MEDS: FAMOTIDINE 20 MG TAB PO SCH ×2 (08:39→20:45)
[2021-05-14] MEDS: TAMSULOSIN HCL 0.4 MG CAP PO SCH (08:40)
[2021-05-14] MEDS: PREGABALIN 100 MG CAP PO SCH ×3 (08:40→23:03)
[2021-05-14] MEDS: INSULIN HUMAN NPH SC SCH ×2 (08:44→17:15)
[2021-05-14] MEDS: INSULIN ASPART 100 UNITS/ML 3 ML PEN SC SCH ×4 (08:44→20:49)
[2021-05-14] MEDS: lisinopril 5 MG TAB PO SCH (10:51)
--- NOTE | 2021-05-14 16:53 | Hospitalist Progress Note ---
Date of Service May 14, 2021 Assessment & Plan (1) Acute encephalopathy: Plan: - Patient presented with acute onset of confusion. No acute changes on CT of head or CT angiogram of head and neck or any new findings of repeat CT - Covid negative - Lyme and anaplasmosis negative - CT abd/pelvis, negative for intra-abdominal pathology specifically negative for appendicitis - RLQ is completely resolved at this point - Ammonia negative; VBG WNL - Does have sinus congestion and some tenderness when palp of the maxillary sinuses however no other findings to suggest infection, and is now being treated with Augmentin empirically - He does have significant cerebrovascular disease as evidenced by multiple recurrent strokes and encephalomalacia as well as high-grade stenoses in the cerebral vasculature on CT. - He also has a previous history earlier this year with an admission for a similar presentation which resolved with treatment of his hypertension - Most likely secondary to hypertensive encephalopathy/possible TIA? Patient was driving up to a weak ago prior to admission - Mentation seems to be at baseline currently, did review his mini-cog eval done in March with a score of 3/5 which was borderline to consider underlying dementia. No specific findings were found to explain confusion other than he did have higher BPs the night prior to the confusion. Could be hospital delirium. However is also have wide swings with blood pressures. Recommend to not over correct for blood pressure as he gets orthostatic with standing and the Hydralazine seems to last longer on him -The orthostasis could be due to tamsulosin though-we will hold this and should be able to increase the lisinopril further than - ASA was changed to clopidogrel; continue atorvastatin 80 can consider the diagnosis is encephalopathy from hypertension with possible TIA awaiting rehab placement (2) HTN (hypertension): Plan: - With significant elevated blood pressures on arrival in the 200s over 110s- with likely hypertensive encephalopathy - Increased lisinopril to 15 mg daily with good blood pressure response CHAUNCEY hose to help with vascular return - Monitor orthostatics and monitor; would rather let his BP run slightly higher 140-150 given the orthostasis and discontinue the tamsulosin as above BP more elevated today-May need to increase lisinopril to 20 mg daily after holding tamsulosin for orthostasis (3) Atrial fibrillation: Plan: - Permanent atrial fibrillation; Rate controlled - Continue apixaban for anticoagulation - He is not on any AV chris blockade -Okay to downgrade off telemetry (4) BPH (benign prostatic hyperplasia): Plan: - No acute issues - Continue home finasteride, but discontinuing for orthostasis as above tamsulosin (5) Brainstem stroke: Plan: - History of multiple previous strokes seen on CT - Continue apixaban, adding clopidogrel in place of aspirin, high intensity atorvastatin - Blood pressure control (6) Coronary artery disease: Plan: - Status post CABG - No acute issues, troponin is negative, no chest pain, no ischemic changes on ECG - Continue Plavix and statin - He is not on a [id number]-[id number] reason - but BP and orthostasis likely would not allow for this (7) Diabetic neuropathy: Plan: - Continue home pregabalin (8) DM type 2 (diabetes mellitus, type 2): Plan: - Hemoglobin A1c 7.2% in 08/2020-very well controlled for age and comorbidities With some hyperglycemia with glucose in the 190s to 200s still the last 24 hours-increase NPH to 12 units twice daily Home dose is actually 20 units twice daily of NPH (9) GERD (gastroesophageal reflux disease): Plan: - No acute issues - Continue home famotidine (10) Hyperlipidemia: Plan: - Continue high intensity statin (11) Hypothyroid: Plan: - TSH is WNL - Continue home levothyroxine (12) Stage III chronic kidney disease: Plan: - Creatinine baseline around 1.45 - currently at baseline -Avoid nephrotoxins; renally dose meds when appropriate - Follow BMP periodically (13) Memory impairment: Plan: - 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 He is mostly complaining of lightheadedness with standing that goes away with lying back down. He is also upset that his son brought him in new batteries for his hearing aid but he still cannot hear anything out of it. Denies chest pain or shortness of breath except when he walked in the hallways he said he did feel little short of breath. He is eating and drinking. He wants to know when he is leaving the hospital and going to rehab. Review of Systems Review of Systems: All systems reviewed & are unremarkable except as noted in HPI & below Physical Exam Constitutional: WD/WN, vitals as above Eyes: PERRL, conjunctivae normal, anicteric sclerae EOM intact bilaterally; no anisocoria and no nystagmus ENMT: external ear and nose normal, oropharynx normal Ears: + hearing impairment (Severe) Neck: trachea midline, no thyromegaly Respiratory: normal respiratory effort, lungs clear to auscultation Cardiovascular: Rate/Rhythm: regular rate and + irregularly irregular Extremities: no calf tenderness and no edema Chest (Breasts): Chest: + abnormal inspection of chest (Midline sternotomy scar present) Gastrointestinal (Abdomen): normal bowel sounds, soft, nontender, no hepatosplenomegaly Musculoskeletal: Extremities: extremities normal to inspection; no cyanosis and no clubbing Skin: no rashes, warm and dry Neurologic: CN's II-XI intact bilaterally (Except very slight flattening of right nasolabial fold), moves all extremities and awake; no focal motor deficits Speech / Cognition: normal speech and no expressive aphasia Motor/Sensory: no tremor, no pronator drift and no sensory deficit (Decreased sensation to light touch in feet bilaterally) Psychiatric: Orientation: alert, oriented x 3 and cooperative Lymphatic: no lymphedema Results & Data Results & Data ([facility]) Vital Signs (Past 12 Hours) Vital Signs Temp Pulse Pulse Resp BP Pulse Ox 05/14/21 15:57 71 05/14/21 15:26 36.5 C 66 18 176/89 H 98 05/14/21 11:19 36 C L 76 19 143/89 H 98 05/14/21 07:50 36.4 C L 68 18 153/97 H 99 05/14/21 06:17 66 Laboratory Results 05/14/21 05/14/21 05/14/21 Range/Units 16:46 11:20 07:49 POC Glucose 174 H 194 H 94 (70-99) mg/dl 05/13/21 Range/Units 19:58 POC Glucose 172 H (70-99) mg/dl PG Care Time/CCT Total # of Minutes Spent Total Time Spent with Patient: Total time spent is greater than 50% in coordi nation of care (as documented) at patient's floor/unit and/or counseling patient: Coding Level of Care Code 04620 Subseq Hosp Care Lvl 2 Diagnoses Acute encephalopathy G93.40 HTN (hypertension) I10 Atrial fibrillation I48.91 BPH (benign prostatic hyperplasia) N40.0 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 Coronary artery disease I25.10 Diabetic neuropathy E11.40 DM type 2 (diabetes mellitus, type 2) E11.9; Z79.4 Diabetes mellitus longterm insulin use: with longterm use Diabetes mellitus complication status: without complication GERD (gastroesophageal reflux disease) K21.9 Esophagitis presence: esophagitis presence not specified Hyperlipidemia E78.2 Hyperlipidemia type: mixed hyperlipidemia Hypothyroid E03.9 Hypothyroidism type: acquired Stage III chronic kidney disease N18.3 Memory impairment R41.3 Thrombocytopenia D69.6 Depression F32.9 DVT prophylaxis Z29.9 (1) DM type 2 (diabetes mellitus, type 2) Diabetes mellitus longterm insulin use: with longterm use Diabetes mellitus complication status: without complication Qualified Code(s): E11.9 - Type 2 diabetes mellitus without complications; Z79.4 - [facility] (current) use of insulin (2) GERD (gastroesophageal reflux disease) Esophagitis presence: esophagitis presence not specified Qualified Code(s): K21.9 - Gastro-esophageal reflux disease without esophagitis (3) Hyperlipidemia Hyperlipidemia type: mixed hyperlipidemia Qualified Code(s): E78.2 - Mixed hyperlipidemia (4) Hypothyroid Hypothyroidism type: acquired Qualified Code(s): E03.9 - Hypothyroidism, unspecified
[2021-05-14] MEDS: ATORVASTATIN 40 MG TAB PO SCH (20:42)
[2021-05-14] MEDS: CARBAMIDE PEROXIDE 6.5% 15 ML BTL OTL SCH (22:54)
[2021-05-15] MEDS: LEVOTHYROXINE SODIUM 50 MCG TABLET PO SCH (06:01)
[2021-05-15] MEDS: APIXABAN 2.5 MG TAB PO SCH ×2 (09:59→19:55)
[2021-05-15] MEDS: CLOPIDOGREL BISULFATE 75 MG TAB PO SCH (09:59)
[2021-05-15] MEDS: MAGNESIUM OXIDE 400 MG TAB PO SCH ×2 (09:59→19:55)
[2021-05-15] MEDS: CALCIUM POLYCARBOPHIL 625MG TAB PO SCH (10:00)
[2021-05-15] MEDS: PANTOprazole 40 MG TAB PO SCH (10:00)
[2021-05-15] MEDS: FAMOTIDINE 20 MG TAB PO SCH ×2 (10:00→19:53)
[2021-05-15] MEDS: FINASTERIDE 5 MG TAB PO SCH (10:00)
[2021-05-15] MEDS: DOCUSATE SODIUM 100 MG CAP PO SCH ×2 (10:01→19:54)
[2021-05-15] MEDS: DULoxetine HCL 60 MG CAP PO SCH (10:01)
[2021-05-15] MEDS: lisinopril 5 MG TAB PO SCH (10:02)
[2021-05-15] MEDS: CARBIDOPA/LEVODOPA 25/100MG TAB PO SCH ×3 (10:02→19:55)
[2021-05-15] MEDS: FLUTICASONE PROPIONATE NA SPR 16 GM BTL SCH (10:03)
[2021-05-15] MEDS: AMOXICILLIN/CLAVULANATE 875 MG TAB PO SCH ×2 (10:03→17:40)
[2021-05-15] MEDS: CARBAMIDE PEROXIDE 6.5% 15 ML BTL OTL SCH ×2 (10:03→19:56)
[2021-05-15] MEDS: INSULIN HUMAN NPH SC SCH ×2 (10:04→17:42)
[2021-05-15] MEDS: INSULIN ASPART 100 UNITS/ML 3 ML PEN SC SCH ×4 (10:06→21:23)
[2021-05-15] MEDS: PREGABALIN 100 MG CAP PO SCH ×3 (10:08→20:01)
--- NOTE | 2021-05-15 13:59 | Hospitalist Progress Note ---
Date of Service May 15, 2021 Assessment & Plan (1) Acute encephalopathy: Plan: - Patient presented with acute onset of confusion. No acute changes on CT of head or CT angiogram of head and neck or any new findings of repeat CT - Covid negative - Lyme and anaplasmosis negative - CT abd/pelvis, negative for intra-abdominal pathology specifically negative for appendicitis - RLQ is completely resolved at this point - Ammonia negative; VBG WNL - Does have sinus congestion and some tenderness when palp of the maxillary sinuses however no other findings to suggest infection, and is now being treated with Augmentin empirically-last day of treatment 05/17 - He does have significant cerebrovascular disease as evidenced by multiple recurrent strokes and encephalomalacia as well as high-grade stenoses in the cerebral vasculature on CT. - He also has a previous history earlier this year with an admission for a similar presentation which resolved with treatment of his hypertension - Most likely secondary to hypertensive encephalopathy/possible TIA? Patient was driving up to a weak ago prior to admission - Mentation seems to be at baseline currently, did review his mini-cog eval done in March with a score of 3/5 which was borderline to consider underlying dementia. No specific findings were found to explain confusion other than he did have higher BPs the night prior to the confusion. Could be hospital delirium. However is also have wide swings with blood pressures. Recommend to not over correct for blood pressure as he gets orthostatic with standing and the Hydralazine seems to last longer on him -The orthostasis could be due to tamsulosin though-we will hold this and should be able to increase the lisinopril further than - ASA was changed to clopidogrel; continue atorvastatin 80 can consider the diagnosis is encephalopathy from hypertension with possible TIA Still awaiting rehab placement (2) HTN (hypertension): Plan: - With significant elevated blood pressures on arrival in the 200s over 110s- with likely hypertensive encephalopathy - Increased lisinopril to 15 mg daily with good blood pressure response CHAUNCEY hose to help with vascular return - Monitor orthostatics and monitor; would rather let his BP run slightly higher 140-150 given the orthostasis and discontinue the tamsulosin as above Continue holding tamsulosin for orthostasis (3) Atrial fibrillation: Plan: - Permanent atrial fibrillation; Rate controlled - Continue apixaban for anticoagulation - He is not on any AV chris blockade Has since been downgraded off telemetry (4) BPH (benign prostatic hyperplasia): Plan: - No acute issues - Continue home finasteride, but discontinuing for orthostasis as above tamsulosin (5) Brainstem stroke: Plan: - History of multiple previous strokes seen on CT - Continue apixaban, adding clopidogrel in place of aspirin, high intensity atorvastatin - Blood pressure control (6) Coronary artery disease: Plan: - Status post CABG - No acute issues, troponin is negative, no chest pain, no ischemic changes on ECG - Continue Plavix and statin - He is not on a [id number] reason - but BP and orthostasis likely would not allow for this (7) Diabetic neuropathy: Plan: - Continue home pregabalin (8) DM type 2 (diabetes mellitus, type 2): Plan: - Hemoglobin A1c 7.2% in 08/2020-very well controlled for age and comorbidities With some hyperglycemia with glucose in the 190s to 200s still the last 24 hours-increase NPH to 12 units twice daily Home dose is actually 20 units twice daily of NPH (9) GERD (gastroesophageal reflux disease): Plan: - No acute issues - Continue home famotidine (10) Hyperlipidemia: Plan: - Continue high intensity statin (11) Hypothyroid: Plan: - TSH is WNL - Continue home levothyroxine (12) Stage III chronic kidney disease: Plan: - Creatinine baseline around 1.45 - currently at baseline -Avoid nephrotoxins; renally dose meds when appropriate - Follow BMP periodically (13) Memory impairment: Plan: - 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 This medication can also cause orthostasis but will continue for now (14) Thrombocytopenia: Plan: - chronic no evidence of hepatosplenomegaly on abdominal imaging in the last several years - B12 level was normal 2019 - Monitor CBC occasionally (15) Depression: Plan: - Continue home Cymbalta (16) DVT prophylaxis: Plan: Apixaban Disposition- -He has been accepted to [facility], but still awaiting insurance authorization hopefully for discharge on 05/16 Admission and Anticipated Discharge Date Admission Date: May 06, 2021 Subjective Other than being frustrated with his hearing aid not working, patient has no complaints. He is doing well, moving his bowels, eating. He is anxious for discharge to rehab Review of Systems Review of Systems: All systems reviewed & are unremarkable except as noted in HPI & below Physical Exam Constitutional: WD/WN, vitals as above ENMT: Ears: + hearing impairment (Severe) Neck: trachea midline, no thyromegaly Respiratory: normal respiratory effort, lungs clear to auscultation Cardiovascular: Rate/Rhythm: regular rate and + irregularly irregular Extremities: no calf tenderness and no edema Chest (Breasts): Chest: + abnormal inspection of chest (Midline sternotomy scar present) Gastrointestinal (Abdomen): normal bowel sounds, soft, nontender, no hepatosplenomegaly Musculoskeletal: Extremities: extremities normal to inspection; no cyanosis and no clubbing Skin: no rashes, warm and dry Neurologic: moves all extremities and awake Speech / Cognition: normal speech and no expressive aphasia Motor/Sensory: no tremor Psychiatric: Orientation: alert, oriented x 3 and cooperative Lymphatic: no lymphedema Results & Data Results & Data ([facility]) Vital Signs (Past 12 Hours) Vital Signs Temp Pulse Resp BP BP Pulse Ox 05/15/21 11:00 36.4 C L 75 20 110/73 98 05/15/21 07:07 36.5 C 70 18 155/88 H 98 Laboratory Results 05/15/21 05/15/21 05/14/21 Range/Units 11:27 07:34 20:05 POC Glucose 168 H 102 H 108 H (70-99) mg/dl 05/14/21 Range/Units 16:46 POC Glucose 174 H (70-99) mg/dl PG Care Time/CCT Total # of Minutes Spent Total Time Spent with Patient: Total time spent is greater than 50% in coordination of care (as documented) at patient's floor/unit and/or counseling patient: Coding Level of Care Code 30641 Subseq Hosp Care Lvl 2 Diagnoses Acute encephalopathy G93.40 HTN (hypertension) I10 Atrial fibrillation I48.91 BPH (benign prostatic hyperplasia) N40.0 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 Coronary artery disease I25.10 Diabetic neuropathy E11.40 DM type 2 (diabetes mellitus, type 2) E11.9; Z79.4 Diabetes mellitus termination clerk insulin use: with termination clerk use Diabetes mellitus complication status: without complication GERD (gastroesophageal reflux disease) K21.9 Esophagitis presence: esophagitis presence not specified Hyperlipidemia E78.2 Hyperlipidemia type: mixed hyperlipidemia Hypothyroid E03.9 Hypothyroidism type: acquired Stage III chronic kidney disease N18.3 Memory impairment R41.3 Thrombocytopenia D69.6 Depression F32.9 DVT prophylaxis Z29.9 (1) DM type 2 (diabetes mellitus, type 2) Diabetes mellitus termination clerk insulin use: with snf use Diabetes mellitus complication status: without complication Qualified Code(s): E11.9 - Type 2 diabetes mellitus without complications; Z79.4 - residential (current) use of insulin (2) GERD (gastroesophageal reflux disease) Esophagitis presence: esophagitis presence not specified Qualified Code(s): K21.9 - Gastro-esophageal reflux disease without esophagitis (3) Hyperlipidemia Hyperlipidemia type: mixed hyperlipidemia Qualified Code(s): E78.2 - Mixed hyperlipidemia (4) Hypothyroid Hypothyroidism type: acquired Qualified Code(s): E03.9 - Hypothyroidism, unspecified
[2021-05-15] MEDS: ATORVASTATIN 40 MG TAB PO SCH (19:54)
[2021-05-16] MEDS: LEVOTHYROXINE SODIUM 50 MCG TABLET PO SCH (06:08)
[2021-05-16] MEDS: CLOPIDOGREL BISULFATE 75 MG TAB PO SCH (08:22)
[2021-05-16] MEDS: PANTOprazole 40 MG TAB PO SCH (08:22)
[2021-05-16] MEDS: DOCUSATE SODIUM 100 MG CAP PO SCH ×2 (08:22→20:53)
[2021-05-16] MEDS: CARBIDOPA/LEVODOPA 25/100MG TAB PO SCH ×3 (08:22→20:54)
[2021-05-16] MEDS: lisinopril 5 MG TAB PO SCH (08:22)
[2021-05-16] MEDS: PREGABALIN 100 MG CAP PO SCH ×3 (08:22→20:53)
[2021-05-16] MEDS: FAMOTIDINE 20 MG TAB PO SCH ×2 (08:22→20:55)
[2021-05-16] MEDS: DULoxetine HCL 60 MG CAP PO SCH (08:22)
[2021-05-16] MEDS: CALCIUM POLYCARBOPHIL 625MG TAB PO SCH (08:22)
[2021-05-16] MEDS: APIXABAN 2.5 MG TAB PO SCH ×2 (08:22→20:54)
[2021-05-16] MEDS: FINASTERIDE 5 MG TAB PO SCH (08:23)
[2021-05-16] MEDS: AMOXICILLIN/CLAVULANATE 875 MG TAB PO SCH ×2 (08:23→17:09)
[2021-05-16] MEDS: FLUTICASONE PROPIONATE NA SPR 16 GM BTL SCH (08:23)
[2021-05-16] MEDS: CARBAMIDE PEROXIDE 6.5% 15 ML BTL OTL SCH ×2 (08:23→20:55)
[2021-05-16] MEDS: INSULIN HUMAN NPH SC SCH ×2 (08:23→17:10)
[2021-05-16] MEDS: MAGNESIUM OXIDE 400 MG TAB PO SCH ×2 (08:23→20:53)
[2021-05-16] MEDS: INSULIN ASPART 100 UNITS/ML 3 ML PEN SC SCH ×4 (08:23→20:57)
--- NOTE | 2021-05-16 16:16 | Hospitalist Progress Note ---
Date of Service May 16, 2021 Assessment & Plan (1) Acute encephalopathy: Plan: - Patient presented with acute onset of confusion. No acute changes on CT of head or CT angiogram of head and neck or any new findings on of the head repeat CT several days later - Covid negative - Lyme and anaplasmosis negative - CT abd/pelvis, negative for intra-abdominal pathology specifically negative for appendicitis - RLQ is completely resolved at this point - Ammonia negative; VBG WNL - Does have sinus congestion and some tenderness when palp of the maxillary sinuses however no other findings to suggest infection, and is now being treated with Augmentin empirically-last day of treatment 05/17 - He does have significant cerebrovascular disease as evidenced by multiple recurrent strokes and encephalomalacia as well as high-grade stenoses in the cerebral vasculature on CT. - He also has a previous history earlier this year with an admission for a similar presentation which resolved with treatment of his hypertension - Most likely secondary to hypertensive encephalopathy/possible TIA? Patient was driving up to a week ago prior to admission - Mentation seems to be at baseline currently, did review his mini-cog eval done in March with a score of 3/5 which was borderline to consider underlying dementia. No specific findings were found to explain confusion other than he did have higher BPs the night prior to the confusion. Could be hospital delirium. However is also have wide swings with blood pressures. Recommend to not over correct for blood pressure as he gets orthostatic with standing and the Hydralazine seems to last longer on him -The orthostasis could be due to tamsulosin though-have since held this no longer having any orthostasis - ASA was changed to clopidogrel; continue atorvastatin 80 can consider the diagnosis is encephalopathy from hypertension with possible TIA (2) HTN (hypertension): Plan: - With significant elevated blood pressures on arrival in the 200s over 110s- with likely hypertensive encephalopathy - Increased lisinopril to 15 mg daily with good blood pressure response -Some blood pressures are now in the low normal side at this point CHAUNCEY hose to help with vascular return - Monitor orthostatics and monitor; would rather let his BP run slightly higher 140-150 given the orthostasis and discontinue the tamsulosin as above Continue holding tamsulosin for orthostasis as long as not having issues with urinary retention (3) Atrial fibrillation: Plan: - Permanent atrial fibrillation; Rate controlled - Continue apixaban for anticoagulation - He is not on any AV chris blockade Has since been downgraded off telemetry (4) BPH (benign prostatic hyperplasia): Plan: - No acute issues - Continue home finasteride, but discontinuing for orthostasis as above tamsulosin (5) Brainstem stroke: Plan: - History of multiple previous strokes seen on CT, has a baseline chronic right facial droop - Continue apixaban, added clopidogrel in place of aspirin, continue high intensity atorvastatin - Blood pressure control as above (6) Coronary artery disease: Plan: - Status post CABG - No acute issues, troponin is negative, no chest pain, no ischemic changes on ECG - Continue Plavix and statin - He is not on a [id number]-hemrldb reason - but BP and orthostasis likely would not allow for this (7) Diabetic neuropathy: Plan: - Continue home pregabalin (8) DM type 2 (diabetes mellitus, type 2): Plan: - Hemoglobin A1c 7.2% in 08/2020-very well controlled for age and comorbidities With some hyperglycemia with glucose in the 190s to 200s still the last 24 hours-increase NPH to 12 units twice daily Home dose is actually 20 units twice daily of NPH but he has not required that much here-May need reduced dose upon discharge (9) GERD (gastroesophageal reflux disease): Plan: - No acute issues - Continue home famotidine (10) Hyperlipidemia: Plan: - Continue high intensity statin (11) Hypothyroid: Plan: - TSH is WNL - Continue home levothyroxine (12) Stage III chronic kidney disease: Plan: - Creatinine baseline around 1.45 - currently at baseline -Avoid nephrotoxins; renally dose meds when appropriate - Follow BMP periodically (13) Memory impairment: Plan: - 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 Plan is now for discharged home but son can pick him up until tomorrow morning-discharge tomorrow with home health Admission and Anticipated Discharge Date Admission Date: May 06, 2021 Anticipated date of discharge: 05/17/21 Subjective Patient feeling very well today. Reports he did well with walking with physical therapy. He denies any chest pain or shortness of breath, no abdominal pain or leg pain. He is happy to hear that he will be going home tomorrow as his rehab stay was denied by insurance. Review of Systems Review of Systems: All systems reviewed & are unremarkable except as noted in HPI & below Physical Exam Constitutional: WD/WN, vitals as above Eyes: no anisocoria and no nystagmus ENMT: Ears: + hearing impairment (Severe) Neck: trachea midline, no thyromegaly Respiratory: normal respiratory effort, lungs clear to auscultation Cardiovascular: Rate/Rhythm: regular rate and + irregularly irregular Extremities: no calf tenderness and no edema Chest (Breasts): Chest: + abnormal inspection of chest (Midline sternotomy scar present) Gastrointestinal (Abdomen): normal bowel sounds, soft, nontender, no hepatosplenomegaly Musculoskeletal: Extremities: extremities normal to inspection; no cyanosis and no clubbing Skin: no rashes, warm and dry Neurologic: CN's II-XI intact bilaterally (Except chronic slight right facial droop), moves all extremities and awake Speech / Cognition: normal speech and no expressive aphasia Motor/Sensory: no tremor Psychiatric: Orientation: alert, oriented x 3 and cooperative Lymphatic: no lymphedema Results & Data Results & Data ([facility]) Vital Signs (Past 12 Hours) Vital Signs Temp Pulse Resp BP Pulse Ox 05/16/21 15:07 36.5 C 68 18 98/64 L 98 05/16/21 07:00 36.5 C 66 20 103/65 97 PG Care Time/CCT Total # of Minutes Spent Total Time Spent with Patient: Total time spent is greater than 50% in coordination of care (as documented) at patient's floor/unit and/or counseling patient: Coding Level of Care Code 08447 Subseq Hosp Care Lvl 1 Diagnoses Acute encephalopathy G93.40 HTN (hypertension) I10 Atrial fibrillation I48.91 BPH (benign prostatic hyperplasia) N40.0 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 Coronary artery disease I25.10 Diabetic neuropathy E11.40 DM type 2 (diabetes mellitus, type 2) E11.9; Z79.4 Diabetes mellitus terminal gauger insulin use: with terminal gauger use Diabetes mellitus complication status: without complication GERD (gastroesophageal reflux disease) K21.9 Esophagitis presence: esophagitis presence not specified Hyperlipidemia E78.2 Hyperlipidemia type: mixed hyperlipidemia Hypothyroid E03.9 Hypothyroidism type: acquired Stage III chronic kidney disease N18.3 Memory impairment R41.3 Thrombocytopenia D69.6 Depression F32.9 DVT prophylaxis Z29.9 (1) DM type 2 (diabetes mellitus, type 2) Diabetes mellitus senior care insulin use: with terminal gauger use Diabetes mellitus complication status: without complication Qualified Code(s): E11.9 - Type 2 diabetes mellitus without complications; Z79.4 - senior care (current) use of insulin (2) GERD (gastroesophageal reflux disease) Esophagitis presence: esophagitis presence not specified Qualified Code(s): K21.9 - Gastro-esophageal reflux disease without esophagitis (3) Hyperlipidemia Hyperlipidemia type: mixed hyperlipidemia Qualified Code(s): E78.2 - Mixed hyperlipidemia (4) Hypothyroid Hypothyroidism type: acquired Qualified Code(s): E03.9 - Hypothyroidism, unspecified
[2021-05-16] MEDS: ATORVASTATIN 40 MG TAB PO SCH (20:53)
[2021-05-17] MEDS: LEVOTHYROXINE SODIUM 50 MCG TABLET PO SCH (06:28)
[2021-05-17] MEDS: INSULIN ASPART 100 UNITS/ML 3 ML PEN SC SCH ×2 (08:23→12:03)
[2021-05-17] MEDS: FLUTICASONE PROPIONATE NA SPR 16 GM BTL SCH (08:25)
[2021-05-17] MEDS: DOCUSATE SODIUM 100 MG CAP PO SCH (08:26)
[2021-05-17] MEDS: FAMOTIDINE 20 MG TAB PO SCH (08:26)
[2021-05-17] MEDS: APIXABAN 2.5 MG TAB PO SCH (08:27)
[2021-05-17] MEDS: AMOXICILLIN/CLAVULANATE 875 MG TAB PO SCH (08:27)
[2021-05-17] MEDS: CARBIDOPA/LEVODOPA 25/100MG TAB PO SCH (08:27)
[2021-05-17] MEDS: DULoxetine HCL 60 MG CAP PO SCH (08:28)
[2021-05-17] MEDS: CALCIUM POLYCARBOPHIL 625MG TAB PO SCH (08:28)
[2021-05-17] MEDS: CLOPIDOGREL BISULFATE 75 MG TAB PO SCH (08:28)
[2021-05-17] MEDS: lisinopril 5 MG TAB PO SCH (08:28)
[2021-05-17] MEDS: PANTOprazole 40 MG TAB PO SCH (08:28)
[2021-05-17] MEDS: MAGNESIUM OXIDE 400 MG TAB PO SCH (08:29)
[2021-05-17] MEDS: CARBAMIDE PEROXIDE 6.5% 15 ML BTL OTL SCH (08:29)
[2021-05-17] MEDS: FINASTERIDE 5 MG TAB PO SCH (08:29)
[2021-05-17] MEDS: PREGABALIN 100 MG CAP PO SCH (08:31)
[2021-05-17] MEDS: INSULIN HUMAN NPH SC SCH (08:38)
--- NOTE | 2021-05-17 11:23 | Discharge Summary ---
Date of Service May 17, 2021 Admission HPI Per Admitting Provider This patient is an 85-year-old male with a history of atrial fibrillation on Eliquis, CAD status post CABG, DM 2, HTN, hypothyroidism, brainstem CVA, depression/anxiety, GERD, MCI, hyperlipidemia, CKD stage III, thrombocytopenia, and kidney stones, who presents to the ER after being found to be quite confused at home around lunchtime today. He lives with his son and abtognwh-si-ajl who last saw him well last evening around 8 PM when he went to bed. The son and wtfvauql-[id number] both left for work early this morning and when the son called home to check on his dad at 11 AM, the patient did not answer the phone. The son went home and found him quite confused standing in the hallway after he had moved all the furniture to the center of the room and could not find the bathroom which is right next to him. In the ER, the patient remained confused but did complain of some vertigo-like symptoms. He denied headache or chest pain, no shortness of breath, no nausea or abdominal pain. No difficulties with constipation or urination. His son did not notice slurred speech or weakness. The patient was able to ambulate around the house into the car. The son does note a slight facial droop on the right but Gian valenzuela this was noted previously during hospital admission. A CT of the head was performed as part of a stroke alert-it did show chronic lacunar infarcts in the basal ganglia and left thalamus as well as encephalomalacia of the right temporal lobe suggestive of chronic infarct, moderate bilateral mastoid effusions, but no acute intracranial abnormality. 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 A chest x-ray was without evidence of infection. Laboratory work-up was fairly unremarkable except for chronic thrombocytopenia and creatinine 1.45 which is his baseline. A UA was negative for infection. He was afebrile, and hypertensive. A Covid-19 test was pending at the time of admission. He will be brought in on observation for acute confusion/encephalopathy, likely hypertensive encephalopathy, for further evaluation Principal Diagnosis Hypertensive encephalopathy Discharge Exam Constitutional WD/WN, vitals as above Eyes no anisocoria and no nystagmus ENMT Ears: + hearing impairment (Severe) Neck trachea midline, no thyromegaly Respiratory normal respiratory effort, lungs clear to auscultation Cardiovascular Rate/Rhythm: regular rate and + irregularly irregular Vessels: dorsalis pedis pulses present Extremities: no calf tenderness and no edema Chest (Breasts) Chest: + abnormal inspection of chest (Midline sternotomy scar present) Gastrointestinal (Abdomen) normal bowel sounds, soft, nontender, no hepatosplenomegaly Musculoskeletal Extremities: extremities normal to inspection; no cyanosis and no clubbing Skin no rashes, warm and dry Neurologic CN's II-XI intact bilaterally (Except chronic slight right facial droop), moves all extremities and awake Speech / Cognition: normal speech and no expressive aphasia Motor/Sensory: no tremor Psychiatric Orientation: alert, oriented x 3 and cooperative Lymphatic no lymphedema Discharge Data Allergies Allergy/AdvReac Type Severity Reaction Status Date / Time hydrocodone AdvReac Mild Dizziness, Verified 05/04/21 15:17 [From Panlor Nausea (hydrocodone-acetamin)] oxycodone AdvReac Mild NAUSEA/VOMI Verified 05/04/21 15:17 TING tramadol AdvReac Mild confusion Verified 05/04/21 15:17 Consultations 05/04/21 14:45 ED Decision to Admit Stat Ordered Studies 05/04/21 12:10 CT head/brain wo con Stat 05/04/21 12:52 CT angio head w con Stat CT angio neck with con Stat 05/05/21 11:52 CT abd pelvis oral and IV con Routine 05/10/21 13:07 CT head/brain wo con Routine Hospital Course (1) Acute encephalopathy: - Patient presented with acute onset of confusion. No acute changes on CT of head or CT angiogram of head and neck or any new findings on of the head repeat CT several days later - Covid negative - Lyme and anaplasmosis negative - CT abd/pelvis, negative for intra-abdominal pathology specifically negative for appendicitis - RLQ is completely resolved at this point - Ammonia negative; VBG WNL - Does have sinus congestion and some tenderness when palp of the maxillary sinuses however no other findings to suggest infection, and is now being treated with Augmentin empirically-last day of treatment 05/17 - He does have significant cerebrovascular disease as evidenced by multiple recurrent strokes and encephalomalacia as well as high-grade stenoses in the cerebral vasculature on CT. - He also has a previous history earlier this year with an admission for a similar presentation which resolved with treatment of his hypertension - Most likely secondary to hypertensive encephalopathy/possible TIA? Patient was driving up to a week ago prior to admission - Mentation seems to be at baseline currently, did review his mini-cog eval done in March with a score of 3/5 which was borderline to consider underlying dementia. No specific findings were found to explain confusion other than he did have higher BPs the night prior to the confusion. Could be hospital delirium. However is also have wide swings with blood pressures. Recommend to not over correct for blood pressure as he gets orthostatic with standing and the Hydralazine seems to last longer on him -The orthostasis could be due to tamsulosin though-have since held this no longer having any orthostasis - ASA was changed to clopidogrel; continue atorvastatin 80 can consider the diagnosis is encephalopathy from hypertension with possible TIA (2) HTN (hypertension): - With significant elevated blood pressures on arrival in the 200s over 110s-with likely hypertensive encephalopathy - Increased lisinopril to 15 mg daily with good blood pressure response -Some blood pressures are now in the low normal side at this point CHAUNCEY hose to help with vascular return - Monitor orthostatics and monitor; would rather let his BP run slightly higher 140-150 given the orthostasis and discontinue the tamsulosin as above Continue holding tamsulosin for orthostasis as long as not having issues with urinary retention (3) Atrial fibrillation: - Permanent atrial fibrillation; Rate controlled - Continue apixaban for anticoagulation - He is not on any AV chris blockade Has since been downgraded off telemetry (4) BPH (benign prostatic hyperplasia): - No acute issues - Continue home finasteride, but discontinuing for orthostasis as above tamsulosin (5) Brainstem stroke: - History of multiple previous strokes seen on CT, has a baseline chronic right facial droop - Continue apixaban, added clopidogrel in place of aspirin, continue high intensity atorvastatin - Blood pressure control as above (6) Coronary artery disease: - Status post CABG - No acute issues, troponin is negative, no chest pain, no ischemic changes on ECG - Continue Plavix and statin - He is not on a umra-bbuykqc-hvvxxuq reason - but BP and orthostasis likely would not allow for this (7) Diabetic neuropathy: - Continue home pregabalin (8) DM type 2 (diabetes mellitus, type 2): - Hemoglobin A1c 7.2% in 08/2020-very well controlled for age and comorbidities With some hyperglycemia with glucose in the 190s to 200s still the last 24 hours-increase NPH to 12 units twice daily Home dose is actually 20 units twice daily of NPH but he has not required that much here-May need reduced dose upon discharge (9) GERD (gastroesophageal reflux disease): - No acute issues - Continue home famotidine (10) Hyperlipidemia: - Continue high intensity statin (11) Hypothyroid: - TSH is WNL - Continue home levothyroxine (12) Stage III chronic kidney disease: - Creatinine baseline around 1.45 - currently at baseline -Avoid nephrotoxins; renally dose meds when appropriate - Follow BMP periodically (13) Memory impairment: - 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 Plan is now for discharge to home with home health Total Time Total Time Spent Total Time Spent (In Minutes): 35 min Discharge Plan Discharge Items Patient Disposition: Home - Home Health Services Reason For Visit: ACUTE ENCEPHALOPATHY Discharge Diagnosis: Hypertensive Encephalopathy Condition on Discharge: Good Activity: As commented below Lifting: Gradually increase as tolerated Bathing: No limitations Exercise/Sports: Gradually increase as tolerated Weightbearing: Full weightbearing Non-emergency contact: Primary Care Provider Call non-emergency contact if: you have any medication questions and your symptoms worsen Follow-up/Referrals: Matt Comer MD [Primary Care Provider] - (Follow up within 1-2 weeks) Diet: Carb Consistent or DM2 and Heart Healthy Addtl Attending Provider Instructions: You were admitted with confusion secondary to elevated blood pressures. Your lisinopril dose was increased to 15 mg daily. You had significant improvement in your symptoms and your strength improved. Your tamsulosin was discontinued as this was contributing to some lower blood pressures with standing up. If you experience difficulty getting your urine out, please contact your primary care doctor to discuss restarting this medication. Your aspirin was discontinued in favor of starting Plavix to prevent strokes just in case your presenting symptoms were related to a TIA (mini stroke). Your insulin dosing was decreased, but if you find that your blood sugars are more elevated once you return home (greater than 180), then please discuss with your primary care physician about increasing the dose again. Please closely follow your blood pressure at home and you will have a visiting nurse to help you with this. Follow-up with your primary care physician within 1 to 2 weeks after discharge. Pending Studies at Discharge: No Stand-Alone Forms: My [facility] Medications and DC Order Prescriptions: New clopidogrel 75 mg Tablet 75 mg PO QAM Qty: 30 RF: 0 Continued atorvastatin 80 mg tablet 80 mg PO HS Qty: 90 RF: 3 finasteride 5 mg tablet 5 mg PO QAM Qty: 90 RF: 3 levothyroxine 50 mcg tablet 50 mcg PO QAM Qty: 90 RF: 3 Eliquis 2.5 mg tablet 2.5 mg PO BID Qty: 180 RF: 3 (DME) OneTouch Ultra Blue Test Strip Strip See Rx Instructions .ROUTE .MEDSUPPLY Qty: 100 RF: 5 (DME) lancets [OneTouch Delica Plus Lancet] 33 gauge misc See Rx Instructions .ROUTE .MEDSUPPLY Qty: 100 RF: 5 omeprazole 20 mg capsule,delayed release(DR/EC) 40 mg PO QAM Qty: 180 RF: 3 duloxetine 60 mg capsule,delayed release(DR/EC) 60 mg PO DAILY Qty: 90 RF: 3 (DME) blood-glucose meter [OneTouch Ultra2 Meter] Misc See Rx Instructions .ROUTE .MEDSUPPLY Qty: 1 RF: 0 magnesium oxide 400 mg magnesium tablet 400 mg PO BID Qty: 60 RF: 5 Fiber Therapy (m-cell/sugar) 2 gram/19 gram powder 2 g PO DAILY Qty: 454 RF: 0 carbidopa-levodopa [Sinemet] 25-100 mg tablet 0.5 tab PO TID Qty: 45 RF: 1 (DME) pen needle, diabetic [BD Ultra-Fine Mary Carmen Pen Needle] 32 gauge x 5/32" needle See Dose Instructions .ROUTE .MEDSUPPLY Qty: 100 RF: 3 hydrocortisone 2.5 % cream with perineal applicator 1 applic CO DAILY PRN (Reason: hemorrhoids) Qty: 30 RF: 1 pregabalin 100 mg capsule 100 mg PO TID Qty: 90 RF: 3 docusate sodium 100 mg capsule 100 mg PO BID Qty: 60 RF: 5 triamcinolone acetonide 0.1 % cream 1 applic topical BID Qty: 30 RF: 2 famotidine 20 mg tablet 20 mg PO BID Qty: 60 RF: 11 polyethylene glycol 3350 [Miralax] 17 gram/dose powder 17 g PO DAILY PRN (Reason: Constipation) RF: 0 glycerin Drops 2 drp OPHTHALMIC (EYE) BID RF: 0 diclofenac sodium 1 % gel See Rx Instructions TOP QID PRN (Reason: Pain) RF: 0 Changed lisinopril 10 mg tablet 15 mg PO QAM Qty: 45 RF: 0 Novolin 70-30 FlexPen U-100 100 unit/mL (70-30) insulin pen 12 unit SQ BID Qty: 15 RF: 5 Discontinued tamsulosin 0.4 mg capsule 0.4 mg PO QAM Qty: 90 RF: 3 aspirin 81 mg Tablet,Delayed Release (Dr/Ec) 81 mg PO DAILY RF: 0 Discharge Orders: Discharge Order (Routine); Ordered 05/17/21 Ordered By: Hazel Paniagua/Other Patient Handouts: A1C, Managing Type 2 Diabetes Admission Data Admit Date/Time: 05/06/21 15:40 Attending Provider: Hazel Saravia Admit Provider: Hazel Saravia Primary Care Provider: Matt Comer [facility] ; [facility] ; Hazel Saravia ; [employer] Coding Level of Care Code D/C DAY MANAGEMENT >30 MINS Diagnoses Acute encephalopathy G93.40 HTN (hypertension) I10 Atrial fibrillation I48.91 BPH (benign prostatic hyperplasia) N40.0 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 Coronary artery disease I25.10 Diabetic neuropathy E11.40 DM type 2 (diabetes mellitus, type 2) E11.9; Z79.4 Diabetes mellitus complication status: without complication 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
--- NOTE | 2021-06-04 06:25 | Coding Query ---
To promote full compliance with coding requirements relating to patient care, provider participation is requested in all cases of medical biller/coder uncertainty. Please assist us with the question(s) below: Coding Question(s): The diagnosis below was documented in the chart. Please indicate if it is still a possible diagnosis or ruled out. Physician's Response(s): TIA ( ) Diagnosed and POA ( ) Diagnosed and not POA ( ) Ruled out ( x ) Other (please specify) -Suspected/possible TIA, POA Thank You, Geovanni Barkley, [facility]
== END 2021-05-17 12:16 | disposition home health service (06) | DRG 78 ==
LOC: 2N 11:37 → ED 11:37 → SUATTDRO 15:48 → 2N 18:53 → SUATTDRO 05-06 15:40

== ENCOUNTER 2021-08-10 11:02 | Observation (INO) ==
--- NOTE | 2021-08-10 11:29 | Emergency Department Note ---
Impression & Plan Ambulatory dysfunction, Fall Admission ED Provider Note HPI: The patient is an 85-year-old gentleman with history of memory impairment, history of CVA, atrial fibrillation, presents the emergency department after being found down at home today. According to the patient's son at the bedside, patient was home this morning, his heard the patient fall in the bathroom and when she went into check on him he was leaning against the wall sitting on the floor. On arrival here to the ED the patient is hemodynamically stable. He is in no acute physical distress. His son at the bedside states that they have had some difficulty taking care of him recently at home, over the past several weeks he has had some diminished mentation, he seemingly has not been able to get around the house as well and has been very weak. They are interested in potentially placing him in a nursing facility if possible. ROS: -General: Patient found down/fall *10 point review systems was conducted and is otherwise negative unless stated above *Outpatient medications and allergy history reviewed PE: General: Alert, NAD HEENT: Normocephalic, atraumatic Eyes: Extraocular eye movement is intact, no scleral erythema Pulmonary: Clear to auscultation bilaterally, no wheezing Cardio: Regular rate and irregular rhythm GI: Abdomen is soft, nontender : No suprapubic tenderness MSK: No evidence of trauma or malformation of the extremities, no edema Skin: No evidence of rash Neuro: Alert, no focal deficits Psychiatric: Cooperative youth nutritional monitor: - An order was placed for continuous cardiac monitoring - Patient was noted to be in atrial fibrillation rhythm with rate of 79 EKG: Rate: 78 Rhythm: Atrial fibrillation Intervals: Within normal limits ST changes: No ST elevation Time: 1143 Medical Decision Making: Patient presented to the emergency department after an unwitnessed fall at home. This was noticed by his [id number] who heard a noise upstairs and found him down in the bathroom. Patient presents with his son at the bedside, the patient lives with his son and his [id number]. His son tells me that they are concerned that he is no longer safe at home, he has had progressive ambulatory dysfunction, multiple falls recently, his mentation seems to be diminishing. Here in the ED his lab work is generally unremarkable, EKG does not show any ischemic changes, electrolytes are without any critical abnormalities. Urinalysis does not show any evidence of infection. Chest x-ray does not show any evidence of pneumonia. CT imaging of the head does not show any evidence of intracranial bleeding. I discussed all the above findings with the patient and with his son at the bedside, patient's son tells me they are not comfortable taking the patient home as they feel that he is unsafe as at times he would be there by himself and he has not been able to ambulate well. They are interested in placement. Case management was consulted, it is thought that the patient would not be able to be placed in any facility in a timely manner and therefore arrangements should be made for admission. I therefore did discuss the case with the on-call midlevel provider for [facility], patient will be accepted to a nonmonitored bed for further care. Diagnosis: 1. Unwitnessed fall 2. Generalized weakness 3. Underlying memory issues/dementia 4. Ambulatory dysfunction 5. 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 Yates--per son pt does not have any deficits Bright red blood per rectum Coronary artery disease Depression Difficulty swallowing DM type 2 (diabetes mellitus, type 2) Encounter for pre-operative examination Foreign body in lip GERD (gastroesophageal reflux disease) Hearing deficit History of cellulitis HTN (hypertension) Hyperlipidemia Hypothyroid Inflamed external hemorrhoid Jaw disease Kidney stones Memory impairment Myocardial Infarction 2003--follows with Dr. Montaan Neuropathy On anticoagulant therapy eliquis daily Osteoarthritis Paroxysmal atrial flutter Productive cough Stage III chronic kidney disease Stroke x3 total---follows with Dr. Yates Transient hypotension Upper respiratory infection UTI (urinary tract infection) Surgical History History of bilateral cataract extraction History of esophagogastroduodenoscopy (EGD) History of kidney surgery History of lithotripsy x2 History of lumbar laminectomy History of tooth extraction Hx of CABG 2003 @ [facility] [place] Family History Father Diabetes Coronary heart disease Mother Diabetes Coronary heart disease Myocardial infarction Sister Breast cancer Brother Coronary heart disease Son Family history of diabetes mellitus Family/Other Family history of diabetes mellitus Other No family history of adverse response to anesthesia Denies family history of Ovarian cancer Prostate cancer Colorectal cancer Social History (Updated 05/28/21 @ 10:56 by Beatrice Her LPN) Smoking Status: Never smoker Second Hand Exposure: No; Hx Alcohol Use: No Hx Substance Use: No Preferred Language: Danish Communication Ability: Impaired Visual Impairment: No Limitations Hearing Ability: Use of Hearing Aid Wood Preparation Supervisor Required: No Beliefs That Will Affect Care: None marital status: Current Living Situation: Spouse and Family Current Living Situation Comment: lives with son and in independent living per pt. current occupational status: retired current occupation: used to work in [employer] Feels Safe at Home: Yes Childhood Exposure to Second-Hand Smoke: Yes caffeine: Yes Dental Care, Regularly: No Physical Activity Frequency: Does not Exercise Seatbelt Use: always Sunscreen Use: No Assistive Devices: Walker Allergies Allergies Allergy/AdvReac Type Severity Reaction Status Date / Time hydrocodone AdvReac Mild Dizziness, Verified 05/28/21 10:48 [From Panlor Nausea (hydrocodone-acetamin)] oxycodone AdvReac Mild NAUSEA/VOMI Verified 05/28/21 10:48 TING tramadol AdvReac Mild confusion Verified 05/28/21 10:48 Home Meds Home Medications Medication Instructions Recorded Confirmed polyethylene glycol 3350 17 17 g PO DAILY PRN 09/14/20 05/28/21 gram/dose oral powder (Miralax) glycerin 2 drp OPHTHALMIC (EYE) BID 10/17/20 05/28/21 diclofenac sodium 1 % topical gel See Rx Instructions TOP QID PRN 05/04/21 05/28/21 Previous Rx's Medication Instructions Recorded apixaban 2.5 mg tablet (Eliquis) 2.5 mg PO BID #180 tab 08/21/20 atorvastatin 80 mg tablet 80 mg PO HS #90 tab 08/21/20 finasteride 5 mg tablet 5 mg PO QAM #90 tab 08/21/20 levothyroxine 50 mcg tablet 50 mcg PO QAM #90 tab 08/21/20 triamcinolone acetonide 0.1 % 1 applic TOPICAL BID #30 g 10/02/20 topical cream blood sugar diagnostic (OneTouch #100 ea 10/18/20 Ultra Blue Test Strip) lancets 33 gauge (OneTouch Delica #100 ea 10/18/20 Plus Lancet) duloxetine 60 mg capsule,delayed 60 mg PO DAILY #90 cap 10/30/20 release omeprazole 20 mg capsule,delayed 40 mg PO QAM #180 cap 10/30/20 release blood-glucose meter (OneTouch #1 ea 10/31/20 Ultra2 Meter) methylcellulose (with sugar) 2 2 g PO DAILY #454 g 01/19/21 gram/19 gram oral powder (Fiber Therapy (methylcellulose-sugar)) pen needle, diabetic 32 gauge x #100 ea 02/15/21" (BD Ultra-Fine Mary Carmen Pen Needle) famotidine 20 mg tablet 20 mg PO BID #60 tab 03/28/21 docusate sodium 100 mg capsule 100 mg PO BID #60 cap 04/03/21 hydrocortisone 2.5 % topical cream 1 applic MI DAILY PRN #30 g 04/09/21 with perineal applicator pregabalin 100 mg capsule 100 mg PO TID #90 cap 04/19/21 insulin NPH-regular 70-30 U-100 12 unit SQ BID #15 ml 05/17/21 insulin 100 unit/mL subcutaneous pen (Novolin 70-30 FlexPen U-100 Insulin) carbidopa 25 mg-levodopa 100 mg 0.5 tab PO TID #45 tab 05/21/21 tablet (Sinemet) lisinopril 10 mg tablet 10 mg PO QAM #45 tab 05/28/21 lisinopril 5 mg tablet 5 mg PO DAILY #30 tab 05/28/21 magnesium oxide 400 mg PO BID #60 tab 06/04/21 clopidogrel 75 mg tablet 75 mg PO QAM #90 tab 06/11/21 Results & Data (ED) Vital Signs Vital Signs - 24 hr 08/10/21 11:08 08/10/21 11:51 08/10/21 12:30 Temperature 36.8 C Temperature Source Temporal Artery Scan Pulse Rate 81 Pulse Rate [Apical] 75 Respiratory Rate 19 18 Blood Pressure 133/83 Blood Pressure [Left Arm] 154/100 H Blood Pressure Mean 99 Blood Pressure Mean [Left Arm] 118 Pulse Oximetry 98 98 98 Oxygen Delivery Method Room Air Room Air Room Air Sepsis Recent Fever Within 48 Hours No Sepsis New/Unexplained Change in Mental Status N/A Sepsis Action Taken by Nursing No Action Required Laboratory Data Result diagrams: 08/10/21 11:51 08/10/21 11:51 Lab Results 08/10/21 08/10/21 08/10/21 Range/Units 11:43 11:51 11:51 WBC 5.72 (4.8-10.8) K/uL RBC 5.10 (4.7-6.1) M/uL Hgb 15.8 (14.0-18.0) g/dL Hct 46.0 (42-52) % MCV 90.2 (80-100) fL MCH 31.0 (25-34) pg MCHC 34.3 (32-36) g/dL RDW Std Deviation 46.4 H (36.4-46.3) fL RDW Coeff of Eben 14.0 (11.5-14.5) % Plt Count 110 L (130-400) K/uL MPV 12.1 H (7.4-10.4) fL Immature Gran % (Auto) 0.3 % Neut % (Auto) 65.1 % Lymph % (Auto) 22.7 % [place] % (Auto) 8.6 % Eos % (Auto) 3.1 % Baso % (Auto) 0.2 % Neut # (Auto) 3.72 (1.4-6.5) K/uL Lymph # (Auto) 1.30 (1.2-3.4) K/uL [place] # (Auto) 0.49 (0.11-0.59) K/uL Eos # (Auto) 0.18 (0-0.5) K/uL Baso # (Auto) 0.01 (0-0.2) K/uL Immature Gran # (Auto) 0.02 (0.00-0.02) K/uL PT (9.0-12.0) Seconds INR (0.9-1.1) Sodium 137 (136-145) mmol/L Potassium 4.5 (3.5-5.1) mmol/L Chloride 105 (98-107) mmol/L Carbon Dioxide 24 (21-32) mmol/L Anion Gap 8 (3-11) BUN 20 (6-23) mg/dl Creatinine 1.29 (0.6-1.4) mg/dl Est Cr Clr Drug Dosing 48.3 ml/min Est GFR ( Amer) 58.2 ml/min Est GFR (Non-Af Amer) 50.2 ml/min BUN/Creatinine Ratio 15.5 (10-20) Glucose 214 H (70-99) mg/dl Calcium 9.5 (8.5-10.1) mg/dl Total Bilirubin 0.9 (0.2-1.0) mg/dl AST 17 (13-39) U/L ALT 11 (7-52) U/L Alkaline Phosphatase 92 (34-104) U/L Total Protein 7.0 (6.0-8.3) gm/dl Albumin 3.9 (3.4-5.0) gm/dl Globulin 3.1 (2.5-4.0) gm/dl Albumin/Globulin Ratio 1.3 (0.9-2) Urine Color Urine Appearance (Clear) Urine pH (4.5-7.5) Ur Specific [place] (1.000-1.030) Urine Protein (Negative) Urine Glucose (UA) (Negative) Urine Ketones (Negative) Urine Blood (Negative) Urine Nitrite (Negative) Urine Bilirubin (Negative) Urine Urobilinogen (Negative) Ur Leukocyte Esterase (Negative) Urine WBC (Auto) (0-5) /hpf Urine RBC (Auto) (0-4) /hpf U Hyaline Cast (Auto) (0-5) /lpf U Epithel Cells (Auto) (0-5) /lpf Urine Bacteria (Auto) (Negative) SARS-CoV-2, RNA, NAAT NEGATIVE (NEGATIVE) 08/10/21 08/10/21 Range/Units 11:51 13:51 WBC (4.8-10.8) K/uL RBC (4.7-6.1) M/uL Hgb (14.0-18.0) g/dL Hct (42-52) % MCV (80-100) fL MCH (25-34) pg MCHC (32-36) g/dL RDW Std Deviation (36.4-46.3) fL RDW Coeff of Eben (11.5-14.5) % Plt Count (130-400) K/uL MPV (7.4-10.4) fL Immature Gran % (Auto) % Neut % (Auto) % Lymph % (Auto) % [place] % (Auto) % Eos % (Auto) % Baso % (Auto) % Neut # (Auto) (1.4-6.5) K/uL Lymph # (Auto) (1.2-3.4) K/uL [place] # (Auto) (0.11-0.59) K/uL Eos # (Auto) (0-0.5) K/uL Baso # (Auto) (0-0.2) K/uL Immature Gran # (Auto) (0.00-0.02) K/uL PT 10.9 (9.0-12.0) Seconds INR 1.1 (0.9-1.1) Sodium (136-145) mmol/L Potassium (3.5-5.1) mmol/L Chloride (98-107) mmol/L Carbon Dioxide (21-32) mmol/L Anion Gap (3-11) BUN (6-23) mg/dl Creatinine (0.6-1.4) mg/dl Est Cr Clr Drug Dosing ml/min Est GFR ( Amer) ml/min Est GFR (Non-Af Amer) ml/min BUN/Creatinine Ratio (10-20) Glucose (70-99) mg/dl Calcium (8.5-10.1) mg/dl Total Bilirubin (0.2-1.0) mg/dl AST (13-39) U/L ALT (7-52) U/L Alkaline Phosphatase (34-104) U/L Total Protein (6.0-8.3) gm/dl Albumin (3.4-5.0) gm/dl Globulin (2.5-4.0) gm/dl Albumin/Globulin Ratio (0.9-2) Urine Color Yellow Urine Appearance Clear (Clear) Urine pH 6.5 (4.5-7.5) Ur Specific [place] 1.014 (1.000-1.030) Urine Protein Trace H (Negative) Urine Glucose (UA) 1+ H (Negative) Urine Ketones Negative (Negative) Urine Blood Negative (Negative) Urine Nitrite Negative (Negative) Urine Bilirubin Negative (Negative) Urine Urobilinogen Negative (Negative) Ur Leukocyte Esterase Negative (Negative) Urine WBC (Auto) 1-5 (0-5) /hpf Urine RBC (Auto) 0-4 (0-4) /hpf U Hyaline Cast (Auto) 1-5 (0-5) /lpf U Epithel Cells (Auto) 0-5 (0-5) /lpf Urine Bacteria (Auto) Negative (Negative) SARS-CoV-2, RNA, NAAT (NEGATIVE) Administered Medications Discontinued Medications Sodium Chloride (Nss) 500 mls @ 999 mls/hr IV .Q31M STEPH Stop: 08/10/21 12:00 Last Admin: 08/10/21 12:29 Dose: 999 mls/hr Documented by: [id number] Imaging Data Radiologist's Impression: Chest X-Ray 08/10/21 11:25 SINGLE VIEW CHEST CLINICAL HISTORY: Fall. FINDINGS: An AP, portable, upright chest radiograph is compared to study dated 05/09/2021. Correlation is made with chest CT dated 11/11/2017. The patient is status post midline sternotomy. The heart is enlarged noting atherosclerotic calcification of the thoracic aorta. The pulmonary vasculature is noncongested. Chronic interstitial thickening is similar to previous. Scarring/atelectasis is noted at the lung bases. No airspace consolidation or large pleural effusion is identified. No pneumothorax is seen. The skeletal structures are osteopenic. The bony thorax is grossly intact. IMPRESSION: Cardiomegaly with no acute cardiopulmonary abnormality. ACT 112: Negative or not required by law. Electronically signed by: Crow Wells M.D. 08/10/2021 12:[address] 08/10/21 11:26 CT head/brain wo con CLINICAL HISTORY: 85 years-old Male with FALL. Acute head injury status post fall TECHNIQUE: Multiple axial CT images of the head were obtained without contrast. A dose lowering technique was utilized adhering to the principles of ALARA. CT DOSE: 729.78 mGycm COMPARISON: Head CT 05/10/2021 FINDINGS: No acute intracranial hemorrhage, midline shift, intracranial mass, hydrocephal us, territorial ischemia or abnormal extra-axial collection. Unchanged right temporal lobe encephalomalacia. Age-related involutional changes. White matter hypodensities suggest chronic microvascular ischemic disease. Cerebral vascular calcifications. Chronic lacunar infarcts of the left caudate nucleus and thalamus. The calvarium is intact. Large bilateral mastoid effusions with fluid within the middle ear cavities. 3.7 cm focus of polypoid mucosal thickening involves the posterior left nasal aperture. Prior bilateral lens repair. IMPRESSION: No acute intracranial abnormality or calvarial fracture. ACT 112: Negative or not required by law. The above report was generated using voice recognition software. It may contain grammatical, syntax or spelling errors. Electronically signed by: Ranjeet Cisneros M.D. 08/10/2021 12:20 PM Discharge Plan Visit Data Chief Complaint: Fall Stated Complaint: FELL, HIT HEAD, DIZZY, SLURRED SPEECH, PASSED OUT ED Provider: Venancio Leon Discharge Problem: Ambulatory dysfunction, Fall Forms Stand Alone Forms: [facility] Cardiac Guard Prescriptions Prescriptions: No Action atorvastatin 80 mg tablet 80 mg PO HS Qty: 90 RF: 3 finasteride 5 mg tablet 5 mg PO QAM Qty: 90 RF: 3 levothyroxine 50 mcg tablet 50 mcg PO QAM Qty: 90 RF: 3 Eliquis 2.5 mg tablet 2.5 mg PO BID Qty: 180 RF: 3 (DME) OneTouch Ultra Blue Test Strip Strip See Rx Instructions .ROUTE .MEDSUPPLY Qty: 100 RF: 5 (DME) lancets [Intact VascularTouch Delica Plus Lancet] 33 gauge misc See Rx Instructions .ROUTE .MEDSUPPLY Qty: 100 RF: 5 omeprazole 20 mg capsule,delayed release(DR/EC) 40 mg PO QAM Qty: 180 RF: 3 duloxetine 60 mg capsule,delayed release(DR/EC) 60 mg PO DAILY Qty: 90 RF: 3 (DME) blood-glucose meter [OneTouch Ultra2 Meter] Misc See Rx Instructions .ROUTE .MEDSUPPLY Qty: 1 RF: 0 Fiber Therapy (m-cell/sugar) 2 gram/19 gram powder 2 g PO DAILY Qty: 454 RF: 0 (DME) pen needle, diabetic [BD Ultra-Fine Mary Carmen Pen Needle] 32 gauge x 5/32" needle See Dose Instructions .ROUTE .MEDSUPPLY Qty: 100 RF: 3 hydrocortisone 2.5 % cream with perineal applicator 1 applic MI DAILY PRN (Reason: hemorrhoids) Qty: 30 RF: 1 pregabalin 100 mg capsule 100 mg PO TID Qty: 90 RF: 3 carbidopa-levodopa [Sinemet] 25-100 mg tablet 0.5 tab PO TID Qty: 45 RF: 1 lisinopril 10 mg tablet 10 mg PO QAM Qty: 45 RF: 0 lisinopril 5 mg tablet 5 mg PO DAILY Qty: 30 RF: 5 magnesium oxide 400 mg magnesium tablet 400 mg PO BID Qty: 60 RF: 5 clopidogrel 75 mg tablet 75 mg PO QAM Qty: 90 RF: 3 docusate sodium 100 mg capsule 100 mg PO BID Qty: 60 RF: 5 triamcinolone acetonide 0.1 % cream 1 applic topical BID Qty: 30 RF: 2 famotidine 20 mg tablet 20 mg PO BID Qty: 60 RF: 11 polyethylene glycol 3350 [Miralax] 17 gram/dose powder 17 g PO DAILY PRN (Reason: Constipation) RF: 0 glycerin Drops 2 drp OPHTHALMIC (EYE) BID RF: 0 diclofenac sodium 1 % gel See Rx Instructions TOP QID PRN (Reason: Pain) RF: 0 Novolin 70-30 FlexPen U-100 100 unit/mL (70-30) insulin pen 12 unit SQ BID Qty: 15 RF: 5 Referrals Referrals: Matt Comer MD [Primary Care Provider] - Discharge Problem: Fall Qualifiers: Encounter type: initial encounter Qualified Code(s): W19.XXXA - Unspecified fall, initial encounter
[2021-08-10] MEDS ORDERED: SODIUM CHLORIDE 0.9% 500 ML IV SCH (11:30)
[2021-08-10 12:08] LABS: Hemoglobin 15.8 g/dL (14.0-18.0); Mean Corpuscular Hgb Conc 34.3 g/dL (32-36); Mean Corpuscular Volume 90.2 fL (80-100); Mean Platelet Volume 12.1 fL (7.4-10.4); Platelet Count 110 K/uL (130-400); RDW Standard Deviation 46.4 fL (36.4-46.3); White Blood Count 5.72 K/uL (4.8-10.8)
--- NOTE | 2021-08-10 12:12 | XRay Report ---
SINGLE VIEW CHEST CLINICAL HISTORY: Fall. FINDINGS: An AP, portable, upright chest radiograph is compared to study dated 05/09/2021. Correlatio n is made with chest CT dated 11/11/2017. The patient is status post midline sternotomy. The heart is enlarged noting atherosclerotic calcification of the thoracic aorta. The pulmonary vasculature is non congested. Chronic interstitial thickening is similar to previous. Scarring/atelectasis is noted at t he lung bases. No airspace consolidation or large pleural effusion is identified. No pneumothorax is seen. The skeletal structures are osteopenic. The bony thorax is grossly intact. IMPRESSION: Cardiomegaly with no acute cardiopulmonary abnormality. ACT 112: Negative or not required by law. Electronically signed by: Crow Wells M.D. 08/10/2021 12:11 PM
[2021-08-10 12:16] LABS: INR 1.1 (0.9-1.1); Prothrombin Time 10.9 Seconds (9.0-12.0)
--- NOTE | 2021-08-10 12:22 | CT Scan Report ---
CT head/brain wo con CLINICAL HISTORY: 85 years-old Male with FALL. Acute head injury status post fall TECHNIQUE: Multiple axial CT images of the head were obtained without contrast. A dose lowering tech nique was utilized adhering to the principles of ALARA. CT DOSE: 729.78 mGycm COMPARISON: Head CT 05/10/2021 FINDINGS: No acute intracranial hemorrhage, midline shift, intracranial mass, hydrocephalus, territorial ischem ia or abnormal extra-axial collection. Unchanged right temporal lobe encephalomalacia. Age-related in volutional changes. White matter hypodensities suggest chronic microvascular ischemic disease. Cerebr al vascular calcifications. Chronic lacunar infarcts of the left caudate nucleus and thalamus. The calvarium is intact. Large bilateral mastoid effusions with fluid within the middle ear cavities . 3.7 cm focus of polypoid mucosal thickening involves the posterior left nasal aperture. Prior bilat eral lens repair. IMPRESSION: No acute intracranial abnormality or calvarial fracture. ACT 112: Negative or not required by law. The above report was generated using voice recognition software. It may contain grammatical, syntax o r spelling errors. Electronically signed by: Ranjeet Cisneros M.D. 08/10/2021 12:20 PM
[2021-08-10 12:27] LABS: Albumin Globulin Ratio 1.3 (0.9-2); Albumin Level 3.9 gm/dl (3.4-5.0); BUN Creatinine Ratio 15.5 (10-20); Bilirubin,Total 0.9 mg/dl (0.2-1.0); Calcium 9.5 mg/dl (8.5-10.1); Creatinine Clr Calc Pharmacy 48.3 ml/min; Est GFR (African American) 58.2 ml/min; Est GFR (Non-African American) 50.2 ml/min; Globulin 3.1 gm/dl (2.5-4.0); Potassium 4.5 mmol/L (3.5-5.1)
[2021-08-10 12:28] LABS: Basophils # (auto) 0.01 K/uL (0-0.2); Basophils % (auto) 0.2 %; Eosinophils # (auto) 0.18 K/uL (0-0.5); Eosinophils % (auto) 3.1 %; Immature Granulocytes # (auto) 0.02 K/uL (0.00-0.02); Immature Granulocytes % (auto) 0.3 %; Lymphocytes % (auto) 22.7 %; Monocytes # (auto) 0.49 K/uL (0.11-0.59); Monocytes % (auto) 8.6 %; Neutrophils # (auto) 3.72 K/uL (1.4-6.5); Neutrophils % (auto) 65.1 %
[2021-08-10 14:02] LABS: Appearance Urine Clear (Clear); Bacteria Urine Automated Negative (Negative); Bilirubin Urine Negative (Negative); Blood Urine Negative (Negative); Color Urine Yellow; Epithelial Cell Urine Auto 0-5 /lpf (0-5); Glucose Urine UA 1+ (Negative); Ketones Urine Negative (Negative); Leukocyte Esterase Urine Negative (Negative); Nitrite Urine Negative (Negative); Protein Urine Trace (Negative); RBC Urine Automated 0-4 /hpf (0-4); Specific Gravity Urine 1.014 (1.000-1.030); Urobilinogen Urine Negative (Negative); pH Urine 6.5 (4.5-7.5)
--- NOTE | 2021-08-10 14:56 | History & Physical Report ---
Date of Service August 10, 2021 Assessment & Plan (1) Fall: Plan: -Unwitnessed ground level fall without LOC. -Differential includes mechanical fall vs reflex syncope vs orthostatic hypotension vs hypoglycemic episode. Patient is confused at baseline and has reportedly becoming more weak and physically dependent on his son for ambulation. Given the fact that patient was urinating at time of fall, it can potentially a reflex syncope. 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 Patient is an insulin dependent diabetic, he takes his AM Novolog around 7 before his son goes to work and often sleeps until around 11 most days, which is a new habit for him. Son states he has recently increased pt's Novolog from 12 units BID to 18 BID, as his sugars remained high on 12 units BID. Low suspicion for head bleed or other acute intracranial process as CT head showed no acute intracranial hemorrhage, midline shift, intracranial mass, hydrocephalus, territorial ischemia or abnormal extra-axial collection. -Orthostatic VS daily. -PT/OT consult. (2) Atrial fibrillation: Plan: -Permanent, with a rate of 75 today. -Continue Eliquis. -Place on telemetry. (3) Coronary artery disease: Plan: -CABG in 2003 -Continue atorvastatin, clopidogrel, rosuvastatin. (4) Diabetes mellitus: Plan: -BGM 215 today. HgbA1c in April was 7.7 -Patient was d/c'd in April on Novolog 70/30 12 units BID. Son has been giving him 18 units BID because his sugars had consistently been high on 12. -Continue Novolog 70/30 with accuchekc and sliding scale insulin. -Can consider rechecking HgbA1c to make sure patient's sugar has not been too strictly controlled which could be a factor in his dizziness/weakness causing increased falls. -Continue duloxetine for neuropathy. 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 -Continue Eliquis and Plavix. (6) Hypertension: Plan: -SBP 180s upon my exam, however had previously remained in 150s in ED. Unlikely that this is HTN encephalopathy that has caused pt's fall today, however he has been admitted for this in the past. -Patient is on Lisinopril 15 mg daily. Will increase this to 20 mg starting tomorrow and also add on PRN Hydralazine. (7) Stage III chronic kidney disease: Plan: -Creatinine 1.29, near pt's baseline. -Avoid nephrotoxins, renally dose meds when appropriate -BMP in AM. (8) BPH (benign prostatic hyperplasia): Plan: -Continue finasteride. (9) Depression: Plan: -Continue duloxetine. (10) Hypothyroid: Plan: -Continue levothyroxine. (11) Dyslipidemia: Plan: -Continue rosuvastatin. (12) GERD (gastroesophageal reflux disease): Plan: -Continue Pepcid. 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 Per son, patient's cognitive status today is about his baseline, no acute change in mentation in aftermath of fall. -Continue Sinemet. (14) DVT prophylaxis: Plan: -SCDs and continue patient's Eliquis Plan: COVD-19 negative History of Present Illness Chief Complaint: Fall Primary Care Provider: Matt Comer MD This is an 85 y/o male with PMH of CVA, a-fibb on Eliquis, HTN, DM2, CAD, BPH, hypothyroidism, and dementia who presents today from home after an unwitnessed fall. Per patient's son who is at the bedside, his heard the patient fall in the bathroom and went to check on him when she foudn hm sitting on the floor, leaned up against the wall. Patient tells me he was standing up to urinate when he fell. He is unable to provide more context about events leading up to fall, but states he hit the back of his head. Denies LOC, acute change in baseline mentation, N/V, and visual changes. Son reports he has had several falls over the past two months, some that have been witnessed and he states that the patient was feeling dizzy prior to those falls. He has also been getting progressively weaker in his legs. Patient is an insulin dependent diabetic, he takes his AM Novolog around 7 before his son goes to work and often sleeps until around 11 most days, which is a new habit for him. Son states he has recently increased pt's Novolog from 12 units BID to 18 BID, as his sugars remained high on 12 units BID. Patient resides with his son and his who have been managing his medications and serve as his primary caretakers, however they have had some difficulty taking care of him recently at home due to his dementia and progressive weakness. They are interested in potentially placing him in a nursing facility if possible. The patient is hemodynamically stable in the ED and upon my examination and is pleasant and cooperative, able to participate in the exam. CT head did not reveal acute intracranial hemorrhage, midline shift, intracranial mass, hydrocephalus, territorial ischemia or abnormal extra-axial collection. Pt is COVID negative in ED and has received his initial vaccination series, with out booster. Allergies Allergy/AdvReac Type Severity Reaction Status Date / Time hydrocodone AdvReac Mild Dizziness, Verified 08/10/21 14:47 [From Panlor Nausea (hydrocodone-acetamin)] oxycodone AdvReac Mild NAUSEA/VOMI Verified 08/10/21 14:47 TING tramadol AdvReac Mild confusion Verified 08/10/21 14:47 Home Medications Medication Instructions Recorded Confirmed Type apixaban 2.5 mg tablet (Eliquis) 2.5 mg PO BID #180 tab 08/21/20 08/10/21 Rx atorvastatin 80 mg tablet 80 mg PO HS #90 tab 08/21/20 08/10/21 Rx finasteride 5 mg tablet 5 mg PO QAM #90 tab 08/21/20 08/10/21 Rx levothyroxine 50 mcg tablet 50 mcg PO QAM #90 tab 08/21/20 08/10/21 Rx polyethylene glycol 3350 17 17 g PO DAILY PRN 09/14/20 08/10/21 History gram/dose oral powder (Miralax) triamcinolone acetonide 0.1 % 1 applic TOPICAL BID #30 g 10/02/20 08/10/21 Rx topical cream glycerin 2 drp OPHTHALMIC (EYE) BID 10/17/20 08/10/21 History blood sugar diagnostic (OneTouch #100 ea 10/18/20 05/28/21 Rx Ultra Blue Test Strip) lancets 33 gauge (OneTouch Delica #100 ea 10/18/20 05/28/21 Rx Plus Lancet) duloxetine 60 mg capsule,delayed 60 mg PO DAILY #90 cap 10/30/20 08/10/21 Rx release omeprazole 20 mg capsule,delayed 40 mg PO QAM #180 cap 10/30/20 08/10/21 Rx release blood-glucose meter (OneTouch #1 ea 10/31/20 05/28/21 Rx Ultra2 Meter) methylcellulose (with sugar) 2 2 g PO DAILY #454 g 01/19/21 08/10/21 Rx gram/19 gram oral powder (Fiber Therapy (methylcellulose-sugar)) pen needle, diabetic 32 gauge x #100 ea 02/15/21 05/28/21 Rx 532" (BD Ultra-Fine Mary [place]en Pen Needle) famotidine 20 mg tablet 20 mg PO BID #60 tab 03/28/21 08/10/21 Rx docusate sodium 100 mg capsule 100 mg PO BID #60 cap 04/03/21 08/10/21 Rx hydrocortisone 2.5 % topical cream 1 applic MO DAILY PRN #30 g 04/09/21 08/10/21 Rx with perineal applicator pregabalin 100 mg capsule 100 mg PO TID #90 cap 04/19/21 08/10/21 Rx diclofenac sodium 1 % topical gel 4 g TOP QID PRN 05/04/21 08/10/21 History insulin NPH-regular 70-30 U-100 12 unit SQ BID #15 ml 05/17/21 08/10/21 Rx insulin 100 unit/mL subcutaneous pen (Novolin 70-30 FlexPen U-100 Insulin) carbidopa 25 mg-levodopa 100 mg 0.5 tab PO TID #45 tab 05/21/21 08/10/21 Rx tablet (Sinemet) lisinopril 10 mg tablet 10 mg PO QAM #45 tab 05/28/21 08/10/21 Rx lisinopril 5 mg tablet 5 mg PO DAILY #30 tab 05/28/21 08/10/21 Rx magnesium oxide 400 mg PO BID #60 tab 06/04/21 08/10/21 Rx clopidogrel 75 mg tablet 75 mg PO QAM #90 tab 06/11/21 08/10/21 Rx Past Med/Surg History Medical History (Updated 08/10/21 @ 16:32 by Alta Wadsworth PA-C) Abnormal tympanic membrane Left and Right Atrial fibrillation with rapid ventricular response Atrial flutter with rapid ventricular response Bilateral otitis externa BPH (benign prostatic hyperplasia) 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 Yates--per son pt does not have any deficits Bright red blood per rectum Coronary artery disease Depression Difficulty swallowing DM type 2 (diabetes mellitus, type 2) Encounter for pre-operative examination Foreign body in lip GERD (gastroesophageal reflux disease) Hearing deficit History of cellulitis HTN (hypertension) Hyperlipidemia Hypothyroid Inflamed external hemorrhoid Jaw disease Kidney stones Memory impairment Myocardial Infarction 2003--follows with Dr. [place] Neuropathy On anticoagulant therapy eliquis daily Osteoarthritis Paroxysmal atrial flutter Productive cough Stage III chronic kidney disease Stroke x3 total---follows with Dr. Yates Transient hypotension Upper respiratory infection UTI (urinary tract infection) Surgical History History of bilateral cataract extraction History of esophagogastroduodenoscopy (EGD) History of kidney surgery History of lithotripsy x2 History of lumbar laminectomy History of tooth extraction Hx of CABG [address] [facility] [place] Family History Father Diabetes Coronary heart disease Mother Diabetes Coronary heart disease Myocardial infarction Sister Breast cancer Brother Coronary heart disease Son Family history of diabetes mellitus Family/Other Family history of diabetes mellitus Other No family history of adverse response to anesthesia Denies family history of Ovarian cancer Prostate cancer Colorectal cancer Social History (Updated 05/28/21 @ 10:56 by Beatrice Her LPN) Smoking Status: Never smoker Second Hand Exposure: No; Hx Alcohol Use: No Hx Substance Use: No Preferred Language: [place] Communication Ability: Impaired Visual Impairment: No Limitations Hearing Ability: Use of Hearing Aid 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 current occupational status: retired current occupation: used to work in [employer] Feels Safe at Home: Yes Childhood Exposure to Second-Hand Smoke: Yes caffeine: Yes Dental Care, Regularly: No Physical Activity Frequency: Does not Exercise Seatbelt Use: always Sunscreen Use: No Assistive Devices: Walker Review of Systems Review of Systems: Constitutional: No fever, sweats or chills Eyes: No diplopia, no worsening or blurred vision ENT: normal hearing, no trouble swallowing Respiratory: No cough, sputum, dyspnea at rest or on exertion Cardiovascular: No chest pain, tightness or palpitations Abdomen: No pain, nausea, vomiting, diarrhea or constipation Musculoskeletal: No joint pain, calf pain, swelling Neurologic: Reports occasional dizziness and progressing weakness over last 2 months; no numbness/tingling, or balance problems Psychiatric: No anxiety or depression Skin: No rash or itch Physical Exam Physical Exam: General: awake, alert, no apparent distress Head: Normocephalic, atraumatic ENT: PERRL, EOMI, no pharyngeal exudate, mucous membranes moist Chest: Clear to auscultation, on room air, no adventitious breath sounds Cardiac: Regular rate and rhythm, no murmur, no JVD, normal peripheral pulses, good capillary refill Abdominal: NABS x 4 quadrants, soft, nontender to palpation, no rebound, guarding or tenderness Extremities: Normal inspection, no peripheral edema or erythema, calfs nontender to palpation Psych: Normal mood and affect Neuro: AAO x 3, strength intact bilaterally and rated 5/5, no motor deficits, speech is clear, no peripheral sensory deficits Skin: no rash or erythema Results & Data Results & Data ([facility]) Vital Signs (Past 12 Hours) Vital Signs Temp Pulse Pulse Resp BP BP Pulse Ox 08/10/21 14:31 73 16 206/130 H 98 08/10/21 14:30 75 17 99 08/10/21 14:00 77 15 165/122 H 99 08/10/21 13:30 74 16 176/114 H 94 08/10/21 13:00 76 21 168/113 H 90 08/10/21 12:30 82 75 16 154/104 H 154/100 H 97 08/10/21 11:51 98 08/10/21 11:08 36.8 C 81 19 133/83 98 Laboratory Results Abnormal lab results 08/10/21 08/10/21 08/10/21 Range/Units 11:51 11:51 13:51 RDW Std Deviation 46.4 H (36.4-46.3) fL Plt Count 110 L (130-400) K/uL MPV 12.1 H (7.4-10.4) fL Glucose 214 H (70-99) mg/dl Urine Protein Trace H (Negative) Urine Glucose (UA) 1+ H (Negative) Diagnostic Findings Chest X-Ray 08/10/21 11:25 SINGLE VIEW CHEST CLINICAL HISTORY: Fall. FINDINGS: An AP, portable, upright chest radiograph is compared to study dated 05/09/2021. Correlation is made with chest CT dated 11/11/2017. The patient is status post midline sternotomy. The heart is enlarged noting atherosclerotic calcification of the thoracic aorta. The pulmonary vasculature is noncongested. Chronic interstitial thickening is similar to previous. Scarring/atelectasis is noted at the lung bases. No airspace consolidation or large pleural effusion is identified. No pneumothorax is seen. The skeletal structures are osteopenic. The bony thorax is grossly intact. IMPRESSION: Cardiomegaly with no acute cardiopulmonary abnormality. ACT 112: Negative or not required by law. Electronically signed by: Crow Wells M.D. 08/10/2021 12:[address] 08/10/21 11:26 CT head/brain wo con CLINICAL HISTORY: 85 years-old Male with FALL. Acute head injury status post fall TECHNIQUE: Multiple axial CT images of the head were obtained without contrast. A dose lowering technique was utilized adhering to the principles of ALARA. CT DOSE: 729.78 mGycm COMPARISON: Head CT 05/10/2021 FINDINGS: No acute intracranial hemorrhage, midline shift, intracranial mass, hydrocephalus, territorial ischemia or abnormal extra-axial collection. Unchanged right temporal lobe encephalomalacia. Age-related involutional changes. White matter hypodensities suggest chronic microvascular ischemic disease. Cerebral vascular calcifications. Chronic lacunar infarcts of the left caudate nucleus and thalamus. The calvarium is intact. Large bilateral mastoid effusions with fluid within the middle ear cavities. 3.7 cm focus of polypoid mucosal thickening involves the posterior left nasal aperture. Prior bilateral lens repair. IMPRESSION: No acute intracranial abnormality or calvarial fracture. ACT 112: Negative or not required by law. The above report was generated using voice recognition software. It may contain grammatical, syntax or spelling errors. Electronically signed by: Ranjeet Cisneros M.D. 08/10/2021 12:20 PM ECG Additional Comments: Atrial fibrillation Abnormal ECG When compared with ECG of 04-MAY-2021 11:59, Criteria for Anterior infarct are no longer Present QT has lengthened Supervising Physician Co-Signing Physician Notes Patient was seen and examined independently I discussed the case with Alta RUIZ I reviewed pertinent past medical social family history and also the plan of care and agree with the plan of care. Patient brought in by family due to a fall at home. He is concerned they are u nable to care for him any more. Patient's been having escalating doses of diabetic coverage needs however the son says he sometimes takes his insulin in the morning then goes back to sleep and wakes up at 11:00. As a sign of it was possible his blood sugar could have been low to cause him to fall and he said absolutely not although he did not check it. Patient has no evidence of injury from fall he did strike his head CT scan negative patient is about his usual mental status according to his son. Face exam otherwise shows him the rate controlled atrial fibrillation him to have some mild memory impairment no other concerns for infectious etiology laboratory evaluations fairly unremarkable. Patient will be in telemetry setting because of his history of atrial fibrillation for concern he may have an arrhythmia causing him to fall. PT OT evaluation for possible placement this is likely would be for long-term placement. Patient may have hypertensive urgency will have blood pressure c ontrol escalating lisinopril slightly with consideration of possibly adding a second agent if his blood pressure is not well controlled Any exceptions will be noted below PG Care Time/CCT Total # of Minutes Spent Total Time Spent with Patient: Total time spent is greater than 50% in coordination of care (as documented) at patient's floor/unit and/or counseling patient: Coding Level of Care Code INT OBSERVATION CARE 70M LVL 3 Diagnoses Fall W19.XXXA Encounter type: initial encounter Hypertension I10 Hypertension type: unspecified Atrial fibrillation I48.21 Atrial fibrillation type: permanent Coronary artery disease I25.10 Stage III chronic kidney disease N18.3 Depression F32.9 BPH (benign prostatic hyperplasia) N40.0 Diabetes mellitus E11.9 Chronic kidney disease stage: stage 3 (moderate) Chronic kidney disease stage 3 subtype: stage 3a (GFR 45-59) Diabetes mellitus complication status: with kidney complications Diabetes mellitus mcfp insulin use: with mcfp use Diabetes mellitus type: type 2 Dyslipidemia E78.5 Chronic ischemic vertebrobasilar artery brainstem stroke I69.30 DVT prophylaxis Z29.9 Memory loss R41.3 Hypothyroid E03.9 Hypothyroidism type: acquired GERD (gastroesophageal reflux disease) K21.9 Esophagitis presence: esophagitis presence not specified (1) Diabetes mellitus Chronic kidney disease stage: stage 3 (moderate) Chronic kidney disease stage 3 subtype: stage 3a (GFR 45-59) Diabetes mellitus complication status: with kidney complications Diabetes mellitus roasterman insulin use: with mcfp use Diabetes mellitus type: type 2 (2) Atrial fibrillation Atrial fibrillation type: permanent Qualified Code(s): I48.21 - Permanent atrial fibrillation (3) Hypothyroid Hypothyroidism type: acquired Qualified Code(s): E03.9 - Hypothyroidism, unspecified (4) GERD (gastroesophageal reflux disease) Esophagitis presence: esophagitis presence not specified Qualified Code(s): K21.9 - Gastro-esophageal reflux disease without esophagitis (5) Hypertension Hypertension type: unspecified Qualified Code(s): I10 - Essential (primary) hypertension (6) Fall Encounter type: initial encounter Qualified Code(s): W19.XXXA - Unspecified fall, initial encounter
[2021-08-10] MEDS ORDERED: CARBOHYDRATES FOR HYPOGLYCEMIA PO PRN (15:25)
[2021-08-10] MEDS ORDERED: GLUCOSE 10 TABS/TUBE PO PRN (15:25)
[2021-08-10] MEDS ORDERED: GLUCAGON FOR INJ 1 MG VIAL SQ PRN (15:25)
[2021-08-10] MEDS ORDERED: DEXTROSE 50% 50 ML SYRINGE IV PRN (15:25)
[2021-08-10] MEDS ORDERED: GLUCOSE 40% GEL 15 GM TUBE PO PRN (15:25)
[2021-08-10] MEDS: INSULIN ASPART PER UNIT SC SCH ×2 (18:22→21:30)
[2021-08-10] MEDS ORDERED: HYDROCORTISONE HC 2.5% CRM 30GM TUBE EXT PRN (19:32)
[2021-08-10] MEDS ORDERED: ONDANSETRON INJ 2 MG/ML 2 ML VIAL IV PRN (19:32)
[2021-08-10] MEDS ORDERED: POLYETHYLENE (MIRALAX) 17 GM PACK PO PRN (19:32)
--- NOTE | 2021-08-10 20:01 | Electrocardiogram Report ---
Test Reason : Blood Pressure : / mmHG Vent. Rate : 078 BPM Atrial Rate : 064 BPM P-R Int : 000 ms QRS Dur : 088 ms QT Int : 400 ms P-R-T Axes : 000 -07 083 degrees QTc Int : 456 ms Atrial fibrillation Abnormal ECG When compared with ECG of 04-MAY-2021 11:59, No significant change Confirmed by Seth Paige ([id number]) on 08/10/2021 8:00:22 PM Referred By: REFERRED SELF Confirmed By:Seth Paige
[2021-08-10] MEDS: APIXABAN 2.5 MG TAB PO SCH (21:45)
[2021-08-10] MEDS: ARTIFICIAL TEARS OP SCH (21:45)
[2021-08-10] MEDS: ATORVASTATIN 40 MG TAB PO SCH (21:45)
[2021-08-10] MEDS: MAGNESIUM OXIDE 400 MG TAB PO SCH (21:46)
[2021-08-10] MEDS: CARBIDOPA/LEVODOPA 25/100MG TAB PO SCH (21:46)
[2021-08-10] MEDS: FAMOTIDINE 20 MG TAB PO SCH (21:46)
[2021-08-10] MEDS: hydrALAZINE HCL 20 MG/ML VIAL IV PRN (23:41)
[2021-08-11] MEDS: LEVOTHYROXINE SODIUM 50 MCG TABLET PO SCH (06:07)
[2021-08-11 06:50] LABS: BUN Creatinine Ratio 14.8 (10-20); Calcium 9.4 mg/dl (8.5-10.1); Creatinine Clr Calc Pharmacy 53.1 ml/min; Est GFR (African American) 66.9 ml/min; Est GFR (Non-African American) 57.7 ml/min
[2021-08-11] MEDS ORDERED: INSULIN HUMAN 70% NPH/30% REGULAR SQ SCH (08:00)
[2021-08-11] MEDS: MAGNESIUM OXIDE 400 MG TAB PO SCH ×2 (08:46→20:27)
[2021-08-11] MEDS: FAMOTIDINE 20 MG TAB PO SCH ×2 (08:46→20:28)
[2021-08-11] MEDS: APIXABAN 2.5 MG TAB PO SCH ×2 (08:47→20:27)
[2021-08-11] MEDS: DULoxetine HCL 60 MG CAP PO SCH (08:47)
[2021-08-11] MEDS: CLOPIDOGREL BISULFATE 75 MG TAB PO SCH (08:47)
[2021-08-11] MEDS: lisinopril 20 MG TAB PO SCH (08:47)
[2021-08-11] MEDS: CARBIDOPA/LEVODOPA 25/100MG TAB PO SCH ×3 (08:47→20:27)
[2021-08-11] MEDS: FINASTERIDE 5 MG TAB PO SCH (08:47)
[2021-08-11] MEDS: ARTIFICIAL TEARS OP SCH ×2 (08:48→20:26)
[2021-08-11] MEDS: METHYLCELLULOSE POWDER 454 GM JAR PO SCH (08:48)
[2021-08-11] MEDS: INSULIN HUMAN NPH SC SCH ×2 (08:49→17:21)
[2021-08-11] MEDS: INSULIN ASPART PER UNIT SC SCH ×4 (08:50→20:25)
[2021-08-11] MEDS ORDERED: amLODIPine BESYLATE 5 MG TAB PO SCH (09:00)
--- NOTE | 2021-08-11 09:43 | Hospitalist Progress Note ---
Date of Service August 11, 2021 Assessment & Plan (1) Fall: Plan: -Unwitnessed ground level fall without LOC. -could be due to weakness, orthostasis no obvious signs of infection monitor for any hypo or hyperglycemia -PT/OT consult family interested in SNF rehab, maybe placement (2) Atrial fibrillation: Plan: -rates controlled -Continue Eliquis. no issues on tele, if stable in AM will move to medical floor (3) Coronary artery disease: Plan: -CABG in 2003 -Continue atorvastatin, clopidogrel, rosuvastatin. (4) Diabetes mellitus: Plan: -BGM 215 today. HgbA1c in April was 7.7 -Patient was d/c'd in April on Novolog 70/30 12 units BID. Son has been giving him 18 units BID because his sugars had consistently been high on 12. -Continue Novolog 70/30 with Novolog SS, monitor for hypo or hyperglycemia -Continue duloxetine for neuropathy. 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 -Continue Eliquis and Plavix. (6) Hypertension: Plan: BP quite elevated despite Lisinopril 20mg daily will add Norvasc 5mg daily some improvement in BP by end of the day monitor (7) Stage III chronic kidney disease: Plan: -Creatinine 1.1 today, at baseline -Avoid nephrotoxins, renally dose meds when appropriate -BMP in AM. (8) BPH (benign prostatic hyperplasia): Plan: -Continue finasteride. (9) Depression: Plan: -Continue duloxetine. (10) Hypothyroid: Plan: -Continue levothyroxine. (11) Dyslipidemia: Plan: -Continue rosuvastatin. (12) GERD (gastroesophageal reflux disease): Plan: -Continue Pepcid. 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 no acute change in mentation in aftermath of fall. -Continue Sinemet. (14) DVT prophylaxis: Plan: -SCDs and continue patient's Eliquis Plan: PT/OT evaluate for SNF rehab Admission and Anticipated Discharge Date Admission Date: August 10, 2021 Subjective patient is pleasant, has some slight issues with recent history but knows yung things states he lives with his son and daughter in law, they help care for him confirms he fell a few times recently he says he is eating well, denies fever/chills, chest pain, dyspnea, cough, abdominal symptoms reviewed labs BP elevated this AM, added Norvasc 5mg with decent response awaiting PT/OT evaluations, family mentioned SNF placement on admission Review of Systems Review of Systems: All systems reviewed & are unremarkable except as noted in Subjective Constitutional: + weakness Musculoskeletal: + muscle weakness Physical Exam Physical Exam: General: well developed, well nourished, no acute distress, comfortable Neck: supple, trachea midline, normal thyroid Lungs: clear to auscultation bilaterally, normal respiratory effort, no accessory muscle use, no distress Heart: regular S1 and S2, no murmur, peripheral pulses normal, capillary refill normal, no edema Abdomen: soft, NT, ND, + BS, no hepatomegaly, normal to percussion Extremities: normal in appearance, no cyanosis, no petechiae, strength is slightly diminished bilaterally Neuro: awake, cooperative, moves all extremities, no focal motor deficits, CN II-XII intact, sensation in extremities intact, normal speech Skin: warm, dry, no rash, normal turgor Psych: Awake, alert oriented x 3, euthymic affect Results & Data Results & Data ([facility]) Vital Signs (Past 12 Hours) Vital Signs Temp Pulse Resp BP Pulse Ox 08/11/21 07:04 36.4 C L 76 15 189/101 H 92 08/11/21 04:50 36.3 C L 78 24 178/89 H 95 08/10/21 22:31 36.4 C L 79 24 185/118 H 95 Laboratory Results Laboratory Results - last 24 hr 08/10/21 08/10/21 08/10/21 11:43 11:51 11:51 WBC 5.72 RBC 5.10 Hgb 15.8 Hct 46.0 MCV 90.2 MCH 31.0 MCHC 34.3 RDW Std Deviation 46.4 H RDW Coeff of Eben 14.0 Plt Count 110 L MPV 12.1 H Immature Gran % (Auto) 0.3 Neut % (Auto) 65.1 Lymph % (Auto) 22.7 Tw[place]gs % (Auto) 8.6 Eos % (Auto) 3.1 Baso % (Auto) 0.2 Neut # (Auto) 3.72 Lymph # (Auto) 1.30 [place]gs # (Auto) 0.49 Eos # (Auto) 0.18 Baso # (Auto) 0.01 Immature Gran # (Auto) 0.02 PT INR Sodium 137 Potassium 4.5 Chloride 105 Carbon Dioxide 24 Anion Gap 8 BUN 20 Creatinine 1.29 Est Cr Clr Drug Dosing 48.3 Est GFR ( Amer) 58.2 Est GFR (Non-Af Amer) 50.2 BUN/Creatinine Ratio 15.5 Glucose 214 H POC Glucose Calcium 9.5 Total Bilirubin 0.9 AST 17 ALT 11 Alkaline Phosphatase 92 Total Protein 7.0 Albumin 3.9 Globulin 3.1 Albumin/Globulin Ratio 1.3 Urine Color Urine Appearance Urine pH Ur Specific [place] Urine Protein Urine Glucose (UA) Urine Ketones Urine Blood Urine Nitrite Urine Bilirubin Urine Urobilinogen Ur Leukocyte Esterase Urine WBC (Auto) Urine RBC (Auto) U Hyaline Cast (Auto) U Epithel Cells (Auto) Urine Bacteria (Auto) SARS-CoV-2, RNA, NAAT NEGATIVE 08/10/21 08/10/21 08/10/21 11:51 13:51 20:08 WBC RBC Hgb Hct MCV MCH MCHC RDW Std Deviation RDW Coeff of Eben Plt Count MPV Immature Gran % (Auto) Neut % (Auto) Lymph % (Auto) [place] % (Auto) Eos % (Auto) Baso % (Auto) Neut # (Auto) Lymph # (Auto) [place] # (Auto) Eos # (Auto) Baso # (Auto) Immature Gran # (Auto) PT 10.9 INR 1.1 Sodium Potassium Chloride Carbon Dioxide Anion Gap BUN Creatinine Est Cr Clr Drug Dosing Est GFR ( Amer) Est GFR (Non-Af Amer) BUN/Creatinine Ratio Glucose POC Glucose 174 H Calcium Total Bilirubin AST ALT Alkaline Phosphatase Total Protein Albumin Globulin Albumin/Globulin Ratio Urine Color Yellow Urine Appearance Clear Urine pH 6.5 Ur Specific [place] 1.014 Urine Protein Trace H Urine Glucose (UA) 1+ H Urine Ketones Negative Urine Blood Negative Urine Nitrite Negative Urine Bilirubin Negative Urine Urobilinogen Negative Ur Leukocyte Esterase Negative Urine WBC (Auto) 1-5 Urine RBC (Auto) 0-4 U Hyaline Cast (Auto) 1-5 U Epithel Cells (Auto) 0-5 Urine Bacteria (Auto) Negative SARS-CoV-2, RNA, NAAT 08/11/21 08/11/21 08/11/21 05:22 07:03 07:58 WBC RBC Hgb Hct MCV MCH MCHC RDW Std Deviation RDW Coeff of Eben Plt Count MPV Immature Gran % (Auto) Neut % (Auto) Lymph % (Auto) [place]gs % (Auto) Eos % (Auto) Baso % (Auto) Neut # (Auto) Lymph # (Auto) [place] # (Auto) Eos # (Auto) Baso # (Auto) Immature Gran # (Auto) PT INR Sodium 138 Potassium Pending Chloride 105 Carbon Dioxide 27 Anion Gap 6 BUN 17 Creatinine 1.15 Est Cr Clr Drug Dosing 53.1 Est GFR ( Amer) 66.9 Est GFR (Non-Af Amer) 57.7 BUN/Creatinine Ratio 14.8 Glucose 190 H POC Glucose 178 H Calcium 9.4 Total Bilirubin AST ALT Alkaline Phosphatase Total Protein Albumin Globulin Albumin/Globulin Ratio Urine Color Urine Appearance Urine pH Ur Specific [place] Urine Protein Urine Glucose (UA) Urine Ketones Urine Blood Urine Nitrite Urine Bilirubin Urine Urobilinogen Ur Leukocyte Esterase Urine WBC (Auto) Urine RBC (Auto) U Hyaline Cast (Auto) U Epithel Cells (Auto) Urine Bacteria (Auto) SARS-CoV-2, RNA, NAAT Medications Administered Current Inpatient Medications Acetaminophen (Acetaminophen 325 Mg Tab) 650 mg PO Q4H PRN PRN Reason: Pain or Fever Stop: 09/09/21 19:31 Amlodipine Besylate (Amlodipine Besylate 5 Mg Tab) 5 mg PO QAM [facility] Stop: 09/10/21 08:59 Apixaban (Apixaban 2.5 Mg Tab) 2.5 mg PO BID [facility] Stop: 09/09/21 20:59 Last Admin: 08/11/21 08:47 Dose: 2.5 mg Documented by: Artificial Tears (Artificial Tears) 2 drops OP BID [facility] Stop: 09/09/21 20:59 Last Admin: 08/11/21 08:48 Dose: 2 drops Documented by: Atorvastatin Calcium (Atorvastatin 40 Mg Tab) 80 mg PO HS [facility] Stop: 09/09/21 20:59 Last Admin: 08/10/21 21:45 Dose: 80 mg Documented by: Carbidopa/Levodopa (Carbidopa/Levodopa 25/100mg Tab) 0.5 tab PO TID [facility] Stop: 09/09/21 20:59 Last Admin: 08/11/21 08:47 Dose: 0.5 tab Documented by: Clopidogrel Bisulfate (Clopidogrel Bisulfate 75 Mg Tab) 75 mg PO QAM [facility] Stop: 09/10/21 08:59 Last Admin: 08/11/21 08:47 Dose: 75 mg Documented by: Dextrose (Dextrose 50% 50 Ml Syringe) 25 - 50 ml IV UD PRN; Protocol PRN Reason: Hypoglycemia Protocol Stop: 09/09/21 15:24 Duloxetine HCl (Duloxetine Hcl 60 Mg Cap) 60 mg PO DAILY [facility] Stop: 09/10/21 08:59 Last Admin: 08/11/21 08:47 Dose: 60 mg Documented by: Famotidine (Famotidine 20 Mg Tab) 20 mg PO BID [facility] Stop: 09/09/21 20:59 Last Admin: 08/11/21 08:46 Dose: 20 mg Documented by: Finasteride (Finasteride 5 Mg Tab) 5 mg PO QAM [facility] Stop: 09/10/21 08:59 Last Admin: 08/11/21 08:47 Dose: 5 mg Documented by: Glucagon (Glucagon For Inj 1 Mg Vial) 1 mg SQ UD PRN; Protocol PRN Reason: Hypoglycemia Protocol Stop: 09/09/21 15:24 Glucose (Glucose 10 Tabs/Tube) 4 - 8 tabs PO UD PRN; Protocol PRN Reason: Hypoglycemia Protocol Stop: 09/09/21 15:24 Glucose (Glucose 40% Gel 15 Gm Tube) 15 - 30 gm PO UD PRN; Protocol PRN Reason: Hypoglycemia Protocol Stop: 09/09/21 15:24 Hydralazine HCl (Hydralazine Hcl 20 Mg/Ml Vial) 10 mg IV Q8 PRN PRN Reason: Blood Pressure - High Stop: 09/09/21 16:43 Last Admin: 08/10/21 23:41 Dose: 10 mg Documented by: Hydrocortisone (Hydrocortisone Hc 2.5% Crm 30gm Tube) 1 appln EXT DAILY PRN PRN Reason: hemorrhoids Stop: 09/09/21 19:31 Insulin Aspart (Insulin Aspart Per Unit) 0 units SC ACHS [facility] Stop: 09/09/21 16:29 Last Admin: 08/11/21 08:50 Dose: 1 units Documented by: Insulin Human NPH (Insulin Human Nph) 10 units SC BIDM [facility] Stop: 09/10/21 07:59 Last Admin: 08/11/21 08:49 Dose: 10 units Documented by: Levothyroxine Sodium (Levothyroxine Sodium 50 Mcg Tablet) 50 mcg PO DAILYBB [facility] Stop: 09/10/21 06:29 Last Admin: 08/11/21 06:07 Dose: 50 mcg Documented by: Lisinopril (Lisinopril 20 Mg Tab) 20 mg PO QAM [facility] Stop: 09/10/21 08:59 Last Admin: 08/11/21 08:47 Dose: 20 mg Documented by: Magnesium Oxide (Magnesium Oxide 400 Mg Tab) 400 mg PO BID [facility] Stop: 09/09/21 20:59 Last Admin: 08/11/21 08:46 Dose: 400 mg Documented by: Methylcellulose (Methylcellulose Powder 454 Gm Jar) 2 gm PO DAILY [facility] Stop: 09/10/21 08:59 Last Admin: 08/11/21 08:48 Dose: 2 gm Documented by: Miscellaneous (Carbohydrates For Hypoglycemia ) 15 - 30 gm PO UD PRN PRN Reason: Hypoglycemia Protocol Stop: 09/09/21 15:24 Ondansetron HCl (Ondansetron Inj 2 Mg/Ml 2 Ml Vial) 4 mg IV Q6H PRN PRN Reason: Nausea Stop: 09/09/21 19:31 Polyethylene Glycol (Polyethylene (Miralax) 17 Gm Pack) 17 gm PO DAILY PRN PRN Reason: Constipation Stop: 09/09/21 19:31 PG Care Time/CCT Total # of Minutes Spent Total Time Spent with Patient: Total time spent is greater than 50% in coordination of care (as documented) at patient's floor/unit and/or counseling patient: Coding Level of Care Code 83638 Subseq Hosp Care Lvl 3 Diagnoses Fall W19.XXXA Encounter type: initial encounter Atrial fibrillation I48.21 Atrial fibrillation type: permanent Coronary artery disease I25.10 Diabetes mellitus E11.9 Chronic kidney disease stage: stage 3 (moderate) Chronic kidney disease stage 3 subtype: stage 3a (GFR 45-59) Diabetes mellitus complication status: with kidney complications Diabetes mellitus usp insulin use: with long chain quiller tender use 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 I69.30 Hypertension I10 Hypertension type: unspecified Stage III chronic kidney disease N18.3 BPH (benign prostatic hyperplasia) N40.0 Depression F32.9 Hypothyroid E03.9 Hypothyroidism type: acquired Dyslipidemia E78.5 GERD (gastroesophageal reflux disease) K21.9 Esophagitis presence: esophagitis presence not specified Memory loss R41.3 DVT prophylaxis Z29.9 (1) Diabetes mellitus Chronic kidney disease stage: stage 3 (moderate) Chronic kidney disease stage 3 subtype: stage 3a (GFR 45-59) Diabetes mellitus complication status: with kidney complications Diabetes mellitus long chain quiller tender insulin use: with usp use Diabetes mellitus type: type 2 (2) Atrial fibrillation Atrial fibrillation type: permanent Qualified Code(s): I48.21 - Permanent atrial fibrillation (3) Hypothyroid Hypothyroidism type: acquired Qualified Code(s): E03.9 - Hypothyroidism, unspecified (4) GERD (gastroesophageal reflux disease) Esophagitis presence: esophagitis presence not specified Qualified Code(s): K21.9 - Gastro-esophageal reflux disease without esophagitis (5) Hypertension Hypertension type: unspecified Qualified Code(s): I10 - Essential (primary) hypertension (6) Fall Encounter type: initial encounter Qualified Code(s): W19.XXXA - Unspecified fall, initial encounter
[2021-08-11] MEDS: hydrALAZINE HCL 20 MG/ML VIAL IV PRN (20:25)
[2021-08-11] MEDS: ATORVASTATIN 40 MG TAB PO SCH (20:27)
[2021-08-12] MEDS: LEVOTHYROXINE SODIUM 50 MCG TABLET PO SCH (06:45)
[2021-08-12] MEDS: CARBIDOPA/LEVODOPA 25/100MG TAB PO SCH ×3 (08:13→21:29)
[2021-08-12] MEDS: FAMOTIDINE 20 MG TAB PO SCH ×2 (08:14→21:29)
[2021-08-12] MEDS: DULoxetine HCL 60 MG CAP PO SCH (08:14)
[2021-08-12] MEDS: CLOPIDOGREL BISULFATE 75 MG TAB PO SCH (08:14)
[2021-08-12] MEDS: lisinopril 20 MG TAB PO SCH (08:15)
[2021-08-12] MEDS: FINASTERIDE 5 MG TAB PO SCH (08:15)
[2021-08-12] MEDS: APIXABAN 2.5 MG TAB PO SCH ×2 (08:15→21:29)
[2021-08-12] MEDS: ARTIFICIAL TEARS OP SCH ×2 (08:16→21:30)
[2021-08-12] MEDS: METHYLCELLULOSE POWDER 454 GM JAR PO SCH (08:16)
[2021-08-12] MEDS: MAGNESIUM OXIDE 400 MG TAB PO SCH ×2 (08:16→21:29)
[2021-08-12] MEDS: INSULIN HUMAN NPH SC SCH ×2 (08:18→16:49)
[2021-08-12] MEDS: INSULIN ASPART PER UNIT SC SCH ×4 (08:23→21:30)
[2021-08-12 08:26] LABS: Calcium 9.4 mg/dl (8.5-10.1); Est GFR (African American) 79.2 ml/min; Est GFR (Non-African American) 68.3 ml/min; Potassium 3.9 mmol/L (3.5-5.1)
[2021-08-12] MEDS: amLODIPine BESYLATE 5 MG TAB PO SCH (09:00)
--- NOTE | 2021-08-12 12:09 | Hospitalist Progress Note ---
Date of Service August 12, 2021 Assessment & Plan (1) Fall: Plan: -Unwitnessed ground level fall without LOC. -could be due to weakness, orthostasis no obvious signs of infection monitor for any hypo or hyperglycemia: no issues -PT/OT consult family interested in SNF rehab, maybe placement change to full admission move to medical floor (2) Atrial fibrillation: Plan: -rates controlled -Continue Eliquis. no issues on tele, move to medical (3) Coronary artery disease: Plan: -CABG in 2003 -Continue atorvastatin, clopidogrel, rosuvastatin. (4) Diabetes mellitus: Plan: -Patient was d/c'd in April on Novolog 70/30 12 units BID. Son has been giving him 18 units BID because his sugars had consistently been high on 12. -Continue Novolog 70/30 with Novolog SS, monitor for hypo or hyperglycemia -Continue duloxetine for neuropathy. 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 -Continue Eliquis and Plavix. (6) Hypertension: Plan: increase Norvasc to 10mg daily today and increase Lisinopril to 40mg (7) Stage III chronic kidney disease: Plan: -Creatinine 1.0 today, at baseline -Avoid nephrotoxins, renally dose meds when appropriate -BMP in AM. (8) BPH (benign prostatic hyperplasia): Plan: -Continue finasteride. (9) Depression: Plan: -Continue duloxetine. (10) Hypothyroid: Plan: -Continue levothyroxine. (11) Dyslipidemia: Plan: -Continue rosuvastatin. (12) GERD (gastroesophageal reflux disease): Plan: -Continue Pepcid. 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 no acute change in mentation in aftermath of fall. -Continue Sinemet. (14) DVT prophylaxis: Plan: -SCDs and continue patient's Eliquis Plan: PT/OT evaluate for SNF rehab Admission and Anticipated Discharge Date Admission Date: August 10, 2021 Subjective patient is pleasant, no complaints eating a little better, breathing is stable will change to full admission as family looking for SNF rehab Review of Systems Review of Systems: All systems reviewed & are unremarkable except as noted in Subjective Constitutional: + fatigue and + weakness; no fever Respiratory: no cough and no dyspnea Cardiovascular: no chest pain and no edema Gastrointestinal: no abdominal pain, no nausea, no vomiting, no constipation and no diarrhea/loose stools Physical Exam Physical Exam: General: well developed, well nourished, no acute distress, comfortable Neck: supple, trachea midline, normal thyroid Lungs: clear to auscultation bilaterally, normal respiratory effort, no accessory muscle use, no distress Heart: regular S1 and S2, no murmur, peripheral pulses normal, capillary refill normal, no edema Abdomen: soft, NT, ND, + BS, no hepatomegaly, normal to percussion Extremities: normal in appearance, no cyanosis, no petechiae, strength is slightly diminished bilaterally Neuro: awake, cooperative, moves all extremities, no focal motor deficits, CN II-XII intact, sensation in extremities intact, normal speech Skin: warm, dry, no rash, normal turgor Psych: Awake, alert oriented x 3, euthymic affect Results & Data Results & Data ([facility]) Vital Signs (Past 12 Hours) Vital Signs Temp Pulse Pulse Resp BP Pulse Ox 08/12/21 11:03 36.5 C 71 18 178/109 H 97 08/12/21 10:07 75 08/12/21 07:07 36.7 C 76 18 154/99 H 96 08/12/21 03:03 36.8 C 77 18 167/92 H 95 Laboratory Results Laboratory Results - last 24 hr 08/11/21 08/11/21 08/12/21 16:12 19:38 06:56 Sodium 137 Potassium 3.9 Chloride 106 Carbon Dioxide 25 Anion Gap 6 BUN 19 Creatinine 1.00 Est Cr Clr Drug Dosing 61.0 Est GFR ( Amer) 79.2 Est GFR (Non-Af Amer) 68.3 BUN/Creatinine Ratio 19.0 Glucose 180 H POC Glucose 159 H 172 H Calcium 9.4 08/12/21 08/12/21 07:13 10:58 Sodium Potassium Chloride Carbon Dioxide Anion Gap BUN Creatinine Est Cr Clr Drug Dosing Est GFR ( Amer) Est GFR (Non-Af Amer) BUN/Creatinine Ratio Glucose POC Glucose 171 H 205 H Calcium Medications Administered Current Inpatient Medications Acetaminophen (Acetaminophen 325 Mg Tab) 650 mg PO Q4H PRN PRN Reason: Pain or Fever Stop: 09/09/21 19:31 Amlodipine Besylate (Amlodipine Besylate 5 Mg Tab) 10 mg [facility] [place]: 09/11/21 08:59 Last Admin: 08/12/21 09:00 Dose: 10 mg Documented by: Apixaban (Apixaban 2.5 Mg Tab) 2.5 mg PO BID [facility] Stop: 09/09/21 20:59 Last Admin: 08/12/21 08:15 Dose: 2.5 mg Documented by: Artificial Tears (Artificial Tears) 2 drops OP BID [facility] Stop: 09/09/21 20:59 Last Admin: 08/12/21 08:16 Dose: 2 drops Documented by: Atorvastatin Calcium (Atorvastatin 40 Mg Tab) 80 mg PO HS [facility] Stop: 09/09/21 20:59 Last Admin: 08/11/21 20:27 Dose: 80 mg Documented by: Carbidopa/Levodopa (Carbidopa/Levodopa 25/100mg Tab) 0.5 tab PO TID [facility] Stop: 09/09/21 20:59 Last Admin: 08/12/21 08:13 Dose: 0.5 tab Documented by: Clopidogrel Bisulfate (Clopidogrel Bisulfate 75 Mg Tab) 75 mg PO QAM [facility] Stop: 09/10/21 08:59 Last Admin: 08/12/21 08:14 Dose: 75 mg Documented by: Dextrose (Dextrose 50% 50 Ml Syringe) 25 - 50 ml IV UD PRN; Protocol PRN Reason: Hypoglycemia Protocol Stop: 09/09/21 15:24 Duloxetine HCl (Duloxetine Hcl 60 Mg Cap) 60 mg PO DAILY [facility] Stop: 09/10/21 08:59 Last Admin: 08/12/21 08:14 Dose: 60 mg Documented by: Famotidine (Famotidine 20 Mg Tab) 20 mg PO BID [facility] Stop: 09/09/21 20:59 Last Admin: 08/12/21 08:14 Dose: 20 mg Documented by: Finasteride (Finasteride 5 Mg Tab) 5 mg PO QAM [facility] Stop: 09/10/21 08:59 Last Admin: 08/12/21 08:15 Dose: 5 mg Documented by: Glucagon (Glucagon For Inj 1 Mg Vial) 1 mg SQ UD PRN; Protocol PRN Reason: Hypoglycemia Protocol Stop: 09/09/21 15:24 Glucose (Glucose 10 Tabs/Tube) 4 - 8 tabs PO UD PRN; Protocol PRN Reason: Hypoglycemia Protocol Stop: 09/09/21 15:24 Glucose (Glucose 40% Gel 15 Gm Tube) 15 - 30 gm PO UD PRN; Protocol PRN Reason: Hypoglycemia Protocol Stop: 09/09/21 15:24 Hydralazine HCl (Hydralazine Hcl 20 Mg/Ml Vial) 10 mg IV Q8 PRN PRN Reason: Blood Pressure - High Stop: 09/09/21 16:43 Last Admin: 08/11/21 20:25 Dose: 10 mg Documented by: Hydrocortisone (Hydrocortisone Hc 2.5% Crm 30gm Tube) 1 appln EXT DAILY PRN PRN Reason: hemorrhoids Stop: 09/09/21 19:31 Insulin Aspart (Insulin Aspart Per Unit) 0 units SC ACHS [facility] Stop: 09/09/21 16:29 Last Admin: 08/12/21 12:00 Dose: 3 units Documented by: Insulin Human NPH (Insulin Human Nph) 10 units SC BIDM [facility] Stop: 09/10/21 07:59 Last Admin: 08/12/21 08:18 Dose: 10 units Documented by: Levothyroxine Sodium (Levothyroxine Sodium 50 Mcg Tablet) 50 mcg PO DAILYBB [facility] Stop: 09/10/21 06:29 Last Admin: 08/12/21 06:45 Dose: 50 mcg Documented by: Lisinopril (Lisinopril 20 Mg Tab) 20 mg PO QAM [facility] Stop: 09/10/21 08:59 Last Admin: 08/12/21 08:15 Dose: 20 mg Documented by: Magnesium Oxide (Magnesium Oxide 400 Mg Tab) 400 mg PO BID [facility] Stop: 09/09/21 20:59 Last Admin: 08/12/21 08:16 Dose: 400 mg Documented by: Methylcellulose (Methylcellulose Powder 454 Gm Jar) 2 gm PO DAILY [facility] Stop: 09/10/21 08:59 Last Admin: 08/12/21 08:16 Dose: 2 gm Documented by: Miscellaneous (Carbohydrates For Hypoglycemia ) 15 - 30 gm PO UD PRN PRN Reason: Hypoglycemia Protocol Stop: 09/09/21 15:24 Ondansetron HCl (Ondansetron Inj 2 Mg/Ml 2 Ml Vial) 4 mg IV Q6H PRN PRN Reason: Nausea Stop: 09/09/21 19:31 Polyethylene Glycol (Polyethylene (Miralax) 17 Gm Pack) 17 gm PO DAILY PRN PRN Reason: Constipation Stop: 09/09/21 19:31 PG Care Time/CCT Total # of Minutes Spent Total Time Spent with Patient: Total time spent is greater than 50% in coordination of care (as documented) at patient's floor/unit and/or counseling patient: Coding Level of Care Code 50995 Subseq Hosp Care Lvl 2 Diagnoses Fall W19.XXXA Encounter type: initial encounter Atrial fibrillation I48.21 Atrial fibrillation type: permanent Coronary artery disease I25.10 Diabetes mellitus E11.9 Chronic kidney disease stage: stage 3 (moderate) Chronic kidney disease stage 3 subtype: stage 3a (GFR 45-59) Diabetes mellitus complication status: with kidney complications Diabetes mellitus fci insulin use: with fci use 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 I69.30 Hypertension I10 Hypertension type: unspecified Stage III chronic kidney disease N18.3 BPH (benign prostatic hyperplasia) N40.0 Depression F32.9 Hypothyroid E03.9 Hypothyroidism type: acquired Dyslipidemia E78.5 GERD (gastroesophageal reflux disease) K21.9 Esophagitis presence: esophagitis presence not specified Memory loss R41.3 DVT prophylaxis Z29.9 (1) Diabetes mellitus Chronic kidney disease stage: stage 3 (moderate) Chronic kidney disease stage 3 subtype: stage 3a (GFR 45-59) Diabetes mellitus complication status: with kidney complications 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: with intermodal customer service use Diabetes mellitus type: type 2 (2) Atrial fibrillation Atrial fibrillation type: permanent Qualified Code(s): I48.21 - Permanent atrial fibrillation (3) Hypothyroid Hypothyroidism type: acquired Qualified Code(s): E03.9 - Hypothyroidism, unspecified (4) GERD (gastroesophageal reflux disease) Esophagitis presence: esophagitis presence not specified Qualified Code(s): K21.9 - Gastro-esophageal reflux disease without esophagitis (5) Hypertension Hypertension type: unspecified Qualified Code(s): I10 - Essential (primary) hypertension (6) Fall Encounter type: initial encounter Qualified Code(s): W19.XXXA - Unspecified fall, initial encounter
[2021-08-12] MEDS: ATORVASTATIN 40 MG TAB PO SCH (21:29)
[2021-08-12] MEDS: hydrALAZINE HCL 20 MG/ML VIAL IV PRN (23:35)
[2021-08-13] MEDS: LEVOTHYROXINE SODIUM 50 MCG TABLET PO SCH (05:44)
[2021-08-13] MEDS: MAGNESIUM OXIDE 400 MG TAB PO SCH ×2 (08:55→20:17)
[2021-08-13] MEDS: FAMOTIDINE 20 MG TAB PO SCH ×2 (08:56→21:26)
[2021-08-13] MEDS: CARBIDOPA/LEVODOPA 25/100MG TAB PO SCH ×3 (08:56→20:17)
[2021-08-13] MEDS: APIXABAN 2.5 MG TAB PO SCH ×2 (08:56→20:17)
[2021-08-13] MEDS: FINASTERIDE 5 MG TAB PO SCH (08:57)
[2021-08-13] MEDS: CLOPIDOGREL BISULFATE 75 MG TAB PO SCH (08:57)
[2021-08-13] MEDS: DULoxetine HCL 60 MG CAP PO SCH (08:58)
[2021-08-13] MEDS: amLODIPine BESYLATE 5 MG TAB PO SCH (08:59)
[2021-08-13] MEDS: METHYLCELLULOSE POWDER 454 GM JAR PO SCH (09:00)
[2021-08-13] MEDS: ARTIFICIAL TEARS OP SCH ×2 (09:00→20:17)
[2021-08-13] MEDS: INSULIN HUMAN NPH SC SCH ×2 (09:01→17:50)
[2021-08-13] MEDS: INSULIN ASPART PER UNIT SC SCH ×4 (09:04→21:26)
[2021-08-13] MEDS: lisinopril 40 MG TAB PO SCH (09:08)
[2021-08-13 09:24] LABS: BUN Creatinine Ratio 16.7 (10-20); Calcium 9.3 mg/dl (8.5-10.1); Creatinine Clr Calc Pharmacy 50.8 ml/min; Est GFR (African American) 63.5 ml/min; Est GFR (Non-African American) 54.8 ml/min
--- NOTE | 2021-08-13 10:02 | Hospitalist Progress Note ---
Date of Service August 13, 2021 Assessment & Plan (1) Fall: Plan: -Unwitnessed ground level fall without LOC. -could be due to weakness, orthostasis no obvious signs of infection monitor for any hypo or hyperglycemia: no issues -PT/OT consult family interested in SNF rehab, maybe placement looking into [facility] and [facility] (2) Atrial fibrillation: Plan: -rates controlled -Continue Eliquis. no issues on tele, moved to medical (3) Coronary artery disease: Plan: -CABG in 2003 -Continue atorvastatin, clopidogrel, rosuvastatin. (4) Diabetes mellitus: Plan: -Continue NPH 10 units BID, Novolog SS -Continue duloxetine for neuropathy. 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 -Continue Eliquis and Plavix. (6) Hypertension: Plan: increased Norvasc to 10mg daily and increased Lisinopril to 40mg BP is much better today (7) Stage III chronic kidney disease: Plan: -Creatinine 1.2 today, at baseline -Avoid nephrotoxins, renally dose meds when appropriate (8) BPH (benign prostatic hyperplasia): Plan: -Continue finasteride. (9) Depression: Plan: -Continue duloxetine. (10) Hypothyroid: Plan: -Continue levothyroxine. (11) Dyslipidemia: Plan: -Continue rosuvastatin. (12) GERD (gastroesophageal reflux disease): Plan: -Continue Pepcid. 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 no acute change in mentation in aftermath of fall. -Continue Sinemet. (14) DVT prophylaxis: Plan: -SCDs and continue patient's Eliquis Plan: PT/OT evaluate for SNF rehab and eventual SNF placement referrals made to [facility] and [facility] Admission and Anticipated Discharge Date Admission Date: August 12, 2021 Subjective patient is doing fine, no acute issues told him we are waiting to get him into rehab, he understands he asked about his son, wanted to know his son was okay I told him his son is fine, he is at home Review of Systems Review of Systems: All systems reviewed & are unremarkable except as noted in Subjective Physical Exam Physical Exam: General: well developed, well nourished, no acute distress, comfortable EENT: very hard of hearing Neck: supple, trachea midline, normal thyroid Lungs: clear to auscultation bilaterally, normal respiratory effort, no accessory muscle use, no distress Heart: regular S1 and S2, no murmur, peripheral pulses normal, capillary refill normal, no edema Abdomen: soft, NT, ND, + BS, no hepatomegaly, normal to percussion Extremities: normal in appearance, no cyanosis, no petechiae, strength is slightly diminished bilaterally Neuro: awake, cooperative, moves all extremities, no focal motor deficits, CN II-XII intact, sensation in extremities intact, normal speech Skin: warm, dry, no rash, normal turgor Psych: Awake, alert oriented x 3, euthymic affect Results & Data Results & Data ([facility]) Vital Signs (Past 12 Hours) Vital Signs Temp Pulse Pulse Pulse Resp BP BP 08/13/21 07:55 36.3 C L 81 18 125/82 08/13/21 01:29 85 122/76 08/12/21 23:28 92 H 165/103 H 08/12/21 22:12 175/99 H 08/12/21 22:11 36.7 C 73 18 196/119 H Pulse Ox 08/13/21 07:55 94 08/13/21 01:29 08/12/21 23:28 08/12/21 22:12 08/12/21 22:11 97 Laboratory Results Laboratory Results - last 24 hr 08/12/21 08/12/21 08/12/21 10:58 16:00 20:55 Sodium Potassium Chloride Carbon Dioxide Anion Gap BUN Creatinine Est Cr Clr Drug Dosing Est GFR ( Amer) Est GFR (Non-Af Amer) BUN/Creatinine Ratio Glucose POC Glucose 205 H 258 H 183 H Calcium 08/13/21 08/13/21 07:59 08:11 Sodium 137 Potassium Chloride 106 Carbon Dioxide 24 Anion Gap 7 BUN 20 Creatinine 1.20 Est Cr Clr Drug Dosing 50.8 Est GFR ( Amer) 63.5 Est GFR (Non-Af Amer) 54.8 BUN/Creatinine Ratio 16.7 Glucose 165 H POC Glucose 154 H Calcium 9.3 Medications Administered Current Inpatient Medications Acetaminophen (Acetaminophen 325 Mg Tab) 650 mg PO Q4H PRN PRN Reason: Pain or Fever Stop: 09/09/21 19:31 Amlodipine Besylate (Amlodipine Besylate 5 Mg Tab) 10 mg PO QAM [facility] Stop: 09/11/21 08:59 Last Admin: 08/13/21 08:59 Dose: 10 mg Documented by: Apixaban (Apixaban 2.5 Mg Tab) 2.5 mg PO BID [facility] Stop: 09/09/21 20:59 Last Admin: 08/13/21 08:56 Dose: 2.5 mg Documented by: Artificial Tears (Artificial Tears) 2 drops OP BID [facility] Stop: 09/09/21 20:59 Last Admin: 08/13/21 09:00 Dose: 2 drops Documented by: Atorvastatin Calcium (Atorvastatin 40 Mg Tab) 80 mg PO HS [facility] Stop: 09/09/21 20:59 Last Admin: 08/12/21 21:29 Dose: 80 mg Documented by: Carbidopa/Levodopa (Carbidopa/Levodopa 25/100mg Tab) 0.5 tab PO TID [facility] Stop: 09/09/21 20:59 Last Admin: 08/13/21 08:56 Dose: 0.5 tab Documented by: Clopidogrel Bisulfate (Clopidogrel Bisulfate 75 Mg Tab) 75 mg PO QAM [facility] Stop: 09/10/21 08:59 Last Admin: 08/13/21 08:57 Dose: 75 mg Documented by: Dextrose (Dextrose 50% 50 Ml Syringe) 25 - 50 ml IV UD PRN; Protocol PRN Reason: Hypoglycemia Protocol Stop: 09/09/21 15:24 Duloxetine HCl (Duloxetine Hcl 60 Mg Cap) 60 mg PO DAILY [facility] Stop: 09/10/21 08:59 Last Admin: 08/13/21 08:58 Dose: 60 mg Documented by: Famotidine (Famotidine 20 Mg Tab) 20 mg PO BID [facility] Stop: 09/09/21 20:59 Last Admin: 08/13/21 08:56 Dose: 20 mg Documented by: Finasteride (Finasteride 5 Mg Tab) 5 mg PO QAM [facility] Stop: 09/10/21 08:59 Last Admin: 08/13/21 08:57 Dose: 5 mg Documented by: Glucagon (Glucagon For Inj 1 Mg Vial) 1 mg SQ UD PRN; Protocol PRN Reason: Hypoglycemia Protocol Stop: 09/09/21 15:24 Glucose (Glucose 10 Tabs/Tube) 4 - 8 tabs PO UD PRN; Protocol PRN Reason: Hypoglycemia Protocol Stop: 09/09/21 15:24 Glucose (Glucose 40% Gel 15 Gm Tube) 15 - 30 gm PO UD PRN; Protocol PRN Reason: Hypoglycemia Protocol Stop: 09/09/21 15:24 Hydralazine HCl (Hydralazine Hcl 20 Mg/Ml Vial) 10 mg IV Q8 PRN PRN Reason: Blood Pressure - High Stop: 09/09/21 16:43 Last Admin: 08/12/21 23:35 Dose: 10 mg Documented by: Hydrocortisone (Hydrocortisone Hc 2.5% Crm 30gm Tube) 1 appln EXT DAILY PRN PRN Reason: hemorrhoids Stop: 09/09/21 19:31 Insulin Aspart (Insulin Aspart Per Unit) 0 units SC ACHS [facility] Stop: 09/09/21 16:29 Last Admin: 08/13/21 09:04 Dose: Not Given Documented by: Insulin Human NPH (Insulin Human Nph) 10 units SC BIDM [facility] Stop: 09/10/21 07:59 Last Admin: 08/13/21 09:01 Dose: 10 units Documented by: Levothyroxine Sodium (Levothyroxine Sodium 50 Mcg Tablet) 50 mcg PO DAILYBB [facility] Stop: 09/10/21 06:29 Last Admin: 08/13/21 05:44 Dose: 50 mcg Documented by: Lisinopril (Lisinopril 40 Mg Tab) 40 mg PO QAM [facility] Stop: 09/12/21 08:59 Last Admin: 08/13/21 09:08 Dose: 40 mg Documented by: Magnesium Oxide (Magnesium Oxide 400 Mg Tab) 400 mg PO BID [facility] Stop: 09/09/21 20:59 Last Admin: 08/13/21 08:55 Dose: 400 mg Documented by: Methylcellulose (Methylcellulose Powder 454 Gm Jar) 2 gm PO DAILY [facility] Stop: 09/10/21 08:59 Last Admin: 08/13/21 09:00 Dose: 2 gm Documented by: Miscellaneous (Carbohydrates For Hypoglycemia ) 15 - 30 gm PO UD PRN PRN Reason: Hypoglycemia Protocol Stop: 09/09/21 15:24 Ondansetron HCl (Ondansetron Inj 2 Mg/Ml 2 Ml Vial) 4 mg IV Q6H PRN PRN Reason: Nausea Stop: 09/09/21 19:31 Polyethylene Glycol (Polyethylene (Miralax) 17 Gm Pack) 17 gm PO DAILY PRN PRN Reason: Constipation Stop: 09/09/21 19:31 PG Care Time/CCT Total # of Minutes Spent Total Time Spent with Patient: Total time spent is greater than 50% in coordination of care (as documented) at patient's floor/unit and/or counseling patient: Coding Level of Care Code 03035 Subseq Hosp Care Lvl 2 Diagnoses Fall W19.XXXA Encounter type: initial encounter Atrial fibrillation I48.21 Atrial fibrillation type: permanent Coronary artery disease I25.10 Diabetes mellitus E11.9 Diabetes mellitus type: type 2 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: with 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 use Diabetes mellitus complication status: with kidney complications Chronic kidney disease stage: stage 3 (moderate) Chronic kidney disease stage 3 subtype: stage 3a (GFR 45-59) Chronic ischemic vertebrobasilar artery brainstem stroke I69.30 Hypertension I10 Hypertension type: unspecified Stage III chronic kidney disease N18.3 BPH (benign prostatic hyperplasia) N40.0 Depression F32.9 Hypothyroid E03.9 Hypothyroidism type: acquired Dyslipidemia E78.5 GERD (gastroesophageal reflux disease) K21.9 Esophagitis presence: esophagitis presence not specified Memory loss R41.3 DVT prophylaxis Z29.9 (1) Fall Encounter type: initial encounter Qualified Code(s): W19.XXXA - Unspecified fall, initial encounter (2) Atrial fibrillation Atrial fibrillation type: permanent Qualified Code(s): I48.21 - Permanent atrial fibrillation (3) Diabetes mellitus Diabetes mellitus type: type 2 Diabetes mellitus 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 insulin use: with 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 use Diabetes mellitus complication status: with kidney complications Chronic kidney disease stage: stage 3 (moderate) Chronic kidney disease stage 3 subtype: stage 3a (GFR 45-59) (4) Hypertension Hypertension type: unspecified Qualified Code(s): I10 - Essential (primary) hypertension (5) Hypothyroid Hypothyroidism type: acquired Qualified Code(s): E03.9 - Hypothyroidism, unspecified (6) GERD (gastroesophageal reflux disease) Esophagitis presence: esophagitis presence not specified Qualified Code(s): K21.9 - Gastro-esophageal reflux disease without esophagitis
[2021-08-13] MEDS: ATORVASTATIN 40 MG TAB PO SCH (20:17)
[2021-08-14] MEDS: LEVOTHYROXINE SODIUM 50 MCG TABLET PO SCH (05:34)
[2021-08-14] MEDS: amLODIPine BESYLATE 5 MG TAB PO SCH (08:17)
[2021-08-14] MEDS: ARTIFICIAL TEARS OP SCH ×2 (08:18→21:11)
[2021-08-14] MEDS: APIXABAN 2.5 MG TAB PO SCH ×2 (08:18→21:10)
[2021-08-14] MEDS: DULoxetine HCL 60 MG CAP PO SCH (08:18)
[2021-08-14] MEDS: CLOPIDOGREL BISULFATE 75 MG TAB PO SCH (08:18)
[2021-08-14] MEDS: MAGNESIUM OXIDE 400 MG TAB PO SCH ×2 (08:19→21:11)
[2021-08-14] MEDS: FAMOTIDINE 20 MG TAB PO SCH ×2 (08:19→21:10)
[2021-08-14] MEDS: lisinopril 40 MG TAB PO SCH (08:19)
[2021-08-14] MEDS: FINASTERIDE 5 MG TAB PO SCH (08:19)
[2021-08-14] MEDS: CARBIDOPA/LEVODOPA 25/100MG TAB PO SCH ×3 (08:20→21:10)
[2021-08-14] MEDS: INSULIN ASPART PER UNIT SC SCH ×4 (08:46→21:32)
[2021-08-14] MEDS: INSULIN HUMAN NPH SC SCH ×2 (08:47→18:10)
[2021-08-14] MEDS: METHYLCELLULOSE POWDER 454 GM JAR PO SCH (08:51)
--- NOTE | 2021-08-14 10:13 | Hospitalist Progress Note ---
Date of Service August 14, 2021 Assessment & Plan (1) Fall: Plan: -Unwitnessed ground level fall without LOC. -could be due to weakness, orthostasis no obvious signs of infection monitor for any hypo or hyperglycemia: no issues -PT/OT consult family interested in SNF rehab, maybe placement looking into [facility] and [facility], awaiting acceptance (2) Atrial fibrillation: Plan: -rates controlled -Continue Eliquis. no issues on tele, moved to medical (3) Coronary artery disease: Plan: -CABG in 2003 -Continue atorvastatin, clopidogrel, rosuvastatin. (4) Diabetes mellitus: Plan: -Continue NPH 10 units BID, Novolog SS, add carb ratio of 10 to see if it helps -Continue duloxetine for neuropathy. 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 -Continue Eliquis and Plavix. (6) Hypertension: Plan: increased Norvasc to 10mg daily and increased Lisinopril to 40mg BP is much better past two days (7) Stage III chronic kidney disease: Plan: -Creatinine 1.2 yesterday, baseline -Avoid nephrotoxins, renally dose meds when appropriate (8) BPH (benign prostatic hyperplasia): Plan: -Continue finasteride. (9) Depression: Plan: -Continue duloxetine. (10) Hypothyroid: Plan: -Continue levothyroxine. (11) Dyslipidemia: Plan: -Continue rosuvastatin. (12) GERD (gastroesophageal reflux disease): Plan: -Continue Pepcid. 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 no acute change in mentation in aftermath of fall. -Continue Sinemet. (14) DVT prophylaxis: Plan: -SCDs and continue patient's Eliquis Plan: PT/OT evaluate for SNF rehab and eventual SNF placement referrals made to [facility] and [facility] Admission and Anticipated Discharge Date Admission Date: August 12, 2021 Subjective no major issues today, ambulated to restroom with help of aide breathing well, no fever/chills, no GI symptoms, no chest pain hard of hearing which makes full ROS difficult will add carb coverage to sugar coverage Review of Systems Review of Systems: All systems reviewed & are unremarkable except as noted in Subjective Physical Exam Physical Exam: General: well developed, well nourished, no acute distress, comfortable EENT: very hard of hearing Neck: supple, trachea midline, normal thyroid Lungs: clear to auscultation bilaterally, normal respiratory effort, no accessory muscle use, no distress Heart: regular S1 and S2, no murmur, peripheral pulses normal, capillary refill normal, no edema Abdomen: soft, NT, ND, + BS, no hepatomegaly, normal to percussion Extremities: normal in appearance, no cyanosis, no petechiae, strength is slightly diminished bilaterally Neuro: awake, cooperative, moves all extremities, no focal motor deficits, CN II-XII intact, sensation in extremities intact, normal speech Skin: warm, dry, no rash, normal turgor Psych: Awake, alert oriented x 3, euthymic affect Results & Data Results & Data ([facility]) Vital Signs (Past 12 Hours) Vital Signs Temp Pulse Resp BP Pulse Ox 08/14/21 07:23 36.9 C 82 16 159/83 H 95 08/13/21 22:42 37.1 C 84 16 128/77 97 Laboratory Results Laboratory Results - last 24 hr 08/13/21 08/13/21 08/13/21 10:21 12:14 17:41 Potassium 4.3 POC Glucose 236 H 190 H 08/13/21 08/14/21 20:43 08:06 Potassium POC Glucose 268 H 202 H Medications Administered Current Inpatient Medications Acetaminophen (Acetaminophen 325 Mg Tab) 650 mg PO Q4H PRN PRN Reason: Pain or Fever Stop: 09/09/21 19:31 Amlodipine Besylate (Amlodipine Besylate 5 Mg Tab) 10 mg PO QAM [facility] Stop: 09/11/21 08:59 Last Admin: 08/14/21 08:17 Dose: 10 mg Documented by: Apixaban (Apixaban 2.5 Mg Tab) 2.5 mg PO BID [facility] Stop: 09/09/21 20:59 Last Admin: 08/14/21 08:18 Dose: 2.5 mg Documented by: Artificial Tears (Artificial Tears) 2 drops OP BID [facility] Stop: 09/09/21 20:59 Last Admin: 08/14/21 08:18 Dose: 2 drops Documented by: Atorvastatin Calcium (Atorvastatin 40 Mg Tab) 80 mg PO HS [facility] Stop: 09/09/21 20:59 Last Admin: 08/13/21 20:17 Dose: 80 mg Documented by: Carbidopa/Levodopa (Carbidopa/Levodopa 25/100mg Tab) 0.5 tab PO TID REPLACED BY [facility] Stop: 09/09/21 20:59 Last Admin: 08/14/21 08:20 Dose: 0.5 tab Documented by: Clopidogrel Bisulfate (Clopidogrel Bisulfate 75 Mg Tab) 75 mg PO QAM REPLACED BY [facility] Stop: 09/10/21 08:59 Last Admin: 08/14/21 08:18 Dose: 75 mg Documented by: Dextrose (Dextrose 50% 50 Ml Syringe) 25 - 50 ml IV UD PRN; Protocol PRN Reason: Hypoglycemia Protocol Stop: 09/09/21 15:24 Duloxetine HCl (Duloxetine Hcl 60 Mg Cap) 60 mg PO DAILY REPLACED BY [facility] Stop: 09/10/21 08:59 Last Admin: 08/14/21 08:18 Dose: 60 mg Documented by: Famotidine (Famotidine 20 Mg Tab) 20 mg PO BID REPLACED BY [facility] Stop: 09/09/21 20:59 Last Admin: 08/14/21 08:19 Dose: 20 mg Documented by: Finasteride (Finasteride 5 Mg Tab) 5 mg PO QAM REPLACED BY [facility] Stop: 09/10/21 08:59 Last Admin: 08/14/21 08:19 Dose: 5 mg Documented by: Glucagon (Glucagon For Inj 1 Mg Vial) 1 mg SQ UD PRN; Protocol PRN Reason: Hypoglycemia Protocol Stop: 09/09/21 15:24 Glucose (Glucose 10 Tabs/Tube) 4 - 8 tabs PO UD PRN; Protocol PRN Reason: Hypoglycemia Protocol Stop: 09/09/21 15:24 Glucose (Glucose 40% Gel 15 Gm Tube) 15 - 30 gm PO UD PRN; Protocol PRN Reason: Hypoglycemia Protocol Stop: 09/09/21 15:24 Hydralazine HCl (Hydralazine Hcl 20 Mg/Ml Vial) 10 mg IV Q8 PRN PRN Reason: Blood Pressure - High Stop: 09/09/21 16:43 Last Admin: 08/12/21 23:35 Dose: 10 mg Documented by: Hydrocortisone (Hydrocortisone Hc 2.5% Crm 30gm Tube) 1 appln EXT DAILY PRN PRN Reason: hemorrhoids Stop: 09/09/21 19:31 Insulin Aspart (Insulin Aspart Per Unit) 0 units SC MERGED WITH [facility] REPLACED BY [facility] Stop: 09/09/21 16:29 Last Admin: 08/14/21 08:46 Dose: 7 units Documented by: Insulin Human NPH (Insulin Human Nph) 10 units SC BIDM REPLACED BY [facility] Stop: 09/10/21 07:59 Last Admin: 08/14/21 08:47 Dose: 10 units Documented by: Levothyroxine Sodium (Levothyroxine Sodium 50 Mcg Tablet) 50 mcg PO DAILYBB REPLACED BY [facility] Stop: 09/10/21 06:29 Last Admin: 08/14/21 05:34 Dose: 50 mcg Documented by: Lisinopril (Lisinopril 40 Mg Tab) 40 mg PO QAM REPLACED BY [facility] Stop: 09/12/21 08:59 Last Admin: 08/14/21 08:19 Dose: 40 mg Documented by: Magnesium Oxide (Magnesium Oxide 400 Mg Tab) 400 mg PO BID REPLACED BY [facility] Stop: 09/09/21 20:59 Last Admin: 08/14/21 08:19 Dose: 400 mg Documented by: Methylcellulose (Methylcellulose Powder 454 Gm Jar) 2 gm PO DAILY REPLACED BY [facility] Stop: 09/10/21 08:59 Last Admin: 08/14/21 08:51 Dose: 2 gm Documented by: Miscellaneous (Carbohydrates For Hypoglycemia ) 15 - 30 gm PO UD PRN PRN Reason: Hypoglycemia Protocol Stop: 09/09/21 15:24 Ondansetron HCl (Ondansetron Inj 2 Mg/Ml 2 Ml Vial) 4 mg IV Q6H PRN PRN Reason: Nausea Stop: 09/09/21 19:31 Polyethylene Glycol (Polyethylene (Miralax) 17 Gm Pack) 17 gm PO DAILY PRN PRN Reason: Constipation Stop: 09/09/21 19:31 PG Care Time/CCT Total # of Minutes Spent Total Time Spent with Patient: Total time spent is greater than 50% in coordination of care (as documented) at patient's floor/unit and/or counseling patient: Coding Level of Care Code 11162 Subseq Hosp Care Lvl 2 Diagnoses Fall W19.XXXA Encounter type: initial encounter Atrial fibrillation I48.21 Atrial fibrillation type: permanent Coronary artery disease I25.10 Diabetes mellitus E11.9 Chronic kidney disease stage: stage 3 (moderate) Chronic kidney disease stage 3 subtype: stage 3a (GFR 45-59) Diabetes mellitus complication status: with kidney complications Diabetes mellitus residential insulin use: with residential use 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 I69.30 Hypertension I10 Hypertension type: unspecified Stage III chronic kidney disease N18.3 BPH (benign prostatic hyperplasia) N40.0 Depression F32.9 Hypothyroid E03.9 Hypothyroidism type: acquired Dyslipidemia E78.5 GERD (gastroesophageal reflux disease) K21.9 Esophagitis presence: esophagitis presence not specified Memory loss R41.3 DVT prophylaxis Z29.9 (1) Diabetes mellitus Chronic kidney disease stage: stage 3 (moderate) Chronic kidney disease stage 3 subtype: stage 3a (GFR 45-59) Diabetes mellitus complication status: with kidney complications 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: with buttermaker continuous churn use Diabetes mellitus type: type 2 (2) Atrial fibrillation Atrial fibrillation type: permanent Qualified Code(s): I48.21 - Permanent atrial fibrillation (3) Hypothyroid Hypothyroidism type: acquired Qualified Code(s): E03.9 - Hypothyroidism, unspecified (4) GERD (gastroesophageal reflux disease) Esophagitis presence: esophagitis presence not specified Qualified Code(s): K21.9 - Gastro-esophageal reflux disease without esophagitis (5) Hypertension Hypertension type: unspecified Qualified Code(s): I10 - Essential (primary) hypertension (6) Fall Encounter type: initial encounter Qualified Code(s): W19.XXXA - Unspecified fall, initial encounter
[2021-08-14] MEDS: ACETAMINOPHEN 325 MG TAB PO PRN (13:41)
[2021-08-14] MEDS: ATORVASTATIN 40 MG TAB PO SCH (21:10)
[2021-08-15] MEDS: LEVOTHYROXINE SODIUM 50 MCG TABLET PO SCH (05:13)
[2021-08-15] MEDS: APIXABAN 2.5 MG TAB PO SCH ×2 (07:58→20:38)
[2021-08-15] MEDS: DULoxetine HCL 60 MG CAP PO SCH (07:58)
[2021-08-15] MEDS: FAMOTIDINE 20 MG TAB PO SCH ×2 (07:59→20:38)
[2021-08-15] MEDS: amLODIPine BESYLATE 5 MG TAB PO SCH (08:00)
[2021-08-15] MEDS: lisinopril 40 MG TAB PO SCH (08:00)
[2021-08-15] MEDS: CARBIDOPA/LEVODOPA 25/100MG TAB PO SCH ×3 (08:01→20:37)
[2021-08-15] MEDS: FINASTERIDE 5 MG TAB PO SCH (08:02)
[2021-08-15] MEDS: ARTIFICIAL TEARS OP SCH ×2 (08:02→20:39)
[2021-08-15] MEDS: CLOPIDOGREL BISULFATE 75 MG TAB PO SCH (08:02)
[2021-08-15] MEDS: MAGNESIUM OXIDE 400 MG TAB PO SCH ×2 (08:02→20:38)
[2021-08-15] MEDS: METHYLCELLULOSE POWDER 454 GM JAR PO SCH (08:05)
[2021-08-15] MEDS: INSULIN ASPART PER UNIT SC SCH ×4 (08:44→20:42)
[2021-08-15] MEDS: INSULIN HUMAN NPH SC SCH ×2 (08:47→17:46)
[2021-08-15] MEDS: ACETAMINOPHEN 325 MG TAB PO PRN (13:23)
--- NOTE | 2021-08-15 13:40 | Hospitalist Progress Note ---
Date of Service August 15, 2021 Assessment & Plan (1) Fall: Plan: -Unwitnessed ground level fall without LOC. -could be due to weakness, orthostasis no obvious signs of infection monitor for any hypo or hyperglycemia: no issues -PT/OT consult family interested in SNF rehab, maybe placement looking into [facility] and [facility], awaiting acceptance (2) Atrial fibrillation: Plan: -rates controlled -Continue Eliquis. no issues on tele, moved to medical (3) Coronary artery disease: Plan: -CABG in 2003 -Continue atorvastatin, clopidogrel, rosuvastatin. (4) Diabetes mellitus: Plan: -Continue NPH 10 units BID, Novolog SS, add carb ratio of 10, somewhat better control -Continue duloxetine for neuropathy. 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 -Continue Eliquis and Plavix. (6) Hypertension: Plan: increased Norvasc to 10mg daily and increased Lisinopril to 40mg BP is better past three days (7) Stage III chronic kidney disease: Plan: -Creatinine 1.2 08/13, baseline -Avoid nephrotoxins, renally dose meds when appropriate (8) BPH (benign prostatic hyperplasia): Plan: -Continue finasteride. (9) Depression: Plan: -Continue duloxetine. (10) Hypothyroid: Plan: -Continue levothyroxine. (11) Dyslipidemia: Plan: -Continue rosuvastatin. (12) GERD (gastroesophageal reflux disease): Plan: -Continue Pepcid. 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 no acute change in mentation in aftermath of fall. -Continue Sinemet. (14) DVT prophylaxis: Plan: -SCDs and continue patient's Eliquis Plan: PT/OT evaluate for SNF rehab and eventual SNF placement referrals made to [facility] and [facility] Admission and Anticipated Discharge Date Admission Date: August 12, 2021 Subjective patient doing well, eating everything, breathing comfortably c/o some right sided neck pain, relieved with Tylenol, muscles are tight no labs today per CM, still awaiting bed at local [facility] Review of Systems Review of Systems: All systems reviewed & are unremarkable except as noted in Subjective Musculoskeletal: + neck pain Physical Exam Physical Exam: General: well developed, well nourished, no acute distress, comfortable EENT: very hard of hearing Neck: supple, trachea midline, normal thyroid Lungs: clear to auscultation bilaterally, normal respiratory effort, no accessory muscle use, no distress Heart: regular S1 and S2, no murmur, peripheral pulses normal, capillary refill normal, no edema Abdomen: soft, NT, ND, + BS, no hepatomegaly, normal to percussion Extremities: normal in appearance, no cyanosis, no petechiae, strength is slightly diminished bilaterally Neuro: awake, cooperative, moves all extremities, no focal motor deficits, CN II-XII intact, sensation in extremities intact, normal speech Skin: warm, dry, no rash, normal turgor Psych: Awake, alert oriented x 3, euthymic affect Results & Data Results & Data ([facility]) Vital Signs (Past 12 Hours) Vital Signs Temp Pulse Resp BP BP Pulse Ox 08/15/21 10:06 86 143/82 H 97 08/15/21 08:11 37.0 C 80 18 176/96 H 170/100 H 96 Laboratory Results Laboratory Results - last 24 hr 08/14/21 08/14/21 08/15/21 17:06 21:31 07:56 POC Glucose 244 H 192 H 170 H 08/15/21 12:01 POC Glucose 268 H Medications Administered Current Inpatient Medications Acetaminophen (Acetaminophen 325 Mg Tab) 650 mg PO Q4H PRN PRN Reason: Pain or Fever Stop: 09/09/21 19:31 Last Admin: 08/15/21 13:23 Dose: 650 mg Documented by: Amlodipine Besylate (Amlodipine Besylate 5 Mg Tab) 10 mg PO QAM [facility] Stop: 09/11/21 08:59 Last Admin: 08/15/21 08:00 Dose: 10 mg Documented by: Apixaban (Apixaban 2.5 Mg Tab) 2.5 mg PO BID [facility] Stop: 09/09/21 20:59 Last Admin: 08/15/21 07:58 Dose: 2.5 mg Documented by: Artificial Tears (Artificial Tears) 2 drops OP BID [facility] Stop: 09/09/21 20:59 Last Admin: 08/15/21 08:02 Dose: 2 drops Documented by: Atorvastatin Calcium (Atorvastatin 40 Mg Tab) 80 mg PO HS [facility] Stop: 09/09/21 20:59 Last Admin: 08/14/21 21:10 Dose: 80 mg Documented by: Carbidopa/Levodopa (Carbidopa/Levodopa 25/100mg Tab) 0.5 tab PO TID [facility] Stop: 09/09/21 20:59 Last Admin: 08/15/21 13:16 Dose: 0.5 tab Documented by: Clopidogrel Bisulfate (Clopidogrel Bisulfate 75 Mg Tab) 75 mg PO QAM [facility] Stop: 09/10/21 08:59 Last Admin: 08/15/21 08:02 Dose: 75 mg Documented by: Dextrose (Dextrose 50% 50 Ml Syringe) 25 - 50 ml IV UD PRN; Protocol PRN Reason: Hypoglycemia Protocol Stop: 09/09/21 15:24 Duloxetine HCl (Duloxetine Hcl 60 Mg Cap) 60 mg PO DAILY [facility] Stop: 09/10/21 08:59 Last Admin: 08/15/21 07:58 Dose: 60 mg Documented by: Famotidine (Famotidine 20 Mg Tab) 20 mg PO BID [facility] Stop: 09/09/21 20:59 Last Admin: 08/15/21 07:59 Dose: 20 mg Documented by: Finasteride (Finasteride 5 Mg Tab) 5 mg PO QAM [facility] Stop: 09/10/21 08:59 Last Admin: 08/15/21 08:02 Dose: 5 mg Documented by: Glucagon (Glucagon For Inj 1 Mg Vial) 1 mg SQ UD PRN; Protocol PRN Reason: Hypoglycemia Protocol Stop: 09/09/21 15:24 Glucose (Glucose 10 Tabs/Tube) 4 - 8 tabs PO UD PRN; Protocol PRN Reason: Hypoglycemia Protocol Stop: 09/09/21 15:24 Glucose (Glucose 40% Gel 15 Gm Tube) 15 - 30 gm PO UD PRN; Protocol PRN Reason: Hypoglycemia Protocol Stop: 09/09/21 15:24 Hydralazine HCl (Hydralazine Hcl 20 Mg/Ml Vial) 10 mg IV Q8 PRN PRN Reason: Blood Pressure - High Stop: 09/09/21 16:43 Last Admin: 08/12/21 23:35 Dose: 10 mg Documented by: Hydrocortisone (Hydrocortisone Hc 2.5% Crm 30gm Tube) 1 appln EXT DAILY PRN PRN Reason: hemorrhoids Stop: 09/09/21 19:31 Insulin Aspart (Insulin Aspart Per Unit) 0 units SC [facility] Stop: 09/09/21 16:29 Last Admin: 08/15/21 13:17 Dose: 10 units Documented by: Insulin Human NPH (Insulin Human Nph) 10 units SC BIDM [facility] Stop: 09/10/21 07:59 Last Admin: 08/15/21 08:47 Dose: 10 units Documented by: Levothyroxine Sodium (Levothyroxine Sodium 50 Mcg Tablet) 50 mcg PO DAILYBB [facility] Stop: 09/10/21 06:29 Last Admin: 08/15/21 05:13 Dose: 50 mcg Documented by: Lisinopril (Lisinopril 40 Mg Tab) 40 mg PO QAM [facility] Stop: 09/12/21 08:59 Last Admin: 08/15/21 08:00 Dose: 40 mg Documented by: Magnesium Oxide (Magnesium Oxide 400 Mg Tab) 400 mg PO BID [facility] Stop: 09/09/21 20:59 Last Admin: 08/15/21 08:02 Dose: 400 mg Documented by: Methylcellulose (Methylcellulose Powder 454 Gm Jar) 2 gm PO DAILY [facility] Stop: 09/10/21 08:59 Last Admin: 08/15/21 08:05 Dose: 2 gm Documented by: Miscellaneous (Carbohydrates For Hypoglycemia ) 15 - 30 gm PO UD PRN PRN Reason: Hypoglycemia Protocol Stop: 09/09/21 15:24 Ondansetron HCl (Ondansetron Inj 2 Mg/Ml 2 Ml Vial) 4 mg IV Q6H PRN PRN Reason: Nausea Stop: 09/09/21 19:31 Polyethylene Glycol (Polyethylene (Miralax) 17 Gm Pack) 17 gm PO DAILY PRN PRN Reason: Constipation Stop: 09/09/21 19:31 PG Care Time/CCT Total # of Minutes Spent Total Time Spent with Patient: Total time spent is greater than 50% in coordination of care (as documented) at patient's floor/unit and/or counseling patient: Coding Level of Care Code 94228 Subseq Hosp Care Lvl 2 Diagnoses Fall W19.XXXA Encounter type: initial encounter Atrial fibrillation I48.21 Atrial fibrillation type: permanent Coronary artery disease I25.10 Diabetes mellitus E11.9 Diabetes mellitus type: type 2 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 use: with vermin exterminator use Diabetes mellitus complication status: with kidney complications Chronic kidney disease stage: stage 3 (moderate) Chronic kidney disease stage 3 subtype: stage 3a (GFR 45-59) Chronic ischemic vertebrobasilar artery brainstem stroke I69.30 Hypertension I10 Hypertension type: unspecified Stage III chronic kidney disease N18.3 BPH (benign prostatic hyperplasia) N40.0 Depression F32.9 Hypothyroid E03.9 Hypothyroidism type: acquired Dyslipidemia E78.5 GERD (gastroesophageal reflux disease) K21.9 Esophagitis presence: esophagitis presence not specified Memory loss R41.3 DVT prophylaxis Z29.9 (1) Fall Encounter type: initial encounter Qualified Code(s): W19.XXXA - Unspecified fall, initial encounter (2) Atrial fibrillation Atrial fibrillation type: permanent Qualified Code(s): I48.21 - Permanent atrial fibrillation (3) Diabetes mellitus Diabetes mellitus type: type 2 Diabetes mellitus custodial insulin use: with vermin exterminator use Diabetes mellitus complication status: with kidney complications Chronic kidney disease stage: stage 3 (moderate) Chronic kidney disease stage 3 subtype: stage 3a (GFR 45-59) (4) Hypertension Hypertension type: unspecified Qualified Code(s): I10 - Essential (primary) hypertension (5) Hypothyroid Hypothyroidism type: acquired Qualified Code(s): E03.9 - Hypothyroidism, unspecified (6) GERD (gastroesophageal reflux disease) Esophagitis presence: esophagitis presence not specified Qualified Code(s): K21.9 - Gastro-esophageal reflux disease without esophagitis
[2021-08-15] MEDS: ATORVASTATIN 40 MG TAB PO SCH (20:38)
[2021-08-16] MEDS: LEVOTHYROXINE SODIUM 50 MCG TABLET PO SCH (05:55)
[2021-08-16] MEDS: CARBIDOPA/LEVODOPA 25/100MG TAB PO SCH ×3 (08:53→21:58)
[2021-08-16] MEDS: lisinopril 40 MG TAB PO SCH (08:55)
[2021-08-16] MEDS: FAMOTIDINE 20 MG TAB PO SCH ×2 (08:55→22:01)
[2021-08-16] MEDS: INSULIN HUMAN NPH SC SCH ×2 (08:55→17:29)
[2021-08-16] MEDS: APIXABAN 2.5 MG TAB PO SCH ×2 (08:55→22:00)
[2021-08-16] MEDS: amLODIPine BESYLATE 5 MG TAB PO SCH (08:55)
[2021-08-16] MEDS: DULoxetine HCL 60 MG CAP PO SCH (08:56)
[2021-08-16] MEDS: MAGNESIUM OXIDE 400 MG TAB PO SCH ×2 (08:56→22:01)
[2021-08-16] MEDS: FINASTERIDE 5 MG TAB PO SCH (08:56)
[2021-08-16] MEDS: CLOPIDOGREL BISULFATE 75 MG TAB PO SCH (08:57)
[2021-08-16] MEDS: ARTIFICIAL TEARS OP SCH ×2 (08:58→22:02)
[2021-08-16] MEDS: METHYLCELLULOSE POWDER 454 GM JAR PO SCH (09:01)
[2021-08-16] MEDS: INSULIN ASPART PER UNIT SC SCH ×4 (09:06→22:18)
--- NOTE | 2021-08-16 12:56 | Hospitalist Progress Note ---
Date of Service August 16, 2021 Assessment & Plan (1) Fall: Plan: -Unwitnessed ground level fall without LOC. -could be due to weakness, orthostasis no obvious signs of infection monitor for any hypo or hyperglycemia: no issues -PT/OT consult family interested in SNF rehab, maybe placement looking into [facility], they have a bed on Sunday 08/20 (2) Atrial fibrillation: Plan: -rates controlled -Continue Eliquis. no issues on tele, moved to medical (3) Coronary artery disease: Plan: -CABG in 2003 -Continue atorvastatin, clopidogrel, rosuvastatin. (4) Diabetes mellitus: Plan: -Continue NPH 10 units BID, Novolog SS, add carb ratio of 10, somewhat better control -Continue duloxetine for neuropathy. 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 -Continue Eliquis and Plavix. (6) Hypertension: Plan: increased Norvasc to 10mg daily and increased Lisinopril to 40mg BP is better past three days (7) Stage III chronic kidney disease: Plan: -Creatinine 1.2 08/13, baseline -Avoid nephrotoxins, renally dose meds when appropriate (8) BPH (benign prostatic hyperplasia): Plan: -Continue finasteride. (9) Depression: Plan: -Continue duloxetine. (10) Hypothyroid: Plan: -Continue levothyroxine. (11) Dyslipidemia: Plan: -Continue rosuvastatin. (12) GERD (gastroesophageal reflux disease): Plan: -Continue Pepcid. 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 no acute change in mentation in aftermath of fall. -Continue Sinemet. (14) DVT prophylaxis: Plan: -SCDs and continue patient's Eliquis (15) Dysphagia: Plan: long history of such, will get video swallow tomorrow Plan: PT/OT evaluate for SNF rehab and eventual SNF placement referrals made to [facility], they have a bed on Friday Admission and Anticipated Discharge Date Admission Date: August 12, 2021 Subjective patient doing okay, says "I need to get out of here" explained that his transfer to [facility] is delayed until Friday RN noticed that he was having some difficulty swallowing this morning, coughing a lot d/w Speech therapy, will get video swallow tomorrow Review of Systems Review of Systems: All systems reviewed & are unremarkable except as noted in Subjective Physical Exam Physical Exam: General: well developed, well nourished, no acute distress, comfortable EENT: very hard of hearing Neck: supple, trachea midline, normal thyroid Lungs: clear to auscultation bilaterally, normal respiratory effort, no accessory muscle use, no distress Heart: regular S1 and S2, no murmur, peripheral pulses normal, capillary refill normal, no edema Abdomen: soft, NT, ND, + BS, no hepatomegaly, normal to percussion Extremities: normal in appearance, no cyanosis, no petechiae, strength is slightly diminished bilaterally Neuro: awake, cooperative, moves all extremities, no focal motor deficits, CN II-XII intact, sensation in extremities intact, normal speech Skin: warm, dry, no rash, normal turgor Psych: Awake, alert oriented x 3, euthymic affect Results & Data Results & Data ([facility]) Vital Signs (Past 12 Hours) Vital Signs Temp Pulse Resp BP Pulse Ox 08/16/21 07:58 36.7 C 65 16 152/83 H 99 Laboratory Results Laboratory Results - last 24 hr 08/15/21 08/15/21 08/16/21 16:54 20:33 07:47 POC Glucose 285 H 214 H 128 H 08/16/21 11:36 POC Glucose 259 H Medications Administered Current Inpatient Medications Acetaminophen (Acetaminophen 325 Mg Tab) 650 mg PO Q4H PRN PRN Reason: Pain or Fever Stop: 09/09/21 19:31 Last Admin: 08/15/21 13:23 Dose: 650 mg Documented by: Amlodipine Besylate (Amlodipine Besylate 5 Mg Tab) 10 mg PO QAM [facility] Stop: 09/11/21 08:59 Last Admin: 08/16/21 08:55 Dose: 10 mg Documented by: Apixaban (Apixaban 2.5 Mg Tab) 2.5 mg PO BID [facility] Stop: 09/09/21 20:59 Last Admin: 08/16/21 08:55 Dose: 2.5 mg Documented by: Artificial Tears (Artificial Tears) 2 drops OP BID [facility] Stop: 09/09/21 20:59 Last Admin: 08/16/21 08:58 Dose: 2 drops Documented by: Atorvastatin Calcium (Atorvastatin 40 Mg Tab) 80 mg PO HS [facility] Stop: 09/09/21 20:59 Last Admin: 08/15/21 20:38 Dose: 80 mg Documented by: Carbidopa/Levodopa (Carbidopa/Levodopa 25/100mg Tab) 0.5 tab PO TID [facility] Stop: 09/09/21 20:59 Last Admin: 08/16/21 08:53 Dose: 0.5 tab Documented by: Clopidogrel Bisulfate (Clopidogrel Bisulfate 75 Mg Tab) 75 mg PO QAM [facility] Stop: 09/10/21 08:59 Last Admin: 08/16/21 08:57 Dose: 75 mg Documented by: Dextrose (Dextrose 50% 50 Ml Syringe) 25 - 50 ml IV UD PRN; Protocol PRN Reason: Hypoglycemia Protocol Stop: 09/09/21 15:24 Duloxetine HCl (Duloxetine Hcl 60 Mg Cap) 60 mg PO DAILY [facility] Stop: 09/10/21 08:59 Last Admin: 08/16/21 08:56 Dose: 60 mg Documented by: Famotidine (Famotidine 20 Mg Tab) 20 mg PO BID [facility] Stop: 09/09/21 20:59 Last Admin: 08/16/21 08:55 Dose: 20 mg Documented by: Finasteride (Finasteride 5 Mg Tab) 5 mg PO QAM [facility] Stop: 09/10/21 08:59 Last Admin: 08/16/21 08:56 Dose: 5 mg Documented by: Glucagon (Glucagon For Inj 1 Mg Vial) 1 mg SQ UD PRN; Protocol PRN Reason: Hypoglycemia Protocol Stop: 09/09/21 15:24 Glucose (Glucose 10 Tabs/Tube) 4 - 8 tabs PO UD PRN; Protocol PRN Reason: Hypoglycemia Protocol Stop: 09/09/21 15:24 Glucose (Glucose 40% Gel 15 Gm Tube) 15 - 30 gm PO UD PRN; Protocol PRN Reason: Hypoglycemia Protocol Stop: 09/09/21 15:24 Hydralazine HCl (Hydralazine Hcl 20 Mg/Ml Vial) 10 mg IV Q8 PRN PRN Reason: Blood Pressure - High Stop: 09/09/21 16:43 Last Admin: 08/12/21 23:35 Dose: 10 mg Documented by: Hydrocortisone (Hydrocortisone Hc 2.5% Crm 30gm Tube) 1 appln EXT DAILY PRN PRN Reason: hemorrhoids Stop: 09/09/21 19:31 Insulin Aspart (Insulin Aspart Per Unit) 0 units SC ACHS [facility] Stop: 09/09/21 16:29 Last Admin: 08/16/21 09:06 Dose: 6 units Documented by: Insulin Human NPH (Insulin Human Nph) 10 units SC BIDM [facility] Stop: 09/10/21 07:59 Last Admin: 08/16/21 08:55 Dose: 10 units Documented by: Levothyroxine Sodium (Levothyroxine Sodium 50 Mcg Tablet) 50 mcg PO DAILYBB [facility] Stop: 09/10/21 06:29 Last Admin: 08/16/21 05:55 Dose: 50 mcg Documented by: Lisinopril (Lisinopril 40 Mg Tab) 40 mg PO QAM [facility] Stop: 09/12/21 08:59 Last Admin: 08/16/21 08:55 Dose: 40 mg Documented by: Magnesium Oxide (Magnesium Oxide 400 Mg Tab) 400 mg PO BID [facility] Stop: 09/09/21 20:59 Last Admin: 08/16/21 08:56 Dose: 400 mg Documented by: Methylcellulose (Methylcellulose Powder 454 Gm Jar) 2 gm PO DAILY [facility] Stop: 09/10/21 08:59 Last Admin: 08/16/21 09:01 Dose: 2 gm Documented by: Miscellaneous (Carbohydrates For Hypoglycemia ) 15 - 30 gm PO UD PRN PRN Reason: Hypoglycemia Protocol Stop: 09/09/21 15:24 Ondansetron HCl (Ondansetron Inj 2 Mg/Ml 2 Ml Vial) 4 mg IV Q6H PRN PRN Reason: Nausea Stop: 09/09/21 19:31 Polyethylene Glycol (Polyethylene (Miralax) 17 Gm Pack) 17 gm PO DAILY PRN PRN Reason: Constipation Stop: 09/09/21 19:31 PG Care Time/CCT Total # of Minutes Spent Total Time Spent with Patient: Total time spent is greater than 50% in coordination of care (as documented) at patient's floor/unit and/or counseling patient: Coding Level of Care Code 81854 Subseq Hosp Care Lvl 2 Diagnoses Fall W19.XXXA Encounter type: initial encounter Atrial fibrillation I48.21 Atrial fibrillation type: permanent Coronary artery disease I25.10 Diabetes mellitus E11.9 Diabetes mellitus type: type 2 Diabetes mellitus jail insulin use: with jail use Diabetes mellitus complication status: with kidney complications Chronic kidney disease stage: stage 3 (moderate) Chronic kidney disease stage 3 subtype: stage 3a (GFR 45-59) Chronic ischemic vertebrobasilar artery brainstem stroke I69.30 Hypertension I10 Hypertension type: unspecified Stage III chronic kidney disease N18.3 BPH (benign prostatic hyperplasia) N40.0 Depression F32.9 Hypothyroid E03.9 Hypothyroidism type: acquired Dyslipidemia E78.5 GERD (gastroesophageal reflux disease) K21.9 Esophagitis presence: esophagitis presence not specified Memory loss R41.3 DVT prophylaxis Z29.9 Dysphagia R13.10 (1) Fall Encounter type: initial encounter Qualified Code(s): W19.XXXA - Unspecified fall, initial encounter (2) Atrial fibrillation Atrial fibrillation type: permanent Qualified Code(s): I48.21 - Permanent atrial fibrillation (3) Diabetes mellitus Diabetes mellitus type: type 2 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
[2021-08-16] MEDS: ACETAMINOPHEN 325 MG TAB PO PRN ×2 (13:08→17:07)
[2021-08-16] MEDS: ATORVASTATIN 40 MG TAB PO SCH (22:00)
[2021-08-17] MEDS: LEVOTHYROXINE SODIUM 50 MCG TABLET PO SCH (06:48)
[2021-08-17] MEDS: CARBIDOPA/LEVODOPA 25/100MG TAB PO SCH ×3 (08:55→20:59)
[2021-08-17] MEDS: lisinopril 40 MG TAB PO SCH (08:55)
[2021-08-17] MEDS: MAGNESIUM OXIDE 400 MG TAB PO SCH ×2 (08:55→20:59)
[2021-08-17] MEDS: FAMOTIDINE 20 MG TAB PO SCH ×2 (08:55→20:59)
[2021-08-17] MEDS: amLODIPine BESYLATE 5 MG TAB PO SCH (08:55)
[2021-08-17] MEDS: APIXABAN 2.5 MG TAB PO SCH ×2 (08:56→20:59)
[2021-08-17] MEDS: ARTIFICIAL TEARS OP SCH ×2 (08:56→21:00)
[2021-08-17] MEDS: DULoxetine HCL 60 MG CAP PO SCH (08:56)
[2021-08-17] MEDS: CLOPIDOGREL BISULFATE 75 MG TAB PO SCH (08:56)
[2021-08-17] MEDS: FINASTERIDE 5 MG TAB PO SCH (08:56)
[2021-08-17] MEDS: INSULIN ASPART PER UNIT SC SCH ×4 (09:01→21:58)
[2021-08-17] MEDS: INSULIN HUMAN NPH SC SCH ×2 (09:01→17:46)
[2021-08-17] MEDS: METHYLCELLULOSE POWDER 454 GM JAR PO SCH (09:03)
--- NOTE | 2021-08-17 14:07 | Fluoroscopy Report ---
MODIFIED BARIUM SWALLOW CLINICAL HISTORY: Rule out aspiration. History of stroke. Dysarthria. COMPARISON STUDY: Modified swallow July 03, 2011. FLUOROSCOPY TIME: 1.3 minutes. TECHNIQUE: A modified barium swallow was performed in conjunction with Speech Pathology. The patient ingested varying consistencies of barium containing material. Video fluoroscopy was performed. FINDINGS: No aspiration was noted with swallows of thin liquids. Epiglottic inversion was normal. Lar yngeal elevation was normal. There is prolonged mastication with crackers with paste. No aspiration w as noted. Following mechanism was intact with pudding consistency. Please note that the barium swallo w will be reported separately. IMPRESSION: 1. Intact swallowing mechanism. No tracheal aspiration. 2. Full recommendations by Speech pathology to follow. ACT 112: Negative or not required by law. Electronically signed by: Daniel Boyer M.D. 08/17/2021 2:06 PM
--- NOTE | 2021-08-17 14:15 | Fluoroscopy Report ---
DOUBLE CONTRAST BARIUM ESOPHAGRAM CLINICAL HISTORY: Dysphagia. Reported history of Schatzki's ring. COMPARISON STUDY: No priors. TECHNIQUE: A standard air contrast barium esophagram is performed. Multiple spot images of the esopha juan are acquired both upright and prone. FINDINGS: The patient swallowed barium without difficulty. The patient declined the barium pill. Ther e is severe esophageal dysmotility. A Schatzki's ring is suggested in the distal esophagus. The mucos al pattern is normal. There is no evidence of intrinsic or extrinsic mass lesion. No aspiration was s een. There is focal narrowing just above the gastroesophageal junction which never fully distended. N o gastroesophageal reflux could be elicited by having the patient perform the Valsalva maneuver. Ther e is a moderate sliding-type hiatal hernia. Midline sternotomy wires are noted. Fluoroscopy time: 2.3 minutes. Fluoroscopic images: 16 spot images and 2 cine loops IMPRESSION: 1. Severe esophageal dysmotility. 2. A Schatzki's ring is suggested in the distal esophagus. 3. There is focal narrowing just above the gastroesophageal junction which never fully distended duri ng the examination. This could represent esophageal spasm or possibly stricture. This could be furthe r assessed with endoscopy if clinically warranted. 4. Moderate sliding-type hiatal hernia. 5. The patient declined the barium pill. ACT 112: Negative or not required by law. Electronically signed by: Crow Wells M.D. 08/17/2021 2:14 PM
[2021-08-17] MEDS: ATORVASTATIN 40 MG TAB PO SCH (20:59)
[2021-08-17] MEDS: ACETAMINOPHEN 325 MG TAB PO PRN (21:05)
--- NOTE | 2021-08-17 21:38 | Hospitalist Progress Note ---
Date of Service August 17, 2021 Assessment & Plan (1) Fall: Plan: -Unwitnessed ground level fall without LOC. -could be due to weakness, orthostasis no obvious signs of infection monitor for any hypo or hyperglycemia: no issues -PT/OT consult family interested in SNF rehab, maybe placement looking into [facility], they have a bed on Sunday 08/20 can go on Friday unless GI wants to do EGD with dilation, then he could probably go Friday follow up GI consult (2) Dysphagia: Plan: long history of such video swallow shows oropharyngeal function is normal his issue is esophageal dysmotility, stricture, ring will consult GI, he has seen [facility] in the past will start to hold Eliquis tomorrow morning in case they would want to perform EGD Friday (3) Atrial fibrillation: Plan: -rates controlled -Continue Eliquis. no issues on tele, moved to medical (4) Coronary artery disease: Plan: -CABG in 2003 -Continue atorvastatin, clopidogrel, rosuvastatin. (5) Diabetes mellitus: Plan: -Continue NPH 10 units BID, Novolog SS, add carb ratio of 10, better control after adding carb ratio -Continue duloxetine for neuropathy. 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 -Continue Eliquis and Plavix. (7) Hypertension: Plan: increased Norvasc to 10mg daily and increased Lisinopril to 40mg BP is better past four days (8) Stage III chronic kidney disease: Plan: -Creatinine 1.2 08/13, baseline -Avoid nephrotoxins, renally dose meds when appropriate (9) BPH (benign prostatic hyperplasia): Plan: -Continue finasteride. (10) Depression: Plan: -Continue duloxetine. (11) Hypothyroid: Plan: -Continue levothyroxine. (12) Dyslipidemia: Plan: -Continue rosuvastatin. (13) GERD (gastroesophageal reflux disease): Plan: -Continue Pepcid. 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 no acute change in mentation in aftermath of fall. -Continue Sinemet. (15) DVT prophylaxis: Plan: -SCDs and continue patient's Eliquis, but hold starting tomorrow morning in case of EGD Plan: PT/OT evaluate for SNF rehab and eventual SNF placement referrals made to [facility], they have a bed on Friday/Friday Admission and Anticipated Discharge Date Admission Date: August 12, 2021 Subjective patient doing well, keeps asking when he can go home explained that he is going to [facility] on Friday, he asks me this every day appreciate video swallow results he has esophageal dysmotility, stricture, Schatzki ring but his oropharyngeal swallowing was fine he has required EGD with dilation in the past will ask GI to see him about getting EGD while here before heading to [facility] Review of Systems Review of Systems: All systems reviewed & are unremarkable except as noted in Subjective Physical Exam Physical Exam: General: well developed, well nourished, no acute distress, comfortable EENT: very hard of hearing Neck: supple, trachea midline, normal thyroid Lungs: clear to auscultation bilaterally, normal respiratory effort, no accessory muscle use, no distress Heart: regular S1 and S2, no murmur, peripheral pulses normal, capillary refill normal, no edema Abdomen: soft, NT, ND, + BS, no hepatomegaly, normal to percussion Extremities: normal in appearance, no cyanosis, no petechiae, strength is slightly diminished bilaterally Neuro: awake, cooperative, moves all extremities, no focal motor deficits, CN II-XII intact, sensation in extremities intact, normal speech Skin: warm, dry, no rash, normal turgor Psych: Awake, alert oriented x 3, euthymic affect Results & Data Results & Data ([facility]) Vital Signs (Past 12 Hours) Vital Signs Temp Pulse Resp BP Pulse Ox 08/17/21 14:51 36.9 C 74 18 114/64 96 Laboratory Results Laboratory Results - last 24 hr 08/17/21 08/17/21 08/17/21 07:19 12:21 17:21 POC Glucose 119 H 165 H 222 H 08/17/21 20:50 POC Glucose 125 H Medications Administered Current Inpatient Medications Acetaminophen (Acetaminophen 325 Mg Tab) 650 mg PO Q4H PRN PRN Reason: Pain or Fever Stop: 09/09/21 19:31 Last Admin: 08/17/21 21:05 Dose: 650 mg Documented by: Amlodipine Besylate (Amlodipine Besylate 5 Mg Tab) [facility] [place] 09/11/21 08:59 Last Admin: 08/17/21 08:55 Dose: 10 mg Documented by: Apixaban (Apixaban 2.5 Mg Tab) 2.5 mg PO BID STEPH Stop: 09/09/21 20:59 Last Admin: 08/17/21 20:59 Dose: 2.5 mg Documented by: Artificial Tears (Artificial Tears) 2 drops OP BID STEPH Stop: 09/09/21 20:59 Last Admin: 08/17/21 21:00 Dose: 2 drops Documented by: Atorvastatin Calcium (Atorvastatin 40 Mg Tab) 80 mg PO HS STEPH Stop: 09/09/21 20:59 Last Admin: 08/17/21 20:59 Dose: 80 mg Documented by: Carbidopa/Levodopa (Carbidopa/Levodopa 25/100mg Tab) 0.5 tab PO TID STEPH Stop: 09/09/21 20:59 Last Admin: 08/17/21 20:59 Dose: 0.5 tab Documented by: Clopidogrel Bisulfate (Clopidogrel Bisulfate 75 Mg Tab) 75 mg PO QAM [facility] Stop: 09/10/21 08:59 Last Admin: 08/17/21 08:56 Dose: 75 mg Documented by: Dextrose (Dextrose 50% 50 Ml Syringe) 25 - 50 ml IV UD PRN; Protocol PRN Reason: Hypoglycemia Protocol Stop: 09/09/21 15:24 Duloxetine HCl (Duloxetine Hcl 60 Mg Cap) 60 mg PO DAILY STEPH Stop: 09/10/21 08:59 Last Admin: 08/17/21 08:56 Dose: 60 mg Documented by: Famotidine (Famotidine 20 Mg Tab) 20 mg PO BID STEPH Stop: 09/09/21 20:59 Last Admin: 08/17/21 20:59 Dose: 20 mg Documented by: Finasteride (Finasteride 5 Mg Tab) 5 mg PO QAM STEPH Stop: 09/10/21 08:59 Last Admin: 08/17/21 08:56 Dose: 5 mg Documented by: Glucagon (Glucagon For Inj 1 Mg Vial) 1 mg SQ UD PRN; Protocol PRN Reason: Hypoglycemia Protocol Stop: 09/09/21 15:24 Glucose (Glucose 10 Tabs/Tube) 4 - 8 tabs PO UD PRN; Protocol PRN Reason: Hypoglycemia Protocol Stop: 09/09/21 15:24 Glucose (Glucose 40% Gel 15 Gm Tube) 15 - 30 gm PO UD PRN; Protocol PRN Reason: Hypoglycemia Protocol Stop: 09/09/21 15:24 Hydralazine HCl (Hydralazine Hcl 20 Mg/Ml Vial) 10 mg IV Q8 PRN PRN Reason: Blood Pressure - High Stop: 09/09/21 16:43 Last Admin: 08/12/21 23:35 Dose: 10 mg Documented by: Hydrocortisone (Hydrocortisone Hc 2.5% Crm 30gm Tube) 1 appln EXT DAILY PRN PRN Reason: hemorrhoids Stop: 09/09/21 19:31 Insulin Aspart (Insulin Aspart Per Unit) 0 units SC ACHS [facility] Stop: 09/09/21 16:29 Last Admin: 08/17/21 17:45 Dose: 7 units Documented by: Insulin Human NPH (Insulin Human Nph) 10 units SC BIDM [facility] Stop: 09/10/21 07:59 Last Admin: 08/17/21 17:46 Dose: 10 units Documented by: Levothyroxine Sodium (Levothyroxine Sodium 50 Mcg Tablet) 50 mcg PO DAILYBB [facility] Stop: 09/10/21 06:29 Last Admin: 08/17/21 06:48 Dose: 50 mcg Documented by: Lisinopril (Lisinopril 40 Mg Tab) 40 mg PO QAM [facility] Stop: 09/12/21 08:59 Last Admin: 08/17/21 08:55 Dose: 40 mg Documented by: Magnesium Oxide (Magnesium Oxide 400 Mg Tab) 400 mg PO BID [facility] Stop: 09/09/21 20:59 Last Admin: 08/17/21 20:59 Dose: 400 mg Documented by: Methylcellulose (Methylcellulose Powder 454 Gm Jar) 2 gm PO DAILY [facility] Stop: 09/10/21 08:59 Last Admin: 08/17/21 09:03 Dose: 2 gm Documented by: Miscellaneous (Carbohydrates For Hypoglycemia ) 15 - 30 gm PO UD PRN PRN Reason: Hypoglycemia Protocol Stop: 09/09/21 15:24 Ondansetron HCl (Ondansetron Inj 2 Mg/Ml 2 Ml Vial) 4 mg IV Q6H PRN PRN Reason: Nausea Stop: 09/09/21 19:31 Polyethylene Glycol (Polyethylene (Miralax) 17 Gm Pack) 17 gm PO DAILY PRN PRN Reason: Constipation Stop: 09/09/21 19:31 PG Care Time/CCT Total # of Minutes Spent Total Time Spent with Patient: Total time spent is greater than 50% in coordination of care (as documented) at patient's floor/unit and/or counseling patient: Coding Level of Care Code 82697 Subseq Hosp Care Lvl 2 Diagnoses Fall W19.XXXA Encounter type: initial encounter Atrial fibrillation I48.21 Atrial fibrillation type: permanent Coronary artery disease I25.10 Diabetes mellitus E11.9 Diabetes mellitus type: type 2 Diabetes mellitus terminologist insulin use: with usp use Diabetes mellitus complication status: with kidney complications Chronic kidney disease stage: stage 3 (moderate) Chronic kidney disease stage 3 subtype: stage 3a (GFR 45-59) Chronic ischemic vertebrobasilar artery brainstem stroke I69.30 Hypertension I10 Hypertension type: unspecified Stage III chronic kidney disease N18.3 BPH (benign prostatic hyperplasia) N40.0 Depression F32.9 Hypothyroid E03.9 Hypothyroidism type: acquired Dyslipidemia E78.5 GERD (gastroesophageal reflux disease) K21.9 Esophagitis presence: esophagitis presence not specified Memory loss R41.3 DVT prophylaxis Z29.9 Dysphagia R13.10 (1) Fall Encounter type: initial encounter Qualified Code(s): W19.XXXA - Unspecified fall, initial encounter (2) Atrial fibrillation Atrial fibrillation type: permanent Qualified Code(s): I48.21 - Permanent atrial fibrillation (3) Diabetes mellitus Diabetes mellitus type: type 2 Diabetes mellitus usp insulin use: with terminologist use Diabetes mellitus complication status: with kidney complications Chronic kidney disease stage: stage 3 (moderate) Chronic kidney disease stage 3 subtype: stage 3a (GFR 45-59) (4) Hypertension Hypertension type: unspecified Qualified Code(s): I10 - Essential (primary) hypertension (5) Hypothyroid Hypothyroidism type: acquired Qualified Code(s): E03.9 - Hypothyroidism, unspecified (6) GERD (gastroesophageal reflux disease) Esophagitis presence: esophagitis presence not specified Qualified Code(s): K21.9 - Gastro-esophageal reflux disease without esophagitis
[2021-08-18] MEDS: LEVOTHYROXINE SODIUM 50 MCG TABLET PO SCH (06:09)
[2021-08-18] MEDS: MAGNESIUM OXIDE 400 MG TAB PO SCH ×2 (07:57→22:32)
[2021-08-18] MEDS: CARBIDOPA/LEVODOPA 25/100MG TAB PO SCH ×3 (07:57→22:34)
[2021-08-18] MEDS: CLOPIDOGREL BISULFATE 75 MG TAB PO SCH (07:58)
[2021-08-18] MEDS: FAMOTIDINE 20 MG TAB PO SCH ×2 (07:58→22:31)
[2021-08-18] MEDS: lisinopril 40 MG TAB PO SCH (07:58)
[2021-08-18] MEDS: amLODIPine BESYLATE 5 MG TAB PO SCH (07:58)
[2021-08-18] MEDS: FINASTERIDE 5 MG TAB PO SCH (07:58)
[2021-08-18] MEDS: DULoxetine HCL 60 MG CAP PO SCH (07:59)
[2021-08-18] MEDS: METHYLCELLULOSE POWDER 454 GM JAR PO SCH (07:59)
[2021-08-18] MEDS: ARTIFICIAL TEARS OP SCH ×2 (07:59→22:29)
[2021-08-18] MEDS: INSULIN HUMAN NPH SC SCH ×2 (08:39→17:35)
[2021-08-18] MEDS: INSULIN ASPART PER UNIT SC SCH ×4 (08:40→22:39)
--- NOTE | 2021-08-18 14:04 | Gastrointestinal Consultation ---
Date of Consultation August 18, 2021 Assessment & Plan (1) Dysphagia: (2) Esophageal stricture: possible stricture/schatzki ring/esophagitis recs: NPO post midnight friday night EGD sunday 08/20 to further evaluate and treat rest as per primary team Thank you for allowing me to participate in the care of this patient History of Present Illness Attending Physician: Demetrius Kat History of Present Illness 85 yo male here after fall at home. He has a hx afib and imaging showed possible stricture in esophagus, GI consulted for this. He has been having dysphagia to solid foods. Prior EGD done by me few years ago showed a normal esophagus and large hiatal hernia. Currently he is HD stable. labs reviewed. Allergies Allergy/AdvReac Type Severity Reaction Status Date / Time hydrocodone AdvReac Mild Dizziness, Verified 08/10/21 14:47 [From Panlor Nausea (hydrocodone-acetamin)] oxycodone AdvReac Mild NAUSEA/VOMI Verified 08/10/21 14:47 TING tramadol AdvReac Mild confusion Verified 08/10/21 14:47 Home Medications Medication Instructions Recorded Confirmed Type apixaban 2.5 mg tablet (Eliquis) 2.5 mg PO BID #180 tab 08/21/20 08/10/21 Rx atorvastatin 80 mg tablet 80 mg PO HS #90 tab 08/21/20 08/10/21 Rx finasteride 5 mg tablet 5 mg PO QAM #90 tab 08/21/20 08/10/21 Rx levothyroxine 50 mcg tablet 50 mcg PO QAM #90 tab 08/21/20 08/10/21 Rx polyethylene glycol 3350 17 17 g PO DAILY PRN 09/14/20 08/10/21 History gram/dose oral powder (Miralax) triamcinolone acetonide 0.1 % 1 applic TOPICAL BID #30 g 10/02/20 08/10/21 Rx topical cream glycerin 2 drp OPHTHALMIC (EYE) BID 10/17/20 08/10/21 History blood sugar diagnostic (OneTouch #100 ea 10/18/20 05/28/21 Rx Ultra Blue Test Strip) lancets 33 gauge (OneTouch Delica #100 ea 10/18/20 05/28/21 Rx Plus Lancet) duloxetine 60 mg capsule,delayed 60 mg PO DAILY #90 cap 10/30/20 08/10/21 Rx release omeprazole 20 mg capsule,delayed 40 mg PO QAM #180 cap 10/30/20 08/10/21 Rx release blood-glucose meter (OneTouch #1 ea 10/31/20 05/28/21 Rx Ultra2 Meter) methylcellulose (with sugar) 2 2 g PO DAILY #454 g 01/19/21 08/10/21 Rx gram/19 gram oral powder (Fiber Therapy (methylcellulose-sugar)) pen needle, diabetic 32 gauge x #100 ea 02/15/21 05/28/21 Rx 5/32" (BD Ultra-Fine Mary Carmen Pen Needle) famotidine 20 mg tablet 20 mg PO BID #60 tab 03/28/21 08/10/21 Rx docusate sodium 100 mg capsule 100 mg PO BID #60 cap 04/03/21 08/10/21 Rx hydrocortisone 2.5 % topical cream 1 applic ME DAILY PRN #30 g 04/09/21 08/10/21 Rx with perineal applicator pregabalin 100 mg capsule 100 mg PO TID #90 cap 04/19/21 08/10/21 Rx diclofenac sodium 1 % topical gel 4 g TOP QID PRN 05/04/21 08/10/21 History insulin NPH-regular 70-30 U-100 12 unit SQ BID #15 ml 05/17/21 08/10/21 Rx insulin 100 unit/mL subcutaneous pen (Novolin 70-30 FlexPen U-100 Insulin) carbidopa 25 mg-levodopa 100 mg 0.5 tab PO TID #45 tab 05/21/21 08/10/21 Rx tablet (Sinemet) lisinopril 10 mg tablet 10 mg PO QAM #45 tab 05/28/21 08/10/21 Rx lisinopril 5 mg tablet 5 mg PO DAILY #30 tab 05/28/21 08/10/21 Rx magnesium oxide 400 mg PO BID #60 tab 06/04/21 08/10/21 Rx clopidogrel 75 mg tablet 75 mg PO QAM #90 tab 06/11/21 08/10/21 Rx Patient History Medical History Abnormal tympanic membrane Left and Right Atrial fibrillation with rapid ventricular response Atrial flutter with rapid ventricular response Bilateral otitis externa BPH (benign prostatic hyperplasia) 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 Yates--per son pt does not have any deficits Bright red blood per rectum Coronary artery disease Depression Difficulty swallowing DM type 2 (diabetes mellitus, type 2) Encounter for pre-operative examination Foreign body in lip GERD (gastroesophageal reflux disease) Hearing deficit History of cellulitis HTN (hypertension) Hyperlipidemia Hypothyroid Inflamed external hemorrhoid Jaw disease Kidney stones Memory impairment Myocardial Infarction 2003--follows with Dr. [place] Neuropathy On anticoagulant therapy eliquis daily Osteoarthritis Paroxysmal atrial flutter Productive cough Stage III chronic kidney disease Stroke x3 total---follows with Dr. Yates Transient hypotension Upper respiratory infection UTI (urinary tract infection) Surgical History History of bilateral cataract extraction History of esophagogastroduodenoscopy (EGD) History of kidney surgery History of lithotripsy x2 History of lumbar laminectomy History of tooth extraction Hx of CABG 2003 @ [facility] [place] Family History Father Diabetes Coronary heart disease Mother Diabetes Coronary heart disease Myocardial infarction Sister Breast cancer Brother Coronary heart disease Son Family history of diabetes mellitus Family/Other Family history of diabetes mellitus grandson Other No family history of adverse response to anesthesia Denies family history of Ovarian cancer Prostate cancer Colorectal cancer Social History Smoking Status: Never smoker Second Hand Exposure: No; Hx Alcohol Use: No Hx Substance Use: No Preferred Language: Lithuanian Communication Ability: Impaired Visual Impairment: No Limitations Hearing Ability: Use of Hearing Aid Gmat Instructor Required: No Beliefs That Will Affect Care: None marital status: Current Living Situation: Family Current Living Situation Comment: lives with son and in independent living per pt. current occupational status: retired current occupation: used to work in [employer] How many Children do You have: 1 Other Information That Helps Us Care for You: No Feels Safe at Home: Yes Safety Concerns: Feels Safe At This Time Childhood Exposure to Second-Hand Smoke: Yes caffeine: Yes Dental Care, Regularly: No Physical Activity Frequency: Does not Exercise Seatbelt Use: always Sunscreen Use: No Assistive Devices: Denture - Upper, Denture - Lower and Hearing Aid - Left Review of Systems Constitutional: no fever, no chills and no weight loss Eyes: as per Subjective / HPI Ear, Nose, Mouth, Throat: as per Subjective / HPI Respiratory: no dyspnea and no dyspnea on exertion Cardiovascular: no chest pain and no palpitations Gastrointestinal: as per Subjective / HPI Musculoskeletal: no joint pain and no swelling Integumentary: no rash and no lesions Neurologic: no numbness and no paresthesia Psychiatric: no depression and no anxiety Endocrine: no fatigue Hematologic / Lymphatic: no easy bleeding and no easy bruising Physical Exam Constitutional: WD/WN, vitals as above Eyes: EOM intact bilaterally Neck: normal visual inspection Respiratory: normal respiratory effort, lungs clear to auscultation Cardiovascular: RRR, no murmur, no edema Gastrointestinal (Abdomen): Inspection/Auscultation: abdomen normal to inspection; abdomen not distended Percussion/Palpation: abdomen soft; abdomen nontender and no hepatosplenomegaly Musculoskeletal: Extremities: no cyanosis Gait: normal gait Skin: no rashes, warm and dry Neurologic: moves all extremities Psychiatric: A+Ox3, euthymic affect Results & Data ([facility]) Vital Signs (Past 12 Hours) Vital Signs Temp Pulse Resp BP Pulse Ox 08/18/21 07:38 36.7 C 79 18 157/91 H 97 PG Care Time/CCT Total # of Minutes Spent Total Time Spent with Patient: Total time spent is greater than 50% in coordination of care (as documented) at patient's floor/unit and/or counseling patient: Coding Level of Care Code 13459 Initial Inpt Care Lvl 3 Diagnoses Dysphagia R13.10 Esophageal stricture K22.2
--- NOTE | 2021-08-18 21:11 | Hospitalist Progress Note ---
Date of Service August 18, 2021 Assessment & Plan (1) Fall: Plan: Unwitnessed ground level fall without LOC. etiology? check b12 level in am - deficiency could lead to proprioceptive deficits and heightened fall risk 2nd to prior strokes?? cont PT/OT family interested in SNF rehab, maybe placement after that hopefully [facility] post-d/c (2) Dysphagia: Plan: long history of such video swallow shows no aspiration [facility] saw in consul - EGD Friday - r/o stricture, etc holding eliquis in preparation for such cont easy to chew diet (3) Atrial fibrillation: Plan: rates controlled w/o AV chris agents resume Eliquis post EGD (4) Coronary artery disease: Plan: -CABG in 2003 -Continue atorvastatin, clopidogrel, rosuvastatin. 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 Continue Sinemet (15) DVT prophylaxis: Plan: hold eliquis for upcoming EGD (16) Thrombocytopenia: Plan: chronic check b12/folate in am if normal could be low-grade ITP cbc am for stability Admission and Anticipated Discharge Date Admission Date: August 12, 2021 Subjective pt sitting in chair watching football on TV had "good day" no complaints eating well no issues per staff Review of Systems Review of Systems: gen - no fevers, chills; decent energy CV - no pain GI - dysphagia but no worse than previous pulm - no cough/congestion Physical Exam Physical Exam: gen - nad, pleasant neck - no JVD mouth - Mm slightly dry heart - irregular, s1 s2 lungs - CTA b/l abd - soft NT ND BS+ ext - no edema, pulses 2+ b/l Results & Data Results [facility]) Vital Signs (Past 12 Hours) Vital Signs Temp Pulse Pulse Resp BP Pulse Ox 08/18/21 20:10 36.6 C 78 16 131/68 94 08/18/21 14:39 36.4 C L 70 16 99 Laboratory Results platelets chronically low on CBCs PG Care Time/CCT Total # of Minutes Spent Total Time Spent with Patient: Total time spent is greater than 50% in coordination of care (as documented) at patient's floor/unit and/or counseling patient: Coding Level of Care Code 93842 Subseq Hosp Care Lvl 2 Diagnoses Fall W19.XXXA Encounter type: initial encounter Dysphagia R13.10 Atrial fibrillation I48.21 Atrial fibrillation type: permanent Coronary artery disease I25.10 Diabetes mellitus E11.9 Chronic kidney disease stage: stage 3 (moderate) Chronic kidney disease stage 3 subtype: stage 3a (GFR 45-59) Diabetes mellitus complication status: with kidney complications Diabetes mellitus fpc insulin use: with fpc use 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 I69.30 Hypertension I10 Hypertension type: unspecified Stage III chronic kidney disease N18.3 BPH (benign prostatic hyperplasia) N40.0 Depression F32.9 Hypothyroid E03.9 Hypothyroidism type: acquired Dyslipidemia E78.5 GERD (gastroesophageal reflux disease) K21.9 Esophagitis presence: esophagitis presence not specified Memory loss R41.3 DVT prophylaxis Z29.9 Thrombocytopenia D69.6 (1) Diabetes mellitus Chronic kidney disease stage: stage 3 (moderate) Chronic kidney disease stage 3 subtype: stage 3a (GFR 45-59) Diabetes mellitus complication status: with kidney complications Diabetes mellitus commercial portfolio manager insulin use: with fpc use Diabetes mellitus type: type 2 (2) Atrial fibrillation Atrial fibrillation type: permanent Qualified Code(s): I48.21 - Permanent atrial fibrillation (3) Hypothyroid Hypothyroidism type: acquired Qualified Code(s): E03.9 - Hypothyroidism, unspecified (4) GERD (gastroesophageal reflux disease) Esophagitis presence: esophagitis presence not specified Qualified Code(s): K21.9 - Gastro-esophageal reflux disease without esophagitis (5) Hypertension Hypertension type: unspecified Qualified Code(s): I10 - Essential (primary) hypertension (6) Fall Encounter type: initial encounter Qualified Code(s): W19.XXXA - Unspecified fall, initial encounter
[2021-08-18] MEDS: ATORVASTATIN 40 MG TAB PO SCH (22:34)
[2021-08-19] MEDS: LEVOTHYROXINE SODIUM 50 MCG TABLET PO SCH (05:43)
[2021-08-19] MEDS: amLODIPine BESYLATE 5 MG TAB PO SCH (07:05)
[2021-08-19] MEDS: CARBIDOPA/LEVODOPA 25/100MG TAB PO SCH ×3 (07:05→20:20)
[2021-08-19] MEDS: ARTIFICIAL TEARS OP SCH ×2 (07:06→20:18)
[2021-08-19] MEDS: METHYLCELLULOSE POWDER 454 GM JAR PO SCH (07:06)
[2021-08-19] MEDS: DULoxetine HCL 60 MG CAP PO SCH (07:07)
[2021-08-19] MEDS: FINASTERIDE 5 MG TAB PO SCH (07:07)
[2021-08-19] MEDS: CLOPIDOGREL BISULFATE 75 MG TAB PO SCH (07:07)
[2021-08-19] MEDS: MAGNESIUM OXIDE 400 MG TAB PO SCH ×2 (07:07→20:19)
[2021-08-19] MEDS: FAMOTIDINE 20 MG TAB PO SCH ×2 (07:07→20:19)
[2021-08-19] MEDS: lisinopril 40 MG TAB PO SCH (07:07)
[2021-08-19 07:48] LABS: Hematocrit (blood only) 44.6 % (42-52); Hemoglobin 15.5 g/dL (14.0-18.0); Mean Corpuscular Hemoglobin 31.4 pg (25-34); Mean Corpuscular Hgb Conc 34.8 g/dL (32-36); Mean Corpuscular Volume 90.5 fL (80-100); Mean Platelet Volume 11.8 fL (7.4-10.4); Platelet Count 109 K/uL (130-400); RDW Coefficient of Variation 13.9 % (11.5-14.5); RDW Standard Deviation 46.1 fL (36.4-46.3); Red Blood Count 4.93 M/uL (4.7-6.1); White Blood Count 5.53 K/uL (4.8-10.8)
[2021-08-19 08:11] LABS: BUN Creatinine Ratio 23.2 (10-20); Calcium 9.3 mg/dl (8.5-10.1); Creatinine Clr Calc Pharmacy 48.6 ml/min; Est GFR (African American) 60.5 ml/min; Est GFR (Non-African American) 52.2 ml/min; Potassium 4.4 mmol/L (3.5-5.1)
[2021-08-19] MEDS: INSULIN ASPART PER UNIT SC SCH ×4 (08:53→20:46)
[2021-08-19] MEDS: INSULIN HUMAN NPH SC SCH ×2 (08:54→17:47)
[2021-08-19] MEDS: CYANOCOBALAMIN 1000 MCG/ML VIAL IM SCH (10:35)
--- NOTE | 2021-08-19 14:34 | Hospitalist Progress Note ---
Date of Service August 19, 2021 Assessment & Plan (1) Fall: Plan: Unwitnessed ground level fall without LOC. etiology? B12 level is "normal" but likely deficient given his age. B12 deficiency could certainly be contributing to heightened fall risk with proprioceptive deficits, etc. prior strokes could also be contributing to fall risk. cont PT/OT family interested in SNF rehab, maybe placement after that hopefully [facility] post-d/c (2) Dysphagia: Plan: long history of such video swallow shows no aspiration [facility] saw in consult - EGD tomorrow on Friday - r/o stricture, etc holding eliquis in preparation for such NPO after MN cont easy to chew diet until then (3) Atrial fibrillation: Plan: rates controlled w/o AV chris agents resume Eliquis post EGD (4) Coronary artery disease: Plan: -CABG in 2003 -Continue atorvastatin, clopidogrel, rosuvastatin. 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 B12 deficiency could contribute to memory issues replace parenterally while here (15) DVT prophylaxis: Plan: hold eliquis for upcoming EGD (16) Thrombocytopenia: Plan: chronic B12 def could be contributing folate wnl replace B12 with IM shots while hospitalized, then PO replacement post-d/c could also be a low-grade ITP (17) Neck pain: Plan: check cervical spine CT due to recent fall - r/o fracture voltaren gel 4 grams QID to neck for pain control tylenol 1gm TID (18) B12 deficiency: Plan: replace IM 1000mcg daily while hospitalized x 5 doses then perhaps once weekly IM x 4 weeks then perhaps PO following that Plan: EGD in am dispo - SNF - hopefully this week Admission and Anticipated Discharge Date Admission Date: August 12, 2021 Subjective c/o right-sided posterior cervical neck pain gets pain like this at home hurts to turn the head (rotation) no radicular symptoms of arms no weakness of arms eating well otherwise feeling good Review of Systems Review of Systems: gen - good appetite, good energy cv - no cp pulm - no dyspnea GI - no abd pain Physical Exam Physical Exam: gen - nad, pleasant neck - no JVD; with passive rotation of head he c/o paraspinal pain on right posterior neck; no spinous process pain; flexion/extension is limited mouth - no lesions heart - irregular, s1 s2 lungs - CTA b/l abd - soft NT ND BS+ ext - no edema, pulses 2+ b/l neuro - strength b/l arms 5/5 Results & Data Results & Data ([facility]) Vital Signs (Past 12 Hours) Vital Signs Temp Pulse Resp BP Pulse Ox 08/19/21 07:06 36.6 C 72 18 121/66 96 Laboratory Results Laboratory Results - last 24 hr 08/19/21 08/19/21 08/19/21 06:56 06:56 06:56 WBC 5.53 RBC 4.93 Hgb 15.5 Hct 44.6 MCV 90.5 MCH 31.4 MCHC 34.8 RDW Std Deviation 46.1 RDW Coeff of Eben 13.9 Plt Count 109 L MPV 11.8 H Sodium 137 Potassium 4.4 Chloride 106 Carbon Dioxide 24 Anion Gap 7 BUN 29 H Creatinine 1.25 Est Cr Clr Drug Dosing 48.6 Est GFR ( Amer) 60.5 Est GFR (Non-Af Amer) 52.2 BUN/Creatinine Ratio 23.2 H Glucose 102 H POC Glucose Calcium 9.3 Vitamin B12 Folate 10.23 08/19/21 08/19/21 08/19/21 06:56 08:23 12:10 WBC RBC Hgb Hct MCV MCH MCHC RDW Std Deviation RDW Coeff of Eben Plt Count MPV Sodium Potassium Chloride Carbon Dioxide Anion Gap BUN Creatinine Est Cr Clr Drug Dosing Est GFR ( Amer) Est GFR (Non-Af Amer) BUN/Creatinine Ratio Glucose POC Glucose 117 H 234 H Calcium Vitamin B12 243 Folate 08/19/21 08/19/21 08/20/21 17:19 20:39 06:35 WBC RBC Hgb Hct MCV MCH MCHC RDW Std Deviation RDW Coeff of Eben Plt Count MPV Sodium Potassium Chloride Carbon Dioxide Anion Gap BUN Creatinine Est Cr Clr Drug Dosing Est GFR ( Amer) Est GFR (Non-Af Amer) BUN/Creatinine Ratio Glucose POC Glucose 200 H 125 H 98 Calcium Vitamin B12 Folate PG Care Time/CCT Total # of Minutes Spent Total Time Spent with Patient: Total time spent is greater than 50% in coordination of care (as documented) at patient's floor/unit and/or counseling patient: Coding Level of Care Code 26520 Subseq Hosp Care Lvl 3 Diagnoses Fall W19.XXXA Encounter type: initial encounter Dysphagia R13.10 Atrial fibrillation I48.21 Atrial fibrillation type: permanent Coronary artery disease I25.10 Diabetes mellitus E11.9 Chronic kidney disease stage: stage 3 (moderate) Chronic kidney disease stage 3 subtype: stage 3a (GFR 45-59) Diabetes mellitus complication status: with kidney complications Diabetes mellitus supervisor pit and auxiliaries insulin use: with halfway use 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 I69.30 Hypertension I10 Hypertension type: unspecified Stage III chronic kidney disease N18.3 BPH (benign prostatic hyperplasia) N40.0 Depression F32.9 Hypothyroid E03.9 Hypothyroidism type: acquired Dyslipidemia E78.5 GERD (gastroesophageal reflux disease) K21.9 Esophagitis presence: esophagitis presence not specified Memory loss R41.3 DVT prophylaxis Z29.9 Thrombocytopenia D69.6 Neck pain M54.2 B12 deficiency E53.8 (1) Diabetes mellitus Chronic kidney disease stage: stage 3 (moderate) Chronic kidney disease stage 3 subtype: stage 3a (GFR 45-59) Diabetes mellitus complication status: with kidney complications Diabetes mellitus supervisor pit and auxiliaries insulin use: with supervisor pit and auxiliaries use Diabetes mellitus type: type 2 (2) Atrial fibrillation Atrial fibrillation type: permanent Qualified Code(s): I48.21 - Permanent atrial fibrillation (3) Hypothyroid Hypothyroidism type: acquired Qualified Code(s): E03.9 - Hypothyroidism, unspecified (4) GERD (gastroesophageal reflux disease) Esophagitis presence: esophagitis presence not specified Qualified Code(s): K21.9 - Gastro-esophageal reflux disease without esophagitis (5) Hypertension Hypertension type: unspecified Qualified Code(s): I10 - Essential (primary) hypertension (6) Fall Encounter type: initial encounter Qualified Code(s): W19.XXXA - Unspecified fall, initial encounter
--- NOTE | 2021-08-19 15:33 | CT Scan Report ---
CT cervical spine wo con CLINICAL HISTORY: recent fall, R sided neck pain; eval Fx TECHNIQUE: Multidetector row helical CT of the cervical spine was performed without administration of intravenous contrast. Coronal and sagittal reformations were obtained. Automated dose lowering techn iques and/or adjustment according to patient size were utilized for this exam. Comparison: None available at the time of this dictation. FINDINGS: No acute fractures or subluxations are identified. Degenerative changes are seen in the visualized sp ine. The alignment is normal. Vascular calcifications are seen most prominently in the vertebral radu oscar. IMPRESSION: Degenerative changes without evidence of acute bony injury. ACT 112: Negative or not required by law. Electronically signed by: Doc Thomas M.D. 08/19/2021 3:31 PM
[2021-08-19] MEDS: ACETAMINOPHEN 500 MG TAB PO SCH ×2 (15:50→20:18)
[2021-08-19] MEDS: DICLOFENAC SOD 1% GEL 100 GM TUBE EXT SCH ×2 (15:50→20:22)
[2021-08-19] MEDS: ATORVASTATIN 40 MG TAB PO SCH (20:21)
[2021-08-20] MEDS: LEVOTHYROXINE SODIUM 50 MCG TABLET PO SCH (05:44)
[2021-08-20] MEDS ORDERED: Nursing to Pharmacy Communication SCH ×2 (05:45→16:00)
[2021-08-20] MEDS: INSULIN ASPART PER UNIT SC SCH ×4 (06:38→21:32)
--- NOTE | 2021-08-20 08:57 | Hospitalist Progress Note ---
Date of Service August 20, 2021 Assessment & Plan (1) Fall: Plan: Unwitnessed ground level fall without LOC. etiology? B12 level is "normal" but likely deficient given his age. --> B12 deficiency could certainly be contributing to heightened fall risk with proprioceptive deficits, etc. prior strokes could also be contributing to fall risk. cont PT/OT family interested in SNF rehab, maybe placement after that --> [facility] Just underwent EGD 08/[address] Brooks which showed intrinsic mild stenosis at GEJ which was dilated. Large hiatal hernia. Diffuse moderate inflammation characterized by erythema in the stomach. Biopsied and sent for h. pylori testing. Diet ordered following this evening, advance as tolerated (2) Dysphagia: Plan: long history of such video swallow shows no aspiration [facility] saw in consult - EGD today as above, stricture with dilation/biopsies taken Eliquis resumed advance as tolerated, easy to chew (3) Atrial fibrillation: Plan: rates controlled w/o AV chris agents resume Eliquis post EGD (4) Coronary artery disease: Plan: -CABG in 2003 -Continue atorvastatin, clopidogrel, rosuvastatin. 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 Ordered gentle IVF until able to keep up after EGD BMP in AM for stability (9) BPH (benign prostatic hyperplasia): Plan: Continue finasteride. no issues (10) Depression: Plan: Continue duloxetine (11) Hypothyroid: Plan: Continue levothyroxine TSH 2.9 in 04/2021 (12) Dyslipidemia: Plan: Continue atorvastatin, increased to 80mg daily (13) GERD (gastroesophageal reflux disease): Plan: -Continue Pepcid. 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 path pending dispo - SNF - hopefully tomorrow Admission and Anticipated Discharge Date Admission Date: August 12, 2021 Supervising Physician Co-Signing Physician Notes Attending Attestation - Chart reviewed in detail, care plan d/w REMBERTO Colon. I agree w/ the yung components of her documentation. EGD findings noted; GI assistance appreciated. Cont parenteral B12 supplementation while hospitalized. Dispo - SNF placement. Demetrius Kat MD Subjective patient evaluated this morning NPO for EGD No complaints at this time except being hungry and "I'll take a million dollars". no fever, chills, chest pain, shortness of breath, abd pain, nausea or vomiting at this time. Hopeful for d/c to rehab tomorrow. Questions/concerns addressed at this time. Review of Systems Review of Systems: All systems reviewed & are unremarkable except as noted in HPI & below Physical Exam Physical Exam: gen - nad, pleasant neck - no JVD; mouth - no lesions, mm slightly dry heart - irregular (rate 82bpm), s1 s2 lungs - CTA b/l abd - soft NT ND BS+ ext - no edema, pulses 2+ b/l neuro - strength b/l arms 5/5 Results & Data Results & Data ([facility]) Vital Signs (Past 12 Hours) Vital Signs Temp Pulse Pulse Resp BP BP Pulse Ox 08/20/21 07:51 36.4 C L 71 16 131/86 98 08/19/21 23:30 36.6 C 74 16 133/77 97 Laboratory Results 08/20/21 08/20/21 08/20/21 Range/Units 16:05 12:07 10:16 Sodium 136 (136-145) mmol/L Potassium 4.8 (3.5-5.1) mmol/L Chloride 106 (98-107) mmol/L Carbon Dioxide 23 (21-32) mmol/L Anion Gap 7 (3-11) BUN 24 H (6-23) mg/dl Creatinine 1.31 (0.6-1.4) mg/dl Est Cr Clr Drug Dosing 46.4 ml/min Est GFR ( Amer) 57.1 ml/min Est GFR (Non-Af Amer) 49.3 ml/min BUN/Creatinine Ratio 18.3 (10-20) Glucose 140 H (70-99(Fasting)) mg/dl POC Glucose 132 H 146 H (70-99) mg/dl Calcium 9.4 (8.5-10.1) mg/dl 08/20/21 08/19/21 08/19/21 Range/Units 06:35 20:39 17:19 Sodium (136-145) mmol/L Potassium (3.5-5.1) mmol/L Chloride (98-107) mmol/L Carbon Dioxide (21-32) mmol/L Anion Gap (3-11) BUN (6-23) mg/dl Creatinine (0.6-1.4) mg/dl Est Cr Clr Drug Dosing ml/min Est GFR ( Amer) ml/min Est GFR (Non-Af Amer) ml/min BUN/Creatinine Ratio (10-20) Glucose (70-99(Fasting)) mg/dl POC Glucose 98 125 H 200 H (70-99) mg/dl Calcium (8.5-10.1) mg/dl PG Care Time/CCT Total # of Minutes Spent Total Time Spent with Patient: Total time spent is greater than 50% in coordination of care (as documented) at patient's floor/unit and/or counseling patient: Coding Level of Care Code 24967 Subseq Hosp Care Lvl 2 Diagnoses Fall W19.XXXA Encounter type: initial encounter Dysphagia R13.10 Atrial fibrillation I48.21 Atrial fibrillation type: permanent Coronary artery disease I25.10 Diabetes mellitus E11.9 Chronic kidney disease stage: stage 3 (moderate) Chronic kidney disease stage 3 subtype: stage 3a (GFR 45-59) Diabetes mellitus complication status: with kidney complications Diabetes mellitus long distance billing operator insulin use: with long distance billing operator use 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 I69.30 Hypertension I10 Hypertension type: unspecified Stage III chronic kidney disease N18.3 BPH (benign prostatic hyperplasia) N40.0 Depression F32.9 Hypothyroid E03.9 Hypothyroidism type: acquired Dyslipidemia E78.5 GERD (gastroesophageal reflux disease) K21.9 Esophagitis presence: esophagitis presence not specified Memory loss R41.3 DVT prophylaxis Z29.9 Thrombocytopenia D69.6 Neck pain M54.2 B12 deficiency E53.8 (1) Diabetes mellitus Chronic kidney disease stage: stage 3 (moderate) Chronic kidney disease stage 3 subtype: stage 3a (GFR 45-59) Diabetes mellitus complication status: with kidney complications Diabetes mellitus care home insulin use: with care home use Diabetes mellitus type: type 2 (2) Atrial fibrillation Atrial fibrillation type: permanent Qualified Code(s): I48.21 - Permanent atrial fibrillation (3) Hypothyroid Hypothyroidism type: acquired Qualified Code(s): E03.9 - Hypothyroidism, unspecified (4) GERD (gastroesophageal reflux disease) Esophagitis presence: esophagitis presence not specified Qualified Code(s): K21.9 - Gastro-esophageal reflux disease without esophagitis (5) Hypertension Hypertension type: unspecified Qualified Code(s): I10 - Essential (primary) hypertension (6) Fall Encounter type: initial encounter Qualified Code(s): W19.XXXA - Unspecified fall, initial encounter
[2021-08-20] MEDS: ACETAMINOPHEN 500 MG TAB PO SCH ×3 (09:14→22:01)
[2021-08-20] MEDS: INSULIN HUMAN NPH SC SCH ×2 (09:17→17:54)
[2021-08-20] MEDS: CARBIDOPA/LEVODOPA 25/100MG TAB PO SCH ×3 (09:18→22:00)
[2021-08-20] MEDS: DICLOFENAC SOD 1% GEL 100 GM TUBE EXT SCH ×4 (09:18→21:59)
[2021-08-20] MEDS: CYANOCOBALAMIN 1000 MCG/ML VIAL IM SCH (09:18)
[2021-08-20] MEDS: ARTIFICIAL TEARS OP SCH ×2 (09:18→22:02)
[2021-08-20] MEDS: DULoxetine HCL 60 MG CAP PO SCH (09:18)
[2021-08-20] MEDS: CLOPIDOGREL BISULFATE 75 MG TAB PO SCH (09:18)
[2021-08-20] MEDS: FAMOTIDINE 20 MG TAB PO SCH ×2 (09:25→22:02)
[2021-08-20] MEDS: METHYLCELLULOSE POWDER 454 GM JAR PO SCH (09:25)
[2021-08-20] MEDS: MAGNESIUM OXIDE 400 MG TAB PO SCH ×2 (09:25→22:00)
[2021-08-20] MEDS ORDERED: FAMOTIDINE 20 MG in SYRINGE 3 ML IV ONE (09:45)
--- NOTE | 2021-08-20 10:23 | History & Physical Bridge Note ---
Date of Service August 20, 2021 History & Physical Bridge Note I have examined the patient, reviewed the History & Physical and in the interval since the performance of the History & Physical I have noted the following changes of clinical significance: no changes noted Patient denies new issues overnight since seen by Dr. Brooks. He has been NPO. He understands an EGD and is agreeable to proceeding. Keep NPO and plan for EGD this afternoon for further evaluation of his dysphagia.
[2021-08-20 11:05] LABS: BUN Creatinine Ratio 18.3 (10-20); Calcium 9.4 mg/dl (8.5-10.1); Creatinine Clr Calc Pharmacy 46.4 ml/min; Est GFR (African American) 57.1 ml/min; Est GFR (Non-African American) 49.3 ml/min; Potassium 4.8 mmol/L (3.5-5.1)
--- NOTE | 2021-08-20 11:21 | Anesthesiology Consultation ---
Date of Service August 20, 2021 Assessment & Plan (1) Encounter for pre-operative examination: Chart Review Chart Review: Acceptable Risk for Surgery and Patient NOT seen in Pre Admission Testing Consults Requested none History Surgery Operation Date: 08/20/21 16:45 Proposed Procedures p Esophagogastroduodenoscopy Dr. Cecilia Brooks MD Height/Weight Height: 5 ft 10 in Weight: 89.5 kg Allergies Allergy/AdvReac Type Severity Reaction Status Date / Time hydrocodone AdvReac Mild Dizziness, Verified 08/10/21 14:47 [From Panlor Nausea (hydrocodone-acetamin)] oxycodone AdvReac Mild NAUSEA/VOMI Verified 08/10/21 14:47 TING tramadol AdvReac Mild confusion Verified 08/10/21 14:47 Medications Home Medications Medication Instructions Recorded Confirmed Last Taken apixaban 2.5 mg tablet (Eliquis) 2.5 mg PO BID #180 tab 08/21/20 08/10/21 08/10/21 atorvastatin 80 mg tablet 80 mg PO HS #90 tab 08/21/20 08/10/21 08/09/21 finasteride 5 mg tablet 5 mg PO QAM #90 tab 08/21/20 08/10/21 08/10/21 levothyroxine 50 mcg tablet 50 mcg PO QAM #90 tab 08/21/20 08/10/21 08/10/21 polyethylene glycol 3350 17 17 g PO DAILY PRN 09/14/20 08/10/21 Unknown gram/dose oral powder (Miralax) triamcinolone acetonide 0.1 % 1 applic TOPICAL BID #30 g 10/02/20 08/10/21 05/04/21 08:00 topical cream glycerin 2 drp OPHTHALMIC (EYE) BID 10/17/20 08/10/21 08/10/21 blood sugar diagnostic (OneTouch #100 ea 10/18/20 05/28/21 Unknown Ultra Blue Test Strip) lancets 33 gauge (OneTouch Delica #100 ea 10/18/20 05/28/21 Unknown Plus Lancet) duloxetine 60 mg capsule,delayed 60 mg PO DAILY #90 cap 10/30/20 08/10/21 08/10/21 release omeprazole 20 mg capsule,delayed 40 mg PO QAM #180 cap 04/12/1508/10/21 08/10/21 release blood-glucose meter (OneTouch #1 ea 10/31/20 05/28/21 Unknown Ultra2 Meter) methylcellulose (with sugar) 2 2 g PO DAILY #454 g 01/19/21 08/10/21 08/10/21/19 gram oral powder (Fiber Therapy (methylcellulose-sugar)) pen needle, diabetic 32 gauge x #100 ea 02/15/21 05/28/21 Unknown " (BD Ultra-Fine Mary Carmen Pen Needle) famotidine 20 mg tablet 20 mg PO BID #60 tab 03/28/21 08/10/21 08/10/21 docusate sodium 100 mg capsule 100 mg PO BID #60 cap 04/03/21 08/10/21 08/10/21 hydrocortisone 2.5 % topical cream 1 applic NE DAILY PRN #30 g 04/09/21 08/10/21 Unknown with perineal applicator pregabalin 100 mg capsule 100 mg PO TID #90 cap 04/19/21 08/10/21 08/10/21 diclofenac sodium 1 % topical gel 4 g TOP QID PRN 05/04/21 08/10/21 Unknown insulin NPH-regular 70-30 U-100 12 unit SQ BID #15 ml 05/17/21 08/10/21 08/10/21 insulin 100 unit/mL subcutaneous pen (Novolin 70-30 FlexPen U-100 Insulin) carbidopa 25 mg-levodopa 100 mg 0.5 tab PO TID #45 tab 05/21/21 08/10/21 08/10/21 tablet (Sinemet) lisinopril 10 mg tablet 10 mg PO QAM #45 tab 05/28/21 08/10/21 08/10/21 lisinopril 5 mg tablet 5 mg PO DAILY #30 tab 05/28/21 08/10/21 08/10/21 magnesium oxide 400 mg PO BID #60 tab 06/04/21 08/10/21 08/10/21 clopidogrel 75 mg tablet 75 mg PO QAM #90 tab 06/11/21 08/10/21 08/10/21 Active Medications Generic Name Dose Route Start Last Admin Trade Name Freq PRN Reason Stop Dose Admin Acetaminophen 650 mg 08/10/21 19:32 08/17/21 21:05 Acetaminophen 325 Mg Tab PO 09/09/21 19:31 650 mg Q4H PRN Administration Pain or Fever Acetaminophen 1,000 mg 08/19/21 15:00 08/20/21 09:14 Acetaminophen 500 Mg Tab PO 09/18/21 14:59 Not Given TID STEPH Amlodipine Besylate 10 mg 08/12/21 09:00 08/19/21 07:05 Amlodipine Besylate 5 Mg Tab PO 09/11/21 08:59 10 mg QAM STEPH Administration Apixaban 2.5 mg 08/10/21 21:00 08/17/21 20:59 Apixaban 2.5 Mg Tab PO 09/09/21 20:59 2.5 mg BID STEPH Administration Artificial Tears 2 drops 08/10/21 21:00 08/20/21 09:18 Artificial Tears OP 09/09/21 20:59 2 drops BID STEPH Administration Atorvastatin Calcium 80 mg 08/10/21 21:00 08/19/21 20:21 Atorvastatin 40 Mg Tab PO 09/09/21 20:59 80 mg HS STEPH Administration Carbidopa/Levodopa 0.5 tab 08/10/21 21:00 08/20/21 09:18 Carbidopa/Levodopa 25/100mg Tab PO 09/09/21 20:59 0.5 tab TID STEPH Administration Clopidogrel Bisulfate 75 mg 08/11/21 09:00 08/20/21 09:18 Clopidogrel Bisulfate 75 Mg Tab PO 09/10/21 08:59 75 mg QAM STEPH Administration Cyanocobalamin 1,000 mcg 08/19/21 10:00 08/20/21 09:18 Cyanocobalamin 1000 Mcg/Ml Vial IM 09/18/21 09:59 1,000 mcg QAM STEPH Administration Diclofenac Sodium 4 gm 08/19/21 17:00 08/20/21 09:18 Diclofenac Sod 1% Gel 100 Gm Tube EXT 09/18/21 16:59 4 gm QID STEPH Administration Duloxetine HCl 60 mg 08/11/21 09:00 08/20/21 09:18 Duloxetine Hcl 60 Mg Cap PO 09/10/21 08:59 60 mg DAILY STEPH Administration Famotidine 20 mg 08/10/21 21:00 08/20/21 09:25 Famotidine 20 Mg Tab PO 09/09/21 20:59 Not Given BID STEPH Finasteride 5 mg 08/11/21 09:00 08/19/21 07:07 Finasteride 5 Mg Tab PO 09/10/21 08:59 5 mg QAM STEPH Administration Hydralazine HCl 10 mg 08/10/21 16:44 08/12/21 23:35 Hydralazine Hcl 20 Mg/Ml Vial IV 09/09/21 16:43 10 mg Q8 PRN Administration Blood Pressure - High Insulin Aspart 0 units 08/20/21 06:00 08/20/21 06:38 Insulin Aspart Per Unit SC 09/09/21 16:29 Not Given Q6 STEPH Insulin Human NPH 10 units 08/11/21 08:00 08/20/21 09:17 Insulin Human Nph SC 09/10/21 07:59 10 units BIDM STEPH Administration Levothyroxine Sodium 50 mcg 08/11/21 06:30 08/20/21 05:44 Levothyroxine Sodium 50 Mcg Tablet PO 09/10/21 06:29 Not Given DAILYBB STEPH Lisinopril 40 mg 08/13/21 09:00 08/19/21 07:07 Lisinopril 40 Mg Tab PO 09/12/21 08:59 40 mg QAM STEPH Administration Magnesium Oxide 400 mg 08/10/21 21:00 08/20/21 09:25 Magnesium Oxide 400 Mg Tab PO 09/09/21 20:59 Not Given BID STEPH Methylcellulose 2 gm 08/11/21 09:00 08/20/21 09:25 Methylcellulose Powder 454 Gm Jar PO 09/10/21 08:59 Not Given DAILY STEPH Past Medical History Medical History Abnormal tympanic membrane Left and Right Atrial fibrillation with rapid ventricular response Atrial flutter with rapid ventricular response Bilateral otitis externa BPH (benign prostatic hyperplasia) 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 Yates--per son pt does not have any deficits Bright red blood per rectum Coronary artery disease Depression Difficulty swallowing DM type 2 (diabetes mellitus, type 2) Encounter for pre-operative examination Foreign body in lip GERD (gastroesophageal reflux disease) Hearing deficit History of cellulitis HTN (hypertension) Hyperlipidemia Hypothyroid Inflamed external hemorrhoid Jaw disease Kidney stones Memory impairment Myocardial Infarction 2003--follows with Dr. [place] Neuropathy On anticoagulant therapy eliquis daily Osteoarthritis Paroxysmal atrial flutter Productive cough Stage III chronic kidney disease Stroke x3 total---follows with Dr. Yates Transient hypotension Upper respiratory infection UTI (urinary tract infection) Past Family History Family History Father Diabetes Coronary heart disease Mother Diabetes Coronary heart disease Myocardial infarction Sister Breast cancer Brother Coronary heart disease Son Family history of diabetes mellitus Family/Other Family history of diabetes mellitus grandson Other No family history of adverse response to anesthesia Denies family history of Ovarian cancer Prostate cancer Colorectal cancer Past Surgical History Surgical History History of bilateral cataract extraction History of esophagogastroduodenoscopy (EGD) History of kidney surgery History of lithotripsy x2 History of lumbar laminectomy History of tooth extraction Hx of CABG 2003 @ [facility] [place] Social History Smoking Status: Never smoker Hx Alcohol Use: No Hx Substance Use: No substance use type: does not use Physical Exam Vital Signs Last Vital Signs Temp 97.5 F L 08/20/21 07:51 Pulse 71 08/20/21 07:51 Resp 16 08/20/21 07:51 BP 131/86 08/20/21 07:51 Pulse Ox 98 08/20/21 07:51 Testing Laboratory Results 08/19/21 06:56 08/20/21 10:16 PT 10.9 Seconds (9.0-12.0) 08/10/21 11:51 INR 1.1 (0.9-1.1) 08/10/21 11:51 Urine Color Yellow 08/10/21 13:51 Urine Appearance Clear (Clear) 08/10/21 13:51 Urine pH 6.5 (4.5-7.5) 08/10/21 13:51 Ur Specific [place] 1.014 (1.000-1.030) 08/10/21 13:51 Urine Protein Trace (Negative) H 08/10/21 13:51 Urine Glucose (UA) 1+ (Negative) H 08/10/21 13:51 Urine Ketones Negative (Negative) 08/10/21 13:51 Urine Nitrite Negative (Negative) 08/10/21 13:51 Ur Leukocyte Esterase Negative (Negative) 08/10/21 13:51 Urine WBC (Auto) 1-5 /hpf (0-5) 08/10/21 13:51 Urine RBC (Auto) 0-4 /hpf (0-4) 08/10/21 13:51 U Hyaline Cast (Auto) 1-5 /lpf (0-5) 08/10/21 13:51 U Epithel Cells (Auto) 0-5 /lpf (0-5) 08/10/21 13:51 Urine Bacteria (Auto) Negative (Negative) 08/10/21 13:51 08/20/21 06:35 POC Glucose 98 Electrocardiogram Date: 08/10/21 Findings: + AFIB @
[2021-08-20] MEDS ORDERED: SODIUM CHLORIDE 0.9% 500 ML IV SCH (12:30)
--- NOTE | 2021-08-20 14:29 | GI REPORT ---
Patient Name: Sahil Martinez Procedure Date: 08/20/2021 1:59 PM Date of : 1935 Admit Type: Inpatient Age: 85 Gender: Male Attending MD: Gregory Brooks MD Procedure: Upper GI endoscopy Providers: Gregory Brooks MD Referring MD: Demetrius Kat Indications: Dysphagia, Abnormal CT of the GI tract Medicines: Monitored Anesthesia Care Complications: No immediate complications. Estimated blood loss: None. Estimated Blood Loss: Estimated blood loss: none. Procedure: Pre-Anesthesia Assessment: - Prior Anticoagulants: The patient has taken no previous anticoagulant or antiplatelet agents. - ASA Grade Assessment: III - A patient with severe systemic disease. After obtaining informed consent, the endoscope was passed under direct vision. Throughout the procedure, the patient's blood pressure, pulse, and oxygen saturations were monitored continuously. The Endoscope was introduced through the mouth, and advanced to the second part of duodenum. The upper GI endoscopy was accomplished without difficulty. The patient tolerated the procedure well. Findings: One benign-appearing, intrinsic mild stenosis was found at the gastroesophageal junction. The stenosis was traversed. A TTS dilator was passed through the scope. Dilation with an 18-19-20 mm balloon dilator was performed to 19 mm. The dilation site was examined following endoscope reinsertion and showed moderate improvement in luminal narrowing. Estimated blood loss: none. A large hiatal hernia was present. Diffuse moderate inflammation characterized by erythema was found in the stomach. Biopsies were taken with a cold forceps for Helicobacter pylori testing. Estimated blood loss: none. The duodenal bulb and second portion of the duodenum were normal. Impression: - Benign-appearing esophageal stenosis. Dilated. - Large hiatal hernia. - Gastritis. Biopsied. - Normal duodenal bulb and second portion of the duodenum. Recommendation: - Return patient to hospital shafer for ongoing care. - Advance diet as tolerated today. - Await pathology results. Gregory Brooks MD 08/20/2021 2:29:28 PM This report has been signed electronically. Note Initiated On: 08/20/2021 1:59 PM Number of Addenda: 0 I attest to the content of the Intraoperative Record and orders documented therein, exceptions below {[id number]}
[2021-08-20] MEDS ORDERED: LIDOCAINE 2% 2 ML VIAL/AMP(20MG/ML) INFIL ONE (14:32)
[2021-08-20] MEDS ORDERED: PROPOFOL IV EMULSION 10 MG/ML 20 ML VIAL IV ONE (14:32)
--- NOTE | 2021-08-20 14:50 | Anesthesiology Progress Note ---
Date of Service August 20, 2021 Anesthesia Post Procedure Vital Signs Vital Signs: Temp Pulse Pulse Resp BP BP Pulse Ox 08/20/21 14:30 87 16 99/64 L 96 08/20/21 13:34 97.2 F L 76 16 131/94 98 08/20/21 07:51 97.5 F L 71 16 131/86 98 08/19/21 23:30 97.9 F 74 16 133/77 97 08/19/21 16:37 97.3 F L 66 18 142/69 H 96 Pain Intensity Bilateral Posterior Neck: Pain Intensity: 7 Transfer of Care Handoff Completed per policy Notes Mental Status: alert / awake / arousable and participated in evaluation Patient Amnestic to Procedure: Yes Nausea / Vomiting: adequately controlled Pain: adequately controlled Airway Patency, RR, SpO2: stable & adequate BP & HR: stable & adequate Hydration State: stable & adequate Anesthetic Complications: no major complications apparent and Pt Satisfied with anesthetic care
[2021-08-20] MEDS: lisinopril 40 MG TAB PO SCH (16:10)
[2021-08-20] MEDS: amLODIPine BESYLATE 5 MG TAB PO SCH (16:10)
[2021-08-20] MEDS: FINASTERIDE 5 MG TAB PO SCH (16:10)
[2021-08-20] MEDS: ATORVASTATIN 40 MG TAB PO SCH (21:59)
[2021-08-20] MEDS: APIXABAN 2.5 MG TAB PO SCH (22:41)
[2021-08-21] MEDS: LEVOTHYROXINE SODIUM 50 MCG TABLET PO SCH (05:41)
[2021-08-21 06:31] LABS: BUN Creatinine Ratio 21.3 (10-20); Creatinine Clr Calc Pharmacy 49.8 ml/min; Est GFR (African American) 62.3 ml/min; Est GFR (Non-African American) 53.7 ml/min; Potassium 4.6 mmol/L (3.5-5.1)
[2021-08-21 06:42] LABS: Hematocrit (blood only) 43.5 % (42-52); Hemoglobin 14.8 g/dL (14.0-18.0); Mean Corpuscular Hemoglobin 30.8 pg (25-34); Mean Corpuscular Volume 90.6 fL (80-100); Mean Platelet Volume 12.4 fL (7.4-10.4); Platelet Count 123 K/uL (130-400); RDW Coefficient of Variation 13.7 % (11.5-14.5); RDW Standard Deviation 44.7 fL (36.4-46.3); White Blood Count 5.44 K/uL (4.8-10.8)
[2021-08-21 06:50] LABS: Platelet Estimate Decreased (Normal)
--- NOTE | 2021-08-21 08:16 | Hospitalist Progress Note ---
Date of Service August 21, 2021 Assessment & Plan (1) Fall: Plan: Unwitnessed ground level fall without LOC. etiology? B12 level is "normal" but likely deficient given his age. --> B12 deficiency could certainly be contributing to heightened fall risk with proprioceptive deficits, etc. prior strokes could also be contributing to fall risk. cont PT/OT family interested in SNF rehab, maybe placement after that --> hopefully centre care tomorrow Just underwent EGD 08/[address] Brooks which showed intrinsic mild stenosis at GEJ which was dilated. Large hiatal hernia. Diffuse moderate inflammation characterized by erythema in the stomach. Biopsied and sent for h. pylori testing. Diet ordered following this evening, advance as tolerated (2) Dysphagia: Plan: long history of such video swallow shows no aspiration [facility] saw in consult - EGD today as above, stricture with dilation/biopsies taken Eliquis resumed advance as tolerated, easy to chew (3) Atrial fibrillation: Plan: rates controlled w/o AV chris agents resume Eliquis post EGD (4) Coronary artery disease: Plan: -CABG in 2003 -Continue atorvastatin, clopidogrel, rosuvastatin. 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 Ordered gentle IVF until able to keep up after EGD BMP in AM for stability (9) BPH (benign prostatic hyperplasia): Plan: Continue finasteride. no issues (10) Depression: Plan: Continue duloxetine (11) Hypothyroid: Plan: Continue levothyroxine TSH 2.9 in 04/2021 (12) Dyslipidemia: Plan: Continue atorvastatin, increased to 80mg daily (13) GERD (gastroesophageal reflux disease): Plan: -Continue Pepcid. 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 path pending dispo - SNF - hopefully tomorrow Admission and Anticipated Discharge Date Admission Date: August 12, 2021 Results & Data Results & Data ([facility]) Vital Signs (Past 12 Hours) Vital Signs Temp Pulse Pulse Resp BP Pulse Ox 08/21/21 07:42 36.8 C 69 18 132/73 96 08/20/21 21:42 36.4 C L 67 20 143/69 H 98 Laboratory Results 08/21/21 08/21/21 08/21/21 Range/Units 07:51 05:26 05:26 WBC 5.44 (4.8-10.8) K/uL RBC 4.80 (4.7-6.1) M/uL Hgb 14.8 (14.0-18.0) g/dL Hct 43.5 (42-52) % MCV 90.6 (80-100) fL MCH 30.8 (25-34) pg MCHC 34.0 (32-36) g/dL RDW Std Deviation 44.7 (36.4-46.3) fL RDW Coeff of Eben 13.7 (11.5-14.5) % Plt Count 123 L (130-400) K/uL MPV 12.4 H (7.4-10.4) fL Platelet Estimate Decreased L (Normal) Sodium 137 (136-145) mmol/L Potassium 4.6 (3.5-5.1) mmol/L Chloride 108 H (98-107) mmol/L Carbon Dioxide 24 (21-32) mmol/L Anion Gap 5 (3-11) BUN 26 H (6-23) mg/dl Creatinine 1.22 (0.6-1.4) mg/dl Est Cr Clr Drug Dosing 49.8 ml/min Est GFR ( Amer) 62.3 ml/min Est GFR (Non-Af Amer) 53.7 ml/min BUN/Creatinine Ratio 21.3 H (10-20) Glucose 92 (70-99(Fasting)) mg/dl POC Glucose 106 H (70-99) mg/dl Calcium 9.0 (8.5-10.1) mg/dl 08/20/21 08/20/21 08/20/21 Range/Units 20:39 16:05 12:07 WBC (4.8-10.8) K/uL RBC (4.7-6.1) M/uL Hgb (14.0-18.0) g/dL Hct (42-52) % MCV (80-100) fL MCH (25-34) pg MCHC (32-36) g/dL RDW Std Deviation (36.4-46.3) fL RDW Coeff of Eben (11.5-14.5) % Plt Count (130-400) K/uL MPV (7.4-10.4) fL Platelet Estimate (Normal) Sodium (136-145) mmol/L Potassium (3.5-5.1) mmol/L Chloride (98-107) mmol/L Carbon Dioxide (21-32) mmol/L Anion Gap (3-11) BUN (6-23) mg/dl Creatinine (0.6-1.4) mg/dl Est Cr Clr Drug Dosing ml/min Est GFR ( Amer) ml/min Est GFR (Non-Af Amer) ml/min BUN/Creatinine Ratio (10-20) Glucose (70-99(Fasting)) mg/dl POC Glucose 158 H 132 H 146 H (70-99) mg/dl Calcium (8.5-10.1) mg/dl 08/20/21 Range/Units 10:16 WBC (4.8-10.8) K/uL RBC (4.7-6.1) M/uL Hgb (14.0-18.0) g/dL Hct (42-52) % MCV (80-100) fL MCH (25-34) pg MCHC (32-36) g/dL RDW Std Deviation (36.4-46.3) fL RDW Coeff of Eben (11.5-14.5) % Plt Count (130-400) K/uL MPV (7.4-10.4) fL Platelet Estimate (Normal) Sodium 136 (136-145) mmol/L Potassium 4.8 (3.5-5.1) mmol/L Chloride 106 (98-107) mmol/L Carbon Dioxide 23 (21-32) mmol/L Anion Gap 7 (3-11) BUN 24 H (6-23) mg/dl Creatinine 1.31 (0.6-1.4) mg/dl Est Cr Clr Drug Dosing 46.4 ml/min Est GFR ( Amer) 57.1 ml/min Est GFR (Non-Af Amer) 49.3 ml/min BUN/Creatinine Ratio 18.3 (10-20) Glucose 140 H (70-99(Fasting)) mg/dl POC Glucose (70-99) mg/dl Calcium 9.4 (8.5-10.1) mg/dl PG Care Time/CCT Total # of Minutes Spent Total Time Spent with Patient: Total time spent is greater than 50% in coordination of care (as documented) at patient's floor/unit and/or counseling patient: Coding Diagnoses Fall W19.XXXA Encounter type: initial encounter Dysphagia R13.10 Atrial fibrillation I48.21 Atrial fibrillation type: permanent Coronary artery disease I25.10 Diabetes mellitus E11.9 Diabetes mellitus type: type 2 Diabetes mellitus emt intermediate insulin use: with mcc use Diabetes mellitus complication status: with kidney complications Chronic kidney disease stage: stage 3 (moderate) Chronic kidney disease stage 3 subtype: stage 3a (GFR 45-59) Chronic ischemic vertebrobasilar artery brainstem stroke I69.30 Hypertension I10 Hypertension type: unspecified Stage III chronic kidney disease N18.3 BPH (benign prostatic hyperplasia) N40.0 Depression F32.9 Hypothyroid E03.9 Hypothyroidism type: acquired Dyslipidemia E78.5 GERD (gastroesophageal reflux disease) K21.9 Esophagitis presence: esophagitis presence not specified Memory loss R41.3 DVT prophylaxis Z29.9 Thrombocytopenia D69.6 Neck pain M54.2 B12 deficiency E53.8 (1) Fall Encounter type: initial encounter Qualified Code(s): W19.XXXA - Unspecified fall, initial encounter (2) Atrial fibrillation Atrial fibrillation type: permanent Qualified Code(s): I48.21 - Permanent atrial fibrillation (3) Diabetes mellitus Diabetes mellitus type: type 2 Diabetes mellitus mcc insulin use: with emt intermediate use Diabetes mellitus complication status: with kidney complications Chronic kidney disease stage: stage 3 (moderate) Chronic kidney disease stage 3 subtype: stage 3a (GFR 45-59) (4) Hypertension Hypertension type: unspecified Qualified Code(s): I10 - Essential (primary) hypertension (5) Hypothyroid Hypothyroidism type: acquired Qualified Code(s): E03.9 - Hypothyroidism, unspecified (6) GERD (gastroesophageal reflux disease) Esophagitis presence: esophagitis presence not specified Qualified Code(s): K21.9 - Gastro-esophageal reflux disease without esophagitis
[2021-08-21] MEDS: APIXABAN 2.5 MG TAB PO SCH (08:58)
[2021-08-21] MEDS: CARBIDOPA/LEVODOPA 25/100MG TAB PO SCH (08:58)
[2021-08-21] MEDS: MAGNESIUM OXIDE 400 MG TAB PO SCH (08:59)
[2021-08-21] MEDS: ACETAMINOPHEN 500 MG TAB PO SCH (08:59)
[2021-08-21] MEDS: lisinopril 40 MG TAB PO SCH (08:59)
[2021-08-21] MEDS: FINASTERIDE 5 MG TAB PO SCH (08:59)
[2021-08-21] MEDS: FAMOTIDINE 20 MG TAB PO SCH (08:59)
[2021-08-21] MEDS: DULoxetine HCL 60 MG CAP PO SCH (09:00)
[2021-08-21] MEDS: amLODIPine BESYLATE 5 MG TAB PO SCH (09:00)
[2021-08-21] MEDS: CLOPIDOGREL BISULFATE 75 MG TAB PO SCH (09:00)
[2021-08-21] MEDS: DICLOFENAC SOD 1% GEL 100 GM TUBE EXT SCH (09:00)
[2021-08-21] MEDS: METHYLCELLULOSE POWDER 454 GM JAR PO SCH (09:01)
[2021-08-21] MEDS: ARTIFICIAL TEARS OP SCH (09:02)
[2021-08-21] MEDS: CYANOCOBALAMIN 1000 MCG/ML VIAL IM SCH (09:02)
--- NOTE | 2021-08-21 09:05 | Discharge Summary ---
Date of Service August 21, 2021 Admission HPI Per Admitting Provider This is an 85 y/o male with PMH of CVA, a-fibb on Eliquis, HTN, DM2, CAD, BPH, hypothyroidism, and dementia who presents today from home after an unwitnessed fall. Per patient's son who is at the bedside, his heard the patient fall in the bathroom and went to check on him when she foudn hm sitting on the floor, leaned up against the wall. Patient tells me he was standing up to urinate when he fell. He is unable to provide more context about events leading up to fall, but states he hit the back of his head. Denies LOC, acute change in baseline mentation, N/V, and visual changes. Son reports he has had several falls over the past two months, some that have been witnessed and he states that the patient was feeling dizzy prior to those falls. He has also been getting progressively weaker in his legs. Patient is an insulin dependent diabetic, he takes his AM Novolog around 7 before his son goes to work and often sleeps until around 11 most days, which is a new habit for him. Son states he has recently increased pt's Novolog from 12 units BID to 18 BID, as his sugars remained high on 12 units BID. Patient resides with his son and his who have been managing his medications and serve as his primary caretakers, however they have had some difficulty taking care of him recently at home due to his dementia and progressive weakness. They are interested in potentially placing him in a nursing facility if possible. The patient is hemodynamically stable in the ED and upon my examination and is pleasant and cooperative, able to participate in the exam. CT head did not reveal acute intracranial hemorrhage, midline shift, intracranial mass, hydrocephalus, territorial ischemia or abnormal extra-axial collection. Pt is COVID negative in ED and has received his initial vaccination series, without booster. Admission Exam Per Admitting Provider General: awake, alert, no apparent distress Head: Normocephalic, atraumatic ENT: PERRL, EOMI, no pharyngeal exudate, mucous membranes moist Chest: Clear to auscultation, on room air, no adventitious breath sounds Cardiac: Regular rate and rhythm, no murmur, no JVD, normal peripheral pulses, good capillary refill Abdominal: NABS x 4 quadrants, soft, nontender to palpation, no rebound, guarding or tenderness Extremities: Normal inspection, no peripheral edema or erythema, calfs nontender to palpation Psych: Normal mood and affect Neuro: AAO x 3, strength intact bilaterally and rated 5/5, no motor deficits, speech is clear, no peripheral sensory deficits Skin: no rash or erythema Principal Diagnosis Fall, B12 deficiency, Dysphagia, HTN Discharge Exam gen - wn/wd, NAD, pleasant and cooperative neck - no JVD; mouth - no lesions, mm slightly dry heart - irregular (rate 82bpm), s1 s2 lungs - CTA b/l abd - soft NT ND BS+ ext - no edema, pulses 2+ b/l neuro - strength b/l arms 5/5 Discharge Data Allergies Allergy/AdvReac Type Severity Reaction Status Date / Time hydrocodone AdvReac Mild Dizziness, Verified 08/20/21 13:30 [From Panlor Nausea (hydrocodone-acetamin)] oxycodone AdvReac Mild NAUSEA/VOMI Verified 08/20/21 13:30 TING tramadol AdvReac Mild confusion Verified 08/20/21 13:30 Consultations 08/10/21 14:36 ED Decision to Admit Stat 08/17/21 14:29 Consult Gastroenterology Routine Procedures Performed Operation Date: 08/20/21 16:45 Actual Procedures p EGD Biopsy Dilatation - Gregory Brooks MD Ordered Studies Chest X-Ray 08/10/21 11:25 SINGLE VIEW CHEST CLINICAL HISTORY: Fall. FINDINGS: An AP, portable, upright chest radiograph is compared to study dated 05/09/2021. Correlation is made with chest CT dated 11/11/2017. The patient is status post midline sternotomy. The heart is enlarged noting atherosclerotic calcification of the thoracic aorta. The pulmonary vasculature is noncongested. Chronic interstitial thickening is similar to previous. Scarring/atelectasis is noted at the lung bases. No airspace consolidation or large pleural effusion is identified. No pneumothorax is seen. The skeletal structures are osteopenic. The bony thorax is grossly intact. IMPRESSION: Cardiomegaly with no acute cardiopulmonary abnormality. ACT 112: Negative or not required by law. Electronically signed by: Crow Wells M.D. 08/10/2021 12:[address] 08/10/21 11:26 CT head/brain wo con CLINICAL HISTORY: 85 years-old Male with FALL. Acute head injury status post fall TECHNIQUE: Multiple axial CT images of the head were obtained without contrast. A dose lowering technique was utilized adhering to the principles of ALARA. CT DOSE: 729.78 mGycm COMPARISON: Head CT 05/10/2021 FINDINGS: No acute intracranial hemorrhage, midline shift, intracranial mass, hydrocephalus, territorial ischemia or abnormal extra-axial collection. Unchanged right temporal lobe encephalomalacia. Age-related involutional changes. White matter hypodensities suggest chronic microvascular ischemic disease. Cerebral vascular calcifications. Chronic lacunar infarcts of the left caudate nucleus and thalamus. The calvarium is intact. Large bilateral mastoid effusions with fluid within the middle ear cavities. 3.7 cm focus of polypoid mucosal thickening involves the posterior left nasal aperture. Prior bilateral lens repair. IMPRESSION: No acute intracranial abnormality or calvarial fracture. ACT 112: Negative or not required by law. The above report was generated using voice recognition software. It may contain grammatical, syntax or spelling errors. Electronically signed by: Ranjeet Cisneros M.D. 08/10/2021 12:20 PM Barium Swallow X-Ray 08/17/21 13:00 DOUBLE CONTRAST BARIUM ESOPHAGRAM CLINICAL HISTORY: Dysphagia. Reported history of Schatzki's ring. COMPARISON STUDY: No priors. TECHNIQUE: A standard air contrast barium esophagram is performed. Multiple spot images of the esophagus are acquired both upright and prone. FINDINGS: The patient swallowed barium without difficulty. The patient declined the barium pill. There is severe esophageal dysmotility. A Schatzki's ring is suggested in the distal esophagus. The mucosal pattern is normal. There is no evidence of intrinsic or extrinsic mass lesion. No aspiration was seen. There is focal narrowing just above the gastroesophageal junction which never fully distended. No gastroesophageal reflux could be elicited by having the patient perform the Valsalva maneuver. There is a moderate sliding-type hiatal hernia. Midline sternotomy wires are noted. Fluoroscopy time: 2.3 minutes. Fluoroscopic images: 16 spot images and 2 cine loops IMPRESSION: 1. Severe esophageal dysmotility. 2. A Schatzki's ring is suggested in the distal esophagus. 3. There is focal narrowing just above the gastroesophageal junction which never fully distended during the examination. This could represent esophageal spasm or possibly stricture. This could be further assessed with endoscopy if clinically warranted. 4. Moderate sliding-type hiatal hernia. 5. The patient declined the barium pill. ACT 112: Negative or not required by law. Electronically signed by: Crow Wells M.D. 08/17/2021 2:14 PM Videofluoroscopic Swallow 08/17/21 13:15 MODIFIED BARIUM SWALLOW CLINICAL HISTORY: Rule out aspiration. History of stroke. Dysarthria. COMPARISON STUDY: Modified swallow July 03, 2011. FLUOROSCOPY TIME: 1.3 minutes. TECHNIQUE: A modified barium swallow was performed in conjunction with Speech Pathology. The patient ingested varying consistencies of barium containing material. Video fluoroscopy was performed. FINDINGS: No aspiration was noted with swallows of thin liquids. Epiglottic inversion was normal. Laryngeal elevation was normal. There is prolonged mastication with crackers with paste. No aspiration was noted. Following mechanism was intact with pudding consistency. Please note that the barium swallow will be reported separately. IMPRESSION: 1. Intact swallowing mechanism. No tracheal aspiration. 2. Full recommendations by Speech pathology to follow. ACT 112: Negative or not required by law. Electronically signed by: Daniel Boyer M.D. 08/17/2021 2:[address] 08/19/21 14:32 CT cervical spine wo con CLINICAL HISTORY: recent fall, R sided neck pain; eval Fx TECHNIQUE: Multidetector row helical CT of the cervical spine was performed without administration of intravenous contrast. Coronal and sagittal reformations were obtained. Automated dose lowering techniques and/or adjustment according to patient size were utilized for this exam. Comparison: None available at the time of this dictation. FINDINGS: No acute fractures or subluxations are identified. Degenerative changes are seen in the visualized spine. The alignment is normal. Vascular calcifications are seen most prominently in the vertebral arteries. IMPRESSION: Degenerative changes without evidence of acute bony injury. ACT 112: Negative or not required by law. Electronically signed by: Doc Thomas M.D. 08/19/2021 3:31 PM Hospital Course (1) Fall: Unwitnessed ground level fall without LOC. etiology? B12 level is "normal" but likely deficient given his age. --> B12 deficiency could certainly be contributing to heightened fall risk with proprioceptive deficits, etc. prior strokes could also be contributing to fall risk. Imaging without evidence of stroke or infecitous etiology during admission stay. see scanned reports as above Therapy evals with PT/OT and rec SNF for rehab --> arrangements made for centre care Just underwent EGD 08/[address] Brooks which showed intrinsic mild stenosis at GEJ which was dilated. Large hiatal hernia. Diffuse moderate inflammation characterized by erythema in the stomach. Biopsied and sent for h. pylori testing. Advanced diet with tolerance --> omeprazole switched to protonix given gastritis, added carafate x 1 week outpatient follow up as needed (2) Dysphagia: long history of such video swallow shows no aspiration [facility] saw in consult - EGD as above, stricture with dilation/biopsies taken Eliquis resumed advance as tolerated, easy to chew (3) Atrial fibrillation: rates controlled w/o AV chris agents Eliquis BID (4) Coronary artery disease: -CABG in 2003 -Continue atorvastatin, clopidogrel, rosuvastatin. 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 no issues (10) Depression: Continued duloxetine (11) Hypothyroid: Continued levothyroxine TSH 2.9 in 04/2021 (12) Dyslipidemia: Continued atorvastatin, increased to 80mg daily (13) GERD (gastroesophageal reflux disease): Omeprazole switched to protonix as above at d/c. EGD with gastritis. 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 negative voltaren gel 4 grams QID to neck for pain control tylenol 1gm TID no increased issues (18) B12 deficiency: replace IM 1000mcg daily x5 --> continue daily for total 5 at rehab, then encouraged 1x/weekly followed by PO to maintain adequate levels Total Time Total Time Spent Total Time Spent (In Minutes): 50 Discharge Plan Discharge Items Patient Disposition: Transfer Shelter Fac Reason For Visit: FALL Discharge Diagnosis: Fall, Dysphagia (secondary to stricture/esophagitis) Goals: You have been hospitalized for an urgent problem which required surgery. During your stay at [facility], we have made an effort to correct the problem that brought you to the hospital while keeping you as comfortable as possible. Surgery and medications were used to bring your condition under control and your discharge instructions will include directions for any medications you should take after leaving the hospital. Please make sure to follow the advice of your surgeon regarding follow up with the surgeon and with your primary care provider. Activity: As commented below Activity Comment: advance with therapy as tolerated at rehab Non-emergency contact: Primary Care Provider and Sign Carpenter Call non-emergency contact if: you have any medication questions, your symptoms worsen, your pain is unusual for you and you have a fever Follow-up/Referrals: Matt Comer MD [Primary Care Provider] - Gregory Brooks MD [Physician] - Diet: Carb Consistent or DM2 and Heart Healthy Diet Texture: Easy to Chew Addtl Attending Provider Instructions: You have been hospitalized for a fall. Imaging did not show any kind of stroke, thankfully. Your B12 level was checked and borderline low which can contribute to memory/balance issues and you have been started on B12 supplementation which will be continued at discharge. You should continue IM injections daily while in rehab for the next 4 days, then you can consider weekly dosing for a month followed by oral supplementation to improve your levels. Your blood pressure was elevated and given falls/memory issue and increased risk for stroke, medications were adjusted as follows and your blood pressure has been much improved: * Norvasc (amlodipine) increased to 10mg daily * Lisinopril increased to 40 mg daily You also had issues with swallowing, long standing, and evaluated by GI with an EGD which showed a stricture and this was dilated. You will need to have follow up with them regarding biopsies in the next couple weeks. Your omeprazole has been switched to protonix, and you will have a week of carafate to help with the lining of your esophagitis. Please follow up with your PCP in the next 7-10 days to monitor your progress. Please return to the emergency department with any fevers, chills, chest pain, shortness of breath, increased difficulty swallowing, or for any other symptoms concerning for you. It has been a pleasure being a part of the medical team taking care of you while in the hospital. Take care! Pending Studies at Discharge: No Stand-Alone Forms: [facility] Skilled Items Patient informed of condition?: Yes DNR: Yes Discharge Level of Care: Skilled Communicable Disease: No Discharge Prognosis: Stable Lines: None Urinary Catheter: No Medications and DC Order Prescriptions: New amlodipine [Norvasc] 5 mg Tablet 10 mg PO QAM 30 Days Qty: 60 RF: 0 lisinopril [Zestril] 40 mg Tablet 40 mg PO QAM 30 Days Qty: 30 RF: 0 pantoprazole 40 mg tablet,delayed release (DR/EC) 40 mg PO DAILY 28 Days Qty: 28 RF: 0 Continued atorvastatin 80 mg tablet 80 mg PO HS Qty: 90 RF: 3 finasteride 5 mg tablet 5 mg PO QAM Qty: 90 RF: 3 levothyroxine 50 mcg tablet 50 mcg PO QAM Qty: 90 RF: 3 Eliquis 2.5 mg tablet 2.5 mg PO BID Qty: 180 RF: 3 (DME) OneTouch Ultra Blue Test Strip Strip See Rx Instructions .ROUTE .MEDSUPPLY Qty: 100 RF: 5 (DME) lancets [OneTouch Delica Plus Lancet] 33 gauge misc See Rx Instructions .ROUTE .MEDSUPPLY Qty: 100 RF: 5 duloxetine 60 mg capsule,delayed release(DR/EC) 60 mg PO DAILY Qty: 90 RF: 3 (DME) blood-glucose meter [OneTouch Ultra2 Meter] Misc See Rx Instructions .ROUTE .MEDSUPPLY Qty: 1 RF: 0 Fiber Therapy (m-cell/sugar) 2 gram/19 gram powder 2 g PO DAILY Qty: 454 RF: 0 (DME) pen needle, diabetic [BD Ultra-Fine Mary Carmen Pen Needle] 32 gauge x 5/32" needle See Dose Instructions .ROUTE .MEDSUPPLY Qty: 100 RF: 3 hydrocortisone 2.5 % cream with perineal applicator 1 applic [place] DAILY PRN (Reason: hemorrhoids) Qty: 30 RF: 1 pregabalin 100 mg capsule 100 mg PO TID Qty: 90 RF: 3 carbidopa-levodopa [Sinemet] 25-100 mg tablet 0.5 tab PO TID Qty: 45 RF: 1 magnesium oxide 400 mg magnesium tablet 400 mg PO BID Qty: 60 RF: 5 clopidogrel 75 mg tablet 75 mg PO QAM Qty: 90 RF: 3 docusate sodium 100 mg capsule 100 mg PO BID Qty: 60 RF: 5 triamcinolone acetonide 0.1 % cream 1 applic topical BID Qty: 30 RF: 2 famotidine 20 mg tablet 20 mg PO BID Qty: 60 RF: 11 polyethylene glycol 3350 [Miralax] 17 gram/dose powder 17 g PO DAILY PRN (Reason: Constipation) RF: 0 glycerin Drops 2 drp OPHTHALMIC (EYE) BID RF: 0 diclofenac sodium 1 % gel 4 g TOP QID PRN (Reason: Pain) RF: 0 Novolin 70-30 FlexPen U-100 100 unit/mL (70-30) insulin pen 12 unit SQ BID Qty: 15 RF: 5 Discontinued omeprazole 20 mg capsule,delayed release(DR/EC) 40 mg PO QAM Qty: 180 RF: 3 lisinopril 10 mg tablet 10 mg PO QAM Qty: 45 RF: 0 lisinopril 5 mg tablet 5 mg PO DAILY Qty: 30 RF: 5 Discharge Orders: Discharge Order (Routine); Ordered 08/21/21 Ordered By: Keri Paniagua/Other Patient Handouts: High Blood Sugar (Hyperglycemia), Hypoglycemia (Low Blood Sugar), Managing Type 2 Diabetes Admission Data Admit Date/Time: 08/10/21 16:44 Attending Provider: Demetrius Kat Admit Provider: Damian Vasquez Primary Care Provider: Matt Comer Other Providers: [facility] ; Marielle Trevizo [place] ; Damian Vasquez ; Gregory Brooks Other Interventions: Discharge Summary Assessment (RN) Last Done: 08/21/21 09:59 Supervising Physician Co-Signing Physician Notes Attending Attestation and Discharge Note: Pt seen/examined, chart reviewed in detail, care plan d/w REMBERTO Colon. I agree w/ the yung components of her documentation. 85yo male with a.fib, dementia, CAD, dysphagia, CKD stage 3 - presented after having had a fall at home. PT/OT advised SNF placement. Pt c/o dysphagia throughout the stay - ultimately underwent EGD. s/p dilatation for stricture. Discovered to have B12 deficiency while here with level of 243. Given parenteral B12 supplementation while hospitalized --> PO B12 at discharge. Low B12 could be contributing to thrombocytopenia which, per the EMR, appears chronic. Could also be contributing to balance troubles/ambulatory dysfunction. Discharge exam - gen - NAD neck - no JVD heart - irregular, s1 s2 lungs - cta b/l abd - soft NT ND BS+ ext - no edema Demetrius Kat MD
[2021-08-21] MEDS: INSULIN HUMAN NPH SC SCH (09:11)
[2021-08-21] MEDS: INSULIN ASPART PER UNIT SC SCH (09:16)
== END 2021-08-21 13:34 ==
LOC: ED 11:02 → 2S 11:02 → SUATTDRO 16:44 → 2S 18:37 → SUATTDRO 08-12 12:12 → 3N 08-12 17:30

== ENCOUNTER 2022-03-02 10:44 | Inpatient (IN) ==
[2022-03-02] MEDS ORDERED: OPTIRAY 320 125ml IV ONE (11:21)
--- NOTE | 2022-03-02 11:25 | CT Scan Report ---
HEAD CT NONCONTRAST CT DOSE: HISTORY: Stroke Like Symptoms TECHNIQUE: Multiaxial CT images of the head were performed without the use of intravenous contrast. A utomated exposure control was utilized for this study. A dose lowering technique was utilized adheri ng to the principles of ALARA. Comparison: Head CT 08/10/2021. Sinus CT 02/08/2022. Findings: Fluid levels within the right frontal sinus and bilateral maxillary sinuses most pronounced on the left. The fluid levels appear hyperdense. There is near complete opacification of the left na praneeth cavity due to the previous identified nasal polyp/lesion. There is near-complete opacification of the ethmoid air cells and bilateral mastoid air cells. The calvarium and skull base are intact. Ther e is no mass, hematoma, midline shift, acute infarct. White matter hypodensity is nonspecific but sug gestive of microvascular ischemic change. The ventricles and sulci demonstrate mild age-related invol utional changes. 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 These remain unchanged. Impression: 1. No acute infarct or intracranial hemorrhage. 2. Old infarcts as described above remain unchanged. 3. Acute on chronic paranasal sinusitis with hyperdense secretions which could represent inspissated secretions or blood products. 4. Opacified left nasal cavity have likely corresponding to the patient's known left nasal polyp/lesi on. Follow-up nonemergent ENT consultation recommended. 5. Chronic bilateral mastoid effusions again noted. ACT 112: Negative or not required by law. Electronically signed by: Guy Burdick M.D. 03/02/2022 11:22 AM
[2022-03-02 11:30] LABS: INR 1.1 (0.9-1.1); Partial Thromboplastin Ratio 1.1; Partial Thromboplastin Time 29.9 Seconds (21.0-31.0); Prothrombin Time 11.5 Seconds (9.0-12.0)
[2022-03-02 11:34] LABS: Hematocrit (blood only) 40.2 % (40.1-51.0); Hemoglobin 13.6 g/dl (14.0-18.0); Mean Corpuscular Hemoglobin 30.8 pg (25.0-34.0); Mean Corpuscular Hgb Conc 33.8 g/dL (32.0-36.0); Mean Corpuscular Volume 91.2 fL (80.0-100.0); Mean Platelet Volume 11.6 fL (9.4-12.4); Platelet Count 117 K/uL (130-400); RDW Coefficient of Variation 13.8 % (11.5-14.5); RDW Standard Deviation 45.8 fL (36.4-46.3); Red Blood Count 4.41 M/uL (4.63-6.08); White Blood Count 9.71 K/ul (4.8-10.8)
--- NOTE | 2022-03-02 11:36 | CT Scan Report ---
HEAD & NECK CTA HISTORY: Stroke Like Symptoms TECHNIQUE: Multiaxial CT images of the head were performed following the intravenous administration o f contrast to evaluate the major cerebral vessels. Multiaxial CT images of the neck were also perform ed following the intravenous administration of contrast to evaluate the major cervical vessels. Maxim um intensity projection images were also obtained. A dose lowering technique was utilized adhering to the principles of ALARA. COMPARISON: Head and neck CTA 05/04/2021. FINDINGS: There is no mass, hematoma, midline shift, or acute infarct. Dominant right vertebral artery with unc hanged moderate narrowing of the right proximal V1 segment. Developmentally diminutive left vertebral artery which terminates into the PICA. The bilateral vertebral arteries are patent. Patent basilar a rtery. Unchanged multifocal areas of high-grade stenosis are noted throughout the P1 and P2 segments of the posterior cerebral arteries. Cerebral venous sinuses are patent. There is no abnormal intracra nial enhancement. Blood products within the paranasal sinuses suggesting recent postoperative change. Moderate atherosclerosis of the thoracic aortic arch. Patency of the innominate and imaged subclavian arteries. The common carotid arteries are widely patent. The visualized internal carotid arteries ar e patent. Mild to moderate multifocal luminal narrowing of the middle and anterior cerebral arteries redemonstrated. Unchanged focal area of high-grade stenosis involves the A2 segment of the left anter ior cerebral artery with multifocal areas of high-grade stenosis involving the A2 segment of the righ t anterior cerebral artery again noted. Degenerative changes of the spine. Sternotomy changes. Right paratracheal adenopathy with lymph nodes measuring up to 11 mm, similar to comparison. Lung apices are clear. Unremarkable soft tissues. Medi al deviation of the right vocal cord again noted. IMPRESSION: 1. 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 2. Moderate atherosclerosis of the carotid bulbs without significant stenosis. 3. Moderate stenosis of the proximal V1 segment of the right vertebral artery is unchanged. 4. Blood products within the paranasal sinuses likely due to the recent postoperative change. 5. 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 This remains unchanged. ACT 112: Negative or not required by law. Electronically signed by: Guy Burdick M.D. 03/02/2022 11:33 AM
[2022-03-02 11:41] LABS: Basophils # (auto) 0.01 K/uL (0-0.2); Basophils % (auto) 0.1 %; Immature Granulocytes # (auto) 0.03 K/uL (0.00-0.02); Immature Granulocytes % (auto) 0.3 %; Lymphocytes # (auto) 1.39 K/uL (1.2-3.4); Lymphocytes % (auto) 14.3 %; Monocytes # (auto) 0.86 K/uL (0.24-0.82); Monocytes % (auto) 8.9 %; Neutrophils # (auto) 7.42 K/uL (1.4-6.5); Neutrophils % (auto) 76.4 %; RBC Morphology Unremarkable
[2022-03-02 11:46] LABS: Alanine Aminotransferase 13 U/L (7-52); Albumin Globulin Ratio 1.2 (0.9-2); Albumin Level 3.7 gm/dl (3.4-5.0); Alkaline Phosphatase 54 U/L (34-104); Anion Gap 8 (3-11); Aspartate Aminotransferase 15 U/L (13-39); BUN Creatinine Ratio 22.7 (10-20); Bilirubin,Total 0.9 mg/dl (0.2-1.0); Blood Urea Nitrogen 41 mg/dl (6-23); Calcium 9.2 mg/dl (8.5-10.1); Carbon Dioxide 24 mmol/L (21-32); Chloride 101 mmol/L (98-107); Est GFR (African American) 38.4 ml/min; Est GFR (Non-African American) 33.1 ml/min; Globulin 3.1 gm/dl (2.5-4.0); Glucose 177 mg/dl (70-99(Fasting)); Magnesium 2.3 mg/dl (1.7-2.4); Potassium 5.1 mmol/L (3.5-5.1); Sodium 133 mmol/L (136-145); Total Protein 6.8 gm/dl (6.0-8.3)
[2022-03-02 11:52] LABS: Troponin I High Sensitivity 19.5 pg/ml (0-20)
--- NOTE | 2022-03-02 12:04 | History & Physical Report ---
Date of Service March 02, 2022 Assessment & Plan (1) Stroke: Plan: - RUE, RLE weakness, R sided facial droop, dysarthria this AM; LKW unknown; TPA c/i for several reasons including DOAC use, unknown LKW, PLTs 117. - The patient is on Plavix and Eliquis, both which were held for ENT procedure yesterday, Eliquis reportedly restarted this morning per [facility] documentation. The case was discussed with both ENT on-call provider, as well as on-call neurologist. Plan to restart Plavix today, and pending no hemorrhagic stroke or conversion seen on MRI or CT, can restart anticoagulation, likely with heparin low-dose gtt without bolus. - MRI, routine later this afternoon/tomorrow. - Echo in a.m. - CBC, BMP, HbA1c, PT/INR, lipid panel in a.m. - N.p.o. for now. - PT, OT, ST to evaluate in a.m. - Avoid hypotension, hypoglycemia. - Telemetry for 24 hours, evaluate for episodes of atrial fibrillation. - Neurology consulted, appreciate their recommendations. (2) Status post myringotomy with tube placement of both ears: Plan: - Yesterday with Dr. Ge. No complications. - Plavix to be restarted today, holding Eliquis for now. (3) S/P nasal polypectomy: Plan: - Yesterday with Dr. Ge. - Patient instructed not to blow his nose for 48 hours. Has not been compliant with this, had a nose bleed this AM which was well controlled. - Continue to remind patient not to blow nose for the next 24 hours. (4) NAVEED (acute kidney injury): Plan: - Cr 1.81, baseline 1.2 - 1.4 - Gentle hydration with LRs at 80 cc/hr x 1 L - Repeat MP in Am. - Avoid nephrotoxins and renally dose medications as able. (5) Atrial fibrillation: Plan: - Chronic, remains rate controlled without AV chris block agents. - Eliquis on hold for now d/t ENT surgery yesterday 03/01. (6) Coronary artery disease: Plan: - Stable, without acute chest pain today. hs trop 19.5. - Continue statin and Plavix, holding lisinopril due to NAVEED. (7) Stage III chronic kidney disease: Plan: - Treat NAVEED as above. - Monitor renal function on daily labs. (8) DM type 2 (diabetes mellitus, type 2): Plan: - Hold Novolog, place on Lantus 11 units BID with accucheks ACHS + SSI with carb coverage. - A1c in AM. (9) HTN (hypertension): Plan: - Lisinopril held d/t NAVEED. - Would want to allow for a degree of permissive HTN in first 24 hours of CVA, however patient presented normotensive and has remained so thus far. Would treat HTN for SBP > 180. (10) Hypothyroid: Plan: - Continue levothyroxine 50 mcg daily. (11) Hyperlipidemia: Plan: - Continue statin. (12) GERD (gastroesophageal reflux disease): Plan: - Continue Pepcid and Protonix. 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 (14) BPH (benign prostatic hyperplasia): Plan: - Continue finasteride. (15) Thrombocytopenia: Plan: - Documented history of on last admission. - PLTs 117 today, about baseline. (16) Depression: Plan: - Continue Cymbalta for depression/neuropathy. (17) B12 deficiency: Plan: - Continue daily supplementation. - Add on B12 level to AM labs. (18) Dysphagia: Plan: - Known issue due to GEJ stenosis with dilation last performed in July. - When cleared to eat, would order easy to chew diet as it seems this is what patient is ordered at [facility]. Plan - Admit to PCU. - SCDs for VTE ppx - DNR/DNI. History of Present Illness Chief Complaint: Right-sided facial droop, weakness Primary Care Provider: [facility] Sahil Martinez is an 86 y/o male with past medical history significant for previous strokes, A. fib on Eliquis, CAD s/p CABG x4 vessels, DM2, CKD, hypertension, hyperlipidemia, GERD, hypothyroidism, Parkinson's, BPH, depression who presents today from [place] care with concerns for stroke. Patient had b/l myringotomy and tube insertion + nasal polypectomy yesterday, 03/01, procedure went well without complications, instructed to hold Plavix and Eliquis after. He felt somewhat drowsy last evening and had a little SOB, and a minor nose bleed last evening/this morning from blowing his nose, otherwise without complaints. Staff noticed this morning that he had weakness on the right side, to his right arm and right leg with no dye house helper strength in right hand as well as a right sided facial droop. Last known well unknown. Upon arrival, patient's vital signs within normal limits, 90% on room air. Labs significant for Hgb 13.6, not far from baseline. Sodium a bit low at 133, creatinine slightly bumped at 1.81, baseline 1.21.4. Glucose elevated at 183. hs trop 19.5. COVID-negative. CT of the head without evidence for acute infarct or intracranial hemorrhage; infarct seen, unchanged from previous imaging, acute on chronic paraspinal sinusitis with hyperdense secretions, likely blood from recent surgery. Chronic B/L mastoid effusions noted. Head and neck CTA with unchanged high-grade intracranial stenoses, atherosclerotic disease of carotid bulbs without significant stenosis, moderate stenosis proximal V1 segment of right vertebral artery, again blood products seen in paranasal sinuses due to postoperative state. Unchanged medial deviation of the right vocal cord. Patient is outside the window for tPA, has had previous strokes, currently with Plavix and Eliquis being held due to ENT surgery yesterday. He will be admitted for further stroke work-up, to include MRI or repeat CT, echocardiogram, and labs in the a.m. Allergies Allergy/AdvReac Type Severity Reaction Status Date / Time hydrocodone AdvReac Mild Dizziness, Verified 03/01/22 05:55 [From Panlor Nausea (hydrocodone-acetamin)] oxycodone AdvReac Mild N/V Verified 03/01/22 05:55 tramadol AdvReac Mild Confusion Verified 03/01/22 05:55 Home Medications Medication Instructions Recorded Confirmed Type apixaban 2.5 mg tablet (Eliquis) 2.5 mg PO BID #180 tabs 08/21/20 03/01/22 Rx atorvastatin 80 mg tablet 80 mg PO HS #90 tabs 08/21/20 03/02/22 Rx finasteride 5 mg tablet 5 mg PO QAM #90 tabs 08/21/20 03/01/22 Rx levothyroxine 50 mcg tablet 50 mcg PO QAM #90 tabs 08/21/20 03/01/22 Rx triamcinolone acetonide 0.1 % 1 applic topical BID #30 grams 10/02/20 03/01/22 Rx topical cream glycerin 2 drp ophthalmic (eye) BID 10/17/20 03/01/22 History blood sugar diagnostic (OneTouch #100 ea 10/18/20 02/22/22 Rx Ultra Blue Test Strip) lancets 33 gauge (OneTouch Delica #100 ea 10/18/20 02/22/22 Rx Plus Lancet) blood-glucose meter (OneTouch #1 ea 10/31/20 02/22/22 Rx Ultra2 Meter) methylcellulose (with sugar) 2 2 g PO DAILY #454 grams 01/19/21 03/01/22 Rx gram/19 gram oral powder (Fiber Therapy (methylcellulose-sugar)) pen needle, diabetic 32 gauge x #100 ea 02/15/21 02/22/22 Rx 5/32" (BD Ultra-Fine Mary Carmen Pen Needle) famotidine 20 mg tablet 20 mg PO BID #60 tabs 03/28/21 03/01/22 Rx docusate sodium 100 mg capsule 100 mg PO BID #60 caps 04/03/21 03/01/22 Rx hydrocortisone 2.5 % topical cream 1 applic AL DAILY PRN hemorrhoids 04/09/21 03/01/22 Rx with perineal applicator #30 grams pregabalin 100 mg capsule 100 mg PO TID #90 caps 04/19/21 03/01/22 Rx diclofenac sodium 1 % topical gel 4 g topical QID PRN Pain 05/04/21 03/01/22 History carbidopa 25 mg-levodopa 100 mg 0.5 tab PO TID #45 tabs 05/21/21 03/01/22 Rx tablet (Sinemet) magnesium oxide 400 mg PO BID #60 tabs 06/04/21 03/01/22 Rx clopidogrel 75 mg tablet 75 mg PO QAM #90 tabs 06/11/21 03/01/22 Rx acetaminophen 325 mg tablet 650 mg PO QID PRN Pain 02/04/22 03/01/22 History cyanocobalamin (vitamin B-12) 1,000 mcg PO DAILY 02/04/22 03/01/22 History 1,000 mcg tablet duloxetine 60 mg capsule,delayed 60 mg PO QAM 02/04/22 03/01/22 History release furosemide 20 mg tablet 40 mg PO 3XWK 02/04/22 03/01/22 History insulin NPH-regular 70-30 U-100 30 unit subcut BID 02/04/22 03/01/22 History insulin 100 unit/mL subcutaneous pen (Novolin 70-30 FlexPen U-100 Insulin) insulin aspart U-100 100 unit/mL 1 sliding scale dose subcut 02/04/22 03/01/22 History subcutaneous solution (Novolog USEASDIRECTD U-100 Insulin aspart) lisinopril 40 mg tablet 40 mg PO DAILY 02/04/22 03/01/22 History magnesium hydroxide 800 mg/5 mL 7.75 mg PO DIRECTED PRN 02/04/22 03/01/22 History oral suspension Constipation ondansetron HCl 4 mg tablet 4 mg PO Q8H PRN Nausea 02/04/22 03/01/22 History pantoprazole 40 mg tablet,delayed 40 mg PO DAILY 02/04/22 03/01/22 History release semaglutide 0.25 mg or 0.5 mg (2 0.5 mg subcut WK 02/04/22 03/01/22 History mg/1.5 mL) subcutaneous pen injector (Ozempic) sodium phosphates 19 gram-7 118 ml AL DAILY PRN Constipation 02/04/22 03/01/22 History gram/118 mL enema (Enema) ofloxacin 0.3 % ear drops 5 drp otic (ear) BID #5 mL 03/01/22 Rx tramadol 50 mg tablet 50 mg PO Q8H PRN Pain #20 tabs 03/01/22 Rx Past Med/Surg History Medical History Abnormal tympanic membrane R/L Atrial fibrillation Paroxysmal BPH (benign prostatic hyperplasia) CKD (chronic kidney disease) Coronary artery disease s/p CABG (2010) Depression DM type 2 (diabetes mellitus, type 2) GERD (gastroesophageal reflux disease) Hearing deficit HTN (hypertension) Hyperlipidemia Hypothyroid Kidney stones LVH (left ventricular hypertrophy) Focal thickening of the basal septum with no evidence of LVOT obstruction, Mild asymmetric LVH per 12/2018 echo Major depressive disorder Memory impairment Myocardial Infarction 2004 Follows with [facility]/Dr. 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 Yates Transient hypotension Upper respiratory infection Vocal cord paralysis Surgical History History of bilateral cataract extraction History of esophagogastroduodenoscopy (EGD) History of kidney surgery History of lithotripsy x2 History of lumbar laminectomy History of tooth extraction Hx of CABG 2003 ([facility] [place]) Family History Father Diabetes Coronary heart disease Mother Diabetes Coronary heart disease Myocardial infarction Sister Breast cancer Brother Coronary heart disease Son Family history of diabetes mellitus Family/Other Family history of diabetes mellitus grandson Other No family history of adverse response to anesthesia Denies family history of Ovarian cancer Prostate cancer Colorectal cancer Social History Smoking Status: Unknown if ever smoked Second Hand Exposure: No; Hx Alcohol Use: No Hx Substance Use: No Preferred Language: Romansh Communication Ability: Impaired Visual Impairment: No Limitations Hearing Ability: Use of Hearing Aid 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 current occupational status: retired current occupation: used to work in [employer] How many Children do You have: 1 Feels Safe at Home: Yes Childhood Exposure to Second-Hand Smoke: Yes caffeine: Yes Dental Care, Regularly: No Physical Activity Frequency: Does not Exercise Seatbelt Use: always Sunscreen Use: No Assistive Devices: Denture - Upper, Denture - Lower and Walker Review of Systems Review of Systems: Constitutional: No fever/chills, weakness, fatigue, myalgias, anorexia, night sweats Eyes: No diplopia, no worsening or blurred vision ENT: Nasal congestion, with nosebleed this a.m., 1 day s/p nasal/sinus surgery; patient incredibly [place] without hearing aids, no change; with chronic dysphagia due to GE J stenosis, no change in baseline swallowing Respiratory: No cough, sputum, dyspnea at rest or on exertion Cardiovascular: No chest pain, tightness or palpitations Abdomen: No pain, nausea, vomiting, diarrhea or constipation : Denies dysuria, hematuria, increased urgency/frequency, urinary retention Musculoskeletal: No joint pain, calf pain, swelling Neurologic: Right arm, right leg weakness since waking up this morning; no numbness/tingling, or balance problems Psychiatric: No anxiety or depression Skin: No rash or itch Physical Exam Physical Exam: General: awake, alert, no apparent distress Head: Normocephalic, atraumatic ENT: PERRL, EOMI, no pharyngeal exudate, mucous membranes moist Chest: Clear to auscultation, on room air, no adventitious breath sounds Cardiac: Irregularly irregular rhythm consistent with A. fib, normal rate; no murmur, no JVD, normal peripheral pulses, good capillary refill Abdominal: NABS x 4 quadrants, soft, nontender to palpation, no rebound, gu arding or tenderness Extremities: Normal inspection, no peripheral edema or erythema, calfs nontender to palpation Psych: Normal mood and affect Neuro: AAOx3, new onset dysarthria, right-sided facial droop, 0/5 RUE strength, 0/5 right hand dye house helper strength, 1/5 RLE strength; bilateral sensation intact; left side strength and coordination intact, Skin: no rash or erythema Results & Data Results & Data ([facility]) Vital Signs (Past 12 Hours) Vital Signs Temp Pulse Resp BP Pulse Ox O2 Del Method 03/02/22 11:48 95 Room Air 03/02/22 11:05 36.9 C 89 18 126/72 90 Room Air Laboratory Results Abnormal lab results 03/02/22 03/02/22 03/02/22 Range/Units 11:04 11:04 11:25 RBC 4.41 L (4.63-6.08) M/uL Hgb 13.6 L (14.0-18.0) g/dl Plt Count 117 L (130-400) K/uL Neut # (Auto) 7.42 H (1.4-6.5) K/uL [place] # (Auto) 0.86 H (0.24-0.82) K/uL Immature Gran # (Auto) 0.03 H (0.00-0.02) K/uL Sodium 133 L (136-145) mmol/L BUN 41 H (6-23) mg/dl Creatinine 1.81 H (0.6-1.4) mg/dl BUN/Creatinine Ratio 22.7 H (10-20) Glucose 177 H (70-99(Fasting)) mg/dl POC Glucose 183 H (70-99) mg/dl Diagnostic Findings Head CT 03/02/22 11:[address] DOSE: HISTORY: Stroke Like Symptoms TECHNIQUE: Multiaxial CT images of the head were performed without the use of intravenous contrast. Automated exposure control was utilized for this study. A dose lowering technique was utilized adhering to the principles of ALARA. Comparison: Head CT 08/10/2021. Sinus CT 02/08/2022. Findings: Fluid levels within the right frontal sinus and bilateral maxillary sinuses most pronounced on the left. The fluid levels appear hyperdense. There is near complete opacification of the left nasal cavity due to the previous identified nasal polyp/lesion. There is near-complete opacification of the ethmoid air cells and bilateral mastoid air cells. The calvarium and skull base are intact. There is no mass, hematoma, midline shift, acute infarct. White matter hypodensity is nonspecific but suggestive of microvascular ischemic change. The ventricles and sulci demonstrate mild age-related involutional changes. 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 These remain unchanged. Impression: 1. No acute infarct or intracranial hemorrhage. 2. Old infarcts as described above remain unchanged. 3. Acute on chronic paranasal sinusitis with hyperdense secretions which could represent inspissated secretions or blood products. 4. Opacified left nasal cavity have likely corresponding to the patient's known left nasal polyp/lesion. Follow-up nonemergent ENT consultation recommended. 5. Chronic bilateral mastoid effusions again noted. ACT 112: Negative or not required by law. Electronically signed by: Guy Burdick M.D. 03/02/2022 11:22 AM Head CTA 03/02/22 11:08 HEAD & NECK CTA HISTORY: Stroke Like Symptoms TECHNIQUE: Multiaxial CT images of the head were performed following the intravenous administration of contrast to evaluate the major cerebral vessels. Multiaxial CT images of the neck were also performed following the intravenous administration of contrast to evaluate the major cervical vessels. Maximum intensity projection images were also obtained. A dose lowering technique was utilized adhering to the principles of ALARA. COMPARISON: Head and neck CTA 05/04/2021. FINDINGS: There is no mass, hematoma, midline shift, or acute infarct. Dominant right vertebral artery with unchanged moderate narrowing of the right proximal V1 segment. Developmentally diminutive left vertebral artery which terminates into the PICA. The bilateral vertebral arteries are patent. Patent basilar artery. Unchanged multifocal areas of high-grade stenosis are noted throughout the P1 and P2 segments of the posterior cerebral arteries. Cerebral venous sinuses are patent. There is no abnormal intracranial enhancement. Blood products within the paranasal sinuses suggesting recent postoperative change. Moderate atherosclerosis of the thoracic aortic arch. Patency of the innominate and imaged subclavian arteries. The common carotid arteries are widely patent. The visualized internal carotid arteries are patent. Mild to moderate multifocal luminal narrowing of the middle and anterior cerebral arteries redemonstrated. Unchanged focal area of high-grade stenosis involves the A2 segment of the left anterior cerebral artery with multifocal areas of high-grade stenosis involving the A2 segment of the right anterior cerebral artery again noted. Degenerative changes of the spine. Sternotomy changes. Right paratracheal adenopathy with lymph nodes measuring up to 11 mm, similar to comparison. Lung apices are clear. Unremarkable soft tissues. Medial deviation of the right vocal cord again noted. IMPRESSION: 1. 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 2. Moderate atherosclerosis of the carotid bulbs without significant stenosis. 3. Moderate stenosis of the proximal V1 segment of the right vertebral artery is unchanged. 4. Blood products within the paranasal sinuses likely due to the recent postoperative change. 5. 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 This remains unchanged. ACT 112: Negative or not required by law. Electronically signed by: Guy Burdick M.D. 03/02/2022 11:33 AM Neck CTA 03/02/22 11:08 HEAD & NECK CTA HISTORY: Stroke Like Symptoms TECHNIQUE: Multiaxial CT images of the head were performed following the intravenous administration of contrast to evaluate the major cerebral vessels. Multiaxial CT images of the neck were also performed following the intravenous administration of contrast to evaluate the major cervical vessels. Maximum intensity projection images were also obtained. A dose lowering technique was utilized adhering to the principles of ALARA. COMPARISON: Head and neck CTA 05/04/2021. FINDINGS: There is no mass, hematoma, midline shift, or acute infarct. Dominant right vertebral artery with unchanged moderate narrowing of the right proximal V1 segment. Developmentally diminutive left vertebral artery which terminates into the PICA. The bilateral vertebral arteries are patent. Patent basilar artery. Unchanged multifocal areas of high-grade stenosis are noted throughout the P1 and P2 segments of the posterior cerebral arteries. Cerebral venous sinuses are patent. There is no abnormal intracranial enhancement. Blood products within the paranasal sinuses suggesting recent postoperative change. Moderate atherosclerosis of the thoracic aortic arch. Patency of the innominate and imaged subclavian arteries. The common carotid arteries are widely patent. The visualized internal carotid arteries are patent. Mild to moderate multifocal luminal narrowing of the middle and anterior cerebral arteries redemonstrated. Unchanged focal area of high-grade stenosis involves the A2 segment of the left anterior cerebral artery with multifocal areas of high-grade stenosis involving the A2 segment of the right anterior cerebral artery again noted. Degenerative changes of the spine. Sternotomy changes. Right paratracheal adenopathy with lymph nodes measuring up to 11 mm, similar to comparison. Lung apices are clear. Unremarkable soft tissues. Medial deviation of the right vocal cord again noted. IMPRESSION: 1. 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 2. Moderate atherosclerosis of the carotid bulbs without significant stenosis. 3. Moderate stenosis of the proximal V1 segment of the right vertebral artery is unchanged. 4. Blood products within the paranasal sinuses likely due to the recent postoperative change. 5. 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 This remains unchanged. ACT 112: Negative or not required by law. Electronically signed by: Guy Burdick M.D. 03/02/2022 11:33 AM Orbit X-Ray 03/02/22 12:58 ORBIT RADIOGRAPHS 3 VIEWS HISTORY: pre-MRI screening. COMPARISON: Orbit radiograph 01/12/2019. FINDINGS: There are no radiopaque foreign bodies identified within the orbits. Stable metallic suture within the right lateral orbital wall. There is a punctate metallic density within the left upper lip which is also unchanged. IMPRESSION: 1. No radiopaque foreign bodies identified within the orbits. 2. Stable metallic suture within the right lateral orbital wall. ACT 112: Negative or not required by law. Electronically signed by: Guy Burdick M.D. 03/02/2022 1:42 PM Chest X-Ray 03/02/22 13:17 XR chest 1V portable HISTORY: Prior MRI screening for foreign body. COMPARISON: Chest 08/10/2021. FINDINGS: The heart is mildly enlarged. There is mild pulmonary vascular congestion without overt edema. No pneumothorax. No pleural effusions. There are poststernotomy changes. No pacemaker is identified. IMPRESSION: 1. Cardiomegaly with mild pulmonary vascular congestion. 2. No pacemaker is identified. ACT 112: Negative or not required by law. Electronically signed by: Guy Burdick M.D. 03/02/2022 1:43 PM ECG Additional Comments: Atrial fibrillation Abnormal ECG When compared with ECG of 10-AUG-2021 11:43, No significant change was found. Code Status & VTE Plan Code Status DNR/DNI. Supervising Physician Co-Signing Physician Notes Patient seen and examined, chart reviewed, case discussed with Alta Wadsworth PA-C and I agree with the assessment and plan as above except as otherwise noted Labs and images reviewed. At bedside assessment patient continues with left- sided facial droop, right sided upper extremity weakness including shoulder flexion/extension, elbow flexion/extension, dye house helper strength weakness, and dysarthria. No lower extremity weakness. Pupils equal and reactive. Sahil is an 86-year-old male with a past medical history of CAD s/p NSTEMI s/p CABG x4, CVA, DJD, mixed hearing loss, diabetes with neuropathy, ischemic optic neuropathy, paroxysmal atrial fibrillation, BPH, cholesteatoma, esophageal stricture, CKD 3, GERD, hypertension, hyperlipidemia, hypothyroidism who underwent bilateral myringotomy and tube insertion with bilateral frontal, total ethmoid, and maxillary sinus antrostomy on 03/01/2022 who presents on 03/02/2022 as a stroke alert. Stroke alert Presented with dysarthria, facial droop, extremity weakness as noted. Unclear last known normal, reportedly normal prior to bed yesterday. Thrombolytics contraindicated in the setting of recent surgery with bleeding, and unknown last normal History of brainstem stroke 12/2018, MRI limited by metallic foreign body which was subsequently found to be stitch fragment and has had MRI since without issue. CT head: 1. No acute infarct or intracranial hemorrhage.2. Old infarcts as described above remain unchanged.3. Acute on chronic paranasal sinusitis with hyperdense secretions which could represent inspissated secretions or blood products.4. Opacified left nasal cavity have likely corresponding to the patient's known left nasal polyp/lesion. Follow-up nonemergent ENT consultation recommended.5. Chronic bilateral mastoid effusions again noted. CTA head/neck: 1. Atherosclerotic vascular disease with multifocal high-grade intracranial stenoses redemonstrated, stable from the prior examination.2. Moderate atherosclerosis of the carotid bulbs without significant stenosis.3. Moderate stenosis of the proximal V1 segment of the right vertebral artery is unchanged.4. Blood products within the paranasal sinuses likely due to the recent postoperative change. 5. 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 This remains unchanged. - NEW R facial droop and expressive aphasia, persistent deficit on exam MRI pending Glucose 183 Troponin normal, echo pending No transaminitis Creatinine baseline appears 1.351.7 on review Admitting creatinine 1.81 COVID neg No leukocytosis, hemoglobin 13.6 - Patient had Plavix and apixaban held perioperatively. Did discuss with on- call ENT, while patient is at risk for recurrent sinus bleeding, 24 hours is generally okay for hemostasis and agree with restarting antiplatelet today for risk/benefits of bleeding versus stroke prevention. - Continue Plavix 75 mg daily. Hold anticoagulation until MRI (or 24hr CT if unable to be done) complete. If no large territory infarct/signs of hemorrhagic conversion will restart anticoag with low dose no bolus heparin gtt and follow clinically for high risk of bleeding. - Head of bed up at least 30 degrees at all times Hx CAD s/p NSTEMI s/p CABG x4 (OAKLEY to LAD, SVG to OM1OM2, SVG to PDA) 05/2011 -Continue atorvastatin 80 mg daily Continue Plavix 75 mg daily. Lisinopril 40 mg held for borderline NAVEED, patient normotensive Lasix 3 times weekly Troponin wnl Baseline EKG 02/22/2022: A. fib EKG on admission: Rate 74, A. fib. No acute ST segment changes/territorial ischemic changes, similar to EKG on 02/15 Echo 12/2018: Mild asymmetric LVH. LV SF normal, 55-60% EF. Focal thickening of basal septum with no LVOT bstruction History of TM abnormality, cholesteatoma bilateral, recent myringotomy and sinus surgery bilateral myringotomy and tube insertion with bilateral frontal, total ethmoid, and maxillary sinus antrostomy on 03/01/2022 ENT follow-up for CT changes above, no acute intervention at this time NAVEED Creatinine baseline around 1.351.7, on admission 1.81 Fluids as above, lisinopril held, trend BMP Suspect prerenal in the setting of poor intake and stroke with some postsurgical bleeding. Hemoglobin 13.6 A. fib Rate controlled Continue apixaban 2.5 mg p.o. twice daily dosing (dose reduced for age and baseline creatinine up to 1.7) Beta-baldemar therapy? Type II DM On insulin [employer]ER, Novolin 70/30 30 units twice daily plus aspart Insulin total daily dose ~60U Hold home semaglutide - Lantus/SSI as above based on 60u TDD, comparable to weight based calcs Memory difficulty, poor coordination Multifactorial with history of stroke as noted Has seen neurology, recommended continue carbidopa/levodopa Hypertension Lisinopril as noted, normotensive on admission DJD Continue Tylenol as needed Depression Continue duloxetine 60 mg p.o. every morning Hypothyroidism TSH pending Continue Synthroid 50 mcg daily History of esophageal stricture Status post dilation, last follow-up 08/2021 Continue PPI PG Care Time/CCT Total # of Minutes Spent Total Time Spent with Patient: Total time spent is greater than 50% in coordination of care (as documented) at patient's floor/unit and/or counseling patient: Coding Level of Care Code 86786 Initial Inpt Care Lvl 3 Diagnoses Stroke I63.9 Status post myringotomy with tube placement of both ears Z96.22 S/P nasal polypectomy Z98.890 NAVEED (acute kidney injury) N17.9 Atrial fibrillation I48.21 Atrial fibrillation type: permanent Coronary artery disease I25.10 Stage III chronic kidney disease N18.3 DM type 2 (diabetes mellitus, type 2) E11.9; Z79.4 Diabetes mellitus complication status: without complication Diabetes mellitus long term care administrator insulin use: with long term care administrator use HTN (hypertension) I10 Hypothyroid E03.9 Hypothyroidism type: acquired Hyperlipidemia E78.2 Hyperlipidemia type: mixed hyperlipidemia GERD (gastroesophageal reflux disease) K21.9 Esophagitis presence: esophagitis presence not specified Memory impairment R41.3 BPH (benign prostatic hyperplasia) N40.0 Thrombocytopenia D69.6 Depression F32.9 B12 deficiency E53.8 Dysphagia R13.10 (1) DM type 2 (diabetes mellitus, type 2) Diabetes mellitus complication status: without complication Diabetes mellitus long term care administrator insulin use: with long term care administrator use Qualified Code(s): E11.9 - Type 2 diabetes mellitus without complications; Z79.4 - intermediate (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
[2022-03-02] MEDS ORDERED: SODIUM CHLORIDE 0.9% 1000ML 1,000 ML IV SCH (12:15)
[2022-03-02] MEDS ORDERED: CLOPIDOGREL BISULFATE 75 MG TAB PO ONE (13:00)
--- NOTE | 2022-03-02 13:44 | XRay Report ---
ORBIT RADIOGRAPHS 3 VIEWS HISTORY: pre-MRI screening. COMPARISON: Orbit radiograph 01/12/2019. FINDINGS: There are no radiopaque foreign bodies identified within the orbits. Stable metallic suture within the right lateral orbital wall. There is a punctate metallic density within the left upper li p which is also unchanged. IMPRESSION: 1. No radiopaque foreign bodies identified within the orbits. 2. Stable metallic suture within the right lateral orbital wall. ACT 112: Negative or not required by law. Electronically signed by: Guy Burdick M.D. 03/02/2022 1:42 PM
--- NOTE | 2022-03-02 13:44 | XRay Report ---
XR chest 1V portable HISTORY: Prior MRI screening for foreign body. COMPARISON: Chest 08/10/2021. FINDINGS: The heart is mildly enlarged. There is mild pulmonary vascular congestion without overt fermin ma. No pneumothorax. No pleural effusions. There are poststernotomy changes. No pacemaker is identifi ed. IMPRESSION: 1. Cardiomegaly with mild pulmonary vascular congestion. 2. No pacemaker is identified. ACT 112: Negative or not required by law. Electronically signed by: Guy Burdick M.D. 03/02/2022 1:43 PM
--- NOTE | 2022-03-02 13:47 | XRay Report ---
KUB pre MRI CLINICAL HISTORY: Pre-MRI KUB. COMPARISON STUDY: None. FINDINGS: Contrast within the urinary system from the prior CT examination. No evidence for bowel obs truction. Old epicardial pacemaker leads are noted. Prior cholecystectomy. There are poststernotomy c hanges. There are 2 adjacent radiopaque foreign bodies overlying the left iliac crest measuring 1.3 c m. IMPRESSION: 1. There are 2 radiopaque foreign bodies overlying the left iliac crest measuring 1.3 cm. These are i ndeterminate and could be external to the patient. 2. Old epicardial pacemaker leads are noted. ACT 112: Negative or not required by law. Electronically signed by: Guy Burdick M.D. 03/02/2022 1:46 PM
--- NOTE | 2022-03-02 14:34 | Magnetic Resonance Report ---
Brain MRI WITHOUT CONTRAST HISTORY: Confusion. Left-sided weakness. left sided weakness, CVA TECHNIQUE: Multiplanar multisequence MRI of the brain was performed without the use of contrast. COMPARISON STUDY: Head CT 03/02/2022. FINDINGS: There is a 12 mm focus of restricted diffusion within the left basal ganglia/posterior limb of the left internal capsule consistent with an acute infarct. The midline structures are intact. Th e there is no intracranial hemorrhage or midline shift. No intracranial mass identified. Focal area o f encephalomalacia within the right anterior temporal lobe remains unchanged. The major vascular flow -voids at the skull base are well-maintained. Atrophy and microvascular ischemic changes are noted. T here is an old left thalamic infarct. Evidence for prior bilateral lens replacement. Fluid levels/hem orrhage noted within the paranasal sinuses. This likely corresponds to the recent sinus surgery. Ther e are bilateral mastoid effusions which appear to be chronic. IMPRESSION: 1. A 12 mm acute infarct within the left basal ganglia/posterior limb of the left internal capsule. 2. Atrophy and microvascular ischemic changes. 3. Fluid levels/hemorrhage within the paranasal sinuses likely representing the patient's recent sinu s surgery ACT 112: Negative or not required by law. Electronically signed by: Guy Burdick M.D. 03/02/2022 2:32 PM
[2022-03-02] MEDS ORDERED: LACTATED RINGER'S 1,000 ML IV SCH (14:40)
[2022-03-02] MEDS ORDERED: ACETAMINOPHEN 325 MG TAB PO PRN (14:40)
[2022-03-02] MEDS ORDERED: ONDANSETRON INJ 2 MG/ML 2 ML VIAL IV PRN (14:40)
[2022-03-02] MEDS ORDERED: HYDROCORTISONE HC 2.5% CRM 30GM TUBE EXT PRN (14:40)
[2022-03-02] MEDS ORDERED: traMADol HCL 50 MG TABLET PO PRN (14:40)
[2022-03-02] MEDS ORDERED: PHARMACIST DISCHARGE MED REC CONSULT PRN (14:40)
[2022-03-02] MEDS ORDERED: POLYETHYLENE (MIRALAX) 17 GM PACK PO PRN (14:40)
[2022-03-02] MEDS ORDERED: SOD PHOSPHATE/SOD BIPHOSPHATE ENEMA 132 ML BTL PR PRN (14:40)
[2022-03-02] MEDS ORDERED: MAGNESIUM HYDROXIDE PO PRN (14:40)
[2022-03-02] MEDS: CARBIDOPA/LEVODOPA 25/100MG TAB PO SCH ×2 (15:40→19:26)
[2022-03-02] MEDS: PREGABALIN 100 MG CAP PO SCH ×2 (15:41→19:27)
[2022-03-02] MEDS ORDERED: GLUCOSE 40% GEL 15 GM TUBE PO PRN (16:38)
[2022-03-02] MEDS ORDERED: DEXTROSE 50% 50 ML SYRINGE IV PRN (16:38)
[2022-03-02] MEDS ORDERED: CARBOHYDRATES FOR HYPOGLYCEMIA PO PRN (16:38)
[2022-03-02] MEDS ORDERED: GLUCAGON FOR INJ 1 MG VIAL SQ PRN (16:38)
[2022-03-02] MEDS ORDERED: GLUCOSE 10 TAB/TUBE PO PRN (16:38)
[2022-03-02] MEDS: Patient's HEIGHT &/or WEIGHT Needed SCH ×3 (17:12→19:28)
[2022-03-02] MEDS: DOCUSATE SODIUM 100 MG CAP PO SCH (19:26)
[2022-03-02] MEDS: ATORVASTATIN 40 MG TAB PO SCH (19:26)
[2022-03-02] MEDS: MAGNESIUM OXIDE 400 MG TAB PO SCH (19:27)
[2022-03-02] MEDS: INSULIN ASPART PER UNIT SC SCH (20:59)
[2022-03-02] MEDS ORDERED: FAMOTIDINE 20 MG TAB PO SCH (21:00)
[2022-03-02] MEDS ORDERED: LANTUS PER UNIT CHARGE SQ SCH (21:00)
--- NOTE | 2022-03-02 21:23 | Neurology Consultation ---
Date of Consultation March 02, 2022 Assessment & Plan (1) Stroke: Plan Acute ischemic infarct within the left basal ganglia/posterior limb of the left internal capsule presenting with a right hemiparesis, face and arm greater than leg, and probable thalamic aphasia. Patient does have dysarthria at baseline due to vocal cord paralysis. He also has hearing loss. Patient's stroke occurs in the context of holding his Eliquis and clopidogrel for sinus surgery. He has a history of atrial fibrillation and coronary artery disease. Additional stroke risk factors include type 2 diabetes mellitus, hypertension, and hyperlipidemia. Timing of symptom onset unknown, he was not a candidate for thrombolytic therapy. Patient's clopidogrel has been restarted. Atorvastatin has been continued, a repeat lipid panel is ordered for tomorrow morning. Echocardiogram to be completed tomorrow. Plan is to restart anticoagulation. Follow-up with results of echocardiogram. Agree with restarting anticoagulation. Given that the observed stroke is small, would not be unreasonable to restart patient's apixaban. However, could also consider bridging with a heparin drip, no bolus, monitor for stability for 24 hours, prior to resuming patient's apixaban. As above, patient's clopidogrel has already been restarted. I agree with this decision. Continue medical management of hypertension, acute systolic blood pressure goal, 140 to 160 mmHg. 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 He may continue with this medication at the current dosage. However, it is unclear if this medication is providing any significant benefit. He will need consultations with PT/OT/speech therapy. History of Present Illness Reason for Consultation: stroke Requesting Physician: Alta Wadsworth PA-C Attending Physician: Pancho Feliciano MD History of Present Illness The patient is an 86-year-old male who presented to the [facility] earlier today, from [facility], with concern for stroke. Staff had noted right-sided weakness, face arm and leg, exact onset unknown. History notable for atrial fibrillation on Eliquis, coronary artery disease status post CABG x4, type 2 diabetes mellitus, hypertension, and hyperlipidemia. His Plavix and Eliquis were held for a nasal polypectomy that was completed yesterday. Given onset of symptoms unknown, thrombolytics could not be administered. CT angiography of the head and neck revealed multifocal high-grade intracranial stenoses, unchanged compared with prior examination, moderate atherosclerosis of the carotid bulbs without significant stenosis, and moderate stenosis of the proximal V1 segment of the right vertebral artery, also unchanged. Brain MRI did reveal 12 mm acute infarct within the left basal ganglia/posterior limb of t he left internal capsule as well as atrophy and chronic microvascular ischemic disease. Patient has been modestly hypertensive. His clopidogrel was restarted. Atorvastatin has been continued. The patient continues to exhibit a significant expressive aphasia and right hemiparesis, right upper extremity flaccid. He is unable to provide any specific details regarding his history of present illness due to his aphasia. His history is also notable for hearing loss, cholesteatoma of both ears, vocal cord paralysis. I had evaluated this patient in neurological consultation during a hospitalization, on September 15, 2020 for altered mental status and speech difficulty. He was significantly hypertensive at that time. A brain MRI was negative for acute or subacute infarct, however. I did note his significant dysarthria at that time due to vocal cord paralysis. He was also noted to have a mild right hemiparesis which was felt to be chronic at that time as well. Allergies Allergy/AdvReac Type Severity Reaction Status Date / Time hydrocodone AdvReac Mild Dizziness, Verified 03/01/22 05:55 [From Panlor Nausea (hydrocodone-acetamin)] oxycodone AdvReac Mild N/V Verified 03/01/22 05:55 tramadol AdvReac Mild Confusion Verified 03/01/22 05:55 Home Medications Medication Instructions Recorded Confirmed Type apixaban 2.5 mg tablet (Eliquis) 2.5 mg PO BID #180 tabs 08/21/20 03/02/22 Rx atorvastatin 80 mg tablet 80 mg PO HS #90 tabs 08/21/20 03/02/22 Rx finasteride 5 mg tablet 5 mg PO QAM #90 tabs 08/21/20 03/02/22 Rx levothyroxine 50 mcg tablet 50 mcg PO QAM #90 tabs 08/21/20 03/02/22 Rx triamcinolone acetonide 0.1 % 1 applic topical BID #30 grams 10/02/20 03/01/22 Rx topical cream glycerin 2 drp ophthalmic (eye) BID 10/17/20 03/02/22 History blood sugar diagnostic (OneTouch #100 ea 10/18/20 02/22/22 Rx Ultra Blue Test Strip) lancets 33 gauge (OneTouch Delica #100 ea 10/18/20 02/22/22 Rx Plus Lancet) blood-glucose meter (OneTouch #1 ea 10/31/20 02/22/22 Rx Ultra2 Meter) methylcellulose (with sugar) 2 2 g PO DAILY #454 grams 01/19/21 03/02/22 Rx gram/19 gram oral powder (Fiber Therapy (methylcellulose-sugar)) pen needle, diabetic 32 gauge x #100 ea 02/15/21 02/22/22 Rx 5/32" (BD Ultra-Fine Mary Carmen Pen Needle) famotidine 20 mg tablet 20 mg PO BID #60 tabs 03/28/21 03/02/22 Rx docusate sodium 100 mg capsule 100 mg PO BID #60 caps 04/03/21 03/02/22 Rx hydrocortisone 2.5 % topical cream 1 applic MS DAILY PRN hemorrhoids 04/09/21 03/02/22 Rx with perineal applicator #30 grams pregabalin 100 mg capsule 100 mg PO TID #90 caps 04/19/21 03/02/22 Rx diclofenac sodium 1 % topical gel 4 g topical QID PRN Pain 05/04/21 03/02/22 History carbidopa 25 mg-levodopa 100 mg 0.5 tab PO TID #45 tabs 05/21/21 03/02/22 Rx tablet (Sinemet) magnesium oxide 400 mg PO BID #60 tabs 06/04/21 03/02/22 Rx clopidogrel 75 mg tablet 75 mg PO QAM #90 tabs 06/11/21 03/02/22 Rx acetaminophen 325 mg tablet 650 mg PO QID PRN Pain 02/04/22 03/02/22 History cyanocobalamin (vitamin B-12) 1,000 mcg PO DAILY 02/04/22 03/02/22 History 1,000 mcg tablet duloxetine 60 mg capsule,delayed 30 mg PO QAM 02/04/22 03/02/22 History release furosemide 20 mg tablet 40 mg PO 3XWK 02/04/22 03/02/22 History insulin NPH-regular 70-30 U-100 30 unit subcut BID 02/04/22 03/02/22 History insulin 100 unit/mL subcutaneous pen (Novolin 70-30 FlexPen U-100 Insulin) insulin aspart U-100 100 unit/mL 1 sliding scale dose subcut 02/04/22 03/02/22 History subcutaneous solution (Novolog USEASDIRECTD U-100 Insulin aspart) lisinopril 40 mg tablet 40 mg PO DAILY 02/04/22 03/02/22 History magnesium hydroxide 800 mg/5 mL 7.75 mg PO DIRECTED PRN 02/04/22 03/02/22 History oral suspension Constipation ondansetron HCl 4 mg tablet 4 mg PO Q8H PRN Nausea 02/04/22 03/02/22 History pantoprazole 40 mg tablet,delayed 40 mg PO DAILY 02/04/22 03/02/22 History release semaglutide 0.25 mg or 0.5 mg (2 0.5 mg subcut WK 02/04/22 03/02/22 History mg/1.5 mL) subcutaneous pen injector (Ozempic) sodium phosphates 19 gram-7 118 ml MS DAILY PRN Constipation 02/04/22 03/02/22 History gram/118 mL enema (Enema) ofloxacin 0.3 % ear drops 5 drp otic (ear) BID #5 mL 03/01/22 03/02/22 Rx tramadol 50 mg tablet 50 mg PO Q8H PRN Pain #20 tabs 03/01/22 03/02/22 Rx Patient History Medical History Abnormal tympanic membrane R/L Atrial fibrillation Paroxysmal BPH (benign prostatic hyperplasia) CKD (chronic kidney disease) Coronary artery disease s/p CABG (2010) Depression DM type 2 (diabetes mellitus, type 2) GERD (gastroesophageal reflux disease) Hearing deficit HTN (hypertension) Hyperlipidemia Hypothyroid Kidney stones LVH (left ventricular hypertrophy) Focal thickening of the basal septum with no evidence of LVOT obstruction, Mild asymmetric LVH per 12/2018 echo Major depressive disorder Memory impairment Myocardial Infarction 2004 [place] [facility] 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 Yates Transient hypotension Upper respiratory infection Vocal cord paralysis Surgical History History of bilateral cataract extraction History of esophagogastroduodenoscopy (EGD) History of kidney surgery History of lithotripsy x2 History of lumbar laminectomy History of tooth extraction Hx of CABG 2003 ([facility] [place]) Family History Father Diabetes Coronary heart disease Mother Diabetes Coronary heart disease Myocardial infarction Sister Breast cancer Brother Coronary heart disease Son Family history of diabetes mellitus Family/Other Family history of diabetes mellitus grandson Other No family history of adverse response to anesthesia Denies family history of Ovarian cancer Prostate cancer Colorectal cancer Social History Smoking Status: Never smoker Second Hand Exposure: No; Hx Alcohol Use: No Hx Substance Use: No Preferred Language: Bulgarian Communication Ability: Impaired Visual Impairment: No Limitations Hearing Ability: Use of Hearing Aid Vat Packer Required: No Beliefs That Will Affect Care: None marital status: Current Living Situation: Halfway Current Living Situation Comment: [facility] current occupational status: retired current occupation: used to work in [employer] How many Children do You have: 1 Feels Safe at Home: Yes Safety Concerns: Feels Safe At This Time Childhood Exposure to Second-Hand Smoke: Yes caffeine: Yes Dental Care, Regularly: No Physical Activity Frequency: Does not Exercise Seatbelt Use: always Sunscreen Use: No Assistive Devices: Walker Review of Systems Review of Systems: Unable to obtain review of systems due to severe expressive aphasia, hearing loss Exam (Neuro) Constitutional: well developed and well nourished; no acute distress Eyes: normal visual lange by confrontation, PERRL, normal accommodation and EOM intact bilaterally; no fundoscopic abnormality, no nystagmus and no papilledema Cardiovascular: Vessels: normal carotid upstroke; no carotid bruit Neurologic: Attention: Span Intact Speech Fluency: Dysarthria Speech Aphasia: Aphasia Cranial Nerves: Normal II (Visual lange full to confrontation, visual acuity normal), III, IV, (Pupils equal round reactive to light and accommodation, eye movements normal), V (Facial sensation intact), IX, X (Palate elevates to midline), XI (Shoulder shrug intact) and XII (Tongue protrudes to midline); Abnorm VII (There is a right lower facial droop) or VIII (Appears to have significant bilateral hearing loss) Motor Strength: Normal Lower Extremities and Normal Upper Extremities; negative Pronator Drift Motor Tone: Normal Lower Extremities and Normal Upper Extremities Flaccidity: Arms Laterality: Right Muscle Bulk/Involuntary Movements: No Involuntary Movements; negative Muscle Atrophy Coordination: Normal, Finger-Nose Abnormal (Unable to perform [id number] on the right due to flaccid weakness) and Heel-Regalado Abnormal Laterality: Right Deep Tendon Reflexes: Rt Triceps: 1+, Lt Triceps: 1+, Rt Biceps: 1+, Lt Biceps: 1+, Rt Brachioradialis: 1+, Lt Brachioradialis: 1+, Rt Patellar: 1+, Lt Patellar: 1+, Rt Ankle: 1+ and Lt Ankle: 1+ Special Tests: Babinski Present (right) Details: Various tests of higher integrative cognitive functioning including orientation, memory, and fund of knowledge cannot be assessed due to patient's profound aphasia and hearing loss. Sensory function cannot be reliably assessed due to patient's aphasia and poor hearing. Gait cannot be tested in the context of patient's neurological status. Results & Data ([facility]) Vital Signs (Past 12 Hours) Vital Signs Temp Pulse Pulse Resp BP BP Pulse Ox 03/02/22 19:48 36.7 C 71 16 151/79 H 95 03/02/22 16:34 36.7 C 73 20 150/99 H 95 03/02/22 15:19 64 03/02/22 14:44 36.9 C 70 18 171/95 H 97 03/02/22 14:29 77 16 127/86 97 03/02/22 13:10 70 16 98 03/02/22 13:00 62 16 03/02/22 13:00 129/77 03/02/22 12:50 73 16 98 03/02/22 12:40 77 14 98 03/02/22 12:30 74 17 03/02/22 12:30 161/89 H 03/02/22 12:20 71 14 97 03/02/22 12:10 74 13 99 03/02/22 12:00 68 18 03/02/22 12:00 161/90 H 03/02/22 11:50 68 14 98 03/02/22 11:40 73 16 98 03/02/22 11:30 85 20 98 03/02/22 11:30 147/89 H 03/02/22 11:20 74 14 97 03/02/22 11:19 153/81 H 03/02/22 11:00 87 L 03/02/22 10:52 126/72 03/02/22 10:52 78 14 81 L 03/02/22 10:50 79 21 98 03/02/22 11:48 95 03/02/22 11:05 36.9 C 89 18 126/72 90 O2 Del Method 03/02/22 19:48 Room Air 03/02/22 16:34 Room Air 03/02/22 15:19 03/02/22 14:44 Room Air 03/02/22 14:29 Room Air 03/02/22 13:10 03/02/22 13:00 03/02/22 13:00 03/02/22 12:50 03/02/22 12:40 03/02/22 12:30 03/02/22 12:30 03/02/22 12:20 03/02/22 12:10 03/02/22 12:00 03/02/22 12:00 03/02/22 11:50 03/02/22 11:40 03/02/22 11:30 03/02/22 11:30 03/02/22 11:20 03/02/22 11:19 03/02/22 11:00 03/02/22 10:52 03/02/22 10:52 03/02/22 10:50 03/02/22 11:48 Room Air 03/02/22 11:05 Room Air Laboratory Results WBC 9.71, hemoglobin 13.6, hematocrit 40.2, MCV 91.2, platelet count 117, sodium 133, potassium 5.1, BUN 41, creatinine 1.81, glucose 177, calcium 9.2, magnesium 2.3, AST 15, ALT [address] of the head negative for hemorrhage or acute process. There are old lacunar infarcts within the bilateral basal ganglia and left thalamus as well as an old right temporal lobe infarct, unchanged compared with prior head CT done in July 2021. CT angiography of the head and neck reveals atherosclerotic vascular disease with multifocal high-grade intracranial stenoses, unchanged compared with prior examination done in April 2021. There is moderate atherosclerosis of the carotid bulbs without significant stenosis. Moderate stenosis of the proximal V1 segment of the right vertebral artery, unchanged. Brain MRI reveals a 12 mm acute infarct within the left basal ganglia/posterior limb of the left internal capsule. There is atrophy and microvascular ischemic disease. I independently reviewed the images and agree with the radiologist's findings as above. An electrocardiogram reveals atrial fibrillation, 74 bpm. Coding Level of Care Code 87835 Initial In Care Lvl 3 Diagnoses Stroke I63.9
[2022-03-03 07:18] LABS: BUN Creatinine Ratio 26.8 (10-20); Calcium 9.3 mg/dl (8.5-10.1); Chol HDL Ratio 2.7 (0-5); Creatinine Clr Calc Pharmacy 45.3 ml/min; Est GFR (African American) 51.5 ml/min; Est GFR (Non-African American) 44.4 ml/min; Potassium 4.8 mmol/L (3.5-5.1)
[2022-03-03 07:31] LABS: Basophils # (auto) 0.04 K/uL (0-0.2); Basophils % (auto) 0.4 %; Eosinophils # (auto) 0.03 K/uL (0-0.50); Eosinophils % (auto) 0.3 %; Hematocrit (blood only) 40.7 % (40.1-51.0); Hemoglobin 13.8 g/dl (14.0-18.0); Immature Granulocytes # (auto) 0.05 K/uL (0.00-0.02); Immature Granulocytes % (auto) 0.5 %; Lymphocytes # (auto) 1.57 K/uL (1.2-3.4); Lymphocytes % (auto) 15.8 %; Mean Corpuscular Hemoglobin 30.5 pg (25.0-34.0); Mean Corpuscular Hgb Conc 33.9 g/dL (32.0-36.0); Mean Platelet Volume 11.9 fL (9.4-12.4); Monocytes # (auto) 1.02 K/uL (0.24-0.82); Monocytes % (auto) 10.2 %; Neutrophils # (auto) 7.25 K/uL (1.4-6.5); Neutrophils % (auto) 72.8 %; Platelet Count 114 K/uL (130-400); RBC Morphology Unremarkable; RDW Coefficient of Variation 14.3 % (11.5-14.5); RDW Standard Deviation 46.5 fL (36.4-46.3); Red Blood Count 4.52 M/uL (4.63-6.08); White Blood Count 9.96 K/ul (4.8-10.8)
[2022-03-03] MEDS: INSULIN ASPART PER UNIT SC SCH ×4 (07:43→20:39)
[2022-03-03] MEDS ORDERED: CLOPIDOGREL BISULFATE 75 MG TAB PO SCH (09:00)
[2022-03-03] MEDS ORDERED: PANTOprazole 40 MG in SYRINGE 0 ML IV SCH (09:00)
[2022-03-03] MEDS ORDERED: PNEUMOCOCCAL POLYSACCHARIDES 25 MCG/0.5 ML VIAL/SYR IM ONE (09:00)
[2022-03-03] MEDS ORDERED: PANTOprazole 40 MG TAB PO SCH (09:00)
--- NOTE | 2022-03-03 09:08 | Electrocardiogram Report ---
Test Reason : Blood Pressure : / mmHG Vent. Rate : 074 BPM Atrial Rate : 102 BPM P-R Int : 000 ms QRS Dur : 092 ms QT Int : 388 ms P-R-T Axes : 000 008 065 degrees QTc Int : 430 ms Atrial fibrillation Abnormal ECG When compared with ECG of 10-AUG-2021 11:43, No significant change was found Confirmed by Romie Becerra ([id number]) on 03/03/2022 9:07:43 AM Referred By: REFERRED SELF Confirmed By:Romie Becerra
[2022-03-03] MEDS: PANTOprazole 40 MG in SYRINGE 0 ML IV SCH (09:59)
[2022-03-03] MEDS: FAMOTIDINE 20 MG in SYRINGE 3 ML IV SCH ×2 (09:59→20:02)
[2022-03-03] MEDS: SODIUM CHLORIDE 0.9% 500 ML IV SCH ×2 (10:03→15:20)
[2022-03-03] MEDS: CARBIDOPA/LEVODOPA 25/100MG TAB PO SCH ×3 (10:03→19:28)
[2022-03-03] MEDS: DULoxetine HCL 30 MG CAP PO SCH (10:04)
[2022-03-03] MEDS: PREGABALIN 100 MG CAP PO SCH ×3 (10:04→19:28)
[2022-03-03] MEDS: FINASTERIDE 5 MG TAB PO SCH (10:04)
[2022-03-03] MEDS: MAGNESIUM OXIDE 400 MG TAB PO SCH ×2 (10:04→19:28)
[2022-03-03] MEDS: DOCUSATE SODIUM 100 MG CAP PO SCH ×2 (10:04→19:28)
[2022-03-03] MEDS: LEVOTHYROXINE SODIUM 50 MCG TABLET PO SCH (10:04)
[2022-03-03] MEDS: CYANOCOBALAMIN (B-12) 500 MCG TABLET PO SCH (10:04)
[2022-03-03] MEDS ORDERED: Heparin IV Adult Wt-Based Low-Dose *NO* Bolus Protocol IV SCH (10:15)
[2022-03-03] MEDS: ASPIRIN 300 MG SUPP PR SCH (10:31)
[2022-03-03 10:58] LABS: INR 1.1 (0.9-1.1); Partial Thromboplastin Ratio 1.1; Prothrombin Time 11.3 Seconds (9.0-12.0)
[2022-03-03] MEDS: HEPARIN SODIUM/DEXTROSE 25,000 UNITS/500 ML BAG IV SCH (11:16)
[2022-03-03 11:38] LABS: Basophils # (auto) 0.03 K/uL (0-0.2); Basophils % (auto) 0.3 %; Eosinophils # (auto) 0.03 K/uL (0-0.50); Eosinophils % (auto) 0.3 %; Hemoglobin 13.6 g/dl (14.0-18.0); Immature Granulocytes # (auto) 0.04 K/uL (0.00-0.02); Immature Granulocytes % (auto) 0.4 %; Lymphocytes # (auto) 1.38 K/uL (1.2-3.4); Lymphocytes % (auto) 13.9 %; Mean Corpuscular Hemoglobin 30.6 pg (25.0-34.0); Mean Corpuscular Volume 90.1 fL (80.0-100.0); Mean Platelet Volume 11.6 fL (9.4-12.4); Monocytes # (auto) 1.06 K/uL (0.24-0.82); Monocytes % (auto) 10.6 %; Neutrophils # (auto) 7.42 K/uL (1.4-6.5); Neutrophils % (auto) 74.5 %; Platelet Count 114 K/uL (130-400); RBC Morphology Unremarkable; RDW Coefficient of Variation 14.2 % (11.5-14.5); RDW Standard Deviation 46.1 fL (36.4-46.3); Red Blood Count 4.44 M/uL (4.63-6.08); White Blood Count 9.96 K/ul (4.8-10.8)
--- NOTE | 2022-03-03 13:59 | Hospitalist Progress Note ---
Date of Service March 03, 2022 Assessment & Plan (1) Stroke: Plan: -Acute ischemic CVAcould be embolic; discussed with Dr. Ge; blood in sinuses [facility] likely old[place]ay to start heparin; n.p.o., rectal aspirin for now Statin, bubble echo pending (2) Status post myringotomy with tube placement of both ears: Plan: - Yesterday with Dr. Ge. No complications. -As above, Dr. Ge aware. (3) S/P nasal polypectomy: Plan: - Yesterday with Dr. Ge. - Patient instructed not to blow his nose for 48 hours. Has not been compliant with this, had a nose bleed this AM which was well controlled. - Continue to remind patient not to blow nose for the next 24 hours. (4) Atrial fibrillation: Plan: - Chronic, remains rate controlled without AV chris block agents. -Resume Heparin without bolus, low-dose protocol. (5) Coronary artery disease: Plan: - Stable, without acute chest pain today. hs trop 19.5. - Continue statin and Plavix, (6) Stage III chronic kidney disease: Plan: -Fluctuating parameters; in general appears CKD stage III; cannot diagnose NAVEED Hold Lasix, gentle volume (7) DM type 2 (diabetes mellitus, type 2): Plan: - Continue sliding-scale, n.p.o. at present; I held Lantusreassess (8) HTN (hypertension): Plan: - Lisinopril held d/t NAVEED. - Would want to allow for a degree of permissive HTN in first 24 hours of CVA, however patient presented normotensive and has remained so thus far. 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 (13) BPH (benign prostatic hyperplasia): Plan: - Continue finasteride when able. (14) Thrombocytopenia: Plan: - Documented history of on last admission. - PLTs 117 today, about baseline. (15) Depression: Plan: - Continue Cymbalta for depression/neuropathy. (16) B12 deficiency: Plan: - Continue daily supplementation. - Add on B12 level to AM labs. 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 -At present failed swallow; oropharyngeal dysphagia superimposed due to stroken.p.o.; if persists will need tube feeding soon Plan - DNR/DNI. Admission and Anticipated Discharge Date Admission Date: March 02, 2022 Subjective Follow-up of right-sided weaknesscontinued weakness, dysarthric Physical Exam Physical Exam: Constitutional and general: Awake but barely communicative, looks biologic age Head and face: No puffiness, atraumatic Neck: Supple, no JVD Musculoskeletal: No acute joint swelling, no bony abnormalities Skin/dermatologic/integument: No rash, no purpura Hematologic and lymphatic: pallor +, no petechia Gastrointestinal/abdomen: Nondistended, soft, nonacute Neurologic: Right hemiparesis upper limb more than lower, dysarthria, subtle aphasia Cardiovascular: Heart rhythm irregular, no rub, no gallop Respiratory: Chest movements equal, no use of accessory muscles, few large airway sounds Extremities: No edema, no cyanosis Results & Data Results & Data ([facility]) Vital Signs (Past 12 Hours) Vital Signs Temp Pulse Resp BP Pulse Ox O2 Del Method 03/03/22 11:02 37.2 C 87 21 165/98 H 96 Room Air 03/03/22 07:33 36.9 C 85 20 154/97 H 96 Room Air 03/03/22 07:11 Room Air 03/03/22 02:47 36.5 C 80 16 158/90 H 97 Room Air PG Care Time/CCT Total # of Minutes Spent Total Time Spent with Patient: Total time spent is greater than 50% in coordination of care (as documented) at patient's floor/unit and/or counseling patient: Coding Level of Care Code 18221 Subseq Hosp Care Lvl 3 Diagnoses Stroke I63.9 Status post myringotomy with tube placement of both ears Z96.22 S/P nasal polypectomy Z98.890 Atrial fibrillation I48.21 Atrial fibrillation type: permanent Coronary artery disease I25.10 Stage III chronic kidney disease N18.3 DM type 2 (diabetes mellitus, type 2) E11.9; Z79.4 Diabetes mellitus joint terminal attack controller insulin use: with [facility] use Diabetes mellitus complication status: without complication HTN (hypertension) I10 Hypothyroid E03.9 Hypothyroidism type: acquired Hyperlipidemia E78.2 Hyperlipidemia type: mixed hyperlipidemia GERD (gastroesophageal reflux disease) K21.9 Esophagitis presence: esophagitis presence not specified Memory impairment R41.3 BPH (benign prostatic hyperplasia) N40.0 Thrombocytopenia D69.6 Depression F32.9 B12 deficiency E53.8 Dysphagia R13.10 (1) Atrial fibrillation Atrial fibrillation type: permanent Qualified Code(s): I48.21 - Permanent atrial fibrillation (2) DM type 2 (diabetes mellitus, type 2) Diabetes mellitus joint terminal attack controller insulin use: with joint terminal attack controller use Diabetes mellitus complication status: without complication Qualified Code(s): E11.9 - Type 2 diabetes mellitus without complications; Z79.4 - long-term (current) use of insulin (3) Hypothyroid Hypothyroidism type: acquired Qualified Code(s): E03.9 - Hypothyroidism, unspecified (4) Hyperlipidemia Hyperlipidemia type: mixed hyperlipidemia Qualified Code(s): E78.2 - Mixed hyperlipidemia (5) GERD (gastroesophageal reflux disease) Esophagitis presence: esophagitis presence not specified Qualified Code(s): K21.9 - Gastro-esophageal reflux disease without esophagitis
--- NOTE | 2022-03-03 14:00 | XCELERA ---
[id number] \\[id number]_[id number]
[2022-03-03] MEDS: OFLOXACIN 0.3% OT SCH ×2 (14:07→20:04)
--- NOTE | 2022-03-03 15:33 | Emergency Department Note ---
Impression & Plan Acute CVA (cerebrovascular accident), S/P sinus surgery, S/P tube myringotomy ED Provider Note CHIEF COMPLAINT: Stroke symptoms HISTORY OF PRESENT ILLNESS: This 86-year-old male patient presents to the emergency department with complaints of strokelike symptoms. The patient had surgery yesterday for bilateral myringotomy tubes as well as sinus surgery. He was taken off of his apixaban, which he takes for atrial fibrillation, prior to surgery. Per the custodial physician, the patient was bleeding most of the night from the nose and required several rounds of Afrin to help stop the bleeding. He does have great difficulty hearing without his hearing aids but this morning his son called him at 7:45 AM and noted his speech to be significantly altered. Staff went to check on the patient and realized that his right upper extremity and right face was drooped. He had significant aphasia. The patient does walk with a walker and is able to use a wheelchair to scoot himself around the custodial where he has resided for the last 3 to 4 months. REVIEW OF SYSTEMS: A review of systems was performed with positives and pertinent negatives listed in the history of present illness. 10 systems were reviewed and are otherwise negative. ALLERGIES: see below MEDICATIONS: see below PMH: see below SOCIAL HISTORY: see below DDx: Infection, dehydration, metabolic abnormality, hypo/hyperglycemia, electrolyte disturbance, anemia, hypoxia, cardiac sources, intracerebral event, toxicologic, neurologic, as well as other pathologies. PHYSICAL EXAM: Vital signs reviewed. General: Chronically ill-appearing, elderly 86-year-old male, in no significant distress. HEENT: No scleral icterus, PERRLA, neck supple. Atraumatic. Cardiovascular: Irregular rate controlled Pulmonary: Clear to auscultation bilaterally, normal work of breathing. Abdomen: Soft, nontender, nondistended, positive bowel sounds. Musculoskeletal: Atraumatic, no peripheral edema. Neurologic: Patient awake alert and able to nod yes or no after reading questions written on a white board. Patient's speech is nearly incomprehensible/muffled. Profound right-sided facial droop. 1-2/5 strength of right upper extremity. Full strength of left upper extremity. Skin: Warm, dry, no rash EMERGENCY DEPARTMENT COURSE/MDM: This patient was evaluated and appeared to be in no significant distress however it was apparent that he was having an acute stroke. The patient had complicating factors such as his recent surgery and the fact that he was recently taken off of his anticoagulant. I did speak with the patient's son who confirmed his baseline functional status. A stroke alert was called. Patient's last known well time exactly clear but felt to be prior to 7:45 this morning. Patient was felt not to be a candidate for thrombolytics secondary to his surgery within the last 2 days and persistent bleeding from the nose overnight. CT angiogram revealed no evidence of large vessel occlusion and therefore patient was felt not to be candidate for any interventional procedures. Situation was explained to the patient, his family at the bedside. I did speak with his son over the phone several times. I also spoke with the patient's physician, Dr. Holm at [facility] who knows the patient very well. Patient will be evaluated by the hospitalist service for admission and further management. MONITORING: An order for cardiac monitoring was placed and the patient is noted to be in an atrial fibrillation at 78 beats per minute. RADIOLOGY: see below EKG: Atrial fibrillation at 74 bpm. No PVC, no PAC. No acute ST elevation. QTc is 430. No significant change from August 10, 2019 DISPOSITION: Admission I have personally spent 45 minutes of critical care time in the direct managem ent of this patient. This was a life/limb threatening event. This 45 minutes is in excess of all separately billable procedures. Past Med/Surg History Medical History Abnormal tympanic membrane R/L Atrial fibrillation Paroxysmal BPH (benign prostatic hyperplasia) CKD (chronic kidney disease) Coronary artery disease s/p CABG (2010) Depression DM type 2 (diabetes mellitus, type 2) GERD (gastroesophageal reflux disease) Hearing deficit HTN (hypertension) Hyperlipidemia Hypothyroid Kidney stones LVH (left ventricular hypertrophy) Focal thickening of the basal septum with no evidence of LVOT obstruction, Mild asymmetric LVH per 12/2018 echo Major depressive disorder Memory impairment Myocardial Infarction 2004 Follows with [facility] [place]/Dr. 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 Yates Transient hypotension Upper respiratory infection Vocal cord paralysis Surgical History History of bilateral cataract extraction History of esophagogastroduodenoscopy (EGD) History of kidney surgery History of lithotripsy x2 History of lumbar laminectomy History of tooth extraction Hx of CABG 2003 ([facility] [place]) Family History Father Diabetes Coronary heart disease Mother Diabetes Coronary heart disease Myocardial infarction Sister Breast cancer Brother Coronary heart disease Son Family history of diabetes mellitus Family/Other Family history of diabetes mellitus grandson Other No family history of adverse response to anesthesia Denies family history of Ovarian cancer Prostate cancer Colorectal cancer Social History Smoking Status: Never smoker Second Hand Exposure: No; Hx Alcohol Use: No Hx Substance Use: No Preferred Language: Lao Communication Ability: Impaired Visual Impairment: No Limitations Hearing Ability: Use of Hearing Aid Bakery Assistant Required: No Beliefs That Will Affect Care: None marital status: Current Living Situation: [facility] Current Living Situation Comment: [facility] current occupational status: retired current occupation: used to work in [employer] How many Children do You have: 1 Feels Safe at Home: Yes Childhood Exposure to Second-Hand Smoke: Yes caffeine: Yes Dental Care, Regularly: No Physical Activity Frequency: Does not Exercise Seatbelt Use: always Sunscreen Use: No Assistive Devices: Walker and Wheelchair Allergies Allergies Allergy/AdvReac Type Severity Reaction Status Date / Time hydrocodone AdvReac Mild Dizziness, Verified 03/01/22 05:55 [From Panlor Nausea (hydrocodone-acetamin)] oxycodone AdvReac Mild N/V Verified 03/01/22 05:55 tramadol AdvReac Mild Confusion Verified 03/01/22 05:55 Home Meds Home Medications Medication Instructions Recorded Confirmed glycerin 2 drp ophthalmic (eye) BID 10/17/20 03/02/22 diclofenac sodium 1 % topical gel 4 g topical QID PRN Pain 05/04/21 03/02/22 acetaminophen 325 mg tablet 650 mg PO QID PRN Pain 02/04/22 03/02/22 cyanocobalamin (vitamin B-12) 1,000 mcg PO DAILY 02/04/22 03/02/22 1,000 mcg tablet duloxetine 60 mg capsule,delayed 30 mg PO QAM 02/04/22 03/02/22 release furosemide 20 mg tablet 40 mg PO 3XWK 02/04/22 03/02/22 insulin NPH-regular 70-30 U-100 30 unit subcut BID 02/04/22 03/02/22 insulin 100 unit/mL subcutaneous pen (Novolin 70-30 FlexPen U-100 Insulin) insulin aspart U-100 100 unit/mL 1 sliding scale dose subcut 02/04/22 03/02/22 subcutaneous solution (Novolog USEASDIRECTD U-100 Insulin aspart) lisinopril 40 mg tablet 40 mg PO DAILY 02/04/22 03/02/22 magnesium hydroxide 800 mg/5 mL 7.75 mg PO DIRECTED PRN 02/04/22 03/02/22 oral suspension Constipation ondansetron HCl 4 mg tablet 4 mg PO Q8H PRN Nausea 02/04/22 03/02/22 pantoprazole 40 mg tablet,delayed 40 mg PO DAILY 02/04/22 03/02/22 release semaglutide 0.25 mg or 0.5 mg (2 0.5 mg subcut WK 02/04/22 03/02/22 mg/1.5 mL) subcutaneous pen injector (Ozempic) sodium phosphates 19 gram-7 118 ml RI DAILY PRN Constipation 02/04/22 03/02/22 gram/118 mL enema (Enema) Previous Rx's Medication Instructions Recorded apixaban 2.5 mg tablet (Eliquis) 2.5 mg PO BID #180 tabs 08/21/20 atorvastatin 80 mg tablet 80 mg PO HS #90 tabs 08/21/20 finasteride 5 mg tablet 5 mg PO QAM #90 tabs 08/21/20 levothyroxine 50 mcg tablet 50 mcg PO QAM #90 tabs 08/21/20 triamcinolone acetonide 0.1 % 1 applic topical BID #30 grams 10/02/20 topical cream blood sugar diagnostic (OneTouch #100 ea 10/18/20 Ultra Blue Test Strip) lancets 33 gauge (OneTouch Delica #100 ea 10/18/20 Plus Lancet) blood-glucose meter (OneTouch #1 ea 10/31/20 Ultra2 Meter) methylcellulose (with sugar) 2 2 g PO DAILY #454 grams 01/19/21 gram/19 gram oral powder (Fiber Therapy (methylcellulose-sugar)) pen needle, diabetic 32 gauge x #100 ea 02/15/21" (BD Ultra-Fine Mary Carmen Pen Needle) famotidine 20 mg tablet 20 mg PO BID #60 tabs 03/28/21 docusate sodium 100 mg capsule 100 mg PO BID #60 caps 04/03/21 hydrocortisone 2.5 % topical cream 1 applic RI DAILY PRN hemorrhoids 04/09/21 with perineal applicator #30 grams pregabalin 100 mg capsule 100 mg PO TID #90 caps 04/19/21 carbidopa 25 mg-levodopa 100 mg 0.5 tab PO TID #45 tabs 05/21/21 tablet (Sinemet) magnesium oxide 400 mg PO BID #60 tabs 06/04/21 clopidogrel 75 mg tablet 75 mg PO QAM #90 tabs 06/11/21 ofloxacin 0.3 % ear drops 5 drp otic (ear) BID #5 mL 03/01/22 tramadol 50 mg tablet 50 mg PO Q8H PRN Pain #20 tabs 03/01/22 Results & Data (ED) Vital Signs Vital Signs - 24 hr 03/02/22 12:10 03/02/22 12:20 03/02/22 12:30 Pulse Rate 74 71 Pulse Rate from SpO2 Sensor 79 71 Respiratory Rate 13 14 Blood Pressure 161/89 H Blood Pressure Mean 113 Pulse Oximetry 99 97 03/02/22 12:30 03/02/22 12:40 03/02/22 12:50 Pulse Rate 74 77 73 Pulse Rate from SpO2 Sensor 77 77 Respiratory Rate 17 14 16 Blood Pressure Blood Pressure Mean Pulse Oximetry 98 98 03/02/22 13:00 03/02/22 13:00 Pulse Rate 62 Pulse Rate from SpO2 Sensor Respiratory Rate 16 Blood Pressure 129/77 Blood Pressure Mean 94 Pulse Oximetry Home Medications Current Medication List: was personally reviewed by me Laboratory Data Attestation: I reviewed the patient's lab results. Result diagrams: 03/10/22 05:50 03/10/22 05:50 Lab Results 03/02/22 03/02/22 03/02/22 Range/Units 11:04 11:04 11:04 WBC 9.71 (4.8-10.8) K/ul RBC 4.41 L (4.63-6.08) M/uL Hgb 13.6 L (14.0-18.0) g/dl POC Hgb (14.0-18.0) g/dl Hct 40.2 (40.1-51.0) % POC Hct (42-52) % MCV 91.2 (80.0-100.0) fL MCH 30.8 (25.0-34.0) pg MCHC 33.8 (32.0-36.0) g/dL RDW Std Deviation 45.8 (36.4-46.3) fL RDW Coeff of Eben 13.8 (11.5-14.5) % Plt Count 117 L (130-400) K/uL MPV 11.6 (9.4-12.4) fL Immature Gran % (Auto) 0.3 % Neut % (Auto) 76.4 % Lymph % (Auto) 14.3 % Cuming % (Auto) 8.9 % Eos % (Auto) 0.0 % Baso % (Auto) 0.1 % Neut # (Auto) 7.42 H (1.4-6.5) K/uL Lymph # (Auto) 1.39 (1.2-3.4) K/uL Cuming # (Auto) 0.86 H (0.24-0.82) K/uL Eos # (Auto) 0.00 (0-0.50) K/uL Baso # (Auto) 0.01 (0-0.2) K/uL Immature Gran # (Auto) 0.03 H (0.00-0.02) K/uL RBC Morphology Unremarkable PT 11.5 (9.0-12.0) Seconds INR 1.1 (0.9-1.1) APTT 29.9 (21.0-31.0) Seconds PTT Ratio 1.1 POC Sodium (135-144) mmol/L Sodium 133 L (136-145) mmol/L POC Potassium (3.3-5.0) mmol/L Potassium 5.1 (3.5-5.1) mmol/L POC Chloride (101-112) mmol/L Chloride 101 (98-107) mmol/L Carbon Dioxide 24 (21-32) mmol/L POC Total CO2 (24-31) mmol/L Anion Gap 8 (3-11) POC Anion Gap (16-25) mmol/L POC BUN (7-18) mg/dl BUN 41 H (6-23) mg/dl Creatinine 1.81 H (0.6-1.4) mg/dl POC Creatinine (0.6-1.3) mg/dl Est Cr Clr Drug Dosing Not Reportable Est GFR ( Amer) 38.4 ml/min Est GFR (Non-Af Amer) 33.1 ml/min BUN/Creatinine Ratio 22.7 H (10-20) Glucose 177 H (70-99(Fasting)) mg/dl POC Glucose (70-99) mg/dl POC Glucose (other) (70-99) mg/dl Calcium 9.2 (8.5-10.1) mg/dl POC Ioniz Calcium Estevan (1.12-1.32) mmol/l Magnesium 2.3 (1.7-2.4) mg/dl Total Bilirubin 0.9 (0.2-1.0) mg/dl AST 15 (13-39) U/L ALT 13 (7-52) U/L Alkaline Phosphatase 54 (34-104) U/L Troponin I High Sens 19.5 (0-20) pg/ml Total Protein 6.8 (6.0-8.3) gm/dl Albumin 3.7 (3.4-5.0) gm/dl Globulin 3.1 (2.5-4.0) gm/dl Albumin/Globulin Ratio 1.2 (0.9-2) SARS-CoV-2, RNA, NAAT (NEGATIVE) 03/02/22 03/02/22 03/02/22 Range/Units 11:05 11:25 11:42 WBC (4.8-10.8) K/ul RBC (4.63-6.08) M/uL Hgb (14.0-18.0) g/dl POC Hgb 13.6 L (14.0-18.0) g/dl Hct (40.1-51.0) % POC Hct 40 L (42-52) % MCV (80.0-100.0) fL MCH (25.0-34.0) pg MCHC (32.0-36.0) g/dL RDW Std Deviation (36.4-46.3) fL RDW Coeff of Eben (11.5-14.5) % Plt Count (130-400) K/uL MPV (9.4-12.4) fL Immature Gran % (Auto) % Neut % (Auto) % Lymph % (Auto) % Cuming % (Auto) % Eos % (Auto) % Baso % (Auto) % Neut # (Auto) (1.4-6.5) K/uL Lymph # (Auto) (1.2-3.4) K/uL Cuming # (Auto) (0.24-0.82) K/uL Eos # (Auto) (0-0.50) K/uL Baso # (Auto) (0-0.2) K/uL Immature Gran # (Auto) (0.00-0.02) K/uL RBC Morphology PT (9.0-12.0) Seconds INR (0.9-1.1) APTT (21.0-31.0) Seconds PTT Ratio POC Sodium 135 (135-144) mmol/L Sodium (136-145) mmol/L POC Potassium 5.2 H (3.3-5.0) mmol/L Potassium (3.5-5.1) mmol/L POC Chloride 100 L (101-112) mmol/L Chloride (98-107) mmol/L Carbon Dioxide (21-32) mmol/L POC Total CO2 24 (24-31) mmol/L Anion Gap (3-11) POC Anion Gap 17.0 (16-25) mmol/L POC BUN 38 H (7-18) mg/dl BUN (6-23) mg/dl Creatinine (0.6-1.4) mg/dl POC Creatinine 2.0 H (0.6-1.3) mg/dl Est Cr Clr Drug Dosing Est GFR ( Amer) ml/min Est GFR (Non-Af Amer) ml/min BUN/Creatinine Ratio (10-20) Glucose (70-99(Fasting)) mg/dl POC Glucose 183 H (70-99) mg/dl POC Glucose (other) 183 H (70-99) mg/dl Calcium (8.5-10.1) mg/dl POC Ioniz Calcium Estevan 1.18 (1.12-1.32) mmol/l Magnesium (1.7-2.4) mg/dl Total Bilirubin (0.2-1.0) mg/dl AST (13-39) U/L ALT (7-52) U/L Alkaline Phosphatase (34-104) U/L Troponin I High Sens (0-20) pg/ml Total Protein (6.0-8.3) gm/dl Albumin (3.4-5.0) gm/dl Globulin (2.5-4.0) gm/dl Albumin/Globulin Ratio (0.9-2) SARS-CoV-2, RNA, NAAT NEGATIVE (NEGATIVE) Administered Medications Amlodipine Besylate (Amlodipine Besylate 5 Mg Tab) 5 mg PO QAM STEPH Stop: 04/08/22 16:14 Last Admin: 03/10/22 09:52 Dose: Not Given Documented By: Admin: 03/09/22 18:20 Dose: Not Given Documented By: TOBI Aspirin (Aspirin 300 Mg Supp) 300 mg RI DAILY STEPH Stop: 04/09/22 16:29 Last Admin: 03/10/22 18:31 Dose: 300 mg Documented By: TOBI Atorvastatin Calcium (Atorvastatin 40 Mg Tab) 80 mg NG HS STEPH Stop: 04/07/22 20:59 Last Admin: 03/10/22 21:28 Dose: Not Given Documented By: [facility] Admin: 03/09/22 21:18 Dose: Not Given Documented By: Admin: 03/08/22 21:22 Dose: 80 mg Documented By: AURELIANO Carbidopa/Levodopa (Carbidopa/Levodopa 25/100mg Tab) 0.5 tab NG TID [facility] Stop: 04/07/22 20:59 Last Admin: 03/10/22 21:29 Dose: Not Given Documented By: [facility] Admin: 03/10/22 14:39 Dose: Not Given Documented By: Admin: 03/10/22 09:52 Dose: Not Given Documented By: Admin: 03/09/22 21:19 Dose: Not Given Documented By: Admin: 03/09/22 16:42 Dose: Not Given Documented By: Admin: 03/09/22 09:39 Dose: 0.5 tab Documented By: Admin: 03/08/22 21:22 Dose: 0.5 tab Documented By: AURELIANO Clopidogrel Bisulfate (Clopidogrel Bisulfate 75 Mg Tab) 75 mg PEG QAM STEPH Stop: 04/08/22 08:59 Last Admin: 03/10/22 09:53 Dose: Not Given Documented By: Admin: 03/09/22 09:42 Dose: 75 mg Documented By: TOBI Cyanocobalamin (Cyanocobalamin (B-12) 500 Mcg Tablet) 1,000 mcg NG DAILY STEPH Stop: 04/08/22 08:59 Last Admin: 03/10/22 09:53 Dose: Not Given Documented By: Admin: 03/09/22 09:42 Dose: 1,000 mcg Documented By: TOBI Docusate Sodium (Docusate Sodium Syrup 100 Mg/10 Ml Udc) 100 mg NG BID STEPH Stop: 04/07/22 20:59 Last Admin: 03/10/22 21:29 Dose: Not Given Documented By: Admin: 03/10/22 09:53 Dose: Not Given Documented By: Admin: 03/09/22 21:19 Dose: Not Given Documented By: Admin: 03/09/22 09:40 Dose: 100 mg Documented By: Admin: 03/08/22 21:21 Dose: 100 mg Documented By: AURELIANO Enteral Nutritional Formula (Fibersource Hn 1.2 Raul 1000 Ml Bag) 1,000 ml NG UD STEPH; Protocol Stop: 04/07/22 17:14 Last Admin: 03/08/22 18:58 Dose: 1,000 ml Documented By: AURELIANO Dextrose/Lactated Ringer's (D5w And Lactated Ringers) 1,000 mls @ 70 mls/hr IV .[id number] STEPH Stop: 04/05/22 08:44 Last Admin: 03/10/22 18:26 Dose: 70 mls/hr Documented By: Infusion: 03/10/22 18:03 Dose: 70 mls/hr Documented By: Admin: 03/10/22 03:45 Dose: 70 mls/hr Documented By: Infusion: 03/10/22 03:45 Dose: 70 mls/hr Documented By: Admin: 03/09/22 16:55 Dose: 70 mls/hr Documented By: Infusion: 03/09/22 15:00 Dose: 70 mls/hr Documented By: Infusion: 03/09/22 07:35 Dose: 70 mls/hr Documented By: Admin: 03/09/22 01:34 Dose: 80 mls/hr Documented By: Infusion: 03/08/22 22:38 Dose: 80 mls/hr Documented By: Admin: 03/08/22 10:08 Dose: 80 mls/hr Documented By: Infusion: 03/08/22 10:08 Dose: 0 mls/hr Documented By: Admin: 03/07/22 21:29 Dose: 80 mls/hr Documented By: Infusion: 03/07/22 21:29 Dose: 80 mls/hr Documented By: Admin: 03/07/22 09:23 Dose: 80 mls/hr Documented By: Infusion: 03/07/22 09:23 Dose: 80 mls/hr Documented By: Admin: 03/06/22 21:42 Dose: 80 mls/hr Documented By: Infusion: 03/06/22 21:42 Dose: 80 mls/hr Documented By: Admin: 03/06/22 09:41 Dose: 80 mls/hr Documented By: ELEAZAR Heparin Sodium/Dextrose (Heparin Sodium/Dextrose) 25,000 units in 500 mls @ 23 mls/hr IV .[id number] [facility]; Protocol Stop: 04/07/22 17:14 Last Titration: 03/10/22 19:06 Dose: 1,150 units/hr, 23 mls/hr Documented By: CJC Co-signed By: CG Admin: 03/10/22 09:24 Dose: 1,150 units/hr, 23 mls/hr Documented By: CG Co-signed By: PW Titration: 03/10/22 07:20 Dose: 1,150 units/hr, 23 mls/hr Documented By: CG Co-signed By: PW Titration: 03/10/22 07:07 Dose: 1,150 units/hr, 23 mls/hr Documented By: CG Co-signed By: KS Titration: 03/10/22 06:54 Dose: 1,250 units/hr, 25 mls/hr Documented By: CG Co-signed By: KS Titration: 03/09/22 22:21 Dose: 1,250 units/hr, 25 mls/hr Documented By: KS Co-signed By: CATHERINE Titration: 03/09/22 18:57 Dose: 1,250 units/hr, 25 mls/hr Documented By: KS Co-signed By: CG Titration: 03/09/22 15:19 Dose: 1,250 units/hr, 25 mls/hr Documented By: CG Co-signed By: PW Titration: 03/09/22 14:16 Dose: 0 units/hr, 0 mls/hr Documented By: CG Co-signed By: PW Admin: 03/09/22 10:41 Dose: 1,400 units/hr, 28 mls/hr Documented By: CG Co-signed By: PW Titration: 03/09/22 10:41 Dose: 1,400 units/hr, 28 mls/hr Documented By: CG Co-signed By: PW Titration: 03/09/22 07:17 Dose: 1,400 units/hr, 28 mls/hr Documented By: CG Co-signed By: MELCHOR Titration: 03/09/22 06:57 Dose: 1,500 units/hr, 30 mls/hr Documented By: CG Co-signed By: AURELIANO Titration: 03/09/22 01:19 Dose: 1,500 units/hr, 30 mls/hr Documented By: AURELIANO Co-signed By: SILVER Admin: 03/08/22 18:34 Dose: 1,500 units/hr, 30 mls/hr Documented By: MM Co-signed By: Acetaminophen (Ofirmev) 1,000 mg in 100 mls @ 400 mls/hr IV Q8H PRN PRN Reason: pain or fever Stop: 03/13/22 16:56 Last Infusion: 03/10/22 17:49 Dose: 0 mls/hr Documented By: Admin: 03/10/22 17:09 Dose: 400 mls/hr Documented By: TOBI Insulin Aspart (Insulin Aspart Per Unit) 0 units SC Q6 STEPH; Protocol Stop: 04/03/22 05:59 Last Admin: 03/10/22 18:26 Dose: 1 units Documented By: CG Co-signed By: MELCHOR Admin: 03/10/22 12:38 Dose: 2 units Documented By: CG Co-signed By: NIESHA Admin: 03/10/22 06:15 Dose: 1 units Documented By: AURELIANO Co-signed By: CATHERINE Admin: 03/09/22 23:50 Dose: 1 units Documented By: KS Co-signed By: SILVER Admin: 03/09/22 18:27 Dose: 1 units Documented By: CG Co-signed By: MELCHOR Admin: 03/09/22 12:20 Dose: 3 units Documented By: CG Co-signed By: MELCHOR Admin: 03/09/22 06:01 Dose: 2 units Documented By: AURELIANO Co-signed By: SILVER Admin: 03/08/22 23:56 Dose: 1 units Documented By: AURELIANO Co-signed By: SILVER Admin: 03/08/22 19:12 Dose: 2 units Documented By: PAULO Co-signed By: ORALIA Admin: 03/08/22 13:25 Dose: Not Given Documented By: Admin: 03/08/22 05:53 Dose: 1 units Documented By: LLP Co-signed By: SILVER Admin: 03/08/22 00:07 Dose: 1 units Documented By: LLP Co-signed By: CF Admin: 03/07/22 18:26 Dose: Not Given Documented By: Admin: 03/07/22 12:41 Dose: 2 units Documented By: ELEAZAR Co-signed By: JENNIFER Admin: 03/07/22 06:28 Dose: 2 units Documented By: KAYLEIGH Co-signed By: MOI Admin: 03/07/22 00:11 Dose: 1 units Documented By: KAYLEIGH Co-signed By: KAREEM Admin: 03/06/22 18:05 Dose: Not Given Documented By: Admin: 03/06/22 12:17 Dose: 1 units Documented By: ELEAZAR Co-signed By: Admin: 03/06/22 06:06 Dose: Not Given Documented By: KAYLEIGH Co-signed By: KAREEM Admin: 03/06/22 00:17 Dose: 1 units Documented By: KAYLEIGH Co-signed By: STACIA Admin: 03/05/22 18:27 Dose: 1 units Documented By: AYDE Co-signed By: Admin: 03/05/22 12:13 Dose: 1 units Documented By: AYDE Co-signed By: Admin: 03/05/22 06:07 Dose: Not Given Documented By: Admin: 03/04/22 22:41 Dose: Not Given Documented By: Admin: 03/04/22 18:15 Dose: 1 units Documented By: ONELIA Co-signed By: PARADISE Admin: 03/04/22 11:33 Dose: 1 units Documented By: ONELIA Co-signed By: PARADISE Admin: 03/04/22 06:46 Dose: Not Given Documented By: JUN Lansoprazole (Lansoprazole 15 Mg Soltab) 15 mg NG QAM STEPH Stop: 04/08/22 08:59 Last Admin: 03/10/22 09:53 Dose: Not Given Documented By: Admin: 03/09/22 09:42 Dose: 15 mg Documented By: TOBI Levothyroxine Sodium (Levothyroxine Sodium 50 Mcg Tablet) 50 mcg NG DAILYBB [facility] Stop: 04/08/22 06:29 Last Admin: 03/10/22 06:09 Dose: Not Given Documented By: Admin: 03/09/22 05:23 Dose: 50 mcg Documented By: AURELIANO Lisinopril (Lisinopril 40 Mg Tab) 40 mg PO QAM [facility] Stop: 04/08/22 08:59 Last Admin: 03/10/22 09:53 Dose: Not Given Documented By: Admin: 03/09/22 09:41 Dose: 40 mg Documented By: TOBI Miscellaneous (Order Awaiting Action) 1 each N/A QS [facility] Stop: 04/01/22 15:59 Last Admin: 03/10/22 15:50 Dose: Not Given Documented By: Admin: 03/10/22 07:47 Dose: Not Given Documented By: Admin: 03/10/22 00:00 Dose: Not Given Documented By: Admin: 03/09/22 15:10 Dose: Not Given Documented By: Admin: 03/09/22 08:17 Dose: Not Given Documented By: Admin: 03/09/22 00:00 Dose: Not Given Documented By: Admin: 03/08/22 16:22 Dose: Not Given Documented By: Admin: 03/08/22 09:02 Dose: Not Given Documented By: Admin: 03/07/22 21:30 Dose: Not Given Documented By: Admin: 03/07/22 14:19 Dose: Not Given Documented By: Admin: 03/07/22 08:24 Dose: Not Given Documented By: Admin: 03/07/22 00:18 Dose: 1 each Documented By: Admin: 03/06/22 16:55 Dose: Not Given Documented By: Admin: 03/06/22 07:42 Dose: Not Given Documented By: Admin: 03/06/22 00:23 Dose: 1 each Documented By: Admin: 03/05/22 14:03 Dose: Not Given Documented By: Admin: 03/05/22 06:53 Dose: Not Given Documented By: Admin: 03/04/22 22:48 Dose: Not Given Documented By: Admin: 03/04/22 15:12 Dose: Not Given Documented By: Admin: 03/04/22 06:52 Dose: Not Given Documented By: Admin: 03/03/22 23:06 Dose: Not Given Documented By: Admin: 03/03/22 15:11 Dose: Not Given Documented By: Admin: 03/03/22 07:52 Dose: 1 each Documented By: Admin: 03/02/22 23:06 Dose: Not Given Documented By: Admin: 03/02/22 16:14 Dose: 1 each Documented By: DONNIE Ofloxacin (Ofloxacin 0.3% 75 Drops/5 Ml Btl) 4 drops OTB BID STEPH Stop: 03/15/22 13:24 Last Admin: 03/10/22 21:32 Dose: 4 drops Documented By: Admin: 03/10/22 08:04 Dose: 4 drops Documented By: Admin: 03/09/22 21:21 Dose: 4 drops Documented By: Admin: 03/09/22 09:43 Dose: 4 drops Documented By: Admin: 03/08/22 21:21 Dose: 4 drops Documented By: Admin: 03/08/22 10:08 Dose: 4 drops Documented By: Admin: 03/07/22 20:23 Dose: 4 drops Documented By: Admin: 03/07/22 08:22 Dose: 4 drops Documented By: Admin: 03/06/22 21:25 Dose: 4 drops Documented By: Admin: 03/06/22 08:11 Dose: 4 drops Documented By: Admin: 03/05/22 21:07 Dose: 4 drops Documented By: Admin: 03/05/22 14:01 Dose: 4 drops Documented By: AYDE Polyethylene Glycol (Polyethylene (Miralax) 17 Gm Pack) 17 gm NG DAILY STEPH Stop: 04/08/22 08:59 Last Admin: 03/10/22 09:53 Dose: Not Given Documented By: Admin: 03/09/22 09:42 Dose: 17 gm Documented By: TOBI Pregabalin (Pregabalin 100 Mg Cap) 100 mg PO TID STEPH Stop: 04/01/22 14:39 Last Admin: 03/10/22 21:29 Dose: Not Given Documented By: Admin: 03/10/22 14:39 Dose: Not Given Documented By: Admin: 03/10/22 09:53 Dose: Not Given Documented By: Admin: 03/09/22 21:20 Dose: Not Given Documented By: Admin: 03/09/22 16:42 Dose: Not Given Documented By: Admin: 03/09/22 10:16 Dose: 100 mg Documented By: Admin: 03/08/22 21:24 Dose: 100 mg Documented By: Admin: 03/05/22 12:28 Dose: Not Given Documented By: Admin: 03/05/22 06:55 Dose: Not Given Documented By: Admin: 03/04/22 19:26 Dose: Not Given Documented By: Admin: 03/04/22 13:04 Dose: Not Given Documented By: Admin: 03/04/22 07:31 Dose: Not Given Documented By: Admin: 03/03/22 19:28 Dose: Not Given Documented By: Admin: 03/03/22 14:03 Dose: Not Given Documented By: Admin: 03/03/22 10:04 Dose: Not Given Documented By: Admin: 03/02/22 19:27 Dose: Not Given Documented By: Admin: 03/02/22 15:41 Dose: Not Given Documented By: SUB Sodium Chloride (Sodium Chloride 0.65% Na Soln 45 Ml ([place])) 2 sprays NA [id number] STEPH Stop: 04/08/22 15:59 Last Admin: 03/10/22 15:51 Dose: 2 sprays Documented By: Admin: 03/10/22 12:38 Dose: 2 sprays Documented By: Admin: 03/10/22 10:25 Dose: 2 sprays Documented By: Admin: 03/10/22 07:54 Dose: 2 sprays Documented By: Admin: 03/09/22 16:55 Dose: 2 sprays Documented By: CG Sterile Water (Tube Feeding Water Flush) 100 ml NG Q4H STEPH Stop: 04/07/22 17:59 Last Admin: 03/10/22 21:30 Dose: Not Given Documented By: Admin: 03/10/22 17:49 Dose: Not Given Documented By: Admin: 03/10/22 14:39 Dose: Not Given Documented By: Admin: 03/10/22 10:22 Dose: Not Given Documented By: Admin: 03/10/22 06:08 Dose: Not Given Documented By: Admin: 03/10/22 02:00 Dose: Not Given Documented By: Admin: 03/09/22 21:20 Dose: Not Given Documented By: Admin: 03/09/22 18:20 Dose: Not Given Documented By: Admin: 03/09/22 16:43 Dose: Not Given Documented By: Admin: 03/09/22 10:17 Dose: 100 ml Documented By: Admin: 03/09/22 05:54 Dose: 100 ml Documented By: Admin: 03/09/22 02:06 Dose: 100 ml Documented By: Admin: 03/08/22 21:36 Dose: 100 ml Documented By: Admin: 03/08/22 18:41 Dose: 100 ml Documented By: PAULO Tamsulosin HCl (Tamsulosin Hcl 0.4 Mg Cap) 0.4 mg NG HS STEPH Stop: 04/07/22 20:59 Last Admin: 03/10/22 21:30 Dose: Not Given Documented By: Admin: 03/09/22 21:20 Dose: Not Given Documented By: Admin: 03/08/22 21:22 Dose: 0.4 mg Documented By: AURELIANO Discontinued Medications Aspirin (Aspirin 300 Mg Supp) 300 mg RI ONE STEPH Stop: 04/02/22 09:59 Last Admin: 03/04/22 09:53 Dose: 300 mg Documented By: Admin: 03/03/22 10:31 Dose: 300 mg Documented By: DONNIE Aspirin (Aspirin 300 Mg Supp) 300 mg RI DAILY STE[facility] Stop: 04/04/22 08:59 Last Admin: 03/08/22 10:08 Dose: 300 mg Documented By: Admin: 03/07/22 08:22 Dose: 300 mg Documented By: Admin: 03/06/22 08:10 Dose: 300 mg Documented By: Admin: 03/05/22 10:12 Dose: 300 mg Documented By: KGY Aspirin (Aspirin 81 Mg Chew) 81 mg NG QAM [facility] Stop: 04/08/22 08:59 Last Admin: 03/09/22 09:41 Dose: 81 mg Documented By: TOBI Atorvastatin Calcium (Atorvastatin 40 Mg Tab) 80 mg PO [facility] Stop: 04/01/22 20:59 Last Admin: 03/04/22 19:18 Dose: Not Given Documented By: Admin: 03/03/22 19:27 Dose: Not Given Documented By: Admin: 03/02/22 19:26 Dose: Not Given Documented By: CP Bacitracin (Bacitracin Oint 15 Gm Tube) Confirm Administered Dose 45 appln .ROUTE .STK-MED ONE Stop: 03/08/22 13:01 Last Admin: 03/08/22 16:20 Dose: Not Given Documented By: MM Carbidopa/Levodopa (Carbidopa/Levodopa 25/100mg Tab) 0.5 tab PO TID [facility] Stop: 04/01/22 14:39 Last Admin: 03/05/22 12:13 Dose: Not Given Documented By: Admin: 03/05/22 06:54 Dose: Not Given Documented By: Admin: 03/04/22 19:18 Dose: Not Given Documented By: Admin: 03/04/22 13:04 Dose: Not Given Documented By: Admin: 03/04/22 07:30 Dose: Not Given Documented By: Admin: 03/03/22 19:28 Dose: Not Given Documented By: Admin: 03/03/22 14:03 Dose: Not Given Documented By: Admin: 03/03/22 10:03 Dose: Not Given Documented By: Admin: 03/02/22 19:26 Dose: Not Given Documented By: Admin: 03/02/22 15:40 Dose: Not Given Documented By: SUB Clopidogrel Bisulfate (Clopidogrel Bisulfate 75 Mg Tab) 75 mg PO NOW ONE Stop: 03/02/22 13:01 Last Admin: 03/02/22 15:40 Dose: Not Given Documented By: SUB Clopidogrel Bisulfate (Clopidogrel Bisulfate 75 Mg Tab) 75 mg PO [facility] Stop: 04/02/22 08:59 Last Admin: 03/03/22 10:03 Dose: Not Given Documented By: SUB Sterile Water 10 ml/ (Tetracaine 0.4 gm) 0 ml TOP ONE ONE Stop: 03/08/22 08:32 Last Admin: 03/08/22 16:20 Dose: Not Given Documented By: MM Cyanocobalamin (Cyanocobalamin (B-12) 500 Mcg Tablet) 1,000 mcg PO DAILY [facility] Stop: 04/02/22 08:59 Last Admin: 03/05/22 06:54 Dose: Not Given Documented By: Admin: 03/04/22 07:30 Dose: Not Given Documented By: Admin: 03/03/22 10:04 Dose: Not Given Documented By: DONNIE Docusate Sodium (Docusate Sodium 100 Mg Cap) 100 mg PO BID [facility] Stop: 04/01/22 20:59 Last Admin: 03/05/22 06:54 Dose: Not Given Documented By: Admin: 03/04/22 19:18 Dose: Not Given Documented By: Admin: 03/04/22 07:30 Dose: Not Given Documented By: Admin: 03/03/22 19:28 Dose: Not Given Documented By: Admin: 03/03/22 10:04 Dose: Not Given Documented By: Admin: 03/02/22 19:26 Dose: Not Given Documented By: CP Duloxetine HCl (Duloxetine Hcl 30 Mg Cap) [facility] [place]: 04/02/22 08:59 Last Admin: 03/09/22 10:30 Dose: 30 mg Documented By: Admin: 03/05/22 06:54 Dose: Not Given Documented By: KGVazquez Admin: 03/04/22 07:30 Dose: Not Given Documented By: Admin: 03/03/22 10:04 Dose: Not Given Documented By: DONNIE Epinephrine HCl (Epinephrine Hcl Inj 1 Mg/Ml 1ml Syringe) Confirm Administered Dose 1 mg .ROUTE .STK-MED ONE Stop: 03/08/22 13:03 Last Admin: 03/08/22 16:21 Dose: Not Given Documented By: PAULO Famotidine (Famotidine 20 Mg Tab) 20 mg PO BID [facility] Stop: 04/01/22 20:59 Last Admin: 03/02/22 19:26 Dose: Not Given Documented By: CP Finasteride (Finasteride 5 Mg Tab) 5 mg PO QAM [facility] Stop: 04/02/22 08:59 Last Admin: 03/05/22 06:54 Dose: Not Given Documented By: KGVazquez Admin: 03/04/22 07:30 Dose: Not Given Documented By: Admin: 03/03/22 10:04 Dose: Not Given Documented By: DONNIE Gelatin (Gelatin Sponge 12-7mm) Confirm Administered Dose 1 each .ROUTE .STK-MED ONE Stop: 03/08/22 13:02 Last Admin: 03/08/22 16:20 Dose: Not Given Documented By: PAULO Heparin Sodium/Dextrose (Heparin Iv Adult Wt-Based Low-Dose *No* Bolus Protocol) 1 each IV Q30M STEPH; Protocol Stop: 04/02/22 10:14 Last Admin: 03/03/22 10:51 Dose: Not Given Documented By: DONNIE Hydralazine HCl (Hydralazine Hcl 20 Mg/Ml Vial) 5 mg IV Q8 [facility] Stop: 04/03/22 21:59 Last Admin: 03/08/22 16:16 Dose: 5 mg Documented By: Admin: 03/08/22 05:45 Dose: 5 mg Documented By: Admin: 03/07/22 21:30 Dose: 5 mg Documented By: Admin: 03/07/22 13:18 Dose: 5 mg Documented By: Admin: 03/07/22 06:07 Dose: 5 mg Documented By: Admin: 03/06/22 22:07 Dose: 5 mg Documented By: Admin: 03/06/22 13:39 Dose: 5 mg Documented By: Admin: 03/06/22 05:56 Dose: 5 mg Documented By: Admin: 03/05/22 22:01 Dose: 5 mg Documented By: Admin: 03/05/22 13:35 Dose: 5 mg Documented By: Admin: 03/05/22 06:06 Dose: 5 mg Documented By: Admin: 03/04/22 22:39 Dose: 5 mg Documented By: CP Hydralazine HCl (Hydralazine Hcl 20 Mg/Ml Vial) 5 mg IV Q8 PRN PRN Reason: SBP>180 Stop: 04/03/22 21:59 Last Admin: 03/09/22 23:14 Dose: 5 mg Documented By: AURELIANO Sodium Chloride (Nss 1000ml) 1,000 mls @ 100 mls/hr IV .Q10H STEPH Stop: 04/01/22 12:14 Last Infusion: 03/02/22 19:30 Dose: 0 mls/hr Documented By: Admin: 03/02/22 12:50 Dose: 100 mls/hr Documented By: SLB Lactated Ringer's (Lr) 1,000 mls @ 80 mls/hr IV .[id number] STEPH Stop: 03/03/22 03:09 Last Infusion: 03/03/22 03:22 Dose: 0 mls/hr Documented By: Admin: 03/02/22 15:39 Dose: 80 mls/hr Documented By: SUB Famotidine 20 mg/ Syringe 5 mls @ 2.5 mls/min IV Q12H STEPH Stop: 04/02/22 08:59 Last Admin: 03/08/22 10:08 Dose: 2.5 mls/min Documented By: Admin: 03/07/22 20:26 Dose: 2.5 mls/min Documented By: Admin: 03/07/22 08:22 Dose: 2.5 mls/min Documented By: Admin: 03/06/22 21:42 Dose: 2.5 mls/min Documented By: Admin: 03/06/22 08:11 Dose: 2.5 mls/min Documented By: Admin: 03/05/22 21:06 Dose: 2.5 mls/min Documented By: Admin: 03/05/22 10:12 Dose: 2.5 mls/min Documented By: Admin: 03/04/22 19:38 Dose: 2.5 mls/min Documented By: Admin: 03/04/22 07:40 Dose: 2.5 mls/min Documented By: Admin: 03/03/22 20:02 Dose: 2.5 mls/min Documented By: Admin: 03/03/22 09:59 Dose: 2.5 mls/min Documented By: SUB Sodium Chloride (Nss) 500 mls @ 50 mls/hr IV .Q10H STEPH Stop: 04/02/22 08:44 Last Infusion: 03/06/22 09:42 Dose: 0 mls/hr Documented By: Admin: 03/06/22 08:10 Dose: 50 mls/hr Documented By: Infusion: 03/06/22 01:54 Dose: 50 mls/hr Documented By: Admin: 03/05/22 15:54 Dose: 50 mls/hr Documented By: Infusion: 03/05/22 15:21 Dose: 50 mls/hr Documented By: Admin: 03/05/22 05:21 Dose: 50 mls/hr Documented By: Infusion: 03/05/22 05:21 Dose: 50 mls/hr Documented By: Admin: 03/04/22 19:39 Dose: 50 mls/hr Documented By: Infusion: 03/04/22 19:39 Dose: 50 mls/hr Documented By: Admin: 03/04/22 10:23 Dose: 50 mls/hr Documented By: Infusion: 03/04/22 10:12 Dose: 50 mls/hr Documented By: Admin: 03/04/22 00:12 Dose: 50 mls/hr Documented By: Infusion: 03/04/22 00:12 Dose: 50 mls/hr Documented By: Admin: 03/03/22 15:20 Dose: 50 mls/hr Documented By: Infusion: 03/03/22 15:16 Dose: 0 mls/hr Documented By: Admin: 03/03/22 10:03 Dose: 50 mls/hr Documented By: SUB Pantoprazole Sodium 40 mg/ (Syringe) 10 mls @ 5 mls/min IV DAILY [facility] Stop: 04/02/22 08:59 Last Admin: 03/08/22 10:08 Dose: 5 mls/min Documented By: Admin: 03/07/22 08:21 Dose: 5 mls/min Documented By: Admin: 03/06/22 08:10 Dose: 5 mls/min Documented By: Admin: 03/05/22 10:13 Dose: 5 mls/min Documented By: Admin: 03/04/22 07:41 Dose: 5 mls/min Documented By: Admin: 03/03/22 09:59 Dose: 5 mls/min Documented By: SUB Heparin Sodium/Dextrose (Heparin Sodium/Dextrose) 25,000 units in 500 mls @ 0 mls/hr IV .Q0M STEPH; Protocol Stop: 04/02/22 10:29 Last Titration: 03/05/22 13:53 Dose: 0 units/hr, 0 mls/hr Documented By: KGY Co-signed By: AM Titration: 03/05/22 13:49 Dose: 0 units/hr, 0 mls/hr Documented By: AYDE Co-signed By: MS Titration: 03/05/22 12:29 Dose: 1,000 units/hr, 20 mls/hr Documented By: AYDE Co-signed By: MTR Admin: 03/05/22 11:54 Dose: 1,000 units/hr, 20 mls/hr Documented By: AYDE Co-signed By: Titration: 03/05/22 10:52 Dose: 1,000 units/hr, 20 mls/hr Documented By: AYDE Co-signed By: Admin: 03/04/22 09:52 Dose: 1,000 units/hr, 20 mls/hr Documented By: ONELIA Co-signed By: PARADISE Titration: 03/04/22 09:52 Dose: 1,000 units/hr, 20 mls/hr Documented By: ONELIA Co-signed By: PARADISE Titration: 03/04/22 09:43 Dose: 1,000 units/hr, 20 mls/hr Documented By: ONELIA Co-signed By: PARADISE Admin: 03/03/22 11:16 Dose: 1,000 units/hr, 20 mls/hr Documented By: DONNIE Co-signed By: ONELIA Levothyroxine Sodium 25 mcg/ (Syringe) 1.25 mls @ 2 mls/min IV Q72H STEPH; Protocol Stop: 04/05/22 08:59 Last Admin: 03/06/22 08:11 Dose: 2 mls/min Documented By: ELEAZAR Acetaminophen (Ofirmev) 1,000 mg in 100 mls @ 400 mls/hr IV NOW STA Stop: 03/07/22 18:16 Last Infusion: 03/07/22 18:29 Dose: 0 mls/hr Documented By: Admin: 03/07/22 18:00 Dose: 400 mls/hr Documented By: CA Magnesium Sulfate/Dextrose (Magnesium Sulfate / D5w) 1 gm in 100 mls @ 50 mls/hr IV ONE ONE Stop: 03/09/22 10:38 Last Infusion: 03/09/22 11:57 Dose: 0 mls/hr Documented By: Admin: 03/09/22 09:39 Dose: 50 mls/hr Documented By: CG Magnesium Sulfate/Dextrose (Magnesium Sulfate / D5w) 1 gm in 100 mls @ 50 mls/hr IV ONE ONE Stop: 03/10/22 10:09 Last Infusion: 03/10/22 12:24 Dose: 0 mls/hr Documented By: Admin: 03/10/22 10:22 Dose: 50 mls/hr Documented By: CG Potassium Chloride (K Solitario / Wtr) 10 meq in 100 mls @ 100 mls/hr IV Q1H STEPH; Protocol Stop: 03/10/22 10:14 Last Infusion: 03/10/22 11:51 Dose: 0 mls/hr Documented By: Admin: 03/10/22 10:21 Dose: 100 mls/hr Documented By: Infusion: 03/10/22 10:17 Dose: 100 mls/hr Documented By: Admin: 03/10/22 09:17 Dose: 100 mls/hr Documented By: CG Insulin Aspart (Insulin Aspart Per Unit) 0 units SC ACHS [facility] Stop: 04/01/22 20:59 Last Admin: 03/03/22 20:39 Dose: Not Given Documented By: Admin: 03/03/22 16:44 Dose: Not Given Documented By: Admin: 03/03/22 12:29 Dose: Not Given Documented By: Admin: 03/03/22 07:43 Dose: Not Given Documented By: Admin: 03/02/22 20:59 Dose: 1 units Documented By: CP Co-signed By: JOE Insulin Glargine (Lantus Per Unit Charge) 11 units SQ BID [facility] Stop: 04/01/22 20:59 Last Admin: 03/02/22 20:58 Dose: 11 units Documented By: CP Co-signed By: JOE Ioversol (Optiray 320 125ml) 120 ml IV ONCE ONE Stop: 03/02/22 11:22 Last Admin: 03/02/22 11:22 Dose: 120 ml Documented By: MORGAN Levothyroxine Sodium (Levothyroxine Sodium 50 Mcg Tablet) 50 mcg PO QAM [facility] Stop: 04/02/22 08:59 Last Admin: 03/05/22 07:14 Dose: Not Given Documented By: Admin: 03/04/22 07:30 Dose: Not Given Documented By: Admin: 03/03/22 10:04 Dose: Not Given Documented By: DONNIE Lidocaine HCl (Lidocaine 4% Inh Soln 4 Ml Btl) Confirm Administered Dose 4 ml .ROUTE .STK-MED ONE Stop: 03/08/22 13:02 Last Admin: 03/08/22 16:21 Dose: Not Given Documented By: PAULO Lidocaine/Epinephrine (Lidocaine 2%/Epinephrine 1:100,000 20ml) Confirm Administered Dose 20 ml .ROUTE .STK-MED ONE Stop: 03/08/22 13:02 Last Admin: 03/08/22 16:20 Dose: Not Given Documented By: PAULO Magnesium Oxide (Magnesium Oxide 400 Mg Tab) 400 mg PO BID [facility] Stop: 04/01/22 20:59 Last Admin: 03/05/22 06:55 Dose: Not Given Documented By: Admin: 03/04/22 19:18 Dose: Not Given Documented By: Admin: 03/04/22 07:30 Dose: Not Given Documented By: Admin: 03/03/22 19:28 Dose: Not Given Documented By: Admin: 03/03/22 10:04 Dose: Not Given Documented By: Admin: 03/02/22 19:27 Dose: Not Given Documented By: JUN Metoprolol Tartrate (Metoprolol Tartrate 1 Mg/Ml Vial) 5 mg IV Q6 [facility] Stop: 04/03/22 12:14 Last Admin: 03/08/22 11:44 Dose: 5 mg Documented By: Admin: 03/08/22 05:45 Dose: 5 mg Documented By: Admin: 03/08/22 00:28 Dose: 5 mg Documented By: Admin: 03/07/22 18:26 Dose: 5 mg Documented By: Admin: 03/07/22 13:18 Dose: 5 mg Documented By: Admin: 03/07/22 06:07 Dose: 5 mg Documented By: Admin: 03/07/22 00:06 Dose: 5 mg Documented By: Admin: 03/06/22 18:05 Dose: 5 mg Documented By: Admin: 03/06/22 13:40 Dose: 5 mg Documented By: Admin: 03/06/22 05:56 Dose: 5 mg Documented By: Admin: 03/06/22 00:13 Dose: 5 mg Documented By: Admin: 03/05/22 18:21 Dose: 5 mg Documented By: Admin: 03/05/22 11:56 Dose: 5 mg Documented By: Admin: 03/05/22 06:07 Dose: 5 mg Documented By: Admin: 03/05/22 00:02 Dose: 5 mg Documented By: Admin: 03/04/22 18:03 Dose: 5 mg Documented By: Admin: 03/04/22 12:44 Dose: 5 mg Documented By: ONELIA Metoprolol Tartrate (Metoprolol Tartrate 1 Mg/Ml Vial) 2.5 mg IV NOW STA Stop: 03/04/22 20:08 Last Admin: 03/04/22 20:30 Dose: 2.5 mg Documented By: JUN Miscellaneous (Order Awaiting Action) 1 each N/A QS [facility] Stop: 04/01/22 15:59 Last Admin: 03/03/22 07:52 Dose: 1 each Documented By: Admin: 03/02/22 23:05 Dose: Not Given Documented By: Admin: 03/02/22 16:13 Dose: 1 each Documented By: DONNIE Miscellaneous (Patient's Height &/Or Weight Needed) 1 each N/A Q2H STE[facility] Stop: 04/01/22 16:59 Last Admin: 03/02/22 19:28 Dose: 1 each Documented By: Admin: 03/02/22 17:13 Dose: 1 each Documented By: Admin: 03/02/22 17:12 Dose: 1 each Documented By: DONNIE Non-Formulary Patient's Own Med - Ofloxacin 0.3% 5 each OT BID [facility] Stop: 04/02/22 11:44 Last Admin: 03/05/22 06:55 Dose: Not Given Documented By: Admin: 03/04/22 19:38 Dose: 10 drops Documented By: Admin: 03/04/22 07:31 Dose: 10 drops Documented By: Admin: 03/03/22 20:04 Dose: 10 drops Documented By: Admin: 03/03/22 14:07 Dose: 10 drops Documented By: DONNIE Oxymetazoline HCl (Oxymetazoline 0.05% 30 Ml Btl) 1 sprays NA NOW ONE Stop: 03/05/22 13:25 Last Admin: 03/05/22 14:01 Dose: 1 sprays Documented By: KGY Oxymetazoline HCl (Oxymetazoline 0.05% 30 Ml Btl) Confirm Administered Dose 150 sprays .ROUTE .STK-MED ONE Stop: 03/08/22 13:39 Last Admin: 03/08/22 16:21 Dose: Not Given Documented By: MM Pneumococcal Polyvalent Vaccine (Pneumococcal Polysaccharides 25 Mcg/0.5 Ml Vial/Syr) 25 mcg IM .ONCE ONE Stop: 03/03/22 09:01 Last Admin: 03/03/22 10:17 Dose: Not Given Documented By: DONNIE Potassium Chloride (Potassium Chloride 20 Meq/15 Ml Udc) 40 meq PO NOW STA Stop: 03/09/22 08:48 Last Admin: 03/09/22 09:39 Dose: 40 meq Documented By: TOBI Triamcinolone Acetonide (Triamcinolone Acet 40 Mg/Ml Vial) Confirm Administered Dose 40 mg .ROUTE .STK-MED ONE Stop: 03/08/22 13:02 Last Admin: 03/08/22 16:21 Dose: Not Given Documented By: PAULO Imaging Data Radiologist's Impression: Head CT 03/02/22 11:[address] DOSE: HISTORY: Stroke Like Symptoms TECHNIQUE: Multiaxial CT images of the head were performed without the use of intravenous contrast. Automated exposure control was utilized for this study. A dose lowering technique was utilized adhering to the principles of ALARA. Comparison: Head CT 08/10/2021. Sinus CT 02/08/2022. Findings: Fluid levels within the right frontal sinus and bilateral maxillary sinuses most pronounced on the left. The fluid levels appear hyperdense. There is near complete opacification of the left nasal cavity due to the previous identified nasal polyp/lesion. There is near-complete opacification of the ethmoid air cells and bilateral mastoid air cells. The calvarium and skull base are intact. There is no mass, hematoma, midline shift, acute infarct. White matter hypodensity is nonspecific but suggestive of microvascular ischemic change. The ventricles and sulci demonstrate mild age-related involutional changes. 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 These remain unchanged. Impression: 1. No acute infarct or intracranial hemorrhage. 2. Old infarcts as described above remain unchanged. 3. Acute on chronic paranasal sinusitis with hyperdense secretions which could represent inspissated secretions or blood products. 4. Opacified left nasal cavity have likely corresponding to the patient's known left nasal polyp/lesion. Follow-up nonemergent ENT consultation recommended. 5. Chronic bilateral mastoid effusions again noted. ACT 112: Negative or not required by law. Electronically signed by: Guy Burdick M.D. 03/02/2022 11:22 AM Head CTA 03/02/22 11:08 HEAD & NECK CTA HISTORY: Stroke Like Symptoms TECHNIQUE: Multiaxial CT images of the head were performed following the intravenous administration of contrast to evaluate the major cerebral vessels. Multiaxial CT images of the neck were also performed following the intravenous administration of contrast to evaluate the major cervical vessels. Maximum intensity projection images were also obtained. A dose lowering technique was utilized adhering to the principles of ALARA. COMPARISON: Head and neck CTA 05/04/2021. FINDINGS: There is no mass, hematoma, midline shift, or acute infarct. Dominant right vertebral artery with unchanged moderate narrowing of the right proximal V1 segment. Developmentally diminutive left vertebral artery which terminates into the PICA. The bilateral vertebral arteries are patent. Patent basilar artery. Unchanged multifocal areas of high-grade stenosis are noted throughout the P1 and P2 segments of the posterior cerebral arteries. Cerebral venous sinuses are patent. There is no abnormal intracranial enhancement. Blood products within the paranasal sinuses suggesting recent postoperative change. Moderate atherosclerosis of the thoracic aortic arch. Patency of the innominate and imaged subclavian arteries. The common carotid arteries are widely patent. The visualized internal carotid arteries are patent. Mild to moderate multifocal luminal narrowing of the middle and anterior cerebral arteries redemonstrated. Unchanged focal area of high-grade stenosis involves the A2 segment of the left anterior cerebral artery with multifocal areas of high-grade stenosis involving the A2 segment of the right anterior cerebral artery again noted. Degenerative changes of the spine. Sternotomy changes. Right paratracheal kd nopathy with lymph nodes measuring up to 11 mm, similar to comparison. Lung apices are clear. Unremarkable soft tissues. Medial deviation of the right vocal cord again noted. IMPRESSION: 1. 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 2. Moderate atherosclerosis of the carotid bulbs without significant stenosis. 3. Moderate stenosis of the proximal V1 segment of the right vertebral artery is unchanged. 4. Blood products within the paranasal sinuses likely due to the recent postoperative change. 5. 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 This remains unchanged. ACT 112: Negative or not required by law. Electronically signed by: Guy Budrick M.D. 03/02/2022 11:33 AM Neck CTA 03/02/22 11:08 HEAD & NECK CTA HISTORY: Stroke Like Symptoms TECHNIQUE: Multiaxial CT images of the head were performed following the intravenous administration of contrast to evaluate the major cerebral vessels. Multiaxial CT images of the neck were also performed following the intravenous administration of contrast to evaluate the major cervical vessels. Maximum intensity projection images were also obtained. A dose lowering technique was utilized adhering to the principles of ALARA. COMPARISON: Head and neck CTA 05/04/2021. FINDINGS: There is no mass, hematoma, midline shift, or acute infarct. Dominant right vertebral artery with unchanged moderate narrowing of the right proximal V1 segment. Developmentally diminutive left vertebral artery which terminates into the PICA. The bilateral vertebral arteries are patent. Patent basilar artery. Unchanged multifocal areas of high-grade stenosis are noted throughout the P1 and P2 segments of the posterior cerebral arteries. Cerebral venous sinuses are patent. There is no abnormal intracranial enhancement. Blood products within the paranasal sinuses suggesting recent postoperative change. Moderate atherosclerosis of the thoracic aortic arch. Patency of the innominate and imaged subclavian arteries. The common carotid arteries are widely patent. The visualized internal carotid arteries are patent. Mild to moderate multifocal luminal narrowing of the middle and anterior cerebral arteries redemonstrated. Unchanged focal area of high-grade stenosis involves the A2 segment of the left anterior cerebral artery with multifocal areas of high-grade stenosis involving the A2 segment of the right anterior cerebral artery again noted. Degenerative changes of the spine. Sternotomy changes. Right paratracheal adenopathy with lymph nodes measuring up to 11 mm, similar to comparison. Lung apices are clear. Unremarkable soft tissues. Medial deviation of the right vocal cord again noted. IMPRESSION: 1. 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 2. Moderate atherosclerosis of the carotid bulbs without significant stenosis. 3. Moderate stenosis of the proximal V1 segment of the right vertebral artery is unchanged. 4. Blood products within the paranasal sinuses likely due to the recent postoperative change. 5. 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 This remains unchanged. ACT 112: Negative or not required by law. Electronically signed by: Guy Burdick M.D. 03/02/2022 11:33 AM Brain MRI 03/02/22 12:58 Brain MRI WITHOUT CONTRAST HISTORY: Confusion. Left-sided weakness. left sided weakness, CVA TECHNIQUE: Multiplanar multisequence MRI of the brain was performed without the use of contrast. COMPARISON STUDY: Head CT 03/02/2022. FINDINGS: There is a 12 mm focus of restricted diffusion within the left basal ganglia/posterior limb of the left internal capsule consistent with an acute infarct. The midline structures are intact. The there is no intracranial hemorrhage or midline shift. No intracranial mass identified. Focal area of encephalomalacia within the right anterior temporal lobe remains unchanged. The major vascular flow-voids at the skull base are well-maintained. Atrophy and microvascular ischemic changes are noted. 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 Evidence for prior bilateral lens replacement. Fluid levels/hemorrhage noted within the paranasal sinuses. This likely corresponds to the recent sinus surgery. There are bilateral mastoid effusions which appear to be chronic. IMPRESSION: 1. A 12 mm acute infarct within the left basal ganglia/posterior limb of the left internal capsule. 2. Atrophy and microvascular ischemic changes. 3. Fluid levels/hemorrhage within the paranasal sinuses likely representing the patient's recent sinus surgery ACT 112: Negative or not required by law. Electronically signed by: Guy Burdick M.D. 03/02/2022 2:32 PM Orbit X-Ray 03/02/22 12:58 ORBIT RADIOGRAPHS 3 VIEWS HISTORY: pre-MRI screening. COMPARISON: Orbit radiograph 01/12/2019. FINDINGS: There are no radiopaque foreign bodies identified within the orbits. Stable metallic suture within the right lateral orbital wall. There is a punctate metallic density within the left upper lip which is also unchanged. IMPRESSION: 1. No radiopaque foreign bodies identified within the orbits. 2. Stable metallic suture within the right lateral orbital wall. ACT 112: Negative or not required by law. Electronically signed by: Guy Burdick M.D. 03/02/2022 1:42 PM Blood Pressure Blood Pressure Findings: Elevated blood pressure Blood Pressure Disposition: further management by hospitalist Discharge Plan Visit Data Chief Complaint: Stroke/CVA Symptoms Stated Complaint: STROKE SX ED Provider: Mireya Arthur Discharge Problem: Acute CVA (cerebrovascular accident), S/P sinus surgery, S/P tube myringotomy Patient Disposition: Admitted As Inpatient Discharge Instructions Interventions: ED Discharge Assessment Last Done: 03/02/22 14:29
[2022-03-03 18:31] LABS: Partial Thromboplastin Ratio 1.8
[2022-03-03 19:15] LABS: Partial Thromboplastin Time 48.4 Seconds (21.0-31.0)
[2022-03-03] MEDS: ATORVASTATIN 40 MG TAB PO SCH (19:27)
[2022-03-04] MEDS: SODIUM CHLORIDE 0.9% 500 ML IV SCH ×3 (00:12→19:39)
[2022-03-04] MEDS ORDERED: Nursing to Pharmacy Communication SCH (00:15)
[2022-03-04] MEDS: INSULIN ASPART PER UNIT SC SCH ×4 (06:46→22:41)
[2022-03-04] MEDS: DULoxetine HCL 30 MG CAP PO SCH (07:30)
[2022-03-04] MEDS: CARBIDOPA/LEVODOPA 25/100MG TAB PO SCH ×3 (07:30→19:18)
[2022-03-04] MEDS: CYANOCOBALAMIN (B-12) 500 MCG TABLET PO SCH (07:30)
[2022-03-04] MEDS: FINASTERIDE 5 MG TAB PO SCH (07:30)
[2022-03-04] MEDS: DOCUSATE SODIUM 100 MG CAP PO SCH ×2 (07:30→19:18)
[2022-03-04] MEDS: MAGNESIUM OXIDE 400 MG TAB PO SCH ×2 (07:30→19:18)
[2022-03-04] MEDS: LEVOTHYROXINE SODIUM 50 MCG TABLET PO SCH (07:30)
[2022-03-04] MEDS: OFLOXACIN 0.3% OT SCH ×2 (07:31→19:38)
[2022-03-04] MEDS: PREGABALIN 100 MG CAP PO SCH ×3 (07:31→19:26)
[2022-03-04] MEDS: FAMOTIDINE 20 MG in SYRINGE 3 ML IV SCH ×2 (07:40→19:38)
[2022-03-04] MEDS: PANTOprazole 40 MG in SYRINGE 0 ML IV SCH (07:41)
[2022-03-04 08:25] LABS: Estimated Average Glucose 146 mg/dl; Hemoglobin A1C 6.7 % (4.5-5.6)
[2022-03-04 09:30] LABS: Basophils # (auto) 0.03 K/uL (0-0.2); Basophils % (auto) 0.4 %; Eosinophils # (auto) 0.05 K/uL (0-0.50); Eosinophils % (auto) 0.7 %; Hematocrit (blood only) 38.9 % (40.1-51.0); Hemoglobin 12.9 g/dl (14.0-18.0); Immature Granulocytes # (auto) 0.03 K/uL (0.00-0.02); Immature Granulocytes % (auto) 0.4 %; Lymphocytes # (auto) 1.02 K/uL (1.2-3.4); Mean Corpuscular Hemoglobin 30.4 pg (25.0-34.0); Mean Corpuscular Hgb Conc 33.2 g/dL (32.0-36.0); Mean Corpuscular Volume 91.7 fL (80.0-100.0); Mean Platelet Volume 11.8 fL (9.4-12.4); Monocytes # (auto) 0.68 K/uL (0.24-0.82); Neutrophils # (auto) 4.97 K/uL (1.4-6.5); Neutrophils % (auto) 73.5 %; Platelet Count 100 K/uL (130-400); RDW Coefficient of Variation 13.8 % (11.5-14.5); RDW Standard Deviation 46.4 fL (36.4-46.3); Red Blood Count 4.24 M/uL (4.63-6.08); White Blood Count 6.78 K/ul (4.8-10.8)
[2022-03-04 09:31] LABS: INR 1.1 (0.9-1.1); Prothrombin Time 11.3 Seconds (9.0-12.0)
[2022-03-04 09:32] LABS: Partial Thromboplastin Time 55.5 Seconds (21.0-31.0)
[2022-03-04 09:38] LABS: Albumin Globulin Ratio 1.3 (0.9-2); Albumin Level 3.7 gm/dl (3.4-5.0); BUN Creatinine Ratio 23.4 (10-20); Bilirubin,Total 0.8 mg/dl (0.2-1.0); Calcium 9.2 mg/dl (8.5-10.1); Creatinine Clr Calc Pharmacy 50.9 ml/min; Est GFR (African American) 60.6 ml/min; Est GFR (Non-African American) 52.3 ml/min; Globulin 2.9 gm/dl (2.5-4.0); Magnesium 2.2 mg/dl (1.7-2.4); Phosphorus 2.8 mg/dl (2.5-4.9); Potassium 4.3 mmol/L (3.5-5.1); Total Protein 6.6 gm/dl (6.0-8.3)
[2022-03-04] MEDS: HEPARIN SODIUM/DEXTROSE 25,000 UNITS/500 ML BAG IV SCH (09:52)
[2022-03-04] MEDS: ASPIRIN 300 MG SUPP PR SCH (09:53)
[2022-03-04 09:55] LABS: iSTAT Hemoglobin 13.6 g/dl (14.0-18.0); iSTAT Ionized Calcium 1.18 mmol/l (1.12-1.32); iSTAT Potassium 5.2 mmol/L (3.3-5.0)
[2022-03-04] MEDS: METOPROLOL TARTRATE 1 MG/ML VIAL IV SCH ×2 (12:44→18:03)
[2022-03-04] MEDS ORDERED: FUROSEMIDE 40 MG TAB PO SCH (14:00)
[2022-03-04] MEDS: ATORVASTATIN 40 MG TAB PO SCH (19:18)
[2022-03-04] MEDS ORDERED: METOPROLOL TARTRATE 1 MG/ML VIAL IV STA (20:07)
--- NOTE | 2022-03-04 21:36 | Hospitalist Progress Note ---
Date of Service March 04, 2022 Assessment & Plan (1) Stroke: Plan: Left basal ganglia/posterior limb of internal capsule. Thrombotic (off plavix recently) vs embolic etiology both possible (known aalmaz, was off Eliquis for his recent sinus surgery). Appreciate neurology consult. Appreciate PT, OT, speech. Dense aphasia, right arm weakness. Has had prior strokes in the past. Failed bedside swallow two days in a row. Keep NPO until video swallow is completed on 03/05/22. For stroke prevention - cont heparin drip in tim of Eliquis. Cont daily rectal aspirin in tim of PO Plavix. Care plan truly hinges on his video swallow results. (2) Status post myringotomy with tube placement of both ears: Plan: 03/01/22 - s/p Bilateral Myringotomy and Tube Insertion, Image guided bilateral endoscopic sinus surgery with bilateral frontal, total ethmoid, and maxillary sinus antrostomies Dr Ge surgery performed due to chronic sinus issues/sinusitis, polyps, chronic OME b/l, etc. Dr Ge is aware of pt's admission Prior hospitalist attending discussed placing patient on heparin - ENT felt acceptable to do so; blood in sinuses seen on recent imaging likely OLD from his surgery no major epistaxis since admission occasional hemoptysis but small volume (3) S/P nasal polypectomy: Plan: 03/01/22 Dr Ge (4) Atrial fibrillation: Plan: permanent / stable IV metoprolol mainly for BP control Heparin drip in tim of Eliquis (5) Coronary artery disease: Plan: no ischemic symptoms Resume statin/plavix if he passes swallow study (6) Stage III chronic kidney disease: Plan: lasix on hold BMPs stable BMP in am (7) DM type 2 (diabetes mellitus, type 2): Plan: controlled cont novolog SSI HbA1C 6.7% (8) HTN (hypertension): Plan: BPs were allowed to be permissively high early in stay now start to control BP start metoprolol IV 5mg q6h if additional BP control is needed then start hydralazine 5mg IV q8h would be satisfied with SBP of 150-160 (9) Hypothyroid: Plan: Resume levothyroxine 50 mcg daily when able / allowed to take PO most recent TSH wnl (2.3 in 09/2021) (10) Hyperlipidemia: Plan: resume statin when able to take PO (11) GERD (gastroesophageal reflux disease): Plan: Continue Pepcid and Protonix IV (12) Memory impairment: Plan: 2nd to vascular disease h/o Parkinsonism resume Sinemet 0.5 mg TID when able to take PO (13) BPH (benign prostatic hyperplasia): Plan: resume finasteride when able (14) Thrombocytopenia: Plan: chronic, typically runs low 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 cbc in am for stability (15) Depression: Plan: resume Cymbalta for depression/neuropathy when able (16) B12 deficiency: Plan: resolved b12 level >1000 (17) Dysphagia: Plan: known issue at baseline multiple etiologies - prior CVAs, esophageal stenosis (required dilation 2021), etc He continues to fail his bedside swallows - video swallow in am on Friday appreciate speech assistance Plan son / [id number] updated at bedside questions answered much of his care will be dictated by results of video swallow Admission and Anticipated Discharge Date Admission Date: March 02, 2022 Subjective tele overnight a.fib only patient with occasional coughing up blood but this has improved over the last 48 hours no further epistaxis pt's son and daughter in law present at bedside during my visit patient seen by speech therapy today - video swallow planned for tomorrow pt is demonstrating signs/symptoms of overt aspiration on bedside swallow prior to this admission [facility] during my rounds he smiled a few times but did not speak / no phonation occasionally would move his right arm Review of Systems Review of Systems: Unobtainable due to cognitive status and Other (expressive aphasia ) Physical Exam Physical Exam: gen - resting comfortably, smiling mouth - MM dry, dried old blood in oral cavity nose - no epistaxis neck - no JVD heart - irregularly irregular, s1 s2, 1-2/6 systolic murmur RUSB lungs - CTA b/l abd - mildly distended, BS+, NT ext - no edema, pulses 2+ b/l neuro - right facial droop; expressive aphasia; right arm - strength about 3/5; b/l LEs - no spontaneous movement of either leg; strength LUE 5/5 Results & Data Results & Data ([facility]) Vital Signs (Past 12 Hours) Vital Signs Temp Pulse Pulse Resp BP BP BP 03/04/22 21:24 03/04/22 20:30 70 192/119 H 03/04/22 19:41 36.4 C L 70 18 168/106 H 181/114 H 03/04/22 18:03 74 160/91 H 03/04/22 18:00 74 160/91 H 03/04/22 16:00 71 03/04/22 16:33 36.3 C L 80 20 03/04/22 16:10 136/93 03/04/22 15:11 181/92 H 03/04/22 14:00 03/04/22 14:18 201/115 H 03/04/22 12:44 81 207/99 H 03/04/22 11:49 36.7 C 71 20 208/110 H Pulse Ox Pulse Ox O2 Del Method O2 Del Method 03/04/22 21:24 Room Air 03/04/22 20:30 03/04/22 19:41 95 03/04/22 18:03 03/04/22 18:00 03/04/22 16:00 03/04/22 16:33 98 Room Air 03/04/22 16:10 03/04/22 15:11 03/04/22 14:00 96 Room Air 03/04/22 14:18 03/04/22 12:44 03/04/22 11:49 97 Room Air Laboratory Results Laboratory Results - last 24 hr 03/02/22 03/03/22 03/04/22 11:05 06:38 06:58 WBC RBC Hgb POC Hgb 13.6 L Hct POC Hct 40 L MCV MCH MCHC RDW Std Deviation RDW Coeff of Eben Plt Count MPV Immature Gran % (Auto) Neut % (Auto) Lymph % (Auto) [place] % (Auto) Eos % (Auto) Baso % (Auto) Neut # (Auto) Lymph # (Auto) [place] # (Auto) Eos # (Auto) Baso # (Auto) Immature Gran # (Auto) PT INR APTT PTT Ratio POC Sodium 135 Sodium POC Potassium 5.2 H Potassium POC Chloride 100 L Chloride Carbon Dioxide POC Total CO2 24 Anion Gap POC Anion Gap 17.0 POC BUN 38 H BUN Creatinine POC Creatinine 2.0 H Est Cr Clr Drug Dosing Est GFR ( Amer) Est GFR (Non-Af Amer) BUN/Creatinine Ratio Glucose POC Glucose 132 H POC Glucose (other) 183 H Estimat Average Glucose 146 Hemoglobin A1c 6.7 H Calcium POC Ioniz Calcium [place] 1.18 Phosphorus Magnesium Total Bilirubin AST ALT Alkaline Phosphatase Total Protein Albumin Globulin Albumin/Globulin Ratio Vitamin B12 03/04/22 03/04/22 03/04/22 08:11 08:11 08:11 WBC 6.78 RBC 4.24 L Hgb 12.9 L POC Hgb Hct 38.9 L POC Hct MCV 91.7 MCH 30.4 MCHC 33.2 RDW Std Deviation 46.4 H RDW Coeff of Eben 13.8 Plt Count 100 L MPV 11.8 Immature Gran % (Auto) 0.4 Neut % (Auto) 73.5 Lymph % (Auto) 15.0 [place] % (Auto) 10.0 Eos % (Auto) 0.7 Baso % (Auto) 0.4 Neut # (Auto) 4.97 Lymph # (Auto) 1.02 L [place] # (Auto) 0.68 Eos # (Auto) 0.05 Baso # (Auto) 0.03 Immature Gran # (Auto) 0.03 H PT 11.3 INR 1.1 APTT 55.5 H* PTT Ratio 2.0 POC Sodium Sodium 138 POC Potassium Potassium 4.3 POC Chloride Chloride 108 H Carbon Dioxide 23 POC Total CO2 Anion Gap 7 POC Anion Gap POC BUN BUN 29 H Creatinine 1.24 POC Creatinine Est Cr Clr Drug Dosing 50.9 Est GFR ( Amer) 60.6 Est GFR (Non-Af Amer) 52.3 BUN/Creatinine Ratio 23.4 H Glucose 151 H POC Glucose POC Glucose (other) Estimat Average Glucose Hemoglobin A1c Calcium 9.2 POC Ioniz Calcium [place] Phosphorus 2.8 Magnesium 2.2 Total Bilirubin 0.8 AST 21 ALT 16 Alkaline Phosphatase 52 Total Protein 6.6 Albumin 3.7 Globulin 2.9 Albumin/Globulin Ratio 1.3 Vitamin B12 03/04/22 03/04/22 03/04/22 08:11 11:25 17:57 WBC RBC Hgb POC Hgb Hct POC Hct MCV MCH MCHC RDW Std Deviation RDW Coeff of Eben Plt Count MPV Immature Gran % (Auto) Neut % (Auto) Lymph % (Auto) [place] % (Auto) Eos % (Auto) Baso % (Auto) Neut # (Auto) Lymph # (Auto) [place] # (Auto) Eos # (Auto) Baso # (Auto) Immature Gran # (Auto) PT INR APTT PTT Ratio POC Sodium Sodium POC Potassium Potassium POC Chloride Chloride Carbon Dioxide POC Total CO2 Anion Gap POC Anion Gap POC BUN BUN Creatinine POC Creatinine Est Cr Clr Drug Dosing Est GFR ( Amer) Est GFR (Non-Af Amer) BUN/Creatinine Ratio Glucose POC Glucose 179 H 151 H POC Glucose (other) Estimat Average Glucose Hemoglobin A1c Calcium POC Ioniz Calcium [place] Phosphorus Magnesium Total Bilirubin AST ALT Alkaline Phosphatase Total Protein Albumin Globulin Albumin/Globulin Ratio Vitamin B12 1043 H 03/04/22 20:37 WBC RBC Hgb POC Hgb Hct POC Hct MCV MCH MCHC RDW Std Deviation RDW Coeff of Eben Plt Count MPV Immature Gran % (Auto) Neut % (Auto) Lymph % (Auto) [place] % (Auto) Eos % (Auto) Baso % (Auto) Neut # (Auto) Lymph # (Auto) [place] # (Auto) Eos # (Auto) Baso # (Auto) Immature Gran # (Auto) PT INR APTT PTT Ratio POC Sodium Sodium POC Potassium Potassium POC Chloride Chloride Carbon Dioxide POC Total CO2 Anion Gap POC Anion Gap POC BUN BUN Creatinine POC Creatinine Est Cr Clr Drug Dosing Est GFR ( Amer) Est GFR (Non-Af Amer) BUN/Creatinine Ratio Glucose POC Glucose 135 H POC Glucose (other) Estimat Average Glucose Hemoglobin A1c Calcium POC Ioniz Calcium [place] Phosphorus Magnesium Total Bilirubin AST ALT Alkaline Phosphatase Total Protein Albumin Globulin Albumin/Globulin Ratio Vitamin B12 PG Care Time/CCT Total # of Minutes Spent Total Time Spent with Patient: Total time spent is greater than 50% in coordination of care (as documented) at patient's floor/unit and/or counseling patient: Coding Level of Care Code 00144 Subseq Hosp Care Lvl 3 Diagnoses Stroke I63.9 Status post myringotomy with tube placement of both ears Z96.22 S/P nasal polypectomy Z98.890 Atrial fibrillation I48.21 Atrial fibrillation type: permanent Coronary artery disease I25.10 Stage III chronic kidney disease N18.3 DM type 2 (diabetes mellitus, type 2) E11.9; Z79.4 Diabetes mellitus complication status: without complication Diabetes mellitus medical terminologist insulin use: with shelter use HTN (hypertension) I10 Hypothyroid E03.9 Hypothyroidism type: acquired Hyperlipidemia E78.2 Hyperlipidemia type: mixed hyperlipidemia GERD (gastroesophageal reflux disease) K21.9 Esophagitis presence: esophagitis presence not specified Memory impairment R41.3 BPH (benign prostatic hyperplasia) N40.0 Thrombocytopenia D69.6 Depression F32.9 B12 deficiency E53.8 Dysphagia R13.10 (1) DM type 2 (diabetes mellitus, type 2) Diabetes mellitus complication status: without complication Diabetes mellitus shelter insulin use: with shelter use Qualified Code(s): E11.9 - Type 2 diabetes mellitus without complications; Z79.4 - custodial (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
[2022-03-04] MEDS: hydrALAZINE HCL 20 MG/ML VIAL IV SCH (22:39)
[2022-03-05] MEDS: METOPROLOL TARTRATE 1 MG/ML VIAL IV SCH ×4 (00:02→18:21)
[2022-03-05] MEDS: SODIUM CHLORIDE 0.9% 500 ML IV SCH ×2 (05:21→15:54)
[2022-03-05] MEDS: hydrALAZINE HCL 20 MG/ML VIAL IV SCH ×3 (06:06→22:01)
[2022-03-05] MEDS: INSULIN ASPART PER UNIT SC SCH ×3 (06:07→18:27)
[2022-03-05] MEDS: CYANOCOBALAMIN (B-12) 500 MCG TABLET PO SCH (06:54)
[2022-03-05] MEDS: FINASTERIDE 5 MG TAB PO SCH (06:54)
[2022-03-05] MEDS: DOCUSATE SODIUM 100 MG CAP PO SCH (06:54)
[2022-03-05] MEDS: ASPIRIN 300 MG SUPP PR SCH ×2 (06:54→10:12)
[2022-03-05] MEDS: DULoxetine HCL 30 MG CAP PO SCH (06:54)
[2022-03-05] MEDS: CARBIDOPA/LEVODOPA 25/100MG TAB PO SCH ×2 (06:54→12:13)
[2022-03-05] MEDS: PREGABALIN 100 MG CAP PO SCH ×2 (06:55→12:28)
[2022-03-05] MEDS: MAGNESIUM OXIDE 400 MG TAB PO SCH (06:55)
[2022-03-05] MEDS: OFLOXACIN 0.3% OT SCH (06:55)
[2022-03-05] MEDS: LEVOTHYROXINE SODIUM 50 MCG TABLET PO SCH (07:14)
[2022-03-05] MEDS: FAMOTIDINE 20 MG in SYRINGE 3 ML IV SCH ×2 (10:12→21:06)
[2022-03-05] MEDS: PANTOprazole 40 MG in SYRINGE 0 ML IV SCH (10:13)
[2022-03-05 11:48] LABS: Hematocrit (blood only) 40.5 % (40.1-51.0); Hemoglobin 13.6 g/dl (14.0-18.0); Mean Corpuscular Hemoglobin 30.1 pg (25.0-34.0); Mean Corpuscular Hgb Conc 33.6 g/dL (32.0-36.0); Mean Corpuscular Volume 89.6 fL (80.0-100.0); Mean Platelet Volume 11.4 fL (9.4-12.4); Platelet Count 113 K/uL (130-400); RDW Coefficient of Variation 13.8 % (11.5-14.5); Red Blood Count 4.52 M/uL (4.63-6.08); White Blood Count 8.31 K/ul (4.8-10.8)
[2022-03-05] MEDS: HEPARIN SODIUM/DEXTROSE 25,000 UNITS/500 ML BAG IV SCH (11:54)
[2022-03-05 12:03] LABS: Basophils # (auto) 0.03 K/uL (0-0.2); Basophils % (auto) 0.4 %; Eosinophils # (auto) 0.03 K/uL (0-0.50); Eosinophils % (auto) 0.4 %; Immature Granulocytes # (auto) 0.05 K/uL (0.00-0.02); Immature Granulocytes % (auto) 0.6 %; Lymphocytes # (auto) 1.06 K/uL (1.2-3.4); Lymphocytes % (auto) 12.8 %; Monocytes # (auto) 0.64 K/uL (0.24-0.82); Monocytes % (auto) 7.7 %; Neutrophils % (auto) 78.1 %
[2022-03-05 12:14] LABS: BUN Creatinine Ratio 21.1 (10-20); Calcium 9.2 mg/dl (8.5-10.1); Creatinine Clr Calc Pharmacy 55.4 ml/min; Est GFR (African American) 67.1 ml/min; Est GFR (Non-African American) 57.9 ml/min; Potassium 4.2 mmol/L (3.5-5.1)
[2022-03-05 12:18] LABS: Partial Thromboplastin Ratio 1.7
[2022-03-05 12:21] LABS: Partial Thromboplastin Time 46.7 Seconds (21.0-31.0)
--- NOTE | 2022-03-05 13:03 | Hospitalist Progress Note ---
Date of Service March 05, 2022 Assessment & Plan (1) Stroke: Plan: Left basal ganglia/posterior limb of internal capsule. Thrombotic (off plavix recently) vs embolic etiology both possible (known aalmaz, was off Eliquis for his recent sinus surgery). Appreciate neurology consult. Appreciate PT, OT, speech. Dense aphasia, right arm weakness. Has had prior strokes in the past. Failed bedside swallow two days in a row. Video swallow on 03/05/22 with aspiration of thin liquids and then aborted due to cyanotic episode somewhat caused by aspiration of epistaxis as well Son reports previous need for Heimlich maneuver and other [facility] in the last 6 months, required pureed diet prior to this stroke For stroke prevention - cont heparin drip in lieu of Eliquis. Cont daily rectal aspirin in tim of PO Plavix. Patient and son agreeable for PEG tube placement-consult GI Consult Nutrition for tube feed recommendations Restart po meds once tube in place needs improved BP control as well once able to get po meds (2) Status post myringotomy with tube placement of both ears: Plan: 03/01/22 - s/p Bilateral Myringotomy and Tube Insertion, Image guided bilateral endoscopic sinus surgery with bilateral frontal, total ethmoid, and maxillary sinus antrostomies Dr Ge surgery performed due to chronic sinus issues/sinusitis, polyps, chronic OME b/l, etc. Dr Ge is aware of pt's admission Prior hospitalist attending discussed placing patient on heparin - ENT felt acceptable to do so; blood in sinuses seen on recent imaging likely OLD from his surgery no major epistaxis since admission except one brief episode during video swallow 03/05 occasional hemoptysis but small volume (3) Urinary retention: Plan: retaining 1 L urine on 03/05 after noting abd pain and distension check KUB also due to abd distension an dpain place Rodriguez start FLomax once peg tube in place (4) S/P nasal polypectomy: Plan: 03/01/22 Dr Ge (5) Atrial fibrillation: Plan: permanent / stable IV metoprolol mainly for BP control Heparin drip in lieu of Eliquis (6) Coronary artery disease: Plan: no ischemic symptoms Resume statin/plavix once PEG tube in place (7) Stage III chronic kidney disease: Plan: lasix on hold BMPs stable BMP in am (8) DM type 2 (diabetes mellitus, type 2): Plan: controlled cont novolog SSI HbA1C 6.7% (9) HTN (hypertension): Plan: BPs were allowed to be permissively high early in stay now start to control BP start metoprolol IV 5mg q6h if additional BP control is needed then start hydralazine 5mg IV q8h would be satisfied with SBP of 150-160 (10) Hypothyroid: Plan: Resume levothyroxine 50 mcg daily when able / after pEG most recent TSH wnl (2.3 in 09/2021) (11) Hyperlipidemia: Plan: resume statin after PEG (12) GERD (gastroesophageal reflux disease): Plan: Continue Pepcid and Protonix IV (13) Memory impairment: Plan: 2nd to vascular disease h/o Parkinsonism resume Sinemet 0.5 mg TID when able after pEG (14) BPH (benign prostatic hyperplasia): Plan: resume finasteride when able start FLomax once peg in palce with urinary retention (15) Thrombocytopenia: Plan: chronic, typically runs low 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 cbc in am for stability (16) Depression: Plan: resume Cymbalta for depression/neuropathy when able (17) B12 deficiency: Plan: resolved b12 level >1000 (18) Dysphagia: Plan: known issue at baseline multiple etiologies - prior CVAs, esophageal stenosis (required dilation 07/2021), etc failed video swallow-for PEG as above appreciate speech assistance Plan son updated at bedside questions answered Dispo-continued stay, needs PEG placement then retun to [place] Care Admission and Anticipated Discharge Date Admission Date: March 02, 2022 Subjective Pt extremely [place] and also with aphasia. Used paper and pen to communicate and he pointed to words on paper and shook head yes and no. He then had c/o severe abd pain and held his abdomen. Bladder scan performed and retaining 1 L urine. Rodriguez ordered. Pt also had attempted video swallow today but had cyanotic episode and epistaxis and therefore study was aborted. However, he was aspirating thin liquids. Pt says he would want a feeding tube and son in agreement at bedside. Son reports that pt had to have the Heimlich maneuver in the past few months at the assisted and was since placed on a pureed diet. Tele with rate controlled Afib Review of Systems Review of Systems: Unobtainable due to cognitive status and Other (aphasia) Physical Exam Physical Exam: gen - NAD then had distress with abd pain mouth - dry tongue nose - no epistaxis neck - no JVD heart - irregularly irregular, s1 s2, 1-2/6 systolic murmur RUSB lungs - CTA b/l abd - moderately distended, BS+, +TTP lower abdomen ext - no edema, pulses 2+ b/l neuro - right facial droop; expressive aphasia; right arm - strength about 3/5; b/l LEs - no spontaneous movement of either leg; strength LUE 5/5 Results & Data Results & Data ([facility]) Vital Signs (Past 12 Hours) Vital Signs Temp Pulse Pulse Resp BP BP BP 03/05/22 11:56 83 164/93 H 03/05/22 11:42 36.8 C 80 20 164/93 H 03/05/22 08:00 86 03/05/22 07:37 36.8 C 74 23 174/94 H 03/05/22 06:07 86 179/98 H 03/05/22 03:07 36.4 C L 76 16 126/103 H Pulse Ox O2 Del Method 03/05/22 11:56 03/05/22 11:42 97 Room Air 03/05/22 08:00 03/05/22 07:37 97 Room Air 03/05/22 06:07 03/05/22 03:07 97 Room Air Laboratory Results 03/05/22 03/05/22 03/05/22 Range/Units 12:10 11:25 11:25 WBC (4.8-10.8) K/ul RBC (4.63-6.08) M/uL Hgb (14.0-18.0) g/dl Hct (40.1-51.0) % MCV (80.0-100.0) fL MCH (25.0-34.0) pg MCHC (32.0-36.0) g/dL RDW Std Deviation (36.4-46.3) fL RDW Coeff of Eben (11.5-14.5) % Plt Count (130-400) K/uL MPV (9.4-12.4) fL Immature Gran % (Auto) % Neut % (Auto) % Lymph % (Auto) % [place] % (Auto) % Eos % (Auto) % Baso % (Auto) % Neut # (Auto) (1.4-6.5) K/uL Lymph # (Auto) (1.2-3.4) K/uL [place] # (Auto) (0.24-0.82) K/uL Eos # (Auto) (0-0.50) K/uL Baso # (Auto) (0-0.2) K/uL Immature Gran # (Auto) (0.00-0.02) K/uL APTT 46.7 H* (21.0-31.0) Seconds PTT Ratio 1.7 Sodium 137 (136-145) mmol/L Potassium 4.2 (3.5-5.1) mmol/L Chloride 108 H (98-107) mmol/L Carbon Dioxide 19 L (21-32) mmol/L Anion Gap 10 (3-11) BUN 24 H (6-23) mg/dl Creatinine 1.14 (0.6-1.4) mg/dl Est Cr Clr Drug Dosing 55.4 ml/min Est GFR ( Amer) 67.1 ml/min Est GFR (Non-Af Amer) 57.9 ml/min BUN/Creatinine Ratio 21.1 H (10-20) Glucose 177 H (70-99(Fasting)) mg/dl POC Glucose 167 H (70-99) mg/dl Calcium 9.2 (8.5-10.1) mg/dl 03/05/22 03/05/22 03/04/22 Range/Units 11:25 06:02 20:37 WBC 8.31 (4.8-10.8) K/ul RBC 4.52 L (4.63-6.08) M/uL Hgb 13.6 L (14.0-18.0) g/dl Hct 40.5 (40.1-51.0) % MCV 89.6 (80.0-100.0) fL MCH 30.1 (25.0-34.0) pg MCHC 33.6 (32.0-36.0) g/dL RDW Std Deviation 45.0 (36.4-46.3) fL RDW Coeff of Eben 13.8 (11.5-14.5) % Plt Count 113 L (130-400) K/uL MPV 11.4 (9.4-12.4) fL Immature Gran % (Auto) 0.6 % Neut % (Auto) 78.1 % Lymph % (Auto) 12.8 % Dillon % (Auto) 7.7 % Eos % (Auto) 0.4 % Baso % (Auto) 0.4 % Neut # (Auto) 6.50 (1.4-6.5) K/uL Lymph # (Auto) 1.06 L (1.2-3.4) K/uL Dillon # (Auto) 0.64 (0.24-0.82) K/uL Eos # (Auto) 0.03 (0-0.50) K/uL Baso # (Auto) 0.03 (0-0.2) K/uL Immature Gran # (Auto) 0.05 H (0.00-0.02) K/uL APTT (21.0-31.0) Seconds PTT Ratio Sodium (136-145) mmol/L Potassium (3.5-5.1) mmol/L Chloride (98-107) mmol/L Carbon Dioxide (21-32) mmol/L Anion Gap (3-11) BUN (6-23) mg/dl Creatinine (0.6-1.4) mg/dl Est Cr Clr Drug Dosing ml/min Est GFR ( Amer) ml/min Est GFR (Non-Af Amer) ml/min BUN/Creatinine Ratio (10-20) Glucose (70-99(Fasting)) mg/dl POC Glucose 139 H 135 H (70-99) mg/dl Calcium (8.5-10.1) mg/dl 03/04/22 Range/Units 17:57 WBC (4.8-10.8) K/ul RBC (4.63-6.08) M/uL Hgb (14.0-18.0) g/dl Hct (40.1-51.0) % MCV (80.0-100.0) fL MCH (25.0-34.0) pg MCHC (32.0-36.0) g/dL RDW Std Deviation (36.4-46.3) fL RDW Coeff of Eben (11.5-14.5) % Plt Count (130-400) K/uL MPV (9.4-12.4) fL Immature Gran % (Auto) % Neut % (Auto) % Lymph % (Auto) % [place] % (Auto) % Eos % (Auto) % Baso % (Auto) % Neut # (Auto) (1.4-6.5) K/uL Lymph # (Auto) (1.2-3.4) K/uL Dillon # (Auto) (0.24-0.82) K/uL Eos # (Auto) (0-0.50) K/uL Baso # (Auto) (0-0.2) K/uL Immature Gran # (Auto) (0.00-0.02) K/uL APTT (21.0-31.0) Seconds PTT Ratio Sodium (136-145) mmol/L Potassium (3.5-5.1) mmol/L Chloride (98-107) mmol/L Carbon Dioxide (21-32) mmol/L Anion Gap (3-11) BUN (6-23) mg/dl Creatinine (0.6-1.4) mg/dl Est Cr Clr Drug Dosing ml/min Est GFR ( Amer) ml/min Est GFR (Non-Af Amer) ml/min BUN/Creatinine Ratio (10-20) Glucose (70-99(Fasting)) mg/dl POC Glucose 151 H (70-99) mg/dl Calcium (8.5-10.1) mg/dl PG Care Time/CCT Total # of Minutes Spent Total Time Spent with Patient: Total time spent is greater than 50% in coordination of care (as documented) at patient's floor/unit and/or counseling patient: Coding Level of Care Code 40526 Subseq Hosp Care Lvl 3 Diagnoses Stroke I63.9 Status post myringotomy with tube placement of both ears Z96.22 Urinary retention R33.9 S/P nasal polypectomy Z98.890 Atrial fibrillation I48.21 Atrial fibrillation type: permanent Coronary artery disease I25.10 Stage III chronic kidney disease N18.3 DM type 2 (diabetes mellitus, type 2) E11.9; Z79.4 Diabetes mellitus long-term insulin use: with terminal operator use Diabetes mellitus complication status: without complication HTN (hypertension) I10 Hypothyroid E03.9 Hypothyroidism type: acquired Hyperlipidemia E78.2 Hyperlipidemia type: mixed hyperlipidemia GERD (gastroesophageal reflux disease) K21.9 Esophagitis presence: esophagitis presence not specified Memory impairment R41.3 BPH (benign prostatic hyperplasia) N40.0 Thrombocytopenia D69.6 Depression F32.9 B12 deficiency E53.8 Dysphagia R13.10 (1) Atrial fibrillation Atrial fibrillation type: permanent Qualified Code(s): I48.21 - Permanent atrial fibrillation (2) DM type 2 (diabetes mellitus, type 2) Diabetes mellitus long-term insulin use: with long-term use Diabetes mellitus complication status: without complication Qualified Code(s): E11.9 - Type 2 diabetes mellitus without complications; Z79.4 - [facility] (current) use of insulin (3) Hypothyroid Hypothyroidism type: acquired Qualified Code(s): E03.9 - Hypothyroidism, unspecified (4) Hyperlipidemia Hyperlipidemia type: mixed hyperlipidemia Qualified Code(s): E78.2 - Mixed hyperlipidemia (5) GERD (gastroesophageal reflux disease) Esophagitis presence: esophagitis presence not specified Qualified Code(s): K21.9 - Gastro-esophageal reflux disease without esophagitis
[2022-03-05] MEDS ORDERED: OXYMETAZOLINE 0.05% 30 ML BTL ONE (13:24)
--- NOTE | 2022-03-05 13:32 | Fluoroscopy Report ---
MODIFIED BARIUM SWALLOW CLINICAL HISTORY: r/o aspiration COMPARISON STUDY: Modified barium swallow October 25, 2021. FLUOROSCOPY TIME: 0.4 minutes. TECHNIQUE: A modified barium swallow was performed in conjunction with Speech Pathology. The patient ingested varying consistencies of barium containing material. Video fluoroscopy was performed. Due to aspiration and difficulty breathing, this study was completed. Only thin liquids were evaluated. FINDINGS: Note was made of tracheal aspiration on the initial swallow of thin liquids. Patient had re spiratory difficulty and therefore the study was not completed. No additional consistencies could be evaluated. IMPRESSION: 1. Tracheal aspiration with the initial swallow of thin liquids. Respiratory difficulty following thi s episode. Therefore, the study was terminated. 2. Recommendations by Speech pathology to follow. ACT 112: Negative or not required by law. Electronically signed by: Daniel Boyer M.D. 03/05/2022 1:31 PM
[2022-03-05] MEDS: OFLOXACIN 0.3% 75 DROPS/5 ML BTL OTB SCH ×2 (14:01→21:07)
--- NOTE | 2022-03-05 15:21 | XRay Report ---
KUB CLINICAL HISTORY: Abdominal pain. COMPARISON STUDY: CT of the abdomen and pelvis May 05, 2021. FINDINGS: Bowel gas pattern is normal. There is no evidence for a bowel obstruction. Cholecystectomy clips are noted. Suspected small amount of contrast within a hiatal hernia is noted from recent modif ied barium swallow. Rodriguez catheter is in place. Amount of stool within normal limits. Several small l eft renal calculi are noted. Pelvic calcifications likely reflect phleboliths. IMPRESSION: 1. No evidence for a bowel obstruction. 2. Left-sided nephrolithiasis. ACT 112: Negative or not required by law. Electronically signed by: Daniel Boyer M.D. 03/05/2022 3:19 PM
[2022-03-06] MEDS: METOPROLOL TARTRATE 1 MG/ML VIAL IV SCH ×4 (00:13→18:05)
[2022-03-06] MEDS: INSULIN ASPART PER UNIT SC SCH ×4 (00:17→18:05)
[2022-03-06] MEDS: hydrALAZINE HCL 20 MG/ML VIAL IV SCH ×3 (05:56→22:07)
[2022-03-06] MEDS: PANTOprazole 40 MG in SYRINGE 0 ML IV SCH (08:10)
[2022-03-06] MEDS: SODIUM CHLORIDE 0.9% 500 ML IV SCH (08:10)
[2022-03-06] MEDS: ASPIRIN 300 MG SUPP PR SCH (08:10)
[2022-03-06] MEDS: OFLOXACIN 0.3% 75 DROPS/5 ML BTL OTB SCH ×2 (08:11→21:25)
[2022-03-06] MEDS: FAMOTIDINE 20 MG in SYRINGE 3 ML IV SCH ×2 (08:11→21:42)
[2022-03-06] MEDS ORDERED: LEVOTHYROXINE SODIUM 25 MCG in SYRINGE 0 ML IV SCH (09:00)
[2022-03-06] MEDS: D5W AND LACTATED RINGERS 1,000 ML IV SCH ×2 (09:41→21:42)
--- NOTE | 2022-03-06 10:12 | Gastrointestinal Consultation ---
Date of Consultation March 06, 2022 Assessment & Plan (1) Feeding difficulties: Plan Patient is an 86 year old male recently admitted with a stroke, failed his video fluoroscopy and GI was consulted for question of peg tube. Since GI consult was placed patient seems to have had a decline in mental status. He is very hard to keep awake today. A palliative consult was placed. - discussed case with Dr. Brooks who advised on plan. - would await palliative consult and decide on goals of care. Will hold off on peg placement at this time until decision in light of worsening status. Will continue to monitor. Supervising Physician Co-Signing Physician Notes would advise holding off on any PEG placement in this patient with new stroke and recent plavix use. if feeding/nutrition is the issue then would advise placing an NG/OG tube and giving tube feeding, if no improvement in his swallowing function after 2 weeks then can consider PEG placement provided his health status is in stable condition and this is desired by the patient/family. plavix would need to be held 7 days before any PEG placement. History of Present Illness Reason for Consultation: peg tube, severe dysphagia, CVA Requesting Physician: Dr. Saravia Attending Physician: Hazel Saravia MD History of Present Illness Patient is an 86 year old male who was admitted with a stroke -Thrombotic (off plavix recently) vs embolic etiology. He has history of known a.fib and was off Eliquis for recent sinus surgery. he had video fluoroscopy with aspiration and GI was asked to see the patient to evaluate for a peg tube. Upon trying to see the patient this morning, he is hard to keep awake. Discussed with nursing and they tell me he has had worsening of his mental status over the past 24 hours. He was given heparin drip and last night had bleeding from his eyes, ears, and nose. Palliative consult has been placed to discuss goals of care at this point. Allergies Allergy/AdvReac Type Severity Reaction Status Date / Time hydrocodone AdvReac Mild Dizziness, Verified 03/01/22 05:55 [From Panlor Nausea (hydrocodone-acetamin)] oxycodone AdvReac Mild N/V Verified 03/01/22 05:55 tramadol AdvReac Mild Confusion Verified 03/01/22 05:55 Home Medications Medication Instructions Recorded Confirmed Type apixaban 2.5 mg tablet (Eliquis) 2.5 mg PO BID #180 tabs 08/21/20 03/02/22 Rx atorvastatin 80 mg tablet 80 mg PO HS #90 tabs 08/21/20 03/02/22 Rx finasteride 5 mg tablet 5 mg PO QAM #90 tabs 08/21/20 03/02/22 Rx levothyroxine 50 mcg tablet 50 mcg PO QAM #90 tabs 08/21/20 03/02/22 Rx triamcinolone acetonide 0.1 % 1 applic topical BID #30 grams 10/02/20 03/01/22 Rx topical cream glycerin 2 drp ophthalmic (eye) BID 10/17/20 03/02/22 History blood sugar diagnostic (OneTouch #100 ea 10/18/20 02/22/22 Rx Ultra Blue Test Strip) lancets 33 gauge (OneTouch Delica #100 ea 10/18/20 02/22/22 Rx Plus Lancet) blood-glucose meter (OneTouch #1 ea 10/31/20 02/22/22 Rx Ultra2 Meter) methylcellulose (with sugar) 2 2 g PO DAILY #454 grams 01/19/21 03/02/22 Rx gram/19 gram oral powder (Fiber Therapy (methylcellulose-sugar)) pen needle, diabetic 32 gauge x #100 ea 02/15/21 02/22/22 Rx 5/32" (BD Ultra-Fine Mary Carmen Pen Needle) famotidine 20 mg tablet 20 mg PO BID #60 tabs 03/28/21 03/02/22 Rx docusate sodium 100 mg capsule 100 mg PO BID #60 caps 04/03/21 03/02/22 Rx hydrocortisone 2.5 % topical cream 1 applic NC DAILY PRN hemorrhoids 04/09/21 03/02/22 Rx with perineal applicator #30 grams pregabalin 100 mg capsule 100 mg PO TID #90 caps 04/19/21 03/02/22 Rx diclofenac sodium 1 % topical gel 4 g topical QID PRN Pain 05/04/21 03/02/22 History carbidopa 25 mg-levodopa 100 mg 0.5 tab PO TID #45 tabs 05/21/21 03/02/22 Rx tablet (Sinemet) magnesium oxide 400 mg PO BID #60 tabs 06/04/21 03/02/22 Rx clopidogrel 75 mg tablet 75 mg PO QAM #90 tabs 06/11/21 03/02/22 Rx acetaminophen 325 mg tablet 650 mg PO QID PRN Pain 02/04/22 03/02/22 History cyanocobalamin (vitamin B-12) 1,000 mcg PO DAILY 02/04/22 03/02/22 History 1,000 mcg tablet duloxetine 60 mg capsule,delayed 30 mg PO QAM 02/04/22 03/02/22 History release furosemide 20 mg tablet 40 mg PO 3XWK 02/04/22 03/02/22 History insulin NPH-regular 70-30 U-100 30 unit subcut BID 02/04/22 03/02/22 History insulin 100 unit/mL subcutaneous pen (Novolin 70-30 FlexPen U-100 Insulin) insulin aspart U-100 100 unit/mL 1 sliding scale dose subcut 02/04/22 03/02/22 History subcutaneous solution (Novolog USEASDIRECTD U-100 Insulin aspart) lisinopril 40 mg tablet 40 mg PO DAILY 02/04/22 03/02/22 History magnesium hydroxide 800 mg/5 mL 7.75 mg PO DIRECTED PRN 02/04/22 03/02/22 History oral suspension Constipation ondansetron HCl 4 mg tablet 4 mg PO Q8H PRN Nausea 02/04/22 03/02/22 History pantoprazole 40 mg tablet,delayed 40 mg PO DAILY 02/04/22 03/02/22 History release semaglutide 0.25 mg or 0.5 mg (2 0.5 mg subcut WK 02/04/22 03/02/22 History mg/1.5 mL) subcutaneous pen injector (Ozempic) sodium phosphates 19 gram-7 118 ml NC DAILY PRN Constipation 02/04/22 03/02/22 History gram/118 mL enema (Enema) ofloxacin 0.3 % ear drops 5 drp otic (ear) BID #5 mL 03/01/22 03/02/22 Rx tramadol 50 mg tablet 50 mg PO Q8H PRN Pain #20 tabs 03/01/22 03/02/22 Rx Patient History Medical History Abnormal tympanic membrane R/L Atrial fibrillation Paroxysmal BPH (benign prostatic hyperplasia) CKD (chronic kidney disease) Coronary artery disease s/p CABG (2010) Depression DM type 2 (diabetes mellitus, type 2) GERD (gastroesophageal reflux disease) Hearing deficit HTN (hypertension) Hyperlipidemia Hypothyroid Kidney stones LVH (left ventricular hypertrophy) Focal thickening of the basal septum with no evidence of LVOT obstruction, Mild asymmetric LVH per 12/2018 echo Major depressive disorder Memory impairment Myocardial Infarction 2004 Follows with [facility] cardiology/Dr. 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 Yates Transient hypotension Upper respiratory infection Vocal cord paralysis Surgical History History of bilateral cataract extraction History of esophagogastroduodenoscopy (EGD) History of kidney surgery History of lithotripsy x2 History of lumbar laminectomy History of tooth extraction Hx of CABG 2003 ([facility]) Family History Father Diabetes Coronary heart disease Mother Diabetes Coronary heart disease Myocardial infarction Sister Breast cancer Brother Coronary heart disease Son Family history of diabetes mellitus Family/Other Family history of diabetes mellitus grandson Other No family history of adverse response to anesthesia Denies family history of Ovarian cancer Prostate cancer Colorectal cancer Social History Smoking Status: Never smoker Second Hand Exposure: No; Hx Alcohol Use: No Hx Substance Use: No Preferred Language: Kittitian Communication Ability: Impaired Visual Impairment: No Limitations Hearing Ability: Use of Hearing Aid Golf 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: No Beliefs That Will Affect Care: None marital status: Current Living Situation: Shelter Current Living Situation Comment: [facility] current occupational status: retired current occupation: used to work in [employer] How many Children do You have: 1 Feels Safe at Home: Yes Childhood Exposure to Second-Hand Smoke: Yes caffeine: Yes Dental Care, Regularly: No Physical Activity Frequency: Does not Exercise Seatbelt Use: always Sunscreen Use: No Assistive Devices: Walker and Wheelchair Review of Systems Review of Systems: Unobtainable due to cognitive status Physical Exam Respiratory: normal respiratory effort, lungs clear to auscultation Cardiovascular: RRR, no murmur, no edema Gastrointestinal (Abdomen): normal bowel sounds Psychiatric: lethargic and unable to arouse for longer than a few seconds. Results & Data ([facility]) Vital Signs (Past 12 Hours) Vital Signs Temp Pulse Pulse Resp BP BP BP 03/06/22 08:16 37.2 C 85 18 151/83 H 03/06/22 07:00 72 03/06/22 03:54 87 20 168/94 H 03/06/22 00:20 37.4 C 94 H 20 135/69 03/06/22 00:13 135/69 Pulse Ox O2 Del Method 03/06/22 08:16 96 Room Air 03/06/22 07:00 03/06/22 03:54 98 Room Air 03/06/22 00:20 94 Room Air 03/06/22 00:13 PG Care Time/CCT Total # of Minutes Spent Total Time Spent with Patient: Total time spent is greater than 50% in coordination of care (as documented) at patient's floor/unit and/or counseling patient: Coding Level of Care Code 51982 Initial Inpt Care Lvl 3 Diagnoses Feeding difficulties R63.30
[2022-03-06 11:52] LABS: Hematocrit (blood only) 37.7 % (40.1-51.0); Hemoglobin 12.7 g/dl (14.0-18.0); Mean Corpuscular Hemoglobin 30.5 pg (25.0-34.0); Mean Corpuscular Hgb Conc 33.7 g/dL (32.0-36.0); Mean Corpuscular Volume 90.6 fL (80.0-100.0); Mean Platelet Volume 11.5 fL (9.4-12.4); Partial Thromboplastin Ratio 1.1; Partial Thromboplastin Time 31.2 Seconds (21.0-31.0); Platelet Count 105 K/uL (130-400); RDW Coefficient of Variation 14.1 % (11.5-14.5); Red Blood Count 4.16 M/uL (4.63-6.08); White Blood Count 6.82 K/ul (4.8-10.8)
[2022-03-06 12:02] LABS: Albumin Level 3.6 gm/dl (3.4-5.0); BUN Creatinine Ratio 19.6 (10-20); Bilirubin Direct 0.2 mg/dl (0-0.2); Creatinine Clr Calc Pharmacy 55.5 ml/min; Est GFR (African American) 68.6 ml/min; Est GFR (Non-African American) 59.2 ml/min; Phosphorus 2.9 mg/dl (2.5-4.9); Potassium 3.8 mmol/L (3.5-5.1); Total Protein 6.7 gm/dl (6.0-8.3)
[2022-03-06 12:03] LABS: Basophils # (auto) 0.02 K/uL (0-0.2); Basophils % (auto) 0.3 %; Eosinophils # (auto) 0.06 K/uL (0-0.50); Eosinophils % (auto) 0.9 %; Immature Granulocytes # (auto) 0.04 K/uL (0.00-0.02); Immature Granulocytes % (auto) 0.6 %; Lymphocytes # (auto) 1.09 K/uL (1.2-3.4); Monocytes % (auto) 8.8 %; Neutrophils # (auto) 5.01 K/uL (1.4-6.5); Neutrophils % (auto) 73.4 %
--- NOTE | 2022-03-06 14:47 | Hospitalist Progress Note ---
Date of Service March 06, 2022 Assessment & Plan (1) Stroke: Plan: Left basal ganglia/posterior limb of internal capsule. Thrombotic (off plavix recently) vs embolic etiology both possible (known aalmaz, was off Eliquis for his recent sinus surgery). Appreciate neurology consult. Appreciate PT, OT, speech. Dense aphasia, right arm weakness. Has had prior strokes in the past. Failed bedside swallow two days in a row. Video swallow on 03/05/22 with aspiration of thin liquids and then aborted due to cyanotic episode somewhat caused by aspiration of epistaxis as well Son reports previous need for Heimlich maneuver and other choking episodes at [place] in the last 6 months, required pureed diet prior to this stroke For stroke prevention - cont heparin drip in lieu of Eliquis. Cont daily rectal aspirin in tim of PO Plavix. 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 Ge who can do this on Friday Consult Nutrition for tube feed recommendations Restart po meds once tube in place needs improved BP control as well once able to get po meds -change maintenance fluids to D5LR at 80mL/hr (2) Status post myringotomy with tube placement of both ears: Plan: 03/01/22 - s/p Bilateral Myringotomy and Tube Insertion, Image guided bilateral endoscopic sinus surgery with bilateral frontal, total ethmoid, and maxillary sinus antrostomies Dr Ge surgery performed due to chronic sinus issues/sinusitis, polyps, chronic OME b/l, etc. 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 Dr Ge is aware of pt's admission Prior hospitalist attending discussed placing patient on heparin - ENT felt acceptable to do so; blood in sinuses seen on recent imaging likely OLD from his surgery no major epistaxis since admission except one brief episode during video swallow 03/05 occasional hemoptysis but small volume having some mild epistaxis and bloody drainage from ears--use Afrin as needed for bleeding (3) Urinary retention: Plan: retaining 1 L urine on 03/05 after noting abd pain and distension checked KUB also due to abd distension an dpain-no obstruciton, moving bowels now placed Rodriguez and draining well now start FLomax once peg tube in place (4) S/P nasal polypectomy: Plan: 03/01/22 Dr Ge (5) Atrial fibrillation: Plan: permanent / stable IV metoprolol mainly for BP control Heparin drip in lieu of Eliquis now on hold du to bleeding from nose and ears (6) Coronary artery disease: Plan: no ischemic symptoms Resume statin/plavix once PEG tube in place (7) Stage III chronic kidney disease: Plan: lasix on hold BMPs stable BMP in am (8) DM type 2 (diabetes mellitus, type 2): Plan: controlled cont novolog SSI HbA1C 6.7% (9) HTN (hypertension): Plan: BPs were allowed to be permissively high early in stay now start to control BP start metoprolol IV 5mg q6h if additional BP control is needed then start hydralazine 5mg IV q8h would be satisfied with SBP of 150-160 (10) Hypothyroid: Plan: Resume levothyroxine 50 mcg daily when able / after pEG most recent TSH wnl (2.3 in 09/2021) for now give IV lT4 25mcg q72 h (11) Hyperlipidemia: Plan: resume statin after PEG (12) GERD (gastroesophageal reflux disease): Plan: Continue Pepcid and Protonix IV (13) Memory impairment: Plan: 2nd to vascular disease h/o Parkinsonism resume Sinemet 0.5 mg TID when able after pEG (14) BPH (benign prostatic hyperplasia): Plan: resume finasteride when able start FLomax once peg in place with urinary retention (15) Thrombocytopenia: Plan: chronic, typically runs low 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 cbc in am for stability (16) Depression: Plan: resume Cymbalta for depression/neuropathy when able (17) B12 deficiency: Plan: resolved b12 level >1000 (18) Dysphagia: Plan: known issue at baseline multiple etiologies - prior CVAs, esophageal stenosis (required dilation 07/2021), etc failed video swallow-for PEG as above appreciate speech assistance Plan son updated at bedside questions answered Dispo-continued stay, needs NGT placement then return to [facility] with tube feeds Admission and Anticipated Discharge Date Admission Date: March 02, 2022 Subjective Pt was very lethargic this AM but then woke up and is much more alert today than yesterday. Is a little bit more interactive. Continues to have coughing fits with suspected aspiration of saliva followed by turning red in the face. He is moving his bowels today. Still having some slight oozing of blood from the right ear today as per RN. No epistaxis Pt denies pain. Did communicate with pen and paper. Review of Systems Review of Systems: All systems reviewed & are unremarkable except as noted in HPI & below Physical Exam Physical Exam: gen - NAD then had distress with abd pain mouth - dry tongue nose - no epistaxis neck - no JVD heart - irregularly irregular, s1 s2, 1-2/6 systolic murmur RUSB lungs - CTA b/l abd - moderately distended, BS+, +TTP lower abdomen ext - no edema, pulses 2+ b/l neuro - right facial droop; expressive aphasia; right arm - strength about 3/5; b/l LEs - no spontaneous movement of either leg; strength LUE 5/5 Results & Data Results & Data ([facility]) Vital Signs (Past 12 Hours) Vital Signs Temp Pulse Pulse Resp BP BP Pulse Ox 03/06/22 13:40 86 151/89 H 03/06/22 11:32 36.9 C 86 22 151/89 H 99 03/06/22 08:16 37.2 C 85 18 151/83 H 96 03/06/22 07:00 72 03/06/22 03:54 87 20 168/94 H 98 O2 Del Method 03/06/22 13:40 03/06/22 11:32 Room Air 03/06/22 08:16 Room Air 03/06/22 07:00 03/06/22 03:54 Room Air Laboratory Results 03/06/22 03/06/22 03/06/22 Range/Units 18:00 11:52 11:10 WBC (4.8-10.8) K/ul RBC (4.63-6.08) M/uL Hgb (14.0-18.0) g/dl Hct (40.1-51.0) % MCV (80.0-100.0) fL MCH (25.0-34.0) pg MCHC (32.0-36.0) g/dL RDW Std Deviation (36.4-46.3) fL RDW Coeff of Eben (11.5-14.5) % Plt Count (130-400) K/uL MPV (9.4-12.4) fL Immature Gran % (Auto) % Neut % (Auto) % Lymph % (Auto) % [place] % (Auto) % Eos % (Auto) % Baso % (Auto) % Neut # (Auto) (1.4-6.5) K/uL Lymph # (Auto) (1.2-3.4) K/uL [place] # (Auto) (0.24-0.82) K/uL Eos # (Auto) (0-0.50) K/uL Baso # (Auto) (0-0.2) K/uL Immature Gran # (Auto) (0.00-0.02) K/uL APTT (21.0-31.0) Seconds PTT Ratio Sodium 138 (136-145) mmol/L Potassium 3.8 (3.5-5.1) mmol/L Chloride 110 H (98-107) mmol/L Carbon Dioxide 20 L (21-32) mmol/L Anion Gap 8 (3-11) BUN 22 (6-23) mg/dl Creatinine 1.12 (0.6-1.4) mg/dl Est Cr Clr Drug Dosing 55.5 ml/min Est GFR ( Amer) 68.6 ml/min Est GFR (Non-Af Amer) 59.2 ml/min BUN/Creatinine Ratio 19.6 (10-20) Glucose 180 H (70-99(Fasting)) mg/dl POC Glucose 144 H 168 H (70-99) mg/dl Calcium 9.0 (8.5-10.1) mg/dl Phosphorus 2.9 (2.5-4.9) mg/dl Magnesium 2.0 (1.7-2.4) mg/dl Total Bilirubin 1.0 (0.2-1.0) mg/dl Direct Bilirubin 0.2 (0-0.2) mg/dl AST 18 (13-39) U/L ALT 17 (7-52) U/L Alkaline Phosphatase 59 (34-104) U/L Total Protein 6.7 (6.0-8.3) gm/dl Albumin 3.6 (3.4-5.0) gm/dl 03/06/22 03/06/2222 Range/Units 11:10 11:10 06:05 WBC 6.82 (4.8-10.8) K/ul RBC 4.16 L (4.63-6.08) M/uL Hgb 12.7 L (14.0-18.0) g/dl Hct 37.7 L (40.1-51.0) % MCV 90.6 (80.0-100.0) fL MCH 30.5 (25.0-34.0) pg MCHC 33.7 (32.0-36.0) g/dL RDW Std Deviation 46.0 (36.4-46.3) fL RDW Coeff of Eben 14.1 (11.5-14.5) % Plt Count 105 L (130-400) K/uL MPV 11.5 (9.4-12.4) fL Immature Gran % (Auto) 0.6 % Neut % (Auto) 73.4 % Lymph % (Auto) 16.0 % [place] % (Auto) 8.8 % Eos % (Auto) 0.9 % Baso % (Auto) 0.3 % Neut # (Auto) 5.01 (1.4-6.5) K/uL Lymph # (Auto) 1.09 L (1.2-3.4) K/uL [place] # (Auto) 0.60 (0.24-0.82) K/uL Eos # (Auto) 0.06 (0-0.50) K/uL Baso # (Auto) 0.02 (0-0.2) K/uL Immature Gran # (Auto) 0.04 H (0.00-0.02) K/uL APTT 31.2 H (21.0-31.0) Seconds PTT Ratio 1.1 Sodium (136-145) mmol/L Potassium (3.5-5.1) mmol/L Chloride (98-107) mmol/L Carbon Dioxide (21-32) mmol/L Anion Gap (3-11) BUN (6-23) mg/dl Creatinine (0.6-1.4) mg/dl Est Cr Clr Drug Dosing ml/min Est GFR ( Amer) ml/min Est GFR (Non-Af Amer) ml/min BUN/Creatinine Ratio (10-20) Glucose (70-99(Fasting)) mg/dl POC Glucose 130 H (70-99) mg/dl Calcium (8.5-10.1) mg/dl Phosphorus (2.5-4.9) mg/dl Magnesium (1.7-2.4) mg/dl Total Bilirubin (0.2-1.0) mg/dl Direct Bilirubin (0-0.2) mg/dl AST (13-39) U/L ALT (7-52) U/L Alkaline Phosphatase (34-104) U/L Total Protein (6.0-8.3) gm/dl Albumin (3.4-5.0) gm/dl 03/05/22 Range/Units 23:58 WBC (4.8-10.8) K/ul RBC (4.63-6.08) M/uL Hgb (14.0-18.0) g/dl Hct (40.1-51.0) % MCV (80.0-100.0) fL MCH (25.0-34.0) pg MCHC (32.0-36.0) g/dL RDW Std Deviation (36.4-46.3) fL RDW Coeff of Eben (11.5-14.5) % Plt Count (130-400) K/uL MPV (9.4-12.4) fL Immature Gran % (Auto) % Neut % (Auto) % Lymph % (Auto) % [place] % (Auto) % Eos % (Auto) % Baso % (Auto) % Neut # (Auto) (1.4-6.5) K/uL Lymph # (Auto) (1.2-3.4) K/uL [place] # (Auto) (0.24-0.82) K/uL Eos # (Auto) (0-0.50) K/uL Baso # (Auto) (0-0.2) K/uL Immature Gran # (Auto) (0.00-0.02) K/uL APTT (21.0-31.0) Seconds PTT Ratio Sodium (136-145) mmol/L Potassium (3.5-5.1) mmol/L Chloride (98-107) mmol/L Carbon Dioxide (21-32) mmol/L Anion Gap (3-11) BUN (6-23) mg/dl Creatinine (0.6-1.4) mg/dl Est Cr Clr Drug Dosing ml/min Est GFR ( Amer) ml/min Est GFR (Non-Af Amer) ml/min BUN/Creatinine Ratio (10-20) Glucose (70-99(Fasting)) mg/dl POC Glucose 144 H (70-99) mg/dl Calcium (8.5-10.1) mg/dl Phosphorus (2.5-4.9) mg/dl Magnesium (1.7-2.4) mg/dl Total Bilirubin (0.2-1.0) mg/dl Direct Bilirubin (0-0.2) mg/dl AST (13-39) U/L ALT (7-52) U/L Alkaline Phosphatase (34-104) U/L Total Protein (6.0-8.3) gm/dl Albumin (3.4-5.0) gm/dl PG Care Time/CCT Total # of Minutes Spent Total Time Spent with Patient: Total time spent is greater than 50% in coordination of care (as documented) at patient's floor/unit and/or counseling patient: Coding Level of Care Code 68954 Subseq Hosp Care Lvl 3 Diagnoses Stroke I63.9 Status post myringotomy with tube placement of both ears Z96.22 Urinary retention R33.9 S/P nasal polypectomy Z98.890 Atrial fibrillation I48.21 Atrial fibrillation type: permanent Coronary artery disease I25.10 Stage III chronic kidney disease N18.3 DM type 2 (diabetes mellitus, type 2) E11.9; Z79.4 Diabetes mellitus complication status: without complication Diabetes mellitus manager long term care insulin use: with manager long term care use HTN (hypertension) I10 Hypothyroid E03.9 Hypothyroidism type: acquired Hyperlipidemia E78.2 Hyperlipidemia type: mixed hyperlipidemia GERD (gastroesophageal reflux disease) K21.9 Esophagitis presence: esophagitis presence not specified Memory impairment R41.3 BPH (benign prostatic hyperplasia) N40.0 Thrombocytopenia D69.6 Depression F32.9 B12 deficiency E53.8 Dysphagia R13.10 (1) DM type 2 (diabetes mellitus, type 2) Diabetes mellitus complication status: without complication Diabetes mellitus senior care insulin use: with manager long term care use Qualified Code(s): E11.9 - Type 2 diabetes mellitus without complications; Z79.4 - residential (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
[2022-03-07] MEDS: METOPROLOL TARTRATE 1 MG/ML VIAL IV SCH ×4 (00:06→18:26)
[2022-03-07] MEDS: INSULIN ASPART PER UNIT SC SCH ×4 (00:11→18:26)
[2022-03-07] MEDS: hydrALAZINE HCL 20 MG/ML VIAL IV SCH ×3 (06:07→21:30)
[2022-03-07 07:28] LABS: Hematocrit (blood only) 37.5 % (40.1-51.0); Mean Corpuscular Hemoglobin 30.6 pg (25.0-34.0); Mean Corpuscular Hgb Conc 34.7 g/dL (32.0-36.0); Mean Corpuscular Volume 88.2 fL (80.0-100.0); Mean Platelet Volume 11.6 fL (9.4-12.4); Platelet Count 93 K/uL (130-400); RDW Standard Deviation 44.9 fL (36.4-46.3); Red Blood Count 4.25 M/uL (4.63-6.08); White Blood Count 6.49 K/ul (4.8-10.8)
[2022-03-07 07:41] LABS: BUN Creatinine Ratio 17.6 (10-20); Calcium 9.1 mg/dl (8.5-10.1); Creatinine Clr Calc Pharmacy 60.9 ml/min; Est GFR (African American) 76.8 ml/min; Est GFR (Non-African American) 66.2 ml/min; Potassium 3.6 mmol/L (3.5-5.1)
[2022-03-07 07:56] LABS: Basophils # (auto) 0.04 K/uL (0-0.2); Basophils % (auto) 0.6 %; Eosinophils # (auto) 0.19 K/uL (0-0.50); Eosinophils % (auto) 2.9 %; Immature Granulocytes # (auto) 0.03 K/uL (0.00-0.02); Immature Granulocytes % (auto) 0.5 %; Lymphocytes # (auto) 1.29 K/uL (1.2-3.4); Lymphocytes % (auto) 19.9 %; Monocytes # (auto) 0.54 K/uL (0.24-0.82); Monocytes % (auto) 8.3 %; Neutrophils % (auto) 67.8 %; Toxic Vacuolation 1+
[2022-03-07] MEDS: PANTOprazole 40 MG in SYRINGE 0 ML IV SCH (08:21)
[2022-03-07] MEDS: ASPIRIN 300 MG SUPP PR SCH (08:22)
[2022-03-07] MEDS: FAMOTIDINE 20 MG in SYRINGE 3 ML IV SCH ×2 (08:22→20:26)
[2022-03-07] MEDS: OFLOXACIN 0.3% 75 DROPS/5 ML BTL OTB SCH ×2 (08:22→20:23)
[2022-03-07] MEDS: D5W AND LACTATED RINGERS 1,000 ML IV SCH ×2 (09:23→21:29)
--- NOTE | 2022-03-07 11:59 | Palliative Care Consultation ---
Date of Consultation March 07, 2022 Assessment & Plan (1) Dysphagia: Aspiration of thin liquids on swallowing study. Currently NPO. Plan for NG feeding tube tomorrow with ENT. (2) Palliative care encounter: I attempted to talk with Mr. Martinez about his thoughts about the feeding tube. I pointed to the sentence about feeding tube placement tomorrow and asked if this is ok with a thumb's up. He did nod at one point but when I repeated the question later, he did not answer. It is unclear to me how much he is able to hear and comprehend about his stroke and the idea of artificial nutrition. I did speak with his son, Sandor, who tells me that he has had some reservations about whether Sahil completely understands the idea of a feeding tube. I asked him if he thought that artificial feeding would be consistent with Sahil's goals as he understands them. He tells me that Sahil is a very determined, independent person and he is not sure that he would want to live like this. Sandor, himself, feels that he would not want a feeding tube and is conflicted about what to do for Sahil. We discussed placement of NG tube for temporary feeding. Unfortunately, it is unclear how much Sahil may be able to recover from his neurological deficit. NG would also allow us to resume some of Sahil's po medications. We did discuss the possibility that Sahil could try to pull the tube out. At this time, Sandor is agreeable to short term artificial nutrition. He feels that this will allow him more time to see Sahil's progress, talk with family members and decide what he thinks Sahil would want if he remains unable to indicate his wishes. He would want to consider these things prior to PEG tube placement. (3) Stroke: History of Present Illness Reason for Consultation: goals of care Requesting Physician: Dr. Saravia Attending Physician: Hazel Saravia MD History of Present Illness 86 yo gentleman who resides at [facility]. He has a history of previous strokes, CAD s/p CABF, diabetes, Parkinsons and atrial fibrillation for which he was taking eliquis. This had been on hold for recent b/l myringotomy and nasal polypectomy. He presented with right sided weakness and right facial droop. Imaging confirmed a 12 mm infarct in the left basal gangia and posterior limb of the left internal capsule. He was not a candidate for tpa. He has expressive aphasia which is complicated by the fact that he is very hard of hearing and history of dysarthria. He had a video swallowing study which indicated aspiration and respiratory distress with thin liquids. He is currently NPO. We have been consulted to assist with goals of care. Mr. Martinez is awake at the time of my visit. He has a hearing aid in his left ear. He is restless and pulling at sheets. He has a farley catheter for urinary retention and has been trying to pull at SCDs per RN. He shakes his head no when asked if having pain on two different occasions. He has a list of questions written on a clip board to facilitate communication. He does not wear glasses and is frequently adjusting the distance of the clip board with is left hand during our conversation. He appears to be frustrated with inability to communicate. Allergies Allergy/AdvReac Type Severity Reaction Status Date / Time hydrocodone AdvReac Mild Dizziness, Verified 03/01/22 05:55 [From Panlor Nausea (hydrocodone-acetamin)] oxycodone AdvReac Mild N/V Verified 03/01/22 05:55 tramadol AdvReac Mild Confusion Verified 03/01/22 05:55 Home Medications Medication Instructions Recorded Confirmed Type apixaban 2.5 mg tablet (Eliquis) 2.5 mg PO BID #180 tabs 08/21/20 03/02/22 Rx atorvastatin 80 mg tablet 80 mg PO HS #90 tabs 08/21/20 03/02/22 Rx finasteride 5 mg tablet 5 mg PO QAM #90 tabs 08/21/20 03/02/22 Rx levothyroxine 50 mcg tablet 50 mcg PO QAM #90 tabs 08/21/20 03/02/22 Rx triamcinolone acetonide 0.1 % 1 applic topical BID #30 grams 10/02/20 03/01/22 Rx topical cream glycerin 2 drp ophthalmic (eye) BID 10/17/20 03/02/22 History blood sugar diagnostic (Specialized TechTouch #100 ea 10/18/20 02/22/22 Rx Ultra Blue Test Strip) lancets 33 gauge (OneTouch Delica #100 ea 10/18/20 02/22/22 Rx Plus Lancet) blood-glucose meter (Specialized TechToPerfect Audience #1 ea 10/31/20 02/22/22 Rx Ultra2 Meter) methylcellulose (with sugar) 2 2 g PO DAILY #454 grams 01/19/21 03/02/22 Rx gram/19 gram oral powder (Fiber Therapy (methylcellulose-sugar)) pen needle, diabetic 32 gauge x #100 ea 02/15/21 02/22/22 Rx 5/32" (BD Ultra-Fine Mary Carmen Pen Needle) famotidine 20 mg tablet 20 mg PO BID #60 tabs 03/28/21 03/02/22 Rx docusate sodium 100 mg capsule 100 mg PO BID #60 caps 04/03/21 03/02/22 Rx hydrocortisone 2.5 % topical cream 1 applic HI DAILY PRN hemorrhoids 04/09/21 03/02/22 Rx with perineal applicator #30 grams pregabalin 100 mg capsule 100 mg PO TID #90 caps 04/19/21 03/02/22 Rx diclofenac sodium 1 % topical gel 4 g topical QID PRN Pain 05/04/21 03/02/22 History carbidopa 25 mg-levodopa 100 mg 0.5 tab PO TID #45 tabs 05/21/21 03/02/22 Rx tablet (Sinemet) magnesium oxide 400 mg PO BID #60 tabs 06/04/21 03/02/22 Rx clopidogrel 75 mg tablet 75 mg PO QAM #90 tabs 06/11/21 03/02/22 Rx acetaminophen 325 mg tablet 650 mg PO QID PRN Pain 02/04/22 03/02/22 History cyanocobalamin (vitamin B-12) 1,000 mcg PO DAILY 02/04/22 03/02/22 History 1,000 mcg tablet duloxetine 60 mg capsule,delayed 30 mg PO QAM 02/04/22 03/02/22 History release furosemide 20 mg tablet 40 mg PO 3XWK 02/04/22 03/02/22 History insulin NPH-regular 70-30 U-100 30 unit subcut BID 02/04/22 03/02/22 History insulin 100 unit/mL subcutaneous pen (Novolin 70-30 FlexPen U-100 Insulin) insulin aspart U-100 100 unit/mL 1 sliding scale dose subcut 02/04/22 03/02/22 History subcutaneous solution (Novolog USEASDIRECTD U-100 Insulin aspart) lisinopril 40 mg tablet 40 mg PO DAILY 02/04/22 03/02/22 History magnesium hydroxide 800 mg/5 mL 7.75 mg PO DIRECTED PRN 02/04/22 03/02/22 History oral suspension Constipation ondansetron HCl 4 mg tablet 4 mg PO Q8H PRN Nausea 02/04/22 03/02/22 History pantoprazole 40 mg tablet,delayed 40 mg PO DAILY 02/04/22 03/02/22 History release semaglutide 0.25 mg or 0.5 mg (2 0.5 mg subcut WK 02/04/22 03/02/22 History mg/1.5 mL) subcutaneous pen injector (Ozempic) sodium phosphates 19 gram-7 118 ml HI DAILY PRN Constipation 02/04/22 03/02/22 History gram/118 mL enema (Enema) ofloxacin 0.3 % ear drops 5 drp otic (ear) BID #5 mL 03/01/22 03/02/22 Rx tramadol 50 mg tablet 50 mg PO Q8H PRN Pain #20 tabs 03/01/22 03/02/22 Rx Patient History Medical History Abnormal tympanic membrane R/L Atrial fibrillation Paroxysmal BPH (benign prostatic hyperplasia) CKD (chronic kidney disease) Coronary artery disease s/p CABG (2010) Depression DM type 2 (diabetes mellitus, type 2) GERD (gastroesophageal reflux disease) Hearing deficit HTN (hypertension) Hyperlipidemia Hypothyroid Kidney stones LVH (left ventricular hypertrophy) Focal thickening of the basal septum with no evidence of LVOT obstruction, Mild asymmetric LVH per 12/2018 echo Major depressive disorder Memory impairment Myocardial Infarction 2003 Follow[facility] with [facility]/Dr. 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 Yates Transient hypotension Upper respiratory infection Vocal cord paralysis Surgical History History of bilateral cataract extraction History of esophagogastroduodenoscopy (EGD) History of kidney surgery History of lithotripsy x2 History of lumbar laminectomy History of tooth extraction Hx of CABG 2003 ([facility]) Family History Father Diabetes Coronary heart disease Mother Diabetes Coronary heart disease Myocardial infarction Sister Breast cancer Brother Coronary heart disease Son Family history of diabetes mellitus Family/Other Family history of diabetes mellitus grandson Other No family history of adverse response to anesthesia Denies family history of Ovarian cancer Prostate cancer Colorectal cancer Social History Smoking Status: Never smoker Second Hand Exposure: No; Hx Alcohol Use: No Hx Substance Use: No Preferred Language: Maltese Communication Ability: Impaired Visual Impairment: No Limitations Hearing Ability: Use of Hearing Aid Food Critic Required: No Beliefs That Will Affect Care: None marital status: Current Living Situation: Intermediate Current Living Situation Comment: [facility] current occupational status: retired current occupation: used to work in [employer] How many Children do You have: 1 Feels Safe at Home: Yes Childhood Exposure to Second-Hand Smoke: Yes caffeine: Yes Dental Care, Regularly: No Physical Activity Frequency: Does not Exercise Seatbelt Use: always Sunscreen Use: No Assistive Devices: Walker and Wheelchair Review of Systems Review of Systems: ESAS Pain 0/3 Dyspnea 0/3 Drowsiness 0/3 Limited with aphasia PPS 30% Physical Exam Constitutional: well nourished; no acute distress ENMT: left hearing aid dry oral mucosa Respiratory: normal respiratory effort; no labored breathing Cardiovascular: Rate/Rhythm: + irregularly irregular Gastrointestinal (Abdomen): nontender Skin: warm and dry Neurologic: right upper and lower extremity weakness, lifts right arm slightly to insert pillow Genitourinary: farley for retention Results & Data ([facility]) Vital Signs (Past 12 Hours) Vital Signs Temp Pulse Pulse Resp BP BP Pulse Ox 03/07/22 08:03 98.4 F 74 14 162/74 H 95 03/07/22 07:00 74 03/07/22 06:07 166/88 H 03/07/22 04:20 97.7 F 78 15 166/88 H 97 03/07/22 00:06 156/75 H O2 Del Method 03/07/22 08:03 Room Air 03/07/22 07:00 03/07/22 06:07 03/07/22 04:20 Room Air 03/07/22 00:06 PG Care Time/CCT Total # of Minutes Spent Total Time Spent: 55 Total Time Spent with Patient: Total time spent is greater than 50% in coordination of care (as documented) at patient's floor/unit and/or counseling patient:goals of care, patient and family education and support Coding Level of Care Code 20828 Initial Inpt Care Lvl 2 Diagnoses Dysphagia R13.10 Palliative care encounter Z51.5 Stroke I63.9
[2022-03-07] MEDS ORDERED: ACETAMINOPHEN 1,000 MG/100 ML VIAL IV STA (18:02)
--- NOTE | 2022-03-07 19:21 | Hospitalist Progress Note ---
Date of Service March 07, 2022 Assessment & Plan (1) Stroke: Plan: Left basal ganglia/posterior limb of internal capsule. Thrombotic (off plavix recently) vs embolic etiology both possible (known aalmaz, was off Eliquis for his recent sinus surgery). Appreciate neurology consult. Appreciate PT, OT, speech. Dense aphasia, right arm and leg weakness which is improving a bit over the last 2 days. Still with significant aphasia and dysphagia Has had prior strokes Failed bedside swallow two days in a row. Video swallow on 03/05/22 with aspiration of thin liquids and then aborted due to cyanotic episode somewhat caused by aspiration of epistaxis as well Son reports previous need for Heimlich maneuver and other choking episodes at [place] in the last 6 months, required pureed diet prior to this stroke For stroke prevention -was placed on heparin drip in lieu of Eliquis, but now on hold due to bleeding from sinuses coming out ears through TM tubes (recent sinus surgery) Cont daily rectal aspirin in lieu of PO Plavix. 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 Ge who can do this on Friday Consult Nutrition for tube feed recommendations Restart po meds once tube in place needs improved BP control as well once able to get po meds -continue maintenance fluids to D5LR at 80mL/hr (2) Status post myringotomy with tube placement of both ears: Plan: 03/01/22 - s/p Bilateral Myringotomy and Tube Insertion, Image guided bilateral endoscopic sinus surgery with bilateral frontal, total ethmoid, and maxillary sinus antrostomies Dr Ge surgery performed due to chronic sinus issues/sinusitis, polyps, chronic OME b/l, etc. 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 Dr Ge is aware of pt's admission Prior hospitalist attending discussed placing patient on heparin - ENT felt acceptable to do so; blood in sinuses seen on recent imaging likely OLD from his surgery no major epistaxis since admission except one brief episode during video swallow 03/05 occasional hemoptysis but small volume having some mild epistaxis and bloody drainage from ears--use Afrin as needed for bleeding (3) Urinary retention: Plan: retaining 1 L urine on 03/05 after noting abd pain and distension checked KUB also due to abd distension an dpain-no obstruciton, moving bowels now placed Rodriguez and draining well now start FLomax once peg tube in place (4) S/P nasal polypectomy: Plan: 03/01/22 Dr Ge (5) Atrial fibrillation: Plan: permanent / stable IV metoprolol mainly for BP control Heparin drip in lieu of Eliquis now on hold due to bleeding from nose and ears which is now resolving, but plan for NG placement tomorrow so will continue to hold heparin (6) Coronary artery disease: Plan: no ischemic symptoms Resume statin/plavix once PEG tube in place (7) Stage III chronic kidney disease: Plan: lasix on hold BMPs stable BMP in am (8) DM type 2 (diabetes mellitus, type 2): Plan: controlled cont novolog SSI HbA1C 6.7% (9) HTN (hypertension): Plan: BPs were allowed to be permissively high early in stay now start to control BP continue metoprolol IV 5mg q6h and hydralazine 5mg IV q8h would be satisfied with SBP of 150-160 (10) Hypothyroid: Plan: Resume levothyroxine 50 mcg daily when able / after pEG most recent TSH wnl (2.3 in 09/2021) for now give IV LT4 25mcg q72 h (11) Hyperlipidemia: Plan: resume statin after PEG (12) GERD (gastroesophageal reflux disease): Plan: Continue Pepcid and Protonix IV (13) Memory impairment: Plan: 2nd to vascular disease h/o Parkinsonism resume Sinemet 0.5 mg TID when able after pEG (14) BPH (benign prostatic hyperplasia): Plan: resume finasteride when able start FLomax once peg in place with urinary retention (15) Thrombocytopenia: Plan: chronic, typically runs low 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 here on CBC (16) Depression: Plan: resume Cymbalta for depression/neuropathy when able (17) B12 deficiency: Plan: resolved b12 level >1000 (18) Dysphagia: Plan: known issue at baseline multiple etiologies - prior CVAs, esophageal stenosis (required dilation 2021), etc failed video swallow-for PEG as above appreciate speech assistance Plan Dispo-continued stay, needs NGT placement then return to [facility] with tube feeds Admission and Anticipated Discharge Date Admission Date: March 02, 2022 Subjective Pt sleeping when I saw him in the evening and I did not wake him but RN reports pt had a GREAT day-was actually out of bed and walking, moving right arm better and actually using that hand to grab a tissue from bedside table. Still aspirating frequently on his own saliva and speech unclear but overall improved. Tele with rate controlled afib Review of Systems Review of Systems: Unobtainable due to cognitive status Physical Exam Physical Exam: gen - NAD, sleeping, did not wake him up mouth - dry tongue nose - no epistaxis neck - no JVD heart - irregularly irregular, s1 s2, 1-2/6 systolic murmur RUSB lungs - CTA b/l abd - BS+,no ttp ext - no edema neuro - not tested Results & Data Results & Data ([facility]) Vital Signs (Past 12 Hours) Vital Signs Temp Pulse Resp BP Pulse Ox O2 Del Method 03/07/22 16:45 36.5 C 72 18 163/97 H 99 Room Air 03/07/22 12:00 36.5 C 90 16 163/68 H 97 Room Air 03/07/22 08:03 36.9 C 74 14 162/74 H 95 Room Air Laboratory Results 03/07/22 03/07/22 03/07/22 Range/Units 18:23 12:01 07:07 WBC (4.8-10.8) K/ul RBC (4.63-6.08) M/uL Hgb (14.0-18.0) g/dl Hct (40.1-51.0) % MCV (80.0-100.0) fL MCH (25.0-34.0) pg MCHC (32.0-36.0) g/dL RDW Std Deviation (36.4-46.3) fL RDW Coeff of Eben (11.5-14.5) % Plt Count (130-400) K/uL MPV (9.4-12.4) fL Immature Gran % (Auto) % Neut % (Auto) % Lymph % (Auto) % [place] % (Auto) % Eos % (Auto) % Baso % (Auto) % Neut # (Auto) (1.4-6.5) K/uL Lymph # (Auto) (1.2-3.4) K/uL [place] # (Auto) (0.24-0.82) K/uL Eos # (Auto) (0-0.50) K/uL Baso # (Auto) (0-0.2) K/uL Immature Gran # (Auto) (0.00-0.02) K/uL Toxic Vacuolation Sodium 139 (136-145) mmol/L Potassium 3.6 (3.5-5.1) mmol/L Chloride 111 H (98-107) mmol/L Carbon Dioxide 21 (21-32) mmol/L Anion Gap 7 (3-11) BUN 18 (6-23) mg/dl Creatinine 1.02 (0.6-1.4) mg/dl Est Cr Clr Drug Dosing 60.9 ml/min Est GFR ( Amer) 76.8 ml/min Est GFR (Non-Af Amer) 66.2 ml/min BUN/Creatinine Ratio 17.6 (10-20) Glucose 180 H (70-99(Fasting)) mg/dl POC Glucose 116 H 182 H (70-99) mg/dl Calcium 9.1 (8.5-10.1) mg/dl 03/07/22 03/07/22 03/06/22 Range/Units 07:07 06:22 23:59 WBC 6.49 (4.8-10.8) K/ul RBC 4.25 L (4.63-6.08) M/uL Hgb 13.0 L (14.0-18.0) g/dl Hct 37.5 L (40.1-51.0) % MCV 88.2 (80.0-100.0) fL MCH 30.6 (25.0-34.0) pg MCHC 34.7 (32.0-36.0) g/dL RDW Std Deviation 44.9 (36.4-46.3) fL RDW Coeff of Eben 14.0 (11.5-14.5) % Plt Count 93 L (130-400) K/uL MPV 11.6 (9.4-12.4) fL Immature Gran % (Auto) 0.5 % Neut % (Auto) 67.8 % Lymph % (Auto) 19.9 % [place] % (Auto) 8.3 % Eos % (Auto) 2.9 % Baso % (Auto) 0.6 % Neut # (Auto) 4.40 (1.4-6.5) K/uL Lymph # (Auto) 1.29 (1.2-3.4) K/uL [place] # (Auto) 0.54 (0.24-0.82) K/uL Eos # (Auto) 0.19 (0-0.50) K/uL Baso # (Auto) 0.04 (0-0.2) K/uL Immature Gran # (Auto) 0.03 H (0.00-0.02) K/uL Toxic Vacuolation 1+ Sodium (136-145) mmol/L Potassium (3.5-5.1) mmol/L Chloride (98-107) mmol/L Carbon Dioxide (21-32) mmol/L Anion Gap (3-11) BUN (6-23) mg/dl Creatinine (0.6-1.4) mg/dl Est Cr Clr Drug Dosing ml/min Est GFR ( Amer) ml/min Est GFR (Non-Af Amer) ml/min BUN/Creatinine Ratio (10-20) Glucose (70-99(Fasting)) mg/dl POC Glucose 200 H 157 H (70-99) mg/dl Calcium (8.5-10.1) mg/dl PG Care Time/CCT Total # of Minutes Spent Total Time Spent with Patient: Total time spent is greater than 50% in coordination of care (as documented) at patient's floor/unit and/or counseling patient: Coding Level of Care Code 75980 Subseq Hosp Care Lvl 2 Diagnoses Stroke I63.9 Status post myringotomy with tube placement of both ears Z96.22 Urinary retention R33.9 S/P nasal polypectomy Z98.890 Atrial fibrillation I48.21 Atrial fibrillation type: permanent Coronary artery disease I25.10 Stage III chronic kidney disease N18.3 DM type 2 (diabetes mellitus, type 2) E11.9; Z79.4 Diabetes mellitus fpc insulin use: with marine steward use Diabetes mellitus complication status: without complication HTN (hypertension) I10 Hypothyroid E03.9 Hypothyroidism type: acquired Hyperlipidemia E78.2 Hyperlipidemia type: mixed hyperlipidemia GERD (gastroesophageal reflux disease) K21.9 Esophagitis presence: esophagitis presence not specified Memory impairment R41.3 BPH (benign prostatic hyperplasia) N40.0 Thrombocytopenia D69.6 Depression F32.9 B12 deficiency E53.8 Dysphagia R13.10 (1) Atrial fibrillation Atrial fibrillation type: permanent Qualified Code(s): I48.21 - Permanent atrial fibrillation (2) DM type 2 (diabetes mellitus, type 2) Diabetes mellitus marine steward insulin use: with fpc use Diabetes mellitus complication status: without complication Qualified Code(s): E11.9 - Type 2 diabetes mellitus without complications; Z79.4 - intermediate (current) use of insulin (3) Hypothyroid Hypothyroidism type: acquired Qualified Code(s): E03.9 - Hypothyroidism, unspecified (4) Hyperlipidemia Hyperlipidemia type: mixed hyperlipidemia Qualified Code(s): E78.2 - Mixed hyperlipidemia (5) GERD (gastroesophageal reflux disease) Esophagitis presence: esophagitis presence not specified Qualified Code(s): K21.9 - Gastro-esophageal reflux disease without esophagitis
[2022-03-08] MEDS: INSULIN ASPART PER UNIT SC SCH ×5 (00:07→23:56)
[2022-03-08] MEDS: METOPROLOL TARTRATE 1 MG/ML VIAL IV SCH ×3 (00:28→11:44)
[2022-03-08] MEDS: hydrALAZINE HCL 20 MG/ML VIAL IV SCH ×2 (05:45→16:16)
[2022-03-08] MEDS ORDERED: WATER, STERILE 10 ML, TETRACAINE 0.4 GM TOP ONE (08:31)
[2022-03-08 10:00] LABS: Hematocrit (blood only) 36.9 % (40.1-51.0); Hemoglobin 12.6 g/dl (14.0-18.0); Mean Corpuscular Hemoglobin 30.5 pg (25.0-34.0); Mean Corpuscular Hgb Conc 34.1 g/dL (32.0-36.0); Mean Corpuscular Volume 89.3 fL (80.0-100.0); Mean Platelet Volume 11.4 fL (9.4-12.4); Platelet Count 117 K/uL (130-400); RDW Coefficient of Variation 14.1 % (11.5-14.5); RDW Standard Deviation 45.6 fL (36.4-46.3); Red Blood Count 4.13 M/uL (4.63-6.08)
[2022-03-08] MEDS: FAMOTIDINE 20 MG in SYRINGE 3 ML IV SCH (10:08)
[2022-03-08] MEDS: OFLOXACIN 0.3% 75 DROPS/5 ML BTL OTB SCH ×2 (10:08→21:21)
[2022-03-08] MEDS: ASPIRIN 300 MG SUPP PR SCH (10:08)
[2022-03-08] MEDS: D5W AND LACTATED RINGERS 1,000 ML IV SCH (10:08)
[2022-03-08] MEDS: PANTOprazole 40 MG in SYRINGE 0 ML IV SCH (10:08)
[2022-03-08 10:24] LABS: BUN Creatinine Ratio 14.4 (10-20); Creatinine Clr Calc Pharmacy 60.6 ml/min; Est GFR (Non-African American) 64.7 ml/min; Magnesium 1.9 mg/dl (1.7-2.4); Potassium 3.7 mmol/L (3.5-5.1)
[2022-03-08 10:47] LABS: Basophils # (auto) 0.02 K/uL (0-0.2); Basophils % (auto) 0.3 %; Eosinophils # (auto) 0.24 K/uL (0-0.50); Eosinophils % (auto) 3.6 %; Immature Granulocytes # (auto) 0.04 K/uL (0.00-0.02); Immature Granulocytes % (auto) 0.6 %; Lymphocytes # (auto) 1.31 K/uL (1.2-3.4); Lymphocytes % (auto) 19.8 %; Monocytes # (auto) 0.56 K/uL (0.24-0.82); Monocytes % (auto) 8.5 %; Neutrophils # (auto) 4.43 K/uL (1.4-6.5); Neutrophils % (auto) 67.2 %
--- NOTE | 2022-03-08 12:56 | Anesthesiology Consultation ---
Date of Service March 08, 2022 Assessment & Plan (1) Encounter for pre-operative examination: History Surgery Operation Date: 03/08/22 09:55 Proposed Procedures p Endopscopic Sinus Debridement, Placement NG Tube Nasal using Endoscope - Britt Ge MD Height/Weight Height: 5 ft 11 in Weight: 97.1 kg Allergies Allergy/AdvReac Type Severity Reaction Status Date / Time hydrocodone AdvReac Mild Dizziness, Verified 03/01/22 05:55 [From Panlor Nausea (hydrocodone-acetamin)] oxycodone AdvReac Mild N/V Verified 03/01/22 05:55 tramadol AdvReac Mild Confusion Verified 03/01/22 05:55 Medications Home Medications Medication Instructions Recorded Confirmed Last Taken apixaban 2.5 mg tablet (Eliquis) 2.5 mg PO BID #180 tabs 08/21/20 03/02/22 02/27/22 08:00 atorvastatin 80 mg tablet 80 mg PO HS #90 tabs 08/21/20 03/02/22 02/27/22 20:30 finasteride 5 mg tablet 5 mg PO QAM #90 tabs 08/21/20 03/02/22 02/28/22 08:00 levothyroxine 50 mcg tablet 50 mcg PO QAM #90 tabs 08/21/20 03/02/22 02/28/22 08:00 triamcinolone acetonide 0.1 % 1 applic topical BID #30 grams 10/02/20 03/01/22 05/04/21 08:00 topical cream glycerin 2 drp ophthalmic (eye) BID 10/17/20 03/02/22 02/28/22 08:00 blood sugar diagnostic (OneTouch #100 ea 10/18/20 02/22/22 Unknown Ultra Blue Test Strip) lancets 33 gauge (OneTouch Delica #100 ea 10/18/20 02/22/22 Unknown Plus Lancet) blood-glucose meter (OneTouch #1 ea 10/31/20 02/22/22 Unknown Ultra2 Meter) methylcellulose (with sugar) 2 2 g PO DAILY #454 grams 01/19/21 03/02/22 02/28/22 08:00 gram/19 gram oral powder (Fiber Therapy (methylcellulose-sugar)) pen needle, diabetic 32 gauge x #100 ea 02/15/21 02/22/22 Unknown " (BD Ultra-Fine Mary Carmen Pen Needle) famotidine 20 mg tablet 20 mg PO BID #60 tabs 03/28/21 03/02/22 02/28/22 08:00 docusate sodium 100 mg capsule 100 mg PO BID #60 caps 04/03/21 03/02/22 02/28/22 08:00 hydrocortisone 2.5 % topical cream 1 applic IN DAILY PRN hemorrhoids 04/09/21 03/02/22 Unknown with perineal applicator #30 grams pregabalin 100 mg capsule 100 mg PO TID #90 caps 04/19/21 03/02/22 02/28/22 08:00 diclofenac sodium 1 % topical gel 4 g topical QID PRN Pain 05/04/21 03/02/22 Unknown carbidopa 25 mg-levodopa 100 mg 0.5 tab PO TID #45 tabs 05/21/21 03/02/22 03/01/22 04:30 tablet (Sinemet) magnesium oxide 400 mg PO BID #60 tabs 06/04/21 03/02/22 02/28/22 08:00 clopidogrel 75 mg tablet 75 mg PO QAM #90 tabs 06/11/21 03/02/22 02/28/22 08:00 acetaminophen 325 mg tablet 650 mg PO QID PRN Pain 02/04/22 03/02/22 Unknown cyanocobalamin (vitamin B-12) 1,000 mcg PO DAILY 02/04/22 03/02/22 02/28/22 08:00 1,000 mcg tablet duloxetine 60 mg capsule,delayed 30 mg PO QAM 02/04/22 03/02/22 02/28/22 08:00 release furosemide 20 mg tablet 40 mg PO 3XWK 02/04/22 03/02/22 02/27/22 08:00 insulin NPH-regular 70-30 U-100 30 unit subcut BID 02/04/22 03/02/22 02/28/22 08:00 insulin 100 unit/mL subcutaneous pen (Novolin 70-30 FlexPen U-100 Insulin) insulin aspart U-100 100 unit/mL 1 sliding scale dose subcut 02/04/22 03/02/22 Unknown subcutaneous solution (Novolog USEASDIRECTD U-100 Insulin aspart) lisinopril 40 mg tablet 40 mg PO DAILY 02/04/22 03/02/22 02/28/22 08:00 magnesium hydroxide 800 mg/5 mL 7.75 mg PO DIRECTED PRN 02/04/22 03/02/22 Unknown oral suspension Constipation ondansetron HCl 4 mg tablet 4 mg PO Q8H PRN Nausea 02/04/22 03/02/22 Unknown pantoprazole 40 mg tablet,delayed 40 mg PO DAILY 02/04/22 03/02/22 02/28/22 08:00 release semaglutide 0.25 mg or 0.5 mg (2 0.5 mg subcut WK 02/04/22 03/02/22 02/26/22 08:00 mg/1.5 mL) subcutaneous pen injector (Ozempic) sodium phosphates 19 gram-7 118 ml [place] DAILY PRN Constipation 02/04/22 03/02/22 Unknown gram/118 mL enema (Enema) ofloxacin 0.3 % ear drops 5 drp otic (ear) BID #5 mL 03/01/22 03/02/22 Unknown tramadol 50 mg tablet 50 mg PO Q8H PRN Pain #20 tabs 03/01/22 03/02/22 Unknown Active Medications Generic Name Dose Route Start Last Admin Trade Name Freq PRN Reason Stop Dose Admin Aspirin 300 mg 03/05/22 09:00 03/08/22 10:08 Aspirin 300 Mg Supp IN 04/04/22 08:59 300 mg DAILY STEPH Administration Atorvastatin Calcium 80 mg 03/02/22 21:00 03/04/22 19:18 Atorvastatin 40 Mg Tab PO 04/01/22 20:59 Not Given HS STEPH Carbidopa/Levodopa 0.5 tab 03/02/22 14:40 03/05/22 12:13 Carbidopa/Levodopa 25/100mg Tab PO 04/01/22 14:39 Not Given TID STEPH Clopidogrel Bisulfate 75 mg 03/03/22 09:00 03/03/22 10:03 Clopidogrel Bisulfate 75 Mg Tab PO 04/02/22 08:59 Not Given QAM STEPH Cyanocobalamin 1,000 mcg 03/03/22 09:00 03/05/22 06:54 Cyanocobalamin (B-12) 500 Mcg Tablet PO 04/02/22 08:59 Not Given DAILY STEPH Docusate Sodium 100 mg 03/02/22 21:00 03/05/22 06:54 Docusate Sodium 100 Mg Cap PO 04/01/22 20:59 Not Given BID STEPH Duloxetine HCl 30 mg 03/03/22 09:00 03/05/22 06:54 Duloxetine Hcl 30 Mg Cap PO 04/02/22 08:59 Not Given QAM STEPH Finasteride 5 mg 03/03/22 09:00 03/05/22 06:54 Finasteride 5 Mg Tab PO 04/02/22 08:59 Not Given QAM STEPH Hydralazine HCl 5 mg 03/04/22 22:00 03/08/22 05:45 Hydralazine Hcl 20 Mg/Ml Vial IV 04/03/22 21:59 5 mg Q8 STEPH Administration Famotidine 20 mg/ Syringe 5 mls @ 2.5 mls/min 03/03/22 09:00 03/08/22 10:08 IV 04/02/22 08:59 2.5 mls/min Q12H STEPH Administration Pantoprazole Sodium 40 mg/ 10 mls @ 5 mls/min 03/03/22 09:00 03/08/22 10:08 Syringe IV 04/02/22 08:59 5 mls/min DAILY STEPH Administration Heparin Sodium/Dextrose 25,000 units in 500 mls @ 0 mls/hr 03/03/22 10:30 04/18 13:53 Heparin Sodium/Dextrose IV 04/02/22 10:29 Infused .Q0M STEPH Titration Protocol 0 UNITS/HR Levothyroxine Sodium 25 mcg/ 1.25 mls @ 2 mls/min 03/06/22 09:00 03/06/22 08:11 Syringe IV 04/05/22 08:59 2 mls/min Q72H STEPH Administration Protocol Dextrose/Lactated Ringer's 1,000 mls @ 80 mls/hr 03/06/22 08:45 03/08/22 10:08 D5w And Lactated Ringers IV 04/05/22 08:44 80 mls/hr .[id number] STEPH Administration Insulin Aspart 0 units 03/04/22 06:00 03/08/22 05:53 Insulin Aspart Per Unit SC 04/03/22 05:59 1 units Q6 STEPH Administration Levothyroxine Sodium 50 mcg 03/03/22 09:00 03/05/22 07:14 Levothyroxine Sodium 50 Mcg Tablet PO 04/02/22 08:59 Not Given QAM STEPH Metoprolol Tartrate 5 mg 03/04/22 12:15 03/08/22 11:44 Metoprolol Tartrate 1 Mg/Ml Vial IV 04/03/22 12:14 5 mg Q6 STEPH Administration Miscellaneous 1 each 03/02/22 16:00 03/08/22 09:02 Order Awaiting Action N/A 04/01/22 15:59 Not Given QS STEPH Ofloxacin 4 drops 03/05/22 13:25 03/08/22 10:08 Ofloxacin 0.3% 75 Drops/5 Ml Btl OTB 03/15/22 13:24 4 drops BID STEPH Administration Pregabalin 100 mg 03/02/22 14:40 03/05/22 12:28 Pregabalin 100 Mg Cap PO 04/01/22 14:39 Not Given TID STEPH Past Medical History Medical History Abnormal tympanic membrane R/L Atrial fibrillation Paroxysmal BPH (benign prostatic hyperplasia) CKD (chronic kidney disease) Coronary artery disease s/p CABG (2010) Depression DM type 2 (diabetes mellitus, type 2) GERD (gastroesophageal reflux disease) Hearing deficit HTN (hypertension) Hyperlipidemia Hypothyroid Kidney stones LVH (left ventricular hypertrophy) Focal thickening of the basal septum with no evidence of LVOT obstruction, Mild asymmetric LVH per 12/2018 echo Major depressive disorder Memory impairment Myocardial Infarction 2004 Follows with [facility] cardiology/Dr. 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 Yates Transient hypotension Upper respiratory infection Vocal cord paralysis Past Family History Family History Father Diabetes Coronary heart disease Mother Diabetes Coronary heart disease Myocardial infarction Sister Breast cancer Brother Coronary heart disease Son Family history of diabetes mellitus Family/Other Family history of diabetes mellitus grandson Other No family history of adverse response to anesthesia Denies family history of Ovarian cancer Prostate cancer Colorectal cancer Past Surgical History Surgical History History of bilateral cataract extraction History of esophagogastroduodenoscopy (EGD) History of kidney surgery History of lithotripsy x2 History of lumbar laminectomy History of tooth extraction Hx of CABG 2003 ([facility] [place]) Social History Smoking Status: Never smoker Hx Alcohol Use: No Hx Substance Use: No substance use type: does not use Physical Exam Vital Signs Last Vital Signs Temp 37.4 C 03/08/22 07:05 Pulse 78 03/08/22 11:44 Resp 19 03/08/22 11:37 BP 173/81 H 03/08/22 11:44 Pulse Ox 98 03/08/22 11:37 O2 Del Method 03/08/22 11:37 Testing Laboratory Results 03/08/22 09:43 03/08/22 09:43 PT 11.3 Seconds (9.0-12.0) 03/04/22 08:11 INR 1.1 (0.9-1.1) 03/04/22 08:11 APTT 31.2 Seconds (21.0-31.0) H 03/06/22 11:10 Hemoglobin A1c 6.7 % (4.5-5.6) H 03/03/22 06:38 03/08/22 03/08/22 11:30 05:38 POC Glucose 164 H 147 H Electrocardiogram Date: 03/08/22 Atrial fibrillation Abnormal ECG When compared with ECG of 10-AUG-2021 11:43, No significant change was found Confirmed by Romie Becerra ([id number]) on 03/03/2022 9:07:43 AM Chest X-Ray Date: 03/02/22 IMPRESSION: 1. Cardiomegaly with mild pulmonary vascular congestion. 2. No pacemaker is identified.
--- NOTE | 2022-03-08 12:57 | ENT Consultation ---
Date of Consultation March 08, 2022 Assessment & Plan (1) Feeding difficulties: I will place feeding tube with direct visualization. (2) Stroke: (3) S/P nasal polypectomy: I will debride the sinuses endoscopically. The procedures were explained to the son Curt who appeared to understand and wishes to proceed with debridement and placement of the feeding tube. History of Present Illness Reason for Consultation: Placement of feeding tube. 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 Unfortunately had CVA the day after surgery and readmitted. Still has hemiparesis and dysphagia. Not a candidate for gastric feeding tube. And nasal feeding tube was requested by medicine. He also does need endoscopic debridement. Allergies Allergy/AdvReac Type Severity Reaction Status Date / Time hydrocodone AdvReac Mild Dizziness, Verified 03/01/22 05:55 [From Panlor Nausea (hydrocodone-acetamin)] oxycodone AdvReac Mild N/V Verified 03/01/22 05:55 tramadol AdvReac Mild Confusion Verified 03/01/22 05:55 Home Medications Medication Instructions Recorded Confirmed Type apixaban 2.5 mg tablet (Eliquis) 2.5 mg PO BID #180 tabs 08/21/20 03/02/22 Rx atorvastatin 80 mg tablet 80 mg PO HS #90 tabs 08/21/20 03/02/22 Rx finasteride 5 mg tablet 5 mg PO QAM #90 tabs 08/21/20 03/02/22 Rx levothyroxine 50 mcg tablet 50 mcg PO QAM #90 tabs 08/21/20 03/02/22 Rx triamcinolone acetonide 0.1 % 1 applic topical BID #30 grams 10/02/20 03/01/22 Rx topical cream glycerin 2 drp ophthalmic (eye) BID 10/17/20 03/02/22 History blood sugar diagnostic (OneTouch #100 ea 10/18/20 02/22/22 Rx Ultra Blue Test Strip) lancets 33 gauge (OneTouch Delica #100 ea 10/18/20 02/22/22 Rx Plus Lancet) blood-glucose meter (OneTouch #1 ea 10/31/20 02/22/22 Rx Ultra2 Meter) methylcellulose (with sugar) 2 2 g PO DAILY #454 grams 01/19/21 03/02/22 Rx gram/19 gram oral powder (Fiber Therapy (methylcellulose-sugar)) pen needle, diabetic 32 gauge x #100 ea 02/15/21 02/22/22 Rx 532" (BD Ultra-Fine Mary Carmen Pen Needle) famotidine 20 mg tablet 20 mg PO BID #60 tabs 03/28/21 03/02/22 Rx docusate sodium 100 mg capsule 100 mg PO BID #60 caps 04/03/21 03/02/22 Rx hydrocortisone 2.5 % topical cream 1 applic [place] DAILY PRN hemorrhoids 04/09/21 03/02/22 Rx with perineal applicator #30 grams pregabalin 100 mg capsule 100 mg PO TID #90 caps 04/19/21 03/02/22 Rx diclofenac sodium 1 % topical gel 4 g topical QID PRN Pain 05/04/21 03/02/22 History carbidopa 25 mg-levodopa 100 mg 0.5 tab PO TID #45 tabs 05/21/21 03/02/22 Rx tablet (Sinemet) magnesium oxide 400 mg PO BID #60 tabs 06/04/21 03/02/22 Rx clopidogrel 75 mg tablet 75 mg PO QAM #90 tabs 06/11/21 03/02/22 Rx acetaminophen 325 mg tablet 650 mg PO QID PRN Pain 02/04/22 03/02/22 History cyanocobalamin (vitamin B-12) 1,000 mcg PO DAILY 02/04/22 03/02/22 History 1,000 mcg tablet duloxetine 60 mg capsule,delayed 30 mg PO QAM 02/04/22 03/02/22 History release furosemide 20 mg tablet 40 mg PO 3XWK 02/04/22 03/02/22 History insulin NPH-regular 70-30 U-100 30 unit subcut BID 02/04/22 03/02/22 History insulin 100 unit/mL subcutaneous pen (Novolin 70-30 FlexPen U-100 Insulin) insulin aspart U-100 100 unit/mL 1 sliding scale dose subcut 02/04/22 03/02/22 History subcutaneous solution (Novolog USEASDIRECTD U-100 Insulin aspart) lisinopril 40 mg tablet 40 mg PO DAILY 02/04/22 03/02/22 History magnesium hydroxide 800 mg/5 mL 7.75 mg PO DIRECTED PRN 02/04/22 03/02/22 History oral suspension Constipation ondansetron HCl 4 mg tablet 4 mg PO Q8H PRN Nausea 02/04/22 03/02/22 History pantoprazole 40 mg tablet,delayed 40 mg PO DAILY 02/04/22 03/02/22 History release semaglutide 0.25 mg or 0.5 mg (2 0.5 mg subcut WK 02/04/22 03/02/22 History mg/1.5 mL) subcutaneous pen injector (Ozempic) sodium phosphates 19 gram-7 118 ml [place] DAILY PRN Constipation 02/04/22 03/02/22 History gram/118 mL enema (Enema) ofloxacin 0.3 % ear drops 5 drp otic (ear) BID #5 mL 03/01/22 03/02/22 Rx tramadol 50 mg tablet 50 mg PO Q8H PRN Pain #20 tabs 03/01/22 03/02/22 Rx Patient History Medical History Abnormal tympanic membrane R/L Atrial fibrillation Paroxysmal BPH (benign prostatic hyperplasia) CKD (chronic kidney disease) Coronary artery disease s/p CABG (2010) Depression DM type 2 (diabetes mellitus, type 2) GERD (gastroesophageal reflux disease) Hearing deficit HTN (hypertension) Hyperlipidemia Hypothyroid Kidney stones LVH (left ventricular hypertrophy) Focal thickening of the basal septum with no evidence of LVOT obstruction, Mild asymmetric LVH per 12/2018 echo Major depressive disorder Memory impairment Myocardial Infarction 2004 Follows with [facility] [place] cardiology/Dr. 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 Yates Transient hypotension Upper respiratory infection Vocal cord paralysis Surgical History History of bilateral cataract extraction History of esophagogastroduodenoscopy (EGD) History of kidney surgery History of lithotripsy x2 History of lumbar laminectomy History of tooth extraction Hx of CABG 2003 ([facility] [place]) Family History Father Diabetes Coronary heart disease Mother Diabetes Coronary heart disease Myocardial infarction Sister Breast cancer Brother Coronary heart disease Son Family history of diabetes mellitus Family/Other Family history of diabetes mellitus grandson Other No family history of adverse response to anesthesia Denies family history of Ovarian cancer Prostate cancer Colorectal cancer Social History Smoking Status: Never smoker Second Hand Exposure: No; Hx Alcohol Use: No Hx Substance Use: No Preferred Language: Arabic Communication Ability: Impaired Visual Impairment: No Limitations Hearing Ability: Use of Hearing Aid Clinical Application Specialist Required: No Beliefs That Will Affect Care: None marital status: Current Living Situation: Senior Care Current Living Situation Comment: Center [facility] current occupational status: retired current occupation: used to work in [employer] How many Children do You have: 1 Feels Safe at Home: Yes Childhood Exposure to Second-Hand Smoke: Yes caffeine: Yes Dental Care, Regularly: No Physical Activity Frequency: Does not Exercise Seatbelt Use: always Sunscreen Use: No Assistive Devices: Walker and Wheelchair Results & Data ([facility]) Vital Signs (Past 12 Hours) Vital Signs Temp Pulse Pulse Resp BP BP BP 03/08/22 12:53 36.8 C 78 20 174/88 H 03/08/22 11:44 78 173/81 H 03/08/22 11:37 78 19 173/81 H 03/08/22 07:05 37.4 C 72 20 174/78 H 03/08/22 05:45 80 174/89 H 03/08/22 03:37 36.9 C 75 20 154/85 H Pulse Ox O2 Del Method 03/08/22 12:53 97 Room Air 03/08/22 11:44 03/08/22 11:37 98 Room Air 03/08/22 07:05 98 Room Air 03/08/22 05:45 03/08/22 03:37 95 Room Air
[2022-03-08] MEDS ORDERED: BACITRACIN OINT 15 GM TUBE ONE (13:00)
[2022-03-08] MEDS ORDERED: GELATIN SPONGE 12-7MM ONE (13:01)
[2022-03-08] MEDS ORDERED: LIDOCAINE 4% INH SOLN 4 ML BTL ONE (13:01)
[2022-03-08] MEDS ORDERED: TRIAMCINOLONE ACET 40 MG/ML VIAL ONE (13:01)
[2022-03-08] MEDS ORDERED: LIDOCAINE 2%/EPINEPHRINE 1:100,000 20ML ONE (13:01)
[2022-03-08] MEDS ORDERED: EpINEphrine HCL INJ 1 MG/ML 1ML SYRINGE ONE (13:02)
[2022-03-08] MEDS ORDERED: OXYMETAZOLINE 0.05% 30 ML BTL ONE (13:38)
--- NOTE | 2022-03-08 14:17 | Operative Report ---
PG Post Operative Report Pre & Post Diagnosis Operation Date: 03/08/22 09:55 Pre-Op Diagnosis: Dysphagia Post-Op Diagnosis: Dysphagia I identified the patient and participated in the time-out.: Yes Procedure Operation Date: 03/08/22 09:55 Actual Procedures p Endopscopic Sinus Debridement, Placement NasoGastric Tube Nasal using Endoscope(Not Applicable) - Britt Ge MD Surgeon Britt Ge MD Finance Manager None Estimated Blood Loss 0 Findings Consistent with Post-Op Diagnosis Blood clots both middle meatus Specimens None Anesthesia Type Local Description of Procedure He was brought to the operating room, placed in a reclined position, properly identified, draped in the usual sterile manner. Nose was anesthetized using topical tetracaine, 5 cc, mixed with 1 cc of epinephrine on cottonoids. Cottonoids were wrung dry and placed in the nostrils for anesthesia. After adequate anesthesia I debrided both ethmoid cavities removing some clots and lysing some adhesions. Possisep packing was in place. Not totally debrided to allow the packing to dissolve and to prevent further bleeding. Dobbhoff feeding tube was placed via the right nares. He had inverted papilloma removed from the left nares. Endoscope was used to guide the catheter at the floor the nose into the nasopharynx and then down into the oral cavity and then into the esophagus and stomach. Feeding tube was advanced to [address] He tolerated procedure well was taken recovery area in satisfactory condition. I attest to the content of the Intraoperative Record and any orders documented therein. Any exceptions are noted below.
--- NOTE | 2022-03-08 14:55 | XRay Report ---
XR KUB/Abdomen 1 view CLINICAL HISTORY: feeding tube placement TECHNIQUE: 1 view of the abdomen was obtained. Comparison: Comparison is made to abdomen radiograph 03/05/2022 FINDINGS: An enteric tube tip projects over the distal stomach. The osseous structures are grossly unremarkable . The bowel gas pattern is nonobstructive. A moderate amount of stool is noted within the large bowel . IMPRESSION: Satisfactory position of enteric tube in the distal stomach. ACT 112: Negative or not required by law. Electronically signed by: Doc Thomas M.D. 03/08/2022 2:53 PM
--- NOTE | 2022-03-08 15:22 | Anesthesiology Progress Note ---
Date of Service March 08, 2022 Anesthesia Post Procedure Vital Signs Vital Signs: Temp Pulse Pulse Pulse Resp BP BP 03/08/22 08:00 70 03/08/22 14:55 76 14 179/108 H 03/08/22 14:45 36.5 C 80 14 181/89 H 03/08/22 14:35 82 14 183/85 H 03/08/22 14:25 80 16 178/93 H 03/08/22 14:15 36.6 C 83 20 177/73 H 03/08/22 12:53 36.8 C 78 20 174/88 H 03/08/22 11:44 78 173/81 H 03/08/22 11:37 78 19 03/08/22 07:05 37.4 C 72 20 174/78 H 03/08/22 05:45 80 174/89 H 03/08/22 03:37 36.9 C 75 20 154/85 H 03/08/22 00:28 78 156/87 H 03/07/22 23:20 37.1 C 78 16 156/87 H 03/07/22 23:14 78 03/07/22 19:31 36.8 C 69 17 158/87 H 03/07/22 16:45 36.5 C 72 18 BP Pulse Ox O2 Del Method 03/08/22 08:00 03/08/22 14:55 99 Room Air 03/08/22 14:45 96 Room Air 03/08/22 14:35 99 Room Air 03/08/22 14:25 98 Room Air 03/08/22 14:15 99 Room Air 03/08/22 12:53 97 Room Air 03/08/22 11:44 03/08/22 11:37 173/81 H 98 Room Air 03/08/22 07:05 98 Room Air 03/08/22 05:45 03/08/22 03:37 95 Room Air 03/08/22 00:28 03/07/22 23:20 98 Room Air 03/07/22 23:14 03/07/22 19:31 99 Room Air 03/07/22 16:45 163/97 H 99 Room Air Transfer of Care Handoff Completed per policy Notes Mental Status: alert / awake / arousable Patient Amnestic to Procedure: Yes Nausea / Vomiting: adequately controlled Pain: adequately controlled Airway Patency, RR, SpO2: stable & adequate BP & HR: stable & adequate Hydration State: stable & adequate Anesthetic Complications: no major complications apparent Notes: The patient's procedure was done under local with sedation. He tolerated it well.
[2022-03-08] MEDS ORDERED: Heparin IV Adult Wt-Based Standard *NO* Bolus Protocol IV SCH (17:00)
[2022-03-08] MEDS ORDERED: hydrALAZINE HCL 20 MG/ML VIAL IV PRN (17:05)
[2022-03-08] MEDS ORDERED: ACETAMINOPHEN SUSP 325 MG/10.15 ML UDC PEG PRN (17:13)
[2022-03-08 18:13] LABS: Hematocrit (blood only) 37.7 % (40.1-51.0); Hemoglobin 12.9 g/dl (14.0-18.0); Mean Corpuscular Hemoglobin 30.4 pg (25.0-34.0); Mean Corpuscular Hgb Conc 34.2 g/dL (32.0-36.0); Mean Corpuscular Volume 88.9 fL (80.0-100.0); Mean Platelet Volume 11.5 fL (9.4-12.4); Platelet Count 123 K/uL (130-400); RDW Coefficient of Variation 14.1 % (11.5-14.5); RDW Standard Deviation 45.5 fL (36.4-46.3); Red Blood Count 4.24 M/uL (4.63-6.08); White Blood Count 7.94 K/ul (4.8-10.8)
[2022-03-08 18:27] LABS: INR 1.1 (0.9-1.1); Partial Thromboplastin Ratio 1.1; Prothrombin Time 11.8 Seconds (9.0-12.0)
[2022-03-08] MEDS: HEPARIN SODIUM/DEXTROSE 25,000 UNITS/500 ML BAG IV SCH (18:34)
[2022-03-08] MEDS: TUBE FEEDING WATER FLUSH NG SCH ×2 (18:41→21:36)
[2022-03-08 18:48] LABS: Basophils # (auto) 0.03 K/uL (0-0.2); Basophils % (auto) 0.4 %; Eosinophils # (auto) 0.16 K/uL (0-0.50); Immature Granulocytes # (auto) 0.03 K/uL (0.00-0.02); Immature Granulocytes % (auto) 0.4 %; Lymphocytes # (auto) 1.05 K/uL (1.2-3.4); Lymphocytes % (auto) 13.2 %; Monocytes # (auto) 0.63 K/uL (0.24-0.82); Monocytes % (auto) 7.9 %; Neutrophils # (auto) 6.04 K/uL (1.4-6.5); Neutrophils % (auto) 76.1 %
[2022-03-08] MEDS: FIBERSOURCE HN 1.2 CAL 1000 ML BAG NG SCH (18:58)
--- NOTE | 2022-03-08 20:02 | Hospitalist Progress Note ---
Date of Service March 08, 2022 Assessment & Plan (1) Stroke: Plan: Left basal ganglia/posterior limb of internal capsule. Thrombotic (off plavix recently) vs embolic etiology both possible (known aalmaz, was off Eliquis for his recent sinus surgery). Appreciate neurology consult. Appreciate PT, OT, speech. Dense aphasia, right arm and leg weakness which is improving a bit over the last 2 days. Still with significant aphasia and dysphagia although speech more clear on 03/08 Has had prior strokes Failed bedside swallow two days in a row. Video swallow on 03/05/22 with aspiration of thin liquids and then aborted due to cyanotic episode somewhat caused by aspiration of epistaxis as well Son reports previous need for Heimlich maneuver and other choking episodes at [place] in the last 6 months, required pureed diet prior to this stroke For stroke prevention -was placed on heparin drip in lieu of Eliquis, but then placed on hold due to bleeding from sinuses coming out ears through TM tubes (recent sinus surgery)-bleeding has now stopped Patient and son agreeable for PEG tube placement-consult GI--> would prefer trial of Coresafe tube feeds and if no recovery of swallowing function in next 2 weeks then plan for PEG -consulted ENT for Coresafe placement due to 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 Ge performed this on 03/08 Consult Nutrition for tube feed recommendations-appreciate and started TFs , titrate up to goal Restart po meds now that tube in place-Plavix, ASA, BP meds -continue maintenance fluids to D5LR at 80mL/hr until at goal TFs Now with NGT in place--> change rectal aspirin to Plavix via NG -once we ensure no further epistaxis and blood from ears, can switch heparin gtt back to ELiquis per NGT (2) Status post myringotomy with tube placement of both ears: Plan: 03/01/22 - s/p Bilateral Myringotomy and Tube Insertion, Image guided bilateral endoscopic sinus surgery with bilateral frontal, total ethmoid, and maxillary sinus antrostomies Dr Ge surgery performed due to chronic sinus issues/sinusitis, polyps, chronic OME b/l, etc. 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 Dr Ge is aware of pt's admission Prior hospitalist attending discussed placing patient on heparin - ENT felt acceptable to do so; blood in sinuses seen on recent imaging likely OLD from his surgery no major epistaxis since admission except one brief episode during video swallow 03/05 having some mild epistaxis and bloody drainage from ears--use Afrin as needed for bleeding--> now resolved restart heparin gtt (3) Urinary retention: Plan: retaining 1 L urine on 03/05 after noting abd pain and distension checked KUB also due to abd distension an dpain-no obstruciton, moving bowels now placed Rodriguez and draining well now start FLomax once peg tube in place (4) S/P nasal polypectomy: Plan: 03/01/22 Dr Ge (5) Atrial fibrillation: Plan: permanent / stable IV metoprolol mainly for BP control but now stopped after able to restart BP meds through NGT watch rates on tele Heparin drip in lieu of Eliquis now on hold due to bleeding from nose and ears which is now resolving, restart heparin gtt now and plan to restart Eliquis once no more bleeding ensured (6) Coronary artery disease: Plan: no ischemic symptoms Resume statin/plavix now that NGT in place (7) Stage III chronic kidney disease: Plan: lasix on hold BMPs stable BMP in am (8) DM type 2 (diabetes mellitus, type 2): Plan: controlled cont novolog SSI HbA1C 6.7% (9) HTN (hypertension): Plan: BPs were allowed to be permissively high early in stay now start to control BP dc metoprolol IV 5mg q6h now that can take home and make hydralazine 5mg IV q8h prn SBP>180 restart home lisinopril 40mg per NGT (10) Hypothyroid: Plan: Resume levothyroxine 50 mcg daily most recent TSH wnl (2.3 in 09/2021) (11) Hyperlipidemia: Plan: resume statin (12) GERD (gastroesophageal reflux disease): Plan: dc IV Pepcid and Protonix IV and convert to Prevacid per NGT (13) 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 He is awake and alert, speech more intelligible today. He is askin for another blanket as he is cold. Also asks if he can take out his NGT. Tele with rate controlled Afib Review of Systems Review of Systems: All systems reviewed & are unremarkable except as noted in HPI & below Physical Exam Physical Exam: gen - NAD,Alet, awake, interactive, extremely hard of hearing mouth - dry tongue nose - no epistaxis neck - no JVD heart - irregularly irregular, s1 s2, 1-2/6 systolic murmur RUSB lungs - CTA b/l abd - BS+,no ttp ext - no edema neuro - 4/5 strength in RLE, 3/5 RUE, 5/5 otherwise, +right facial droop, dysarthria Results & Data Results & Data ([facility]) Vital Signs (Past 12 Hours) Vital Signs Temp Pulse Pulse Pulse Resp BP BP 03/08/22 19:55 37.2 C 80 18 157/98 H 03/08/22 16:50 152/94 H 03/08/22 16:11 36.8 C 77 18 180/96 H 03/08/22 08:00 70 03/08/22 14:55 76 14 179/108 H 03/08/22 14:45 36.5 C 80 14 181/89 H 03/08/22 14:35 82 14 183/85 H 03/08/22 14:25 80 16 178/93 H 03/08/22 14:15 36.6 C 83 20 177/73 H 03/08/22 12:53 36.8 C 78 20 174/88 H 03/08/22 11:44 78 173/81 H 03/08/22 11:37 78 19 BP Pulse Ox O2 Del Method 03/08/22 19:55 96 Room Air 03/08/22 16:50 03/08/22 16:11 98 Room Air 03/08/22 08:00 03/08/22 14:55 99 Room Air 03/08/22 14:45 96 Room Air 03/08/22 14:35 99 Room Air 03/08/22 14:25 98 Room Air 03/08/22 14:15 99 Room Air 03/08/22 12:53 97 Room Air 03/08/22 11:44 03/08/22 11:37 173/81 H 98 Room Air Laboratory Results 03/08/22 18:00 03/08/22 09:43 PG Care Time/CCT Total # of Minutes Spent Total Time Spent with Patient: Total time spent is greater than 50% in coordination of care (as documented) at patient's floor/unit and/or counseling patient: Coding Level of Care Code 10803 Subseq Hosp Care Lvl 3 Diagnoses Stroke I63.9 Status post myringotomy with tube placement of both ears Z96.22 Urinary retention R33.9 S/P nasal polypectomy Z98.890 Atrial fibrillation I48.21 Atrial fibrillation type: permanent Coronary artery disease I25.10 Stage III chronic kidney disease N18.3 DM type 2 (diabetes mellitus, type 2) E11.9; Z79.4 Diabetes mellitus fci insulin use: with termite technician use Diabetes mellitus complication status: without complication HTN (hypertension) I10 Hypothyroid E03.9 Hypothyroidism type: acquired Hyperlipidemia E78.2 Hyperlipidemia type: mixed hyperlipidemia GERD (gastroesophageal reflux disease) K21.9 Esophagitis presence: esophagitis presence not specified Memory impairment R41.3 BPH (benign prostatic hyperplasia) N40.0 Thrombocytopenia D69.6 Depression F32.9 B12 deficiency E53.8 Dysphagia R13.10 (1) Atrial fibrillation Atrial fibrillation type: permanent Qualified Code(s): I48.21 - Permanent atrial fibrillation (2) DM type 2 (diabetes mellitus, type 2) Diabetes mellitus fci insulin use: with fci use Diabetes mellitus complication status: without complication Qualified Code(s): E11.9 - Type 2 diabetes mellitus without complications; Z79.4 - middle or intermediate school principal (current) use of insulin (3) Hypothyroid Hypothyroidism type: acquired Qualified Code(s): E03.9 - Hypothyroidism, unsp ecified (4) Hyperlipidemia Hyperlipidemia type: mixed hyperlipidemia Qualified Code(s): E78.2 - Mixed hyperlipidemia (5) GERD (gastroesophageal reflux disease) Esophagitis presence: esophagitis presence not specified Qualified Code(s): K21.9 - Gastro-esophageal reflux disease without esophagitis
[2022-03-08] MEDS: DOCUSATE SODIUM SYRUP 100 MG/10 ML UDC NG SCH (21:21)
[2022-03-08] MEDS: TAMSULOSIN HCL 0.4 MG CAP NG SCH (21:22)
[2022-03-08] MEDS: ATORVASTATIN 40 MG TAB NG SCH (21:22)
[2022-03-08] MEDS: CARBIDOPA/LEVODOPA 25/100MG TAB NG SCH (21:22)
[2022-03-08] MEDS: PREGABALIN 100 MG CAP PO SCH (21:24)
[2022-03-09 00:56] LABS: Partial Thromboplastin Ratio 2.3
[2022-03-09 00:57] LABS: Partial Thromboplastin Time 63.6 Seconds (21.0-31.0)
[2022-03-09] MEDS: D5W AND LACTATED RINGERS 1,000 ML IV SCH ×2 (01:34→16:55)
--- NOTE | 2022-03-09 01:51 | Communication Note ---
Date of Service: March 09, 2022 Notified by nursing of a few periods of apnea while sleeping, w/ sats to low 50s. Woke up and placed on 4L NC. Sats 98. Patient was admitted for stroke. Defer cpap for now as he is aspiration risk. Monitor clinically and follow pulse ox.
[2022-03-09] MEDS: TUBE FEEDING WATER FLUSH NG SCH ×6 (02:06→21:20)
[2022-03-09] MEDS: LEVOTHYROXINE SODIUM 50 MCG TABLET NG SCH (05:23)
[2022-03-09] MEDS: INSULIN ASPART PER UNIT SC SCH ×4 (06:01→23:50)
[2022-03-09 06:53] LABS: Basophils # (auto) 0.02 K/uL (0-0.2); Basophils % (auto) 0.3 %; Eosinophils # (auto) 0.21 K/uL (0-0.50); Eosinophils % (auto) 3.1 %; Hematocrit (blood only) 36.8 % (40.1-51.0); Hemoglobin 12.5 g/dl (14.0-18.0); Immature Granulocytes # (auto) 0.03 K/uL (0.00-0.02); Immature Granulocytes % (auto) 0.4 %; Lymphocytes % (auto) 19.3 %; Mean Corpuscular Hemoglobin 30.5 pg (25.0-34.0); Mean Corpuscular Volume 89.8 fL (80.0-100.0); Mean Platelet Volume 12.1 fL (9.4-12.4); Monocytes # (auto) 0.66 K/uL (0.24-0.82); Monocytes % (auto) 9.8 %; Neutrophils # (auto) 4.53 K/uL (1.4-6.5); Neutrophils % (auto) 67.1 %; Platelet Count 106 K/uL (130-400); RDW Coefficient of Variation 14.1 % (11.5-14.5); White Blood Count 6.75 K/ul (4.8-10.8)
[2022-03-09 07:11] LABS: BUN Creatinine Ratio 12.6 (10-20); Calcium 8.7 mg/dl (8.5-10.1); Creatinine Clr Calc Pharmacy 62.3 ml/min; Est GFR (African American) 75.9 ml/min; Est GFR (Non-African American) 65.5 ml/min; Magnesium 1.8 mg/dl (1.7-2.4); Phosphorus 2.9 mg/dl (2.5-4.9); Potassium 3.3 mmol/L (3.5-5.1)
[2022-03-09 07:12] LABS: Partial Thromboplastin Ratio 2.5
[2022-03-09] MEDS ORDERED: POTASSIUM CHLORIDE CRTAB 20 MEQ TABCR PO STA (08:39)
[2022-03-09] MEDS ORDERED: MAGNESIUM SULFATE / D5W 1 GM/100 ML BAG IV ONE (08:39)
[2022-03-09] MEDS ORDERED: POTASSIUM CHLORIDE 20 MEQ/15 ML UDC PO STA (08:47)
[2022-03-09] MEDS ORDERED: FINASTERIDE 5 MG TAB PEG SCH (09:00)
[2022-03-09] MEDS ORDERED: ASPIRIN 81 MG CHEW NG SCH (09:00)
[2022-03-09] MEDS ORDERED: SODIUM CHLORIDE 0.65% NA SOLN 45 ML (OCEAN) PRN (09:13)
--- NOTE | 2022-03-09 09:13 | Ears,Nose,Throat Progress Note ---
Date of Service March 09, 2022 Assessment & Plan (1) S/P nasal polypectomy: Plan: debrided clots yesterday, dissolvable packing in place, may use saline mist qid to keep moist and promote dissolution (2) Feeding difficulties: Plan: feeding tube in place Admission and Anticipated Discharge Date Admission Date: March 02, 2022 Subjective Alert, Physical Exam ENMT: Nose: + external nose abnormality (feeding tube in place) and + epistaxis (no further bleeding) Results & Data ([facility]) Vital Signs (Past 12 Hours) Vital Signs Temp Pulse Pulse Resp BP Pulse Ox O2 Del Method 03/09/22 07:32 36.6 C 66 18 123/66 95 Room Air 03/09/22 03:47 37.4 C 74 18 158/72 H 97 Nasal Cannula 03/08/22 23:56 37.4 C 75 18 143/74 H 99 Room Air 03/08/22 23:10 72 O2 Flow Rate 03/09/22 07:32 03/09/22 03:47 4 03/08/22 23:56 03/08/22 23:10
[2022-03-09] MEDS: CARBIDOPA/LEVODOPA 25/100MG TAB NG SCH ×3 (09:39→21:19)
[2022-03-09] MEDS: DOCUSATE SODIUM SYRUP 100 MG/10 ML UDC NG SCH ×2 (09:40→21:19)
[2022-03-09] MEDS: lisinopril 40 MG TAB PO SCH (09:41)
[2022-03-09] MEDS: CYANOCOBALAMIN (B-12) 500 MCG TABLET NG SCH (09:42)
[2022-03-09] MEDS: CLOPIDOGREL BISULFATE 75 MG TAB PEG SCH (09:42)
[2022-03-09] MEDS: LANSOPRAZOLE 15 MG SOLTAB NG SCH (09:42)
[2022-03-09] MEDS: POLYETHYLENE (MIRALAX) 17 GM PACK NG SCH (09:42)
[2022-03-09] MEDS: OFLOXACIN 0.3% 75 DROPS/5 ML BTL OTB SCH ×2 (09:43→21:21)
[2022-03-09] MEDS: PREGABALIN 100 MG CAP PO SCH ×3 (10:16→21:20)
[2022-03-09] MEDS: DULoxetine HCL 30 MG CAP PO SCH (10:30)
[2022-03-09] MEDS: HEPARIN SODIUM/DEXTROSE 25,000 UNITS/500 ML BAG IV SCH (10:41)
[2022-03-09 13:46] LABS: Partial Thromboplastin Ratio 3.2
--- NOTE | 2022-03-09 15:11 | XRay Report ---
XR KUB/Abdomen 1 view CLINICAL HISTORY: check NGT placement s/p dislodgement TECHNIQUE: 1 view of the abdomen was obtained. Comparison: Comparison is made to abdomen radiograph 03/08/2022 FINDINGS: Cardiomegaly is seen. There is interval placement of an enteric tube with the tip above the diaphragm . IMPRESSION: Enteric tube tip is above the diaphragm and could be advanced approximately 15 cm for improved positi oning. ACT 112: Negative or not required by law. Electronically signed by: Doc Thomas M.D. 03/09/2022 3:10 PM
--- NOTE | 2022-03-09 16:02 | Hospitalist Progress Note ---
Date of Service March 09, 2022 Assessment & Plan (1) Stroke: Plan: Left basal ganglia/posterior limb of internal capsule. Thrombotic (off plavix recently) vs embolic etiology both possible (known aalmaz, was off Eliquis for his recent sinus surgery). Appreciate neurology consult. Appreciate PT, OT, speech. Dense aphasia, right sided weakness which is improving a bit over the last several days. Still with significant aphasia and dysphagia although speech more clear on 03/08 Has had prior strokes Failed bedside swallow two days in a row. Video swallow on 03/05/22 with aspiration of thin liquids and then aborted due to cyanotic episode somewhat caused by aspiration of epistaxis as well Son reports previous need for Heimlich maneuver and other choking episodes at [place] in the last 6 months, required pureed diet prior to this stroke For stroke prevention -was placed on heparin drip in lieu of Eliquis, but then placed on hold due to bleeding from sinuses coming out ears through TM tubes (recent sinus surgery)-bleeding has now stopped Patient and son agreeable for PEG tube placement-consult GI--> would prefer trial of Coresafe tube feeds and if no recovery of swallowing function in next 2 weeks then plan for PEG if still needed after that -consulted ENT for Coresafe placement due to 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 Ge performed this on 03/08 Consult Nutrition for tube feed recommendations-appreciate and started TFs , titrate up to goal Restarted po meds now that tube in place-Plavix, ASA, BP meds -continue maintenance fluids to D5LR at 70mL/hr until at goal TFs Now with NGT in place--> changed rectal aspirin to Plavix via NG -once we ensure no further epistaxis and blood from ears, can switch heparin gtt back to ELiquis per NGT Tube now not in position and coiled in throat-attempting to pull back slightly and repeat xray in 1 hour after sitting upright. If not in correct position yet, ENT recommends waiting 1-2 days for him to swallow it down Would be cautious about replacing and CONSULT WITH ENT FIRST given recent sinus surgery (2) Status post myringotomy with tube placement of both ears: Plan: 03/01/22 - s/p Bilateral Myringotomy and Tube Insertion, Image guided bilateral endoscopic sinus surgery with bilateral frontal, total ethmoid, and maxillary sinus antrostomies Dr Ge surgery performed due to chronic sinus issues/sinusitis, polyps, chronic OME b/l, etc. 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 Dr Ge is aware of pt's admission Prior hospitalist attending discussed placing patient on heparin - ENT felt acceptable to do so; blood in sinuses seen on recent imaging likely OLD from his surgery no major epistaxis since admission except one brief episode during video swallow 03/05 having some mild epistaxis and bloody drainage from ears--use Afrin as needed for bleeding and ENT recommends saline mist to nose qid restarted heparin gtt -RN to clean clots out from right EAC superficially and continue Ofloxacin gtts bid to keep T-tubes open (3) Urinary retention: Plan: retaining 1 L urine on 03/05 after noting abd pain and distension checked KUB also due to abd distension and pain-no obstruction, moving bowels now placed Rodriguez and draining well now start FLomax now that NG tube in place (4) S/P nasal polypectomy: Plan: 03/01/22 Dr Ge (5) Atrial fibrillation: Plan: permanent / stable IV metoprolol mainly for BP control but now stopped after able to restart BP meds through NGT watch rates on tele Heparin drip in lieu of Eliquis now on hold due to bleeding from nose and ears which is now resolving, restart heparin gtt now and plan to restart Eliquis once no more bleeding ensured (6) Coronary artery disease: Plan: no ischemic symptoms Resume statin/plavix now that NGT in place (7) Stage III chronic kidney disease: Plan: lasix on hold BMPs stable BMP in am (8) DM type 2 (diabetes mellitus, type 2): Plan: controlled cont novolog SSI HbA1C 6.7% (9) HTN (hypertension): Plan: BPs were allowed to be permissively high early in stay now start to control BP dc metoprolol IV 5mg q6h now that can take home and make hydralazine 5mg IV q8h prn SBP>180 restarted home lisinopril 40mg per NGT BPs still high--> start amlodipine 5mg daily (10) Hypothyroid: Plan: continue levothyroxine 50 mcg per NG daily most recent TSH wnl (2.3 in 09/2021) (11) Hyperlipidemia: Plan: continue statin (12) GERD (gastroesophageal reflux disease): Plan: continue Prevacid per NGT (13) Memory impairment: 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 here on CBC (16) Depression: Plan: Cymbalta for depression/neuropathy cannot be crushed and is difficlt to open up and put in tube-hold for now (17) B12 deficiency: Plan: resolved b12 level >1000 (18) Dysphagia: Plan: known issue at baseline multiple etiologies - prior CVAs, esophageal stenosis (required dilation 07/2021), etc failed video swallow-for PEG as above appreciate speech assistance Plan Dispo-continued stay, return to [facility] with tube feeds once at goal and tolerating feeds Discussed care with son, DIL, granddaughter at bedside Discussed care with ENT Admission and Anticipated Discharge Date Admission Date: March 02, 2022 Subjective Pt had NGT dislodged slightly while working with PT today and TFs placed on hold. Had some hypoxia overnight and required O2, now weaned to 2LNC. Denies pain or SOB. Tele with rate controlled Afib Review of Systems Review of Systems: All systems reviewed & are unremarkable except as noted in HPI & below Physical Exam Physical Exam: gen - NAD,Alert, awake, interactive, extremely hard of hearing mouth - dry tongue HEENT - no epistaxis, NGT in place, Rt neck - no JVD, trachea midline heart - irregularly irregular, s1 s2, 1-2/6 systolic murmur RUSB lungs - CTA b/l abd - BS+,no ttp ext - no edema neuro - 4/5 strength in RLE, 4/5 RUE much improved, 5/5 otherwise, +right facial droop, dysarthria Results & Data Results & Data ([facility]) Vital Signs (Past 12 Hours) Vital Signs Temp Pulse Pulse Resp BP Pulse Ox O2 Del Method 03/09/22 15:28 68 20 171/93 H 95 Nasal Cannula 03/09/22 14:19 60 03/09/22 13:30 36.6 C 67 20 163/110 H 99 Nasal Cannula 03/09/22 06:36 91 H 03/09/22 08:00 Nasal Cannula 03/09/22 07:32 36.6 C 66 18 123/66 95 Room Air O2 Flow Rate 03/09/22 15:28 2 03/09/22 14:19 03/09/22 13:30 2 03/09/22 06:36 03/09/22 08:00 4 03/09/22 07:32 Laboratory Results 03/09/22 03/09/22 03/09/22 Range/Units 13:00 11:30 06:09 WBC (4.8-10.8) K/ul RBC (4.63-6.08) M/uL Hgb (14.0-18.0) g/dl Hct (40.1-51.0) % MCV (80.0-100.0) fL MCH (25.0-34.0) pg MCHC (32.0-36.0) g/dL RDW Std Deviation (36.4-46.3) fL RDW Coeff of Eben (11.5-14.5) % Plt Count (130-400) K/uL MPV (9.4-12.4) fL Immature Gran % (Auto) % Neut % (Auto) % Lymph % (Auto) % Thomas % (Auto) % Eos % (Auto) % Baso % (Auto) % Neut # (Auto) (1.4-6.5) K/uL Lymph # (Auto) (1.2-3.4) K/uL Thomas # (Auto) (0.24-0.82) K/uL Eos # (Auto) (0-0.50) K/uL Baso # (Auto) (0-0.2) K/uL Immature Gran # (Auto) (0.00-0.02) K/uL PT (9.0-12.0) Seconds INR (0.9-1.1) APTT 87.0 H* 68.0 H* (21.0-31.0) Seconds PTT Ratio 3.2 2.5 Sodium (136-145) mmol/L Potassium (3.5-5.1) mmol/L Chloride (98-107) mmol/L Carbon Dioxide (21-32) mmol/L Anion Gap (3-11) BUN (6-23) mg/dl Creatinine (0.6-1.4) mg/dl Est Cr Clr Drug Dosing ml/min Est GFR ( Amer) ml/min Est GFR (Non-Af Amer) ml/min BUN/Creatinine Ratio (10-20) Glucose (70-99(Fasting)) mg/dl POC Glucose 196 H (70-99) mg/dl Calcium (8.5-10.1) mg/dl Phosphorus (2.5-4.9) mg/dl Magnesium (1.7-2.4) mg/dl 03/09/22 03/09/22 03/09/22 Range/Units 06:09 06:09 05:59 WBC 6.75 (4.8-10.8) K/ul RBC 4.10 L (4.63-6.08) M/uL Hgb 12.5 L (14.0-18.0) g/dl Hct 36.8 L (40.1-51.0) % MCV 89.8 (80.0-100.0) fL MCH 30.5 (25.0-34.0) pg MCHC 34.0 (32.0-36.0) g/dL RDW Std Deviation 46.0 (36.4-46.3) fL RDW Coeff of Eben 14.1 (11.5-14.5) % Plt Count 106 L (130-400) K/uL MPV 12.1 (9.4-12.4) fL Immature Gran % (Auto) 0.4 % Neut % (Auto) 67.1 % Lymph % (Auto) 19.3 % Thomas % (Auto) 9.8 % Eos % (Auto) 3.1 % Baso % (Auto) 0.3 % Neut # (Auto) 4.53 (1.4-6.5) K/uL Lymph # (Auto) 1.30 (1.2-3.4) K/uL Thomas # (Auto) 0.66 (0.24-0.82) K/uL Eos # (Auto) 0.21 (0-0.50) K/uL Baso # (Auto) 0.02 (0-0.2) K/uL Immature Gran # (Auto) 0.03 H (0.00-0.02) K/uL PT (9.0-12.0) Seconds INR (0.9-1.1) APTT (21.0-31.0) Seconds PTT Ratio Sodium 139 (136-145) mmol/L Potassium 3.3 L (3.5-5.1) mmol/L Chloride 109 H (98-107) mmol/L Carbon Dioxide 23 (21-32) mmol/L Anion Gap 7 (3-11) BUN 13 (6-23) mg/dl Creatinine 1.03 (0.6-1.4) mg/dl Est Cr Clr Drug Dosing 62.3 ml/min Est GFR ( Amer) 75.9 ml/min Est GFR (Non-Af Amer) 65.5 ml/min BUN/Creatinine Ratio 12.6 (10-20) Glucose 191 H (70-99(Fasting)) mg/dl POC Glucose 182 H (70-99) mg/dl Calcium 8.7 (8.5-10.1) mg/dl Phosphorus 2.9 (2.5-4.9) mg/dl Magnesium 1.8 (1.7-2.4) mg/dl 03/09/22 03/08/22 03/08/22 Range/Units 00:20 23:52 18:45 WBC (4.8-10.8) K/ul RBC (4.63-6.08) M/uL Hgb (14.0-18.0) g/dl Hct (40.1-51.0) % MCV (80.0-100.0) fL MCH (25.0-34.0) pg MCHC (32.0-36.0) g/dL RDW Std Deviation (36.4-46.3) fL RDW Coeff of Eben (11.5-14.5) % Plt Count (130-400) K/uL MPV (9.4-12.4) fL Immature Gran % (Auto) % Neut % (Auto) % Lymph % (Auto) % Thomas % (Auto) % Eos % (Auto) % Baso % (Auto) % Neut # (Auto) (1.4-6.5) K/uL Lymph # (Auto) (1.2-3.4) K/uL Thomas # (Auto) (0.24-0.82) K/uL Eos # (Auto) (0-0.50) K/uL Baso # (Auto) (0-0.2) K/uL Immature Gran # (Auto) (0.00-0.02) K/uL PT (9.0-12.0) Seconds INR (0.9-1.1) APTT 63.6 H* (21.0-31.0) Seconds PTT Ratio 2.3 Sodium (136-145) mmol/L Potassium (3.5-5.1) mmol/L Chloride (98-107) mmol/L Carbon Dioxide (21-32) mmol/L Anion Gap (3-11) BUN (6-23) mg/dl Creatinine (0.6-1.4) mg/dl Est Cr Clr Drug Dosing ml/min Est GFR ( Amer) ml/min Est GFR (Non-Af Amer) ml/min BUN/Creatinine Ratio (10-20) Glucose (70-99(Fasting)) mg/dl POC Glucose 163 H 193 H (70-99) mg/dl Calcium (8.5-10.1) mg/dl Phosphorus (2.5-4.9) mg/dl Magnesium (1.7-2.4) mg/dl 03/08/22 03/08/22 Range/Units 18:00 18:00 WBC 7.94 (4.8-10.8) K/ul RBC 4.24 L (4.63-6.08) M/uL Hgb 12.9 L (14.0-18.0) g/dl Hct 37.7 L (40.1-51.0) % MCV 88.9 (80.0-100.0) fL MCH 30.4 (25.0-34.0) pg MCHC 34.2 (32.0-36.0) g/dL RDW Std Deviation 45.5 (36.4-46.3) fL RDW Coeff of Eben 14.1 (11.5-14.5) % Plt Count 123 L (130-400) K/uL MPV 11.5 (9.4-12.4) fL Immature Gran % (Auto) 0.4 % Neut % (Auto) 76.1 % Lymph % (Auto) 13.2 % Thomas % (Auto) 7.9 % Eos % (Auto) 2.0 % Baso % (Auto) 0.4 % Neut # (Auto) 6.04 (1.4-6.5) K/uL Lymph # (Auto) 1.05 L (1.2-3.4) K/uL Thomas # (Auto) 0.63 (0.24-0.82) K/uL Eos # (Auto) 0.16 (0-0.50) K/uL Baso # (Auto) 0.03 (0-0.2) K/uL Immature Gran # (Auto) 0.03 H (0.00-0.02) K/uL PT 11.8 (9.0-12.0) Seconds INR 1.1 (0.9-1.1) APTT 29.0 (21.0-31.0) Seconds PTT Ratio 1.1 Sodium (136-145) mmol/L Potassium (3.5-5.1) mmol/L Chloride (98-107) mmol/L Carbon Dioxide (21-32) mmol/L Anion Gap (3-11) BUN (6-23) mg/dl Creatinine (0.6-1.4) mg/dl Est Cr Clr Drug Dosing ml/min Est GFR ( Amer) ml/min Est GFR (Non-Af Amer) ml/min BUN/Creatinine Ratio (10-20) Glucose (70-99(Fasting)) mg/dl POC Glucose (70-99) mg/dl Calcium (8.5-10.1) mg/dl Phosphorus (2.5-4.9) mg/dl Magnesium (1.7-2.4) mg/dl PG Care Time/CCT Total # of Minutes Spent Total Time Spent with Patient: Total time spent is greater than 50% in coordination of care (as documented) at patient's floor/unit and/or counseling patient: Coding Level of Care Code 36943 Subseq Hosp Care Lvl 3 Diagnoses Stroke I63.9 Status post myringotomy with tube placement of both ears Z96.22 Urinary retention R33.9 S/P nasal polypectomy Z98.890 Atrial fibrillation I48.21 Atrial fibrillation type: permanent Coronary artery disease I25.10 Stage III chronic kidney disease N18.3 DM type 2 (diabetes mellitus, type 2) E11.9; Z79.4 Diabetes mellitus complication status: without complication Diabetes mellitus mcc insulin use: with rn long term care use HTN (hypertension) I10 Hypothyroid E03.9 Hypothyroidism type: acquired Hyperlipidemia E78.2 Hyperlipidemia type: mixed hyperlipidemia GERD (gastroesophageal reflux disease) K21.9 Esophagitis presence: esophagitis presence not specified Memory impairment R41.3 BPH (benign prostatic hyperplasia) N40.0 Thrombocytopenia D69.6 Depression F32.9 B12 deficiency E53.8 Dysphagia R13.10 (1) DM type 2 (diabetes mellitus, type 2) Diabetes mellitus complication status: without complication Diabetes mellitus rn long term care insulin use: with mcc use Qualified Code(s): E11.9 - Type 2 diabetes mellitus without complications; Z79.4 - penitentiary (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
[2022-03-09] MEDS: SODIUM CHLORIDE 0.65% NA SOLN 45 ML (OCEAN) SCH (16:55)
--- NOTE | 2022-03-09 16:56 | XRay Report ---
XR chest 1V portable CLINICAL HISTORY: hypoxia TECHNIQUE: Single frontal radiograph of the chest was obtained. Comparison: Comparison is made to chest radiograph 03/02/2022 FINDINGS: An enteric tube terminates in the distal esophagus. Median sternotomy wires are seen. Cardiomegaly is noted. Prominence and cephalization of the vasculature is seen. No evidence of pleural effusion or p neumothorax. IMPRESSION: 1. Enteric tube terminates above the diaphragm and can be advanced approximately 13 mm for improved positioning. 2. Cardiomegaly and mild pulmonary edema. ACT 112: Negative or not required by law. Electronically signed by: Doc Thomas M.D. 03/09/2022 4:54 PM
--- NOTE | 2022-03-09 16:56 | XRay Report ---
XR KUB/Abdomen 1 view CLINICAL HISTORY: check placement NGT TECHNIQUE: 1 view of the abdomen was obtained. Comparison: Comparison is made to abdomen radiograph 03/09/2022 FINDINGS: Enteric tube tip remains above the diaphragm and can be advanced approximately 13 mm for improved pos itioning. Right upper quadrant cholecystectomy clips are seen. Degenerative changes are seen in the l umbar spine. IMPRESSION: Enteric tube terminates above the diaphragm and can be advanced approximately 13 mm for improved posi tioning. ACT 112: Negative or not required by law. Electronically signed by: Doc Thomas M.D. 03/09/2022 4:54 PM
[2022-03-09] MEDS: amLODIPine BESYLATE 5 MG TAB PO SCH (18:20)
--- NOTE | 2022-03-09 19:45 | XRay Report ---
XR KUB/Abdomen 1 view CLINICAL HISTORY: check NG placement TECHNIQUE: 1 view of the abdomen was obtained. Comparison: Comparison is made to abdomen radiograph 03/09/2022 FINDINGS: The enteric tube remains above the diaphragm. Degenerative changes are seen in the visualized skeleto n. The bowel gas pattern is nonobstructive. A moderate amount of stool is noted within the large jorge l. IMPRESSION: Enteric tube is again seen above the diaphragm and can be advanced approximately 11 cm for improved p ositioning. ACT 112: Negative or not required by law. Electronically signed by: Doc Thomas M.D. 03/09/2022 7:44 PM
[2022-03-09] MEDS: ATORVASTATIN 40 MG TAB NG SCH (21:18)
[2022-03-09] MEDS: TAMSULOSIN HCL 0.4 MG CAP NG SCH (21:20)
[2022-03-09 22:04] LABS: Partial Thromboplastin Ratio 2.3
[2022-03-09 22:05] LABS: Partial Thromboplastin Time 63.1 Seconds (21.0-31.0)
[2022-03-10] MEDS: TUBE FEEDING WATER FLUSH NG SCH ×6 (02:00→21:30)
[2022-03-10] MEDS: D5W AND LACTATED RINGERS 1,000 ML IV SCH ×2 (03:45→18:26)
[2022-03-10] MEDS: LEVOTHYROXINE SODIUM 50 MCG TABLET NG SCH (06:09)
[2022-03-10] MEDS: INSULIN ASPART PER UNIT SC SCH ×4 (06:15→23:44)
[2022-03-10 06:25] LABS: Basophils # (auto) 0.03 K/uL (0-0.2); Basophils % (auto) 0.5 %; Eosinophils # (auto) 0.27 K/uL (0-0.50); Eosinophils % (auto) 4.6 %; Hematocrit (blood only) 35.4 % (40.1-51.0); Hemoglobin 11.9 g/dl (14.0-18.0); Immature Granulocytes # (auto) 0.03 K/uL (0.00-0.02); Immature Granulocytes % (auto) 0.5 %; Lymphocytes # (auto) 1.23 K/uL (1.2-3.4); Lymphocytes % (auto) 21.1 %; Mean Corpuscular Hgb Conc 33.6 g/dL (32.0-36.0); Mean Corpuscular Volume 89.2 fL (80.0-100.0); Monocytes # (auto) 0.58 K/uL (0.24-0.82); Neutrophils # (auto) 3.68 K/uL (1.4-6.5); Neutrophils % (auto) 63.3 %; Platelet Count 115 K/uL (130-400); RDW Coefficient of Variation 13.9 % (11.5-14.5); RDW Standard Deviation 45.1 fL (36.4-46.3); Red Blood Count 3.97 M/uL (4.63-6.08); White Blood Count 5.82 K/ul (4.8-10.8)
[2022-03-10 06:43] LABS: BUN Creatinine Ratio 8.3 (10-20); Calcium 8.7 mg/dl (8.5-10.1); Creatinine Clr Calc Pharmacy 65.6 ml/min; Est GFR (African American) 82.6 ml/min; Est GFR (Non-African American) 71.3 ml/min; Magnesium 1.8 mg/dl (1.7-2.4); Phosphorus 2.8 mg/dl (2.5-4.9); Potassium 3.4 mmol/L (3.5-5.1)
[2022-03-10 06:52] LABS: Partial Thromboplastin Ratio 2.9
[2022-03-10 07:08] LABS: Partial Thromboplastin Time 79.2 Seconds (21.0-31.0)
[2022-03-10] MEDS: SODIUM CHLORIDE 0.65% NA SOLN 45 ML (OCEAN) SCH ×4 (07:54→15:51)
[2022-03-10] MEDS: OFLOXACIN 0.3% 75 DROPS/5 ML BTL OTB SCH ×2 (08:04→21:32)
[2022-03-10] MEDS ORDERED: MAGNESIUM SULFATE / D5W 1 GM/100 ML BAG IV ONE (08:10)
--- NOTE | 2022-03-10 09:10 | XRay Report ---
XR KUB/Abdomen 1 view CLINICAL HISTORY: f/u NGT placement. COMPARISON STUDY: 03/09/2022 TECHNIQUE: Single view of the abdomen. FINDINGS: The bowel gas pattern is within normal limits without evidence for dilatation or obstruction. NG tube has been advanced so that its tip is now in the upper body of the stomach. There is no evidence for organomegaly or gross intra-abdominal mass. No abnormal calcifications are seen along the course of t he urinary tracts bilaterally. No acute osseous pathology. IMPRESSION: 1. No acute intra-abdominal abnormality. 2. Tip of NG tube in the upper body of the stomach. ACT 112: Negative or not required by law. Electronically signed by: Geovani Saldivar M.D. 03/10/2022 9:08 AM
[2022-03-10] MEDS: POTASSIUM CHLORIDE / WTR 10 MEQ/100 ML PLCT IV SCH ×2 (09:17→10:21)
--- NOTE | 2022-03-10 09:20 | Ears,Nose,Throat Progress Note ---
Date of Service March 10, 2022 Assessment & Plan (1) Feeding difficulties: Plan: Feeding tube was curled in his throat. Had to be removed. New feeding tube replaced. Had to be guided down manually through the oropharynx. Await x-ray confirmation for placement prior to start of feeding. Admission and Anticipated Discharge Date Admission Date: March 02, 2022 Subjective Dislodged NG tube/feeding tube Results & Data ([facility]) Vital Signs (Past 12 Hours) Vital Signs Temp Pulse Pulse Resp BP Pulse Ox O2 Del Method 03/10/22 08:00 177/98 H 93 Room Air 03/10/22 07:30 37.0 C 75 22 182/97 H 98 Oxymask 03/10/22 03:23 37.8 C H 79 20 173/86 H 91 Room Air 03/10/22 01:39 134/75 03/10/22 00:42 163/93 H 03/09/22 23:47 192/104 H 03/09/22 23:03 37.4 C 78 18 200/115 H 96 Room Air 03/09/22 22:51 71 O2 Flow Rate 03/10/22 08:00 03/10/22 07:30 4 03/10/22 03:23 03/10/22 01:39 03/10/22 00:42 03/09/22 23:47 03/09/22 23:03 03/09/22 22:51
[2022-03-10] MEDS: HEPARIN SODIUM/DEXTROSE 25,000 UNITS/500 ML BAG IV SCH (09:24)
--- NOTE | 2022-03-10 09:38 | XRay Report ---
XR chest 1V portable CLINICAL HISTORY: NGT placement. COMPARISON STUDY: 03/09/2022 TECHNIQUE: 1 view of the chest FINDINGS: Single frontal view of the chest demonstrates the heart size to again be enlarged status post previou s cardiothoracic surgery. The lungs are clear of alveolar opacities. There is no evidence for pleural effusion. There is no evidence for vascular congestion. There is no acute osseous pathology. There has been repositioning of the patient's feeding tube which is folded upon itself within the sto mach. Its tips is at the GE junction directed cephalad. IMPRESSION: 1. No acute cardiopulmonary disease. 2. Feeding tube as described. ACT 112: Negative or not required by law. Electronically signed by: Geovani Saldivar M.D. 03/10/2022 9:36 AM
[2022-03-10] MEDS: amLODIPine BESYLATE 5 MG TAB PO SCH (09:52)
[2022-03-10] MEDS: CARBIDOPA/LEVODOPA 25/100MG TAB NG SCH ×3 (09:52→21:29)
[2022-03-10] MEDS: DOCUSATE SODIUM SYRUP 100 MG/10 ML UDC NG SCH ×2 (09:53→21:29)
[2022-03-10] MEDS: CYANOCOBALAMIN (B-12) 500 MCG TABLET NG SCH (09:53)
[2022-03-10] MEDS: PREGABALIN 100 MG CAP PO SCH ×3 (09:53→21:29)
[2022-03-10] MEDS: lisinopril 40 MG TAB PO SCH (09:53)
[2022-03-10] MEDS: LANSOPRAZOLE 15 MG SOLTAB NG SCH (09:53)
[2022-03-10] MEDS: POLYETHYLENE (MIRALAX) 17 GM PACK NG SCH (09:53)
[2022-03-10] MEDS: CLOPIDOGREL BISULFATE 75 MG TAB PEG SCH (09:53)
--- NOTE | 2022-03-10 10:03 | Hospitalist Progress Note ---
Date of Service March 10, 2022 Assessment & Plan (1) Stroke: Plan: Left basal ganglia/posterior limb of internal capsule. Thrombotic (off plavix recently) vs embolic etiology both possible (known ana, was off Eliquis for his recent sinus surgery). Appreciate neurology consult. Appreciate PT, OT, speech. Dense aphasia, right sided weakness which is improving somewhat over the last several days. Still with significant aphasia and dysphagia although speech slightly more clear on 03/08 Has had prior strokes Failed bedside swallow two days in a row. Video swallow on 03/05/22 with aspiration of thin liquids and then aborted due to cyanotic episode somewhat caused by aspiration of epistaxis as well Son reports previous need for Heimlich maneuver and other choking episodes at [place] in the last 6 months, required pureed diet prior to this stroke For stroke prevention -was placed on heparin drip in lieu of Eliquis, had some bleeding from sinuses coming out ears through TM tubes (recent sinus surgery) and heparin was temporarily held -bleeding has now mostly stopped and is back on heparin gtt Patient and son agreeable for PEG tube placement-consult GI--> would prefer trial of Coresafe tube feeds and if no recovery of swallowing function in next 2 weeks then plan for PEG if still needed after that -consulted ENT for Coresafe placement due to 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 Ge performed this on 03/08 -Consult Nutrition for tube feed recommendations Started TFs and switched meds to per NG, but now NG tube coiled in the throat on 03/09 and was replaced by ENT on 03/10. Repeat chest x-ray on 03/10 shows tube still not quite in the stomach-curled cephalad in the GE junction -Hold all tube feeds and NG meds for now -Repeat chest x-ray in the morning to confirm placement of NG to see if is down the stomach yet -Will unable to have Plavix per NG, will convert back to aspirin [place] -Continue heparin drip rather than Eliquis -continue maintenance fluids to D5LR at 70mL/hr until at goal TFs If NG tube needs replacing-MUST CONSULT WITH ENT FIRST given recent sinus surgery (2) Status post myringotomy with tube placement of both ears: Plan: 03/01/22 - s/p Bilateral Myringotomy and Tube Insertion, Image guided bilateral endoscopic sinus surgery with bilateral frontal, total ethmoid, and maxillary sinus antrostomies Dr Ge surgery performed due to chronic sinus issues/sinusitis, polyps, chronic OME b/l, etc. 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 Dr Ge is aware of pt's admission Prior hospitalist attending discussed placing patient on heparin - ENT felt acceptable to do so; blood in sinuses seen on recent imaging likely OLD from his surgery no major epistaxis since admission except one brief episode during video swallow 03/05 having some mild epistaxis and bloody drainage from ears--use Afrin as needed for bleeding and ENT recommends saline mist to nose qid Have since restarted heparin gtt -RN to clean clots out from right EAC superficially as needed and continue Ofloxacin gtts bid to keep T-tubes open (3) Urinary retention: Plan: retaining 1 L urine on 03/05 after noting abd pain and distension checked KUB also due to abd distension and pain-no obstruction, moving bowels now placed Rodriguez and draining well now, some very faint hematuria on 03/10-observe started FLomax now that NG tube in place (4) S/P nasal polypectomy: Plan: 03/01/22 Dr Ge (5) Atrial fibrillation: Plan: permanent / stable, rates controlled Heparin drip in lieu of Eliquis for now until able to use NG tube again (6) Coronary artery disease: Plan: no ischemic symptoms Resume statin/plavix once NGT in proper positioning (7) Stage III chronic kidney disease: Plan: lasix on hold, on fluids while n.p.o. 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 here on CBC (16) Depression: Plan: Cymbalta for depression/neuropathy cannot be crushed and is difficlt to open up and put in tube-hold for now (17) B12 deficiency: Plan: resolved b12 level >1000 (18) Dysphagia: Plan: known issue at baseline multiple etiologies - prior CVAs, esophageal stenosis (required dilation 07/2021), etc failed video swallow-for PEG as above appreciate speech assistance Plan Dispo-continued stay, return to [facility] with tube feeds once at goal and tolerating feeds Admission and Anticipated Discharge Date Admission Date: March 02, 2022 Subjective Patient had some apneic episodes overnight while sleeping that improved with keeping him more upright as per nursing. ENT was in this morning and placed a new NG tube. Repeat chest x-ray today still shows it is not in the stomach just yet but is further down than yesterday but the tip of the tube is curled cephalad and stuck in the GE junction. Patient has no complaints. Communicated with paper and pen. Telemetry with rate controlled atrial fibrillation Review of Systems Review of Systems: All systems reviewed & are unremarkable except as noted in HPI & below Physical Exam Physical Exam: gen - NAD,Alert, awake, interactive, extremely hard of hearing mouth - dry tongue HEENT - no epistaxis, NGT in place, Rt, scant dried blood coming out of right ear neck - no JVD, trachea midline heart - irregularly irregular, s1 s2, 1-2/6 systolic murmur RUSB lungs - CTA b/l abd - BS+,no ttp ext - no edema neuro - 4/5 strength in RLE, 4/5 RUE much improved, 5/5 otherwise, +right facial droop, dysarthria Results & Data Results & Data ([facility]) Vital Signs (Past 12 Hours) Vital Signs Temp Pulse Pulse Resp BP Pulse Ox O2 Del Method 03/10/22 08:00 177/98 H 93 Room Air 03/10/22 07:30 37.0 C 75 22 182/97 H 98 Oxymask 03/10/22 03:23 37.8 C H 79 20 173/86 H 91 Room Air 03/10/22 01:39 134/75 03/10/22 00:42 163/93 H 03/09/22 23:47 192/104 H 03/09/22 23:03 37.4 C 78 18 200/115 H 96 Room Air 03/09/22 22:51 71 O2 Flow Rate 03/10/22 08:00 03/10/22 07:30 4 03/10/22 03:23 03/10/22 01:39 03/10/22 00:42 03/09/22 23:47 03/09/22 23:03 03/09/22 22:51 Laboratory Results 03/10/22 03/10/22 03/10/22 Range/Units 12:46 11:57 06:11 WBC (4.8-10.8) K/ul RBC (4.63-6.08) M/uL Hgb (14.0-18.0) g/dl Hct (40.1-51.0) % MCV (80.0-100.0) fL MCH (25.0-34.0) pg MCHC (32.0-36.0) g/dL RDW Std Deviation (36.4-46.3) fL RDW Coeff of Eben (11.5-14.5) % Plt Count (130-400) K/uL MPV (9.4-12.4) fL Immature Gran % (Auto) % Neut % (Auto) % Lymph % (Auto) % [place] % (Auto) % Eos % (Auto) % Baso % (Auto) % Neut # (Auto) (1.4-6.5) K/uL Lymph # (Auto) (1.2-3.4) K/uL [place] # (Auto) (0.24-0.82) K/uL Eos # (Auto) (0-0.50) K/uL Baso # (Auto) (0-0.2) K/uL Immature Gran # (Auto) (0.00-0.02) K/uL APTT 60.0 H* (21.0-31.0) Seconds PTT Ratio 2.2 Sodium (136-145) mmol/L Potassium (3.5-5.1) mmol/L Chloride (98-107) mmol/L Carbon Dioxide (21-32) mmol/L Anion Gap (3-11) BUN (6-23) mg/dl Creatinine (0.6-1.4) mg/dl Est Cr Clr Drug Dosing ml/min Est GFR ( Amer) ml/min Est GFR (Non-Af Amer) ml/min BUN/Creatinine Ratio (10-20) Glucose (70-99(Fasting)) mg/dl POC Glucose 199 H 167 H (70-99) mg/dl Calcium (8.5-10.1) mg/dl Phosphorus (2.5-4.9) mg/dl Magnesium (1.7-2.4) mg/dl 03/10/22 03/10/22 03/10/22 Range/Units 05:50 05:50 05:50 WBC 5.82 (4.8-10.8) K/ul RBC 3.97 L (4.63-6.08) M/uL Hgb 11.9 L (14.0-18.0) g/dl Hct 35.4 L (40.1-51.0) % MCV 89.2 (80.0-100.0) fL MCH 30.0 (25.0-34.0) pg MCHC 33.6 (32.0-36.0) g/dL RDW Std Deviation 45.1 (36.4-46.3) fL RDW Coeff of Eben 13.9 (11.5-14.5) % Plt Count 115 L (130-400) K/uL MPV 12.0 (9.4-12.4) fL Immature Gran % (Auto) 0.5 % Neut % (Auto) 63.3 % Lymph % (Auto) 21.1 % [place] % (Auto) 10.0 % Eos % (Auto) 4.6 % Baso % (Auto) 0.5 % Neut # (Auto) 3.68 (1.4-6.5) K/uL Lymph # (Auto) 1.23 (1.2-3.4) K/uL [place] # (Auto) 0.58 (0.24-0.82) K/uL Eos # (Auto) 0.27 (0-0.50) K/uL Baso # (Auto) 0.03 (0-0.2) K/uL Immature Gran # (Auto) 0.03 H (0.00-0.02) K/uL APTT 79.2 H* (21.0-31.0) Seconds PTT Ratio 2.9 Sodium 138 (136-145) mmol/L Potassium 3.4 L (3.5-5.1) mmol/L Chloride 109 H (98-107) mmol/L Carbon Dioxide 25 (21-32) mmol/L Anion Gap 4 (3-11) BUN 8 (6-23) mg/dl Creatinine 0.96 (0.6-1.4) mg/dl Est Cr Clr Drug Dosing 65.6 ml/min Est GFR ( Amer) 82.6 ml/min Est GFR (Non-Af Amer) 71.3 ml/min BUN/Creatinine Ratio 8.3 L (10-20) Glucose 182 H (70-99(Fasting)) mg/dl POC Glucose (70-99) mg/dl Calcium 8.7 (8.5-10.1) mg/dl Phosphorus 2.8 (2.5-4.9) mg/dl Magnesium 1.8 (1.7-2.4) mg/dl 03/09/22 03/09/22 03/09/22 Range/Units 23:47 21:00 18:10 WBC (4.8-10.8) K/ul RBC (4.63-6.08) M/uL Hgb (14.0-18.0) g/dl Hct (40.1-51.0) % MCV (80.0-100.0) fL MCH (25.0-34.0) pg MCHC (32.0-36.0) g/dL RDW Std Deviation (36.4-46.3) fL RDW Coeff of Eben (11.5-14.5) % Plt Count (130-400) K/uL MPV (9.4-12.4) fL Immature Gran % (Auto) % Neut % (Auto) % Lymph % (Auto) % [place] % (Auto) % Eos % (Auto) % Baso % (Auto) % Neut # (Auto) (1.4-6.5) K/uL Lymph # (Auto) (1.2-3.4) K/uL [place] # (Auto) (0.24-0.82) K/uL Eos # (Auto) (0-0.50) K/uL Baso # (Auto) (0-0.2) K/uL Immature Gran # (Auto) (0.00-0.02) K/uL APTT 63.1 H* (21.0-31.0) Seconds PTT Ratio 2.3 Sodium (136-145) mmol/L Potassium (3.5-5.1) mmol/L Chloride (98-107) mmol/L Carbon Dioxide (21-32) mmol/L Anion Gap (3-11) BUN (6-23) mg/dl Creatinine (0.6-1.4) mg/dl Est Cr Clr Drug Dosing ml/min Est GFR ( Amer) ml/min Est GFR (Non-Af Amer) ml/min BUN/Creatinine Ratio (10-20) Glucose (70-99(Fasting)) mg/dl POC Glucose 149 H 153 H (70-99) mg/dl Calcium (8.5-10.1) mg/dl Phosphorus (2.5-4.9) mg/dl Magnesium (1.7-2.4) mg/dl PG Care Time/CCT Total # of Minutes Spent Total Time Spent with Patient: Total time spent is greater than 50% in coordination of care (as documented) at patient's floor/unit and/or counseling patient: Coding Level of Care Code 63233 Subseq Hosp Care Lvl 3 Diagnoses Stroke I63.9 Status post myringotomy with tube placement of both ears Z96.22 Urinary retention R33.9 S/P nasal polypectomy Z98.890 Atrial fibrillation I48.21 Atrial fibrillation type: permanent Coronary artery disease I25.10 Stage III chronic kidney disease N18.3 DM type 2 (diabetes mellitus, type 2) E11.9; Z79.4 Diabetes mellitus complication status: without complication 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 HTN (hypertension) I10 Hypothyroid E03.9 Hypothyroidism type: acquired Hyperlipidemia E78.2 Hyperlipidemia type: mixed hyperlipidemia GERD (gastroesophageal reflux disease) K21.9 Esophagitis presence: esophagitis presence not specified Memory impairment R41.3 BPH (benign prostatic hyperplasia) N40.0 Thrombocytopenia D69.6 Depression F32.9 B12 deficiency E53.8 Dysphagia R13.10 (1) DM type 2 (diabetes mellitus, type 2) Diabetes mellitus complication status: without complication 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 Qualified Code(s): E11.9 - Type 2 diabetes mellitus without complications; Z79.4 - snf (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
[2022-03-10 13:52] LABS: Partial Thromboplastin Ratio 2.2
--- NOTE | 2022-03-10 14:07 | XRay Report ---
XR chest 1V portable CLINICAL HISTORY: Feeding tube placement. COMPARISON STUDY: 03/10/2022 at 9:24 AM TECHNIQUE: 1 view of the chest FINDINGS: Single frontal view of the chest demonstrates the heart to again be prominent in size status post pre vious cardiothoracic surgery. There is a decreased inspiratory effort with elevation of the hemidiaph ragms and crowding of the bronchovascular markings at the lung bases and centrally. The lungs are zoraida ar of alveolar opacities. There is no evidence for pleural effusion. There is no evidence for vascula r congestion. There is no acute osseous pathology. The patient's feeding tube is again looped within the stomach with its tip still at the GE junction d irected cephalad. IMPRESSION: 1. No acute cardiopulmonary disease. 2. No change in the appearance of the patient's feeding tube. ACT 112: Negative or not required by law. Electronically signed by: Geovani Saldivar M.D. 03/10/2022 2:06 PM
[2022-03-10] MEDS ORDERED: ACETAMINOPHEN 1,000 MG/100 ML VIAL IV PRN (16:57)
[2022-03-10] MEDS: ASPIRIN 300 MG SUPP PR SCH (18:31)
[2022-03-10] MEDS: ATORVASTATIN 40 MG TAB NG SCH (21:28)
[2022-03-10] MEDS: TAMSULOSIN HCL 0.4 MG CAP NG SCH (21:30)
[2022-03-10] MEDS: hydrALAZINE HCL 20 MG/ML VIAL IV PRN (23:40)
[2022-03-11] MEDS: TUBE FEEDING WATER FLUSH NG SCH ×6 (01:18→21:46)
[2022-03-11] MEDS: HEPARIN SODIUM/DEXTROSE 25,000 UNITS/500 ML BAG IV SCH (06:09)
[2022-03-11] MEDS: INSULIN ASPART PER UNIT SC SCH ×3 (06:09→19:15)
[2022-03-11] MEDS: LEVOTHYROXINE SODIUM 50 MCG TABLET NG SCH (06:10)
[2022-03-11 06:50] LABS: Hematocrit (blood only) 34.4 % (40.1-51.0); Hemoglobin 11.5 g/dl (14.0-18.0); Mean Corpuscular Hemoglobin 29.8 pg (25.0-34.0); Mean Corpuscular Hgb Conc 33.4 g/dL (32.0-36.0); Mean Corpuscular Volume 89.1 fL (80.0-100.0); Mean Platelet Volume 11.8 fL (9.4-12.4); Platelet Count 126 K/uL (130-400); RDW Coefficient of Variation 13.9 % (11.5-14.5); RDW Standard Deviation 44.9 fL (36.4-46.3); Red Blood Count 3.86 M/uL (4.63-6.08); White Blood Count 7.05 K/ul (4.8-10.8)
[2022-03-11 07:11] LABS: BUN Creatinine Ratio 7.3 (10-20); Calcium 8.8 mg/dl (8.5-10.1); Creatinine Clr Calc Pharmacy 65.9 ml/min; Est GFR (African American) 82.6 ml/min; Est GFR (Non-African American) 71.3 ml/min; Magnesium 1.9 mg/dl (1.7-2.4); Phosphorus 3.2 mg/dl (2.5-4.9); Potassium 3.3 mmol/L (3.5-5.1)
--- NOTE | 2022-03-11 07:17 | XRay Report ---
XR chest 1V portable HISTORY: 86 years-old Male f/u NGT placement status post placement of a feeding tube COMPARISON: Chest radiograph 03/10/2022 TECHNIQUE: Portable AP view of the chest FINDINGS: Cardiac silhouette is enlarged. Prior median sternotomy. Atherosclerosis of the aorta. No pneumothora x. Trace pleural effusions. Pulmonary vascular congestion with mildly decreased interstitial coarseni ng. Degenerative changes of the shoulders and spine. A feeding tube is present which is coiled within the proximal stomach with distal tip projected superiorly near the gastroesophageal junction. IMPRESSION: 1. Cardiomegaly with mildly improved pulmonary edema. 2. Distal tip of feeding tube projects superiorly at the gastroesophageal junction. Repositioning is needed. ACT 112: Negative or not required by law. The above report was generated using voice recognition software. It may contain grammatical, syntax o r spelling errors. Electronically signed by: Ranjeet Cisneros M.D. 03/11/2022 7:16 AM
[2022-03-11 07:22] LABS: Partial Thromboplastin Ratio 2.3
[2022-03-11 07:23] LABS: Basophils # (auto) 0.03 K/uL (0-0.2); Basophils % (auto) 0.4 %; Eosinophils # (auto) 0.24 K/uL (0-0.50); Eosinophils % (auto) 3.4 %; Immature Granulocytes # (auto) 0.04 K/uL (0.00-0.02); Immature Granulocytes % (auto) 0.6 %; Lymphocytes # (auto) 1.31 K/uL (1.2-3.4); Lymphocytes % (auto) 18.6 %; Monocytes # (auto) 0.61 K/uL (0.24-0.82); Monocytes % (auto) 8.7 %; Neutrophils # (auto) 4.82 K/uL (1.4-6.5); Neutrophils % (auto) 68.3 %
[2022-03-11 07:29] LABS: Partial Thromboplastin Time 63.5 Seconds (21.0-31.0)
[2022-03-11] MEDS ORDERED: MAGNESIUM SULFATE / D5W 1 GM/100 ML BAG IV ONE (07:43)
[2022-03-11] MEDS: SODIUM CHLORIDE 0.65% NA SOLN 45 ML (OCEAN) SCH ×4 (08:00→17:00)
[2022-03-11] MEDS: OFLOXACIN 0.3% 75 DROPS/5 ML BTL OTB SCH ×2 (08:00→21:44)
[2022-03-11] MEDS: D5W AND LACTATED RINGERS 1,000 ML IV SCH ×2 (08:02→22:33)
[2022-03-11] MEDS: ASPIRIN 300 MG SUPP PR SCH (08:03)
[2022-03-11] MEDS: DOCUSATE SODIUM SYRUP 100 MG/10 ML UDC NG SCH ×2 (08:03→21:46)
[2022-03-11] MEDS: CLOPIDOGREL BISULFATE 75 MG TAB PEG SCH (08:03)
[2022-03-11] MEDS: CYANOCOBALAMIN (B-12) 500 MCG TABLET NG SCH (08:03)
[2022-03-11] MEDS: amLODIPine BESYLATE 5 MG TAB PO SCH (08:03)
[2022-03-11] MEDS: lisinopril 40 MG TAB PO SCH (08:03)
[2022-03-11] MEDS: POLYETHYLENE (MIRALAX) 17 GM PACK NG SCH (08:03)
[2022-03-11] MEDS: CARBIDOPA/LEVODOPA 25/100MG TAB NG SCH ×3 (08:03→21:45)
[2022-03-11] MEDS: LANSOPRAZOLE 15 MG SOLTAB NG SCH (08:03)
[2022-03-11] MEDS: PREGABALIN 100 MG CAP PO SCH ×3 (08:04→21:43)
[2022-03-11] MEDS: POTASSIUM CHLORIDE / WTR 10 MEQ/100 ML PLCT IV SCH ×4 (08:07→11:47)
--- NOTE | 2022-03-11 13:07 | XRay Report ---
SINGLE VIEW CHEST CLINICAL HISTORY: Enteric tube placement. FINDINGS: An AP, portable, upright chest radiograph is compared to study performed earlier the same d ay 03/11/2022. Correlation is made with chest CT dated 10/25/2021. The examination is degraded by fco ble technique and patient rotation. An enteric tube is in place. The tip of the tube projects superio rly at the gastroesophageal junction. This may be contained within a hiatal hernia. The patient is st atus post midline sternotomy. The heart is enlarged noting atherosclerotic calcification of the thora cic aorta. Pulmonary vascular congestion has almost completely resolved. Chronic interstitial thicken ing is similar to previous. There is bibasilar scarring/atelectasis. The lungs and pleural spaces are otherwise clear. No pneumothorax is seen. The skeletal structures are osteopenic. The bony thorax is grossly intact. IMPRESSION: 1. An enteric tube is in place. The tip projects superiorly at the level of the gastroesophageal junc tion and this may be located within a hiatal hernia. Repositioning is indicated. 2. Cardiomegaly . Pulmonary vascular congestion has almost completely resolved. ACT 112: Negative or not required by law. Electronically signed by: Crow Wells M.D. 03/11/2022 1:06 PM
--- NOTE | 2022-03-11 13:23 | Hospitalist Progress Note ---
Date of Service March 11, 2022 Assessment & Plan (1) Stroke: Plan: Left basal ganglia/posterior limb of internal capsule. Thrombotic (off plavix recently) vs embolic etiology both possible (known aalmaz, was off Eliquis for his recent sinus surgery). Appreciate neurology consult. Appreciate PT, OT, speech. Dense aphasia, right sided weakness which is improving somewhat over the last several days. Still with significant aphasia and dysphagia although speech slightly more clear on 03/08 Has had prior strokes Failed bedside swallow two days in a row. Video swallow on 03/05/22 with aspiration of thin liquids and then aborted due to cyanotic episode somewhat caused by aspiration of epistaxis as well Son reports previous need for Heimlich maneuver and other choking episodes at [facility] in the last 6 months, required pureed diet prior to this stroke For stroke prevention -was placed on heparin drip in lieu of Eliquis, had some bleeding from sinuses coming out ears through TM tubes (recent sinus surgery) and heparin was temporarily held -bleeding has now mostly stopped except for occasional small amounts of epistaxis, and is back on heparin gtt Patient and son agreeable for PEG tube placement-consulted GI--> GI prefers trial of Coresafe tube feeds and if no recovery of swallowing function in next 2 weeks then plan for PEG if still needed after that -consulted ENT for Coresafe placement due to 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 Ge performed this on 03/08 and then replaced the tube on 03/10 due to it being coiled in the throat -Consult Nutrition for tube feed recommendations Started TFs and switched meds to per NG, but then NG tube coiled in the throat on 03/09 and was replaced by ENT on 03/10. Repeat chest x-ray on 03/10 shows tube still not quite in the stomach-curled cephalad in the GE junction Held all tube feeds and NG meds On 03/11, retracted NG tube based on chest x-ray image and finally have tube in proper positioning -Restart tube feeds on 03/11 and restart all medications through NG tube -Continue Plavix, statin, added blood pressure control with amlodipine and lisinopril -Continue heparin drip rather than Eliquis, but if no further hematuria or epistaxis, convert back to Eliquis -continue maintenance fluids to D5LR at 70mL/hr until at goal TFs If NG tube needs replacing-MUST CONSULT WITH ENT FIRST given recent sinus surgery -Ultimately, will likely need PEG tube in the next 1 to 2 weeks but should have speech therapy reevaluation prior to that (2) Status post myringotomy with tube placement of both ears: Plan: 03/01/22 - s/p Bilateral Myringotomy and Tube Insertion, Image guided bilateral endoscopic sinus surgery with bilateral frontal, total ethmoid, and maxillary sinus antrostomies Dr Ge surgery performed due to chronic sinus issues/sinusitis, polyps, chronic OME b/l, etc. 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 Dr Ge is aware of pt's admission Prior hospitalist attending discussed placing patient on heparin - ENT felt acceptable to do so; blood in sinuses seen on recent imaging likely OLD from his surgery no major epistaxis since admission except one brief episode during video swallow 03/05 having some mild epistaxis and bloody drainage from ears--use Afrin as needed for bleeding and ENT recommends saline mist to nose qid Have since restarted heparin gtt -RN to clean clots out from right EAC superficially as needed and continue Ofloxacin gtts bid to keep T-tubes open (3) Urinary retention: Plan: retaining 1 L urine on 03/05 after noting abd pain and distension checked KUB also due to abd distension and pain-no obstruction, moving bowels now placed Rodriguez and draining well now -Continues with some very mild hematuria since 03/10, Rodriguez catheter draining well-continue to observe started FLomax now that NG tube in place (4) S/P nasal polypectomy: Plan: 03/01/22, with inverted papilloma, 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 here on CBC (16) Depression: Plan: Cymbalta for depression/neuropathy cannot be crushed and is difficlt to open up and put in tube-continue to hold for now -May need alternative SSRI that can be crushed through the tube-consider adding sertraline (17) B12 deficiency: Plan: resolved b12 level >1000 (18) Dysphagia: Plan: known issue at baseline multiple etiologies - prior CVAs, esophageal stenosis (required dilation 07/2021), etc failed video swallow-for PEG as above appreciate speech assistance-needs reevaluation prior to placing PEG tube at GI request Plan Dispo-continued stay, return to [facility] with tube feeds once at goal and tolerating feeds Admission and Anticipated Discharge Date Admission Date: March 02, 2022 Subjective Patient denies pain or any problems. His NG tube was still not in place on initial chest x-ray today and it was retracted 15 cm. Repeat chest x-ray later showed NG tube finally in place and tube feeds and meds resumed. Discussed his care with his [id number] and grandchildren at the bedside. Telemetry with atrial fibrillation with rates in 60s to 70s Review of Systems Review of Systems: All systems reviewed & are unremarkable except as noted in HPI & below Physical Exam Physical Exam: gen - NAD,Alert, awake, interactive, extremely hard of hearing mouth - dry tongue HEENT -crusted blood right nare,, NGT in place, Rt, scant dried blood coming out of right ear neck - no JVD, trachea midline heart - irregularly irregular, s1 s2, 1-2/6 systolic murmur RUSB lungs - CTA b/l abd - BS+,no ttp, Rodriguez catheter in place draining pink-tinged urine ext - no edema neuro - 4/5 strength in RLE, 4/5 RUE much improved, 5/5 otherwise, +right facial droop, dysarthria Results & Data Results & Data ([facility]) Vital Signs (Past 12 Hours) Vital Signs Temp Pulse Pulse Pulse Resp BP Pulse Ox 03/11/22 08:00 70 03/11/22 11:44 37.1 C 71 17 185/102 H 97 03/11/22 07:35 37.3 C 85 19 177/87 H 99 03/11/22 03:24 36.4 C L 80 20 154/84 H 98 O2 Del Method O2 Flow Rate 03/11/22 08:00 03/11/22 11:44 Room Air 03/11/22 07:35 Oxymask 2 03/11/22 03:24 Oxymask 2 Laboratory Results 03/11/22 03/11/22 03/11/22 Range/Units 17:56 12:19 06:11 WBC (4.8-10.8) K/ul RBC (4.63-6.08) M/uL Hgb (14.0-18.0) g/dl Hct (40.1-51.0) % MCV (80.0-100.0) fL MCH (25.0-34.0) pg MCHC (32.0-36.0) g/dL RDW Std Deviation (36.4-46.3) fL RDW Coeff of Eben (11.5-14.5) % Plt Count (130-400) K/uL MPV (9.4-12.4) fL Immature Gran % (Auto) % Neut % (Auto) % Lymph % (Auto) % Davie % (Auto) % Eos % (Auto) % Baso % (Auto) % Neut # (Auto) (1.4-6.5) K/uL Lymph # (Auto) (1.2-3.4) K/uL Davie # (Auto) (0.24-0.82) K/uL Eos # (Auto) (0-0.50) K/uL Baso # (Auto) (0-0.2) K/uL Immature Gran # (Auto) (0.00-0.02) K/uL APTT (21.0-31.0) Seconds PTT Ratio Sodium 138 (136-145) mmol/L Potassium 3.3 L (3.5-5.1) mmol/L Chloride 107 (98-107) mmol/L Carbon Dioxide 26 (21-32) mmol/L Anion Gap 5 (3-11) BUN 7 (6-23) mg/dl Creatinine 0.96 (0.6-1.4) mg/dl Est Cr Clr Drug Dosing 65.9 ml/min Est GFR ( Amer) 82.6 ml/min Est GFR (Non-Af Amer) 71.3 ml/min BUN/Creatinine Ratio 7.3 L (10-20) Glucose 167 H (70-99(Fasting)) mg/dl POC Glucose 190 H 187 H (70-99) mg/dl Calcium 8.8 (8.5-10.1) mg/dl Phosphorus 3.2 (2.5-4.9) mg/dl Magnesium 1.9 (1.7-2.4) mg/dl 03/11/22 03/11/22 03/11/22 Range/Units 06:11 06:11 05:48 WBC 7.05 (4.8-10.8) K/ul RBC 3.86 L (4.63-6.08) M/uL Hgb 11.5 L (14.0-18.0) g/dl Hct 34.4 L (40.1-51.0) % MCV 89.1 (80.0-100.0) fL MCH 29.8 (25.0-34.0) pg MCHC 33.4 (32.0-36.0) g/dL RDW Std Deviation 44.9 (36.4-46.3) fL RDW Coeff of Eben 13.9 (11.5-14.5) % Plt Count 126 L (130-400) K/uL MPV 11.8 (9.4-12.4) fL Immature Gran % (Auto) 0.6 % Neut % (Auto) 68.3 % Lymph % (Auto) 18.6 % Davie % (Auto) 8.7 % Eos % (Auto) 3.4 % Baso % (Auto) 0.4 % Neut # (Auto) 4.82 (1.4-6.5) K/uL Lymph # (Auto) 1.31 (1.2-3.4) K/uL Davie # (Auto) 0.61 (0.24-0.82) K/uL Eos # (Auto) 0.24 (0-0.50) K/uL Baso # (Auto) 0.03 (0-0.2) K/uL Immature Gran # (Auto) 0.04 H (0.00-0.02) K/uL APTT 63.5 H* (21.0-31.0) Seconds PTT Ratio 2.3 Sodium (136-145) mmol/L Potassium (3.5-5.1) mmol/L Chloride (98-107) mmol/L Carbon Dioxide (21-32) mmol/L Anion Gap (3-11) BUN (6-23) mg/dl Creatinine (0.6-1.4) mg/dl Est Cr Clr Drug Dosing ml/min Est GFR ( Amer) ml/min Est GFR (Non-Af Amer) ml/min BUN/Creatinine Ratio (10-20) Glucose (70-99(Fasting)) mg/dl POC Glucose 167 H (70-99) mg/dl Calcium (8.5-10.1) mg/dl Phosphorus (2.5-4.9) mg/dl Magnesium (1.7-2.4) mg/dl 03/10/22 Range/Units 23:40 WBC (4.8-10.8) K/ul RBC (4.63-6.08) M/uL Hgb (14.0-18.0) g/dl Hct (40.1-51.0) % MCV (80.0-100.0) fL MCH (25.0-34.0) pg MCHC (32.0-36.0) g/dL RDW Std Deviation (36.4-46.3) fL RDW Coeff of Eben (11.5-14.5) % Plt Count (130-400) K/uL MPV (9.4-12.4) fL Immature Gran % (Auto) % Neut % (Auto) % Lymph % (Auto) % Davie % (Auto) % Eos % (Auto) % Baso % (Auto) % Neut # (Auto) (1.4-6.5) K/uL Lymph # (Auto) (1.2-3.4) K/uL Davie # (Auto) (0.24-0.82) K/uL Eos # (Auto) (0-0.50) K/uL Baso # (Auto) (0-0.2) K/uL Immature Gran # (Auto) (0.00-0.02) K/uL APTT (21.0-31.0) Seconds PTT Ratio Sodium (136-145) mmol/L Potassium (3.5-5.1) mmol/L Chloride (98-107) mmol/L Carbon Dioxide (21-32) mmol/L Anion Gap (3-11) BUN (6-23) mg/dl Creatinine (0.6-1.4) mg/dl Est Cr Clr Drug Dosing ml/min Est GFR ( Amer) ml/min Est GFR (Non-Af Amer) ml/min BUN/Creatinine Ratio (10-20) Glucose (70-99(Fasting)) mg/dl POC Glucose 149 H (70-99) mg/dl Calcium (8.5-10.1) mg/dl Phosphorus (2.5-4.9) mg/dl Magnesium (1.7-2.4) mg/dl Diagnostic Findings Numerous chest x-rays reviewed images personally myself today and agree with the following reports: Chest X-Ray 03/11/22 07:00 XR chest 1V portable HISTORY: 86 years-old Male f/u NGT placement status post placement of a feeding tube COMPARISON: Chest radiograph 03/10/2022 TECHNIQUE: Portable AP view of the chest FINDINGS: Cardiac silhouette is enlarged. Prior median sternotomy. Atherosclerosis of the aorta. No pneumothorax. Trace pleural effusions. Pulmonary vascular congestion with mildly decreased interstitial coarsening. Degenerative changes of the shoulders and spine. A feeding tube is present which is coiled within the proximal stomach with distal tip projected superiorly near the gastroesophageal junction. IMPRESSION: 1. Cardiomegaly with mildly improved pulmonary edema. 2. Distal tip of feeding tube projects superiorly at the gastroesophageal junction. Repositioning is needed. ACT 112: Negative or not required by law. The above report was generated using voice recognition software. It may contain grammatical, syntax or spelling errors. Electronically signed by: Ranjeet Cisneros M.D. 03/11/2022 7:16 AM Chest X-Ray 03/11/22 12:00 SINGLE VIEW CHEST CLINICAL HISTORY: Enteric tube placement. FINDINGS: An AP, portable, upright chest radiograph is compared to study performed earlier the same day 03/11/2022. Correlation is made with chest CT dated 10/25/2021. The examination is degraded by portable technique and patient rotation. An enteric tube is in place. The tip of the tube projects superiorly at the gastroesophageal junction. This may be contained within a hiatal hernia. The patient is status post midline sternotomy. The heart is enlarged noting atherosclerotic calcification of the thoracic aorta. Pulmonary vascular congestion has almost completely resolved. Chronic interstitial thickening is similar to previous. There is bibasilar scarring/atelectasis. The lungs and pleural spaces are otherwise clear. No pneumothorax is seen. The skeletal structures are osteopenic. The bony thorax is grossly intact. IMPRESSION: 1. An enteric tube is in place. The tip projects superiorly at the level of the gastroesophageal junction and this may be located within a hiatal hernia. Repositioning is indicated. 2. Cardiomegaly . Pulmonary vascular congestion has almost completely resolved. ACT 112: Negative or not required by law. Electronically signed by: Crow Wells M.D. 03/11/2022 1:06 PM Chest X-Ray 03/11/22 16:00 XR chest 1V portable HISTORY: NGT placement COMPARISON: Chest 03/11/2022. FINDINGS: Nasogastric tube is curled within the stomach. This has been advanced in the interval. No definite pneumothorax. No pleural effusions. The heart remains enlarged. There is mild pulmonary vascular congestion without overt edema. There are poststernotomy changes. IMPRESSION: The nasogastric tube has been advanced and now resides within the body of the stomach. ACT 112: Negative or not required by law. Electronically signed by: Guy Burdick M.D. 03/11/2022 4:46 PM PG Care Time/CCT Total # of Minutes Spent Total Time Spent with Patient: Total time spent is greater than 50% in coordination of care (as documented) at patient's floor/unit and/or counseling patient: Coding Level of Care Code 70279 Subseq Hosp Care Lvl 3 Diagnoses Stroke I63.9 Status post myringotomy with tube placement of both ears Z96.22 Urinary retention R33.9 S/P nasal polypectomy Z98.890 Atrial fibrillation I48.21 Atrial fibrillation type: permanent Coronary artery disease I25.10 Stage III chronic kidney disease N18.3 DM type 2 (diabetes mellitus, type 2) E11.9; Z79.4 Diabetes mellitus complication status: without complication 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 HTN (hypertension) I10 Hypothyroid E03.9 Hypothyroidism type: acquired Hyperlipidemia E78.2 Hyperlipidemia type: mixed hyperlipidemia GERD (gastroesophageal reflux disease) K21.9 Esophagitis presence: esophagitis presence not specified Memory impairment R41.3 BPH (benign prostatic hyperplasia) N40.0 Thrombocytopenia D69.6 Depression F32.9 B12 deficiency E53.8 Dysphagia R13.10 (1) DM type 2 (diabetes mellitus, type 2) Diabetes mellitus complication status: without complication 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 Qualified Code(s): E11.9 - Type 2 diabetes mellitus without complications; Z79.4 - 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
[2022-03-11] MEDS: hydrALAZINE HCL 20 MG/ML VIAL IV PRN (13:24)
--- NOTE | 2022-03-11 16:47 | XRay Report ---
XR chest 1V portable HISTORY: NGT placement COMPARISON: Chest 03/11/2022. FINDINGS: Nasogastric tube is curled within the stomach. This has been advanced in the interval. No d efinite pneumothorax. No pleural effusions. The heart remains enlarged. There is mild pulmonary vascu lar congestion without overt edema. There are poststernotomy changes. IMPRESSION: The nasogastric tube has been advanced and now resides within the body of the stomach. ACT 112: Negative or not required by law. Electronically signed by: Guy Burdick M.D. 03/11/2022 4:46 PM
[2022-03-11] MEDS ORDERED: lisinopril 20 MG TAB NG STA (17:42)
[2022-03-11] MEDS ORDERED: amLODIPine BESYLATE 5 MG TAB NG ONE (17:42)
[2022-03-11] MEDS: FIBERSOURCE HN 1.2 CAL 1000 ML BAG NG SCH (18:17)
[2022-03-11] MEDS: ATORVASTATIN 40 MG TAB NG SCH (21:46)
[2022-03-11] MEDS: TAMSULOSIN HCL 0.4 MG CAP NG SCH (21:46)
[2022-03-12] MEDS: INSULIN ASPART PER UNIT SC SCH ×5 (00:30→18:18)
[2022-03-12] MEDS: TUBE FEEDING WATER FLUSH NG SCH ×6 (02:00→21:20)
[2022-03-12] MEDS: HEPARIN SODIUM/DEXTROSE 25,000 UNITS/500 ML BAG IV SCH ×2 (05:04→18:19)
[2022-03-12] MEDS: LEVOTHYROXINE SODIUM 50 MCG TABLET NG SCH (06:38)
[2022-03-12 06:43] LABS: Partial Thromboplastin Ratio 2.2
[2022-03-12 06:47] LABS: Partial Thromboplastin Time 59.3 Seconds (21.0-31.0)
[2022-03-12] MEDS: POLYETHYLENE (MIRALAX) 17 GM PACK NG SCH (09:16)
[2022-03-12] MEDS: PREGABALIN 100 MG CAP PO SCH ×3 (09:16→21:17)
[2022-03-12] MEDS: THIAMINE HCL 100 MG in SYRINGE 9 ML IV SCH (09:16)
[2022-03-12] MEDS: CARBIDOPA/LEVODOPA 25/100MG TAB NG SCH ×3 (09:17→21:17)
[2022-03-12] MEDS: CLOPIDOGREL BISULFATE 75 MG TAB PEG SCH (09:17)
[2022-03-12] MEDS: LANSOPRAZOLE 15 MG SOLTAB NG SCH (09:17)
[2022-03-12] MEDS: amLODIPine BESYLATE 5 MG TAB PO SCH (09:17)
[2022-03-12] MEDS: DOCUSATE SODIUM SYRUP 100 MG/10 ML UDC NG SCH ×2 (09:17→21:18)
[2022-03-12] MEDS: lisinopril 40 MG TAB PO SCH (09:17)
[2022-03-12] MEDS: SODIUM CHLORIDE 0.65% NA SOLN 45 ML (OCEAN) SCH ×4 (09:18→18:14)
[2022-03-12] MEDS: CYANOCOBALAMIN (B-12) 500 MCG TABLET NG SCH (09:18)
[2022-03-12 10:11] LABS: Calcium 8.9 mg/dl (8.5-10.1); Creatinine Clr Calc Pharmacy 64.3 ml/min; Est GFR (African American) 78.6 ml/min; Est GFR (Non-African American) 67.8 ml/min; Potassium 3.4 mmol/L (3.5-5.1)
[2022-03-12] MEDS: OFLOXACIN 0.3% 75 DROPS/5 ML BTL OTB SCH ×2 (10:11→21:20)
[2022-03-12] MEDS: POTASSIUM CHLORIDE 20 MEQ in D5W AND LACTATED RINGERS 1,000 ML IV SCH (11:50)
[2022-03-12 16:14] LABS: Appearance Urine Clear (Clear); Bacteria Urine Automated Negative (Negative); Bilirubin Urine Negative (Negative); Blood Urine 3+ (Negative); Cast Urine Automated 0 /lpf (0-5); Color Urine Yellow; Epithelial Cell Urine Auto 0-5 /lpf (0-5); Glucose Urine UA Negative (Negative); Ketones Urine Negative (Negative); Leukocyte Esterase Urine Trace (Negative); Nitrite Urine Negative (Negative); Protein Urine Negative (Negative); Specific Gravity Urine 1.006 (1.000-1.030); Urobilinogen Urine Negative (Negative); pH Urine 7.5 (4.5-7.5)
--- NOTE | 2022-03-12 19:37 | Hospitalist Progress Note ---
Date of Service March 12, 2022 Assessment & Plan (1) Stroke: Plan: Left basal ganglia/posterior limb of internal capsule. Thrombotic (off plavix recently) vs embolic etiology both possible (known ana, was off Eliquis for his recent sinus surgery). Appreciate neurology consult earlier in the stay. Continue PT, OT, speech therapy. Will ask speech to see again tomorrow and repeat a swallow evaluation. Right arm weakness has improved since the time I saw him about a week ago. Failed video swallow on 03/05/22. NPO since. Finally with coresafe NG tube placement and initiation of enteral feedings yesterday. For stroke prevention - cont heparin drip in tim of Eliquis. Due to recent issues with epistaxis, bleeding from ear canals, NG tube issues, etc - plavix was on hold. Now resumed. Will need rehab at SNF level post-discharge. (2) Status post myringotomy with tube placement of both ears: Plan: 03/01/22 - s/p Bilateral Myringotomy and Tube Insertion, Image guided bilateral endoscopic sinus surgery with bilateral frontal, total ethmoid, and maxillary sinus antrostomies Dr Ge surgery performed due to chronic sinus issues/sinusitis, polyps, chronic OME b/l, etc. now on ofloxacin drops b/l ears twice daily as recommended by Dr Ge recent bloody otorrhea improved (3) S/P nasal polypectomy: Plan: 03/01/[address] Ge 03/08/22 - Endoscopic Sinus Debridement - also by Dr Ge (4) Atrial fibrillation: Plan: permanent / stable Heparin drip in tim of Eliquis add back metoprolol BID via NG tube rates controlled (5) Coronary artery disease: Plan: no ischemic symptoms statin resumed plavix resumed low-dose metoprolol BID (6) Stage III chronic kidney disease: Plan: lasix on hold BMPs stable BMP in am (7) DM type 2 (diabetes mellitus, type 2): Plan: uncontrolled cont novolog SSI add lantus 10 units HS HbA1C 6.7% (8) HTN (hypertension): Plan: uncontrolled add metoprolol 12.5mg BID and titrate as needed cont lisinopril cont amlodipine (9) Hypothyroid: Plan: Cont levothyroxine 50 mcg daily most recent TSH wnl (2.3 in 09/2021) (10) Hyperlipidemia: Plan: cont statin (11) GERD (gastroesophageal reflux disease): Plan: Continue Prevacid (12) Memory impairment: 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 platelets remain stable and at baseline (15) Depression: Plan: cannot crush Cymbalta and use via NG tube thus it remains on hold consider SSRI (16) B12 deficiency: Plan: resolved b12 level >1000 (17) Dysphagia: Plan: known issue at baseline multiple etiologies - prior CVAs, esophageal stenosis (required dilation 07/2021), etc failed his bedside swallows and his video swallow early in admission remains NPO with coresafe feeding tube it has been about 6 days since last swallow eval will ask speech to re-eval tomorrow [facility] had seen earlier in admission they recommended a 2-week period of observation for improved swallow before placing permanent PEG tube (18) Fever: Plan: etiology? repeat COVID test neg ua largely normal although blood present has o2 requirement - repeat cxr in am; cxr 03/11 neg for infiltrates could have brewing sinusitis in light of recent sinus surgery, etc (19) Kidney stones: Plan: seen on prior CT abd/pelvis if urine culture grows bacteria and/or fevers persist consider repeat CT to ensure he has no obstructing stone Plan son updated by phone this evening questions answered Admission and Anticipated Discharge Date Admission Date: March 02, 2022 Subjective patient nonvocal during the visit we used a clipboard and paper/pen and written questions to communicate he denied all complaints he stated he was "feeling good" last documented BM 03/09 per nursing staff no epistaxis per nursing staff no bloody otorrhea per staff no hemoptysis no vomiting tolerating NG tube feedings -- now at 20cc/hr Review of Systems Review of Systems: gen - feels good; low-grade fevers noted last 24 hours cv - no cp pulm - denies dyspnea GI - denies abd pain, nausea or vomiting neuro - moving arm better on right; by report was vocalizing over the weekend Physical Exam Physical Exam: gen - resting comfortably, following commands, using left arm preferentially; nonvocal mouth - MM dry, dried old blood in oral cavity nose - no epistaxis; NG tube in place ears - no otorrhea neck - no JVD heart - irregularly irregular, s1 s2, 1/6 systolic murmur RUSB lungs - CTA b/l, slightly course BS b/l abd - soft, BS+, NT, ND ext - no edema of feet, pulses 2+ b/l; mild edema right arm neuro - right facial droop; expressive aphasia; right arm - strength about 3- 4/5; strength LLE seems to be 5/5; RLE - 3/5 Results & Data Results & [facility] ([facility]) Vital Signs (Past 12 Hours) Vital Signs Temp Pulse Resp BP Pulse Ox O2 Del Method O2 Flow Rate 03/12/22 19:25 37 C 74 22 157/83 H 97 Oxymask 5 03/12/22 15:18 37.0 C 74 18 186/83 H 98 Oxymask 03/12/22 12:44 72 18 140/76 98 Oxymask 03/12/22 10:59 Room Air Laboratory Results Laboratory Results - last 24 hr 03/12/22 03/12/22 03/12/22 00:23 05:47 06:28 APTT 59.3 H* PTT Ratio 2.2 Sodium Potassium Chloride Carbon Dioxide Anion Gap BUN Creatinine Est Cr Clr Drug Dosing Est GFR ( Amer) Est GFR (Non-Af Amer) BUN/Creatinine Ratio Glucose POC Glucose 196 H 186 H Calcium Urine Color Urine Appearance Urine pH Ur Specific [place] Urine Protein Urine Glucose (UA) Urine Ketones Urine Blood Urine Nitrite Urine Bilirubin Urine Urobilinogen Ur Leukocyte Esterase Urine WBC (Auto) Urine RBC (Auto) U Hyaline Cast (Auto) U Epithel Cells (Auto) Urine Bacteria (Auto) SARS-CoV-2 (PCR) 03/12/22 03/12/22 03/12/22 08:54 10:45 12:42 APTT PTT Ratio Sodium 138 Potassium 3.4 L Chloride 107 Carbon Dioxide 26 Anion Gap 5 BUN 7 Creatinine 1.00 Est Cr Clr Drug Dosing 64.3 Est GFR ( Amer) 78.6 Est GFR (Non-Af Amer) 67.8 BUN/Creatinine Ratio 7.0 L Glucose 186 H POC Glucose 218 H Calcium 8.9 Urine Color Urine Appearance Urine pH Ur Specific [place] Urine Protein Urine Glucose (UA) Urine Ketones Urine Blood Urine Nitrite Urine Bilirubin Urine Urobilinogen Ur Leukocyte Esterase Urine WBC (Auto) Urine RBC (Auto) U Hyaline Cast (Auto) U Epithel Cells (Auto) Urine Bacteria (Auto) SARS-CoV-2 (PCR) NEGATIVE 03/12/22 03/12/22 15:25 18:00 APTT PTT Ratio Sodium Potassium Chloride Carbon Dioxide Anion Gap BUN Creatinine Est Cr Clr Drug Dosing Est GFR ( Amer) Est GFR (Non-Af Amer) BUN/Creatinine Ratio Glucose POC Glucose 199 H Calcium Urine Color Yellow Urine Appearance Clear Urine pH 7.5 Ur Specific [place] 1.006 Urine Protein Negative Urine Glucose (UA) Negative Urine Ketones Negative Urine Blood 3+ H Urine Nitrite Negative Urine Bilirubin Negative Urine Urobilinogen Negative Ur Leukocyte Esterase Trace H Urine WBC (Auto) 1-5 Urine RBC (Auto) 10-30 H U Hyaline Cast (Auto) 0 U Epithel Cells (Auto) 0-5 Urine Bacteria (Auto) Negative SARS-CoV-2 (PCR) PG Care Time/CCT Total # of Minutes Spent Total Time Spent with Patient: Total time spent is greater than 50% in coordination of care (as documented) at patient's floor/unit and/or counseling patient: Coding Level of Care Code 59742 Subseq Hosp Care Lvl 3 Diagnoses Stroke I63.9 Status post myringotomy with tube placement of both ears Z96.22 S/P nasal polypectomy Z98.890 Atrial fibrillation I48.21 Atrial fibrillation type: permanent Coronary artery disease I25.10 Stage III chronic kidney disease N18.3 DM type 2 (diabetes mellitus, type 2) E11.9; Z79.4 Diabetes mellitus complication status: without complication Diabetes mellitus pulmonary physician insulin use: with senior living use HTN (hypertension) I10 Hypothyroid E03.9 Hypothyroidism type: acquired Hyperlipidemia E78.2 Hyperlipidemia type: mixed hyperlipidemia GERD (gastroesophageal reflux disease) K21.9 Esophagitis presence: esophagitis presence not specified Memory impairment R41.3 BPH (benign prostatic hyperplasia) N40.0 Thrombocytopenia D69.6 Depression F32.9 B12 deficiency E53.8 Dysphagia R13.10 Fever R50.9 Kidney stones N20.0 (1) DM type 2 (diabetes mellitus, type 2) Diabetes mellitus complication status: without complication Diabetes mellitus pulmonary physician insulin use: with senior living use Qualified Code(s): E11.9 - Type 2 diabetes mellitus without complications; Z79.4 - assembler installer structures (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
[2022-03-12] MEDS: TAMSULOSIN HCL 0.4 MG CAP NG SCH (21:17)
[2022-03-12] MEDS: ATORVASTATIN 40 MG TAB NG SCH (21:18)
[2022-03-12] MEDS: LANTUS PER UNIT CHARGE SQ SCH (21:18)
[2022-03-12] MEDS: METOPROLOL TARTRATE 25 MG TAB OG SCH (21:19)
[2022-03-13] MEDS ORDERED: INSULIN ASPART PER UNIT SC SCH (02:00)
[2022-03-13] MEDS: POTASSIUM CHLORIDE 20 MEQ in D5W AND LACTATED RINGERS 1,000 ML IV SCH ×2 (02:44→17:44)
[2022-03-13] MEDS: TUBE FEEDING WATER FLUSH NG SCH ×5 (03:02→15:07)
[2022-03-13] MEDS: LEVOTHYROXINE SODIUM 50 MCG TABLET NG SCH (06:22)
[2022-03-13] MEDS: INSULIN ASPART PER UNIT SC SCH ×3 (06:23→18:32)
[2022-03-13 06:46] LABS: BUN Creatinine Ratio 8.1 (10-20); Calcium 8.7 mg/dl (8.5-10.1); Creatinine Clr Calc Pharmacy 63.9 ml/min; Est GFR (African American) 79.6 ml/min; Est GFR (Non-African American) 68.7 ml/min; Potassium 3.9 mmol/L (3.5-5.1)
[2022-03-13 06:48] LABS: Partial Thromboplastin Ratio 2.3
[2022-03-13 06:54] LABS: Partial Thromboplastin Time 61.9 Seconds (21.0-31.0)
--- NOTE | 2022-03-13 07:41 | XRay Report ---
SINGLE VIEW CHEST CLINICAL HISTORY: Cough. FINDINGS: An AP, portable, upright chest radiograph is compared to study dated 03/11/2022. The patient is status post midline sternotomy. An enteric tube is unchanged in position. The heart is enlarged n oting atherosclerotic calcification of the thoracic aorta. There is mild pulmonary vascular congestio n. Chronic interstitial thickening is similar to previous. Atelectasis is seen at the lung bases. The lungs and pleural spaces are otherwise clear. No pneumothorax is seen. The skeletal structures are o steopenic. The bony thorax is grossly intact. IMPRESSION: 1. Cardiomegaly with mild pulmonary vascular congestion. 2. No airspace consolidation or large pleural effusion is identified. ACT 112: Negative or not required by law. Electronically signed by: Crow Wells M.D. 03/13/2022 7:40 AM
[2022-03-13] MEDS: THIAMINE HCL 100 MG in SYRINGE 9 ML IV SCH (07:42)
[2022-03-13] MEDS: CARBIDOPA/LEVODOPA 25/100MG TAB NG SCH ×3 (07:42→20:11)
[2022-03-13] MEDS: POLYETHYLENE (MIRALAX) 17 GM PACK NG SCH (07:42)
[2022-03-13] MEDS: CLOPIDOGREL BISULFATE 75 MG TAB PEG SCH (07:43)
[2022-03-13] MEDS: LANSOPRAZOLE 15 MG SOLTAB NG SCH (07:43)
[2022-03-13] MEDS: amLODIPine BESYLATE 5 MG TAB PO SCH (07:43)
[2022-03-13] MEDS: METOPROLOL TARTRATE 25 MG TAB OG SCH ×2 (07:43→20:11)
[2022-03-13] MEDS: CYANOCOBALAMIN (B-12) 500 MCG TABLET NG SCH (07:43)
[2022-03-13] MEDS: lisinopril 40 MG TAB PO SCH (07:43)
[2022-03-13] MEDS: DOCUSATE SODIUM SYRUP 100 MG/10 ML UDC NG SCH ×2 (07:43→20:11)
[2022-03-13] MEDS: SODIUM CHLORIDE 0.65% NA SOLN 45 ML (OCEAN) SCH ×4 (07:44→16:14)
[2022-03-13] MEDS: OFLOXACIN 0.3% 75 DROPS/5 ML BTL OTB SCH ×2 (07:44→21:35)
[2022-03-13] MEDS: PREGABALIN 100 MG CAP PO SCH ×3 (07:46→20:11)
[2022-03-13] MEDS: LANTUS PER UNIT CHARGE SQ SCH ×2 (11:22→21:35)
[2022-03-13] MEDS: cefTRIAXone SODIUM 2,000 MG in DEXTROSE 5% 50 ML IV SCH (11:22)
--- NOTE | 2022-03-13 12:00 | XRay Report ---
SINGLE VIEW CHEST CLINICAL HISTORY: Enteric tube placement. FINDINGS: An AP, portable, upright chest radiograph is compared to study performed earlier the same d ay 03/13/2022. The patient is status post midline sternotomy. The tip of the enteric tube projects ove r the distal esophagus. The heart is enlarged noting atherosclerotic calcification of the thoracic ao rta. There is mild pulmonary vascular congestion. Chronic interstitial thickening is similar to previ ous. Atelectasis is seen at the lung bases. The lungs and pleural spaces are otherwise clear. No pneu mothorax is seen. The skeletal structures are osteopenic. The bony thorax is grossly intact. Cholecys tectomy clips are noted in the right upper quadrant. IMPRESSION: 1. The tip of the enteric tube projects over the distal esophagus. Repositioning is indicated. 2. Cardiomegaly with mild pulmonary vascular congestion. 3. No airspace consolidation or large pleural effusion is identified. ACT 112: Negative or not required by law. Electronically signed by: Crow Wells M.D. 03/13/2022 11:59 AM
[2022-03-13] MEDS ORDERED: OXYMETAZOLINE 0.05% 30 ML BTL ONE (15:30)
[2022-03-13] MEDS ORDERED: GELATIN SPONGE 12-7MM ONE (15:31)
[2022-03-13] MEDS: TAMSULOSIN HCL 0.4 MG CAP NG SCH (20:11)
[2022-03-13] MEDS: ATORVASTATIN 40 MG TAB NG SCH (20:11)
--- NOTE | 2022-03-13 22:20 | Hospitalist Progress Note ---
Date of Service March 13, 2022 Assessment & Plan (1) Stroke: Plan: Left basal ganglia/posterior limb of internal capsule. Thrombotic (off plavix recently) vs embolic etiology both possible (known aalmaz, was off Eliquis for his recent sinus surgery). Appreciate neurology consult earlier in the stay. Continue PT, OT, speech therapy. Right arm weakness has improved since the time I saw him about a week ago. Failed video swallow on 03/05/22. NPO since. s/p coresafe NG tube placement 03/11 - unfortunately he self-removed today. Will NOT place back. Speech saw again - planning video swallow tomorrow am. This will dictate the rest of his stay - I am not optimistic there has been any improvement. If he continues to aspirates then PEG placement with GI. Due to ongoing issues with epistaxis - hold heparin. Unable to give plavix because of NPO status and NG tube being gone. (2) Epistaxis: Plan: right nostril today - in setting of self-removed NG tube. afrin x 1 this am. then afrin nosebleed protocol thereafter as needed. could use gelfoam if needed. Dr Ge aware of today's events. (3) Status post myringotomy with tube placement of both ears: Plan: 03/01/22 - s/p Bilateral Myringotomy and Tube Insertion, Image guided bilateral endoscopic sinus surgery with bilateral frontal, total ethmoid, and maxillary sinus antrostomies Dr Ge surgery performed due to chronic sinus issues/sinusitis, polyps, chronic OME b/l, etc. now on ofloxacin drops b/l ears twice daily as recommended by Dr Ge recent bloody otorrhea improved started rocephin due to concern of sinusitis with low-grade fevers, severe congestion, etc. cxr w/o definitive pneumonia (4) S/P nasal polypectomy: Plan: 03/01/[address] Ge 03/08/22 - Endoscopic Sinus Debridement - also by Dr Ge (5) Atrial fibrillation: Plan: permanent / stable Heparin drip on hold due to ongoing epistaxis rates controlled (6) Coronary artery disease: Plan: no ischemic symptoms resume statin, plavix, BB when able to give PO or NG (7) Stage III chronic kidney disease: Plan: lasix on hold BMPs stable BMP in am (8) DM type 2 (diabetes mellitus, type 2): Plan: improving with lantus + novolog HbA1C 6.7% (9) HTN (hypertension): Plan: BPs reasonable even off of usual meds (10) Hypothyroid: Plan: resume levothyroxine 50 mcg daily - when able most recent TSH wnl (2.3 in 09/2021) (11) Hyperlipidemia: Plan: resume statin when able (12) GERD (gastroesophageal reflux disease): Plan: Continue Prevacid (13) Memory impairment: Plan: 2nd to vascular disease h/o Parkinsonism resume Sinemet 0.5 mg TID when able (14) BPH (benign prostatic hyperplasia): Plan: with urinary retention s/p farley insertion (15) Thrombocytopenia: Plan: chronic, typically runs low 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 platelets remain stable and at baseline (16) Depression: Plan: cannot crush Cymbalta and use via NG tube thus it remains on hold consider SSRI (17) B12 deficiency: Plan: resolved b12 level >1000 (18) Dysphagia: Plan: known issue at baseline multiple etiologies - prior CVAs, esophageal stenosis (required dilation 07/2021), etc failed his bedside swallows and his video swallow early in admission repeat video swallow tomorrow [facility] had seen earlier in admission they recommended a 2-week period of observation for improved swallow before pl acing permanent PEG tube (19) Fever: Plan: etiology? sinusitis? microaspiration? but no overt pneumonia on cxr today repeat COVID test neg urine cx neg initiated rocephin 2gm daily to cover sinuses (20) Kidney stones: Plan: seen on prior CT abd/pelvis if urine culture grows bacteria and/or fevers persist consider repeat CT to ensure he has no obstructing stone Plan son updated by phone this evening once again questions answered care d/w Dr Ge - ENT Admission and Anticipated Discharge Date Admission Date: March 02, 2022 Subjective this am patient self-removed his NG tube gave order to staff to not place back due to previous difficulties with the tube speech saw - video swallow planned for tomorrow during my visit patient had slow trickle of blood from the right nare I applied pressure along with afrin x 1 for this bleeding stopped he had hard time clearing ANY secretions from his throat; gentle suction given for these secretions at one point he had laryngospasm and became cyanotic from such via paper/pen communication he stated he felt OK and denied pain in any location tele - a.fib, rates acceptable Review of Systems Review of Systems: HENT - congested cv - no cp pulm - cough, denies sob GI - denies pain Physical Exam Physical Exam: gen - coughing, trying to clear secretions without success, awake/alert mouth - MM very dry, dried old blood in oral cavity, secretions posteriorly nose - mild epistaxis right nare with clot anterior nostril; NG tube has been removed ears - no otorrhea neck - no JVD heart - irregularly irregular, s1 s2, 1/6 systolic murmur RUSB lungs - course BS b/l abd - soft, BS+, NT, ND ext - no edema of feet, pulses 2+ b/l; mild edema right arm neuro - right facial droop; expressive aphasia - ongoing, no change; right arm/leg weakness unchanged Results & Data Results & Data ([facility]) Vital Signs (Past 12 Hours) Vital Signs Temp Pulse Pulse Resp BP Pulse Ox O2 Del Method 03/13/22 19:06 94 Room Air 03/13/22 19:05 36.5 C 70 16 142/73 H 89 L Room Air 03/13/22 16:00 Room Air 03/13/22 15:09 37.3 C 79 22 137/84 94 Oxymask 03/13/22 11:27 37.4 C 71 24 129/66 95 Oxymask O2 Flow Rate 03/13/22 19:06 03/13/22 19:05 03/13/22 16:00 03/13/22 15:09 5 03/13/22 11:27 5 Laboratory Results Laboratory Results - last 24 hr 03/13/22 03/13/22 03/13/22 01:35 06:03 06:03 APTT 61.9 H* PTT Ratio 2.3 Sodium 138 Potassium 3.9 Chloride 107 Carbon Dioxide 26 Anion Gap 5 BUN 8 Creatinine 0.99 Est Cr Clr Drug Dosing 63.9 Est GFR ( Amer) 79.6 Est GFR (Non-Af Amer) 68.7 BUN/Creatinine Ratio 8.1 L Glucose 221 H POC Glucose 159 H Calcium 8.7 03/13/22 03/13/22 03/13/22 06:18 11:28 18:28 APTT PTT Ratio Sodium Potassium Chloride Carbon Dioxide Anion Gap BUN Creatinine Est Cr Clr Drug Dosing Est GFR ( Amer) Est GFR (Non-Af Amer) BUN/Creatinine Ratio Glucose POC Glucose 220 H 238 H 159 H Calcium 03/13/22 21:14 APTT PTT Ratio Sodium Potassium Chloride Carbon Dioxide Anion Gap BUN Creatinine Est Cr Clr Drug Dosing Est GFR ( Amer) Est GFR (Non-Af Amer) BUN/Creatinine Ratio Glucose POC Glucose 154 H Calcium PG Care Time/CCT Total # of Minutes Spent Total Time Spent with Patient: Total time spent is greater than 50% in coordination of care (as documented) at patient's floor/unit and/or counseling patient: Coding Level of Care Code 78096 Subseq Hosp Care Lvl 3 Diagnoses Stroke I63.9 Epistaxis R04.0 Status post myringotomy with tube placement of both ears Z96.22 S/P nasal polypectomy Z98.890 Atrial fibrillation I48.21 Atrial fibrillation type: permanent Coronary artery disease I25.10 Stage III chronic kidney disease N18.3 DM type 2 (diabetes mellitus, type 2) E11.9; Z79.4 Diabetes mellitus complication status: without complication Diabetes mellitus terminologist insulin use: with jail use HTN (hypertension) I10 Hypothyroid E03.9 Hypothyroidism type: acquired Hyperlipidemia E78.2 Hyperlipidemia type: mixed hyperlipidemia GERD (gastroesophageal reflux disease) K21.9 Esophagitis presence: esophagitis presence not specified Memory impairment R41.3 BPH (benign prostatic hyperplasia) N40.0 Thrombocytopenia D69.6 Depression F32.9 B12 deficiency E53.8 Dysphagia R13.10 Fever R50.9 Kidney stones N20.0 (1) DM type 2 (diabetes mellitus, type 2) Diabetes mellitus complication status: without complication Diabetes mellitus jail insulin use: with jail use Qualified Code(s): E11.9 - Type 2 diabetes mellitus without complications; Z79.4 - custodial (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
[2022-03-13] MEDS: HEPARIN SODIUM/DEXTROSE 25,000 UNITS/500 ML BAG IV SCH (22:56)
[2022-03-14] MEDS: INSULIN ASPART PER UNIT SC SCH ×4 (00:14→18:10)
[2022-03-14] MEDS: LEVOTHYROXINE SODIUM 50 MCG TABLET NG SCH (00:15)
[2022-03-14 07:27] LABS: Basophils # (auto) 0.03 K/uL (0-0.2); Basophils % (auto) 0.5 %; Eosinophils # (auto) 0.29 K/uL (0-0.50); Eosinophils % (auto) 4.4 %; Hematocrit (blood only) 33.4 % (40.1-51.0); Immature Granulocytes # (auto) 0.04 K/uL (0.00-0.02); Immature Granulocytes % (auto) 0.6 %; Lymphocytes # (auto) 1.14 K/uL (1.2-3.4); Lymphocytes % (auto) 17.2 %; Mean Corpuscular Hemoglobin 29.8 pg (25.0-34.0); Mean Corpuscular Hgb Conc 32.9 g/dL (32.0-36.0); Mean Corpuscular Volume 90.5 fL (80.0-100.0); Mean Platelet Volume 11.7 fL (9.4-12.4); Monocytes # (auto) 0.68 K/uL (0.24-0.82); Monocytes % (auto) 10.3 %; Neutrophils # (auto) 4.44 K/uL (1.4-6.5); Platelet Count 147 K/uL (130-400); RDW Coefficient of Variation 14.2 % (11.5-14.5); RDW Standard Deviation 47.2 fL (36.4-46.3); Red Blood Count 3.69 M/uL (4.63-6.08); White Blood Count 6.62 K/ul (4.8-10.8)
[2022-03-14 07:49] LABS: BUN Creatinine Ratio 8.3 (10-20); Est GFR (African American) 82.6 ml/min; Est GFR (Non-African American) 71.3 ml/min; Potassium 3.9 mmol/L (3.5-5.1)
[2022-03-14] MEDS: SODIUM CHLORIDE 0.65% NA SOLN 45 ML (OCEAN) SCH ×4 (08:03→15:04)
[2022-03-14] MEDS: POTASSIUM CHLORIDE 20 MEQ in D5W AND LACTATED RINGERS 1,000 ML IV SCH (09:08)
[2022-03-14] MEDS: amLODIPine BESYLATE 5 MG TAB PO SCH (09:10)
[2022-03-14] MEDS: CYANOCOBALAMIN (B-12) 500 MCG TABLET NG SCH (09:10)
[2022-03-14] MEDS: CARBIDOPA/LEVODOPA 25/100MG TAB NG SCH ×3 (09:10→20:10)
[2022-03-14] MEDS: CLOPIDOGREL BISULFATE 75 MG TAB PEG SCH (09:10)
[2022-03-14] MEDS: DOCUSATE SODIUM SYRUP 100 MG/10 ML UDC NG SCH ×2 (09:10→20:10)
[2022-03-14] MEDS: LANSOPRAZOLE 15 MG SOLTAB NG SCH (09:10)
[2022-03-14] MEDS: lisinopril 40 MG TAB PO SCH (09:10)
[2022-03-14] MEDS: PREGABALIN 100 MG CAP PO SCH ×3 (09:11→20:11)
[2022-03-14] MEDS: METOPROLOL TARTRATE 25 MG TAB OG SCH ×2 (09:11→20:11)
[2022-03-14] MEDS: POLYETHYLENE (MIRALAX) 17 GM PACK NG SCH (09:11)
[2022-03-14] MEDS: LANTUS PER UNIT CHARGE SQ SCH ×2 (09:47→21:09)
[2022-03-14] MEDS: cefTRIAXone SODIUM 2,000 MG in DEXTROSE 5% 50 ML IV SCH (09:47)
[2022-03-14] MEDS: THIAMINE HCL 100 MG in SYRINGE 9 ML IV SCH (09:48)
[2022-03-14] MEDS: OFLOXACIN 0.3% 75 DROPS/5 ML BTL OTB SCH ×2 (09:48→20:12)
--- NOTE | 2022-03-14 15:38 | Fluoroscopy Report ---
FL video swallow CLINICAL HISTORY: r/o aspiration . Facial droop, weakness TECHNIQUE: Video fluoroscopy of the pharyngeal region was performed as barium mixtures of varying con sistencies were administered to the patient by the speech pathologist. A formal esophagram was not pe rformed. COMPARISON: Prior swallow study 922 FINDINGS: Total fluoroscopy time: 1.4 minutes. Penetration and aspiration with delayed cough are seen with thin liquids. Pooling of barium was note d in the bilateral piriform sinuses and valleculae. IMPRESSION: Penetration and aspiration with delayed cough are seen. Please see the speech pathology report for further details. ACT 112: Negative or not required by law. Electronically signed by: Doc Thomas M.D. 03/14/2022 3:35 PM
[2022-03-14] MEDS: METOPROLOL TARTRATE 1 MG/ML VIAL IV SCH (17:36)
[2022-03-14] MEDS: ATORVASTATIN 40 MG TAB NG SCH (20:10)
[2022-03-14] MEDS: TAMSULOSIN HCL 0.4 MG CAP NG SCH (20:11)
--- NOTE | 2022-03-14 20:24 | Hospitalist Progress Note ---
Date of Service March 14, 2022 Assessment & Plan (1) Dysphagia: Plan: known issue at baseline even prior to this hospital stay multiple etiologies - prior CVAs, new/current CVA, esophageal stenosis (required dilation 07/2021), etc failed his bedside swallow and his video swallow on 03/05/22 NPO since then repeat video swallow today - aspirated most consistencies; did slightly ok with pudding thick but speech stated he had cyanotic spell again during the study speech feels safest option is strict NPO with PEG placement extensive discussion with patient today re: PEG tube placement, video swallow results, etc. he consistently stated via gesturing, head nods, etc that he wishes to pursue PEG placement (3 separate times he stated yes) I showed him pictures of a PEG and he understands all nutrition will be given via such spoke with Dr Fan from [facility] who will attempt to place the PEG tomorrow, 03/15 spoke with pt's son by phone re: video swallow results and my discussion with his father along with tentative plans for PEG tomorrow (2) Stroke: Plan: Left basal ganglia/posterior limb of internal capsule. Thrombotic (off plavix recently) vs embolic etiology both possible (known aalmaz, was off Eliquis for his recent sinus surgery). Appreciate neurology consult earlier in the stay. Continue PT, OT, speech therapy. Right arm weakness continues to improve. Speech has improved as well. Failed video swallow on 03/05/22. Failed video swallow again today. NPO since. s/p coresafe NG tube placement 03/11 - unfortunately he self-removed 03/13. Coresafe left out. PEG placement tomorrow. Hold heparin drip due to significant epistaxis yesterday. Plavix on hold - no way to give it to him due to NPO status. (3) Epistaxis: Plan: improved none overnight observe afrin protocol prn for recurrent nosebleed (4) Status post myringotomy with tube placement of both ears: Plan: 03/01/22 - s/p Bilateral Myringotomy and Tube Insertion, Image guided bilateral endoscopic sinus surgery with bilateral frontal, total ethmoid, and maxillary sinus antrostomies Dr Ge surgery performed due to chronic sinus issues/sinusitis, polyps, chronic OME b/l, etc. now on ofloxacin drops b/l ears twice daily as recommended by Dr Ge recent bloody otorrhea improved started rocephin due to concern of sinusitis with low-grade fevers, severe congestion, etc. -- day #2 of such cxr w/o definitive pneumonia (5) S/P nasal polypectomy: Plan: 03/01/[address] Ge 03/08/22 - Endoscopic Sinus Debridement - also by Dr Ge (6) Atrial fibrillation: Plan: permanent / stable Heparin drip on hold due to ongoing epistaxis rates controlled (7) Coronary artery disease: Plan: no ischemic symptoms resume statin, plavix, BB when able (8) Stage III chronic kidney disease: Plan: lasix on hold BMPs stable BMP in am (9) DM type 2 (diabetes mellitus, type 2): Plan: stable cont lantus + novolog HbA1C 6.7% (10) HTN (hypertension): Plan: BPs high since PO meds on hold restart lopressor 5mg IV q6h (11) Hypothyroid: Plan: resume levothyroxine 50 mcg daily when able most recent TSH wnl (2.3 in 09/2021) (12) Hyperlipidemia: Plan: resume statin when able (13) GERD (gastroesophageal reflux disease): Plan: Continue Prevacid (14) Memory impairment: Plan: 2nd to vascular disease h/o Parkinsonism resume Sinemet 0.5 mg TID when able (15) BPH (benign prostatic hyperplasia): Plan: with urinary retention s/p farley insertion (16) Thrombocytopenia: Plan: chronic, typically runs low 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 platelets remain stable and at baseline (147 today) (17) Depression: Plan: Cymbalta remains on hold (18) B12 deficiency: Plan: resolved b12 level >1000 (19) Fever: Plan: suspected to be sinus source day #2 rocephin 2gm daily to cover such cxr w/o pneumonia COVID testing negative urine culture negative (20) Kidney stones: Plan: seen on prior CT abd/pelvis if fevers recur consider repeat CT to ensure he has no obstructing stone Plan son updated by phone as noted above questions answered Admission and Anticipated Discharge Date Admission Date: March 02, 2022 Subjective no issues overnight tele with stable a.fib continues with episodes of central cyanosis when he is coughing or trying to clear his throat during my rounds he was awake, alert -- he even asked me twice to "call my son about the tube" [PEG] we had 20+ minute discussion re: PEG placement in light of failed video swallow today he was understandably frustrated; he has told staff throughout the day that he is hungry on 3 separate times during my discussion he stated he WOULD want a PEG tube I wrote down that the tube will not improve his quality of life and he communicated through gestures and head nods that he understood that concept he understands that with PEG placement he will not be allowed to eat/drink by mouth - again gestured that he understood no recurrent epistaxis Review of Systems Review of Systems: cv - no chest pain pulm - no dyspnea; mild cough present GI - no abd pain or nausea - farley remains in place neuro - right arm weakness improved and he is talking some Physical Exam Physical Exam: gen - very awake/alert today; he vocalized twice that he wanted me to call his son; gesturing appropriately and using head nods accurately to communicate his needs and wants mouth - MM very dry nose - no epistaxis either nare today ears - no otorrhea neck - no JVD heart - irregularly irregular, s1 s2, 1/6 systolic murmur RUSB lungs - course BS b/l but improved from yesterday abd - soft, BS+, NT, ND ext - no edema of feet, pulses 2+ b/l; mild edema right arm neuro - right facial droop; expressive aphasia - ongoing but improved today; right arm strength 4/5 today - best it has been the entire stay Results & Data Results & Data ([facility]) Vital Signs (Past 12 Hours) Vital Signs Temp Pulse Pulse Resp BP BP Pulse Ox 03/14/22 19:34 36.5 C 65 18 178/90 H 97 03/14/22 17:36 71 169/79 H 03/14/22 14:17 74 03/14/22 15:14 36.6 C 73 19 175/95 H 97 03/14/22 11:25 36.5 C 67 16 159/86 H 95 O2 Del Method O2 Flow Rate 03/14/22 19:34 Room Air 03/14/22 17:36 03/14/22 14:17 03/14/22 15:14 Oxymask 3 03/14/22 11:25 Room Air Laboratory Results Laboratory Results - last 24 hr 03/13/22 03/14/22 03/14/22 21:14 00:13 05:38 WBC RBC Hgb Hct MCV MCH MCHC RDW Std Deviation RDW Coeff of Eben Plt Count MPV Immature Gran % (Auto) Neut % (Auto) Lymph % (Auto) [place] % (Auto) Eos % (Auto) Baso % (Auto) Neut # (Auto) Lymph # (Auto) [place] # (Auto) Eos # (Auto) Baso # (Auto) Immature Gran # (Auto) Sodium Potassium Chloride Carbon Dioxide Anion Gap BUN Creatinine Est Cr Clr Drug Dosing Est GFR ( Amer) Est GFR (Non-Af Amer) BUN/Creatinine Ratio Glucose POC Glucose 154 H 137 H 154 H Calcium 03/14/22 03/14/22 03/14/22 07:04 07:04 11:28 WBC 6.62 RBC 3.69 L Hgb 11.0 L Hct 33.4 L MCV 90.5 MCH 29.8 MCHC 32.9 RDW Std Deviation 47.2 H RDW Coeff of Eben 14.2 Plt Count 147 MPV 11.7 Immature Gran % (Auto) 0.6 Neut % (Auto) 67.0 Lymph % (Auto) 17.2 [place] % (Auto) 10.3 Eos % (Auto) 4.4 Baso % (Auto) 0.5 Neut # (Auto) 4.44 Lymph # (Auto) 1.14 L [place] # (Auto) 0.68 Eos # (Auto) 0.29 Baso # (Auto) 0.03 Immature Gran # (Auto) 0.04 H Sodium 139 Potassium 3.9 Chloride 108 H Carbon Dioxide 27 Anion Gap 4 BUN 8 Creatinine 0.96 Est Cr Clr Drug Dosing 66.0 Est GFR ( Amer) 82.6 Est GFR (Non-Af Amer) 71.3 BUN/Creatinine Ratio 8.3 L Glucose 146 H POC Glucose 148 H Calcium 9.0 03/14/22 17:47 WBC RBC Hgb Hct MCV MCH MCHC RDW Std Deviation RDW Coeff of Eben Plt Count MPV Immature Gran % (Auto) Neut % (Auto) Lymph % (Auto) [place] % (Auto) Eos % (Auto) Baso % (Auto) Neut # (Auto) Lymph # (Auto) [place] # (Auto) Eos # (Auto) Baso # (Auto) Immature Gran # (Auto) Sodium Potassium Chloride Carbon Dioxide Anion Gap BUN Creatinine Est Cr Clr Drug Dosing Est GFR ( Amer) Est GFR (Non-Af Amer) BUN/Creatinine Ratio Glucose POC Glucose 152 H Calcium PG Care Time/CCT Total # of Minutes Spent Total Time Spent with Patient: Total time spent is greater than 50% in coordination of care (as documented) at patient's floor/unit and/or counseling patient: Coding Level of Care Code 44763 Subseq Hosp Care Lvl 3 Diagnoses Dysphagia R13.10 Stroke I63.9 Epistaxis R04.0 Status post myringotomy with tube placement of both ears Z96.22 S/P nasal polypectomy Z98.890 Atrial fibrillation I48.21 Atrial fibrillation type: permanent Coronary artery disease I25.10 Stage III chronic kidney disease N18.3 DM type 2 (diabetes mellitus, type 2) E11.9; Z79.4 Diabetes mellitus complication status: without complication Diabetes mellitus fdc insulin 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 HTN (hypertension) I10 Hypothyroid E03.9 Hypothyroidism type: acquired Hyperlipidemia E78.2 Hyperlipidemia type: mixed hyperlipidemia GERD (gastroesophageal reflux disease) K21.9 Esophagitis presence: esophagitis presence not specified Memory impairment R41.3 BPH (benign prostatic hyperplasia) N40.0 Thrombocytopenia D69.6 Depression F32.9 B12 deficiency E53.8 Fever R50.9 Kidney stones N20.0 (1) DM type 2 (diabetes mellitus, type 2) Diabetes mellitus complication status: without complication 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 mellitus truck 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 insulin use: with fdc use Qualified Code(s): E11.9 - Type 2 diabetes mellitus without complications; Z79.4 - long-term (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
[2022-03-15] MEDS: INSULIN ASPART PER UNIT SC SCH ×5 (00:05→23:36)
[2022-03-15] MEDS: METOPROLOL TARTRATE 1 MG/ML VIAL IV SCH ×5 (00:05→23:37)
[2022-03-15] MEDS: POTASSIUM CHLORIDE 20 MEQ in D5W AND LACTATED RINGERS 1,000 ML IV SCH ×2 (00:05→12:23)
[2022-03-15] MEDS: hydrALAZINE HCL 20 MG/ML VIAL IV PRN (03:03)
[2022-03-15] MEDS: LEVOTHYROXINE SODIUM 50 MCG TABLET NG SCH (06:03)
[2022-03-15 07:07] LABS: BUN Creatinine Ratio 9.5 (10-20); Calcium 9.1 mg/dl (8.5-10.1); Creatinine Clr Calc Pharmacy 66.9 ml/min; Est GFR (African American) 83.7 ml/min; Est GFR (Non-African American) 72.2 ml/min; Magnesium 1.9 mg/dl (1.7-2.4); Potassium 3.7 mmol/L (3.5-5.1)
[2022-03-15] MEDS: SODIUM CHLORIDE 0.65% NA SOLN 45 ML (OCEAN) SCH ×4 (07:09→14:43)
[2022-03-15] MEDS: DOCUSATE SODIUM SYRUP 100 MG/10 ML UDC NG SCH ×2 (07:10→22:16)
[2022-03-15] MEDS: CLOPIDOGREL BISULFATE 75 MG TAB PEG SCH (07:10)
[2022-03-15] MEDS: amLODIPine BESYLATE 5 MG TAB PO SCH (07:10)
[2022-03-15] MEDS: CARBIDOPA/LEVODOPA 25/100MG TAB NG SCH ×3 (07:10→22:16)
[2022-03-15] MEDS: CYANOCOBALAMIN (B-12) 500 MCG TABLET NG SCH (07:10)
[2022-03-15] MEDS: LANSOPRAZOLE 15 MG SOLTAB NG SCH (07:10)
[2022-03-15] MEDS: lisinopril 40 MG TAB PO SCH (07:11)
[2022-03-15] MEDS: OFLOXACIN 0.3% 75 DROPS/5 ML BTL OTB SCH (07:11)
[2022-03-15] MEDS: METOPROLOL TARTRATE 25 MG TAB OG SCH ×2 (07:11→22:16)
[2022-03-15] MEDS: POLYETHYLENE (MIRALAX) 17 GM PACK NG SCH (07:11)
[2022-03-15] MEDS: PREGABALIN 100 MG CAP PO SCH ×3 (07:12→22:16)
[2022-03-15] MEDS: THIAMINE HCL 100 MG in SYRINGE 9 ML IV SCH (07:12)
[2022-03-15] MEDS: cefTRIAXone SODIUM 2,000 MG in DEXTROSE 5% 50 ML IV SCH (07:31)
[2022-03-15] MEDS: LANTUS PER UNIT CHARGE SQ SCH ×2 (08:46→22:24)
--- NOTE | 2022-03-15 09:00 | History & Physical Bridge Note ---
Date of Service March 15, 2022 History & Physical Bridge Note I have examined the patient, reviewed the History & Physical and in the interval since the performance of the History & Physical I have noted the following changes of clinical significance: Patient has ongoing dysphagia, but reportedly an overall improvement since recent stroke. He has been on Plavix for the past 2 days. He has been NPO since prior to midnight. He has expressed that he wishes to have a PEG tube after discussion of risks/complications particularly over the age of 75. It has been made clear that despite PEG tube patient may continue to aspirate on his own saliva/secretions. Keep NPO. Will attempt endoscopic PEG placement today. Agree with SARA Blackman as above Abd: Soft, NT, ND, +BS Continue current therapy and supportive care Proceed with PEG Tube placement today
--- NOTE | 2022-03-15 09:17 | Anesthesiology Consultation ---
Date of Service March 15, 2022 Assessment & Plan (1) Encounter for pre-operative examination: Chart Review Chart Review: Acceptable Risk for Surgery (necessary procedure) and Patient NOT seen in Pre Admission Testing Consults Requested none History Surgery Operation Date: 03/08/22 09:55 Proposed Procedures p Endopscopic Sinus Debridement, Placement NG Tube Nasal using Endoscope - Britt Ge MD Operation Date: 03/15/22 16:30 Proposed Procedures p Esophagogastroduodenoscopy with Gastric Tube Placement Dr Meng Narayan Case, DO Height/Weight Height: 5 ft 11 in Weight: 99 kg Allergies Allergy/AdvReac Type Severity Reaction Status Date / Time hydrocodone AdvReac Mild Dizziness, Verified 03/01/22 05:55 [From Panlor Nausea (hydrocodone-acetamin)] oxycodone AdvReac Mild N/V Verified 03/01/22 05:55 tramadol AdvReac Mild Confusion Verified 03/01/22 05:55 Medications Home Medications Medication Instructions Recorded Confirmed Last Taken apixaban 2.5 mg tablet (Eliquis) 2.5 mg PO BID #180 tabs 08/21/20 03/02/22 02/27/22 08:00 atorvastatin 80 mg tablet 80 mg PO HS #90 tabs 08/21/20 03/02/22 02/27/22 20:30 finasteride 5 mg tablet 5 mg PO QAM #90 tabs 08/21/20 03/02/22 02/28/22 08:00 levothyroxine 50 mcg tablet 50 mcg PO QAM #90 tabs 08/21/20 03/02/22 02/28/22 08:00 triamcinolone acetonide 0.1 % 1 applic topical BID #30 grams 10/02/20 03/01/22 05/04/21 08:00 topical cream glycerin 2 drp ophthalmic (eye) BID 10/17/20 03/02/22 02/28/22 08:00 blood sugar diagnostic (OneTouch #100 ea 10/18/20 02/22/22 Unknown Ultra Blue Test Strip) lancets 33 gauge (OneTouch Delica #100 ea 10/18/20 02/22/22 Unknown Plus Lancet) blood-glucose meter (OneTouch #1 ea 10/31/20 02/22/22 Unknown Ultra2 Meter) methylcellulose (with sugar) 2 2 g PO DAILY #454 grams 01/19/21 03/02/22 02/28/22 08:00 gram/19 gram oral powder (Fiber Therapy (methylcellulose-sugar)) pen needle, diabetic 32 gauge x #100 ea 02/15/21 02/22/22 Unknown 5/32" (BD Ultra-Fine Mary Carmen Pen Needle) famotidine 20 mg tablet 20 mg PO BID #60 tabs 03/28/21 03/02/22 02/28/22 08:00 docusate sodium 100 mg capsule 100 mg PO BID #60 caps 04/03/21 03/02/22 02/28/22 08:00 hydrocortisone 2.5 % topical cream 1 applic [place] DAILY PRN hemorrhoids 04/09/21 03/02/22 Unknown with perineal applicator #30 grams pregabalin 100 mg capsule 100 mg PO TID #90 caps 04/19/21 03/02/22 02/28/22 08:00 diclofenac sodium 1 % topical gel 4 g topical QID PRN Pain 05/04/21 03/02/22 U nknown carbidopa 25 mg-levodopa 100 mg 0.5 tab PO TID #45 tabs 05/21/21 03/02/22 03/01/22 04:30 tablet (Sinemet) magnesium oxide 400 mg PO BID #60 tabs 06/04/21 03/02/22 02/28/22 08:00 clopidogrel 75 mg tablet 75 mg PO QAM #90 tabs 06/11/21 03/02/22 02/28/22 08:00 acetaminophen 325 mg tablet 650 mg PO QID PRN Pain 02/04/22 03/02/22 Unknown cyanocobalamin (vitamin B-12) 1,000 mcg PO DAILY 02/04/22 03/02/22 02/28/22 08:00 1,000 mcg tablet duloxetine 60 mg capsule,delayed 30 mg PO QAM 02/04/22 03/02/22 02/28/22 08:00 release furosemide 20 mg tablet 40 mg PO 3XWK 02/04/22 03/02/22 02/27/22 08:00 insulin NPH-regular 70-30 U-100 30 unit subcut BID 02/04/22 03/02/22 02/28/22 08:00 insulin 100 unit/mL subcutaneous pen (Novolin 70-30 FlexPen U-100 Insulin) insulin aspart U-100 100 unit/mL 1 sliding scale dose subcut 02/04/22 03/02/22 Unknown subcutaneous solution (Novolog USEASDIRECTD U-100 Insulin aspart) lisinopril 40 mg tablet 40 mg PO DAILY 02/04/22 03/02/22 02/28/22 08:00 magnesium hydroxide 800 mg/5 mL 7.75 mg PO DIRECTED PRN 02/04/22 03/02/22 Unknown oral suspension Constipation ondansetron HCl 4 mg tablet 4 mg PO Q8H PRN Nausea 02/04/22 03/02/22 Unknown pantoprazole 40 mg tablet,delayed 40 mg PO DAILY 02/04/22 03/02/22 02/28/22 08:00 release semaglutide 0.25 mg or 0.5 mg (2 0.5 mg subcut WK 02/04/22 03/02/22 02/26/22 08:00 mg/1.5 mL) subcutaneous pen injector (Ozempic) sodium phosphates 19 gram-7 118 ml [place] DAILY PRN Constipation 02/04/22 03/02/22 Unknown gram/118 mL enema (Enema) ofloxacin 0.3 % ear drops 5 drp otic (ear) BID #5 mL 03/01/22 03/02/22 Unknown tramadol 50 mg tablet 50 mg PO Q8H PRN Pain #20 tabs 03/01/22 03/02/22 Unknown Active Medications Generic Name Dose Route Start Last Admin Trade Name Freq PRN Reason Stop Dose Admin Amlodipine Besylate 5 mg 03/09/22 16:15 03/15/22 07:10 Amlodipine Besylate 5 Mg Tab PO 04/08/22 16:14 Not Given QAM STEPH Atorvastatin Calcium 80 mg 03/08/22 21:00 03/14/22 20:10 Atorvastatin 40 Mg Tab NG 04/07/22 20:59 Not Given HS STEPH Carbidopa/Levodopa 0.5 tab 03/08/22 21:00 03/15/22 07:10 Carbidopa/Levodopa 25/100mg Tab NG 04/07/22 20:59 Not Given TID STEPH Clopidogrel Bisulfate 75 mg 03/09/22 09:00 03/15/22 07:10 Clopidogrel Bisulfate 75 Mg Tab PEG 04/08/22 08:59 Not Given QAM STEPH Cyanocobalamin 1,000 mcg 03/09/22 09:00 03/15/22 07:10 Cyanocobalamin (B-12) 500 Mcg Tablet NG 04/08/22 08:59 Not Given DAILY STEPH Docusate Sodium 100 mg 03/08/22 21:00 03/15/22 07:10 Docusate Sodium Syrup 100 Mg/10 Ml Udc NG 04/07/22 20:59 Not Given BID STEPH Enteral Nutritional Formula 1,000 ml 03/08/22 17:15 03/11/22 18:17 Fibersource Hn 1.2 Raul 1000 Ml Bag NG 04/07/22 17:14 10 ml UD STEPH Administration Protocol Hydralazine HCl 10 mg 03/10/22 08:08 03/15/22 03:03 Hydralazine Hcl 20 Mg/Ml Vial IV 04/03/22 21:59 10 mg Q8 PRN Administration SBP>180 Heparin Sodium/Dextrose 25,000 units in 500 mls @ 23 mls/hr 03/08/22 17:15 03/13/22 22:56 Heparin Sodium/Dextrose IV 04/07/22 17:14 Not Given .[id number] [facility] Protocol 1,150 UNITS/HR Thiamine HCl 100 mg/ Syringe 10 mls @ 2 mls/min 03/12/22 09:00 03/15/22 07:12 IV 04/11/22 08:59 Not Given QAM STEPH Potassium Chloride 20 meq/ 1,010 mls @ 70 mls/hr 03/12/22 11:30 03/15/22 00:05 Dextrose/Lactated Ringer's IV 04/11/22 11:29 70 mls/hr .[id number] STEPH Administration Ceftriaxone Sodium 2,000 mg/ 70 mls @ 100 mls/hr 03/13/22 11:00 03/15/22 08:15 Dextrose IV 03/23/22 10:59 Infused DAILY [facility] Infusion Protocol Insulin Aspart 0 units 03/04/22 06:00 03/15/22 05:14 Insulin Aspart Per Unit SC 04/03/22 05:59 Not Given Q6 [facility] Protocol Insulin Glargine 10 units 03/12/22 21:00 03/14/22 21:09 Lantus Per Unit Charge SQ 04/11/22 20:59 10 units HS STEPH Administration Insulin Glargine 10 units 03/13/22 10:45 03/15/22 08:46 Lantus Per Unit Charge SQ 04/12/22 10:44 10 units QAM STEPH Administration Lansoprazole 15 mg 03/09/22 09:00 03/15/22 07:10 Lansoprazole 15 Mg Soltab NG 04/08/22 08:59 Not Given QAM STEPH Levothyroxine Sodium 50 mcg 03/09/22 06:30 03/15/22 06:03 Levothyroxine Sodium 50 Mcg Tablet NG 04/08/22 06:29 Not Given DAILYBB STEPH Lisinopril 40 mg 03/09/22 09:00 03/15/22 07:11 Lisinopril 40 Mg Tab PO 04/08/22 08:59 Not Given QAM STEPH Metoprolol Tartrate 25 mg 03/13/22 21:00 03/15/22 07:11 Metoprolol Tartrate 25 Mg Tab OG 04/12/22 20:59 Not Given BID STEPH Metoprolol Tartrate 5 mg 03/14/22 16:15 03/15/22 06:03 Metoprolol Tartrate 1 Mg/Ml Vial IV 04/13/22 16:14 5 mg Q6 STEPH Administration Ofloxacin 4 drops 03/05/22 13:25 03/15/22 07:11 Ofloxacin 0.3% 75 Drops/5 Ml Btl OTB 03/15/22 13:24 4 drops BID STEPH Administration Polyethylene Glycol 17 gm 03/09/22 09:00 03/15/22 07:11 Polyethylene (Miralax) 17 Gm Pack NG 04/08/22 08:59 Not Given DAILY STEPH Pregabalin 100 mg 03/02/22 14:40 03/15/22 07:12 Pregabalin 100 Mg Cap PO 04/01/22 14:39 Not Given TID STEPH Sodium Chloride 2 sprays 03/09/22 16:00 03/15/22 08:58 Sodium Chloride 0.65% Na Soln 45 Ml ([place]) NA 04/08/22 15:59 2 sprays [id number] STEPH Administration Sterile Water 100 ml 03/08/22 18:00 03/13/22 15:07 Tube Feeding Water Flush NG 04/07/22 17:59 Not Given Q4H STEPH Tamsulosin HCl 0.4 mg 03/08/22 21:00 03/14/22 20:11 Tamsulosin Hcl 0.4 Mg Cap NG 04/07/22 20:59 Not Given HS STEPH NPO Date Last Intake of Fluids: 02/28/22 Time Last Intake of Fluids: 20:00 Date Last Intake of Solids: 02/28/22 Time Last Intake of Solids: 18:00 Past Medical History Medical History Abnormal tympanic membrane R/L Atrial fibrillation Paroxysmal BPH (benign prostatic hyperplasia) CKD (chronic kidney disease) Coronary artery disease s/p CABG (2010) Depression DM type 2 (diabetes mellitus, type 2) GERD (gastroesophageal reflux disease) Hearing deficit HTN (hypertension) Hyperlipidemia Hypothyroid Kidney stones LVH (left ventricular hypertrophy) Focal thickening of the basal septum with no evidence of LVOT obstruction, Mild asymmetric LVH per 12/2018 echo Major depressive disorder Memory impairment Myocardial Infarction 2004 Follows with [facility] cardiology/Dr. 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 Yates Transient hypotension Upper respiratory infection Vocal cord paralysis Past Family History Family History Father Diabetes Coronary heart disease Mother Diabetes Coronary heart disease Myocardial infarction Sister Breast cancer Brother Coronary heart disease Son Family history of diabetes mellitus Family/Other Family history of diabetes mellitus grandson Other No family history of adverse response to anesthesia Denies family history of Ovarian cancer Prostate cancer Colorectal cancer Past Surgical History Surgical History History of bilateral cataract extraction History of esophagogastroduodenoscopy (EGD) History of kidney surgery History of lithotripsy x2 History of lumbar laminectomy History of tooth extraction [place] Social History Smoking Status: Never smoker Hx Alcohol Use: No Hx Substance Use: No substance use type: does not use Physical Exam Vital Signs Last Vital Signs Temp 35.9 C L 03/15/22 07:06 Pulse 62 03/15/22 07:06 Resp 18 03/15/22 07:06 BP 161/98 H 03/15/22 07:06 Pulse Ox 95 03/15/22 07:06 O2 Del Method 03/15/22 07:06 O2 Flow Rate 2 03/15/22 07:06 Testing Laboratory Results 03/14/22 07:04 03/15/22 05:50 PT 11.8 Seconds (9.0-12.0) 03/08/22 18:00 INR 1.1 (0.9-1.1) 03/08/22 18:00 APTT 61.9 Seconds (21.0-31.0) H* 03/13/22 06:03 Hemoglobin A1c 6.7 % (4.5-5.6) H 03/03/22 06:38 Urine Color Yellow 03/12/22 15:25 Urine Appearance Clear (Clear) 03/12/22 15:25 Urine pH 7.5 (4.5-7.5) 03/12/22 15:25 Ur Specific [place] 1.006 (1.000-1.030) 03/12/22 15:25 Urine Protein Negative (Negative) 03/12/22 15:25 Urine Glucose (UA) Negative (Negative) 03/12/22 15:25 Urine Ketones Negative (Negative) 03/12/22 15:25 Urine Nitrite Negative (Negative) 03/12/22 15:25 Ur Leukocyte Esterase Trace (Negative) H 03/12/22 15:25 Urine WBC (Auto) 1-5 /hpf (0-5) 03/12/22 15:25 Urine RBC (Auto) 10-30 /hpf (0-4) H 03/12/22 15:25 U Hyaline Cast (Auto) 0 /lpf (0-5) 03/12/22 15:25 U Epithel Cells (Auto) 0-5 /lpf (0-5) 03/12/22 15:25 Urine Bacteria (Auto) Negative (Negative) 03/12/22 15:25 03/12/22 15:25 Urine Culture - Final Urine,Indwelling Cath No growth - less than 1,000 colonies/mL. 03/15/22 03/14/22 05:03 23:57 POC Glucose 133 H 128 H Electrocardiogram Date: 03/08/22 Atrial fibrillation Abnormal ECG When compared with ECG of 10-AUG-2021 11:43, No significant change was found Confirmed by Romie Becerra ([id number]) on 03/03/2022 9:07:43 AM Chest X-Ray Date: 03/02/22 IMPRESSION: 1. Cardiomegaly with mild pulmonary vascular congestion. 2. No pacemaker is identified.
[2022-03-15] MEDS ORDERED: PROPOFOL IV EMULSION 10 MG/ML 20 ML VIAL IV ONE (09:19)
[2022-03-15] MEDS ORDERED: LIDOCAINE 2% MPF LOCAL 5 ML VIAL INFIL ONE (09:19)
--- NOTE | 2022-03-15 10:23 | GI REPORT ---
Patient Name: Sahil Martinez Procedure Date: 03/15/2022 9:48 AM Date of : 1935 Admit Type: Inpatient Age: 86 Gender: Male Attending MD: Candelario Fan DO Procedure: Upper GI endoscopy Providers: Candelario Fan DO Referring MD: Demetrius Kat Indications: Place PEG because patient is unable to eat due to stroke (CVA) Medicines: Monitored Anesthesia Care Complications: No immediate complications. Estimated Blood Loss: Estimated blood loss: none. Procedure: Pre-Anesthesia Assessment: - Prior to the procedure, a History and Physical was performed, and patient medications and allergies were reviewed. The patient's tolerance of previous anesthesia was also reviewed. The risks and benefits of the procedure and the sedation options and risks were discussed with the patient. All questions were answered, and informed consent was obtained. Prior Anticoagulants: The patient last took Eliquis (apixaban) 12 days and Plavix (clopidogrel) 12 days prior to the procedure. ASA Grade Assessment: IV - A patient with severe systemic disease that is a constant threat to life. After reviewing the risks and benefits, the patient was deemed in satisfactory condition to undergo the procedure. After obtaining informed consent, the endoscope was passed under direct vision. Throughout the procedure, the patient's blood pressure, pulse, and oxygen saturations were monitored continuously. The Endoscope was introduced through the mouth, and advanced to the second part of duodenum. The upper GI endoscopy was accomplished without difficulty. The patient tolerated the procedure well. Findings: A moderate Schatzki ring was found in the distal esophagus. A TTS dilator was passed through the scope. Dilation with an 18-19-20 mm balloon dilator was performed to 18 mm. The dilation site was examined and showed mild improvement in luminal narrowing. A small hiatal hernia was present. No endoscopic ability to place PEG tube as no 1:1 rebound on external abdominal wall recognized. The examined duodenum was normal. Impression: - Moderate Schatzki ring. Dilated. - Small hiatal hernia. - Normal examined duodenum. - No specimens collected. Recommendation: - Return patient to hospital shafer for ongoing care. - Refer to a surgeon today, case discussed with SARA Barr. - NPO. - Continue present medications. Candelario Fan DO 03/15/2022 10:22:41 AM This report has been signed electronically. Note Initiated On: 03/15/2022 9:48 AM Number of Addenda: 0 I attest to the content of the Intraoperative Record and orders documented therein, exceptions below {[id number]}
--- NOTE | 2022-03-15 10:34 | Anesthesiology Progress Note ---
Date of Service March 15, 2022 Anesthesia Post Procedure Vital Signs Vital Signs: Temp Pulse Pulse Pulse Resp BP BP 03/15/22 10:23 79 16 110/66 03/15/22 09:41 36.4 C L 66 18 169/77 H 03/15/22 07:06 35.9 C L 62 18 161/98 H 03/15/22 06:03 69 167/97 H 03/15/22 05:59 69 167/97 H 03/15/22 03:49 149/85 H 03/15/22 02:56 36.1 C L 19 222/99 H 03/15/22 00:05 63 185/111 H 03/14/22 23:09 36.6 C 63 20 185/111 H 03/14/22 23:08 68 03/14/22 23:08 03/14/22 19:34 36.5 C 65 18 178/90 H 03/14/22 17:36 71 169/79 H 03/14/22 14:17 74 03/14/22 15:14 36.6 C 73 19 175/95 H 03/14/22 11:25 36.5 C 67 16 159/86 H Pulse Ox O2 Del Method O2 Flow Rate 03/15/22 10:23 99 Nasal Cannula 2 03/15/22 09:41 95 Room Air 03/15/22 07:06 95 Oxymask 2 03/15/22 06:03 03/15/22 05:59 03/15/22 03:49 03/15/22 02:56 97 Oxymask 2 03/15/22 00:05 03/14/22 23:09 98 Room Air 03/14/22 23:08 03/14/22 23:08 Room Air 03/14/22 19:34 97 Room Air 03/14/22 17:36 03/14/22 14:17 03/14/22 15:14 97 Oxymask 3 03/14/22 11:25 95 Room Air Transfer of Care Handoff Completed per policy Notes Mental Status: alert / awake / arousable Patient Amnestic to Procedure: Yes Nausea / Vomiting: adequately controlled Pain: adequately controlled Airway Patency, RR, SpO2: stable & adequate BP & HR: stable & adequate Hydration State: stable & adequate Anesthetic Complications: no major complications apparent and Pt Satisfied with anesthetic care Notes: Dr. Case was unable to place the PEG tube. The patient is awake and stable at his baseline.
--- NOTE | 2022-03-15 11:25 | Surgery Consultation ---
Date of Consultation March 15, 2022 Assessment & Plan (1) Acute CVA (cerebrovascular accident): This is an 86y M with a PMH of afib on eliquis, hearing loss, DM, HTN, BPH, HLD, who was admitted to the [facility] on 03/02 due to concern for stroke like symptoms. Patient was off of his blood thinner for an ENT procedure the day prior. MRI confirmed a 12 mm acute infarct within the left basal ganglia/posterior limb of the left internal capsule. Patient has been evaluated by speech therapy and failed video swallow x2, most recently on 03/14. He did have a corsafe tube in for feedings, unfortunately this was self d/cd on 03/13. GI was following for consideration of PEG placement that was attempted on 03/15, however it was unsuccessful. An EGD was performed and he had dilation of his Schatzki ring. Today we have been consulted for consideration of a surgical gastrostomy tube for this patient. - Discussed with son over the phone who wishes to proceed with g-tube placement and voices that his father would want this. On interview with hospitalists yesterday patient would like to move forward with feeding G tube. - Would continue to hold Plavix for now. Okay from our standpoint to resume heparin gtt and we can discuss timing of holding this prior to procedure - in the light of patient's recent stroke we will reach out to anesthesia to see how they feel if he would be reasonable to undergo anesthesia for surgical procedure - We will tentatively place the patient on the schedule for this upcoming Friday with Dr. Webb for laparoscopic assisted G tube with EGD scope assistance. We will follow up with patient again on Friday for confirmation given patient still wishes to proceed and deemed okay by hospital and anesthesia (2) Feeding difficulties: History of Present Illness Attending Physician: Demetrius Kat History of Present Illness This is an 86y M with a PMH of afib on eliquis, hearing loss, DM, HTN, BPH, HLD, who was admitted to the [facility] on 03/02 due to concern for stroke like symptoms. Patient was off of his blood thinner for an ENT procedure the day prior. MRI confirmed a 12 mm acute infarct within the left basal ganglia/posterior limb of the left internal capsule. Patient has been evaluated by speech therapy and failed video swallow x2, most recently on 03/14. He did have a corsafe tube in for feedings, unfortunately this was self d/cd on 03/13. GI was following for consideration of PEG placement that was attempted on 03/15, however it was unsuccessful. An EGD was performed and he had dilation of his Schatzki ring. Today we have been consulted for consideration of a surgical gastrostomy tube for this patient. Of note patient is hard of hearing and our interview and ROS was limited. Allergies Allergy/AdvReac Type Severity Reaction Status Date / Time hydrocodone AdvReac Mild Dizziness, Verified 03/01/22 05:55 [From Panlor Nausea (hydrocodone-acetamin)] oxycodone AdvReac Mild N/V Verified 03/01/22 05:55 tramadol AdvReac Mild Confusion Verified 03/01/22 05:55 Home Medications Medication Instructions Recorded Confirmed Type apixaban 2.5 mg tablet (Eliquis) 2.5 mg PO BID #180 tabs 08/21/20 03/02/22 Rx atorvastatin 80 mg tablet 80 mg PO HS #90 tabs 08/21/20 03/02/22 Rx finasteride 5 mg tablet 5 mg PO QAM #90 tabs 08/21/20 03/02/22 Rx levothyroxine 50 mcg tablet 50 mcg PO QAM #90 tabs 08/21/20 03/02/22 Rx triamcinolone acetonide 0.1 % 1 applic topical BID #30 grams 10/02/20 03/01/22 Rx topical cream glycerin 2 drp ophthalmic (eye) BID 10/17/20 03/02/22 History blood sugar diagnostic (OneTouch #100 ea 10/18/20 02/22/22 Rx Ultra Blue Test Strip) lancets 33 gauge (OneTouch Delica #100 ea 10/18/20 02/22/22 Rx Plus Lancet) blood-glucose meter (OneTouch #1 ea 10/31/20 02/22/22 Rx Ultra2 Meter) methylcellulose (with sugar) 2 2 g PO DAILY #454 grams 01/19/21 03/02/22 Rx gram/19 gram oral powder (Fiber Therapy (methylcellulose-sugar)) pen needle, diabetic 32 gauge x #100 ea 02/15/21 02/22/22 Rx 5/32" (BD Ultra-Fine Mary Carmen Pen Needle) famotidine 20 mg tablet 20 mg PO BID #60 tabs 03/28/21 03/02/22 Rx docusate sodium 100 mg capsule 100 mg PO BID #60 caps 04/03/21 03/02/22 Rx hydrocortisone 2.5 % topical cream 1 applic OR DAILY PRN hemorrhoids 04/09/21 03/02/22 Rx with perineal applicator #30 grams pregabalin 100 mg capsule 100 mg PO TID #90 caps 04/19/21 03/02/22 Rx diclofenac sodium 1 % topical gel 4 g topical QID PRN Pain 05/04/21 03/02/22 History carbidopa 25 mg-levodopa 100 mg 0.5 tab PO TID #45 tabs 05/21/21 03/02/22 Rx tablet (Sinemet) magnesium oxide 400 mg PO BID #60 tabs 06/04/21 03/02/22 Rx clopidogrel 75 mg tablet 75 mg PO QAM #90 tabs 06/11/21 03/02/22 Rx acetaminophen 325 mg tablet 650 mg PO QID PRN Pain 02/04/22 03/02/22 History cyanocobalamin (vitamin B-12) 1,000 mcg PO DAILY 02/04/22 03/02/22 History 1,000 mcg tablet duloxetine 60 mg capsule,delayed 30 mg PO QAM 02/04/22 03/02/22 History release furosemide 20 mg tablet 40 mg PO 3XWK 02/04/22 03/02/22 History insulin NPH-regular 70-30 U-100 30 unit subcut BID 02/04/22 03/02/22 History insulin 100 unit/mL subcutaneous pen (Novolin 70-30 FlexPen U-100 Insulin) insulin aspart U-100 100 unit/mL 1 sliding scale dose subcut 02/04/22 03/02/22 History subcutaneous solution (Novolog USEASDIRECTD U-100 Insulin aspart) lisinopril 40 mg tablet 40 mg PO DAILY 02/04/22 03/02/22 History magnesium hydroxide 800 mg/5 mL 7.75 mg PO DIRECTED PRN 02/04/22 03/02/22 History oral suspension Constipation ondansetron HCl 4 mg tablet 4 mg PO Q8H PRN Nausea 02/04/22 03/02/22 History pantoprazole 40 mg tablet,delayed 40 mg PO DAILY 02/04/22 03/02/22 History release semaglutide 0.25 mg or 0.5 mg (2 0.5 mg subcut WK 02/04/22 03/02/22 History mg/1.5 mL) subcutaneous pen injector (Ozempic) sodium phosphates 19 gram-7 118 ml OR DAILY PRN Constipation 02/04/22 03/02/22 History gram/118 mL enema (Enema) ofloxacin 0.3 % ear drops 5 drp otic (ear) BID #5 mL 03/01/22 03/02/22 Rx tramadol 50 mg tablet 50 mg PO Q8H PRN Pain #20 tabs 03/01/22 03/02/22 Rx Patient History Medical History Abnormal tympanic membrane R/L Atrial fibrillation Paroxysmal BPH (benign prostatic hyperplasia) CKD (chronic kidney disease) Coronary artery disease s/p CABG (2010) Depression DM type 2 (diabetes mellitus, type 2) GERD (gastroesophageal reflux disease) Hearing deficit HTN (hypertension) Hyperlipidemia Hypothyroid Kidney stones LVH (left ventricular hypertrophy) Focal thickening of the basal septum with no evidence of LVOT obstruction, Mild asymmetric LVH per 12/2018 echo Major depressive disorder Memory impairment Myocardial Infarction 2004 Follows with [facility] cardiology/Dr. 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 Yates Transient hypotension Upper respiratory infection Vocal cord paralysis Surgical History History of bilateral cataract extraction History of esophagogastroduodenoscopy (EGD) History of kidney surgery History of lithotripsy x2 History of lumbar laminectomy History of tooth extraction [place] Family History Father Diabetes Coronary heart disease Mother Diabetes Coronary heart disease Myocardial infarction Sister Breast cancer Brother Coronary heart disease Son Family history of diabetes mellitus Family/Other Family history of diabetes mellitus grandson Other No family history of adverse response to anesthesia Denies family history of Ovarian cancer Prostate cancer Colorectal cancer Social History Smoking Status: Never smoker Second Hand Exposure: No; Hx Alcohol Use: No Hx Substance Use: No Preferred Language: Jordanian Communication Ability: Impaired Visual Impairment: No Limitations 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 Head Required: No Beliefs That Will Affect Care: None marital status: Current Living Situation: Shelter Current Living Situation Comment: [facility] current occupational status: retired current occupation: used to work in [employer] How many Children do You have: 1 Feels Safe at Home: Yes Childhood Exposure to Second-Hand Smoke: Yes caffeine: Yes Dental Care, Regularly: No Physical Activity Frequency: Does not Exercise Seatbelt Use: always Sunscreen Use: No Assistive Devices: Walker and Wheelchair Review of Systems Constitutional: no fever and no chills Respiratory: no dyspnea Gastrointestinal: no abdominal pain Physical Exam Physical Exam: awake, lying in bed. difficult to communicate with verbally due to hearing issues Respiratory: normal respiratory effort Gastrointestinal (Abdomen): Inspection/Auscultation: + abdominal surgical scar; abdomen not distended Percussion/Palpation: abdomen soft; abdomen nontender Results & Data ([facility]) Vital Signs (Past 12 Hours) Vital Signs Temp Pulse Pulse Pulse Resp BP BP 03/15/22 10:56 72 18 124/86 03/15/22 10:37 83 18 110/66 03/15/22 10:23 79 16 110/66 03/15/22 09:41 36.4 C L 66 18 169/77 H 03/15/22 07:06 35.9 C L 62 18 161/98 H 03/15/22 06:03 69 167/97 H 03/15/22 05:59 69 167/97 H 03/15/22 03:49 149/85 H 03/15/22 02:56 36.1 C L 19 222/99 H 03/15/22 00:05 63 185/111 H Pulse Ox O2 Del Method O2 Flow Rate 03/15/22 10:56 94 Room Air 03/15/22 10:37 99 Nasal Cannula 2 03/15/22 10:23 99 Nasal Cannula 2 03/15/22 09:41 95 Room Air 03/15/22 07:06 95 Oxymask 2 03/15/22 06:03 03/15/22 05:59 03/15/22 03:49 03/15/22 02:56 97 Oxymask 2 08/19/22 00:05 PG Care Time/CCT Total # of Minutes Spent Total Time Spent with Patient: Total time spent is greater than 50% in coordination of care (as documented) at patient's floor/unit and/or counseling patient: Coding Level of Care Code 08712 Initial Inpt Care Lvl 1 Diagnoses Acute CVA (cerebrovascular accident) I63.9 Feeding difficulties R63.30
[2022-03-15] MEDS ORDERED: Heparin IV Adult Wt-Based Standard *NO* Bolus Protocol IV SCH (19:49)
--- NOTE | 2022-03-15 21:19 | Hospitalist Progress Note ---
Date of Service March 15, 2022 Assessment & Plan (1) Dysphagia: Plan: known issue at baseline even prior to this hospital stay multiple etiologies - prior CVAs, new/current CVA, esophageal stenosis (required dilation 07/2021), etc failed his bedside swallow and his video swallow on 03/05/22 NPO since then repeat video swallow 03/14 - aspirated most consistencies; did slightly ok with pudding thick but speech stated he had cyanotic spell again during the study speech feels safest option is strict NPO with PEG placement Dr Fan from [facility] [facility] performed EGD today; anatomy not suitable for PEG placement thus one not placed Gen surgery consulted for g-tube placement - this will occur early this coming week can resume heparin over the weekend (2) Stroke: Plan: Left basal ganglia/posterior limb of internal capsule. Thrombotic (off plavix recently) vs embolic etiology both possible (known aalmaz, was off Eliquis for his recent sinus surgery). Appreciate neurology consult earlier in the stay. Continue PT, OT, speech therapy. Right arm weakness continues to improve. Speech has improved as well. Failed video swallow on 03/05/22. Failed video swallow again 03/14/22. NPO since. s/p coresafe NG tube placement 03/11 - unfortunately he self-removed 03/13. will leave Coresafe out due to technical difficulties we had with it last week. see #1 re: attempts at PEG placement. Resume heparin drip. Holding plavix. (3) Epistaxis: Plan: improved none overnight observe afrin protocol prn for recurrent nosebleed resume heparin drip cautiously today (4) Status post myringotomy with tube placement of both ears: Plan: 03/01/22 - s/p Bilateral Myringotomy and Tube Insertion, Image guided bilateral endoscopic sinus surgery with bilateral frontal, total ethmoid, and maxillary sinus antrostomies Dr Ge surgery performed due to chronic sinus issues/sinusitis, polyps, chronic OME b/l, etc. now on ofloxacin drops b/l ears twice daily as recommended by Dr Ge recent bloody otorrhea improved started rocephin due to concern of sinusitis with low-grade fevers, severe congestion, etc. -- day #3 of such plan 7 days cxr w/o definitive pneumonia (5) S/P nasal polypectomy: Plan: 03/01/[address] Ge 03/08/22 - Endoscopic Sinus Debridement - also by Dr Ge (6) Atrial fibrillation: Plan: permanent / stable resume Heparin drip rates controlled with metoprolol 5mg IV q6h (7) Coronary artery disease: Plan: no ischemic symptoms resume statin, plavix cont IV lopressor (8) Stage III chronic kidney disease: Plan: lasix on hold BMPs stable BMP in am (9) DM type 2 (diabetes mellitus, type 2): Plan: stable cont lantus + novolog HbA1C 6.7% (10) HTN (hypertension): Plan: BPs high since PO meds on hold cont lopressor 5mg IV q6h (11) Hypothyroid: Plan: resume levothyroxine 50 mcg daily when able most recent TSH wnl (2.3 in 09/2021) since he has been NPO for so long start IV synthroid (12) Hyperlipidemia: Plan: resume statin when able (13) GERD (gastroesophageal reflux disease): Plan: Continue PPI (14) Memory impairment: Plan: 2nd to vascular disease h/o Parkinsonism resume Sinemet 0.5 mg TID when able cont IV thiamine (15) BPH (benign prostatic hyperplasia): Plan: with urinary retention s/p farley insertion (16) Thrombocytopenia: Plan: chronic, typically runs low 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 platelets remain stable and at baseline (147 today) (17) Depression: Plan: Cymbalta remains on hold (18) B12 deficiency: Plan: resolved b12 level >1000 (19) Fever: Plan: suspected to be sinus source fevers resolved w/ rocephin day #3 rocephin 2gm daily to cover such cxr w/o pneumonia COVID testing negative urine culture negative (20) Kidney stones: Plan: seen on prior CT abd/pelvis if fevers recur consider repeat CT to ensure he has no obstructing stone (21) Schatzki's ring: Plan: s/p EGD dilatation today by Dr Fan cont PPI Plan care d/w GI and gen surg Admission and Anticipated Discharge Date Admission Date: March 02, 2022 Subjective saw patient post-EGD he was resting comfortably no complaints he understands that surgery will place a g-tube early this coming week staff report "trickle" of blood from nares today; no true epistaxis no bloody ear drainage family brought his hearing aid today and communication with him is easier with such a.fib rates remain controlled Review of Systems Review of Systems: gen - no fevers cv - no cp pulm - coughing at times GI - no pain; no vomiting Physical Exam Physical Exam: gen - awake/alert today; again nods accurately to communicate his needs and wants mouth - MM very dry nose - no epistaxis either nare ears - no otorrhea; hearing aid L ear neck - no JVD heart - irregularly irregular, s1 s2, 1/6 systolic murmur RUSB lungs - CTA b/l abd - soft, BS+, NT, ND ext - no edema of feet, pulses 2+ b/l; mild edema right arm improved neuro - right facial droop; expressive aphasia - ongoing; right arm strength 4+/5 today Results & Data Results & Data ([facility]) Vital Signs (Past 12 Hours) Vital Signs Temp Pulse Pulse Pulse Resp BP BP 03/15/22 19:47 36.8 C 68 19 182/107 H 03/15/22 17:22 74 154/98 H 03/15/22 12:22 66 154/98 H 03/15/22 11:23 37.1 C 76 18 151/94 H 03/15/22 10:56 72 18 124/86 03/15/22 10:37 83 18 110/66 03/15/22 10:23 79 16 110/66 03/15/22 09:41 36.4 C L 66 18 169/77 H Pulse Ox O2 Del Method O2 Flow Rate 03/15/22 19:47 92 Room Air 03/15/22 17:22 03/15/22 12:22 03/15/22 11:23 95 Room Air 03/15/22 10:56 94 Room Air 03/15/22 10:37 99 Nasal Cannula 2 03/15/22 10:23 99 Nasal Cannula 2 03/15/22 09:41 95 Room Air Laboratory Results Laboratory Results - last 24 hr 03/14/22 03/15/22 03/15/22 23:57 05:03 05:50 Sodium 136 Potassium 3.7 Chloride 104 Carbon Dioxide 25 Anion Gap 7 BUN 9 Creatinine 0.95 Est Cr Clr Drug Dosing 66.9 Est GFR ( Amer) 83.7 Est GFR (Non-Af Amer) 72.2 BUN/Creatinine Ratio 9.5 L Glucose 145 H POC Glucose 128 H 133 H Calcium 9.1 Magnesium 1.9 03/15/22 03/15/22 11:33 16:52 Sodium Potassium Chloride Carbon Dioxide Anion Gap BUN Creatinine Est Cr Clr Drug Dosing Est GFR ( Amer) Est GFR (Non-Af Amer) BUN/Creatinine Ratio Glucose POC Glucose 172 H 143 H Calcium Magnesium PG Care Time/CCT Total # of Minutes Spent Total Time Spent with Patient: Total time spent is greater than 50% in coordination of care (as documented) at patient's floor/unit and/or counseling patient: Coding Level of Care Code 28569 Subseq Hosp Care Lvl 3 Diagnoses Dysphagia R13.10 Stroke I63.9 Epistaxis R04.0 Status post myringotomy with tube placement of both ears Z96.22 S/P nasal polypectomy Z98.890 Atrial fibrillation I48.21 Atrial fibrillation type: permanent Coronary artery disease I25.10 Stage III chronic kidney disease N18.3 DM type 2 (diabetes mellitus, type 2) E11.9; Z79.4 Diabetes mellitus complication status: without complication Diabetes mellitus longterm insulin use: with tow operator use HTN (hypertension) I10 Hypothyroid E03.9 Hypothyroidism type: acquired Hyperlipidemia E78.2 Hyperlipidemia type: mixed hyperlipidemia GERD (gastroesophageal reflux disease) K21.9 Esophagitis presence: esophagitis presence not specified Memory impairment R41.3 BPH (benign prostatic hyperplasia) N40.0 Thrombocytopenia D69.6 Depression F32.9 B12 deficiency E53.8 Fever R50.9 Kidney stones N20.0 Schatzki's ring K22.2 (1) DM type 2 (diabetes mellitus, type 2) Diabetes mellitus complication status: without complication Diabetes mellitus longterm insulin use: with tow operator use Qualified Code(s): E11.9 - Type 2 diabetes mellitus without complications; Z79.4 - FPC (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
[2022-03-15 22:12] LABS: Partial Thromboplastin Ratio 1.2; Partial Thromboplastin Time 32.6 Seconds (21.0-31.0)
[2022-03-15] MEDS: ATORVASTATIN 40 MG TAB NG SCH (22:16)
[2022-03-15] MEDS: TAMSULOSIN HCL 0.4 MG CAP NG SCH (22:17)
[2022-03-15] MEDS: HEPARIN SODIUM/DEXTROSE 25,000 UNITS/500 ML BAG IV SCH (22:36)
[2022-03-16] MEDS: POTASSIUM CHLORIDE 20 MEQ in D5W AND LACTATED RINGERS 1,000 ML IV SCH ×2 (02:32→17:27)
[2022-03-16] MEDS: INSULIN ASPART PER UNIT SC SCH ×3 (05:58→17:28)
[2022-03-16] MEDS: METOPROLOL TARTRATE 1 MG/ML VIAL IV SCH ×3 (05:59→17:30)
[2022-03-16] MEDS: LEVOTHYROXINE SODIUM 50 MCG TABLET NG SCH (06:00)
[2022-03-16] MEDS: SODIUM CHLORIDE 0.65% NA SOLN 45 ML (OCEAN) SCH ×4 (06:03→17:31)
[2022-03-16 06:23] LABS: Hematocrit (blood only) 35.2 % (40.1-51.0); Hemoglobin 11.8 g/dl (14.0-18.0); Mean Corpuscular Hemoglobin 30.2 pg (25.0-34.0); Mean Corpuscular Hgb Conc 33.5 g/dL (32.0-36.0); Mean Platelet Volume 11.2 fL (9.4-12.4); Platelet Count 181 K/uL (130-400); RDW Coefficient of Variation 13.9 % (11.5-14.5); RDW Standard Deviation 45.6 fL (36.4-46.3); Red Blood Count 3.91 M/uL (4.63-6.08); White Blood Count 5.97 K/ul (4.8-10.8)
[2022-03-16 06:56] LABS: Partial Thromboplastin Ratio 2.8
[2022-03-16 07:04] LABS: BUN Creatinine Ratio 9.2 (10-20); Calcium 8.9 mg/dl (8.5-10.1); Creatinine Clr Calc Pharmacy 65.3 ml/min; Est GFR (African American) 80.6 ml/min; Est GFR (Non-African American) 69.5 ml/min; Potassium 3.7 mmol/L (3.5-5.1)
[2022-03-16 07:07] LABS: Partial Thromboplastin Time 76.6 Seconds (21.0-31.0)
[2022-03-16] MEDS: amLODIPine BESYLATE 5 MG TAB PO SCH (08:40)
[2022-03-16] MEDS: CARBIDOPA/LEVODOPA 25/100MG TAB NG SCH ×3 (08:40→20:07)
[2022-03-16] MEDS: DOCUSATE SODIUM SYRUP 100 MG/10 ML UDC NG SCH ×2 (09:02→20:07)
[2022-03-16] MEDS: lisinopril 40 MG TAB PO SCH (09:02)
[2022-03-16] MEDS: METOPROLOL TARTRATE 25 MG TAB OG SCH ×2 (09:02→20:08)
[2022-03-16] MEDS: CYANOCOBALAMIN (B-12) 500 MCG TABLET NG SCH (09:02)
[2022-03-16] MEDS: POLYETHYLENE (MIRALAX) 17 GM PACK NG SCH (09:02)
[2022-03-16] MEDS: CLOPIDOGREL BISULFATE 75 MG TAB PEG SCH (09:02)
[2022-03-16] MEDS: PREGABALIN 100 MG CAP PO SCH ×3 (09:03→20:08)
[2022-03-16] MEDS: THIAMINE HCL 100 MG in SYRINGE 9 ML IV SCH (09:22)
[2022-03-16] MEDS: LANTUS PER UNIT CHARGE SQ SCH ×2 (09:22→20:07)
[2022-03-16] MEDS: cefTRIAXone SODIUM 2,000 MG in DEXTROSE 5% 50 ML IV SCH (09:22)
[2022-03-16] MEDS: LEVOTHYROXINE SODIUM 25 MCG in SYRINGE 0 ML IV SCH (10:06)
[2022-03-16] MEDS: PANTOprazole 40 MG in SYRINGE 0 ML IV SCH (13:02)
[2022-03-16] MEDS: HEPARIN SODIUM/DEXTROSE 25,000 UNITS/500 ML BAG IV SCH ×2 (13:06→15:20)
[2022-03-16 13:50] LABS: Partial Thromboplastin Ratio 3.3
--- NOTE | 2022-03-16 19:36 | Hospitalist Progress Note ---
Date of Service March 16, 2022 Assessment & Plan (1) Dysphagia: Plan: known issue at baseline even prior to this hospital stay multiple etiologies - prior CVAs, new/current CVA, esophageal stenosis (required dilation 07/2021), etc failed his bedside swallow and his video swallow on 03/05/22 NPO since then repeat video swallow 03/14 - aspirated most consistencies; did slightly ok with pudding thick but speech stated he had cyanotic spell again during the study speech feels safest option is strict NPO with PEG placement Dr Fan from [facility] performed EGD 03/15; anatomy not suitable for PEG placement thus one not placed Gen surgery consulted for g-tube placement - this will occur early this coming week cont IV fluids (2) Stroke: Plan: Left basal ganglia/posterior limb of internal capsule. Thrombotic (off plavix recently) vs embolic etiology both possible (known aalmaz, was off Eliquis for his recent sinus surgery). Appreciate neurology consult earlier in the stay. Continue PT, OT, speech therapy. Right arm weakness continues to improve. Speech has improved as well. Failed video swallow on 03/05/22. Failed video swallow again 03/14/22. NPO since. s/p coresafe NG tube placement 03/11 - unfortunately he self-removed 03/13. will leave Coresafe out due to technical difficulties we had with it last week. see #1 re: attempts at PEG placement. Cont heparin drip. Holding plavix. (3) Epistaxis: Plan: resolved none overnight once again observe afrin protocol prn for recurrent nosebleed cont heparin drip cautiously (4) Status post myringotomy with tube placement of both ears: Plan: 03/01/22 - s/p Bilateral Myringotomy and Tube Insertion, Image guided bilateral endoscopic sinus surgery with bilateral frontal, total ethmoid, and maxillary sinus antrostomies Dr Ge surgery performed due to chronic sinus issues/sinusitis, polyps, chronic OME b/l, etc. now on ofloxacin drops b/l ears twice daily as recommended by Dr Ge recent bloody otorrhea improved started rocephin due to concern of sinusitis with low-grade fevers, severe congestion, etc. -- day #4 of such plan 7 days cxr w/o definitive pneumonia (5) S/P nasal polypectomy: Plan: 03/01/[address] Ge 03/08/22 - Endoscopic Sinus Debridement - also by Dr Ge (6) Atrial fibrillation: Plan: permanent / stable cont Heparin drip rates controlled with metoprolol 5mg IV q6h (7) Coronary artery disease: Plan: no ischemic symptoms resume statin, plavix when able (when G-tube placed) cont IV lopressor (8) Stage III chronic kidney disease: Plan: lasix on hold BMPs stable BMP in am (9) DM type 2 (diabetes mellitus, type 2): Plan: stable cont lantus + novolog HbA1C 6.7% (10) HTN (hypertension): Plan: BPs still high - thus, add hydralazine 5mg IV q8h cont lopressor 5mg IV q6h (11) Hypothyroid: Plan: resume levothyroxine 50 mcg daily when able most recent TSH wnl (2.3 in 09/2021) since he has been NPO for so long started IV synthroid (12) Hyperlipidemia: Plan: resume statin when able (13) GERD (gastroesophageal reflux disease): Plan: Continue PPI IV EGD 03.15 without any upper GI path such as esophagitis, PUD, etc. 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 platelets remain stable and at baseline (17) Depression: Plan: Cymbalta remains on hold (18) B12 deficiency: Plan: resolved b12 level >1000 (19) Fever: Plan: suspected to be sinus source fevers resolved w/ rocephin day #4 rocephin 2gm daily to cover such cxr w/o pneumonia COVID testing negative urine culture negative (20) Kidney stones: Plan: seen on prior CT abd/pelvis if fevers recur consider repeat CT to ensure he has no obstructing stone (21) Schatzki's ring: Plan: s/p EGD dilatation 03/[address] Fan cont PPI Plan left message for pt's son - Curt - 03/16 Admission and Anticipated Discharge Date Admission Date: March 02, 2022 Subjective patient without any complaints very awake today, vocalizing and talking significantly more than previous raising right arm spontaneously with good fish processor and movement denies cp, dyspnea, abd pain no epistaxis noted by staff tele - a.fib, rates <100 Review of Systems Review of Systems: gen - no fever cv - no orthopnea pulm - mild cough GI - no vomiting Physical Exam Physical Exam: gen - awake/alert today; talking and speaking much better than previous; occasional cough mouth - MM very dry nose - no epistaxis either nare neck - no JVD heart - irregularly irregular, s1 s2, 1/6 systolic murmur RUSB lungs - CTA b/l abd - soft, BS+, NT, ND ext - no edema, pulses 2+ b/l; mild edema right arm resolved neuro - right facial droop; expressive aphasia MUCH better; right arm strength 4-5/5 today; right leg 3/5; 5/5 left leg Results & Data Results & Data ([facility]) Vital Signs (Past 12 Hours) Vital Signs Temp Pulse Pulse Resp BP BP Pulse Ox 03/16/22 17:30 64 174/112 H 03/16/22 16:00 36.8 C 64 20 174/112 H 97 03/16/22 15:49 74 03/16/22 13:05 74 155/90 H 03/16/22 12:22 37.4 C 74 21 155/90 H 95 03/16/22 11:35 68 03/16/22 11:11 03/16/22 08:16 37.5 C 57 L 8 L 148/98 H 93 O2 Del Method O2 Flow Rate 03/16/22 17:30 03/16/22 16:00 Room Air 03/16/22 15:49 03/16/22 13:05 03/16/22 12:22 Room Air 03/16/22 11:35 03/16/22 11:11 Room Air 03/16/22 08:16 Nasal Cannula 2 Laboratory Results Laboratory Results - last 24 hr 03/15/22 03/15/22 03/16/22 21:47 23:29 05:46 WBC RBC Hgb Hct MCV MCH MCHC RDW Std Deviation RDW Coeff of Eben Plt Count MPV APTT 32.6 H PTT Ratio 1.2 Sodium Potassium Chloride Carbon Dioxide Anion Gap BUN Creatinine Est Cr Clr Drug Dosing Est GFR ( Amer) Est GFR (Non-Af Amer) BUN/Creatinine Ratio Glucose POC Glucose 144 H 134 H Calcium 03/16/22 03/16/22 03/16/22 06:10 06:10 06:10 WBC 5.97 RBC 3.91 L Hgb 11.8 L Hct 35.2 L MCV 90.0 MCH 30.2 MCHC 33.5 RDW Std Deviation 45.6 RDW Coeff of Eben 13.9 Plt Count 181 MPV 11.2 APTT 76.6 H* PTT Ratio 2.8 Sodium 138 Potassium 3.7 Chloride 106 Carbon Dioxide 25 Anion Gap 7 BUN 9 Creatinine 0.98 Est Cr Clr Drug Dosing 65.3 Est GFR ( Amer) 80.6 Est GFR (Non-Af Amer) 69.5 BUN/Creatinine Ratio 9.2 L Glucose 149 H POC Glucose Calcium 8.9 03/16/22 03/16/22 03/16/22 11:35 13:12 17:23 WBC RBC Hgb Hct MCV MCH MCHC RDW Std Deviation RDW Coeff of Eben Plt Count MPV APTT 92.0 H* PTT Ratio 3.3 Sodium Potassium Chloride Carbon Dioxide Anion Gap BUN Creatinine Est Cr Clr Drug Dosing Est GFR ( Amer) Est GFR (Non-Af Amer) BUN/Creatinine Ratio Glucose POC Glucose 179 H 144 H Calcium PG Care Time/CCT Total # of Minutes Spent Total Time Spent with Patient: Total time spent is greater than 50% in coordination of care (as documented) at patient's floor/unit and/or counseling patient: Coding Level of Care Code 76897 Subseq Hosp Care Lvl 2 Diagnoses Dysphagia R13.10 Stroke I63.9 Epistaxis R04.0 Status post myringotomy with tube placement of both ears Z96.22 S/P nasal polypectomy Z98.890 Atrial fibrillation I48.21 Atrial fibrillation type: permanent Coronary artery disease I25.10 Stage III chronic kidney disease N18.3 DM type 2 (diabetes mellitus, type 2) E11.9; Z79.4 Diabetes mellitus complication status: without complication 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 use: with intermediate use HTN (hypertension) I10 Hypothyroid E03.9 Hypothyroidism type: acquired Hyperlipidemia E78.2 Hyperlipidemia type: mixed hyperlipidemia GERD (gastroesophageal reflux disease) K21.9 Esophagitis presence: esophagitis presence not specified Memory impairment R41.3 BPH (benign prostatic hyperplasia) N40.0 Thrombocytopenia D69.6 Depression F32.9 B12 deficiency E53.8 Fever R50.9 Kidney stones N20.0 Schatzki's ring K22.2 (1) DM type 2 (diabetes mellitus, type 2) Diabetes mellitus complication status: without complication 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 use: with hot air furnace installer repairer use Qualified Code(s): E11.9 - Type 2 diabetes mellitus without complications; Z79.4 - retirement (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
[2022-03-16] MEDS: hydrALAZINE HCL 20 MG/ML VIAL IV SCH (20:05)
[2022-03-16] MEDS: ATORVASTATIN 40 MG TAB NG SCH (20:07)
[2022-03-16] MEDS: TAMSULOSIN HCL 0.4 MG CAP NG SCH (20:08)
[2022-03-16 22:14] LABS: Partial Thromboplastin Ratio 2.6
[2022-03-16 22:34] LABS: Partial Thromboplastin Time 72.3 Seconds (21.0-31.0)
[2022-03-17] MEDS: METOPROLOL TARTRATE 1 MG/ML VIAL IV SCH ×4 (00:17→17:40)
[2022-03-17] MEDS: INSULIN ASPART PER UNIT SC SCH ×4 (00:21→17:40)
[2022-03-17] MEDS: hydrALAZINE HCL 20 MG/ML VIAL IV SCH ×4 (05:20→20:24)
[2022-03-17 06:40] LABS: Partial Thromboplastin Ratio 2.5
[2022-03-17 06:42] LABS: Partial Thromboplastin Time 69.2 Seconds (21.0-31.0)
[2022-03-17] MEDS: amLODIPine BESYLATE 5 MG TAB PO SCH (08:28)
[2022-03-17] MEDS: DOCUSATE SODIUM SYRUP 100 MG/10 ML UDC NG SCH ×2 (08:28→20:21)
[2022-03-17] MEDS: CYANOCOBALAMIN (B-12) 500 MCG TABLET NG SCH (08:28)
[2022-03-17] MEDS: CARBIDOPA/LEVODOPA 25/100MG TAB NG SCH ×3 (08:28→20:20)
[2022-03-17] MEDS: METOPROLOL TARTRATE 25 MG TAB OG SCH ×2 (08:28→20:21)
[2022-03-17] MEDS: CLOPIDOGREL BISULFATE 75 MG TAB PEG SCH (08:28)
[2022-03-17] MEDS: lisinopril 40 MG TAB PO SCH (08:28)
[2022-03-17] MEDS: POLYETHYLENE (MIRALAX) 17 GM PACK NG SCH (08:29)
[2022-03-17] MEDS: PREGABALIN 100 MG CAP PO SCH ×3 (08:29→20:21)
[2022-03-17] MEDS: cefTRIAXone SODIUM 2,000 MG in DEXTROSE 5% 50 ML IV SCH (08:32)
[2022-03-17] MEDS: HEPARIN SODIUM/DEXTROSE 25,000 UNITS/500 ML BAG IV SCH (08:33)
[2022-03-17] MEDS: THIAMINE HCL 100 MG in SYRINGE 9 ML IV SCH (08:34)
[2022-03-17] MEDS: LANTUS PER UNIT CHARGE SQ SCH ×2 (08:36→20:21)
[2022-03-17] MEDS: SODIUM CHLORIDE 0.65% NA SOLN 45 ML (OCEAN) SCH ×4 (08:40→16:19)
[2022-03-17] MEDS: PANTOprazole 40 MG in SYRINGE 0 ML IV SCH (09:58)
[2022-03-17] MEDS: POTASSIUM CHLORIDE 20 MEQ in D5W AND LACTATED RINGERS 1,000 ML IV SCH (09:58)
--- NOTE | 2022-03-17 10:19 | Anesthesiology Consultation ---
Date of Service March 17, 2022 Assessment & Plan (1) Encounter for pre-operative examination: Chart Review Chart Review: entry manager initiated History Surgery Operation Date: 03/08/22 09:55 Proposed Procedures p Endopscopic Sinus Debridement, Placement NG Tube Nasal using Endoscope - Britt Ge MD Operation Date: 03/15/22 16:30 Proposed Procedures p Esophagogastroduodenoscopy with Gastric Tube Placement Dr Fan - Candelario Fan, DO Operation Date: 03/19/22 13:30 Proposed Procedures p Laparoscopic Assisted Gastric Tube Placement - Danilo Webb, Height/Weight Height: 5 ft 11 in Weight: 99 kg Allergies Allergy/AdvReac Type Severity Reaction Status Date / Time hydrocodone AdvReac Mild Dizziness, Verified 03/01/22 05:55 [From Panlor Nausea (hydrocodone-acetamin)] oxycodone AdvReac Mild N/V Verified 03/01/22 05:55 tramadol AdvReac Mild Confusion Verified 03/01/22 05:55 Medications Home Medications Medication Instructions Recorded Confirmed Last Taken apixaban 2.5 mg tablet (Eliquis) 2.5 mg PO BID #180 tabs 08/21/20 03/02/22 02/27/22 08:00 atorvastatin 80 mg tablet 80 mg PO HS #90 tabs 08/21/20 03/02/22 02/27/22 20:30 finasteride 5 mg tablet 5 mg PO QAM #90 tabs 08/21/20 03/02/22 02/28/22 08:00 levothyroxine 50 mcg tablet 50 mcg PO QAM #90 tabs 08/21/20 03/02/22 02/28/22 08:00 triamcinolone acetonide 0.1 % 1 applic topical BID #30 grams 10/02/20 03/01/22 05/04/21 08:00 topical cream glycerin 2 drp ophthalmic (eye) BID 10/17/20 03/02/22 02/28/22 08:00 blood sugar diagnostic (OneTouch #100 ea 10/18/20 02/22/22 Unknown Ultra Blue Test Strip) lancets 33 gauge (OneTouch Delica #100 ea 10/18/20 02/22/22 Unknown Plus Lancet) blood-glucose meter (OneTouch #1 ea 10/31/20 02/22/22 Unknown Ultra2 Meter) methylcellulose (with sugar) 2 2 g PO DAILY #454 grams 01/19/21 03/02/22 02/28/22 08:00 gram/19 gram oral powder (Fiber Therapy (methylcellulose-sugar)) pen needle, diabetic 32 gauge x #100 ea 02/15/21 02/22/22 Unknown 5/32" (BD Ultra-Fine Mayr Carmen Pen Needle) famotidine 20 mg tablet 20 mg PO BID #60 tabs 03/28/21 03/02/22 02/28/22 08:00 docusate sodium 100 mg capsule 100 mg PO BID #60 caps 04/03/21 03/02/22 02/28/22 08:00 hydrocortisone 2.5 % topical cream 1 applic NC DAILY PRN hemorrhoids 04/09/21 03/02/22 Unknown with perineal applicator #30 grams pregabalin 100 mg capsule 100 mg PO TID #90 caps 04/19/21 03/02/22 02/28/22 08:00 diclofenac sodium 1 % topical gel 4 g topical QID PRN Pain 05/04/21 03/02/22 Unknown carbidopa 25 mg-levodopa 100 mg 0.5 tab PO TID #45 tabs 05/21/21 03/02/22 03/01/22 04:30 tablet (Sinemet) magnesium oxide 400 mg PO BID #60 tabs 06/04/21 03/02/22 02/28/22 08:00 clopidogrel 75 mg tablet 75 mg PO QAM #90 tabs 06/11/21 03/02/22 02/28/22 08:00 acetaminophen 325 mg tablet 650 mg PO QID PRN Pain 02/04/22 03/02/22 Unknown cyanocobalamin (vitamin B-12) 1,000 mcg PO DAILY 02/04/22 03/02/22 02/28/22 08:00 1,000 mcg tablet duloxetine 60 mg capsule,delayed 30 mg PO QAM 02/04/22 03/02/22 02/28/22 08:00 release furosemide 20 mg tablet 40 mg PO 3XWK 02/04/22 03/02/22 02/27/22 08:00 insulin NPH-regular 70-30 U-100 30 unit subcut BID 02/04/22 03/02/22 02/28/22 08:00 insulin 100 unit/mL subcutaneous pen (Novolin 70-30 FlexPen U-100 Insulin) insulin aspart U-100 100 unit/mL 1 sliding scale dose subcut 02/04/22 03/02/22 Unknown subcutaneous solution (Novolog USEASDIRECTD U-100 Insulin aspart) lisinopril 40 mg tablet 40 mg PO DAILY 02/04/22 03/02/22 02/28/22 08:00 magnesium hydroxide 800 mg/5 mL 7.75 mg PO DIRECTED PRN 02/04/22 03/02/22 Unknown oral suspension Constipation ondansetron HCl 4 mg tablet 4 mg PO Q8H PRN Nausea 02/04/22 03/02/22 Unknown pantoprazole 40 mg tablet,delayed 40 mg PO DAILY 02/04/22 03/02/22 02/28/22 08:00 release semaglutide 0.25 mg or 0.5 mg (2 0.5 mg subcut WK 02/04/22 03/02/22 02/26/22 08:00 mg/1.5 mL) subcutaneous pen injector (Ozempic) sodium phosphates 19 gram-7 118 ml NC DAILY PRN Constipation 02/04/22 03/02/22 U nknown gram/118 mL enema (Enema) ofloxacin 0.3 % ear drops 5 drp otic (ear) BID #5 mL 03/01/22 03/02/22 Unknown tramadol 50 mg tablet 50 mg PO Q8H PRN Pain #20 tabs 03/01/22 03/02/22 Unknown Active Medications Generic Name Dose Route Start Last Admin Trade Name Barak PRN Reason Stop Dose Admin Amlodipine Besylate 5 mg 03/09/22 16:15 03/17/22 08:28 Amlodipine Besylate 5 Mg Tab PO 04/08/22 16:14 Not Given QAM STEPH Atorvastatin Calcium 80 mg 03/08/22 21:00 03/16/22 20:07 Atorvastatin 40 Mg Tab NG 04/07/22 20:59 Not Given HS STEPH Carbidopa/Levodopa 0.5 tab 03/08/22 21:00 03/17/22 08:28 Carbidopa/Levodopa 25/100mg Tab NG 04/07/22 20:59 Not Given TID STEPH Clopidogrel Bisulfate 75 mg 03/09/22 09:00 03/17/22 08:28 Clopidogrel Bisulfate 75 Mg Tab PEG 04/08/22 08:59 Not Given QAM STEPH Cyanocobalamin 1,000 mcg 03/09/22 09:00 03/17/22 08:28 Cyanocobalamin (B-12) 500 Mcg Tablet NG 04/08/22 08:59 Not Given DAILY STEPH Docusate Sodium 100 mg 03/08/22 21:00 03/17/22 08:28 Docusate Sodium Syrup 100 Mg/10 Ml Udc NG 04/07/22 20:59 Not Given BID STEPH Enteral Nutritional Formula 1,000 ml 03/08/22 17:15 03/11/22 18:17 Fibersource Hn 1.2 Raul 1000 Ml Bag NG 04/07/22 17:14 10 ml UD STEPH Administration Protocol Hydralazine HCl 10 mg 03/10/22 08:08 03/15/22 03:03 Hydralazine Hcl 20 Mg/Ml Vial IV 04/03/22 21:59 10 mg Q8 PRN Administration SBP>180 Hydralazine HCl 5 mg 03/16/22 20:00 03/17/22 05:20 Hydralazine Hcl 20 Mg/Ml Vial IV 04/15/22 19:59 5 mg Q8 STEPH Administration Thiamine HCl 100 mg/ Syringe 10 mls @ 2 mls/min 03/12/22 09:00 03/17/22 08:34 IV 04/11/22 08:59 2 mls/min QAM STEPH Administration Potassium Chloride 20 meq/ 1,010 mls @ 70 mls/hr 03/12/22 11:30 03/17/22 09:58 Dextrose/Lactated Ringer's IV 04/11/22 11:29 70 mls/hr .[id number] STEPH Administration Ceftriaxone Sodium 2,000 mg/ 70 mls @ 100 mls/hr 03/13/22 11:00 03/17/22 09:39 Dextrose IV 03/23/22 10:59 Infused DAILY STEPH Infusion Protocol Heparin Sodium/Dextrose 25,000 units in 500 mls @ 22 mls/hr 03/15/22 20:15 03/17/22 08:33 Heparin Sodium/Dextrose IV 04/14/22 20:14 1,100 units/hr .[id number] STEPH 22 mls/hr Administration Protocol 1,100 UNITS/HR Levothyroxine Sodium 25 mcg/ 1.25 mls @ 2 mls/min 03/16/22 09:00 03/16/22 10:06 Syringe IV 04/15/22 08:59 2 mls/min Q72H STEPH Administration Protocol Pantoprazole Sodium 40 mg/ 10 mls @ 5 mls/min 03/16/22 11:00 03/17/22 09:58 Syringe IV 04/15/22 10:59 5 mls/min DAILY@1100 STEPH Administration Insulin Aspart 0 units 03/04/22 06:00 03/17/22 05:22 Insulin Aspart Per Unit SC 04/03/22 05:59 Not Given Q6 STEPH Protocol Insulin Glargine 10 units 03/12/22 21:00 03/16/22 20:07 Lantus Per Unit Charge SQ 04/11/22 20:59 10 units HS STEPH Administration Insulin Glargine 10 units 03/13/22 10:45 03/17/22 08:36 Lantus Per Unit Charge SQ 04/12/22 10:44 10 units QAM STEPH Administration Lansoprazole 15 mg 03/09/22 09:00 03/15/22 07:10 Lansoprazole 15 Mg Soltab NG 04/08/22 08:59 Not Given QAM STEPH Levothyroxine Sodium 50 mcg 03/09/22 06:30 03/16/22 06:00 Levothyroxine Sodium 50 Mcg Tablet NG 04/08/22 06:29 Not Given DAILYBB STEPH Lisinopril 40 mg 03/09/22 09:00 03/17/22 08:28 Lisinopril 40 Mg Tab PO 04/08/22 08:59 Not Given QAM STEPH Metoprolol Tartrate 25 mg 03/13/22 21:00 03/17/22 08:28 Metoprolol Tartrate 25 Mg Tab OG 04/12/22 20:59 Not Given BID STEPH Metoprolol Tartrate 5 mg 03/14/22 16:15 03/17/22 05:16 Metoprolol Tartrate 1 Mg/Ml Vial IV 04/13/22 16:14 5 mg Q6 STEPH Administration Polyethylene Glycol 17 gm 03/09/22 09:00 03/17/22 08:29 Polyethylene (Miralax) 17 Gm Pack NG 04/08/22 08:59 Not Given DAILY STEPH Pregabalin 100 mg 03/02/22 14:40 03/17/22 08:29 Pregabalin 100 Mg Cap PO 04/01/22 14:39 Not Given TID STEPH Sodium Chloride 2 sprays 03/09/22 16:00 03/17/22 09:59 Sodium Chloride 0.65% Na Soln 45 Ml ([place]) NA 04/08/22 15:59 2 sprays [id number] STEPH Administration Sterile Water 100 ml 03/08/22 18:00 03/13/22 15:07 Tube Feeding Water Flush NG 04/07/22 17:59 Not Given Q4H STEPH Tamsulosin HCl 0.4 mg 03/08/22 21:00 03/16/22 20:08 Tamsulosin Hcl 0.4 Mg Cap NG 04/07/22 20:59 Not Given HS STEPH NPO Date Last Intake of Fluids: 03/13/22 Time Last Intake of Fluids: 08:00 Date Last Intake of Solids: 03/13/22 Time Last Intake of Solids: 08:00 Past Medical History Medical History Abnormal tympanic membrane R/L Atrial fibrillation Paroxysmal BPH (benign prostatic hyperplasia) CKD (chronic kidney disease) Coronary artery disease s/p CABG (2010) Depression DM type 2 (diabetes mellitus, type 2) GERD (gastroesophageal reflux disease) Hearing deficit HTN (hypertension) Hyperlipidemia Hypothyroid Kidney stones LVH (left ventricular hypertrophy) Focal thickening of the basal septum with no evidence of LVOT obstruction, Mild asymmetric LVH per 12/2018 echo Major depressive disorder Memory impairment Myocardial Infarction 2004 Follows with [facility] [place] cardiology/Dr. 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 Yates Transient hypotension Upper respiratory infection Vocal cord paralysis Past Family History Family History Father Diabetes Coronary heart disease Mother Diabetes Coronary heart disease Myocardial infarction Sister Breast cancer Brother Coronary heart disease Son Family history of diabetes mellitus Family/Other Family history of diabetes mellitus grandson Other No family history of adverse response to anesthesia Denies family history of Ovarian cancer Prostate cancer Colorectal cancer Past Surgical History Surgical History History of bilateral cataract extraction History of esophagogastroduodenoscopy (EGD) History of kidney surgery History of lithotripsy x2 History of lumbar laminectomy History of tooth extraction [place] [place] Social History Smoking Status: Never smoker Hx Alcohol Use: No Hx Substance Use: No substance use type: does not use Physical Exam Vital Signs Last Vital Signs Temp 97.9 F 03/17/22 08:17 Pulse 75 03/17/22 09:06 Resp 8 L 03/17/22 08:17 BP 177/90 H 03/17/22 08:17 Pulse Ox 94 03/17/22 08:17 O2 Del Method 03/17/22 08:17 O2 Flow Rate 2 03/17/22 05:08 Testing Laboratory Results 03/16/22 06:10 03/16/22 06:10 PT 11.8 Seconds (9.0-12.0) 03/08/22 18:00 INR 1.1 (0.9-1.1) 03/08/22 18:00 APTT 69.2 Seconds (21.0-31.0) H* 03/17/22 05:26 Hemoglobin A1c 6.7 % (4.5-5.6) H 03/03/22 06:38 Urine Color Yellow 03/12/22 15:25 Urine Appearance Clear (Clear) 03/12/22 15:25 Urine pH 7.5 (4.5-7.5) 03/12/22 15:25 Ur Specific [place] 1.006 (1.000-1.030) 03/12/22 15:25 Urine Protein Negative (Negative) 03/12/22 15:25 Urine Glucose (UA) Negative (Negative) 03/12/22 15:25 Urine Ketones Negative (Negative) 03/12/22 15:25 Urine Nitrite Negative (Negative) 03/12/22 15:25 Ur Leukocyte Esterase Trace (Negative) H 03/12/22 15:25 Urine WBC (Auto) 1-5 /hpf (0-5) 03/12/22 15:25 Urine RBC (Auto) 10-30 /hpf (0-4) H 03/12/22 15:25 U Hyaline Cast (Auto) 0 /lpf (0-5) 03/12/22 15:25 U Epithel Cells (Auto) 0-5 /lpf (0-5) 03/12/22 15:25 Urine Bacteria (Auto) Negative (Negative) 03/12/22 15:25 03/12/22 15:25 Urine Culture - Final Urine,Indwelling Cath No growth - less than 1,000 colonies/mL. 03/17/22 03/17/22 05:12 00:14 POC Glucose 129 H 126 H Electrocardiogram Date: 03/02/22 Atrial fibrillation, rate 74 bpm Abnormal ECG When compared with ECG of 10-AUG-2021 11:43, No significant change was found Confirmed by Romie Becerra ([id number]) on 03/03/2022 9:07:43 AM Chest X-Ray Date: 03/13/22 IMPRESSION: 1. The tip of the enteric tube projects over the distal esophagus. Repositioning is indicated. 2. Cardiomegaly with mild pulmonary vascular congestion. 3. No airspace consolidation or large pleural effusion is identified. Echocardiogram Date: 03/03/22 Compared with 01/10/19 study, mild progression of and LVH, otherwise no significant change The LV is normal in size LV systolic function is normal EF 60-65% LV wall motion is normal There is moderate concentric LVH Grade 1 diastolic dysfunction Mild valvular Mild to mod MR LA is mod dilated Cervical Spine Date: 10/17/20 IMPRESSION: No fracture or subluxation within the cervical spine. Mild facet degenerative changes seen throughout the cervical spine.
[2022-03-17 13:29] LABS: Partial Thromboplastin Ratio 2.6
[2022-03-17 13:35] LABS: Partial Thromboplastin Time 70.6 Seconds (21.0-31.0)
[2022-03-17] MEDS ORDERED: MoRPHine SULFATE 2 MG/ML CARP IV STA (15:04)
[2022-03-17] MEDS ORDERED: methylPREDNISolone 20 MG in SYRINGE 0 ML IV STA (15:04)
--- NOTE | 2022-03-17 15:11 | Hospitalist Progress Note ---
Date of Service March 17, 2022 Assessment & Plan (1) Gout: Plan: right elbow (likely olecrenon bursitis). right hand, and right great toe. EMR shows prior h/o gout. Morphine 2mg IV x 1. Solumedrol 20mg IV x 1. Follow response. Previous uric acid levels have been 6.5-7 range. Likely to need a few days of steroids - give IV due to NPO status. (2) Dysphagia: Plan: known issue at baseline even prior to this hospital stay multiple etiologies - prior CVAs, new/current CVA, esophageal stenosis (required dilation 07/2021), etc failed his bedside swallow and his video swallow on 03/05/22 NPO since then repeat video swallow 03/14 - aspirated most consistencies; did slightly ok with pudding thick but speech stated he had cyanotic spell again during the study speech feels safest option is strict NPO with PEG placement Dr Fan from [facility] performed EGD 03/15; anatomy not suitable for PEG placement thus one not placed Gen surgery consulted for g-tube placement - this will occur early this coming week cont IV fluids (3) Stroke: Plan: Left basal ganglia/posterior limb of internal capsule. Thrombotic (off plavix recently) vs embolic etiology both possible (known a.fib, was off Eliquis for his recent sinus surgery). Appreciate neurology consult earlier in the stay. Continue PT, OT, speech therapy. Right arm weakness continues to improve. Speech has improved as well. Failed video swallow on 03/05/22. Failed video swallow again 03/14/22. NPO since. s/p coresafe NG tube placement 03/11 - unfortunately he self-removed 03/13. will leave Coresafe out due to technical difficulties we had with it last week. see #1 re: attempts at PEG placement. Cont heparin drip. Holding plavix. (4) Epistaxis: Plan: resolved none overnight once again afrin protocol prn for recurrent nosebleed cont heparin drip cautiously (5) Status post myringotomy with tube placement of both ears: Plan: 03/01/22 - s/p Bilateral Myringotomy and Tube Insertion, Image guided bilateral endoscopic sinus surgery with bilateral frontal, total ethmoid, and maxillary sinus antrostomies Dr Ge surgery performed due to chronic sinus issues/sinusitis, polyps, chronic OME b/l, etc. completed course of ofloxacin drops b/l ears twice daily as recommended by Dr Ge recent bloody otorrhea improved/resolved started rocephin due to concern of sinusitis with low-grade fevers, severe congestion, etc. -- day #5 of such plan 7 days cxr w/o definitive pneumonia (6) S/P nasal polypectomy: Plan: 03/01/[address] Ge 03/08/22 - Endoscopic Sinus Debridement - also by Dr Ge complete course of rocephin for probable sinusitis -- day #5 of 7 today (7) Atrial fibrillation: Plan: permanent / stable cont Heparin drip rates controlled with metoprolol 5mg IV q6h (8) Coronary artery disease: Plan: no ischemic symptoms resume statin, plavix when able (when G-tube placed) cont IV lopressor (9) Stage III chronic kidney disease: Plan: lasix on hold BMPs stable BMP in am (10) DM type 2 (diabetes mellitus, type 2): Plan: stable cont lantus + novolog HbA1C 6.7% (11) HTN (hypertension): Plan: cont hydralazine but increase to 10mg IV q8h due to uncontrolled BPs cont lopressor 5mg IV q6h if more BP control is needed can use topical nitrates or IV enalapril (12) Hypothyroid: Plan: resume levothyroxine 50 mcg daily when able most recent TSH wnl (2.3 in 09/2021) since he has been NPO for so long started IV synthroid q72h (13) Hyperlipidemia: Plan: resume statin when able (14) GERD (gastroesophageal reflux disease): Plan: Continue PPI IV EGD 03/15 without any upper GI path such as esophagitis, PUD, etc. 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 platelets remain stable and at baseline (18) Depression: Plan: Cymbalta remains on hold (19) B12 deficiency: Plan: resolved b12 level >1000 (20) Fever: Plan: suspected to be sinus source fevers resolved w/ rocephin day #5 rocephin 2gm daily to cover such cxr w/o pneumonia COVID testing negative urine culture negative plan 7 day course of rocephin (21) Kidney stones: Plan: seen on prior CT abd/pelvis if fevers recur consider repeat CT to ensure he has no obstructing stone -- but no abd pain or other features to suggest such (22) Schatzki's ring: Plan: s/p EGD dilatation 03/[address] Fan cont PPI Plan DVT proph - heparin drip left message for pt's son - Curt - 03/16/22 Admission and Anticipated Discharge Date Admission Date: March 02, 2022 Subjective c/o severe right elbow pain that began this am acutely also with right great toe pain and pain in his right hand no dyspnea no cp no abd pain took 5 steps with PT today tele overnight - a.fib, rates <100 watching [employer] baseball on TV during the visit Review of Systems Review of Systems: gen - no fevers cv - no orthopnea pulm - no cough GI - no N/V Physical Exam Physical Exam: gen - talking, telling me about his pain in the right elbow, voicing other complaints mouth - MM very dry, ?thrush nose - no epistaxis either nare neck - no JVD heart - irregularly irregular, s1 s2, 1/6 systolic murmur RUSB lungs - CTA b/l abd - soft, BS+, NT, ND ext - no edema, pulses 2+ b/l; mild edema right arm neuro - right facial droop; expressive aphasia MUCH MUCH better today; right arm strength 4-5/5 today; right leg 3/5; 5/5 left leg musculo - exquisite tenderness right olecrenon process to palpation; mild swelling, mild warmth; no elbow effusion and elbow joint itself is not tender; right great toe podagra; 2nd digit right hand with swelling/synovitis Results & Data Results & Data ([facility]) Vital Signs (Past 12 Hours) Vital Signs Temp Pulse Pulse Resp BP BP Pulse Ox 03/17/22 12:05 36.7 C 67 7 L 175/101 H 95 03/17/22 11:40 75 177/90 H 03/17/22 10:48 03/17/22 09:06 75 03/17/22 08:17 36.6 C 69 8 L 177/90 H 94 03/17/22 05:16 75 151/86 H 03/17/22 05:08 36.9 C 75 16 151/86 H 95 O2 Del Method O2 Flow Rate 03/17/22 12:05 Room Air 03/17/22 11:40 03/17/22 10:48 Room Air 03/17/22 09:06 03/17/22 08:17 Room Air 03/17/22 05:16 03/17/22 05:08 Oxymask 2 Laboratory Results Laboratory Results - last 24 hr 03/16/22 03/16/22 03/17/22 17:23 21:22 00:14 APTT 72.3 H* PTT Ratio 2.6 POC Glucose 144 H 126 H 03/17/22 03/17/22 03/17/22 05:12 05:26 11:32 APTT 69.2 H* PTT Ratio 2.5 POC Glucose 129 H 168 H 03/17/22 12:45 APTT 70.6 H* PTT Ratio 2.6 POC Glucose PG Care Time/CCT Total # of Minutes Spent Total Time Spent with Patient: Total time spent is greater than 50% in coordination of care (as documented) at patient's floor/unit and/or counseling patient: Coding Level of Care Code 55477 Subseq Hosp Care Lvl 3 Diagnoses Gout M10.9 Dysphagia R13.10 Stroke I63.9 Epistaxis R04.0 Status post myringotomy with tube placement of both ears Z96.22 S/P nasal polypectomy Z98.890 Atrial fibrillation I48.21 Atrial fibrillation type: permanent Coronary artery disease I25.10 Stage III chronic kidney disease N18.3 DM type 2 (diabetes mellitus, type 2) E11.9; Z79.4 Diabetes mellitus complication status: without complication Diabetes mellitus jail insulin use: with jail use HTN (hypertension) I10 Hypothyroid E03.9 Hypothyroidism type: acquired Hyperlipidemia E78.2 Hyperlipidemia type: mixed hyperlipidemia GERD (gastroesophageal reflux disease) K21.9 Esophagitis presence: esophagitis presence not specified Memory impairment R41.3 BPH (benign prostatic hyperplasia) N40.0 Thrombocytopenia D69.6 Depression F32.9 B12 deficiency E53.8 Fever R50.9 Kidney stones N20.0 Schatzki's ring K22.2 (1) DM type 2 (diabetes mellitus, type 2) Diabetes mellitus complication status: without complication Diabetes mellitus jail insulin use: with jail use Qualified Code(s): E11.9 - Type 2 diabetes mellitus without complications; Z79.4 - medical terminologist (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
[2022-03-17] MEDS: FLUCONAZOLE 100 MG/50 ML BAG IV SCH (16:19)
[2022-03-17 20:19] LABS: Partial Thromboplastin Ratio 2.2; Partial Thromboplastin Time 61.3 Seconds (21.0-31.0)
[2022-03-17] MEDS: ATORVASTATIN 40 MG TAB NG SCH (20:20)
[2022-03-17] MEDS: TAMSULOSIN HCL 0.4 MG CAP NG SCH (20:21)
[2022-03-18] MEDS: POTASSIUM CHLORIDE 20 MEQ in D5W AND LACTATED RINGERS 1,000 ML IV SCH ×2 (00:01→11:43)
[2022-03-18] MEDS: INSULIN ASPART PER UNIT SC SCH ×5 (00:02→23:45)
[2022-03-18] MEDS: METOPROLOL TARTRATE 1 MG/ML VIAL IV SCH ×5 (00:03→23:44)
[2022-03-18] MEDS: hydrALAZINE HCL 20 MG/ML VIAL IV SCH ×3 (05:11→20:39)
[2022-03-18] MEDS: SODIUM CHLORIDE 0.65% NA SOLN 45 ML (OCEAN) SCH ×4 (06:19→15:16)
[2022-03-18 06:51] LABS: BUN Creatinine Ratio 9.8 (10-20); Calcium 9.3 mg/dl (8.5-10.1); Creatinine Clr Calc Pharmacy 61.8 ml/min; Est GFR (African American) 76.8 ml/min; Est GFR (Non-African American) 66.2 ml/min; Phosphorus 3.2 mg/dl (2.5-4.9); Potassium 4.3 mmol/L (3.5-5.1)
[2022-03-18 07:02] LABS: Partial Thromboplastin Ratio 2.1
[2022-03-18 07:03] LABS: Partial Thromboplastin Time 58.6 Seconds (21.0-31.0)
[2022-03-18] MEDS: amLODIPine BESYLATE 5 MG TAB PO SCH (07:22)
[2022-03-18] MEDS: CARBIDOPA/LEVODOPA 25/100MG TAB NG SCH ×3 (07:22→20:37)
[2022-03-18] MEDS: POLYETHYLENE (MIRALAX) 17 GM PACK NG SCH (07:23)
[2022-03-18] MEDS: DOCUSATE SODIUM SYRUP 100 MG/10 ML UDC NG SCH ×2 (07:23→20:37)
[2022-03-18] MEDS: METOPROLOL TARTRATE 25 MG TAB OG SCH ×2 (07:23→20:37)
[2022-03-18] MEDS: lisinopril 40 MG TAB PO SCH (07:23)
[2022-03-18] MEDS: CYANOCOBALAMIN (B-12) 500 MCG TABLET NG SCH (07:23)
[2022-03-18] MEDS: CLOPIDOGREL BISULFATE 75 MG TAB PEG SCH (07:23)
[2022-03-18] MEDS: PREGABALIN 100 MG CAP PO SCH ×3 (07:24→20:37)
[2022-03-18] MEDS: cefTRIAXone SODIUM 2,000 MG in DEXTROSE 5% 50 ML IV SCH (08:12)
[2022-03-18] MEDS: HEPARIN SODIUM/DEXTROSE 25,000 UNITS/500 ML BAG IV SCH (08:16)
[2022-03-18] MEDS: THIAMINE HCL 100 MG in SYRINGE 9 ML IV SCH (08:18)
[2022-03-18] MEDS: LANTUS PER UNIT CHARGE SQ SCH ×2 (08:25→20:39)
[2022-03-18] MEDS: PANTOprazole 40 MG in SYRINGE 0 ML IV SCH (11:16)
--- NOTE | 2022-03-18 12:07 | Surgery Progress Note ---
Date of Service March 18, 2022 Assessment & Plan (1) Acute CVA (cerebrovascular accident): Plan: Agree he needs a feeding tube. Was unable to be placed endoscopically by GI. Discussed with the primary team Dr. Villatoro... Okay to proceed tomorrow with gastrostomy tube placement. Will reattempt EGD with gastrostomy tube placement if unable to perform we will perform laparoscopic assisted gastrostomy tube placement. Discussed this with his son. We discussed risks which include bleeding, infection, leakage, DVT, PE, MT, CVA etc. I answered all of his questions. We will proceed tomorrow with EGD with attempted gastrostomy tube placement possible laparoscopic assistance. (2) Feeding difficulties: (3) NAVEED (acute kidney injury): Admission and Anticipated Discharge Date Admission Date: March 02, 2022 Subjective Patient awake and alert but difficult to converse secondary to aphasia. I spoke to his son on the phone regarding his need for feeding tube. Physical Exam Physical Exam: Awake and alert unable to verbalize. Abdomen is soft nontender. Nondistended Heart is regular rate and rhythm Results & Data ([facility]) Vital Signs (Past 12 Hours) Vital Signs Temp Pulse Pulse Resp BP BP Pulse Ox 03/18/22 11:40 70 175/88 H 03/18/22 11:11 36.6 C 75 18 175/88 H 97 03/18/22 08:00 69 03/18/22 08:00 03/18/22 07:55 36.6 C 72 18 137/77 93 03/18/22 05:14 72 171/94 H 03/18/22 03:48 36.3 C L 72 16 171/94 H 93 O2 Del Method 03/18/22 11:40 03/18/22 11:11 Room Air 03/18/22 08:00 03/18/22 08:00 Room Air 03/18/22 07:55 Room Air 03/18/22 05:14 03/18/22 03:48 Room Air PG Care Time/CCT Total # of Minutes Spent Total Time Spent with Patient: Total time spent is greater than 50% in coordination of care (as documented) at patient's floor/unit and/or counseling patient: Coding Level of Care Code 51099 Subseq Hosp Care Lvl 3 Diagnoses Acute CVA (cerebrovascular accident) I63.9 Feeding difficulties R63.30 NAVEED (acute kidney injury) N17.9
--- NOTE | 2022-03-18 12:24 | Hospitalist Progress Note ---
Date of Service March 18, 2022 Assessment & Plan (1) Dysphagia: Plan: known issue at baseline even prior to this hospital stay multiple etiologies - prior CVAs, new/current CVA, esophageal stenosis (required dilation 07/2021), etc failed his bedside swallow and his video swallow on 03/05/22 NPO since then repeat video swallow 03/14 - essentially failed once again -- speech feels safest option is strict NPO with PEG placement Dr [place] [facility] [place] EGD 03/15; anatomy not suitable for PEG placement thus one not placed Gen surgery consulted for g-tube placement - to be placed Friday03/19/22 cont IV fluids but lower rate to 50cc/hr to avoid volume overload (2) Gout: Plan: right elbow (likely olecrenon bursitis). right hand, and right great toe. EMR shows prior h/o gout. son confirmed that his father has had gout numerous times in the past. polyarticular arthritis much improved today. s/p Solumedrol 20mg IV x 1 - 03/17. start solumedrol 10mg IV daily x 5 days today. (3) Stroke: Plan: Left basal ganglia/posterior limb of internal capsule. Thrombotic (off plavix recently) vs embolic etiology both possible (known a.fib, was off Eliquis for his recent sinus surgery). Appreciate neurology consult earlier in the stay. Continue PT, OT, speech therapy. Right arm weakness continues to improve. Speech has improved as well. Failed video swallow on 03/05/22. Failed video swallow again 03/14/22. NPO since. s/p coresafe NG tube placement 03/11 - unfortunately he self-removed 03/13. will leave Coresafe out due to technical difficulties we had with it last week. Cont heparin drip. Holding plavix. (4) Epistaxis: Plan: resolved none in several days afrin protocol prn for recurrent nosebleed cont heparin drip cautiously (5) Status post myringotomy with tube placement of both ears: Plan: 03/01/22 - s/p Bilateral Myringotomy and Tube Insertion, Image guided bilateral endoscopic sinus surgery with bilateral frontal, total ethmoid, and maxillary sinus antrostomies Dr Ge surgery performed due to chronic sinus issues/sinusitis, polyps, chronic OME b/l, etc. completed course of ofloxacin drops b/l ears twice daily as recommended by Dr Ge recent bloody otorrhea improved/resolved started rocephin due to concern of sinusitis with low-grade fevers, severe congestion, etc. -- day #6 of such plan 7 days cxr w/o definitive pneumonia (6) S/P nasal polypectomy: Plan: 03/01/[address] Ge 03/08/22 - Endoscopic Sinus Debridement - also by Dr Ge complete course of rocephin for probable sinusitis -- day #6 of 7 today (7) Atrial fibrillation: Plan: permanent / stable cont Heparin drip rates controlled with metoprolol 5mg IV q6h (8) Coronary artery disease: Plan: no ischemic symptoms resume statin, plavix when able (when G-tube placed) cont IV lopressor (9) Stage III chronic kidney disease: Plan: lasix on hold BMPs stable BMP again in am (10) DM type 2 (diabetes mellitus, type 2): Plan: stable cont lantus + novolog HbA1C 6.7% (11) HTN (hypertension): Plan: still uncontrolled despite hydralazine 10mg IV q8h + lopressor 5mg IV q6h add nitropatch 0.1mg once g-tube has been placed resume previous outpatient med regimen (12) Hypothyroid: Plan: resume levothyroxine 50 mcg daily when able most recent TSH wnl (2.3 in 09/2021) since he has been NPO for so long started IV synthroid q72h (13) Hyperlipidemia: Plan: resume statin when able (14) GERD (gastroesophageal reflux disease): Plan: Continue PPI IV EGD 03/15 without any upper GI path such as esophagitis, PUD, etc. (15) Memory impairment: Plan: 2nd to vascular disease h/o Parkinsonism resume Sinemet 0.5 mg TID when able cont IV thiamine (16) BPH (benign prostatic hyperplasia): Plan: with urinary retention s/p farley insertion resume alpha baldemar once g-tube is in place (17) Thrombocytopenia: Plan: chronic, typically runs low 100s however - on 03/14 and 03/16 his platelets were >150 repeat cbc in am to ensure stability for g-tube placement (18) Depression: Plan: Cymbalta remains on hold resume cymbalta or other med once g-tube is in place (19) B12 deficiency: Plan: resolved b12 level >1000 (20) Fever: Plan: suspected to be sinus source fevers resolved w/ rocephin day #6 rocephin 2gm daily to cover such cxr w/o pneumonia COVID testing negative urine culture negative plan 7 day course of rocephin (21) Kidney stones: Plan: seen on prior CT abd/pelvis if fevers recur consider repeat CT to ensure he has no obstructing stone -- but no abd pain or other features to suggest such (22) Schatzki's ring: Plan: s/p EGD dilatation 03/[address] Meng bobo PPI Plan DVT proph - heparin drip updated pt's son at bedside today Admission and Anticipated Discharge Date Admission Date: March 02, 2022 Subjective patient was working with therapy when I came to see him son was at bedside patient states that right elbow and right great toe pain are improved today he walked with therapy and then transferred into a chair patient continues with high BPs tele with a.fib, rates <100 has occasional cough patient is aware of g-tube placement tomorrow with surgery Review of Systems Review of Systems: CV - no cp pulm - mild SCALES GI - no pain, no nausea, no emesis - farley remains Physical Exam Physical Exam: gen - vocalizing like yesterday, communicating much better, asking questions, NAD; sitting in chair by bedside mouth - MM very dry, suspected thrush on tongue nose - no epistaxis either nare neck - no JVD heart - irregularly irregular, s1 s2, 1/6 systolic murmur RUSB lungs - CTA b/l, decreased BS bases abd - soft, BS+, NT, ND ext - no edema, pulses 2+ b/l; mild edema right arm neuro - right facial droop; expressive aphasia continues to improve; right arm strength 4-5/5 today; right leg 3-4/5; 5/5 left leg musculo - tenderness right olecrenon process much improved today; no elbow effusion and elbow joint itself is not tender; right great toe podagra improved; synovitis of several joints right hand fingers improved Results & Data Results & Data ([facility]) Vital Signs (Past 12 Hours) Vital Signs Temp Pulse Pulse Resp BP BP Pulse Ox 03/18/22 11:40 70 175/88 H 03/18/22 11:11 36.6 C 75 18 175/88 H 97 03/18/22 08:00 69 03/18/22 08:00 03/18/22 07:55 36.6 C 72 18 137/77 93 03/18/22 05:14 72 171/94 H 03/18/22 03:48 36.3 C L 72 16 171/94 H 93 O2 Del Method 03/18/22 11:40 03/18/22 11:11 Room Air 03/18/22 08:00 03/18/22 08:00 Room Air 03/18/22 07:55 Room Air 03/18/22 05:14 03/18/22 03:48 Room Air Laboratory Results Laboratory Results - last 24 hr 03/17/22 03/17/22 03/17/22 12:45 17:33 19:37 APTT 70.6 H* 61.3 H* PTT Ratio 2.6 2.2 Sodium Potassium Chloride Carbon Dioxide Anion Gap BUN Creatinine Est Cr Clr Drug Dosing Est GFR ( Amer) Est GFR (Non-Af Amer) BUN/Creatinine Ratio Glucose POC Glucose 140 H Calcium Phosphorus Magnesium 03/17/22 03/18/22 03/18/22 23:41 06:06 06:06 APTT 58.6 H* PTT Ratio 2.1 Sodium 135 L Potassium 4.3 Chloride 104 Carbon Dioxide 24 Anion Gap 7 BUN 10 Creatinine 1.02 Est Cr Clr Drug Dosing 61.8 Est GFR ( Amer) 76.8 Est GFR (Non-Af Amer) 66.2 BUN/Creatinine Ratio 9.8 L Glucose 202 H POC Glucose 193 H Calcium 9.3 Phosphorus 3.2 Magnesium 2.0 03/18/22 03/18/22 06:11 11:25 APTT PTT Ratio Sodium Potassium Chloride Carbon Dioxide Anion Gap BUN Creatinine Est Cr Clr Drug Dosing Est GFR ( Amer) Est GFR (Non-Af Amer) BUN/Creatinine Ratio Glucose POC Glucose 188 H 165 H Calcium Phosphorus Magnesium PG Care Time/CCT Total # of Minutes Spent Total Time Spent with Patient: Total time spent is greater than 50% in coordination of care (as documented) at patient's floor/unit and/or counseling patient: Coding Level of Care Code 35527 Subseq Hosp Care Lvl 3 Diagnoses Dysphagia R13.10 Gout M10.9 Stroke I63.9 Epistaxis R04.0 Status post myringotomy with tube placement of both ears Z96.22 S/P nasal polypectomy Z98.890 Atrial fibrillation I48.21 Atrial fibrillation type: permanent Coronary artery disease I25.10 Stage III chronic kidney disease N18.3 DM type 2 (diabetes mellitus, type 2) E11.9; Z79.4 Diabetes mellitus complication status: without complication Diabetes mellitus halfway insulin use: with terminal system operator use HTN (hypertension) I10 Hypothyroid E03.9 Hypothyroidism type: acquired Hyperlipidemia E78.2 Hyperlipidemia type: mixed hyperlipidemia GERD (gastroesophageal reflux disease) K21.9 Esophagitis presence: esophagitis presence not specified Memory impairment R41.3 BPH (benign prostatic hyperplasia) N40.0 Thrombocytopenia D69.6 Depression F32.9 B12 deficiency E53.8 Fever R50.9 Kidney stones N20.0 Schatzki's ring K22.2 (1) DM type 2 (diabetes mellitus, type 2) Diabetes mellitus complication status: without complication Diabetes mellitus terminal system operator insulin use: with halfway use Qualified Code(s): E11.9 - Type 2 diabetes mellitus without complications; Z79.4 - terminal computer operator (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
[2022-03-18] MEDS ORDERED: methylPREDNISolone 10 MG in SYRINGE 0 ML IV SCH (13:00)
[2022-03-18] MEDS: NITROGLYCERIN 0.1 MG/HR PATCH TD SCH (14:14)
[2022-03-18] MEDS: FLUCONAZOLE 100 MG/50 ML BAG IV SCH (15:16)
[2022-03-18] MEDS: ATORVASTATIN 40 MG TAB NG SCH (20:36)
[2022-03-18] MEDS: TAMSULOSIN HCL 0.4 MG CAP NG SCH (20:38)
[2022-03-19] MEDS: hydrALAZINE HCL 20 MG/ML VIAL IV SCH ×2 (05:25→15:05)
[2022-03-19] MEDS: METOPROLOL TARTRATE 1 MG/ML VIAL IV SCH ×2 (05:25→15:05)
[2022-03-19] MEDS: POTASSIUM CHLORIDE 20 MEQ in D5W AND LACTATED RINGERS 1,000 ML IV SCH ×2 (05:26→22:43)
[2022-03-19] MEDS: INSULIN ASPART PER UNIT SC SCH ×4 (06:06→23:39)
[2022-03-19 07:04] LABS: Hematocrit (blood only) 34.3 % (40.1-51.0); Hemoglobin 11.4 g/dl (14.0-18.0); Mean Corpuscular Hemoglobin 29.7 pg (25.0-34.0); Mean Corpuscular Hgb Conc 33.2 g/dL (32.0-36.0); Mean Corpuscular Volume 89.3 fL (80.0-100.0); Mean Platelet Volume 11.5 fL (9.4-12.4); Platelet Count 196 K/uL (130-400); RDW Standard Deviation 45.4 fL (36.4-46.3); Red Blood Count 3.84 M/uL (4.63-6.08); White Blood Count 7.66 K/ul (4.8-10.8)
[2022-03-19 07:13] LABS: Partial Thromboplastin Ratio 1.6
[2022-03-19 07:31] LABS: BUN Creatinine Ratio 10.1 (10-20); Calcium 9.2 mg/dl (8.5-10.1); Creatinine Clr Calc Pharmacy 58.6 ml/min; Est GFR (African American) 70.9 ml/min; Est GFR (Non-African American) 61.1 ml/min; Potassium 3.8 mmol/L (3.5-5.1)
[2022-03-19] MEDS: SODIUM CHLORIDE 0.65% NA SOLN 45 ML (OCEAN) SCH ×4 (07:36→17:24)
[2022-03-19] MEDS: CARBIDOPA/LEVODOPA 25/100MG TAB NG SCH ×2 (07:36→15:17)
[2022-03-19] MEDS: amLODIPine BESYLATE 5 MG TAB PO SCH (07:36)
[2022-03-19] MEDS: METOPROLOL TARTRATE 25 MG TAB OG SCH ×2 (07:37→21:31)
[2022-03-19] MEDS: DOCUSATE SODIUM SYRUP 100 MG/10 ML UDC NG SCH (07:37)
[2022-03-19] MEDS: CLOPIDOGREL BISULFATE 75 MG TAB PEG SCH (07:37)
[2022-03-19] MEDS: lisinopril 40 MG TAB PO SCH (07:37)
[2022-03-19] MEDS: CYANOCOBALAMIN (B-12) 500 MCG TABLET NG SCH (07:37)
[2022-03-19] MEDS: POLYETHYLENE (MIRALAX) 17 GM PACK NG SCH (07:38)
[2022-03-19] MEDS: PREGABALIN 100 MG CAP PO SCH ×3 (07:38→21:00)
[2022-03-19] MEDS: methylPREDNISolone 10 MG in SYRINGE 0 ML IV SCH (07:43)
[2022-03-19] MEDS: cefTRIAXone SODIUM 2,000 MG in DEXTROSE 5% 50 ML IV SCH (07:43)
[2022-03-19] MEDS: THIAMINE HCL 100 MG in SYRINGE 9 ML IV SCH (07:43)
[2022-03-19] MEDS: NITROGLYCERIN 0.1 MG/HR PATCH TD SCH (07:44)
[2022-03-19] MEDS: LANTUS PER UNIT CHARGE SQ SCH ×2 (07:55→21:32)
[2022-03-19] MEDS: LEVOTHYROXINE SODIUM 25 MCG in SYRINGE 0 ML IV SCH (09:35)
--- NOTE | 2022-03-19 10:14 | History & Physical Bridge Note ---
Date of Service March 19, 2022 History & Physical Bridge Note I have examined the patient, reviewed the History & Physical and in the interval since the performance of the History & Physical I have noted the following changes of clinical significance: Patient optimized for the procedure as discussed with primary service yesterday. Discussed options and risks with patient's son via telephone since he cannot be here... which include bleeding infection injury to a structure such as bowel, leakage around the tube or malfunction of the tube, DVT, PE, DC, CVA etc. Answered all their questions. We will proceed today with EGD with PEG tube placement possible laparoscopy assistance. pt and his son agreeable.
--- NOTE | 2022-03-19 10:17 | Anesthesiology Consultation ---
Date of Service March 19, 2022 Assessment & Plan (1) Encounter for pre-operative examination: Chart Review Chart Review: Acceptable Risk for Surgery and Patient NOT seen in Pre Admission Testing Consults Requested none History Surgery Operation Date: 03/08/22 09:55 Proposed Procedures p Endopscopic Sinus Debridement, Placement NG Tube Nasal using Endoscope - Britt Ge MD Operation Date: 03/15/22 16:30 Proposed Procedures p Esophagogastroduodenoscopy with Gastric Tube Placement Dr Fan - Candelario Fan DO Operation Date: 03/19/22 13:20 Proposed Procedures p Laparoscopic Assisted Gastric Tube Placement - Danilo Webb DO s Esophagogastroduodenoscopy - Danilo Webb DO Height/Weight Height: 5 ft 11 in Weight: 100 kg Allergies Allergy/AdvReac Type Severity Reaction Status Date / Time hydrocodone AdvReac Mild Dizziness, Verified 03/01/22 05:55 [From Panlor Nausea (hydrocodone-acetamin)] oxycodone AdvReac Mild N/V Verified 03/01/22 05:55 tramadol AdvReac Mild Confusion Verified 03/01/22 05:55 Medications Home Medications Medication Instructions Recorded Confirmed Last Taken apixaban 2.5 mg tablet (Eliquis) 2.5 mg PO BID #180 tabs 08/21/20 03/02/22 02/27/22 08:00 atorvastatin 80 mg tablet 80 mg PO HS #90 tabs 08/21/20 03/02/22 02/27/22 20:30 finasteride 5 mg tablet 5 mg PO QAM #90 tabs 08/21/20 03/02/22 02/28/22 08:00 levothyroxine 50 mcg tablet 50 mcg PO QAM #90 tabs 08/21/20 03/02/22 02/28/22 08:00 triamcinolone acetonide 0.1 % 1 applic topical BID #30 grams 10/02/20 03/01/22 05/04/21 08:00 topical cream glycerin 2 drp ophthalmic (eye) BID 10/17/20 03/02/22 02/28/22 08:00 blood sugar diagnostic (OneTouch #100 ea 10/18/20 02/22/22 Unknown Ultra Blue Test Strip) lancets 33 gauge (OneTouch Delica #100 ea 10/18/20 02/22/22 Unknown Plus Lancet) blood-glucose meter (OneTouch #1 ea 10/31/20 02/22/22 Unknown Ultra2 Meter) methylcellulose (with sugar) 2 2 g PO DAILY #454 grams 01/19/21 03/02/22 02/28/22 08:00 gram/19 gram oral powder (Fiber Therapy (methylcellulose-sugar)) pen needle, diabetic 32 gauge x #100 ea 02/15/21 02/22/22 Unknown 5/32" (BD Ultra-Fine Mary Carmen Pen Needle) famotidine 20 mg tablet 20 mg PO BID #60 tabs 03/28/21 03/02/22 02/28/22 08:00 docusate sodium 100 mg capsule 100 mg PO BID #60 caps 04/03/21 03/02/22 02/28/22 08:00 hydrocortisone 2.5 % topical cream 1 applic MI DAILY PRN hemorrhoids 04/09/21 03/02/22 Unknown with perineal applicator #30 grams pregabalin 100 mg capsule 100 mg PO TID #90 caps 04/19/21 03/02/22 02/28/22 08:00 diclofenac sodium 1 % topical gel 4 g topical QID PRN Pain 05/04/21 03/02/22 Unknown carbidopa 25 mg-levodopa 100 mg 0.5 tab PO TID #45 tabs 05/21/21 03/02/22 03/01/22 04:30 tablet (Sinemet) magnesium oxide 400 mg PO BID #60 tabs 06/04/21 03/02/22 02/28/22 08:00 clopidogrel 75 mg tablet 75 mg PO QAM #90 tabs 06/11/21 03/02/22 02/28/22 08:00 acetaminophen 325 mg tablet 650 mg PO QID PRN Pain 02/04/22 03/02/22 Unknown cyanocobalamin (vitamin B-12) 1,000 mcg PO DAILY 02/04/22 03/02/22 02/28/22 08:00 1,000 mcg tablet duloxetine 60 mg capsule,delayed 30 mg PO QAM 02/04/22 03/02/22 02/28/22 08:00 release furosemide 20 mg tablet 40 mg PO 3XWK 02/04/22 03/02/22 02/27/22 08:00 insulin NPH-regular 70-30 U-100 30 unit subcut BID 02/04/22 03/02/22 02/28/22 08:00 insulin 100 unit/mL subcutaneous pen (Novolin 70-30 FlexPen U-100 Insulin) insulin aspart U-100 100 unit/mL 1 sliding scale dose subcut 02/04/22 03/02/22 Unknown subcutaneous solution (Novolog USEASDIRECTD U-100 Insulin aspart) lisinopril 40 mg tablet 40 mg PO DAILY 02/04/22 03/02/22 02/28/22 08:00 magnesium hydroxide 800 mg/5 mL 7.75 mg PO DIRECTED PRN 02/04/22 03/02/22 Unknown oral suspension Constipation ondansetron HCl 4 mg tablet 4 mg PO Q8H PRN Nausea 02/04/22 03/02/22 Unknown pantoprazole 40 mg tablet,delayed 40 mg PO DAILY 02/04/22 03/02/22 02/28/22 08:00 release semaglutide 0.25 mg or 0.5 mg (2 0.5 mg subcut WK 02/04/22 03/02/22 02/26/22 08:00 mg/1.5 mL) subcutaneous pen injector (Ozempic) sodium phosphates 19 gram-7 118 ml MI DAILY PRN Constipation 02/04/22 03/02/22 Unknown gram/118 mL enema (Enema) ofloxacin 0.3 % ear drops 5 drp otic (ear) BID #5 mL 03/01/22 03/02/22 Unknown tramadol 50 mg tablet 50 mg PO Q8H PRN Pain #20 tabs 03/01/22 03/02/22 Unknown Active Medications Generic Name Dose Route Start Last Admin Trade Name Freq PRN Reason Stop Dose Admin Amlodipine Besylate 5 mg 03/09/22 16:15 03/19/22 07:36 Amlodipine Besylate 5 Mg Tab PO 04/08/22 16:14 Not Given QAM STEPH Atorvastatin Calcium 80 mg 03/08/22 21:00 03/18/22 20:36 Atorvastatin 40 Mg Tab NG 04/07/22 20:59 Not Given HS STEPH Carbidopa/Levodopa 0.5 tab 03/08/22 21:00 03/19/22 07:36 Carbidopa/Levodopa 25/100mg Tab NG 04/07/22 20:59 Not Given TID STEPH Clopidogrel Bisulfate 75 mg 03/09/22 09:00 03/19/22 07:37 Clopidogrel Bisulfate 75 Mg Tab PEG 04/08/22 08:59 Not Given QAM STEPH Cyanocobalamin 1,000 mcg 03/09/22 09:00 03/19/22 07:37 Cyanocobalamin (B-12) 500 Mcg Tablet NG 04/08/22 08:59 Not Given DAILY STEPH Docusate Sodium 100 mg 03/08/22 21:00 03/19/22 07:37 Docusate Sodium Syrup 100 Mg/10 Ml Udc NG 04/07/22 20:59 Not Given BID STEPH Enteral Nutritional Formula 1,000 ml 03/08/22 17:15 03/11/22 18:17 Fibersource Hn 1.2 Raul 1000 Ml Bag NG 04/07/22 17:14 10 ml UD STEPH Administration Protocol Hydralazine HCl 10 mg 03/10/22 08:08 03/15/22 03:03 Hydralazine Hcl 20 Mg/Ml Vial IV 04/03/22 21:59 10 mg Q8 PRN Administration SBP>180 Hydralazine HCl 10 mg 03/17/22 15:15 03/19/22 05:25 Hydralazine Hcl 20 Mg/Ml Vial IV 04/16/22 15:14 10 mg Q8 STEPH Administration Thiamine HCl 100 mg/ Syringe 10 mls @ 2 mls/min 03/12/22 09:00 03/19/22 07:43 IV 04/11/22 08:59 2 mls/min QAM STEPH Administration Potassium Chloride 20 meq/ 1,010 mls @ 50 mls/hr 03/12/22 11:30 03/19/22 05:26 Dextrose/Lactated Ringer's IV 04/11/22 11:29 70 mls/hr .[id number] STEPH Administration Ceftriaxone Sodium 2,000 mg/ 70 mls @ 100 mls/hr 03/13/22 11:00 03/19/22 09:22 Dextrose IV 03/23/22 10:59 Infused DAILY STEPH Infusion Protocol Heparin Sodium/Dextrose 25,000 units in 500 mls @ 20 mls/hr 03/15/22 20:15 03/19/22 05:23 Heparin Sodium/Dextrose IV 04/14/22 20:14 0 units/hr .Q24H STEPH 0 mls/hr Titration Protocol 1,000 UNITS/HR Levothyroxine Sodium 25 mcg/ 1.25 mls @ 2 mls/min 03/16/22 09:00 03/19/22 09:35 Syringe IV 04/15/22 08:59 2 mls/min Q72H STEPH Administration Protocol Pantoprazole Sodium 40 mg/ 10 mls @ 5 mls/min 03/16/22 11:00 03/18/22 11:16 Syringe IV 04/15/22 10:59 5 mls/min DAILY@1100 STEPH Administration Fluconazole 100 mg in 50 mls @ 100 mls/hr 03/17/22 16:00 03/18/22 22:15 Diflucan IV 03/23/22 16:29 Infused Q24H STEPH Infusion Protocol Methylprednisolone 10 mg/ 0.25 mls @ 1.5 mls/min 03/19/22 09:00 03/19/22 07:43 Syringe IV 03/22/22 09:01 1.5 mls/min DAILY STEPH Administration Insulin Aspart 0 units 03/04/22 06:00 03/19/22 06:06 Insulin Aspart Per Unit SC 04/03/22 05:59 Not Given Q6 STEPH Protocol Insulin Glargine 10 units 03/12/22 21:00 03/18/22 20:39 Lantus Per Unit Charge SQ 04/11/22 20:59 10 units HS STEPH Administration Insulin Glargine 10 units 03/13/22 10:45 03/19/22 07:55 Lantus Per Unit Charge SQ 04/12/22 10:44 10 units QAM STEPH Administration Lansoprazole 15 mg 03/09/22 09:00 03/15/22 07:10 Lansoprazole 15 Mg Soltab NG 04/08/22 08:59 Not Given QAM STEPH Levothyroxine Sodium 50 mcg 03/09/22 06:30 03/16/22 06:00 Levothyroxine Sodium 50 Mcg Tablet NG 04/08/22 06:29 Not Given DAILYBB STEPH Lisinopril 40 mg 03/09/22 09:00 03/19/22 07:37 Lisinopril 40 Mg Tab PO 04/08/22 08:59 Not Given QAM STEPH Metoprolol Tartrate 25 mg 03/13/22 21:00 03/19/22 07:37 Metoprolol Tartrate 25 Mg Tab OG 04/12/22 20:59 Not Given BID STEPH Metoprolol Tartrate 5 mg 03/14/22 16:15 03/19/22 05:25 Metoprolol Tartrate 1 Mg/Ml Vial IV 04/13/22 16:14 5 mg Q6 STEPH Administration Miscellaneous 1 each 03/18/22 21:00 03/18/22 20:38 Remove Nitro-Dur Patch N/A 04/17/22 20:59 1 each DAILY@2100 STEPH Administration Nitroglycerin 0.1 patch 03/18/22 13:00 03/19/22 07:44 Nitroglycerin 0.1 Mg/Hr Patch TD 04/17/22 12:59 0.1 patch QAM STEPH Administration Polyethylene Glycol 17 gm 03/09/22 09:00 03/19/22 07:38 Polyethylene (Miralax) 17 Gm Pack NG 04/08/22 08:59 Not Given DAILY STEPH Pregabalin 100 mg 03/02/22 14:40 03/19/22 07:38 Pregabalin 100 Mg Cap PO 04/01/22 14:39 Not Given TID STEPH Sodium Chloride 2 sprays 03/09/22 16:00 03/19/22 07:36 Sodium Chloride 0.65% Na Soln 45 Ml ([place]) NA 04/08/22 15:59 2 sprays [id number] STEPH Administration Sterile Water 100 ml 03/08/22 18:00 03/13/22 15:07 Tube Feeding Water Flush NG 04/07/22 17:59 Not Given Q4H STEPH Tamsulosin HCl 0.4 mg 03/08/22 21:00 03/18/22 20:38 Tamsulosin Hcl 0.4 Mg Cap NG 04/07/22 20:59 Not Given HS STEPH Past Medical History Medical History Abnormal tympanic membrane R/L Atrial fibrillation Paroxysmal BPH (benign prostatic hyperplasia) CKD (chronic kidney disease) Coronary artery disease s/p CABG (2010) Depression DM type 2 (diabetes mellitus, type 2) GERD (gastroesophageal reflux disease) Hearing deficit HTN (hypertension) Hyperlipidemia Hypothyroid Kidney stones LVH (left ventricular hypertrophy) Focal thickening of the basal septum with no evidence of LVOT obstruction, Mild asymmetric LVH per 12/2018 echo Major depressive disorder Memory impairment Myocardial Infarction 2004 [place] [facility] [place]. 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 Yates Transient hypotension Upper respiratory infection Vocal cord paralysis Patient awake and alert but difficult to converse 2/2 aphasia. (1) Dysphagia: Plan: known issue at baseline even prior to this hospital stay multiple etiologies - prior CVAs, new/current CVA, esophageal stenosis (required dilation 07/2021), etc failed his bedside swallow and his video swallow on 03/05/22 NPO since then repeat video swallow 03/14 - essentially failed once again -- speech feels safest option is strict NPO with PEG placement Dr Fan [place] [facility] performed EGD 03/15; anatomy not suitable for PEG placement thus one not placed Gen surgery consulted for g-tube placement - to be placed Friday03/19/22 (3) Stroke: Plan: Left basal ganglia/posterior limb of internal capsule. Thrombotic (off plavix recently) vs embolic etiology both possible (known a.mai, was off Eliquis for his recent sinus surgery). Right arm weakness continues to improve. Speech has improved as well. Past Family History Family History Father Diabetes Coronary heart disease Mother Diabetes Coronary heart disease Myocardial infarction Sister Breast cancer Brother Coronary heart disease Son Family history of diabetes mellitus Family/Other Family history of diabetes mellitus grandson Other No family history of adverse response to anesthesia Denies family history of Ovarian cancer Prostate cancer Colorectal cancer Past Surgical History Surgical History History of bilateral cataract extraction History of esophagogastroduodenoscopy (EGD) History of kidney surgery History of lithotripsy x2 History of lumbar laminectomy History of tooth extraction Hx [place] [place] Social History Smoking Status: Never smoker Hx Alcohol Use: No Hx Substance Use: No substance use type: does not use Physical Exam Vital Signs Last Vital Signs Temp 36.7 C 03/19/22 08:00 Pulse 76 03/19/22 08:00 Resp 18 03/19/22 08:00 BP 142/78 H 03/19/22 08:00 Pulse Ox 97 03/19/22 08:00 O2 Del Method 03/19/22 08:00 O2 Flow Rate 2 03/19/22 08:00 Testing Laboratory Results 03/19/22 05:51 03/19/22 05:51 PT 11.8 Seconds (9.0-12.0) 03/08/22 18:00 INR 1.1 (0.9-1.1) 03/08/22 18:00 APTT 45.0 Seconds (21.0-31.0) H 03/19/22 05:51 Hemoglobin A1c 6.7 % (4.5-5.6) H 03/03/22 06:38 Urine Color Yellow 03/12/22 15:25 Urine Appearance Clear (Clear) 03/12/22 15:25 Urine pH 7.5 (4.5-7.5) 03/12/22 15:25 Ur Specific [place] 1.006 (1.000-1.030) 03/12/22 15:25 Urine Protein Negative (Negative) 03/12/22 15:25 Urine Glucose (UA) Negative (Negative) 03/12/22 15:25 Urine Ketones Negative (Negative) 03/12/22 15:25 Urine Nitrite Negative (Negative) 03/12/22 15:25 Ur Leukocyte Esterase Trace (Negative) H 03/12/22 15:25 Urine WBC (Auto) 1-5 /hpf (0-5) 03/12/22 15:25 Urine RBC (Auto) 10-30 /hpf (0-4) H 03/12/22 15:25 U Hyaline Cast (Auto) 0 /lpf (0-5) 03/12/22 15:25 U Epithel Cells (Auto) 0-5 /lpf (0-5) 03/12/22 15:25 Urine Bacteria (Auto) Negative (Negative) 03/12/22 15:25 03/12/22 15:25 Urine Culture - Final Urine,Indwelling Cath No growth - less than 1,000 colonies/mL. 03/19/22 03/18/22 05:42 23:41 POC Glucose 129 H 184 H Electrocardiogram Date: 03/02/22 Atrial fibrillation, rate 74 bpm Abnormal ECG When compared with ECG of 10-AUG-2021 11:43, No significant change was found Confirmed by Romie Becerra ([id number]) on 03/03/2022 9:07:43 AM Chest X-Ray Date: 03/13/22 IMPRESSION: 1. The tip of the enteric tube projects over the distal esophagus. Repositioning is indicated. 2. Cardiomegaly with mild pulmonary vascular congestion. 3. No airspace consolidation or large pleural effusion is identified. Echocardiogram Date: 03/03/22 Compared with 01/10/19 study, mild progression of and LVH, otherwise no significant change The LV is normal in size LV systolic function is normal EF 60-65% LV wall motion is normal There is moderate concentric LVH Grade 1 diastolic dysfunction Mild valvular Mild to mod MR LA is mod dilated Cervical Spine Date: 10/17/20 IMPRESSION: No fracture or subluxation within the cervical spine. Mild facet degenerative changes seen throughout the cervical spine.
[2022-03-19] MEDS: PANTOprazole 40 MG in SYRINGE 0 ML IV SCH (11:37)
[2022-03-19] MEDS ORDERED: fentaNYL citrate 100 MCG/2 ML VIAL ONE (12:17)
[2022-03-19] MEDS ORDERED: PROPOFOL IV EMULSION 10 MG/ML 20 ML VIAL IV ONE ×3 (12:17→14:00)
[2022-03-19] MEDS ORDERED: ATROPINE SULFATE 0.1 MG/ML 10ML SYR IV PRN (12:29)
[2022-03-19] MEDS ORDERED: ONDANSETRON INJ 2 MG/ML 2 ML VIAL IV PRN (12:29)
[2022-03-19] MEDS ORDERED: fentaNYL citrate 100 MCG/2 ML VIAL IV PRN (12:29)
[2022-03-19] MEDS ORDERED: EPINEPHrine INJ 1 MG/ML AMP ONE (13:04)
[2022-03-19] MEDS ORDERED: BUPIVACAINE 0.5 % 5 MG/1 ML MPF 30ML VIAL ONE (13:04)
--- NOTE | 2022-03-19 13:53 | Operative Report ---
PG Post Operative Report Pre & Post Diagnosis Operation Date: 03/08/22 09:55 Pre-Op Diagnosis: Dysphagia Post-Op Diagnosis: Dysphagia Operation Date: 03/15/22 16:30 Pre-Op Diagnosis: CVA Post-Op Diagnosis: Hiatal Hernia, Schatzki's Ring Dilated to 18 mm, Not Canidate for Peg Tube Placement Operation Date: 03/19/22 13:20 Pre-Op Diagnosis: Acute cerebrovascular accident Feeding difficulties Acute kidney injury Post-Op Diagnosis: Acute cerebrovascular accident Feeding difficulties Acute kidney injury I identified the patient and participated in the time-out.: Yes Procedure Operation Date: 03/08/22 09:55 Actual Procedures p Endopscopic Sinus Debridement, Placement NasoGastric Tube Nasal using Endoscope(Not Applicable) - Britt Ge MD Operation Date: 03/15/22 16:30 Actual Procedures p EGD Dilatation - Candelario Fan DO Operation Date: 03/19/22 13:20 Actual Procedures p Gastric Tube Placement - Danilo Webb DO s Esophagogastroduodenoscopy - Danilo Webb DO Surgeon Danilo Webb DO Eyelet Cutter None Estimated Blood Loss 3 Findings Consistent with Post-Op Diagnosis Specimens none Anesthesia Type Local Description of Procedure After informed consent was obtained the patient was taken to the operating room and placed in supine position. IV sedation was administered by anesthesia and titrated to effect. After adequate sedation a bite block was placed. Gastroscope was inserted into the oropharynx and the proximal esophagus without difficulty. Keeping the lumen in view at all times scope was passed down in the stomach through the pylorus for second third portions of the duodenum. The scope withdrawn back into the distal stomach and retroflexed upon itself to evaluate the proximal stomach. We are able to easily transilluminate through the distal stomach through the anterior abdominal wall. This area of the abdominal wall was sterilely prepped and draped. Lidocaine was used to create a skin wheal and an area in the distal stomach. A small incision was made. A sheath with an access needle was advanced under direct vision into the lumen of the stomach on the first pass. A snare was used to grasp a guidewire which was then pulled out through the oropharynx. It was connected to the feeding tube itself which was then pulled bringing the gastric tube down into the stomach and out through the anterior abdominal wall. The tube was cut and connected to a feeding port with a securing button next to the skin. Skin level was at about 3 cm. A drain sponge was placed. Gastroscopy was reperformed verifying that the tube was in good position in the distal stomach which it was. The stomach was decompressed and the scope withdrawn. The patient was awakened and transferred to recovery in stable condition. I attest to the content of the Intraoperative Record and any orders documented therein. Any exceptions are noted below.
[2022-03-19] MEDS ORDERED: LIDOCAINE 2% 2 ML VIAL/AMP(20MG/ML) INFIL ONE (14:00)
--- NOTE | 2022-03-19 14:49 | Anesthesiology Progress Note ---
Date of Service March 19, 2022 Anesthesia Post Procedure Vital Signs Vital Signs: Temp Pulse Pulse Pulse Resp BP BP 03/19/22 14:30 88 20 143/82 H 03/19/22 14:20 36.6 C 82 13 157/79 H 03/19/22 14:10 83 20 141/81 H 03/19/22 14:00 109 H 22 103/70 03/19/22 13:54 36.5 C 106 H 19 118/91 03/19/22 12:26 36.8 C 81 16 135/67 03/19/22 08:00 70 03/19/22 08:00 03/19/22 08:00 36.7 C 76 82 18 142/78 H 03/19/22 05:25 71 168/77 H 03/19/22 03:00 37.0 C 65 15 141/72 H 03/19/22 01:19 73 03/19/22 01:07 03/18/22 23:44 77 131/80 03/18/22 23:35 36.8 C 77 16 131/80 03/18/22 20:05 36.6 C 69 18 135/83 03/18/22 18:09 76 146/89 H 03/18/22 15:57 36.6 C 76 18 146/89 H Pulse Ox O2 Del Method O2 Flow Rate 03/19/22 14:30 100 Nasal Cannula 2 03/19/22 14:20 100 Nasal Cannula 2 03/19/22 14:10 100 Oxymask 4 03/19/22 14:00 100 Oxymask 6 03/19/22 13:54 100 Oxymask 8 03/19/22 12:26 94 Room Air 03/19/22 08:00 03/19/22 08:00 Oxymask 2 03/19/22 08:00 97 03/19/22 05:25 03/19/22 03:00 95 Oxymask 2 03/19/22 01:19 03/19/22 01:07 Oxymask 2 03/18/22 23:44 03/18/22 23:35 94 Oxymask 2 03/18/22 20:05 90 Nasal Cannula 03/18/22 18:09 03/18/22 15:57 97 Room Air Transfer of Care Handoff Completed per policy Notes Mental Status: alert / awake / arousable Patient Amnestic to Procedure: Yes Nausea / Vomiting: adequately controlled Pain: adequately controlled Airway Patency, RR, SpO2: stable & adequate BP & HR: stable & adequate Hydration State: stable & adequate Anesthetic Complications: no major complications apparent
[2022-03-19] MEDS ORDERED: MoRPHine SULFATE 2 MG/ML CARP IV PRN (14:56)
[2022-03-19] MEDS ORDERED: hydrALAZINE HCL 20 MG/ML VIAL IV PRN (16:25)
[2022-03-19] MEDS ORDERED: ACETAMINOPHEN 1,000 MG/100 ML VIAL IV PRN (16:32)
[2022-03-19] MEDS ORDERED: ACETAMINOPHEN 1000 MG/100 ML IV IV ONE (16:38)
--- NOTE | 2022-03-19 16:38 | Hospitalist Progress Note ---
Date of Service March 19, 2022 Assessment & Plan (1) Dysphagia: Plan: known issue at baseline even prior to this hospital stay multiple etiologies - prior CVAs, new/current CVA, esophageal stenosis (required dilation 07/2021), etc failed his bedside swallow and his video swallow on 03/05/22 NPO since then repeat video swallow 03/14 - essentially failed once again -- speech feels safest option is strict NPO with PEG placement Dr Fan from [facility] performed EGD 03/15; anatomy not suitable for PEG placement thus one not placed Gen surgery consulted for g-tube placement -now s/p G-tube on 03/19/22 cont IV fluids D5LR 50cc/hr to avoid volume overload -restart tube feeds trickle and slowly increase -change all IV meds back to per GT now (2) Gout: Plan: right elbow (likely olecrenon bursitis). right hand, and right great toe. EMR shows prior h/o gout. son confirmed that his father has had gout numerous times in the past. polyarticular arthritis much improved today. s/p Solumedrol 20mg IV x 1 - 03/17. continue solumedrol 10mg IV daily x 5 days -last day will be 03/22 (3) Stroke: Plan: Left basal ganglia/posterior limb of internal capsule. Thrombotic (off plavix recently) vs embolic etiology both possible (known a.mai, was off Eliquis for his recent sinus surgery). Appreciate neurology consult earlier in the stay. Continue PT, OT, speech therapy. Right arm weakness continues to improve. Speech has improved as well. Failed video swallow on 03/05/22. Failed video swallow again 03/14/22. NPO since. s/p coresafe NG tube placement 03/11 - unfortunately he self-removed 03/13. now s/p G-tube 03/19 Cont heparin drip-restart this evening as per my d/w Surgery and then convert to Eliquis when safe from surgical standpoint. restart plavix in the AM. (4) Epistaxis: Plan: resolved none in several days afrin protocol prn for recurrent nosebleed cont heparin drip cautiously (5) Status post myringotomy with tube placement of both ears: Plan: 03/01/22 - s/p Bilateral Myringotomy and Tube Insertion, Image guided bilateral endoscopic sinus surgery with bilateral frontal, total ethmoid, and maxillary sinus antrostomies Dr Ge surgery performed due to chronic sinus issues/sinusitis, polyps, chronic OME b/l, etc. completed course of ofloxacin drops b/l ears twice daily as recommended by Dr Ge recent bloody otorrhea improved/resolved started rocephin due to concern of sinusitis with low-grade fevers, severe congestion, etc. --today day 7. No further fevers cxr w/o definitive pneumonia (6) S/P nasal polypectomy: Plan: 03/01/[address] Ge 03/08/22 - Endoscopic Sinus Debridement - also by Dr Ge complete course of rocephin for probable sinusitis -- day 7 today (7) Atrial fibrillation: Plan: permanent / stable cont Heparin drip rates controlled with metoprolol 5mg IV [id number] back to metoprolol per GT now and dc IV (8) Coronary artery disease: Plan: no ischemic symptoms resume statin, plavix now that G-tube placed resume metoprolol via GT (9) Stage III chronic kidney disease: Plan: lasix on hold BMPs stable BMP again in am (10) DM type 2 (diabetes mellitus, type 2): Plan: stable cont lantus + novolog HbA1C 6.7% (11) HTN (hypertension): Plan: Was still uncontrolled despite hydralazine 10mg IV q8h + lopressor 5mg IV q6h added nitropatch 0.1mg once g-tube has been placed , will now resume previous outpatient med regimen w/ lisinopril, metoprolol, amlodipine make hydralazine prn continue nitropatch for now (12) Hypothyroid: Plan: resume levothyroxine 50 mcg daily and dc IV most recent TSH wnl (2.3 in 09/2021) (13) Hyperlipidemia: Plan: resume statin (14) GERD (gastroesophageal reflux disease): Plan: change PPI IV to Prevacin per GT EGD 03/15 without any upper GI path such as esophagitis, PUD, etc. (15) Memory impairment: Plan: 2nd to vascular disease h/o Parkinsonism resume Sinemet 0.5 mg TID cont IV thiamine (16) BPH (benign prostatic hyperplasia): Plan: with urinary retention s/p farley insertion resume alpha baldemar once g-tube is in place (17) Thrombocytopenia: Plan: chronic, typically runs low 100s however - on 03/14 and 03/16 his platelets were >150 (18) Depression: Plan: Cymbalta remains on hold resume cymbalta or other med once g-tube is in place (19) B12 deficiency: Plan: resolved b12 level >1000 (20) Fever: Plan: suspected to be sinus source fevers resolved w/ rocephin day 7 rocephin 2gm daily today cxr w/o pneumonia COVID testing negative urine culture negative (21) Kidney stones: Plan: seen on prior CT abd/pelvis if fevers recur consider repeat CT to ensure he has no obstructing stone -- but no abd pain or other features to suggest such (22) Schatzki's ring: Plan: s/p EGD dilatation 03/[address] Fan cont PPI Plan DVT proph - heparin drip Dispo-improving--> plan to return to [facility] once tube feeds at goal and no refeeding syndrome, stable Admission and Anticipated Discharge Date Admission Date: March 02, 2022 Subjective Pt returned from getting his PEG. Has some pain with cough. 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 of Systems Review of Systems: All systems reviewed & are unremarkable except as noted in HPI & below Physical Exam Physical Exam: gen - NAD,Alert, awake, interactive, extremely hard of hearing mouth - dry tongue but tongue definitively smaller in size than last week HEENT -no epistaxis, OP clear neck - no JVD, trachea midline heart - irregularly irregular, s1 s2, 1-2/6 systolic murmur RUSB lungs - CTA b/l abd - BS+,no ttp, Farley catheter in place draining pink-tinged urine, GTube in place ext - no edema neuro - 4/5 strength in RLE, 4/5 RUE much improved, 5/5 otherwise, +right facial droop, dysarthria present but MUCH improved from previous Results & Data Results & Data ([facility]) Vital Signs (Past 12 Hours) Vital Signs Temp Pulse Pulse Pulse Resp BP BP 03/19/22 16:18 74 18 129/71 03/19/22 15:41 36.6 C 70 20 132/72 03/19/22 15:05 86 133/77 03/19/22 15:01 36.7 C 86 20 133/77 03/19/22 14:30 88 20 143/82 H 03/19/22 14:20 36.6 C 82 13 157/79 H 03/19/22 14:10 83 20 141/81 H 03/19/22 14:00 109 H 22 103/70 03/19/22 13:54 36.5 C 106 H 19 118/91 03/19/22 12:26 36.8 C 81 16 135/67 03/19/22 08:00 70 03/19/22 08:00 03/19/22 08:00 36.7 C 76 82 18 142/78 H 03/19/22 05:25 71 168/77 H Pulse Ox O2 Del Method O2 Flow Rate 03/19/22 16:18 99 Nasal Cannula 2 03/19/22 15:41 98 Nasal Cannula 2 03/19/22 15:05 03/19/22 15:01 98 Nasal Cannula 2 03/19/22 14:30 100 Nasal Cannula 2 03/19/22 14:20 100 Nasal Cannula 2 03/19/22 14:10 100 Oxymask 4 03/19/22 14:00 100 Oxymask 6 03/19/22 13:54 100 Oxymask 8 03/19/22 12:26 94 Room Air 03/19/22 08:00 03/19/22 08:00 Oxymask 2 03/19/22 08:00 97 03/19/22 05:25 Laboratory Results 03/19/22 03/19/22 03/19/22 Range/Units 13:56 12:08 05:51 WBC (4.8-10.8) K/ul RBC (4.63-6.08) M/uL Hgb (14.0-18.0) g/dl Hct (40.1-51.0) % MCV (80.0-100.0) fL MCH (25.0-34.0) pg MCHC (32.0-36.0) g/dL RDW Std Deviation (36.4-46.3) fL RDW Coeff of Eben (11.5-14.5) % Plt Count (130-400) K/uL MPV (9.4-12.4) fL APTT (21.0-31.0) Seconds PTT Ratio Sodium 137 (136-145) mmol/L Potassium 3.8 (3.5-5.1) mmol/L Chloride 106 (98-107) mmol/L Carbon Dioxide 25 (21-32) mmol/L Anion Gap 6 (3-11) BUN 11 (6-23) mg/dl Creatinine 1.09 (0.6-1.4) mg/dl Est Cr Clr Drug Dosing 58.6 ml/min Est GFR ( Amer) 70.9 ml/min Est GFR (Non-Af Amer) 61.1 ml/min BUN/Creatinine Ratio 10.1 (10-20) Glucose 141 H (70-99(Fasting)) mg/dl POC Glucose 208 H 195 H (70-99) mg/dl Calcium 9.2 (8.5-10.1) mg/dl 03/19/22 03/19/22 03/19/22 Range/Units 05:51 05:51 05:42 WBC 7.66 (4.8-10.8) K/ul RBC 3.84 L (4.63-6.08) M/uL Hgb 11.4 L (14.0-18.0) g/dl Hct 34.3 L (40.1-51.0) % MCV 89.3 (80.0-100.0) fL MCH 29.7 (25.0-34.0) pg MCHC 33.2 (32.0-36.0) g/dL RDW Std Deviation 45.4 (36.4-46.3) fL RDW Coeff of Eben 14.0 (11.5-14.5) % Plt Count 196 (130-400) K/uL MPV 11.5 (9.4-12.4) fL APTT 45.0 H (21.0-31.0) Seconds PTT Ratio 1.6 Sodium (136-145) mmol/L Potassium (3.5-5.1) mmol/L Chloride (98-107) mmol/L Carbon Dioxide (21-32) mmol/L Anion Gap (3-11) BUN (6-23) mg/dl Creatinine (0.6-1.4) mg/dl Est Cr Clr Drug Dosing ml/min Est GFR ( Amer) ml/min Est GFR (Non-Af Amer) ml/min BUN/Creatinine Ratio (10-20) Glucose (70-99(Fasting)) mg/dl POC Glucose 129 H (70-99) mg/dl Calcium (8.5-10.1) mg/dl 03/18/22 03/18/22 Range/Units 23:41 18:39 WBC (4.8-10.8) K/ul RBC (4.63-6.08) M/uL Hgb (14.0-18.0) g/dl Hct (40.1-51.0) % MCV (80.0-100.0) fL MCH (25.0-34.0) pg MCHC (32.0-36.0) g/dL RDW Std Deviation (36.4-46.3) fL RDW Coeff of Eben (11.5-14.5) % Plt Count (130-400) K/uL MPV (9.4-12.4) fL APTT (21.0-31.0) Seconds PTT Ratio Sodium (136-145) mmol/L Potassium (3.5-5.1) mmol/L Chloride (98-107) mmol/L Carbon Dioxide (21-32) mmol/L Anion Gap (3-11) BUN (6-23) mg/dl Creatinine (0.6-1.4) mg/dl Est Cr Clr Drug Dosing ml/min Est GFR ( Amer) ml/min Est GFR (Non-Af Amer) ml/min BUN/Creatinine Ratio (10-20) Glucose (70-99(Fasting)) mg/dl POC Glucose 184 H 199 H (70-99) mg/dl Calcium (8.5-10.1) mg/dl PG Care Time/CCT Total # of Minutes Spent Total Time Spent with Patient: Total time spent is greater than 50% in coordination of care (as documented) at patient's floor/unit and/or counseling patient: Coding Level of Care Code 28763 Subseq Hosp Care Lvl 3 Diagnoses Dysphagia R13.10 Gout M10.9 Stroke I63.9 Epistaxis R04.0 Status post myringotomy with tube placement of both ears Z96.22 S/P nasal polypectomy Z98.890 Atrial fibrillation I48.21 Atrial fibrillation type: permanent Coronary artery disease I25.10 Stage III chronic kidney disease N18.3 DM type 2 (diabetes mellitus, type 2) E11.9; Z79.4 Diabetes mellitus complication status: without complication 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 insulin use: with shelter use HTN (hypertension) I10 Hypothyroid E03.9 Hypothyroidism type: acquired Hyperlipidemia E78.2 Hyperlipidemia type: mixed hyperlipidemia GERD (gastroesophageal reflux disease) K21.9 Esophagitis presence: esophagitis presence not specified Memory impairment R41.3 BPH (benign prostatic hyperplasia) N40.0 Thrombocytopenia D69.6 Depression F32.9 B12 deficiency E53.8 Fever R50.9 Kidney stones N20.0 Schatzki's ring K22.2 (1) DM type 2 (diabetes mellitus, type 2) Diabetes mellitus complication status: without complication Diabetes mellitus shelter insulin use: with ocean transportation intermediary use Qualified Code(s): E11.9 - Type 2 diabetes mellitus without complications; 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
[2022-03-19] MEDS: FLUCONAZOLE 100 MG/50 ML BAG IV SCH (17:24)
[2022-03-19] MEDS: TUBE FEEDING WATER FLUSH NG SCH ×2 (18:38→21:32)
[2022-03-19] MEDS: FIBERSOURCE HN 1.2 CAL 1000 ML BAG NG SCH (18:50)
[2022-03-19] MEDS: TAMSULOSIN HCL 0.4 MG CAP PEG SCH (20:59)
[2022-03-19] MEDS: ATORVASTATIN 40 MG TAB GT SCH (21:29)
[2022-03-19] MEDS: CARBIDOPA/LEVODOPA 25/100MG TAB GT SCH (21:30)
[2022-03-19] MEDS: DOCUSATE SODIUM SYRUP 100 MG/10 ML UDC GT SCH (21:31)
[2022-03-19] MEDS: HEPARIN SODIUM/DEXTROSE 25,000 UNITS/500 ML BAG IV SCH (22:43)
[2022-03-20] MEDS: TUBE FEEDING WATER FLUSH NG SCH ×2 (01:57→05:57)
[2022-03-20 02:54] LABS: Partial Thromboplastin Ratio 1.7
[2022-03-20 02:55] LABS: Partial Thromboplastin Time 46.1 Seconds (21.0-31.0)
[2022-03-20] MEDS: INSULIN ASPART PER UNIT SC SCH ×4 (05:53→23:59)
[2022-03-20] MEDS: LEVOTHYROXINE SODIUM 50 MCG TABLET NG SCH (05:58)
[2022-03-20] MEDS: SODIUM CHLORIDE 0.65% NA SOLN 45 ML (OCEAN) SCH ×4 (05:58→15:46)
[2022-03-20 06:47] LABS: Basophils # (auto) 0.04 K/uL (0-0.2); Basophils % (auto) 0.5 %; Eosinophils # (auto) 0.07 K/uL (0-0.50); Eosinophils % (auto) 0.9 %; Hematocrit (blood only) 31.7 % (40.1-51.0); Hemoglobin 10.6 g/dl (14.0-18.0); Immature Granulocytes # (auto) 0.06 K/uL (0.00-0.02); Immature Granulocytes % (auto) 0.7 %; Lymphocytes # (auto) 1.73 K/uL (1.2-3.4); Lymphocytes % (auto) 21.4 %; Mean Corpuscular Hemoglobin 29.8 pg (25.0-34.0); Mean Corpuscular Hgb Conc 33.4 g/dL (32.0-36.0); Mean Platelet Volume 11.6 fL (9.4-12.4); Monocytes % (auto) 8.6 %; Neutrophils % (auto) 67.9 %; Platelet Count 183 K/uL (130-400); RDW Coefficient of Variation 13.7 % (11.5-14.5); Red Blood Count 3.56 M/uL (4.63-6.08)
[2022-03-20 07:07] LABS: Partial Thromboplastin Ratio 1.7
[2022-03-20 07:09] LABS: Albumin Globulin Ratio 1.1 (0.9-2); Albumin Level 3.2 gm/dl (3.4-5.0); BUN Creatinine Ratio 12.9 (10-20); Bilirubin,Total 0.6 mg/dl (0.2-1.0); Calcium 8.9 mg/dl (8.5-10.1); Creatinine Clr Calc Pharmacy 54.2 ml/min; Est GFR (African American) 65.7 ml/min; Est GFR (Non-African American) 56.7 ml/min; Globulin 2.9 gm/dl (2.5-4.0); Phosphorus 3.1 mg/dl (2.5-4.9); Potassium 3.7 mmol/L (3.5-5.1); Total Protein 6.1 gm/dl (6.0-8.3)
[2022-03-20 07:12] LABS: Partial Thromboplastin Time 47.7 Seconds (21.0-31.0)
[2022-03-20] MEDS ORDERED: POTASSIUM CHLORIDE 20 MEQ/15 ML UDC GT STA (07:53)
[2022-03-20] MEDS: HEPARIN SODIUM/DEXTROSE 25,000 UNITS/500 ML BAG IV SCH ×2 (09:09→23:09)
[2022-03-20] MEDS: THIAMINE HCL 100 MG TAB PEG SCH (09:11)
[2022-03-20] MEDS: CARBIDOPA/LEVODOPA 25/100MG TAB GT SCH ×3 (09:12→20:36)
[2022-03-20] MEDS: amLODIPine BESYLATE 5 MG TAB GT SCH (09:13)
[2022-03-20] MEDS: NITROGLYCERIN 0.1 MG/HR PATCH TD SCH (09:13)
[2022-03-20] MEDS: METOPROLOL TARTRATE 25 MG TAB OG SCH ×2 (09:13→20:38)
[2022-03-20] MEDS: CLOPIDOGREL BISULFATE 75 MG TAB PEG SCH (09:14)
[2022-03-20] MEDS: CYANOCOBALAMIN (B-12) 500 MCG TABLET GT SCH (09:14)
[2022-03-20] MEDS: lisinopril 40 MG TAB PO SCH (09:14)
[2022-03-20] MEDS: DOCUSATE SODIUM SYRUP 100 MG/10 ML UDC GT SCH ×2 (09:14→20:37)
[2022-03-20] MEDS: methylPREDNISolone 10 MG in SYRINGE 0 ML IV SCH (09:14)
[2022-03-20] MEDS: POLYETHYLENE (MIRALAX) 17 GM PACK GT SCH (09:15)
[2022-03-20] MEDS: LANTUS PER UNIT CHARGE SQ SCH ×2 (09:21→20:51)
[2022-03-20] MEDS: PREGABALIN 100 MG CAP PO SCH ×3 (09:21→20:41)
[2022-03-20] MEDS: cefTRIAXone SODIUM 2,000 MG in DEXTROSE 5% 50 ML IV SCH (09:28)
[2022-03-20] MEDS: TUBE FEEDING WATER FLUSH PEG SCH ×4 (09:46→20:37)
[2022-03-20] MEDS: LANSOPRAZOLE 15 MG SOLTAB NG SCH (10:42)
--- NOTE | 2022-03-20 12:03 | Surgery Progress Note ---
Date of Service March 20, 2022 Assessment & Plan (1) Acute CVA (cerebrovascular accident): Plan: POD#1 uncomplicated PEG tube placement difficult to converse with pt..but appears to have some mild discomfort related to either tube or abdominal binder okay to give pt breaks with abdominal binder if no concerns for pulling at tube PEG okay for use; he has been started on TEN and it is currently running at 20cc/hour We will sign off, please call if any questions/concerns (2) Feeding difficulties: Admission and Anticipated Discharge Date Admission Date: March 02, 2022 Subjective Lying in bed. Appears in no distress. A bit difficult to converse with given sequelae of recent stroke Physical Exam Physical Exam: awake, appears in no distress Gastrointestinal (Abdomen): Inspection/Auscultation: abdomen not distended Percussion/Palpation: + abdomen tender (some mild discomfort to palpation around g tube) and abdomen soft g tube in place, dressing dry Results & Data ([facility]) Vital Signs (Past 12 Hours) Vital Signs Temp Pulse Pulse Resp BP Pulse Ox O2 Del Method 03/20/22 11:50 36.6 C 65 18 152/79 H 99 Room Air 03/20/22 09:00 Room Air 03/20/22 06:05 70 03/20/22 08:02 36.9 C 68 16 106/63 94 Room Air 03/20/22 02:00 37.0 C 68 17 115/56 L 96 Oxymask O2 Flow Rate 03/20/22 11:50 03/20/22 09:00 03/20/22 06:05 03/20/22 08:02 03/20/22 02:00 2 PG Care Time/CCT Total # of Minutes Spent Total Time Spent with Patient: Total time spent is greater than 50% in coordination of care (as documented) at patient's floor/unit and/or counseling patient: Coding Level of Care Code None Diagnoses Acute CVA (cerebrovascular accident) I63.9 Feeding difficulties R63.30
--- NOTE | 2022-03-20 14:56 | Hospitalist Progress Note ---
Date of Service March 20, 2022 Assessment & Plan (1) Dysphagia: Plan: known issue at baseline even prior to this hospital stay multiple etiologies - prior CVAs, new/current CVA, esophageal stenosis (required dilation 07/2021), etc failed his bedside swallow and his video swallow on 03/05/22 NPO since then repeat video swallow 03/14 - essentially failed once again -- speech feels safest option is strict NPO with PEG placement Dr Fan from [facility] performed EGD 03/15; anatomy not suitable for PEG placement thus one not placed Gen surgery consulted for g-tube placement -now s/p G-tube on 03/19/22 cont IV fluids D5LR 50cc/hr to avoid volume overload and tube feeds titrating up to goal of 70 mL/hr -continue tube feeds trickle and slowly increase (2) Gout: Plan: right elbow (likely olecrenon bursitis). right hand, and right great toe. EMR shows prior h/o gout. son confirmed that his father has had gout numerous times in the past. polyarticular arthritis now resolved, no pain s/p Solumedrol 20mg IV x 1 - 03/17. continue solumedrol 10mg IV daily x 5 days -last day will be 03/22 (3) Stroke: Plan: Left basal ganglia/posterior limb of internal capsule. Thrombotic (off plavix recently) vs embolic etiology both possible (known aalmaz, was off Eliquis for his recent sinus surgery). Appreciate neurology consult earlier in the stay. Continue PT, OT, speech therapy. Right arm weakness continues to improve. Speech has improved as well. Failed video swallow on 03/05/22. Failed video swallow again 03/14/22. NPO since. s/p coresafe NG tube placement 03/11 - unfortunately he self-removed 03/13. now s/p G-tube 03/19 Cont heparin drip-and then convert to Eliquis when safe from surgical standpoint-will wait till 48 hrs post op continue plavix (4) Epistaxis: Plan: resolved none in many days afrin protocol prn for recurrent nosebleed cont heparin drip cautiously (5) Status post myringotomy with tube placement of both ears: Plan: 03/01/22 - s/p Bilateral Myringotomy and Tube Insertion, Image guided bilateral endoscopic sinus surgery with bilateral frontal, total ethmoid, and maxillary sinus antrostomies Dr Ge surgery performed due to chronic sinus issues/sinusitis, polyps, chronic OME b/l, etc. completed course of ofloxacin drops b/l ears twice daily as recommended by Dr Ge recent bloody otorrhea improved/resolved started rocephin due to concern of sinusitis with low-grade fevers, severe congestion, etc. --today day 8. No further fevers cxr w/o definitive pneumonia (6) S/P nasal polypectomy: Plan: 03/01/[address] Ge 03/08/22 - Endoscopic Sinus Debridement - also by Dr Ge complete course of rocephin for probable sinusitis -- day 03/06 today (7) Atrial fibrillation: Plan: permanent / stable cont Heparin drip rates controlled -continue metoprolol per GT (8) Coronary artery disease: Plan: no ischemic symptoms continue statin, plavix, and metoprolol via GT (9) Stage III chronic kidney disease: Plan: lasix on hold BMPs stable BMP again in am (10) DM type 2 (diabetes mellitus, type 2): Plan: stable cont lantus + novolog HbA1C 6.7% (11) HTN (hypertension): Plan: BPs now controlled -continue lisinopril, metoprolol, amlodipine - hydralazine prn continue nitropatch (started while without meds through GT) for now but can likely dc tomorrow (12) Hypothyroid: Plan: continue levothyroxine 50 mcg daily most recent TSH wnl (2.3 in 09/2021) (13) Hyperlipidemia: Plan: continue statin (14) GERD (gastroesophageal reflux disease): Plan: continue Prevacid per [facility] EGD 03/15 without any upper GI path such as esophagitis, PUD, etc. (15) Memory impairment: Plan: 2nd to vascular disease h/o Parkinsonism continue Sinemet 0.5 mg TID cont thiamine but convert to po (16) BPH (benign prostatic hyperplasia): Plan: with urinary retention s/p farley insertion continue Flomax started this admission (17) Thrombocytopenia: Plan: chronic, typically runs low 100s however - on 03/14 and 03/16 his platelets were >150 (18) Depression: Plan: Cymbalta remains on hold resume cymbalta now that g-tube is in place (19) B12 deficiency: Plan: resolved b12 level >1000 (20) Fever: Plan: suspected to be sinus source fevers resolved w/ rocephin day 8 rocephin 2gm daily -complete on 03/22 cxr w/o pneumonia COVID testing negative urine culture negative (21) Kidney stones: Plan: seen on prior CT abd/pelvis if fevers recur consider repeat CT to ensure he has no obstructing stone -- but no abd pain or other features to suggest such (22) Schatzki's ring: Plan: s/p EGD dilatation 03/[address] Fan cont PPI Plan DVT proph - heparin drip Dispo-improving--> plan to return to [facility] once tube feeds at goal and no refeeding syndrome, stable-hopefully in 2-3 days Admission and Anticipated Discharge Date Admission Date: March 02, 2022 Subjective Pt has no complaints. Was c/o the abdominal binder being tight earlier and nurse released it and keeping close eye to make sure he doesn't pull out the G tube. He denies pain to me. Review of Systems Review of Systems: All systems reviewed & are unremarkable except as noted in HPI & below Physical Exam Physical Exam: gen - NAD,Alert, awake, interactive, extremely hard of hearing mouth - dry tongue but tongue definitively smaller in size than last week HEENT -no epistaxis, OP clear neck - no JVD, trachea midline heart - irregularly irregular, s1 s2, 1-2/6 systolic murmur RUSB lungs - CTA b/l abd - BS+,no ttp, Farley catheter in place draining clear yellow urine, GTube in place ext - no edema neuro - 4/5 strength in RLE, 4/5 RUE much improved, 5/5 otherwise, +right facial droop, dysarthria present but MUCH improved from previous Results & Data Results & Data ([facility]) Vital Signs (Past 12 Hours) Vital Signs Temp Pulse Pulse Resp BP Pulse Ox O2 Del Method 03/20/22 11:50 36.6 C 65 18 152/79 H 99 Room Air 03/20/22 09:00 Room Air 03/20/22 06:05 70 03/20/22 08:02 36.9 C 68 16 106/63 94 Room Air Laboratory Results 08/24/22 08/24/22 08/24/22 Range/Units 11:14 05:47 05:47 WBC (4.8-10.8) K/ul RBC (4.63-6.08) M/uL Hgb (14.0-18.0) g/dl Hct (40.1-51.0) % MCV (80.0-100.0) fL MCH (25.0-34.0) pg MCHC (32.0-36.0) g/dL RDW Std Deviation (36.4-46.3) fL RDW Coeff of Eben (11.5-14.5) % Plt Count (130-400) K/uL MPV (9.4-12.4) fL Immature Gran % (Auto) % Neut % (Auto) % Lymph % (Auto) % Ceiba % (Auto) % Eos % (Auto) % Baso % (Auto) % Neut # (Auto) (1.4-6.5) K/uL Lymph # (Auto) (1.2-3.4) K/uL Ceiba # (Auto) (0.24-0.82) K/uL Eos # (Auto) (0-0.50) K/uL Baso # (Auto) (0-0.2) K/uL Immature Gran # (Auto) (0.00-0.02) K/uL APTT 47.7 H* (21.0-31.0) Seconds PTT Ratio 1.7 Sodium 137 (136-145) mmol/L Potassium 3.7 (3.5-5.1) mmol/L Chloride 106 (98-107) mmol/L Carbon Dioxide 25 (21-32) mmol/L Anion Gap 6 (3-11) BUN 15 (6-23) mg/dl Creatinine 1.16 (0.6-1.4) mg/dl Est Cr Clr Drug Dosing 54.2 ml/min Est GFR ( Amer) 65.7 ml/min Est GFR (Non-Af Amer) 56.7 ml/min BUN/Creatinine Ratio 12.9 (10-20) Glucose 150 H (70-99(Fasting)) mg/dl POC Glucose 157 H (70-99) mg/dl Calcium 8.9 (8.5-10.1) mg/dl Phosphorus 3.1 (2.5-4.9) mg/dl Magnesium 2.0 (1.7-2.4) mg/dl Total Bilirubin 0.6 (0.2-1.0) mg/dl AST 22 (13-39) U/L ALT 10 (7-52) U/L Alkaline Phosphatase 64 (34-104) U/L Total Protein 6.1 (6.0-8.3) gm/dl Albumin 3.2 L (3.4-5.0) gm/dl Globulin 2.9 (2.5-4.0) gm/dl Albumin/Globulin Ratio 1.1 (0.9-2) 03/20/22 03/20/22 03/20/22 Range/Units 05:47 05:16 01:55 WBC 8.10 (4.8-10.8) K/ul RBC 3.56 L (4.63-6.08) M/uL Hgb 10.6 L (14.0-18.0) g/dl Hct 31.7 L (40.1-51.0) % MCV 89.0 (80.0-100.0) fL MCH 29.8 (25.0-34.0) pg MCHC 33.4 (32.0-36.0) g/dL RDW Std Deviation 45.0 (36.4-46.3) fL RDW Coeff of Eben 13.7 (11.5-14.5) % Plt Count 183 (130-400) K/uL MPV 11.6 (9.4-12.4) fL Immature Gran % (Auto) 0.7 % Neut % (Auto) 67.9 % Lymph % (Auto) 21.4 % Ceiba % (Auto) 8.6 % Eos % (Auto) 0.9 % Baso % (Auto) 0.5 % Neut # (Auto) 5.50 (1.4-6.5) K/uL Lymph # (Auto) 1.73 (1.2-3.4) K/uL Ceiba # (Auto) 0.70 (0.24-0.82) K/uL Eos # (Auto) 0.07 (0-0.50) K/uL Baso # (Auto) 0.04 (0-0.2) K/uL Immature Gran # (Auto) 0.06 H (0.00-0.02) K/uL APTT 46.1 H* (21.0-31.0) Seconds PTT Ratio 1.7 Sodium (136-145) mmol/L Potassium (3.5-5.1) mmol/L Chloride (98-107) mmol/L Carbon Dioxide (21-32) mmol/L Anion Gap (3-11) BUN (6-23) mg/dl Creatinine (0.6-1.4) mg/dl Est Cr Clr Drug Dosing ml/min Est GFR ( Amer) ml/min Est GFR (Non-Af Amer) ml/min BUN/Creatinine Ratio (10-20) Glucose (70-99(Fasting)) mg/dl POC Glucose 150 H (70-99) mg/dl Calcium (8.5-10.1) mg/dl Phosphorus (2.5-4.9) mg/dl Magnesium (1.7-2.4) mg/dl Total Bilirubin (0.2-1.0) mg/dl AST (13-39) U/L ALT (7-52) U/L Alkaline Phosphatase (34-104) U/L Total Protein (6.0-8.3) gm/dl Albumin (3.4-5.0) gm/dl Globulin (2.5-4.0) gm/dl Albumin/Globulin Ratio (0.9-2) 03/19/22 03/19/22 Range/Units 23:36 18:03 WBC (4.8-10.8) K/ul RBC (4.63-6.08) M/uL Hgb (14.0-18.0) g/dl Hct (40.1-51.0) % MCV (80.0-100.0) fL MCH (25.0-34.0) pg MCHC (32.0-36.0) g/dL RDW Std Deviation (36.4-46.3) fL RDW Coeff of Eben (11.5-14.5) % Plt Count (130-400) K/uL MPV (9.4-12.4) fL Immature Gran % (Auto) % Neut % (Auto) % Lymph % (Auto) % Ceiba % (Auto) % Eos % (Auto) % Baso % (Auto) % Neut # (Auto) (1.4-6.5) K/uL Lymph # (Auto) (1.2-3.4) K/uL Ceiba # (Auto) (0.24-0.82) K/uL Eos # (Auto) (0-0.50) K/uL Baso # (Auto) (0-0.2) K/uL Immature Gran # (Auto) (0.00-0.02) K/uL APTT (21.0-31.0) Seconds PTT Ratio Sodium (136-145) mmol/L Potassium (3.5-5.1) mmol/L Chloride (98-107) mmol/L Carbon Dioxide (21-32) mmol/L Anion Gap (3-11) BUN (6-23) mg/dl Creatinine (0.6-1.4) mg/dl Est Cr Clr Drug Dosing ml/min Est GFR ( Amer) ml/min Est GFR (Non-Af Amer) ml/min BUN/Creatinine Ratio (10-20) Glucose (70-99(Fasting)) mg/dl POC Glucose 204 H 177 H (70-99) mg/dl Calcium (8.5-10.1) mg/dl Phosphorus (2.5-4.9) mg/dl Magnesium (1.7-2.4) mg/dl Total Bilirubin (0.2-1.0) mg/dl AST (13-39) U/L ALT (7-52) U/L Alkaline Phosphatase (34-104) U/L Total Protein (6.0-8.3) gm/dl Albumin (3.4-5.0) gm/dl Globulin (2.5-4.0) gm/dl Albumin/Globulin Ratio (0.9-2) PG Care Time/CCT Total # of Minutes Spent Total Time Spent with Patient: Total time spent is greater than 50% in coordination of care (as documented) at patient's floor/unit and/or counseling patient: Coding Level of Care Code 99679 Subseq Hosp Care Lvl 2 Diagnoses Dysphagia R13.10 Gout M10.9 Stroke I63.9 Epistaxis R04.0 Status post myringotomy with tube placement of both ears Z96.22 S/P nasal polypectomy Z98.890 Atrial fibrillation I48.21 Atrial fibrillation type: permanent Coronary artery disease I25.10 Stage III chronic kidney disease N18.3 DM type 2 (diabetes mellitus, type 2) E11.9; Z79.4 Diabetes mellitus fdc insulin use: with fdc use Diabetes mellitus complication status: without complication HTN (hypertension) I10 Hypothyroid E03.9 Hypothyroidism type: acquired Hyperlipidemia E78.2 Hyperlipidemia type: mixed hyperlipidemia GERD (gastroesophageal reflux disease) K21.9 Esophagitis presence: esophagitis presence not specified Memory impairment R41.3 BPH (benign prostatic hyperplasia) N40.0 Thrombocytopenia D69.6 Depression F32.9 B12 deficiency E53.8 Fever R50.9 Kidney stones N20.0 Schatzki's ring K22.2 (1) Atrial fibrillation Atrial fibrillation type: permanent Qualified Code(s): I48.21 - Permanent atrial fibrillation (2) DM type 2 (diabetes mellitus, type 2) 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
[2022-03-20] MEDS: FLUCONAZOLE 100 MG/50 ML BAG IV SCH (15:45)
[2022-03-20] MEDS: ATORVASTATIN 40 MG TAB GT SCH (20:37)
[2022-03-20] MEDS: TAMSULOSIN HCL 0.4 MG CAP PEG SCH (20:37)
[2022-03-21] MEDS: TUBE FEEDING WATER FLUSH PEG SCH ×6 (01:50→20:34)
[2022-03-21] MEDS: POTASSIUM CHLORIDE 20 MEQ in D5W AND LACTATED RINGERS 1,000 ML IV SCH ×2 (01:50→12:34)
[2022-03-21] MEDS: INSULIN ASPART PER UNIT SC SCH ×3 (06:01→17:42)
[2022-03-21] MEDS: LEVOTHYROXINE SODIUM 50 MCG TABLET NG SCH (06:01)
[2022-03-21] MEDS: SODIUM CHLORIDE 0.65% NA SOLN 45 ML (OCEAN) SCH ×4 (06:02→16:43)
[2022-03-21 06:23] LABS: Basophils # (auto) 0.04 K/uL (0-0.2); Basophils % (auto) 0.6 %; Eosinophils # (auto) 0.05 K/uL (0-0.50); Eosinophils % (auto) 0.7 %; Hematocrit (blood only) 32.3 % (40.1-51.0); Hemoglobin 10.7 g/dl (14.0-18.0); Immature Granulocytes # (auto) 0.04 K/uL (0.00-0.02); Immature Granulocytes % (auto) 0.6 %; Lymphocytes # (auto) 1.51 K/uL (1.2-3.4); Lymphocytes % (auto) 21.1 %; Mean Corpuscular Hemoglobin 29.6 pg (25.0-34.0); Mean Corpuscular Hgb Conc 33.1 g/dL (32.0-36.0); Mean Corpuscular Volume 89.5 fL (80.0-100.0); Mean Platelet Volume 11.4 fL (9.4-12.4); Monocytes # (auto) 0.61 K/uL (0.24-0.82); Monocytes % (auto) 8.5 %; Neutrophils # (auto) 4.89 K/uL (1.4-6.5); Neutrophils % (auto) 68.5 %; Platelet Count 152 K/uL (130-400); RDW Coefficient of Variation 13.7 % (11.5-14.5); RDW Standard Deviation 44.7 fL (36.4-46.3); Red Blood Count 3.61 M/uL (4.63-6.08); White Blood Count 7.14 K/ul (4.8-10.8)
[2022-03-21 06:45] LABS: Albumin Globulin Ratio 1.1 (0.9-2); Albumin Level 3.1 gm/dl (3.4-5.0); BUN Creatinine Ratio 13.9 (10-20); Bilirubin,Total 0.5 mg/dl (0.2-1.0); Calcium 8.9 mg/dl (8.5-10.1); Creatinine Clr Calc Pharmacy 61.9 ml/min; Est GFR (African American) 77.7 ml/min; Globulin 2.8 gm/dl (2.5-4.0); Phosphorus 2.9 mg/dl (2.5-4.9); Potassium 3.8 mmol/L (3.5-5.1); Total Protein 5.9 gm/dl (6.0-8.3)
[2022-03-21 07:01] LABS: Partial Thromboplastin Time 56.2 Seconds (21.0-31.0)
[2022-03-21] MEDS: CYANOCOBALAMIN (B-12) 500 MCG TABLET GT SCH (08:48)
[2022-03-21] MEDS: DOCUSATE SODIUM SYRUP 100 MG/10 ML UDC GT SCH ×2 (08:48→20:32)
[2022-03-21] MEDS: METOPROLOL TARTRATE 25 MG TAB OG SCH ×2 (08:48→20:33)
[2022-03-21] MEDS: methylPREDNISolone 10 MG in SYRINGE 0 ML IV SCH (08:48)
[2022-03-21] MEDS: CARBIDOPA/LEVODOPA 25/100MG TAB GT SCH ×3 (08:49→20:33)
[2022-03-21] MEDS: lisinopril 40 MG TAB PO SCH (08:49)
[2022-03-21] MEDS: CLOPIDOGREL BISULFATE 75 MG TAB PEG SCH (08:49)
[2022-03-21] MEDS: amLODIPine BESYLATE 5 MG TAB GT SCH (08:50)
[2022-03-21] MEDS: LANSOPRAZOLE 15 MG SOLTAB NG SCH (08:50)
[2022-03-21] MEDS: POLYETHYLENE (MIRALAX) 17 GM PACK GT SCH (08:50)
[2022-03-21] MEDS: NITROGLYCERIN 0.1 MG/HR PATCH TD SCH (08:51)
[2022-03-21] MEDS: LANTUS PER UNIT CHARGE SQ SCH (08:52)
[2022-03-21] MEDS: THIAMINE HCL 100 MG TAB PEG SCH (08:52)
[2022-03-21] MEDS: PREGABALIN 100 MG CAP PO SCH ×3 (08:59→20:37)
[2022-03-21] MEDS ORDERED: DULoxetine HCL 20 MG CAP PO SCH (09:00)
[2022-03-21] MEDS: cefTRIAXone SODIUM 2,000 MG in DEXTROSE 5% 50 ML IV SCH (09:05)
[2022-03-21] MEDS: FIBERSOURCE HN 1.2 CAL 1000 ML BAG GT SCH (16:42)
[2022-03-21] MEDS: FLUCONAZOLE 100 MG/50 ML BAG IV SCH (16:42)
--- NOTE | 2022-03-21 19:01 | Hospitalist Progress Note ---
Date of Service March 21, 2022 Assessment & Plan (1) Dysphagia: Plan: known issue at baseline even prior to this hospital stay multiple etiologies - prior CVAs, new/current CVA, esophageal stenosis (required dilation 07/2021), etc failed his bedside swallow and his video swallow on 03/05/22 NPO since then repeat video swallow 03/14 - essentially failed once again -- speech feels safest option is strict NPO with PEG placement Dr Fan from [facility] performed EGD 03/15; anatomy not suitable for PEG placement thus one not placed Gen surgery consulted for g-tube placement -now s/p G-tube on 03/19/22 -continue to titrate up to goal on tube feeds - goal of 70 mL/hr currently at 50mL/hr -dc maintenance IVFs (2) Gout: Plan: right elbow (likely olecrenon bursitis). right hand, and right great toe. EMR shows prior h/o gout. son confirmed that his father has had gout numerous times in the past. was improved but persists now in right elbow and right great toe convert Solu Medrol 10mg to prednisone 20mg daily through [facility] x 5 more days continue rocephin for olecrenon bursitis as well-offload pressure to right elbow (3) Stroke: Plan: Left basal ganglia/posterior limb of internal capsule. Thrombotic (off plavix recently) vs embolic etiology both possible (known a.mai, was off Eliquis for his recent sinus surgery). Appreciate neurology consult earlier in the stay. Continue PT, OT, speech therapy. Right arm weakness continues to improve. Speech has improved as well. Failed video swallow on 03/05/22. Failed video swallow again 03/14/22. NPO since. s/p coresafe NG tube placement 03/11 - unfortunately he self-removed 03/13. now s/p G-tube 03/19 ok now to convert heparin drip back to Eliquis now 2 days post-op from G tube continue plavix (4) Epistaxis: Plan: resolved none in many days afrin protocol prn for recurrent nosebleed (5) Status post myringotomy with tube placement of both ears: Plan: 03/01/22 - s/p Bilateral Myringotomy and Tube Insertion, Image guided bilateral en doscopic sinus surgery with bilateral frontal, total ethmoid, and maxillary sinus antrostomies Dr Ge surgery performed due to chronic sinus issues/sinusitis, polyps, chronic OME b/l, etc. completed course of ofloxacin drops b/l ears twice daily as recommended by Dr Ge recent bloody otorrhea improved/resolved started rocephin due to concern of sinusitis with low-grade fevers, severe congestion, etc. --today day 9. No further fevers cxr w/o definitive pneumonia (6) S/P nasal polypectomy: Plan: 03/01/[address] Ge 03/08/22 - Endoscopic Sinus Debridement - also by Dr Ge complete course of rocephin for probable sinusitis -- day 9/ today (7) Atrial fibrillation: Plan: permanent / stable switch Heparin drip to ELiquis rates controlled -continue metoprolol per GT (8) Coronary artery disease: Plan: no ischemic symptoms continue statin, plavix, and metoprolol via [facility] (9) Stage III chronic kidney disease: Plan: lasix on hold BMPs stable BMP again in am (10) DM type 2 (diabetes mellitus, type 2): Plan: with hyperglycemia now from steroids cont lantus but increase to 15 units in PM + novolog HbA1C 6.7% (11) HTN (hypertension): Plan: BPs now controlled -continue lisinopril, metoprolol, amlodipine - hydralazine prn discontinue nitropatch (started while without meds through [facility]) can increase amlodipine to 10mg if needed (12) Hypothyroid: Plan: continue levothyroxine 50 mcg daily most recent TSH wnl (2.3 in 09/2021) (13) Hyperlipidemia: Plan: continue statin (14) GERD (gastroesophageal reflux disease): Plan: continue Prevacid per [facility] EGD 03/15 without any upper GI path such as esophagitis, PUD, etc. (15) Memory impairment: Plan: 2nd to vascular disease h/o Parkinsonism continue Sinemet 0.5 mg TID cont thiamine (16) BPH (benign prostatic hyperplasia): Plan: with urinary retention s/p farley insertion continue Flomax started this admission (17) Thrombocytopenia: Plan: chronic, typically runs low 100s however - on 03/14 and 03/16 his platelets were >150 (18) Depression: Plan: Cymbalta not compatible with GT feedings has been off of this for weeks now won't restart for now (19) B12 deficiency: Plan: resolved b12 level >1000 (20) Fever: Plan: suspected to be sinus source fevers resolved w/ rocephin day 9 rocephin 2gm daily -complete on 03/22 cxr w/o pneumonia COVID testing negative urine culture negative (21) Kidney stones: Plan: seen on prior CT abd/pelvis if fevers recur consider repeat CT to ensure he has no obstructing stone -- but no abd pain or other features to suggest such (22) Schatzki's ring: Plan: s/p EGD dilatation 03/[address] Fan cont PPI Plan DVT proph - heparin drip --> ELiquis Dispo-improving--> plan to return to [facility] once tube feeds at goal and no refeeding syndrome, stable-hopefully in 2 days Admission and Anticipated Discharge Date Admission Date: March 02, 2022 Subjective Pt very alert and talkative today, in good spirits. Walked with 2 assist to the bathroom today, then sat in chair all day long. Tolerating tube feeds. Denies abd pain, denies cough. No bleeding from anywhere. Tele with rate controlled Afib Review of Systems Review of Systems: All systems reviewed & are unremarkable except as noted in HPI & below Physical Exam Physical Exam: gen - NAD,Alert, awake, interactive, extremely hard of hearing mouth - scant white exudate on tongue, tongue definitively smaller in size than last week HEENT -no epistaxis, OP clear neck - no JVD, trachea midline heart - irregularly irregular, s1 s2, 1-2/6 systolic murmur RUSB lungs - CTA b/l abd - BS+,no ttp, Gtube and binder in palce, Farley catheter in place draining clear yellow urine, GTube in place ext - no edema, right elbow with small edema and erythema with +TTP; right great toe with erythema and exquisite TTP neuro - 4/5 strength in RLE, 4/5 RUE much improved, 5/5 otherwise, +right facial droop, dysarthria present but MUCH improved from previous Results & Data Results & Data ([facility]) Vital Signs (Past 12 Hours) Vital Signs Temp Pulse Pulse Resp BP Pulse Ox O2 Del Method 03/21/22 15:35 36.7 C 79 17 130/69 99 Room Air 03/21/22 11:36 36.2 C L 79 17 123/77 96 Room Air 03/21/22 11:00 36.8 C 86 18 117/69 96 Room Air 03/21/22 08:00 60 03/21/22 07:30 36.3 C L 71 20 148/78 H 96 Room Air Laboratory Results 03/21/22 03/21/22 03/21/22 Range/Units 17:38 11:22 05:57 WBC (4.8-10.8) K/ul RBC (4.63-6.08) M/uL Hgb (14.0-18.0) g/dl Hct (40.1-51.0) % MCV (80.0-100.0) fL MCH (25.0-34.0) pg MCHC (32.0-36.0) g/dL RDW Std Deviation (36.4-46.3) fL RDW Coeff of Eben (11.5-14.5) % Plt Count (130-400) K/uL MPV (9.4-12.4) fL Immature Gran % (Auto) % Neut % (Auto) % Lymph % (Auto) % Bonner % (Auto) % Eos % (Auto) % Baso % (Auto) % Neut # (Auto) (1.4-6.5) K/uL Lymph # (Auto) (1.2-3.4) K/uL Bonner # (Auto) (0.24-0.82) K/uL Eos # (Auto) (0-0.50) K/uL Baso # (Auto) (0-0.2) K/uL Immature Gran # (Auto) (0.00-0.02) K/uL APTT 56.2 H* (21.0-31.0) Seconds PTT Ratio 2.0 Sodium (136-145) mmol/L Potassium (3.5-5.1) mmol/L Chloride (98-107) mmol/L Carbon Dioxide (21-32) mmol/L Anion Gap (3-11) BUN (6-23) mg/dl Creatinine (0.6-1.4) mg/dl Est Cr Clr Drug Dosing ml/min Est GFR ( Amer) ml/min Est GFR (Non-Af Amer) ml/min BUN/Creatinine Ratio (10-20) Glucose (70-99(Fasting)) mg/dl POC Glucose 280 H 243 H (70-99) mg/dl Calcium (8.5-10.1) mg/dl Phosphorus (2.5-4.9) mg/dl Magnesium (1.7-2.4) mg/dl Total Bilirubin (0.2-1.0) mg/dl AST (13-39) U/L ALT (7-52) U/L Alkaline Phosphatase (34-104) U/L Total Protein (6.0-8.3) gm/dl Albumin (3.4-5.0) gm/dl Globulin (2.5-4.0) gm/dl Albumin/Globulin Ratio (0.9-2) 03/21/22 03/21/22 03/21/22 Range/Units 05:57 05:57 05:56 WBC 7.14 (4.8-10.8) K/ul RBC 3.61 L (4.63-6.08) M/uL Hgb 10.7 L (14.0-18.0) g/dl Hct 32.3 L (40.1-51.0) % MCV 89.5 (80.0-100.0) fL MCH 29.6 (25.0-34.0) pg MCHC 33.1 (32.0-36.0) g/dL RDW Std Deviation 44.7 (36.4-46.3) fL RDW Coeff of Eben 13.7 (11.5-14.5) % Plt Count 152 (130-400) K/uL MPV 11.4 (9.4-12.4) fL Immature Gran % (Auto) 0.6 % Neut % (Auto) 68.5 % Lymph % (Auto) 21.1 % Bonner % (Auto) 8.5 % Eos % (Auto) 0.7 % Baso % (Auto) 0.6 % Neut # (Auto) 4.89 (1.4-6.5) K/uL Lymph # (Auto) 1.51 (1.2-3.4) K/uL Bonner # (Auto) 0.61 (0.24-0.82) K/uL Eos # (Auto) 0.05 (0-0.50) K/uL Baso # (Auto) 0.04 (0-0.2) K/uL Immature Gran # (Auto) 0.04 H (0.00-0.02) K/uL APTT (21.0-31.0) Seconds PTT Ratio Sodium 136 (136-145) mmol/L Potassium 3.8 (3.5-5.1) mmol/L Chloride 107 (98-107) mmol/L Carbon Dioxide 24 (21-32) mmol/L Anion Gap 5 (3-11) BUN 14 (6-23) mg/dl Creatinine 1.01 (0.6-1.4) mg/dl Est Cr Clr Drug Dosing 61.9 ml/min Est GFR ( Amer) 77.7 ml/min Est GFR (Non-Af Amer) 67.0 ml/min BUN/Creatinine Ratio 13.9 (10-20) Glucose 215 H (70-99(Fasting)) mg/dl POC Glucose 211 H (70-99) mg/dl Calcium 8.9 (8.5-10.1) mg/dl Phosphorus 2.9 (2.5-4.9) mg/dl Magnesium 2.0 (1.7-2.4) mg/dl Total Bilirubin 0.5 (0.2-1.0) mg/dl AST 17 (13-39) U/L ALT 23 (7-52) U/L Alkaline Phosphatase 65 (34-104) U/L Total Protein 5.9 L (6.0-8.3) gm/dl Albumin 3.1 L (3.4-5.0) gm/dl Globulin 2.8 (2.5-4.0) gm/dl Albumin/Globulin Ratio 1.1 (0.9-2) 03/20/22 03/20/22 Range/Units 23:51 20:30 WBC (4.8-10.8) K/ul RBC (4.63-6.08) M/uL Hgb (14.0-18.0) g/dl Hct (40.1-51.0) % MCV (80.0-100.0) fL MCH (25.0-34.0) pg MCHC (32.0-36.0) g/dL RDW Std Deviation (36.4-46.3) fL RDW Coeff of Eben (11.5-14.5) % Plt Count (130-400) K/uL MPV (9.4-12.4) fL Immature Gran % (Auto) % Neut % (Auto) % Lymph % (Auto) % Bonner % (Auto) % Eos % (Auto) % Baso % (Auto) % Neut # (Auto) (1.4-6.5) K/uL Lymph # (Auto) (1.2-3.4) K/uL Bonner # (Auto) (0.24-0.82) K/uL Eos # (Auto) (0-0.50) K/uL Baso # (Auto) (0-0.2) K/uL Immature Gran # (Auto) (0.00-0.02) K/uL APTT (21.0-31.0) Seconds PTT Ratio Sodium (136-145) mmol/L Potassium (3.5-5.1) mmol/L Chloride (98-107) mmol/L Carbon Dioxide (21-32) mmol/L Anion Gap (3-11) BUN (6-23) mg/dl Creatinine (0.6-1.4) mg/dl Est Cr Clr Drug Dosing ml/min Est GFR ( Amer) ml/min Est GFR (Non-Af Amer) ml/min BUN/Creatinine Ratio (10-20) Glucose (70-99(Fasting)) mg/dl POC Glucose 195 H 196 H (70-99) mg/dl Calcium (8.5-10.1) mg/dl Phosphorus (2.5-4.9) mg/dl Magnesium (1.7-2.4) mg/dl Total Bilirubin (0.2-1.0) mg/dl AST (13-39) U/L ALT (7-52) U/L Alkaline Phosphatase (34-104) U/L Total Protein (6.0-8.3) gm/dl Albumin (3.4-5.0) gm/dl Globulin (2.5-4.0) gm/dl Albumin/Globulin Ratio (0.9-2) PG Care Time/CCT Total # of Minutes Spent Total Time Spent with Patient: Total time spent is greater than 50% in coordination of care (as documented) at patient's floor/unit and/or counseling patient: Coding Level of Care Code 73785 Subseq Hosp Care Lvl 2 Diagnoses Dysphagia R13.10 Gout M10.9 Stroke I63.9 Epistaxis R04.0 Status post myringotomy with tube placement of both ears Z96.22 S/P nasal polypectomy Z98.890 Atrial fibrillation I48.21 Atrial fibrillation type: permanent Coronary artery disease I25.10 Stage III chronic kidney disease N18.3 DM type 2 (diabetes mellitus, type 2) E11.9; Z79.4 Diabetes mellitus jail insulin use: with jail use Diabetes mellitus complication status: without complication HTN (hypertension) I10 Hypothyroid E03.9 Hypothyroidism type: acquired Hyperlipidemia E78.2 Hyperlipidemia type: mixed hyperlipidemia GERD (gastroesophageal reflux disease) K21.9 Esophagitis presence: esophagitis presence not specified Memory impairment R41.3 BPH (benign prostatic hyperplasia) N40.0 Thrombocytopenia D69.6 Depression F32.9 B12 deficiency E53.8 Fever R50.9 Kidney stones N20.0 Schatzki's ring K22.2 (1) Atrial fibrillation Atrial fibrillation type: permanent Qualified Code(s): I48.21 - Permanent atrial fibrillation (2) DM type 2 (diabetes mellitus, type 2) Diabetes mellitus jail insulin use: with jail use Diabetes mellitus complication status: without complication Qualified Code(s): E11.9 - Type 2 diabetes mellitus without complications; Z79.4 - long term care phlebotomist (current) use of insulin (3) Hypothyroid Hypothyroidism type: acquired Qualified Code(s): E03.9 - Hypothyroidism, unspecified (4) Hyperlipidemia Hyperlipidemia type: mixed hyperlipidemia Qualified Code(s): E78.2 - Mixed hyperlipidemia (5) GERD (gastroesophageal reflux disease) Esophagitis presence: esophagitis presence not specified Qualified Code(s): K21.9 - Gastro-esophageal reflux disease without esophagitis
[2022-03-21] MEDS: ATORVASTATIN 40 MG TAB GT SCH (20:32)
[2022-03-21] MEDS: TAMSULOSIN HCL 0.4 MG CAP PEG SCH (20:35)
[2022-03-21] MEDS ORDERED: LANTUS PER UNIT CHARGE SQ SCH (21:00)
[2022-03-21] MEDS: predniSONE 20 MG TAB PO SCH (21:21)
[2022-03-21] MEDS: APIXABAN 2.5 MG TAB PO SCH (21:22)
[2022-03-22] MEDS: INSULIN ASPART PER UNIT SC SCH ×4 (00:19→18:04)
[2022-03-22] MEDS: TUBE FEEDING WATER FLUSH PEG SCH ×6 (01:21→22:41)
[2022-03-22] MEDS: SODIUM CHLORIDE 0.65% NA SOLN 45 ML (OCEAN) SCH ×4 (05:53→16:39)
[2022-03-22] MEDS: LEVOTHYROXINE SODIUM 50 MCG TABLET NG SCH (05:54)
[2022-03-22 06:27] LABS: Basophils # (auto) 0.01 K/uL (0-0.2); Basophils % (auto) 0.1 %; Hematocrit (blood only) 32.6 % (40.1-51.0); Immature Granulocytes # (auto) 0.04 K/uL (0.00-0.02); Immature Granulocytes % (auto) 0.5 %; Lymphocytes % (auto) 7.9 %; Mean Corpuscular Hgb Conc 33.7 g/dL (32.0-36.0); Mean Corpuscular Volume 88.8 fL (80.0-100.0); Mean Platelet Volume 12.1 fL (9.4-12.4); Monocytes # (auto) 0.35 K/uL (0.24-0.82); Neutrophils # (auto) 7.71 K/uL (1.4-6.5); Neutrophils % (auto) 87.5 %; Platelet Count 153 K/uL (130-400); RDW Coefficient of Variation 13.6 % (11.5-14.5); RDW Standard Deviation 44.3 fL (36.4-46.3); Red Blood Count 3.67 M/uL (4.63-6.08); White Blood Count 8.81 K/ul (4.8-10.8)
[2022-03-22 07:16] LABS: Potassium 4.7 mmol/L (3.5-5.1)
[2022-03-22 07:17] LABS: Albumin Globulin Ratio 1.1 (0.9-2); Albumin Level 3.2 gm/dl (3.4-5.0); BUN Creatinine Ratio 16.5 (10-20); Bilirubin,Total 0.5 mg/dl (0.2-1.0); Calcium 8.9 mg/dl (8.5-10.1); Creatinine Clr Calc Pharmacy 66.1 ml/min; Est GFR (African American) 81.6 ml/min; Est GFR (Non-African American) 70.4 ml/min; Globulin 2.9 gm/dl (2.5-4.0); Phosphorus 2.9 mg/dl (2.5-4.9); Total Protein 6.1 gm/dl (6.0-8.3)
[2022-03-22] MEDS ORDERED: LANTUS PER UNIT CHARGE SQ SCH ×2 (09:00→21:00)
[2022-03-22] MEDS: cefTRIAXone SODIUM 2,000 MG in DEXTROSE 5% 50 ML IV SCH (10:00)
[2022-03-22] MEDS: amLODIPine BESYLATE 5 MG TAB GT SCH (10:03)
[2022-03-22] MEDS: CARBIDOPA/LEVODOPA 25/100MG TAB GT SCH ×3 (10:03→20:37)
[2022-03-22] MEDS: LANSOPRAZOLE 15 MG SOLTAB NG SCH (10:04)
[2022-03-22] MEDS: CLOPIDOGREL BISULFATE 75 MG TAB PEG SCH (10:04)
[2022-03-22] MEDS: CYANOCOBALAMIN (B-12) 500 MCG TABLET GT SCH (10:05)
[2022-03-22] MEDS: METOPROLOL TARTRATE 25 MG TAB OG SCH ×2 (10:06→20:38)
[2022-03-22] MEDS: THIAMINE HCL 100 MG TAB PEG SCH (10:06)
[2022-03-22] MEDS: lisinopril 40 MG TAB PO SCH (10:09)
[2022-03-22] MEDS: APIXABAN 2.5 MG TAB PO SCH ×2 (10:10→20:38)
[2022-03-22] MEDS: DOCUSATE SODIUM SYRUP 100 MG/10 ML UDC GT SCH ×2 (10:11→20:37)
[2022-03-22] MEDS: predniSONE 20 MG TAB PO SCH (10:12)
[2022-03-22] MEDS: POLYETHYLENE (MIRALAX) 17 GM PACK GT SCH (10:15)
[2022-03-22] MEDS: PREGABALIN 100 MG CAP PO SCH ×3 (10:15→20:37)
[2022-03-22] MEDS: FLUCONAZOLE 100 MG/50 ML BAG IV SCH (16:39)
--- NOTE | 2022-03-22 18:44 | Hospitalist Progress Note ---
Date of Service March 22, 2022 Assessment & Plan (1) Dysphagia: Plan: known issue at baseline even prior to this hospital stay multiple etiologies - prior CVAs, new/current CVA, esophageal stenosis (required dilation 07/2021), etc failed his bedside swallow and his video swallow on 03/05/22 NPO since then repeat video swallow 03/14 - essentially failed once again -- speech feels safest option is strict NPO with PEG placement Dr Fan from [facility] [facility] performed EGD 03/15; anatomy not suitable for PEG placement thus one not placed Gen surgery consulted for g-tube placement -now s/p G-tube on 03/19/22 -continue to titrate up to goal on tube feeds - goal of 70 mL/hr-now at goal -continue free H2O flushes with 100mL q4h (2) Gout: Plan: right elbow (likely olecrenon bursitis). right hand, and right great toe. EMR shows prior h/o gout. son confirmed that his father has had gout numerous times in the past. was improved but worsened 03/21 in right elbow and right great toe Now much improved with starting higher dose burst of prednisone 20mg daily through GT x 5 days-last dose 03/25 continue rocephin for olecrenon bursitis as well- 1 more day -offload pressure to right elbow (3) Stroke: Plan: Left basal ganglia/posterior limb of internal capsule. Thrombotic (off plavix recently) vs embolic etiology both possible (known a.mai, was off Eliquis for his recent sinus surgery). Appreciate neurology consult earlier in the stay. Continue PT, OT, speech therapy. Right arm weakness continues to improve. Speech has improved as well. Failed video swallow on 03/05/22. Failed video swallow again 03/14/22. NPO since. s/p coresafe NG tube placement 03/11 - unfortunately he self-removed 03/13. now s/p G-tube 03/19 -continue Eliquis continue plavix (4) Epistaxis: Plan: resolved none in many days afrin protocol prn for recurrent nosebleed (5) Status post myringotomy with tube placement of both ears: Plan: 03/01/22 - s/p Bilateral Myringotomy and Tube Insertion, Image guided bilateral endoscopic sinus surgery with bilateral frontal, total ethmoid, and maxillary sinus antrostomies Dr Ge surgery performed due to chronic sinus issues/sinusitis, polyps, chronic OME b/l, etc. completed course of ofloxacin drops b/l ears twice daily as recommended by Dr Ge recent bloody otorrhea improved/resolved started rocephin due to concern of sinusitis with low-grade fevers, severe leland estion, etc. --today day 10. No further fevers cxr w/o definitive pneumonia (6) S/P nasal polypectomy: Plan: 03/01/[address] Ge 03/08/22 - Endoscopic Sinus Debridement - also by Dr Ge complete course of rocephin for probable sinusitis -- day 05/06 today (7) Atrial fibrillation: Plan: permanent / stable continue Eliquis rates controlled -continue metoprolol per GT (8) Coronary artery disease: Plan: no ischemic symptoms continue statin, plavix, and metoprolol via GT (9) Stage III chronic kidney disease: Plan: lasix on hold BMPs stable BMP again in am (10) DM type 2 (diabetes mellitus, type 2): Plan: with hyperglycemia now from steroids-worsening today as tube feed rates increase cont lantus but increase to 20 units bid and tighten down Novolog to 25 CF and 1:13 CR home dose is 30 bid of 70/30 NPH HbA1C 6.7% (11) HTN (hypertension): Plan: BPs now controlled -continue lisinopril, metoprolol, amlodipine - hydralazine prn can increase amlodipine to 10mg if needed (12) Hypothyroid: Plan: continue levothyroxine 50 mcg daily most recent TSH wnl (2.3 in 09/2021) (13) Hyperlipidemia: Plan: continue statin (14) GERD (gastroesophageal reflux disease): Plan: continue Prevacid per GT EGD 03/15 without any upper GI path such as esophagitis, PUD, etc. (15) Memory impairment: Plan: 2nd to vascular disease h/o Parkinsonism continue Sinemet 0.5 mg TID cont thiamine (16) BPH (benign prostatic hyperplasia): Plan: with urinary retention s/p farley insertion continue Flomax started this admission (17) Thrombocytopenia: Plan: chronic, typically runs low 100s however - on 03/14 and 03/16 his platelets were >150 (18) Depression: Plan: Cymbalta not compatible with GT feedings has been off of this for weeks now won't restart for now (19) B12 deficiency: Plan: resolved b12 level >1000 (20) Fever: Plan: suspected to be sinus source fevers resolved w/ rocephin day 10 rocephin 2gm daily -complete on 03/22 cxr w/o pneumonia COVID testing negative urine culture negative (21) Kidney stones: Plan: seen on prior CT abd/pelvis if fevers recur consider repeat CT to ensure he has no obstructing stone -- but no abd pain or other features to suggest such (22) Schatzki's ring: Plan: s/p EGD dilatation 03/[address] Fan cont PPI Plan DVT proph - heparin drip --> ELiquis Dispo-improving--> plan to return to [facility] on Friday Admission and Anticipated Discharge Date Admission Date: March 02, 2022 Subjective Pt doing well today, no complaints. Says his elbow and toe feel so much better since increasing the prednisone dose. Is now up to goal on TFs and tolerating well. Is excited that he will be going home soon. Tele with rate controlled Afib Review of Systems Review of Systems: All systems reviewed & are unremarkable except as noted in HPI & below Physical Exam Physical Exam: gen - NAD,Alert, awake, interactive, extremely hard of hearing mouth - scant white exudate on tongue, tongue definitively smaller in size than last week HEENT -no epistaxis, OP clear neck - no JVD, trachea midline heart - irregularly irregular, s1 s2, 1-2/6 systolic murmur RUSB lungs - CTA b/l abd - BS+,no ttp, Gtube place, Farley catheter in place draining clear yellow urine, GTube in place ext - no edema, right elbow no TTP, ROM improving; right great toe with mild erythema and no further TTP neuro - 4/5 strength in RLE, 4/5 RUE much improved, 5/5 otherwise, +right facial droop, dysarthria present but MUCH improved from previous Results & Data Results & Data ([facility]) Vital Signs (Past 12 Hours) Vital Signs Temp Pulse Resp BP Pulse Ox O2 Del Method 03/22/22 07:45 Room Air 03/22/22 16:57 70 03/22/22 15:05 36.4 C L 76 17 135/74 97 03/22/22 11:33 36.2 C L 67 17 110/76 100 03/22/22 07:25 36.8 C 72 17 130/66 100 Laboratory Results 03/22/22 03/22/22 03/22/22 Range/Units 17:57 11:36 05:50 WBC (4.8-10.8) K/ul RBC (4.63-6.08) M/uL Hgb (14.0-18.0) g/dl Hct (40.1-51.0) % MCV (80.0-100.0) fL MCH (25.0-34.0) pg MCHC (32.0-36.0) g/dL RDW Std Deviation (36.4-46.3) fL RDW Coeff of Eben (11.5-14.5) % Plt Count (130-400) K/uL MPV (9.4-12.4) fL Immature Gran % (Auto) % Neut % (Auto) % Lymph % (Auto) % [place] % (Auto) % Eos % (Auto) % Baso % (Auto) % Neut # (Auto) (1.4-6.5) K/uL Lymph # (Auto) (1.2-3.4) K/uL [place] # (Auto) (0.24-0.82) K/uL Eos # (Auto) (0-0.50) K/uL Baso # (Auto) (0-0.2) K/uL Immature Gran # (Auto) (0.00-0.02) K/uL Sodium 135 L (136-145) mmol/L Potassium 4.7 D (3.5-5.1) mmol/L Chloride 104 (98-107) mmol/L Carbon Dioxide 24 (21-32) mmol/L Anion Gap 7 (3-11) BUN 16 (6-23) mg/dl Creatinine 0.97 (0.6-1.4) mg/dl Est Cr Clr Drug Dosing 66.1 ml/min Est GFR ( Amer) 81.6 ml/min Est GFR (Non-Af Amer) 70.4 ml/min BUN/Creatinine Ratio 16.5 (10-20) Glucose 267 H (70-99(Fasting)) mg/dl POC Glucose 286 H 263 H (70-99) mg/dl Calcium 8.9 (8.5-10.1) mg/dl Phosphorus 2.9 (2.5-4.9) mg/dl Magnesium 2.0 (1.7-2.4) mg/dl Total Bilirubin 0.5 (0.2-1.0) mg/dl AST 16 (13-39) U/L ALT 27 (7-52) U/L Alkaline Phosphatase 72 (34-104) U/L Total Protein 6.1 (6.0-8.3) gm/dl Albumin 3.2 L (3.4-5.0) gm/dl Globulin 2.9 (2.5-4.0) gm/dl Albumin/Globulin Ratio 1.1 (0.9-2) 03/22/22 03/22/22 03/22/22 Range/Units 05:50 05:47 00:16 WBC 8.81 (4.8-10.8) K/ul RBC 3.67 L (4.63-6.08) M/uL Hgb 11.0 L (14.0-18.0) g/dl Hct 32.6 L (40.1-51.0) % MCV 88.8 (80.0-100.0) fL MCH 30.0 (25.0-34.0) pg MCHC 33.7 (32.0-36.0) g/dL RDW Std Deviation 44.3 (36.4-46.3) fL RDW Coeff of Eben 13.6 (11.5-14.5) % Plt Count 153 (130-400) K/uL MPV 12.1 (9.4-12.4) fL Immature Gran % (Auto) 0.5 % Neut % (Auto) 87.5 % Lymph % (Auto) 7.9 % [place] % (Auto) 4.0 % Eos % (Auto) 0.0 % Baso % (Auto) 0.1 % Neut # (Auto) 7.71 H (1.4-6.5) K/uL Lymph # (Auto) 0.70 L (1.2-3.4) K/uL [place] # (Auto) 0.35 (0.24-0.82) K/uL Eos # (Auto) 0.00 (0-0.50) K/uL Baso # (Auto) 0.01 (0-0.2) K/uL Immature Gran # (Auto) 0.04 H (0.00-0.02) K/uL Sodium (136-145) mmol/L Potassium (3.5-5.1) mmol/L Chloride (98-107) mmol/L Carbon Dioxide (21-32) mmol/L Anion Gap (3-11) BUN (6-23) mg/dl Creatinine (0.6-1.4) mg/dl Est Cr Clr Drug Dosing ml/min Est GFR ( Amer) ml/min Est GFR (Non-Af Amer) ml/min BUN/Creatinine Ratio (10-20) Glucose (70-99(Fasting)) mg/dl POC Glucose 267 H 233 H (70-99) mg/dl Calcium (8.5-10.1) mg/dl Phosphorus (2.5-4.9) mg/dl Magnesium (1.7-2.4) mg/dl Total Bilirubin (0.2-1.0) mg/dl AST (13-39) U/L ALT (7-52) U/L Alkaline Phosphatase (34-104) U/L Total Protein (6.0-8.3) gm/dl Albumin (3.4-5.0) gm/dl Globulin (2.5-4.0) gm/dl Albumin/Globulin Ratio (0.9-2) /25/ Range/Units 20:15 WBC (4.8-10.8) K/ul RBC (4.63-6.08) M/uL Hgb (14.0-18.0) g/dl Hct (40.1-51.0) % MCV (80.0-100.0) fL MCH (25.0-34.0) pg MCHC (32.0-36.0) g/dL RDW Std Deviation (36.4-46.3) fL RDW Coeff of Eben (11.5-14.5) % Plt Count (130-400) K/uL MPV (9.4-12.4) fL Immature Gran % (Auto) % Neut % (Auto) % Lymph % (Auto) % [place] % (Auto) % Eos % (Auto) % Baso % (Auto) % Neut # (Auto) (1.4-6.5) K/uL Lymph # (Auto) (1.2-3.4) K/uL [place] # (Auto) (0.24-0.82) K/uL Eos # (Auto) (0-0.50) K/uL Baso # (Auto) (0-0.2) K/uL Immature Gran # (Auto) (0.00-0.02) K/uL Sodium (136-145) mmol/L Potassium (3.5-5.1) mmol/L Chloride (98-107) mmol/L Carbon Dioxide (21-32) mmol/L Anion Gap (3-11) BUN (6-23) mg/dl Creatinine (0.6-1.4) mg/dl Est Cr Clr Drug Dosing ml/min Est GFR ( Amer) ml/min Est GFR (Non-Af Amer) ml/min BUN/Creatinine Ratio (10-20) Glucose (70-99(Fasting)) mg/dl POC Glucose 296 H (70-99) mg/dl Calcium (8.5-10.1) mg/dl Phosphorus (2.5-4.9) mg/dl Magnesium (1.7-2.4) mg/dl Total Bilirubin (0.2-1.0) mg/dl AST (13-39) U/L ALT (7-52) U/L Alkaline Phosphatase (34-104) U/L Total Protein (6.0-8.3) gm/dl Albumin (3.4-5.0) gm/dl Globulin (2.5-4.0) gm/dl Albumin/Globulin Ratio (0.9-2) PG Care Time/CCT Total # of Minutes Spent Total Time Spent with Patient: Total time spent is greater than 50% in coordination of care (as documented) at patient's floor/unit and/or counseling patient: Coding Level of Care Code 80343 Subseq Hosp Care Lvl 2 Diagnoses Dysphagia R13.10 Gout M10.9 Stroke I63.9 Epistaxis R04.0 Status post myringotomy with tube placement of both ears Z96.22 S/P nasal polypectomy Z98.890 Atrial fibrillation I48.21 Atrial fibrillation type: permanent Coronary artery disease I25.10 Stage III chronic kidney disease N18.3 DM type 2 (diabetes mellitus, type 2) E11.9; Z79.4 Diabetes mellitus snf insulin use: with manager long term care use Diabetes mellitus complication status: without complication HTN (hypertension) I10 Hypothyroid E03.9 Hypothyroidism type: acquired Hyperlipidemia E78.2 Hyperlipidemia type: mixed hyperlipidemia GERD (gastroesophageal reflux disease) K21.9 Esophagitis presence: esophagitis presence not specified Memory impairment R41.3 BPH (benign prostatic hyperplasia) N40.0 Thrombocytopenia D69.6 Depression F32.9 B12 deficiency E53.8 Fever R50.9 Kidney stones N20.0 Schatzki's ring K22.2 (1) Atrial fibrillation Atrial fibrillation type: permanent Qualified Code(s): I48.21 - Permanent atrial fibrillation (2) DM type 2 (diabetes mellitus, type 2) Diabetes mellitus manager long term care insulin use: with manager long term care use Diabetes mellitus complication status: without complication Qualified Code(s): E11.9 - Type 2 diabetes mellitus without complications; 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
[2022-03-22] MEDS: TAMSULOSIN HCL 0.4 MG CAP PEG SCH (20:37)
[2022-03-22] MEDS: ATORVASTATIN 40 MG TAB GT SCH (20:38)
[2022-03-23] MEDS: INSULIN ASPART PER UNIT SC SCH ×4 (00:10→18:30)
[2022-03-23] MEDS: TUBE FEEDING WATER FLUSH PEG SCH ×6 (01:26→21:43)
[2022-03-23] MEDS: LEVOTHYROXINE SODIUM 50 MCG TABLET NG SCH (06:24)
[2022-03-23] MEDS: SODIUM CHLORIDE 0.65% NA SOLN 45 ML (OCEAN) SCH ×4 (06:24→15:54)
[2022-03-23 06:30] LABS: Basophils # (auto) 0.03 K/uL (0-0.2); Basophils % (auto) 0.4 %; Eosinophils # (auto) 0.05 K/uL (0-0.50); Eosinophils % (auto) 0.6 %; Hematocrit (blood only) 32.6 % (40.1-51.0); Hemoglobin 10.9 g/dl (14.0-18.0); Immature Granulocytes # (auto) 0.06 K/uL (0.00-0.02); Immature Granulocytes % (auto) 0.7 %; Lymphocytes # (auto) 1.55 K/uL (1.2-3.4); Lymphocytes % (auto) 18.6 %; Mean Corpuscular Hemoglobin 29.9 pg (25.0-34.0); Mean Corpuscular Hgb Conc 33.4 g/dL (32.0-36.0); Mean Corpuscular Volume 89.3 fL (80.0-100.0); Mean Platelet Volume 12.1 fL (9.4-12.4); Monocytes # (auto) 0.59 K/uL (0.24-0.82); Monocytes % (auto) 7.1 %; Neutrophils # (auto) 6.06 K/uL (1.4-6.5); Neutrophils % (auto) 72.6 %; Platelet Count 144 K/uL (130-400); RDW Coefficient of Variation 13.6 % (11.5-14.5); RDW Standard Deviation 44.7 fL (36.4-46.3); Red Blood Count 3.65 M/uL (4.63-6.08); White Blood Count 8.34 K/ul (4.8-10.8)
[2022-03-23 07:05] LABS: Albumin Globulin Ratio 1.1 (0.9-2); Albumin Level 3.2 gm/dl (3.4-5.0); BUN Creatinine Ratio 24.2 (10-20); Bilirubin,Total 0.4 mg/dl (0.2-1.0); Calcium 8.8 mg/dl (8.5-10.1); Est GFR (African American) 83.7 ml/min; Est GFR (Non-African American) 72.2 ml/min; Globulin 2.8 gm/dl (2.5-4.0); Potassium 4.1 mmol/L (3.5-5.1)
[2022-03-23] MEDS: FIBERSOURCE HN 1.2 CAL 1000 ML BAG GT SCH (07:50)
[2022-03-23] MEDS: POLYETHYLENE (MIRALAX) 17 GM PACK GT SCH (08:33)
[2022-03-23] MEDS: amLODIPine BESYLATE 5 MG TAB GT SCH (08:33)
[2022-03-23] MEDS: THIAMINE HCL 100 MG TAB PEG SCH (08:34)
[2022-03-23] MEDS: CARBIDOPA/LEVODOPA 25/100MG TAB GT SCH ×3 (08:34→21:42)
[2022-03-23] MEDS: CLOPIDOGREL BISULFATE 75 MG TAB PEG SCH (08:34)
[2022-03-23] MEDS: CYANOCOBALAMIN (B-12) 500 MCG TABLET GT SCH (08:34)
[2022-03-23] MEDS: LANSOPRAZOLE 15 MG SOLTAB NG SCH (08:34)
[2022-03-23] MEDS: lisinopril 40 MG TAB PO SCH (08:34)
[2022-03-23] MEDS: predniSONE 20 MG TAB PO SCH (08:34)
[2022-03-23] MEDS: DOCUSATE SODIUM SYRUP 100 MG/10 ML UDC GT SCH ×2 (08:35→21:42)
[2022-03-23] MEDS: APIXABAN 2.5 MG TAB PO SCH ×2 (08:35→21:42)
[2022-03-23] MEDS: METOPROLOL TARTRATE 25 MG TAB OG SCH ×2 (08:35→21:41)
[2022-03-23] MEDS: LANTUS PER UNIT CHARGE SQ SCH ×2 (08:44→21:43)
[2022-03-23] MEDS: cefTRIAXone SODIUM 2,000 MG in DEXTROSE 5% 50 ML IV SCH (08:45)
[2022-03-23] MEDS: PREGABALIN 100 MG CAP PO SCH ×3 (08:45→21:41)
[2022-03-23] MEDS ORDERED: INSULIN HUMAN NPH SC SCH (09:00)
[2022-03-23] MEDS: FLUCONAZOLE 100 MG/50 ML BAG IV SCH (15:54)
--- NOTE | 2022-03-23 18:19 | Hospitalist Progress Note ---
Date of Service March 23, 2022 Assessment & Plan (1) Dysphagia: Plan: known issue at baseline even prior to this hospital stay multiple etiologies - prior CVAs, new/current CVA, esophageal stenosis (required dilation 07/2021), etc failed his bedside swallow and his video swallow on 03/05/22 NPO since then repeat video swallow 03/14 - essentially failed once again -- speech feels safest option is strict NPO with PEG placement Dr Fan from [facility] [place] [facility] performed EGD 03/15; anatomy not suitable for PEG placement thus one not placed Gen surgery consulted for g-tube placement -now s/p G-tube on 03/19/22 -now at goal on tube feeds - 70 mL/hr -continue free H2O flushes with 100mL q4h (2) Gout: Plan: right elbow (likely olecrenon bursitis). right hand, and right great toe. EMR shows prior h/o gout. son confirmed that his father has had gout numerous times in the past. was improved but worsened 03/21 in right elbow and right great toe Now much improved with starting higher dose burst of prednisone 20mg daily through GT x 5 days-last dose 03/25 also completed course of rocephin for olecrenon bursitis -offload pressure to right elbow (3) Stroke: Plan: Left basal ganglia/posterior limb of internal capsule. Thrombotic (off plavix recently) vs embolic etiology both possible (known a.mai, was off Eliquis for his recent sinus surgery). Appreciate neurology consult earlier in the stay. Continue PT, OT, speech therapy. Right arm weakness continues to improve. Speech has improved as well. Failed video swallow on 03/05/22. Failed video swallow again 03/14/22. NPO since. s/p coresafe NG tube placement 03/11 - unfortunately he self-removed 03/13. now s/p G-tube 03/19 -continue Eliquis continue plavix (4) Epistaxis: Plan: resolved none in many days afrin protocol prn for recurrent nosebleed (5) Status post myringotomy with tube placement of both ears: Plan: 03/01/22 - s/p Bilateral Myringotomy and Tube Insertion, Image guided bilateral endoscopic sinus surgery with bilateral frontal, total ethmoid, and maxillary sinus antrostomies Dr Ge surgery performed due to chronic sinus issues/sinusitis, polyps, chronic OME b/l, etc. completed course of ofloxacin drops b/l ears twice daily as recommended by Dr Ge recent bloody otorrhea improved/resolved completed 10 day course of rocephin due to concern of sinusitis with low-grade fevers, severe congestion, etc. No further fevers cxr w/o definitive pneumonia (6) S/P nasal polypectomy: Plan: 03/01/[address] Ge 03/08/22 - Endoscopic Sinus Debridement - also by Dr Ge completed course of rocephin for probable sinusitis (7) Atrial fibrillation: Plan: permanent / stable continue Eliquis rates controlled -continue metoprolol per GT (8) Coronary artery disease: Plan: no ischemic symptoms continue statin, plavix, and metoprolol via GT (9) Stage III chronic kidney disease: Plan: lasix on hold-would use prn on discharge BMPs stable (10) DM type 2 (diabetes mellitus, type 2): Plan: with hyperglycemia now from steroids-worsening today as tube feed rates increase cont lantus but increase to 25 units bid and tighten down Novolog to 18 CF and 1:10 CR home dose is 30 bid of 70/30 NPH Add NPH 8 units daily today while on prednisone Can likely go back to h ome dosing of 70/30 on discharge HbA1C 6.7% (11) HTN (hypertension): Plan: BPs now controlled -continue lisinopril, metoprolol, amlodipine can increase amlodipine to 10mg if needed (12) Hypothyroid: Plan: continue levothyroxine 50 mcg daily most recent TSH wnl (2.3 in 09/2021) (13) Hyperlipidemia: Plan: continue statin (14) GERD (gastroesophageal reflux disease): Plan: continue Prevacid per GT EGD 03/15 without any upper GI path such as esophagitis, PUD, etc. (15) Memory impairment: Plan: 2nd to vascular disease h/o Parkinsonism continue Sinemet 0.5 mg TID cont thiamine (16) BPH (benign prostatic hyperplasia): Plan: with urinary retention s/p farley insertion continue Flomax started this admission trial of void today-Farley removed (17) Thrombocytopenia: Plan: chronic, typically runs low 100s however - on 03/14 and 03/16 his platelets were >150 (18) Depression: Plan: Cymbalta not compatible with GT feedings has been off of this for weeks now won't restart for now (19) B12 deficiency: Plan: resolved b12 level >1000 (20) Fever: Plan: suspected to be sinus source fevers resolved w/ rocephin finished 10 day course of rocephin 2gm daily cxr w/o pneumonia COVID testing negative urine culture negative (21) Kidney stones: Plan: seen on prior CT abd/pelvis if fevers recur consider repeat CT to ensure he has no obstructing stone -- but no abd pain or other features to suggest such (22) Schatzki's ring: Plan: s/p EGD dilatation 03/[address] Fan cont PPI Plan DVT proph - heparin drip --> ELiquis Dispo-improving--> plan to return to [facility] on Friday Admission and Anticipated Discharge Date Admission Date: March 02, 2022 Subjective Pt had a great day. Is ambulating with PT and a walker. Is OOB to chair when I saw him. Says pain in elbow and great toe improved. Tolerating tube feeds. Is excited to be gong home tomorrow Tele with rate controlled afib Review of Systems Review of Systems: All systems reviewed & are unremarkable except as noted in HPI & below Physical Exam Physical Exam: gen - NAD,Alert, awake, interactive, extremely hard of hearing mouth - scant white exudate on tongue, tongue definitively smaller in size than last week HEENT -no epistaxis, OP clear neck - no JVD, trachea midline heart - irregularly irregular, s1 s2, 1-2/6 systolic murmur RUSB lungs - CTA b/l abd - BS+,no ttp, Gtube place ext - no edema, right elbow no TTP, ROM improving; right great toe no further TTP neuro - 4/5 strength in RLE, 4/5 RUE much improved, 5/5 otherwise, +right facial droop, dysarthria present but MUCH improved from previous Results & Data Results & Data ([facility]) Vital Signs (Past 12 Hours) Vital Signs Temp Pulse Resp BP Pulse Ox O2 Del Method O2 Flow Rate 03/23/22 17:27 74 03/23/22 16:15 36.2 C L 77 18 126/73 96 03/23/22 11:31 36.9 C 63 22 126/69 98 03/23/22 08:20 Nasal Cannula 2 03/23/22 07:22 36.7 C 68 22 142/74 H 98 Laboratory Results 03/23/22 03/23/22 03/23/22 Range/Units 18:04 11:51 06:23 WBC (4.8-10.8) K/ul RBC (4.63-6.08) M/uL Hgb (14.0-18.0) g/dl Hct (40.1-51.0) % MCV (80.0-100.0) fL MCH (25.0-34.0) pg MCHC (32.0-36.0) g/dL RDW Std Deviation (36.4-46.3) fL RDW Coeff of Eben (11.5-14.5) % Plt Count (130-400) K/uL MPV (9.4-12.4) fL Immature Gran % (Auto) % Neut % (Auto) % Lymph % (Auto) % [place] % (Auto) % Eos % (Auto) % Baso % (Auto) % Neut # (Auto) (1.4-6.5) K/uL Lymph # (Auto) (1.2-3.4) K/uL [place] # (Auto) (0.24-0.82) K/uL Eos # (Auto) (0-0.50) K/uL Baso # (Auto) (0-0.2) K/uL Immature Gran # (Auto) (0.00-0.02) K/uL Sodium 136 (136-145) mmol/L Potassium 4.1 (3.5-5.1) mmol/L Chloride 103 (98-107) mmol/L Carbon Dioxide 27 (21-32) mmol/L Anion Gap 6 (3-11) BUN 23 (6-23) mg/dl Creatinine 0.95 (0.6-1.4) mg/dl Est Cr Clr Drug Dosing 67.0 ml/min Est GFR ( Amer) 83.7 ml/min Est GFR (Non-Af Amer) 72.2 ml/min BUN/Creatinine Ratio 24.2 H (10-20) Glucose 308 H* (70-99(Fasting)) mg/dl POC Glucose 295 H 260 H (70-99) mg/dl Calcium 8.8 (8.5-10.1) mg/dl Phosphorus 3.0 (2.5-4.9) mg/dl Magnesium 2.0 (1.7-2.4) mg/dl Total Bilirubin 0.4 (0.2-1.0) mg/dl AST 16 (13-39) U/L ALT 29 (7-52) U/L Alkaline Phosphatase 82 (34-104) U/L Total Protein 6.0 (6.0-8.3) gm/dl Albumin 3.2 L (3.4-5.0) gm/dl Globulin 2.8 (2.5-4.0) gm/dl Albumin/Globulin Ratio 1.1 (0.9-2) 03/23/22 03/23/22 03/23/22 Range/Units 06:23 05:58 00:06 WBC 8.34 (4.8-10.8) K/ul RBC 3.65 L (4.63-6.08) M/uL Hgb 10.9 L (14.0-18.0) g/dl Hct 32.6 L (40.1-51.0) % MCV 89.3 (80.0-100.0) fL MCH 29.9 (25.0-34.0) pg MCHC 33.4 (32.0-36.0) g/dL RDW Std Deviation 44.7 (36.4-46.3) fL RDW Coeff of Eben 13.6 (11.5-14.5) % Plt Count 144 (130-400) K/uL MPV 12.1 (9.4-12.4) fL Immature Gran % (Auto) 0.7 % Neut % (Auto) 72.6 % Lymph % (Auto) 18.6 % [place] % (Auto) 7.1 % Eos % (Auto) 0.6 % Baso % (Auto) 0.4 % Neut # (Auto) 6.06 (1.4-6.5) K/uL Lymph # (Auto) 1.55 (1.2-3.4) K/uL [place] # (Auto) 0.59 (0.24-0.82) K/uL Eos # (Auto) 0.05 (0-0.50) K/uL Baso # (Auto) 0.03 (0-0.2) K/uL Immature Gran # (Auto) 0.06 H (0.00-0.02) K/uL Sodium (136-145) mmol/L Potassium (3.5-5.1) mmol/L Chloride (98-107) mmol/L Carbon Dioxide (21-32) mmol/L Anion Gap (3-11) BUN (6-23) mg/dl Creatinine (0.6-1.4) mg/dl Est Cr Clr Drug Dosing ml/min Est GFR ( Amer) ml/min Est GFR (Non-Af Amer) ml/min BUN/Creatinine Ratio (10-20) Glucose (70-99(Fasting)) mg/dl POC Glucose 308 H* 273 H (70-99) mg/dl Calcium (8.5-10.1) mg/dl Phosphorus (2.5-4.9) mg/dl Magnesium (1.7-2.4) mg/dl Total Bilirubin (0.2-1.0) mg/dl AST (13-39) U/L ALT (7-52) U/L Alkaline Phosphatase (34-104) U/L Total Protein (6.0-8.3) gm/dl Albumin (3.4-5.0) gm/dl Globulin (2.5-4.0) gm/dl Albumin/Globulin Ratio (0.9-2) PG Care Time/CCT Total # of Minutes Spent Total Time Spent with Patient: Total time spent is greater than 50% in coordination of care (as documented) at patient's floor/unit and/or counseling patient: Coding Level of Care Code 69582 Subseq Hosp Care Lvl 2 Diagnoses Dysphagia R13.10 Gout M10.9 Stroke I63.9 Epistaxis R04.0 Status post myringotomy with tube placement of both ears Z96.22 S/P nasal polypectomy Z98.890 Atrial fibrillation I48.21 Atrial fibrillation type: permanent Coronary artery disease I25.10 Stage III chronic kidney disease N18.3 DM type 2 (diabetes mellitus, type 2) E11.9; Z79.4 Diabetes mellitus complication status: without complication Diabetes mellitus mcc insulin 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 HTN (hypertension) I10 Hypothyroid E03.9 Hypothyroidism type: acquired Hyperlipidemia E78.2 Hyperlipidemia type: mixed hyperlipidemia GERD (gastroesophageal reflux disease) K21.9 Esophagitis presence: esophagitis presence not specified Memory impairment R41.3 BPH (benign prostatic hyperplasia) N40.0 Thrombocytopenia D69.6 Depression F32.9 B12 deficiency E53.8 Fever R50.9 Kidney stones N20.0 Schatzki's ring K22.2 (1) DM type 2 (diabetes mellitus, type 2) Diabetes mellitus complication status: without complication Diabetes mellitus termite treater helper insulin use: with mcc use Qualified Code(s): E11.9 - Type 2 diabetes mellitus without complications; Z79.4 - detention (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
[2022-03-23] MEDS: TAMSULOSIN HCL 0.4 MG CAP PEG SCH (21:41)
[2022-03-23] MEDS: ATORVASTATIN 40 MG TAB GT SCH (21:42)
[2022-03-24] MEDS: INSULIN ASPART PER UNIT SC SCH ×2 (00:24→06:13)
[2022-03-24] MEDS: FIBERSOURCE HN 1.2 CAL 1000 ML BAG GT SCH (00:25)
[2022-03-24] MEDS: TUBE FEEDING WATER FLUSH PEG SCH ×3 (02:06→08:52)
[2022-03-24] MEDS: SODIUM CHLORIDE 0.65% NA SOLN 45 ML (OCEAN) SCH ×2 (06:14→10:00)
[2022-03-24] MEDS: LEVOTHYROXINE SODIUM 50 MCG TABLET NG SCH (06:14)
[2022-03-24] MEDS: lisinopril 40 MG TAB PO SCH (08:47)
[2022-03-24] MEDS: CLOPIDOGREL BISULFATE 75 MG TAB PEG SCH (08:48)
[2022-03-24] MEDS: THIAMINE HCL 100 MG TAB PEG SCH (08:48)
[2022-03-24] MEDS: predniSONE 20 MG TAB PO SCH (08:48)
[2022-03-24] MEDS: METOPROLOL TARTRATE 25 MG TAB OG SCH (08:49)
[2022-03-24] MEDS: CYANOCOBALAMIN (B-12) 500 MCG TABLET GT SCH (08:49)
[2022-03-24] MEDS: APIXABAN 2.5 MG TAB PO SCH (08:49)
[2022-03-24] MEDS: amLODIPine BESYLATE 5 MG TAB GT SCH (08:49)
[2022-03-24] MEDS: DOCUSATE SODIUM SYRUP 100 MG/10 ML UDC GT SCH (08:49)
[2022-03-24] MEDS: CARBIDOPA/LEVODOPA 25/100MG TAB GT SCH (08:50)
[2022-03-24] MEDS: LANSOPRAZOLE 15 MG SOLTAB NG SCH (08:52)
[2022-03-24] MEDS: LANTUS PER UNIT CHARGE SQ SCH (08:53)
[2022-03-24] MEDS: POLYETHYLENE (MIRALAX) 17 GM PACK GT SCH (08:53)
[2022-03-24] MEDS: PREGABALIN 100 MG CAP PO SCH (08:56)
[2022-03-24] MEDS ORDERED: INSULIN HUMAN NPH SC SCH (09:00)
--- NOTE | 2022-03-24 10:43 | Discharge Summary ---
Date of Service March 24, 2022 Admission HPI Per Admitting Provider Sahil Martinez is an 86 y/o male with past medical history significant for previous strokes, A. fib on Eliquis, CAD s/p CABG x4 vessels, DM2, CKD, hypertension, hyperlipidemia, GERD, hypothyroidism, Parkinson's, BPH, depression who presents today from [facility] with concerns for stroke. Patient had b/l myringotomy and tube insertion + nasal polypectomy yesterday, 03/01, procedure went well without complications, instructed to hold Plavix and Eliquis after. He felt somewhat drowsy last evening and had a little SOB, and a minor nose bleed last evening/this morning from blowing his nose, otherwise without complaints. 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 Last known well unknown. Upon arrival, patient's vital signs within normal limits, 90% on room air. Labs significant for Hgb 13.6, not far from baseline. Sodium a bit low at 133, creatinine slightly bumped at 1.81, baseline 1.21.4. Glucose elevated at 183. hs trop 19.5. COVID-negative. CT of the head without evidence for acute infarct or intracranial hemorrhage; infarct seen, unchanged from previous imaging, acute on chronic paraspinal sinusitis with hyperdense secretions, likely blood from recent surgery. Chronic B/L mastoid effusions noted. Head and neck CTA with unchanged high-grade intracranial stenoses, atherosclerotic disease of carotid bulbs without significant stenosis, moderate stenosis proximal V1 segment of right vertebral artery, again blood products seen in paranasal sinuses due to postoperative state. Unchanged medial deviation of the right vocal cord. Patient is outside the window for tPA, has had previous strokes, currently with Plavix and Eliquis being held due to ENT surgery yesterday. He will be admitted for further stroke work-up, to include MRI or repeat CT, echocardiogram, and labs in the a.m. Principal Diagnosis Acute CVA, dysphagia, G-tube placement Discharge Exam gen - NAD,Alert, awake, interactive, extremely hard of hearing mouth - scant white exudate on tongue, tongue definitively smaller in size than last week HEENT -no epistaxis, OP clear neck - no JVD, trachea midline heart - irregularly irregular, s1 s2, 1-2/6 systolic murmur RUSB lungs - CTA b/l abd - BS+,no ttp, Gtube place ext - no edema, right elbow no erythema and no TTP, ROM improving; right great toe no further TTP and no erythema neuro - 4/5 strength in RLE, 4/5 RUE much improved, 5/5 otherwise, mild +right facial droop, dysarthria present but MUCH improved from previous Discharge Data Allergies Allergy/AdvReac Type Severity Reaction Status Date / Time hydrocodone AdvReac Mild Dizziness, Verified 03/01/22 05:55 [From Panlor Nausea (hydrocodone-acetamin)] oxycodone AdvReac Mild N/V Verified 03/01/22 05:55 tramadol AdvReac Mild Confusion Verified 03/01/22 05:55 Consultations 03/02/22 12:07 ED Decision to Admit Stat 03/02/22 14:40 Consult Neurology Routine 03/05/22 09:54 Consult Palliative Care Routine 03/05/22 12:55 Consult Gastroenterology Routine 03/06/22 14:55 Consult Otolaryngology (Head and Neck) Routine 03/15/22 10:11 Consult General Surgery Routine 03/15/22 14:33 Consult Anesthesiology Routine Procedures Performed Operation Date: 03/08/22 09:55 Actual Procedures p Endopscopic Sinus Debridement, Placement NasoGastric Tube Nasal using Endoscope(Not Applicable) - Britt Ge MD Operation Date: 03/15/22 16:30 Actual Procedures p EGD Dilatation - Candelario Fan DO Operation Date: 03/19/22 13:20 Actual Procedures p Gastric Tube Placement - Danilo Webb DO s Esophagogastroduodenoscopy - Danilo Webb DO Ordered Studies 03/02/22 11:08 CT angio head w con Stat CT angio neck with con Stat CT head/brain wo con Stat 03/02/22 12:58 MRI Brain [MR brain wo con] Stat 03/05/22 09:30 Fluoro video [FL video swallow] Routine 03/14/22 13:00 Fluoro video [FL video swallow] Routine Hospital Course (1) Dysphagia: known issue at baseline even prior to this hospital stay multiple etiologies - prior CVAs, new/current CVA, esophageal stenosis (required dilation 07/2021), etc failed his bedside swallow and his video swallow on 03/05/22 NPO since then repeat video swallow 03/14 - essentially failed once again -- speech feels safest option is strict NPO with PEG placement [place] Fan [place] [facility] [place] [facility] [place] EGD 03/15; anatomy not suitable for PEG placement thus one not placed Gen surgery consulted for g-tube placement -now s/p G-tube on 03/19/22 -now at goal on tube feeds - 70 mL/hr -continue free H2O flushes with 100mL q4h (2) Gout: right elbow (likely olecrenon bursitis). right hand, and right great toe. EMR shows prior h/o gout. son confirmed that his father has had gout numerous times in the past Now much improved with starting higher dose burst of prednisone 20mg daily through [facility] x 5 days-last dose 03/25 also completed course of rocephin for olecrenon bursitis -offload pressure to right elbow (3) Stroke: Left basal ganglia/posterior limb of internal capsule. Thrombotic (off plavix recently) vs embolic etiology both possible (known a.mai, was off Eliquis for his recent sinus surgery). Appreciate neurology consult earlier in the stay. Continue PT, OT, speech therapy. Right arm weakness continues to improve. Speech has improved as well. Failed video swallow on 03/05/22. Failed video swallow again 03/14/22. NPO since. s/p coresafe NG tube placement 03/11 - unfortunately he self-removed 03/13. now s/p G-tube 03/19 -continue Eliquis and increase to dose of 5 Mg p.o. twice daily from home dose of 2.5 as his renal function and weight are acceptable for the higher dose continue plavix (4) Epistaxis: resolved (5) Status post myringotomy with tube placement of both ears: 03/01/22 - s/p Bilateral Myringotomy and Tube Insertion, Image guided bilateral endoscopic sinus surgery with bilateral frontal, total ethmoid, and maxillary sinus antrostomies Dr Ge surgery performed due to chronic sinus issues/sinusitis, polyps, chronic OME b/l, etc. completed course of ofloxacin drops b/l ears twice daily as recommended by Dr Ge recent bloody otorrhea improved/resolved completed 10 day course of rocephin due to concern of sinusitis with low-grade fevers, severe congestion, etc. No further fevers cxr w/o definitive pneumonia (6) S/P nasal polypectomy: 03/01/[address] Ge 03/08/22 - Endoscopic Sinus Debridement - also by Dr Ge completed course of rocephin for probable sinusitis (7) Atrial fibrillation: permanent / stable continue Eliquis rates controlled -continue metoprolol per GT (8) Coronary artery disease: no ischemic symptoms continue statin, plavix, and metoprolol via GT (9) Stage III chronic kidney disease: His home Lasix was not given throughout his hospitalization and he remained euvolemic-would use prn on discharge Renal function remained stable (10) DM type 2 (diabetes mellitus, type 2): with hyperglycemia now from steroids Received basal bolus insulin while here Can likely go back to home dosing of 70/30 insulin at 30 units twice daily on discharge May need to make adjustments based on hyperglycemia with prednisone use which will be completed in 2 days HbA1C 6.7% (11) HTN (hypertension): BPs now controlled -continue lisinopril, metoprolol, amlodipine (12) Hypothyroid: continue levothyroxine 50 mcg daily most recent TSH wnl (2.3 in 09/2021) (13) Hyperlipidemia: continue statin (14) GERD (gastroesophageal reflux disease): continue Prevacid per GT EGD 03/15 without any upper GI path such as esophagitis, PUD, etc. 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 h/o Parkinsonism continue Sinemet 0.5 mg TID cont thiamine (16) BPH (benign prostatic hyperplasia): with urinary retention s/p farley insertion continue Flomax started this admission He passed a trial of void after Farley catheter removed on 03/23 (17) Thrombocytopenia: chronic, typically runs low 100s Platelets are now around 150 (18) Depression: Cymbalta not compatible with GT feedings has been off of this for weeks now won't restart for now (19) B12 deficiency: resolved b12 level >1000 (20) Fever: suspected to be sinus source fevers resolved w/ rocephin finished 10 day course of rocephin 2gm daily cxr w/o pneumonia COVID testing negative urine culture negative (21) Kidney stones: seen on prior CT abd/pelvis if fevers recur consider repeat CT to ensure he has no obstructing stone -- but no abd pain or other features to suggest such (22) Schatzki's ring: s/p EGD dilatation 03/[address] Fan cont PPI Plan DVT proph - heparin drip --> [facility] Dispo-> plan to return to [facility] today Total Time Total Time Spent Total Time Spent (In Minutes): 60 minutes Discharge Plan Discharge Items Patient Disposition: Transfer Half-Way Fac Reason For Visit: CVA Discharge Diagnosis: Acute CVA, dysphagia Condition on Discharge: Fair Activity: As commented below Bathing: Keep incision dry Bathing Comment: G-tube Exercise/Sports: Gradually increase as tolerated Exercise Comment: with PT/OT Weightbearing: Full weightbearing Non-emergency contact: Primary Care Provider Call non-emergency contact if: you have any medication questions and your symptoms worsen Follow-up/Referrals: [facility] [Primary Care Provider] - Diet: Nothing by Mouth and Other - See Diet Comment Diet Comment: Tube feeds at 70mL/hr Addtl Attending Provider Instructions: Continue tube feeds, free water flushes as ordered. Please keep G-tube protected from accidental dislodgment with abdominal binder at nighttime until healed. Follow CBC, CMP, Magnesium, phosphorus in 1 week. Follow up with ENT Dr. Ge for sinuses and ears due to recent surgery. Continue PT/OT, and Speech Therapy for your stroke. Finish a few more days of prednisone for your gout flare. This has been making your glucose high and insulin adjustments may be required. Urinary retention was an issue and you had a Farley catheter placed x 2 weeks. You were started on Flomax and Farley was removed; you are now able to void on your own. Pending Studies at Discharge: No Stand-Alone Forms: Medications to Prevent Stroke, My [facility] Skilled Items Patient informed of condition?: Yes DNR: Yes Discharge Level of Care: Skilled Communicable Disease: No Discharge Prognosis: Improving Lines: None Urinary Catheter: No Medications and DC Order Prescriptions: New tamsulosin 0.4 mg Capsule 0.4 mg PEG HS Qty: 30 0RF apixaban 5 mg tablet 5 mg feeding tube BID Qty: 60 0RF amlodipine [Norvasc] 5 mg Tablet 5 mg G-tube QAM Qty: 30 0RF metoprolol tartrate 25 mg Tablet 25 mg feeding tube BID Qty: 60 0RF Fibersource HN 0.05 gram- 1.2 kcal/mL Liquid See Rx Instructions .ROUTE .COMPLEX Qty: 6000 0RF Rx Instructions: 70mL/hr Saline Mist 0.65 % Aerosol,Jay 2 spray NA [id number] Qty: 44 0RF docusate sodium 60 mg/15 mL Syrup 100 mg G-tube BID Qty: 480 0RF lansoprazole [Prevacid SoluTab] 15 mg Tablet,Disintegrat, Delay Rel 15 mg NG QAM Qty: 30 0RF polyethylene glycol 3350 [Miralax] 17 gram Powder In Packet 17 g G-tube DAILY Qty: 30 0RF prednisone 20 mg Tablet 20 mg feeding tube QAM 2 Days Qty: 2 0RF thiamine HCl (vitamin B1) 100 mg Tablet 200 mg PEG QAM Qty: 60 0RF Tube Feeding Water Flush 100 ml PEG Q4H Qty: 1000 8RF Continued (DME) OneTouch Ultra Blue Test Strip Strip See Rx Instructions .ROUTE .MEDSUPPLY Qty: 100 5RF Rx Instructions: Test Blood Sugars Two Times Daily (DME) lancets [OneTouch Delica Plus Lancet] 33 gauge misc See Rx Instructions .ROUTE .MEDSUPPLY Qty: 100 5RF Rx Instructions: Test Blood Sugars Two Times Daily (DME) blood-glucose meter [OneTouch Ultra2 Meter] Misc See Rx Instructions .ROUTE .MEDSUPPLY Qty: 1 0RF Rx Instructions: As directed (DME) pen needle, diabetic [BD Ultra-Fine Mary Carmen Pen Needle] 32 gauge x 5/32" needle See Dose Instructions .ROUTE .MEDSUPPLY Qty: 100 3RF Dose Instruction: As directed Rx Instructions: USE BID dx E11.9 hydrocortisone 2.5 % cream with perineal applicator 1 applic MS DAILY PRN (Reason: hemorrhoids) Qty: 30 1RF triamcinolone acetonide 0.1 % cream 1 applic topical BID Qty: 30 2RF glycerin Drops 2 drp OPHTHALMIC (EYE) BID diclofenac sodium 1 % gel 4 g TOP QID PRN (Reason: Pain) Rx Instructions: apply 4 grams topical four times daily; apply to single knee, ankle, foot; for foot includes sole/toes/top of foot ondansetron HCl 4 mg Tablet 4 mg PO Q8H PRN (Reason: Nausea) insulin aspart U-100 [Novolog U-100 Insulin aspart] 100 unit/mL Solution 1 sliding scale dose SUBCUT USEASDIRECTD Enema 19-7 gram/118 mL Enema 118 ml MS DAILY PRN (Reason: Constipation) Ozempic 0.25 mg or 0.5 mg(2 mg/1.5 mL) Pen Injector 0.5 mg SUBCUT WK Novolin 70-30 FlexPen U-100 100 unit/mL (70-30) insulin pen 30 unit SQ BID Changed atorvastatin 80 mg tablet 80 mg feeding tube HS Qty: 90 3RF acetaminophen 325 mg Tablet 650 mg feeding tube QID PRN (Reason: Pain) Qty: 30 0RF cyanocobalamin (vitamin B-12) 1,000 mcg Tablet 1,000 mcg feeding tube DAILY Qty: 30 0RF clopidogrel 75 mg tablet 75 mg feeding tube QAM Qty: 90 3RF famotidine 20 mg tablet 20 mg feeding tube BID Qty: 60 11RF levothyroxine 50 mcg tablet 50 mcg feeding tube QAM Qty: 90 3RF furosemide 20 mg Tablet 40 mg PO DAILY PRN (Reason: edema) Qty: 60 0RF carbidopa-levodopa [Sinemet] 25-100 mg tablet 0.5 tab feeding tube TID Qty: 45 1RF Rx Instructions: while awake lisinopril 40 mg Tablet 40 mg feeding tube DAILY Qty: 30 0RF pregabalin 100 mg capsule 100 mg feeding tube TID Qty: 90 3RF magnesium oxide 400 mg magnesium tablet 400 mg feeding tube BID Qty: 60 5RF Discontinued finasteride 5 mg tablet 5 mg PO QAM Qty: 90 3RF Eliquis 2.5 mg tablet 2.5 mg PO BID Qty: 180 3RF Fiber Therapy (m-cell/sugar) 2 gram/19 gram powder 2 g PO DAILY Qty: 454 0RF docusate sodium 100 mg capsule 100 mg PO BID Qty: 60 5RF Rx Instructions: to soften stool pantoprazole 40 mg Tablet,Delayed Release (Dr/Ec) 40 mg PO DAILY magnesium hydroxide 800 mg/5 mL Suspension 7.75 mg PO DIRECTED PRN (Reason: Constipation) duloxetine 60 mg capsule,delayed release(DR/EC) 30 mg PO QAM tramadol 50 mg Tablet 50 mg PO Q8H PRN (Reason: Pain) Qty: 20 0RF ofloxacin 0.3 % drops 5 drp OTIC (EAR) BID Qty: 5 5RF Discharge Orders: Discharge Order (Routine); Ordered 03/24/22 Ordered By: Hazel Paniagua/Other Patient Handouts: Managing Type 2 Diabetes Admission Data Admit Date/Time: 03/02/22 13:09 Attending Provider: Hazel Saravia Admit Provider: Alta Wadsworth Primary Care Provider: [facility] Other Providers: [facility] ; Pancho Feliciano ; Mikal Yates ; Tawnya Starr ; Candelario Fan ; Britt Ge ; Simon Turner ; Pancho Hernadez Other Interventions: Discharge Summary Assessment (RN) Last Done: 03/24/22 11:06 Coding Level of Care Code D/C DAY MANAGEMENT >30 MINS Diagnoses Dysphagia R13.10 Gout M10.9 Stroke I63.9 Epistaxis R04.0 Status post myringotomy with tube placement of both ears Z96.22 S/P nasal polypectomy Z98.890 Atrial fibrillation I48.21 Atrial fibrillation type: permanent Coronary artery disease I25.10 Stage III chronic kidney disease N18.3 DM type 2 (diabetes mellitus, type 2) E11.9; Z79.4 Diabetes mellitus complication status: without complication 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
== END 2022-03-24 12:42 | DRG 982 ==
LOC: ED 10:44 → SUATTDRO 13:09 → 2E 13:09